=== PATIENT | female | born 1935 ===

== ENCOUNTER → 2020-04-14 13:54 | Outpatient (BNVA) | payer MEDICARE, SELFPAY | PROVIDERS: PCP Internal Medicine; Visit Provider Internal Medicine | DX: J68.3 Other acute and subacute respiratory conditions due to chemicals, gases, fumes and vapors (principal); R05 Cough | CPT/HCPCS: 99202 ==

== ENCOUNTER 2020-05-05 | Outpatient (REF) | payer MEDICARE, SELFPAY | END 2020-05-05 00:01 | disposition home or self-care (01) | LOC: HO.VC | PROVIDERS: Visit Provider Internal Medicine | DX: Z23 Encounter for immunization (principal) | CPT/HCPCS: 0011A ==

== ENCOUNTER 2020-05-10 08:20 | Emergency (ER) | payer MEDICARE, SELFPAY ==
--- NOTE | ~2020-05-10 | CT_ITS ---
EXAMINATION: CT ABDOMEN AND PELVIS WITHOUT CONTRAST CLINICAL INFORMATION: Back pain. COMPARISON: None. TECHNIQUE: Multidetector volumetric imaging was performed from the superior aspect of the liver through the pubic symphysis. Sagittal and coronal reformatted images were obtained on the technologist's workstation. This CT examination was performed using dose optimization techniques as appropriate, variously including the following: *Automated exposure control *Adjustment of mA and/or kV according to patient size (this includes techniques or standardized protocols for targeted exams where dose is matched to indication/reason for exam; i.e. extremities or head) *Use of iterative reconstruction technique DLP: 555 mGy-cm. FINDINGS: LUNG BASES: Minimal bibasilar scarring or atelectasis. There is a 6 mm nodule right lower lobe, axial image 6/7 and a 5 mm right lower lobe nodule, axial image 3/7. The heart size is normal. LIVER, GALLBLADDER, AND BILIARY TREE: The liver is normal in size, shape, and attenuation. No focal hepatic lesion or biliary ductal dilatation is present. There are multiple radiopaque dependent gallstones. No wall thickening seen. PANCREAS: Unremarkable. SPLEEN: Unremarkable. ADRENAL GLANDS: Unremarkable. KIDNEYS AND URETERS: The kidneys are normal in size, shape, and attenuation. No hydronephrosis, hydroureter, or calculi seen. No perinephric stranding. BLADDER: The bladder is distended and appears unremarkable.. GASTROINTESTINAL TRACT: There is scattered diverticulosis and stool throughout the colon without distention or diverticulitis. The small bowel loops are normal caliber. Appendix is normal caliber. The stomach is nondistended. ABDOMINAL WALL: No significant hernia is appreciated. LYMPH NODES: Normal. VASCULAR: Unremarkable. PELVIC VISCERA: The uterus is anteverted and appears unremarkable. There is no free fluid or free air. No abnormal pelvic lymph nodes seen. OSSEOUS STRUCTURES: No lytic or sclerotic process seen. Mild degenerative disc changes, spondylosis with vacuum disc phenomena throughout the lumbar spine. There is mild compression deformity L1 vertebra of indeterminate age. There is moderate bilateral L5-S1, L4-L5, L3-L4 facet joint arthropathy. CT/CT abdomen pelvis wo con IMPRESSION: No acute intra-abdominal process seen. Moderate constipation and scattered colonic diverticulosis but no diverticulitis or obstruction seen. Cholelithiasis without wall thickening. No radiopaque urolith or hydroureteronephrosis. Two small lung nodules in right lower lobe. Correlate with CT chest exam.
--- NOTE | ~2020-05-10 | XR_ITS ---
EXAMINATION: XR LUMBOSACRAL SPINE CLINICAL INFORMATION: Pain COMPARISON: None TECHNIQUE: Three views of the lumbosacral spine. FINDINGS: There is a severe thoracolumbar scoliosis. There is a severe old-appearing T12 vertebral body fracture. There is evidence of multilevel degenerative disc disease. There is lower lumbar spine facet arthritis. There is a 4 x 7 mm calcification that projects over the left kidney questionable for a stone. XR/XR lumbar spine 2-3V IMPRESSION: Old T12 vertebral body compression fracture. Scoliosis, multilevel degenerative disc disease and facet arthritis. Question left renal stone.
--- NOTE | ~2020-05-10 | XR_ITS ---
EXAMINATION: LEFT HIP AND FEMUR X-RAY CLINICAL INFORMATION: Pain COMPARISON: None TECHNIQUE: 2 views of the left hip, one view of the pelvis and 2 views of the left femur FINDINGS: Left hip and pelvis: There is moderate bilateral hip arthritis with joint space narrowing and osteophyte formation. No fracture or dislocation is seen. Bones of the pelvis are unremarkable. There is atherosclerotic disease. Left femur: There is a left 3 component knee replacement. There is no knee joint effusion. No fracture or dislocation is seen. There is evidence of atherosclerotic disease. XR/XR hip LT w PEL1V IMPRESSION: Moderate bilateral hip arthritis. Left knee replacement. Atherosclerotic disease.
--- NOTE | ~2020-05-10 | XR_ITS ---
EXAMINATION: LEFT HIP AND FEMUR X-RAY CLINICAL INFORMATION: Pain COMPARISON: None TECHNIQUE: 2 views of the left hip, one view of the pelvis and 2 views of the left femur FINDINGS: Left hip and pelvis: There is moderate bilateral hip arthritis with joint space narrowing and osteophyte formation. No fracture or dislocation is seen. Bones of the pelvis are unremarkable. There is atherosclerotic disease. Left femur: There is a left 3 component knee replacement. There is no knee joint effusion. No fracture or dislocation is seen. There is evidence of atherosclerotic disease. XR/XR femur LT 2V IMPRESSION: Moderate bilateral hip arthritis. Left knee replacement. Atherosclerotic disease.
[2020-05-10 08:36] VITALS: BP 144/70; PULSE 71; RESP 18; TEMP 36.5; O2SAT 97; BMI 27.8
--- NOTE | 2020-05-10 08:48 | ED.BACK ---
HPI - Back Pain/Injury General Chief Complaint: Back Pain/Injury Stated Complaint: LOW BACK PAIN,NO INJURY PER EMS Time Seen by Provider: 05/10/20 08:28 Source: patient Mode of arrival: ambulatory Limitations: no limitations History of Present Illness HPI Narrative: 84 yo past medical history of high cholesterol, hypothyroidism, hypertension, seizure disorder, anxiety, gout, GERD, reactive airway disease here with complaints of left hip/lower back pain with radiation down left posterior thigh. NO numbness/tingling. Pain began yesterday, Denies fall or injury. Patient has bladder incontinence which is chronic and unchanged. She denies any bowel incontinence. No saddle anesthesia. No fevers or chills or abdominal pain or nausea or vomiting. Taking naproxen with continued symptoms. MD elicited complaint: back pain Onset (ago): day(s) Related Data Home Medications Medication Instructions Recorded Confirmed aspirin 81 mg tablet,delayed 81 mg PO DAILY 02/16/20 02/16/20 release levothyroxine 88 mcg tablet 88 mcg PO DAILY 02/16/20 02/16/20 terazosin 2 mg capsule 2 mg PO DAILY 02/16/20 02/16/20 mirabegron 25 mg tablet,extended 25 mg PO DAILY 02/24/20 release 24 hr Previous Rx's Medication Instructions Recorded triamcinolone acetonide 0.5 % 1 applic TOPICAL BID #15 g 02/16/20 topical cream divalproex 125 mg tablet,delayed 125 mg PO BID #360 tab 02/24/20 release meloxicam 15 mg tablet 15 mg PO DAILY #30 tab 03/21/20 fluticasone 250 mcg-salmeterol 50 1 inh INHALATION BID 30 Days #60 ea 04/14/20 mcg/dose blistr powdr for inhalation lorazepam 1 mg tablet 0.5 mg PO DAILY PRN 90 Days #45 tab 04/14/20 amlodipine 5 mg tablet 5 mg PO DAILY #90 tab 04/21/20 omeprazole 20 mg capsule,delayed 20 mg PO BID #180 cap 05/04/20 release cyclobenzaprine 10 mg PO TID PRN #10 tab 05/10/20 lidocaine [Lidoderm] 1 patch TOPICAL DAILY #15 ea 05/10/20 Allergies Allergy/AdvReac Type Severity Reaction Status Date / Time hydrochlorothiazide Allergy Unknown Electrolyte Verified 05/10/20 08:47 abnormality oxycodone [OXYCODONE] Allergy Unknown VOMITTING,C Verified 05/10/20 08:47 ONFUSION Review of Systems Review of Systems: Yes all other systems are reviewed and are negative Constitutional: Constitutional: Reports no additional constitutional complaints, Denies body ache(s), Denies chills, Denies fever(s), Denies headache(s) and Denies weakness Eyes: Eyes: Reports no additional eye complaints and Denies change in vision ENT: Reports system reviewed and no additional complaints, except as documented, Denies dizziness, Denies headache(s), Denies nasal congestion, Denies nasal discharge and Denies neck pain Cardiovascular: Cardiovascular: Reports no additional cardiovascular complaints, Denies chest pain, Denies leg edema and Denies dyspnea Respiratory: Respiratory: Reports no additional respiratory complaints, Denies cough and Denies dyspnea Gastrointestinal: Gastrointestinal: Reports no additional gastrointestinal complaints, Denies abdominal pain, Denies diarrhea, Denies nausea and Denies vomiting Genitourinary: Genitourinary: Reports no additional female genitourinary complaints and Denies urinary incontinence Musculoskeletal: Musculoskeletal: Reports no additional musculoskeletal complaints, Reports back pain, Denies arthralgias, Denies joint swelling, Denies neck pain, Denies numbness and Denies tingling Integumentary/Breasts: Skin/Breast: Reports system reviewed and no additional complaints, except as docu and Denies rash Neurologic: Reports system reviewed and no additional complaints, except as documented, Denies Abnormal speech present, Denies dizziness, Denies headache(s), Denies numbness, Denies tingling and Denies weakness [facility] Past Medical History Attestation statement: The following information was validated with the patient. Source: old records reviewed and nursing notes reviewed Medical History Anxiety Cholelithiasis CVA (cerebral vascular accident) GERD (gastroesophageal reflux disease) Gout Hypercholesterolemia Hypertension Hypothyroid Obesity (BMI 30-39.9) Pneumonia Psoriatic arthritis Reactive airways dysfunction syndrome Seizure disorder Vitamin D deficiency Surgical History History of knee replacement procedure of right knee History of left knee replacement Family History Family History Father No problems noted. Mother Acute CVA (cerebrovascular accident) Diabetes Brother Cancer Daughter History of nephrectomy Son Heart disease Social History Social History Advance Directives: No Advance Directives Information Provided: Yes Physical Exam Vital Signs: Vital Signs: Last Vital Signs Temp 97.7 F 05/10/20 08:36 Pulse 68 05/10/20 12:47 Resp 16 05/10/20 12:47 BP 143/68 H 05/10/20 12:47 Pulse Ox 98 05/10/20 12:47 Body Mass Index 27.8 Const: General: cooperative, healthy appearing, comfortable and no acute distress Orientation/consciousness: patient oriented x3 Limitations: no limitations HENMT: Head: Yes normal to inspection Ears: hearing grossly normal bilaterally General nose exam: Normal external nose present Face and sinus: Yes normal facial exam Mouth: Normal oral and palatal mucosa present Throat: Yes posterior oropharynx normal Eyes: General: appearance normal, both eyes and all related structures Pupils: Equal, round and reactive pupils present Neck: Neck: Yes normal visual inspection Chest: Chest palpation & inspection: normal inspection of the chest Resp: Effort & Inspection: normal respiratory effort Auscultation: clear to auscultation bilaterally Cardio: Rate: regular rate Rhythm: regular rhythm Peripheral pulses: Peripheral pulses 2+ throughout GI: Inspection: Yes normal to inspection Palpation (GI): Soft to palpation and nontender Auscultation: normal bowel sounds Rectal Exam - Female: normal sphincter tone Back/Spine/Pelvis: Thoracic/Lumbar Spine: thoracic and lumbar spine normal to inspection Skin: General skin exam: no rashes or lesions noted Neuro: General: patient oriented x3, no focal motor deficits and normal sensation to monofilament Cranial nerves: Yes Equal, round and reactive pupils present Cognition (Neuro): normal cognition Speech: No Abnormal speech present Gait exam (Neuro): Normal gait present Motor exam (neuro): 5/5 motor strength present throughout Sensory Exam: Normal double simultaneous stimulation for sensation Deep tendon reflexes (DTR's): Right patellar reflex intensity grade: 2+, Left patellar reflex intensity grade: 2+, Right ankle reflex intensity grade: 2+ and Left ankle reflex intensity grade: 2+ Extrem: Other: Pain over lateral left hip. Able to abduct and adduct with no issues. No pain with internal or external rotation. Leg is not shortened or rotated. Pain over left buttocks. Pain is worsened with straight leg raise. Palpable pulses distally noted. Normal sensation. General: Yes normal to inspection Course Course Course Narrative: 84-year-old female here with atraumatic lower back/left buttocks and left hip pain times 1-2 days. Normal neurological exam. No obvious shortening or rotation of the extremity. Will check x-rays, UA. Provide analgesia and reassess. 0945-x-ray show old T12 compression fracture. Scoliosis with multilevel degenerative disc disease and arthritis. Bilateral hip arthritis. No acute fracture or dislocation. There is a questionable left renal stone. Less likely renal colic with no CVA tenderness however does have persistent left lower back pain so will check CT a/P to rule out renal colic. Add on labs. 1405-CT shows no signs of kidney stone. There are 2 lesions in the right lower lung as well as evidence of gallstones with no acute cholecystitis. The patient has no pain over the right upper quadrant or vomiting. She has no complaints of shortness of breath or chest pain. I did communicate these findings to the patient as well as her daughter Katie and recommended follow-up outpatient with primary care. Patient is feeling much improved and pain is resolved. She was able to ambulate in the emergency department with a steady gait. Plan to discharge home with outpatient follow-up. She does live with her daughter and feels safe going home. Reviewed worrisome signs and symptoms of when to return to the emergency department. Comfortable discharge home. MDM - Back Pain/Injury Medical Records Attestation: I reviewed the patient's medical records. Lab Data Attestation: I reviewed the patient's lab results. Result diagrams: 05/10/20 10:28 05/10/20 12:03 Labs: Lab Results 05/10/20 05/10/20 05/10/20 Range/Units 10:28 11:38 12:03 WBC 6.8 (4.8-10.8) X10*3/uL RBC 4.31 (4.20-5.50) X10*6/uL Hgb 12.8 (12.0-16.0) g/dl Hct 38.5 (37-47) % MCV 89.3 (80-98) fL MCH 29.7 (27.0-33.0) pg MCHC 33.2 (31.0-35.0) g/dl RDW 12.9 (11.0-16.0) % Plt Count 166 (160-400) X10*3/uL MPV 10.0 (9.4-12.3) fL Immature Gran % (Auto) 0.3 (0.0-0.4) % Neut % (Auto) 71.5 (45-73) % Lymph % (Auto) 13.0 L (20-40) % [place] % (Auto) 8.9 (2-11) % Eos % (Auto) 5.6 H (0-4) % Baso % (Auto) 0.7 (0-2) % Lymph # (Auto) 0.9 L (1.2-4.9) X10*3/uL [place] # (Auto) 0.6 (0.1-1.2) X10*3/uL Eos # (Auto) 0.4 (0.0-0.4) X10*3/uL Baso # (Auto) 0.1 (0.0-0.2) X10*3/uL Abs Immat Gran (auto) 0.02 (0.00-0.03) X10*3/uL Absolute Neuts (auto) 4.8 (2.0-8.3) X10*3/uL Absolute Nucleated RBC 0.000 (0.0-0.012) X10*3/uL Nucleated RBC % (auto) 0.0 (0.0-0.2) /100WBC Sodium 135 (135-145) mmol/L Potassium 4.4 (3.3-5.1) mmol/L Chloride 100 (96-108) mmol/L Carbon Dioxide 29 (22-29) mmol/L Anion Gap 10 L (12-20) BUN 9 (9-16) mg/dL Creatinine 0.69 (0.5-1.4) mg/dL Estim Creat Clear Calc 56.2 Estimated GFR > 60 Random Glucose 94 (60-115) mg/dL Calcium 8.9 (8.4-10.2) mg/dL Urine Color STRAW Urine Appearance CLEAR Urine pH 8.0 (5.0-8.0) Ur Specific [place] 1.010 (1.005-1.025) Urine Protein NEG (NEG-TRACE) MG/DL Urine Glucose (UA) NEG (NEG) MG/DL Urine Ketones NEG (NEG) MG/DL Urine Blood TRACE (NEG) Urine Nitrite NEG (NEG) Ur Leukocyte Esterase NEG (NEG) Urine RBC 10-14 H (0) /HPF Urine WBC 0 (0-4) /HPF Ur Squamous Epith Cells NONE /LPF Urine Bacteria NONE /LPF Imaging Data left femur, left hip, lumbar spine : Attestation: I personally reviewed and interpreted this imaging study as follows: Radiologist's impression: EXAMINATION: LEFT HIP AND FEMUR X-RAY CLINICAL INFORMATION: Pain COMPARISON: None TECHNIQUE: 2 views of the left hip, one view of the pelvis and 2 views of the left femur FINDINGS: Left hip and pelvis: There is moderate bilateral hip arthritis with joint space narrowing and osteophyte formation. No fracture or dislocation is seen. Bones of the pelvis are unremarkable. There is atherosclerotic disease. Left femur: There is a left 3 component knee replacement. There is no knee joint effusion. No fracture or dislocation is seen. There is evidence of atherosclerotic disease. XR/XR hip LT w PEL1V IMPRESSION: Moderate bilateral hip arthritis. Left knee replacement. Atherosclerotic disease. EXAMINATION: XR LUMBOSACRAL SPINE CLINICAL INFORMATION: Pain COMPARISON: None TECHNIQUE: Three views of the lumbosacral spine. FINDINGS: There is a severe thoracolumbar scoliosis. There is a severe old-appearing T12 vertebral body fracture. There is evidence of multilevel degenerative disc disease. There is lower lumbar spine facet arthritis. There is a 4 x 7 mm calcification that projects over the left kidney questionable for a stone. XR/XR lumbar spine 2-3V IMPRESSION: Old T12 vertebral body compression fracture. Scoliosis, multilevel degenerative disc disease and facet arthritis. Question left renal stone. CT scan - abdomen: Attestation: I personally reviewed and interpreted this imaging study as follows: Radiologist's impression: EXAMINATION: CT ABDOMEN AND PELVIS WITHOUT CONTRAST CLINICAL INFORMATION: Back pain. COMPARISON: None. TECHNIQUE: Multidetector volumetric imaging was performed from the superior aspect of the liver through the pubic symphysis. Sagittal and coronal reformatted images were obtained on the technologist's workstation. This CT examination was performed using dose optimization techniques as appropriate, variously including the following: *Automated exposure control *Adjustment of mA and/or kV according to patient size (this includes techniques or standardized protocols for targeted exams where dose is matched to indication/reason for exam; i.e. extremities or head) *Use of iterative reconstruction technique DLP: 555 mGy-cm. FINDINGS: LUNG BASES: Minimal bibasilar scarring or atelectasis. There is a 6 mm nodule right lower lobe, axial image 6/7 and a 5 mm right lower lobe nodule, axial image 3/7. The heart size is normal. LIVER, GALLBLADDER, AND BILIARY TREE: The liver is normal in size, shape, and attenuation. No focal hepatic lesion or biliary ductal dilatation is present. There are multiple radiopaque dependent gallstones. No wall thickening seen. PANCREAS: Unremarkable. SPLEEN: Unremarkable. ADRENAL GLANDS: Unremarkable. KIDNEYS AND URETERS: The kidneys are normal in size, shape, and attenuation. No hydronephrosis, hydroureter, or calculi seen. No perinephric stranding. BLADDER: The bladder is distended and appears unremarkable.. GASTROINTESTINAL TRACT: There is scattered diverticulosis and stool throughout the colon without distention or diverticulitis. The small bowel loops are normal caliber. Appendix is normal caliber. The stomach is nondistended. ABDOMINAL WALL: No significant hernia is appreciated. LYMPH NODES: Normal. VASCULAR: Unremarkable. PELVIC VISCERA: The uterus is anteverted and appears unremarkable. There is no free fluid or free air. No abnormal pelvic lymph nodes seen. OSSEOUS STRUCTURES: No lytic or sclerotic process seen. Mild degenerative disc changes, spondylosis with vacuum disc phenomena throughout the lumbar spine. There is mild compression deformity L1 vertebra of indeterminate age. There is moderate bilateral L5-S1, L4-L5, L3-L4 facet joint arthropathy. CT/CT abdomen pelvis wo con IMPRESSION: No acute intra-abdominal process seen. Moderate constipation and scattered colonic diverticulosis but no diverticulitis or obstruction seen. Cholelithiasis without wall thickening. No radiopaque urolith or hydroureteronephrosis. Two small lung nodules in right lower lobe. Correlate with CT chest exam. Discharge Plan Discharge Clinical Impression: Sciatica Qualifiers: Laterality: left Qualified Code(s): M54.32 - Sciatica, left side Patient Disposition: Home, Self-Care Instructions: Sciatica (ED) Additional Instructions: Heat to the area Gentle stretching Continue tylenol and aleve for pain as needed Your CT shows a lot of arthritis as well as an old compression fracture in the back. There are also several gall stones in the gallbladder and 2 lesions noted on the right lower lung. You can follow-up with your doctor in regards to this. Prescriptions: New cyclobenzaprine 10 mg tablet 10 mg PO TID PRN (Reason: muscle spasm) Qty: 10 RF: 0 lidocaine [Lidoderm] 5 % adhesive patch,medicated 1 patch topical DAILY Qty: 15 RF: 0 No Action Myrbetriq 25 mg tablet extended release 24 hr 25 mg PO DAILY RF: 0 divalproex 125 mg tablet,delayed release (DR/EC) 125 mg PO BID Qty: 360 RF: 0 meloxicam 15 mg tablet 15 mg PO DAILY Qty: 30 RF: 2 lorazepam 1 mg tablet 0.5 mg PO DAILY PRN (Reason: anxiety) 90 Days Qty: 45 RF: 0 amlodipine 5 mg tablet 5 mg PO DAILY Qty: 90 RF: 1 omeprazole 20 mg capsule,delayed release(DR/EC) 20 mg PO BID Qty: 180 RF: 2 levothyroxine 88 mcg tablet 88 mcg PO DAILY RF: 0 aspirin [Adult Aspirin Regimen] 81 mg tablet,delayed release (DR/EC) 81 mg PO DAILY RF: 0 terazosin 2 mg capsule 2 mg PO DAILY RF: 0 triamcinolone acetonide 0.5 % cream 1 applic topical BID Qty: 15 RF: 0 fluticasone propion-salmeterol [Advair Diskus] 250-50 mcg/dose blister with device 1 inh inhalation BID 30 Days Qty: 60 RF: 2 Referrals: Physician,Unknown [Primary Care Provider] - 2 days Interventions: ED Discharge Assessment Last Done: 05/10/20 15:05 Discharge Date/Time: 05/10/20 14:30
--- NOTE | 2020-05-10 09:11 | PC.NURSE ---
MONICA DAUGHTER [phone]
[2020-05-10] MEDS: Cyclobenzaprine HCl 10 MG TABLET PO (09:16)
[2020-05-10] MEDS: Acetaminophen 325 MG TABLET 975 MG PO (09:16)
[2020-05-10] MEDS: Lidocaine 4 % Patch ADH..PATCH 1 PATCH TRANSDERMA (09:17)
[2020-05-10 10:33] LABS: MANUAL DIFF FLAG NO
[2020-05-10 10:35] LABS: Basophils Absolute Auto 0.1 X10*3/uL (0.0-0.2); Basophils Percent Auto 0.7 % (0-2); Eosinophils Absolute Auto 0.4 X10*3/uL (0.0-0.4); Eosinophils Percent Auto 5.6 % (0-4); Hematocrit 38.5 % (37-47); Hemoglobin 12.8 g/dl (12.0-16.0); Imm Gran Abs Auto 0.02 X10*3/uL (0.00-0.03); Imm Gran Pct Auto 0.3 % (0.0-0.4); Lymphocytes Absolute Auto 0.9 X10*3/uL (1.2-4.9); Mean Corpuscular HGB Conc 33.2 g/dl (31.0-35.0); Mean Corpuscular Hemoglobin 29.7 pg (27.0-33.0); Mean Corpuscular Volume 89.3 fL (80-98); Monocytes Absolute Auto 0.6 X10*3/uL (0.1-1.2); Monocytes Percent Auto 8.9 % (2-11); Neutrophils Absolute Auto 4.8 X10*3/uL (2.0-8.3); Neutrophils Percent Auto 71.5 % (45-73); Platelet Count 166 X10*3/uL (160-400); Red Blood Count 4.31 X10*6/uL (4.20-5.50); Red Cell Distribution Width 12.9 % (11.0-16.0); White Blood Count 6.8 X10*3/uL (4.8-10.8)
[2020-05-10 12:08] LABS: Glucose Urine UA NEG (NEG); Leukocyte Esterase Urine NEG (NEG); Nitrite Urine NEG (NEG); Urine Blood TRACE (NEG); Urine Ketones NEG (NEG); Urine Protein NEG (NEG-TRACE)
[2020-05-10 12:16] LABS: Appearance Urine CLEAR; Color Urine STRAW
--- NOTE | 2020-05-10 12:30 | PC.NURSE ---
RADIOLOGY NOTIFIED OF TARDY CT SCAN REPORT, STILL AWAITING. PT REPORTS DECREASED PAIN IN L LOWER BACK.
[2020-05-10 12:44] LABS: Anion Gap 10 (12-20); Blood Urea Nitrogen 9 mg/dL (9-16); Calcium 8.9 mg/dL (8.4-10.2); Carbon Dioxide 29 mmol/L (22-29); Chloride 100 mmol/L (96-108); Creatinine Clr Calc Pharmacy 56.2; Estimated Glomerular Filt Rate > 60; Glucose Random 94 mg/dL (60-115); Potassium 4.4 mmol/L (3.3-5.1); Sodium 135 mmol/L (135-145)
[2020-05-10 12:44] LABS: WBC Urine 0 /HPF (0-4)
[2020-05-10 12:47] VITALS: BP 143/68; PULSE 68; RESP 16; O2SAT 98
--- NOTE | 2020-05-10 13:07 | PC.NURSE ---
RADIOLOGY NOTIFIED OF DELAYED CT SCAN REPORT. PT REPORTING DECREASED PAIN.
== END 2020-05-10 14:30 | disposition home or self-care (01) ==
PROVIDERS: Nurse Practitioner Family; Emergency Provider Emergency Medicine
DX: M54.42 Lumbago with sciatica, left side (principal); M51.36 Other intervertebral disc degeneration, lumbar region; K80.20 Calculus of gallbladder without cholecystitis without obstruction; R91.8 Other nonspecific abnormal finding of lung field; I10 Essential (primary) hypertension
CPT/HCPCS: 36415; 72100; 73502; 73552; 74176; 80048; 81001; 81003; 85025; 99284

== ENCOUNTER 2020-06-01 | Outpatient (REF) | payer MEDICARE, SELFPAY | END 2020-06-01 00:01 | disposition home or self-care (01) | LOC: HO.VC | PROVIDERS: Visit Provider Internal Medicine | DX: Z23 Encounter for immunization (principal) | CPT/HCPCS: 0012A ==

== ENCOUNTER 2020-06-24 15:00 | Outpatient (REF) | payer MEDICARE, SELFPAY ==
[2020-06-24 16:09] LABS: MANUAL DIFF FLAG NO
[2020-06-24 16:16] LABS: Basophils Percent Auto 0.6 % (0-2); Eosinophils Absolute Auto 0.3 X10*3/uL (0.0-0.4); Eosinophils Percent Auto 3.7 % (0-4); Hematocrit 37.2 % (37-47); Hemoglobin 12.4 g/dl (12.0-16.0); Imm Gran Abs Auto 0.01 X10*3/uL (0.00-0.03); Imm Gran Pct Auto 0.1 % (0.0-0.4); Lymphocytes Absolute Auto 0.8 X10*3/uL (1.2-4.9); Lymphocytes Percent Auto 12.1 % (20-40); Mean Corpuscular HGB Conc 33.3 g/dl (31.0-35.0); Mean Corpuscular Hemoglobin 29.4 pg (27.0-33.0); Mean Corpuscular Volume 88.2 fL (80-98); Mean Platelet Volume 10.6 fL (9.4-12.3); Monocytes Absolute Auto 0.6 X10*3/uL (0.1-1.2); Monocytes Percent Auto 8.5 % (2-11); Neutrophils Absolute Auto 5.2 X10*3/uL (2.0-8.3); Platelet Count 182 X10*3/uL (160-400); Red Blood Count 4.22 X10*6/uL (4.20-5.50); Red Cell Distribution Width 12.9 % (11.0-16.0); White Blood Count 6.9 X10*3/uL (4.8-10.8)
[2020-06-24 16:33] LABS: Alanine Aminotransferase 13 U/L (0-31); Albumin Level 3.9 g/dL (3.5-5.0); Alkaline Phosphatase 62 U/L (39-117); Anion Gap 15 (12-20); Aspartate Amino Transferase 12 U/L (5-31); Bilirubin Total 0.4 mg/dL (0.0-1.0); Blood Urea Nitrogen 9 mg/dL (9-16); Calcium 8.8 mg/dL (8.4-10.2); Carbon Dioxide 26 mmol/L (22-29); Chloride 99 mmol/L (96-108); Estimated Glomerular Filt Rate > 60; Glucose Random 99 mg/dL (60-115); Potassium 3.8 mmol/L (3.3-5.1); Sodium 136 mmol/L (135-145); Total Protein 6.4 g/dL (6.5-8.0)
[2020-06-24 16:54] LABS: Thyroid Stimulating Hormone 0.26 uIU/mL (0.32-4.0)
[2020-06-24 17:02] LABS: Erythrocyte Sedimentation Rate 4 MM/HR (0-20)
== END 2020-06-24 15:01 | disposition home or self-care (01) ==
LOC: HO.LAB 15:00
PROVIDERS: PCP Internal Medicine; Visit Provider Internal Medicine
DX: R51.9 Headache, unspecified (principal)
CPT/HCPCS: 36415; 80053; 84443; 85025; 85652

== ENCOUNTER 2020-06-28 12:51 | Outpatient (REF) | payer MEDICARE, SELFPAY ==
--- NOTE | ~2020-06-28 | CT_ITS ---
EXAMINATION: CT HEAD WITHOUT CONTRAST CLINICAL INFORMATION: Headache. COMPARISON: None TECHNIQUE: Contiguous axial imaging was performed from the skull base to vertex without intravenous administration of contrast. This CT examination was performed using dose optimization techniques as appropriate, variously including the following: *Automated exposure control *Adjustment of mA and/or kV according to patient size (this includes techniques or standardized protocols for targeted exams where dose is matched to indication/reason for exam; i.e. extremities or head) *Use of iterative reconstruction technique DLP: 720 mGy-cm FINDINGS: There is no evidence of acute intracranial hemorrhage or territorial infarction. There is scattered small lacunar infarcts in the left basal ganglia No abnormal mass effect or midline shift is seen. [place] to white matter differentiation is well preserved. No extra-axial fluid collections are identified. The ventricles are enlarged but symmetrical. There is extensive periventricular white matter changes suggesting chronic small vessel. Bone windows reveal no calvarial abnormality. There is no scalp soft tissue abnormality. Bilateral paranasal sinuses and mastoid air cells are well-aerated. CT/CT head/brain wo con IMPRESSION: No acute intracranial process seen Age-related mild cerebral atrophy with chronic small vessel ischemic changes Small lacunar infarcts in left basal ganglia.
== END 2020-06-28 12:52 | disposition home or self-care (01) ==
LOC: HO.CT 12:51
PROVIDERS: PCP Internal Medicine; Visit Provider Internal Medicine
DX: R51.9 Headache, unspecified (principal)
CPT/HCPCS: 70450

== ENCOUNTER 2020-08-16 19:13 | Emergency (ER) | payer MEDICARE, SELFPAY ==
[2020-08-16 20:55] VITALS: BP 148/83; PULSE 72; RESP 20; TEMP 36.7; O2SAT 98; BMI 30.2
--- NOTE | 2020-08-16 21:30 | ED.ANIMALBIT ---
HPI - Animal Bite General Chief Complaint: Animal Bite Stated Complaint: dog bite Time Seen by Provider: 08/16/20 21:33 Source: patient Mode of arrival: ambulatory Limitations: no limitations History of Present Illness MD complaint: animal bite Onset (ago): hour(s) Animal: dog Description of animal: household pet, immunizations UTD and appeared well Mechanism: bite Location - Extremities: right: forearm Pain description: dull Context: unprovoked Associated symptoms: none Treatments prior to arrival: wound dressing(s) Related Data Patient tetanus UTD: No Home Medications Medication Instructions Recorded Confirmed aspirin 81 mg tablet,delayed 81 mg PO DAILY 02/16/20 08/13/20 release terazosin 2 mg capsule 2 mg PO DAILY 02/16/20 08/13/20 Previous Rx's Medication Instructions Recorded triamcinolone acetonide 0.5 % 1 applic TOPICAL BID #15 g 02/16/20 topical cream fluticasone 250 mcg-salmeterol 50 1 inh INHALATION BID 30 Days #60 ea 04/14/20 mcg/dose blistr powdr for inhalation amlodipine 5 mg tablet 5 mg PO DAILY #90 tab 04/21/20 omeprazole 20 mg capsule,delayed 20 mg PO BID #180 cap 05/04/20 release lidocaine [Lidoderm] 1 patch TOPICAL DAILY #15 ea 05/10/20 mirabegron 25 mg tablet,extended 25 mg PO DAILY #90 tab 05/12/20 release 24 hr tramadol 50 mg tablet 50 mg PO BEDTIME #30 tab 05/12/20 divalproex 125 mg tablet,delayed 125 mg PO .COMPLEX #360 tab 05/31/20 release meloxicam 15 mg tablet 15 mg PO DAILY #30 tab 06/10/20 levothyroxine 88 mcg tablet 88 mcg PO .COMPLEX #90 tab 06/24/20 sumatriptan succinate 50 mg tablet 50 mg PO .COMPLEX PRN #10 tab 06/24/20 lorazepam 1 mg tablet 0.5 mg PO DAILY PRN 90 Days #45 tab 08/11/20 amoxicillin-pot clavulanate 1 tab PO BID #14 tab 08/16/20 [Augmentin] Allergies Allergy/AdvReac Type Severity Reaction Status Date / Time hydrochlorothiazide Allergy Unknown Electrolyte Verified 08/16/20 20:55 abnormality oxycodone [OXYCODONE] Allergy Unknown VOMITTING,C Verified 08/16/20 20:55 ONFUSION Review of Systems Review of Systems: Constitutional : No Fever, No Chills, Cardiovascular : No Chest Pain, No SOB Respiratory : No Dyspnea Gastrointestinal : No abdominal pain Musculoskeletal : No Joint Swelling Skin : No rash, positive animal bite Neuro : No Weakness, No Numbness Psych : No SI/HI PMFSH Past Medical History Attestation statement: The following information was validated with the patient. Medical History Anxiety Cholelithiasis CVA (cerebral vascular accident) GERD (gastroesophageal reflux disease) Gout Hip osteoarthritis Hypercholesterolemia Hypertension Hypothyroid Obesity (BMI 30-39.9) Overweight (BMI 25.0-29.9) Pneumonia Psoriatic arthritis Reactive airways dysfunction syndrome Seizure disorder Vitamin D deficiency Surgical History History of knee replacement procedure of right knee History of left knee replacement Family History Family History Father No problems noted. Mother Acute CVA (cerebrovascular accident) Diabetes Brother Cancer Daughter History of nephrectomy Son Heart disease Social History Social History Alcohol intake: never Smoking Status: Never smoker Advance Directives: No Advance Directives Information Provided: Yes Physical Exam Vital Signs: Vital Signs: Last Vital Signs Temp 98.1 F 08/16/20 20:55 Pulse 72 08/16/20 20:55 Resp 20 08/16/20 20:55 BP 148/83 H 08/16/20 20:55 Pulse Ox 98 08/16/20 20:55 Body Mass Index 30.2 Appearance: Alert. Oriented X3. No acute distress. Eyes: Pupils equal, round and reactive to light. ENT: Pharynx normal. Neck: Normal inspection. Neck supple. CVS: Pulses normal. Respiratory: No respiratory distress. Abdomen: Soft and nontender. Skin: Skin warm and dry. Normal skin color. Normal skin turgor. Extremities: R forearm one superficial abrasion posterior surface, lower posterior forearm small abrasion puncture wound 1cm no FB noted Neuro: Oriented X 3. No motor deficit. No sensory deficit. MDM - Animal Bite MDM Narrative Medical decision making narrative: 84 yo female s/p her own dog biting her tonight - utd on shots, dog is getting old no concerns for safety, small abrasions/puncture wound on R forearm - no indication for sutures, wound care and update Tdap give augmentin Discharge Plan Discharge Clinical Impression: Dog bite Qualifiers: Encounter type: initial encounter Qualified Code(s): W54.0XXA - Bitten by dog, initial encounter Patient Disposition: Home, Self-Care Instructions: Diphtheria/Acellular Pertussis/Tetanus Vaccine (DTaP) (By injection), Animal Bite (ED) Additional Instructions: return to ED for any worsening symptoms or concerns keep wound covered, monitor for redness, swelling, yellow drainage Prescriptions: New amoxicillin-pot clavulanate [Augmentin] 875-125 mg tablet 1 tab PO BID Qty: 14 RF: 0 No Action amlodipine 5 mg tablet 5 mg PO DAILY Qty: 90 RF: 1 omeprazole 20 mg capsule,delayed release(DR/EC) 20 mg PO BID Qty: 180 RF: 2 divalproex 125 mg tablet,delayed release (DR/EC) 125 mg PO .COMPLEX Qty: 360 RF: 11 meloxicam 15 mg tablet 15 mg PO DAILY Qty: 30 RF: 5 levothyroxine 88 mcg tablet 88 mcg PO .COMPLEX Qty: 90 RF: 2 lorazepam 1 mg tablet 0.5 mg PO DAILY PRN (Reason: anxiety) 90 Days Qty: 45 RF: 1 lidocaine [Lidoderm] 5 % adhesive patch,medicated 1 patch topical DAILY Qty: 15 RF: 0 tramadol 50 mg tablet 50 mg PO BEDTIME Qty: 30 RF: 1 Myrbetriq 25 mg tablet extended release 24 hr 25 mg PO DAILY Qty: 90 RF: 1 aspirin [Adult Aspirin Regimen] 81 mg tablet,delayed release (DR/EC) 81 mg PO DAILY RF: 0 terazosin 2 mg capsule 2 mg PO DAILY RF: 0 triamcinolone acetonide 0.5 % cream 1 applic topical BID Qty: 15 RF: 0 sumatriptan succinate [Imitrex] 50 mg tablet 50 mg PO .COMPLEX PRN (Reason: migraine headache) Qty: 10 RF: 1 fluticasone propion-salmeterol [Advair Diskus] 250-50 mcg/dose blister with device 1 inh inhalation BID 30 Days Qty: 60 RF: 2 Referrals: Po,Lorenver O, MD [Primary Care Provider] - 2 days (for wound check)
[2020-08-16] MEDS: Diphth,Pertus(ACell),Tet Adult 0.5 ML SYRINGE IM (21:54)
[2020-08-16] MEDS: Amoxicillin/Potassium Clav 875 MG TABLET PO (21:55)
== END 2020-08-16 22:03 | disposition home or self-care (01) ==
PROVIDERS: Emergency Provider Emergency Medicine; PCP Internal Medicine
DX: S50.871A Other superficial bite of right forearm, initial encounter (principal); M79.631 Pain in right forearm; W54.0XXA Bitten by dog, initial encounter; Y93.9 Activity, unspecified; Y92.9 Unspecified place or not applicable; Y99.9 Unspecified external cause status; Z79.899 Other long term (current) drug therapy; Z79.82 Long term (current) use of aspirin
CPT/HCPCS: 90471; 90715; 99284

== ENCOUNTER 2021-05-05 17:26 | Outpatient (REF) | payer MEDICARE, SELFPAY ==
--- NOTE | ~2021-05-05 | XR_ITS ---
EXAMINATION: XR PELVIS XR SACRUM AND COCCYX XR HIPS, BILATERAL. CLINICAL INFORMATION: Hip and pelvic pain. COMPARISON: 05/10/2020 TECHNIQUE: AP radiograph of the pelvis. 3 views of the sacrum and coccyx. AP and frog-lateral views of each hip. FINDINGS: Normal alignment of the sacrum and coccyx with no fracture. Vtzu-nn-gnkygiop bilateral hip osteoarthritis with superomedial joint space narrowing, not significantly changed. No acute osseous abnormality. Mild bilateral sacroiliac osteoarthritis appears similar. Diffuse vascular calcifications. Severe degenerative disc disease and scoliosis of the visualized lumbar spine. XR/XR pelvis 1-2V IMPRESSION: Moderate bilateral hip osteoarthritis. No acute abnormalities. No significant change.
--- NOTE | ~2021-05-05 | XR_ITS ---
EXAMINATION: XR PELVIS XR SACRUM AND COCCYX XR HIPS, BILATERAL. CLINICAL INFORMATION: Hip and pelvic pain. COMPARISON: 05/10/2020 TECHNIQUE: AP radiograph of the pelvis. 3 views of the sacrum and coccyx. AP and frog-lateral views of each hip. FINDINGS: Normal alignment of the sacrum and coccyx with no fracture. Zofk-ev-vfnsosog bilateral hip osteoarthritis with superomedial joint space narrowing, not significantly changed. No acute osseous abnormality. Mild bilateral sacroiliac osteoarthritis appears similar. Diffuse vascular calcifications. Severe degenerative disc disease and scoliosis of the visualized lumbar spine. XR/XR hips ATUL min 3V IMPRESSION: Moderate bilateral hip osteoarthritis. No acute abnormalities. No significant change.
--- NOTE | ~2021-05-05 | XR_ITS ---
EXAMINATION: XR PELVIS XR SACRUM AND COCCYX XR HIPS, BILATERAL. CLINICAL INFORMATION: Hip and pelvic pain. COMPARISON: 05/10/2020 TECHNIQUE: AP radiograph of the pelvis. 3 views of the sacrum and coccyx. AP and frog-lateral views of each hip. FINDINGS: Normal alignment of the sacrum and coccyx with no fracture. Srix-hm-tzjtufer bilateral hip osteoarthritis with superomedial joint space narrowing, not significantly changed. No acute osseous abnormality. Mild bilateral sacroiliac osteoarthritis appears similar. Diffuse vascular calcifications. Severe degenerative disc disease and scoliosis of the visualized lumbar spine. XR/XR sacrum coccyx min 2V IMPRESSION: Moderate bilateral hip osteoarthritis. No acute abnormalities. No significant change.
== END 2021-05-05 17:27 | disposition home or self-care (01) ==
LOC: HO.XRAY 17:26
PROVIDERS: PCP Internal Medicine; Visit Provider Nurse Practitioner Family
DX: M79.18 Myalgia, other site (principal); M25.551 Pain in right hip; M25.552 Pain in left hip; Z91.81 History of falling
CPT/HCPCS: 72170; 72220; 73522

== ENCOUNTER 2021-05-10 13:17 | Outpatient (REF) | payer MEDICARE, SELFPAY ==
--- NOTE | ~2021-05-10 | CT_ITS ---
EXAMINATION: CT HEAD WITHOUT CONTRAST CLINICAL INFORMATION: Headache. COMPARISON: CT head 06/28/2020 TECHNIQUE: Contiguous axial imaging was performed from the skull base to vertex without intravenous administration of contrast. Coronal and sagittal reformatted images are performed at the CT scanner. [This CT examination was performed using dose optimization techniques as appropriate, variously including the following: *Automated exposure control *Adjustment of mA and/or kV according to patient size (this includes techniques or standardized protocols for targeted exams where dose is matched to indication/reason for exam; i.e. extremities or head) *Use of iterative reconstruction technique] DLP: 670 mGy-cm. FINDINGS: There is no evidence of acute intracranial hemorrhage or territorial infarction. No abnormal mass-effect or midline shift is seen. Rutledge to white matter differentiation is well preserved. No extra-axial fluid collections are identified. There is generalized global volume loss. There is moderate prominence of the ventricles and the sulci . There is wokmurja-ts-dlukny hypodensity of the periventricular white matter due to chronic small vessel ischemic disease. There are vascular calcifications of the internal carotid arteries bilaterally. There is no osseous abnormality. The mastoid air cells and visualized portions of the paranasal sinuses are well-aerated. CT/CT head/brain wo con IMPRESSION: No acute intracranial pathology.
== END 2021-05-10 13:18 | disposition home or self-care (01) ==
LOC: HO.CT 13:17
PROVIDERS: Visit Provider Nurse Practitioner Family
DX: R51.9 Headache, unspecified (principal); Z91.81 History of falling
CPT/HCPCS: 70450

== ENCOUNTER 2021-05-11 13:21 | Outpatient (REF) | payer MEDICARE, SELFPAY ==
[2021-05-11 13:51] LABS: Appearance Urine CLEAR; Color Urine YELLOW; Glucose Urine UA NEG (NEG); Leukocyte Esterase Urine TRACE (NEG); Nitrite Urine NEG (NEG); UACC Culture Trigger YES; Urine Blood NEG (NEG); Urine Ketones NEG (NEG); Urine Protein NEG (NEG-TRACE)
[2021-05-11 14:15] LABS: Mucus Urine 1+ /LPF; Renal Epithelial Cells Urine 1+ /LPF; Squamous Epithelial Cell Urine 1+ /LPF
[2021-05-11 14:16] LABS: RBC Urine 0 /HPF (0)
== END 2021-05-11 13:22 | disposition home or self-care (01) ==
LOC: HO.LNP 13:21
PROVIDERS: Visit Provider Nurse Practitioner Family
DX: R30.9 Painful micturition, unspecified (principal)
CPT/HCPCS: 81001; 87086

== ENCOUNTER 2021-06-23 07:34 | Outpatient (REF) | payer MEDICARE, SELFPAY ==
[2021-06-23 08:06] LABS: MANUAL DIFF FLAG NO
[2021-06-23 08:39] LABS: Basophils Absolute Auto 0.1 X10*3/uL (0.0-0.2); Basophils Percent Auto 1.1 % (0-2); Eosinophils Absolute Auto 0.4 X10*3/uL (0.0-0.4); Eosinophils Percent Auto 7.5 % (0-4); Hematocrit 39.7 % (37.0-47.0); Hemoglobin 13.1 g/dl (12.0-16.0); Imm Gran Abs Auto 0.01 X10*3/uL (0.00-0.03); Imm Gran Pct Auto 0.2 % (0.0-0.4); Lymphocytes Absolute Auto 0.8 X10*3/uL (1.2-4.9); Lymphocytes Percent Auto 16.8 % (20-40); Mean Corpuscular Hemoglobin 30.2 pg (27.0-33.0); Mean Corpuscular Volume 91.5 fL (80.0-98.0); Mean Platelet Volume 10.3 fL (9.4-12.3); Monocytes Absolute Auto 0.4 X10*3/uL (0.1-1.2); Monocytes Percent Auto 7.7 % (2-11); Neutrophils Absolute Auto 3.1 x10*3/uL (2.0-8.3); Neutrophils Percent Auto 66.7 % (45-73); Platelet Count 197 X10*3/uL (160-400); Red Blood Count 4.34 X10*6/uL (4.20-5.50); Red Cell Distribution Width 12.5 % (11.0-16.0); White Blood Count 4.7 X10*3/uL (4.8-10.8)
[2021-06-23 09:08] LABS: Estimated Average Glucose 103 mg/dL; Hemoglobin A1c % 5.2 %
[2021-06-23 09:15] LABS: Alanine Aminotransferase 7 U/L (0-31); Albumin Level 3.9 g/dL (3.5-5.0); Alkaline Phosphatase 60 U/L (39-117); Anion Gap 12 (12-20); Aspartate Amino Transferase 11 U/L (5-31); Bilirubin Total 0.5 mg/dL (0.0-1.0); Blood Urea Nitrogen 5 mg/dL (9-16); Calcium 9.4 mg/dL (8.4-10.2); Carbon Dioxide 27 mmol/L (22-29); Chloride 102 mmol/L (96-108); Cholesterol 210 mg/dL; Estimated Glomerular Filt Rate > 60; Glucose Random 90 mg/dL (60-115); HDL Cholesterol 47 mg/dL; LDL Cholesterol Calculated 133 mg/dl; Potassium 3.9 mmol/L (3.3-5.1); Sodium 137 mmol/L (135-145); Total Protein 6.3 g/dL (6.5-8.0); Triglycerides 151 mg/dL
[2021-06-23 09:24] LABS: Free T4 (Free Thyroxine) 0.72 ng/dL (0.71-1.85); Thyroid Stimulating Hormone 6.62 uIU/mL (0.32-4.0)
[2021-06-23 09:42] LABS: Folate 8.5 ng/mL (> or = 4.0); Vitamin B12 367 pg/mL (200-900)
[2021-06-23 14:59] LABS: Vitamin D 25-OH Total 9.2 ng/mL (>30)
== END 2021-06-23 07:35 | disposition home or self-care (01) ==
LOC: HO.LAB 07:34
PROVIDERS: PCP Internal Medicine; Visit Provider Internal Medicine
DX: E78.00 Pure hypercholesterolemia, unspecified (principal); E03.9 Hypothyroidism, unspecified; K21.9 Gastro-esophageal reflux disease without esophagitis
CPT/HCPCS: 36415; 80053; 80061; 82306; 82607; 82746; 83036; 84439; 84443; 85025

== ENCOUNTER 2021-07-26 15:13 | Outpatient (REF) | payer MEDICARE, SELFPAY ==
--- NOTE | ~2021-07-26 | US_ITS ---
EXAMINATION: US EXTRACRANIAL CAROTID DUPLEX, BILATERAL CLINICAL INFORMATION: Stenosis identified on CT COMPARISON: 08/16/2012 TECHNIQUE: Real-time ultrasound and Doppler techniques (integrating B-mode 2-D vascular images, Doppler spectral analysis and color-flow Doppler imaging) were utilized to interrogate the extracranial carotid arteries, the vertebral arteries and proximal subclavian arteries bilaterally. The degree of stenosis is determined by criteria similar to NASCET. FINDINGS: Right Side: 1. There is dense calcified atherosclerotic plaque seen in the bifurcation/proximal ICA region. 2. The common carotid artery PSV proximally is 93.2 cm/s and distally 87.4 cm/s. 3. The proximal internal carotid artery velocities are 60.1 cm/s systolic and 14.1 cm/s diastolic. 4. The proximal external carotid artery PSV is 83.8 cm/s. 5. The vertebral artery shows antegrade flow. 6. The subclavian artery waveforms are normal. Left Side: 1. There is dense calcified atherosclerotic plaque seen in the bifurcation/proximal ICA region. 2. The common carotid artery PSV proximally is 87.4 cm/s and distally 82.1 cm/s. 3. The proximal internal carotid artery velocities are 73.9 cm/s systolic and 15.2 cm/s diastolic. 4. The proximal external carotid artery PSV is 139 cm/s. 5. The vertebral artery shows antegrade flow. 6. The subclavian artery waveforms are normal. US/US carotid duplex BI IMPRESSION: 1. RIGHT: Minimal, non-hemodynamically significant stenosis of the proximal right internal carotid artery corresponding to a 0-49% stenosis by velocity criteria. 2. LEFT: Minimal, non-hemodynamically significant stenosis of the proximal left internal carotid artery corresponding to a 0-49% stenosis by velocity criteria.
== END 2021-07-26 15:14 | disposition home or self-care (01) ==
LOC: HO.HMGCX 15:13
PROVIDERS: Visit Provider Nurse Practitioner Family
DX: I65.23 Occlusion and stenosis of bilateral carotid arteries (principal)
CPT/HCPCS: 93880

== ENCOUNTER 2022-01-04 16:59 | Outpatient (REF) | payer MEDICARE, SELFPAY ==
--- NOTE | ~2022-01-04 | XR_ITS ---
EXAMINATION: XR CERVICAL SPINE CLINICAL INFORMATION: Neck pain. COMPARISON: None TECHNIQUE: 3 views of the cervical spine were obtained. FINDINGS: There is mild straightening of cervical lordosis. There is grade 1 anterolisthesis C3 over C4. Rest the alignment is normal. The vertebral heights are normal.. There is loss of C3-C4 and C5-C6 disc heights. Rest of the disc heights are normal. The craniovertebral junction and the C1-C2 alignment is normal. No visible acute fracture, dislocation or subluxation seen. The prevertebral soft tissues are normal. XR/XR cervical spine 3V IMPRESSION: Degenerative disc changes. No visible acute fracture or dislocation seen. Grade I anterolisthesis C3 over C4.
== END 2022-01-04 17:00 | disposition home or self-care (01) ==
LOC: HO.XRAY 16:59
PROVIDERS: Absent Provider Internal Medicine; PCP Internal Medicine; Visit Provider Nurse Practitioner Family
DX: M54.2 Cervicalgia (principal)
CPT/HCPCS: 72040

== ENCOUNTER 2022-02-22 09:34 | Outpatient (REF) | payer MEDICARE, SELFPAY ==
[2022-02-22 09:46] LABS: MANUAL DIFF FLAG NO
[2022-02-22 10:23] LABS: Basophils Absolute Auto 0.1 X10*3/uL (0.0-0.2); Eosinophils Absolute Auto 0.2 X10*3/uL (0.0-0.4); Hemoglobin 13.8 g/dl (12.0-16.0); Imm Gran Abs Auto 0.02 X10*3/uL (0.00-0.03); Imm Gran Pct Auto 0.3 % (0.0-0.4); Lymphocytes Percent Auto 16.5 % (20-40); Mean Corpuscular HGB Conc 32.9 g/dl (31.0-35.0); Mean Corpuscular Hemoglobin 29.6 pg (27.0-33.0); Mean Corpuscular Volume 89.9 fL (80.0-98.0); Mean Platelet Volume 10.3 fL (9.4-12.3); Monocytes Absolute Auto 0.6 X10*3/uL (0.1-1.2); Monocytes Percent Auto 9.4 % (2-11); Neutrophils Absolute Auto 4.1 x10*3/uL (2.0-8.3); Neutrophils Percent Auto 68.8 % (45-73); Platelet Count 198 X10*3/uL (160-400); Red Blood Count 4.67 X10*6/uL (4.20-5.50); Red Cell Distribution Width 12.6 % (11.0-16.0); White Blood Count 5.9 X10*3/uL (4.8-10.8)
[2022-02-22 10:58] LABS: Valproate 48.7 mcg/mL (50.0-100.0)
[2022-02-22 11:19] LABS: Alanine Aminotransferase 9 U/L (0-31); Albumin Level 4.1 g/dL (3.5-5.0); Alkaline Phosphatase 71 U/L (39-117); Anion Gap 13 (12-20); Aspartate Amino Transferase 11 U/L (5-31); Bilirubin Total 0.5 mg/dL (0.0-1.0); Blood Urea Nitrogen 8 mg/dL (9-16); Calcium 9.6 mg/dL (8.4-10.2); Carbon Dioxide 29 mmol/L (22-29); Chloride 100 mmol/L (96-108); Estimated Glomerular Filt Rate > 60; Free T4 (Free Thyroxine) 1.77 ng/dL (0.71-1.85); Glucose Random 87 mg/dL (60-115); Potassium 4.4 mmol/L (3.3-5.1); Sodium 138 mmol/L (135-145); Thyroid Stimulating Hormone 0.28 uIU/mL (0.32-4.0); Total Protein 6.6 g/dL (6.5-8.0)
== END 2022-02-22 09:35 | disposition home or self-care (01) ==
LOC: HO.LAB 09:34
PROVIDERS: PCP Internal Medicine; Visit Provider Internal Medicine
DX: G40.909 Epilepsy, unspecified, not intractable, without status epilepticus (principal)
CPT/HCPCS: 36415; 80053; 80164; 84439; 84443; 85025

== ENCOUNTER 2022-03-01 09:47 | Outpatient (REF) | payer MEDICARE, SELFPAY ==
--- NOTE | ~2022-03-01 | XR_ITS ---
EXAMINATION: XR CHEST CLINICAL INFORMATION: R05 - Cough COMPARISON: Chest radiographs 09/20/2019, 08/14/2019. CT abdomen 05/10/2020. TECHNIQUE: 2 views of the chest were obtained. FINDINGS: There is mild coarsening bronchiolar markings infrahilar region similar to prior exam. No hyperinflation. No airspace consolidation or groundglass opacity or effusion. The costophrenic sulci are clear. The heart is normal in size. There is retrocardiac lucency consistent with a hiatal hernia similar to CT 05/10/2020. The hilar contours are unremarkable. There is no acute bony abnormality. XR/XR chest 2V IMPRESSION: -Mild coarsening bronchiolar markings similar to prior exam. -No vascular congestion, airspace consolidation, groundglass opacity.
== END 2022-03-01 09:48 | disposition home or self-care (01) ==
LOC: HO.XRAY 09:47
PROVIDERS: PCP Internal Medicine; Visit Provider Internal Medicine
DX: R05.9 Cough, unspecified (principal)
CPT/HCPCS: 71046

== ENCOUNTER 2022-03-01 10:00 | Outpatient (RCR) | payer MEDICARE, SELFPAY ==
--- NOTE | 2022-02-07 13:20 | MHC.PT.EP ---
[facility] [place] Office [place] Office [place] Office [address] [place] [phone] F: [phone] F: [phone] F: [phone] F: [phone] Physical Therapy Plan of Care Date of Evaluation: Date of Surgery: Diagnosis: cervicalagia Assessment: 86 y/o F RHD female referred to PT with cervicalgia. She has intermittent chronic neck pain for several years of insidious onset and recently worsened. She notes pain is worse with prolonged reading especially when she keeps the book on the couch to the L. Examination shows decreased cervical/shoulder AROM, decreased shoulder strength, impaired posture, and increased TTP L upper trapezius. Significant education re behavioral modifications such as using bookstand on a table to improve neutral cervical posture while reading as well as taking 'movement breaks' whlie reading. Recommend 2 more visits to distribute HEP, progress posture, and optmiize functional mobility. Frequency and Duration: The patient will be seen 1x/week every other week for 3 weeks Short Term Goals: 1 week I with HEP I with postural modification while reading Detention Goals: 3 weeks I with HEP and self management of sx Reports 50% decrease in pain (IR ranges 3-10) Improve NDI to 10/35 (IR 15/35) Treatment Plan: Modalities to reduce pain, spasms and effusion. Manual therapy to restore motion and function. Therapeutic exercise to improve strength and flexibility. Neuromuscular re-education for posture and balance. Therapeutic activities to return to functional activities of daily living. Electronically signed by: Regi Villarreal PT Please sign and return to therapist. Thank you for your referral.
--- NOTE | 2022-04-17 07:16 | MHC.PT.DC ---
[facility] [place] Office [place] Office [place] Office [address] [place] [address] [phone] F: [phone] F: [phone] F: [phone] F: [phone] Physical Therapy Discharge Report Diagnosis: cervicalagia Date of Surgery: Date of Evaluation: 02/07/22 Date of Discharge: 04/17/22 Treatments to Date: 2 Cancellations to Date: 1 No Shows to Date: 0 Discharge Status: Independent with HEP Patient Elected to Stop Discharge Summary: She cancelled last visit. At last attended visit, reviewed ergonomic adjustments and supported seated posture to decrease cervical strain while reading. She has made these changes and notes some improvement. Pt to continue with gentle HEP. Electronically signed by: Regi Villarreal PT, DPT Please sign and return to therapist. Thank you for your referral.
== END 2022-04-17 07:17 | disposition home or self-care (01) ==
LOC: HO.PT 10:00
PROVIDERS: PCP Internal Medicine; Visit Provider Nurse Practitioner Family
DX: M54.2 Cervicalgia (principal)
CPT/HCPCS: 97110; 97161

== ENCOUNTER 2022-06-05 11:08 | Outpatient (REF) | payer MEDICARE, SELFPAY ==
[2022-06-05 13:32] LABS: Valproate 63.4 mcg/mL (50.0-100.0)
[2022-06-05 13:46] LABS: Free T4 (Free Thyroxine) 1.49 ng/dL (0.71-1.85); Thyroid Stimulating Hormone 0.59 uIU/mL (0.32-4.0)
[2022-06-05 13:50] LABS: Magnesium 1.6 mg/dL (1.6-2.6)
== END 2022-06-05 11:09 | disposition home or self-care (01) ==
LOC: HO.LAB 11:08
PROVIDERS: PCP Internal Medicine; Visit Provider Internal Medicine
DX: E03.9 Hypothyroidism, unspecified (principal); G40.909 Epilepsy, unspecified, not intractable, without status epilepticus
CPT/HCPCS: 36415; 80164; 83735; 84439; 84443

== ENCOUNTER 2022-07-28 10:42 | Outpatient (REF) | payer MEDICARE, SELFPAY ==
[2022-07-28 11:00] LABS: Appearance Urine Clear; Color Urine Dark Yellow; Glucose Urine UA Negative (Negative); Leukocyte Esterase Urine Large (3+) (Negative); Nitrite Urine Positive (Negative); UMIC TRIGGER UACC YES; Urine Blood Negative (Negative); Urine Ketones Negative (Negative); Urine Protein Negative (Neg-Trace)
[2022-07-28 11:06] LABS: Bacteria Urine 3+ (None Seen); Hyaline Casts Urine 0-2 /LPF (0-2); RBC Urine 0-2 /HPF (0-2); UACC Culture Trigger YES; WBC Urine 21-50 /HPF (0-5)
== END 2022-07-28 10:43 | disposition home or self-care (01) ==
LOC: HO.LNP 10:42
PROVIDERS: Visit Provider Internal Medicine
DX: R39.9 Unspecified symptoms and signs involving the genitourinary system (principal)
CPT/HCPCS: 81001; 81003; 87086; 87088; 87186

== ENCOUNTER 2022-10-24 20:08 | Outpatient (REF) | payer MEDICARE, SELFPAY ==
[2022-10-24 20:18] LABS: Appearance Urine Clear; Color Urine Yellow; Glucose Urine UA Negative (Negative); Leukocyte Esterase Urine Trace (Negative); Nitrite Urine Negative (Negative); PH 6.5 (5.0-9.0); Specific Gravity - Urine 1.015 (1.005-1.025); UMIC TRIGGER UA YES; Urine Blood Negative (Negative); Urine Ketones Negative (Negative); Urine Protein Negative (Neg-Trace)
[2022-10-24 20:27] LABS: Bacteria Urine Trace (None Seen); Hyaline Casts Urine 0-2 /LPF (0-2); RBC Urine 0-2 /HPF (0-2)
== END 2022-10-24 20:09 | disposition home or self-care (01) ==
LOC: HO.LNP 20:08
PROVIDERS: Visit Provider Internal Medicine
DX: R32 Unspecified urinary incontinence (principal)
CPT/HCPCS: 81001

== ENCOUNTER 2022-11-30 09:39 | Outpatient (AMB) | payer MEDICARE, SELFPAY ==
[2022-11-30 09:57] VITALS: BP 132/68; PULSE 90; O2SAT 98; BMI 29.1
--- NOTE | 2022-11-30 09:57 | MHC.PC.OV ---
Vital Signs 11/30/22 09:57 Height 5 ft Weight 149 lb BMI 29.1 BP 132/68 Blood Pressure Location Lt brachial Position Sitting Pulse 90 Pulse Source Pulse Oximeter Pulse Oximetry (%) 98 Oxygen Delivery Method Room Air Intake Visit Reasons: Left foot Pain/ Ongoing swelling Intake Note: Pt is here for ongoing B/L swelling on legs with left foot pain over a week. It Application Administrator Required: No Accompanied by: Son-Holland Allergies hydrochlorothiazide Allergy (Unknown, Verified 11/30/22 10:01) Electrolyte abnormality oxycodone [OXYCODONE] Allergy (Unknown, Verified 11/30/22 10:01) VOMITTING,CONFUSION Tobacco use date assessed: 06/09/22 Fall risk assessment: No Falls in past year Last assessed Fall Risk: 11/30/22 Dental Screening Dental Screen Date: 11/30/22 Did you have a dental visit in the last 12 months?: No Did you have a dental problem in the last 6 months where you did not have access to dental care?: No Was dental information given to patient?: Patient has dentist HPI HPI Comments History of Present Illness Details 86-year-old overweight female with hypertension GERD gout seizure disorder hypothyroidism hypercholesterolemia lumbar degenerative disc disease and generalized anxiety disorder. Patient of last seen in August, patient presents today for left foot pain top left foot and ankle with leg swelling x1 week. Patient tried compression stocking but it caused pain. On examination revealed patient has left leg swelling from knee down, erythema, warmth and calf pain on palpation. Stat venous Doppler ordered to rule out DVT. Patient states they 1/2 her amlodipine tablet on 11/10/22 111/67, however he blood pressures became elevated and so she restarted back on her full tablet 5 mg daily. Patient reports dysuria, frequency. Denies fevers, chills, Denies flank pain. Patient reports unable to give urine sample at this time. Urinalysis with reflex culture ordered to evaluate for UTI. [facility] Medical History Adult general medical exam Anxiety Burning with urination Buttock pain Cholelithiasis COVID-19 virus infection CVA (cerebral vascular accident) Dog bite of right arm Facial lesion GERD (gastroesophageal reflux disease) Gout Hip osteoarthritis Hypercholesterolemia Hypertension Hypothyroid Impacted cerumen of both ears Obesity (BMI 30-39.9) Overweight (BMI 25.0-29.9) Pneumonia Psoriatic arthritis Reactive airways dysfunction syndrome Screening for diabetes mellitus Seizure disorder Status post fall T12 vertebral fracture Upper respiratory infection Vitamin D deficiency Surgical History History of cataract surgery History of colonoscopy History of knee replacement procedure of right knee History of left knee replacement History of Mohs surgery for squamous cell carcinoma of skin Family History Father No problems noted. Mother Acute CVA (cerebrovascular accident) Diabetes Brother Cancer Daughter History of nephrectomy Son Heart disease Social History Housing: House Alcohol intake: never Patient Tobacco Use Status: Never used Tobacco e-Cigarette/Vaping Use: Never Used Second Hand Smoke Exposure: No service: No Current occupational status: retired Cognitive needs: No Hearing needs: Yes (hearing aides) Vision needs: No Questionnaire Thrive Questionnaire Date Thrive assessed: 09/15/22 HAZEL-7 AMB Questionnaire HAZEL-7 Date HAZEL - 7 assessed: 09/15/22 Source: Developed by Drs. Satish Summers, Radha Honeycutt, Tani Gonzales and colleagues, with an educational milton from [employer]. Review of Systems Const Denies chills, Denies fatigue, Denies fever(s) and Denies poor appetite Eyes Denies no additional complaints ENT Reports Normal hearing present Card Denies chest pain, Denies syncope, Denies rapid heart rate and Denies dyspnea Resp Denies cough and Denies dyspnea GI Denies change in stool character, Denies constipation, Denies diarrhea, Denies nausea and Denies vomiting Denies urinary frequency, Denies dysuria and Denies urinary urgency Neuro Reports Normal hearing present, Denies confusion and Denies syncope Psych Denies confusion Endo Denies fatigue Physical exam (Primary Care) Vital Signs: Last Vital Signs Pulse 90 11/30/22 09:57 BP 132/68 11/30/22 09:57 Pulse Ox 98 11/30/22 09:57 Oxygen Delivery Method Room Air 11/30/22 09:57 BMI result Body Mass Index 29.1 Tobacco/Smoking Status: Tobacco use Status Tobacco use date assessed 06/09/22 11/30/22 10:03 Patient Tobacco Use Status Never used Tobacco 11/30/22 10:03 e-Cigarette/Vaping Use Never Used 11/30/22 10:03 Thrive Assessment: Date of Thrive Assessment Date Thrive assessed 09/15/22 11/30/22 10:03 Const General: No confusion Orientation/consciousness: No confusion HENMT Head: Yes normocephalic and Yes atraumatic Eyes Conjunctivae: conjunctivae normal Chest Chest palpation & inspection: normal inspection of the chest Resp Effort & Inspection: normal respiratory effort Auscultation: clear to auscultation bilaterally, no crackles, no rhonchi and no wheezes Cardio Rate: regular rate Rhythm: regular rhythm Heart sounds: S1 normal heart sound present and S2 normal heart sound present Peripheral pulses: dorsalis pedis present GI Inspection: Yes normal to inspection Neuro General: No confusion Cranial nerves: Yes Normal hearing present Extrem General: Yes edema (Left leg ) Right lower extremity: normal to inspection and full ROM Left lower extremity: normal capillary refill and lower leg Details: erythema, tenderness Location: of the posterior calf, non-pitting edema (Left calf down to foot) Details: 2+ and warmth Assessment and Plan Assessment & Plan (1) Dysuria: Code(s): R30.0 - Dysuria Plan: Urinalysis order with reflex culture as patient was unable to give sample at exam today. (2) Left leg DVT: Code(s): I82.402 - Acute embolism and thrombosis of unspecified deep veins of left lower extremity Plan: Given patient is experiencing unilateral leg swelling from knee down with, calf tenderness and pain, erythema and warmth stat leg venous Doppler ordered to evaluate for DVT. Plan Keep scheduled follow up in 1 month or follow up sooner if needed. Orders: Orders UA CC w/rflx Micro + Cult Today R30.0 - Dysuria US venous duplex LE LT Today I82.402 - Acute embolism and thrombosis of unspecified deep veins of left lower extremity Coding Level of Care Code Est Pt Level 3 (91921) Diagnoses Dysuria R30.0 Left leg DVT I82.402
== END 2022-11-30 10:19 | disposition home or self-care (01) ==
PROVIDERS: PCP Internal Medicine; Visit Provider Nurse Practitioner Family
DX: R30.0 Dysuria (principal); I82.402 Acute embolism and thrombosis of unspecified deep veins of left lower extremity
CPT/HCPCS: 99213

== ENCOUNTER 2022-11-30 10:31 | Outpatient (REF) | payer MEDICARE, SELFPAY ==
--- NOTE | ~2022-11-30 | US_ITS ---
EXAMINATION: US VENOUS ULTRASOUND WITH DOPPLER LOWER EXTREMITY, LEFT CLINICAL INFORMATION: Left leg swelling and skin changes. COMPARISON: None available. TECHNIQUE: Ultrasound of the deep veins is performed from the hip to the calf with compression sonography and color and pulse Doppler assessment. Spectral analysis with color-flow imaging is performed. FINDINGS: There is normal venous compression and respiratory variation and augmented flow. The visualized common femoral vein, superficial femoral vein, profunda femoral vein, popliteal vein, and the trifurcation region shows no evidence of deep venous thrombosis. A left popliteal cyst measures 1.6 x 1.0 x 1.5 cm. Color Doppler showed no abnormal vascular flow. Mild subcutaneous edema seen in the left calf. US/US venous duplex LE LT IMPRESSION: 1. No evidence for deep venous thrombosis in the visualized veins of the left lower extremity. 2. Small left popliteal cyst. 3. Mild subcutaneous edema in the left calf.
== END 2022-11-30 10:32 | disposition home or self-care (01) ==
LOC: HO.US 10:31
PROVIDERS: PCP Internal Medicine; Visit Provider Nurse Practitioner Family
DX: I82.402 Acute embolism and thrombosis of unspecified deep veins of left lower extremity (principal)
CPT/HCPCS: 93971

== ENCOUNTER 2022-12-05 14:14 | Outpatient (REF) | payer MEDICARE, SELFPAY ==
[2022-12-05 14:24] LABS: Appearance Urine Clear; Color Urine Yellow; Glucose Urine UA Negative (Negative); Leukocyte Esterase Urine Moderate (2+) (Negative); Nitrite Urine Negative (Negative); Specific Gravity - Urine 1.015 (1.005-1.025); UMIC TRIGGER UACC YES; Urine Blood Negative (Negative); Urine Ketones Negative (Negative); Urine Protein Negative (Neg-Trace)
[2022-12-05 14:26] LABS: Bacteria Urine None Seen (None Seen); Hyaline Casts Urine 0-2 /LPF (0-2); RBC Urine 0-2 /HPF (0-2); Squamous Epithelial Cell Urine 0-2 /HPF (0-2); UACC Culture Trigger YES; WBC Urine >50 /HPF (0-5)
== END 2022-12-05 14:15 | disposition home or self-care (01) ==
LOC: HO.LNP 14:14
PROVIDERS: Visit Provider Nurse Practitioner Family
DX: R30.0 Dysuria (principal)
CPT/HCPCS: 81001; 87086

== ENCOUNTER 2023-01-08 09:48 | Outpatient (AMB) | payer MEDICARE, SELFPAY ==
[2023-01-08 09:50] VITALS: BP 138/80; PULSE 70; O2SAT 98; BMI 28.7
--- NOTE | 2023-01-08 09:50 | MHC.PC.OV ---
Vital Signs 01/08/23 09:50 Height 5 ft Weight 147 lb BMI 28.7 BP 138/80 Blood Pressure Location Lt brachial Position Sitting Pulse 70 Pulse Source Pulse Oximeter Pulse Oximetry (%) 98 Oxygen Delivery Method Room Air Intake Visit Reasons: 3 months f/u Intake Note: Left leg swelling and pain, foot painful. Diarrhea. Allergies hydrochlorothiazide Allergy (Unknown, Verified 01/08/23 09:50) Electrolyte abnormality oxycodone [OXYCODONE] Allergy (Unknown, Verified 01/08/23 09:50) VOMITTING,CONFUSION amlodipine Adverse Reaction (Intermediate, Unverified 01/08/23 10:15) leg swelling Medication List - Last Reconciled 01/08/23 by Marie Villanueva MD aspirin (Adult Aspirin Regimen) 81 mg PO DAILY divalproex ; 1 Tab in the AM, 3 Tabs in the PM levothyroxine 88 mcg PO DAILY 90 days lidocaine 5% (Lidoderm) 1 patch topical DAILY lisinopril 5 mg PO DAILY loratadine 10 mg PO DAILY lorazepam 0.5 mg (1/2 x 1 mg) PO DAILY PRN 90 days magnesium oxide 400 mg PO DAILY meloxicam 15 mg PO DAILY mirabegron ER (Myrbetriq) 25 mg PO DAILY omeprazole 20 mg PO BID sennosides-docusate sodium 8.6-50 mg (Senna Plus) 2 tab-caps (2 x 8.6-50 mg) PO BEDTIME tizanidine 4 mg PO BEDTIME PRN 7 days tramadol 50 mg PO BID PRN Tobacco use date assessed: 06/09/22 Fall risk assessment: No Falls in past year Last assessed Fall Risk: 01/08/23 Dental Screening Dental Screen Date: 01/08/23 Did you have a dental visit in the last 12 months?: No Did you have a dental problem in the last 6 months where you did not have access to dental care?: No Was dental information given to patient?: No HPI 3 months f/u HPI Details 87-year-old overweight female with hypertension GERD generalized anxiety disorder hypothyroidism hypercholesterolemia lumbar degenerative disc disease coming in for follow-up. Patient was last seen in 11/30/2022 and concern about left leg DVT. Results showed negative DVT having small left foot little cyst was did mild edema of the left calf. Continues to have some pain on the left leg with some hardening of the skin. Patient is on amlodipine and believe that disc is the 1 causing some swelling of the leg. Will DC amlodipine and controlled blood pressure with different medication. Patient also complains of cough and was given some Advair which is not helping and looking at the throat looks like there are some postnasal drip and so patient is placed on allergy medication like Claritin. Patient also complains of intermittent diarrhea and discussed that this is more diet related. Family did mention patient eats too much honey buns. [facility] Medical History (Updated 01/08/23 @ 10:05 by Marie Villanueva MD) Left leg DVT Upper respiratory infection COVID-19 virus infection Burning with urination Buttock pain Status post fall Dog bite of right arm Adult general medical exam Screening for diabetes mellitus Impacted cerumen of both ears Facial lesion Overweight (BMI 25.0-29.9) Hip osteoarthritis T12 vertebral fracture Reactive airways dysfunction syndrome Pneumonia Cholelithiasis CVA (cerebral vascular accident) Obesity (BMI 30-39.9) Hypercholesterolemia Vitamin D deficiency Hypothyroid Seizure disorder Anxiety Gout GERD (gastroesophageal reflux disease) Psoriatic arthritis Hypertension Surgical History History of Mohs surgery for squamous cell carcinoma of skin History of cataract surgery History of colonoscopy History of knee replacement procedure of right knee History of left knee replacement Family History Father No problems noted. Mother Acute CVA (cerebrovascular accident) Diabetes Brother Cancer Daughter History of nephrectomy Son Heart disease Social History Housing: House Alcohol intake: never Patient Tobacco Use Status: Never used Tobacco e-Cigarette/Vaping Use: Never Used Second Hand Smoke Exposure: No service: No Current occupational status: retired Cognitive needs: No Hearing needs: Yes (hearing aides) Vision needs: No Questionnaire PHQ-9 Over the last 2 weeks, how often have you been bothered by any of the following problems? 1. Little interest or pleasure in doing things: more than half the days 2. Feeling down, depressed, or hopeless: more than half the days 3. Trouble falling or staying asleep, or sleeping too much: several days 4. Feeling tired or having little energy: several days 5. Poor appetite or overeating: not at all 6. Feeling bad about yourself - or that you are a failure or have let yourself or your family down: not at all 7. Trouble concentrating on things, such as reading the newspaper or watching television: not at all 8. Moving or speaking so slowly that other people could have noticed. Or the opposite - being so fidgety or restless that you have been moving around a lot more than usual: not at all 9. Thoughts that you would be better off or of hurting yourself in some way: not at all Total score: 6 Depression Screening Interpretation: Positive Depression Screening Done: Yes Source: Developed by Drs. Satish Summers, Radha Honeycutt, Tani Gonzales and colleagues, with an educational milton from [employer]. Thrive Questionnaire Date Thrive assessed: 09/15/22 AUDIT C Alcohol Use Questionnaire (AUDIT-C) 1. How often do you have a drink containing alcohol?: Never 3. How often do you have six or more drinks on one occasion?: Never Total Score: 0 Score Reviewed/Action Taken: No HAZEL-7 AMB Questionnaire HAZEL-7 Date HAZEL - 7 assessed: 09/15/22 Source: Developed by Drs. Satish Summers, Radha Honeycutt, Tani Gonzales and colleagues, with an educational milton from [employer]. Physical exam (Primary Care) Vital Signs: Last Vital Signs Pulse 70 01/08/23 09:50 BP 138/80 01/08/23 09:50 Pulse Ox 98 01/08/23 09:50 Oxygen Delivery Method Room Air 01/08/23 09:50 BMI result Body Mass Index 28.7 Tobacco/Smoking Status: Tobacco use Status Tobacco use date assessed 06/09/22 01/08/23 10:00 Patient Tobacco Use Status Never used Tobacco 01/08/23 10:00 e-Cigarette/Vaping Use Never Used 01/08/23 10:00 PHQ-9: PHQ-9 Score PHQ-9: Total score 6 01/08/23 10:00 Depression Screening Interpretation: Positive Thrive Assessment: Date of Thrive Assessment Date Thrive assessed 09/15/22 01/08/23 10:00 Const General: alert; No acute distress Eyes Conjunctivae: conjunctivae normal Resp Auscultation: clear to auscultation bilaterally Cardio Rate: regular rate Rhythm: regular rhythm GI Inspection: Yes normal to inspection Extrem Other: Right leg normal, left leg dry skin with hardening of the skin left calf with 2+ swelling General: Yes edema Office Procedures Flu Questionnaire Does the patient have a severe egg allergy?: No Does the patient have severe life threatening allergies?: No Does the patient have a fever or illness today?: No Has the patient ever had Guillain-[place] Syndrome?: No Has the patient ever had any past reaction to a flu shot?: No Immunizations flu vacc [id number] 6mos up(PF) 60 mcg(15 mcgx4)/0.5 mL IM syringe Performing Provider: Marie Villanueva MD [facility] Administered by: Roxann Zhong CMA on 01/08/23 10:01 Dose Route Admin Location Dispensed Lot Number Expiration Date 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 Decrease salt intake and exercise patient takes amlodipine 5 mg once a day but with the leg swelling will discontinue this and start on lisinopril (2) GERD (gastroesophageal reflux disease): Comment: EGD Dr. Mireles April 2018 erosive esophagitis Code(s): K21.9 - Gastro-esophageal reflux disease without esophagitis Qualifiers: Esophagitis presence: without esophagitis Qualified Code(s): K21.9 - Gastro-esophageal reflux disease without esophagitis Plan: Avoid the foods that causes that usually spicy foods, tomato products, juices, coffee, soda and foods that your sensitive to. After eating do not lie down, allow 3-4 hours before in lie down. And keep the head of bed above 30 degrees to avoid the acid from going up. (3) Hypothyroid: Code(s): E03.9 - Hypothyroidism, unspecified Qualifiers: Hypothyroidism type: acquired Qualified Code(s): E03.9 - Hypothyroidism, unspecified Plan: Continue with thyroid medication May 2022 last blood work (4) Hypercholesterolemia: Code(s): E78.00 - Pure hypercholesterolemia, unspecified Plan: Avoid fried foods, chicken skin, eggs, butter margarine, pastries and meat. Be it pork or beef they have a lot of cholesterol LDL goal of less than 130 and triglyceride of less than 150 (5) Overweight (BMI 25.0-29.9): Code(s): E66.3 - Overweight Plan: Diet and exercise (6) Synovial cyst of popliteal space [Wilburn], left knee: Code(s): M71.22 - Synovial cyst of popliteal space [Wilburn], left knee Plan: Reassurance (7) Chronic cough: Comment: Chronic cough most likely due to upper airway allergy, Presence of 2 dogs and 2 Guinea pigs in the house may be playing some role, which she is not going to get rid of. Cough may also be expression of asthma variant syndrome. Code(s): R05 - Cough Plan: Advised to start on Claritin 10 mg once a Orders: Orders Influenza [id number] Immunization Today Z23 - Encounter for immunization Medications: New loratadine 10 mg PO DAILY 30 tabs 5RF R05 - Cough lisinopril 5 mg PO DAILY 30 tabs 4RF I10 - Essential (primary) hypertension Discontinued amlodipine Discontinued Reason: Doctor's Order 5 mg PO DAILY 90 tabs 2RF I10 - Essential (primary) hypertension Coding Level of Care Code Est Pt Level 4 (58513) Diagnoses Essential hypertension I10 Hypertension type: essential hypertension Gastroesophageal reflux disease without esophagitis K21.9 Esophagitis presence: without esophagitis Acquired hypothyroidism E03.9 Hypothyroidism type: acquired Hypercholesterolemia E78.00 Overweight (BMI 25.0-29.9) E66.3 Synovial cyst of popliteal space [Wilburn], left knee M71.22 Chronic cough R05
== END 2023-01-08 10:25 | disposition home or self-care (01) ==
PROVIDERS: PCP Internal Medicine; Visit Provider Internal Medicine
DX: I10 Essential (primary) hypertension (principal); K21.9 Gastro-esophageal reflux disease without esophagitis; E03.9 Hypothyroidism, unspecified; E78.00 Pure hypercholesterolemia, unspecified; E66.3 Overweight; M71.22 Synovial cyst of popliteal space [Baker], left knee; R05.9 Cough, unspecified; Z23 Encounter for immunization
CPT/HCPCS: 90471; 90686; 99214

== ENCOUNTER 2023-01-19 14:26 | Outpatient (AMB) | payer MEDICARE, SELFPAY ==
[2023-01-19 14:28] VITALS: BP 122/72; PULSE 88; O2SAT 95; BMI 28.9
--- NOTE | 2023-01-19 14:28 | AM.OFFVISMDC ---
Intake Vital Signs 01/19/23 14:28 Height 5 ft Weight 148 lb 0.6 oz BMI 28.9 BP 122/72 Blood Pressure Location Lt brachial Position Sitting Pulse 88 Pulse Source Pulse Oximeter Pulse Oximetry (%) 95 Oxygen Delivery Method Room Air Intake Visit Reasons: BOB G0439 Intake Note: Patient is here for an Annual Wellness Visit. Allergies hydrochlorothiazide Allergy (Unknown, Verified 01/19/23 14:48) Electrolyte abnormality oxycodone [OXYCODONE] Allergy (Unknown, Verified 01/19/23 14:48) VOMITTING,CONFUSION amlodipine Adverse Reaction (Intermediate, Verified 01/19/23 14:48) leg swelling Medication List - Last Reconciled 01/19/23 by OREN Zazueta aspirin (Adult Aspirin Regimen) 81 mg PO DAILY divalproex ; 1 Tab in the AM, 3 Tabs in the PM levothyroxine 88 mcg PO DAILY 90 days lidocaine 5% (Lidoderm) 1 patch topical DAILY lisinopril 5 mg PO DAILY loratadine 10 mg PO DAILY lorazepam 0.5 mg (1/2 x 1 mg) PO DAILY PRN 90 days magnesium oxide 400 mg PO DAILY meloxicam 15 mg PO DAILY mirabegron ER (Myrbetriq) 25 mg PO DAILY omeprazole 20 mg PO BID sennosides-docusate sodium 8.6-50 mg (Senna Plus) 2 tab-caps (2 x 8.6-50 mg) PO BEDTIME tizanidine 4 mg PO BEDTIME PRN 7 days tramadol 50 mg PO BID PRN Fall Risk Assessment Fall risk assessment: No Falls in past year Date Fall Risk Assessed: 01/19/23 HPI [facility] G0439 HPI Details Patient is an 87-year-old female who presents today for subsequent wellness visit. Patient of Dr. Villanueva. Today we discussed patient's need for bone density screening, patient has declined. We also discussed patient's need for diabetes screening, patient has blood work orders and she was encouraged to complete her blood work. [place] of care was reviewed with the patient and she was provided with a screening schedule. End of life planning was discussed with the patient and she was provided with healthcare proxy and MOLST form. Patient is accompanied by her family. In addition, patient reports that couple weeks ago she was started on lisinopril for blood pressure and says she started with more dry cough. She also reports burning with urination for the past 1 week, unable to provide urine in the office, will order urinalysis. No blood in urine. No fever or chills. PFSH Medical History Left leg DVT Upper respiratory infection COVID-19 virus infection Burning with urination Buttock pain Status post fall Dog bite of right arm Adult general medical exam Screening for diabetes mellitus Impacted cerumen of both ears Facial lesion Overweight (BMI 25.0-29.9) Hip osteoarthritis T12 vertebral fracture Reactive airways dysfunction syndrome Pneumonia Cholelithiasis CVA (cerebral vascular accident) Obesity (BMI 30-39.9) Hypercholesterolemia Vitamin D deficiency Hypothyroid Seizure disorder Anxiety Gout GERD (gastroesophageal reflux disease) Psoriatic arthritis Hypertension Surgical History History of Mohs surgery for squamous cell carcinoma of skin History of cataract surgery History of colonoscopy History of knee replacement procedure of right knee History of left knee replacement Family History Father No problems noted. Mother Acute CVA (cerebrovascular accident) Diabetes Brother Cancer Daughter History of nephrectomy Son Heart disease Social History Household Members: Children Household Members Other:: Daughter (Katie) and son-in-law Housing: House Do you presently have visiting nurse or other home services: No Alcohol intake: never Patient Tobacco Use Status: Never used Tobacco Smoked in Last 30 Days: No e-Cigarette/Vaping Use: Never Used Second Hand Smoke Exposure: No Use of substances other than those prescribed or required for medical reasons: No Have you been hit, kicked, punched, or otherwise hurt by someone within the past year? If so, by whom?: No Do you feel safe in your current relationship?: Yes Is there a partner from a previous relationship who is making you feel unsafe now?: No Are you made to feel afraid or neglected: No Zoroastrianism Healthcare Practices: Jehovah'S Witness Advance Directives: No Advance Directives Information Provided: Yes Do you have thoughts of harming others: None Do you have a plan to hurt others: No Plan Recently lost weight without trying: No How much weight loss: Not applicable Eating poorly because of decreased appetite: No Nutrition screen score: 0 Nutrition Risks: No Nutritional Risk Patient : No : No Poor oral hygiene: No service: No Current occupational status: retired Cognitive needs: No Hearing needs: Yes (hearing aides) Vision needs: No Questionnaire Medicare Wellness Checkup What is your age?: 80 or older What gender do you identify with?: female During the past 4 weeks, how much have you been bothered by emotional problems such as feeling anxious, depressed, irritable, sad or downhearted, and blue?: slightly During the past 4 weeks, has your physical & emotional health limited your social activities with family, friends, neighbors, or groups?: slightly During the past 4 weeks, how much bodily pain have you generally had?: mild pain During the past 4 weeks, was someone available to help you if you needed & wanted help?: yes, as much as I wanted During the past 4 weeks, what was the hardest physical activity you could do for at least 2 minutes?: moderate Can you get to places out of walking distance without help? (For eg., can you travel alone on buses, taxis or drive your car?): No Can you go shopping for groceries or clothes without someone's help?: No Can you prepare your own meals?: Yes Can you do your housework without help?: No Because of any health problems, do you need the help of another person with your personal care needs such as eating, bathing, dressing or getting around the house?: No Can you handle your own money without help?: No During the past 4 weeks, how would you rate your health in general?: good During the past 4 weeks how have things been going for you?: pretty well Are you having difficulties driving your car?: not applicable, I don't use a car Do you always fasten your seat belt when you are in a car?: yes, usually During past 4 weeks, have you been bothered by the following: never: Falling or dizzy when standing up, Sexual problems? and Trouble eating well?, seldom: Problems using the telephone? and sometimes: Teeth or denture problems? and Tiredness or fatigue? Have you fallen 2 or more times in the past year?: No Are you afraid of falling?: Yes Are you a smoker?: no During the past 4 weeks, how many drinks of wine, beer, or other alcoholic beverages did you have?: no alcohol at all Do you exercise for about 20 minutes 3 or more times a week?: no, I usually do not exercise this much Have you been given information to help with the following?: no: Hazards in your house that might hurt you? and no: Keeping track of your medications? How often do you have trouble taking medicines the way you have been told to take them?: I always take medicine as prescribed How confident are you that you can control & manage most of your health problems?: somewhat confident What is your race?: White Mini Mental State Exam (MMSE) Orientation What is the (year) (season) (date) (day) (month)?: year, season, date, day and month Score Score: 5 Activity of Daily Living Bathing - sponge bath, tub bath or shower: receives no assistance (gets in/out by self, if usual bathing means Dressing - getting clothes from closets & drawers, including inner/outer garments & fasteners.: gets clothes & gets completely dressed without help Toileting - going to the 'toilet room' for urine/bowel elimination & cleaning self/arranging clothes: goes to toilet room, cleans self, arranges clothes without help Transfer: moves in & out of bed and chair without help (may use support object) Continence: controls urination/bowel movements completely by self Feeding: feeds self without help Total Score: 0 Information obtained from: patient Using telephone: independent Traveling: dependent Shopping: needs assistance Preparing meals: needs assistance Housework: needs assistance Taking medicine: needs assistance Managing money: needs assistance PHQ-9 Over the last 2 weeks, how often have you been bothered by any of the following problems? 1. Little interest or pleasure in doing things: not at all 2. Feeling down, depressed, or hopeless: not at all 3. Trouble falling or staying asleep, or sleeping too much: not at all 4. Feeling tired or having little energy: not at all 5. Poor appetite or overeating: not at all 6. Feeling bad about yourself - or that you are a failure or have let yourself or your family down: not at all 7. Trouble concentrating on things, such as reading the newspaper or watching television: not at all 8. Moving or speaking so slowly that other people could have noticed. Or the opposite - being so fidgety or restless that you have been moving around a lot more than usual: not at all 9. Thoughts that you would be better off or of hurting yourself in some way: not at all Total score: 0 Depression Screening Interpretation: Negative Depression Screening Done: Yes 68553 - PHQ-9 Billing: Yes Source: Developed by Drs. Satish Summers, Radha Honeycutt, Tani Gonzales and colleagues, with an educational milton from [employer]. HAZEL-7 AMB Questionnaire HAZEL-7 Date HAZEL - 7 assessed: 09/15/22 Source: Developed by Drs. Satish Summers, Radha Honeycutt, Tani Gonzales and colleagues, with an educational milton from [employer]. AUDIT C Alcohol Use Questionnaire (AUDIT-C) 1. How often do you have a drink containing alcohol?: Never 3. How often do you have six or more drinks on one occasion?: Never Total Score: 0 Score Reviewed/Action Taken: No Thrive Questionnaire Date Thrive assessed: 09/15/22 Review of Systems Const Reports no additional complaints Card Reports no additional complaints Resp Reports as per HPI and Reports cough GI Reports no additional complaints Reports as per HPI Physical Exam Vital Signs: Last Vital Signs Pulse 88 01/19/23 14:28 BP 122/72 01/19/23 14:28 Pulse Ox 95 01/19/23 14:28 Oxygen Delivery Method Room Air 01/19/23 14:28 BMI result Body Mass Index 28.9 Const General: cooperative and no acute distress Orientation/consciousness: patient oriented x3 HEENT Other: Whisper test: fail Head: Yes normocephalic and Yes atraumatic Eyes General: appearance normal, both eyes and all related structures Neck Neck: Yes normal visual inspection, Yes full ROM and Yes no lymphadenopathy Resp Effort & Inspection: normal respiratory effort Auscultation: clear to auscultation bilaterally Cardio Rate: regular rate Rhythm: regular rhythm Heart sounds: S1 normal heart sound present and S2 normal heart sound present GI Auscultation: normal bowel sounds Neuro Other: Balance: Normal - ambulates with rolling walker Get up and walk: unable to Romberg: negative Tandem gait: unable to General: patient oriented x3 Extrem General: Yes full ROM Assessment & Plan Assessment & Plan (1) Adult general medical exam: Code(s): Z00.00 - Encounter for general adult medical examination without abnormal findings (2) Overweight (BMI 25.0-29.9): Code(s): E66.3 - Overweight Plan: Healthy food choices and exercise as tolerated. (3) Reactive airways dysfunction syndrome: Comment: As noted above her cough may be due to asthma variant syndrome/reactive airways. Code(s): J68.3 - Other acute and subacute respiratory conditions due to chemicals, gases, fumes and vapors Plan: Stable Continue current treatment (4) Hypercholesterolemia: Code(s): E78.00 - Pure hypercholesterolemia, unspecified Plan: Low-cholesterol diet. (5) Hypothyroid: Code(s): E03.9 - Hypothyroidism, unspecified Qualifiers: Hypothyroidism type: acquired Qualified Code(s): E03.9 - Hypothyroidism, unspecified Plan: Levothyroxine 88 mcg daily (6) Seizure disorder: Comment: 2012 partial complex Code(s): G40.909 - Epilepsy, unspecified, not intractable, without status epilepticus Plan: Continue divalproex (7) Anxiety: Code(s): F41.9 - Anxiety disorder, unspecified Plan: Stable Continue current treatment (8) GERD (gastroesophageal reflux disease): Comment: EGD Dr. Mireles April 2018 erosive esophagitis Code(s): K21.9 - Gastro-esophageal reflux disease without esophagitis Qualifiers: Esophagitis presence: without esophagitis Qualified Code(s): K21.9 - Gastro-esophageal reflux disease without esophagitis Plan: Continue current treatment. Encouraged to avoid GERD trigger foods. (9) Hypertension: Code(s): I10 - Essential (primary) hypertension Qualifiers: Hypertension type: essential hypertension Qualified Code(s): I10 - Essential (primary) hypertension Plan: Stop lisinopril due to cough Start losartan 25 mg daily Continue amlodipine 5 mg daily Goal BP equal or less than 140/90 Low-sodium diet (10) Dysuria: Code(s): R30.0 - Dysuria Plan: Urinalysis ordered, patient unable to provide urine in the office Plan Keep appointment with PCP as scheduled or follow-up sooner as needed Orders: Orders UA CC w/rflx Micro + Cult 01/20/23 R30.0 - Dysuria Medications: New losartan 25 mg PO DAILY 30 tabs 3RF I10 - Essential (primary) hypertension Discontinued lisinopril Discontinued Reason: Doctor's Order 5 mg PO DAILY 30 tabs 4RF I10 - Essential (primary) hypertension Quality Reporting (2019) Fall Risk Screening ([facility] 139) Last assessed Fall Risk: 01/19/23 Fall risk assessment: No Falls in past year Depression/Bipolar (159/160/161/177) PHQ-9: Total score: 0 Coding Level of Care Code Medicare Subsequent (G0439) Est Pt Level 3 (90182) Diagnoses Adult general medical exam Z00.00 Overweight (BMI 25.0-29.9) E66.3 Reactive airways dysfunction syndrome J68.3 Hypercholesterolemia E78.00 Acquired hypothyroidism E03.9 Hypothyroidism type: acquired Seizure disorder G40.909 Anxiety F41.9 Gastroesophageal reflux disease without esophagitis K21.9 Esophagitis presence: without esophagitis Essential hypertension I10 Hypertension type: essential hypertension Dysuria R30.0 CPT Codes Advance Care Planning - Time spent: 1-15 minutes, not on file ([id number]) Advance Care Planning Date of discussion: 01/19/23 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
== END 2023-01-19 15:08 | disposition home or self-care (01) ==
PROVIDERS: PCP Internal Medicine; Visit Provider Nurse Practitioner Family
DX: Z00.00 Encounter for general adult medical examination without abnormal findings (principal); E66.3 Overweight; J68.3 Other acute and subacute respiratory conditions due to chemicals, gases, fumes and vapors; G40.909 Epilepsy, unspecified, not intractable, without status epilepticus; E78.00 Pure hypercholesterolemia, unspecified; E03.9 Hypothyroidism, unspecified; F41.9 Anxiety disorder, unspecified; K21.9 Gastro-esophageal reflux disease without esophagitis; I10 Essential (primary) hypertension; R30.0 Dysuria
CPT/HCPCS: 1124F; G0439

== ENCOUNTER 2023-01-20 07:35 | Outpatient (REF) | payer MEDICARE, SELFPAY ==
[2023-01-20 08:20] LABS: MANUAL DIFF FLAG NO
[2023-01-20 08:53] LABS: Basophils Absolute Auto 0.1 X10*3/uL (0.0-0.2); Basophils Percent Auto 1.3 % (0-2); Eosinophils Absolute Auto 0.3 X10*3/uL (0.0-0.4); Eosinophils Percent Auto 7.3 % (0-4); Hematocrit 36.3 % (37.0-47.0); Hemoglobin 12.5 g/dl (12.0-16.0); Imm Gran Abs Auto 0.01 X10*3/uL (0.00-0.03); Imm Gran Pct Auto 0.3 % (0.0-0.4); Lymphocytes Absolute Auto 0.8 X10*3/uL (1.2-4.9); Lymphocytes Percent Auto 20.6 % (20-40); Mean Corpuscular HGB Conc 34.4 g/dl (31.0-35.0); Mean Corpuscular Hemoglobin 30.9 pg (27.0-33.0); Mean Corpuscular Volume 89.6 fL (80.0-98.0); Mean Platelet Volume 10.6 fL (9.4-12.3); Monocytes Absolute Auto 0.4 X10*3/uL (0.1-1.2); Monocytes Percent Auto 10.3 % (2-11); Neutrophils Absolute Auto 2.4 x10*3/uL (2.0-8.3); Neutrophils Percent Auto 60.2 % (45-73); Platelet Count 160 X10*3/uL (160-400); Red Blood Count 4.05 X10*6/uL (4.20-5.50); Red Cell Distribution Width 13.1 % (11.0-16.0)
[2023-01-20 09:05] LABS: Appearance Urine Clear; Color Urine Yellow; Glucose Urine UA Negative (Negative); Leukocyte Esterase Urine Moderate (2+) (Negative); Nitrite Urine Negative (Negative); Specific Gravity - Urine <= 1.005 (1.005-1.025); UMIC TRIGGER UACC YES; Urine Blood Negative (Negative); Urine Ketones Negative (Negative); Urine Protein Negative (Neg-Trace)
[2023-01-20 09:10] LABS: Bacteria Urine 4+ (None Seen); Hyaline Casts Urine 0-2 /LPF (0-2); RBC Urine 0-2 /HPF (0-2); Squamous Epithelial Cell Urine 0-2 /HPF (0-2); UACC Culture Trigger YES
[2023-01-20 09:28] LABS: Alanine Aminotransferase 6 U/L (0-31); Albumin Level 3.9 g/dL (3.5-5.0); Alkaline Phosphatase 58 U/L (39-117); Anion Gap 14 (12-20); Aspartate Amino Transferase 11 U/L (5-31); Bilirubin Total 0.5 mg/dL (0.0-1.0); Blood Urea Nitrogen 6 mg/dL (9-16); Calcium 9.3 mg/dL (8.4-10.2); Carbon Dioxide 24 mmol/L (22-29); Chloride 99 mmol/L (96-108); Cholesterol 217 mg/dL (<200); Estimated Glomerular Filt Rate > 60; Glucose Random 87 mg/dL (60-115); HDL Cholesterol 52 mg/dL (>40); LDL Cholesterol Calculated 139 mg/dL (<100); Potassium 3.8 mmol/L (3.3-5.1); Sodium 133 mmol/L (135-145); Total Protein 6.6 g/dL (6.5-8.0); Triglycerides 134 mg/dL (<150)
[2023-01-20 09:49] LABS: Free T4 (Free Thyroxine) 1.17 ng/dL (0.71-1.85); Thyroid Stimulating Hormone 0.45 uIU/mL (0.32-4.0)
[2023-01-20 10:00] LABS: Folate 9.1 ng/mL (> or = 4.0); Vitamin B12 426 pg/mL (200-900)
== END 2023-01-20 07:36 | disposition home or self-care (01) ==
LOC: HO.LAB 07:35
PROVIDERS: Nurse Practitioner Family; PCP Internal Medicine; Visit Provider Internal Medicine
DX: E78.00 Pure hypercholesterolemia, unspecified (principal); R30.0 Dysuria
CPT/HCPCS: 36415; 80053; 80061; 81001; 81003; 82607; 82746; 84439; 84443; 85025; 87086; 87088; 87186

== ENCOUNTER 2023-01-28 22:11 | Inpatient (IN) | payer MEDICARE, SELFPAY ==
--- NOTE | ~2023-01-28 | XR_ITS ---
EXAMINATION: XR HIP, RIGHT CLINICAL INFORMATION: Fall, pain COMPARISON: 05/05/2021 TECHNIQUE: Two views of the right hip. AP pelvis. FINDINGS: Alignment across the hips is anatomic with mild to moderate joint space narrowing bilaterally. No acute fracture identified in the pelvis or right hip. Sacroiliac joints and pubic symphysis appear intact. Vascular calcifications are present. Degenerative changes in the visualized lower lumbar spine. XR/XR hip RT w PEL1V IMPRESSION: No acute findings identified.
--- NOTE | ~2023-01-28 | XR_ITS ---
EXAMINATION: XR BILATERAL HIPS WITH AP PELVIS CLINICAL INFORMATION: Lower back pain COMPARISON: None available. TECHNIQUE: AP view of the pelvis and single views of each hip were obtained. FINDINGS: Femoral heads both well-seated within the respected acetabula. No cortical disruption or trabecular irregularity to suggest acute fracture or dislocation. Degenerative changes in the visualized lower lumbar spine. Extensive vascular calcification. Unremarkable bowel gas pattern XR/XR hips ATUL min 3V IMPRESSION: Degenerative changes but no acute fracture or dislocation.
--- NOTE | ~2023-01-28 | XR_ITS ---
Examination: Lumbar spine and chest x-ray. Clinical indications: Back pain, status post fall. COMPARISON: Lumbar spine 05/10/2020. Chest 03/01/2022. TECHNIQUE: Chest 2 views. Lumbar spine 5 views. FINDINGS: CHEST: The lungs are well-expanded and clear. Heart size and pulmonary vascularity is normal. No gross bony abnormality seen. LUMBAR SPINE: There is normal lumbar lordosis. There is moderate levoscoliosis with loss of disc height virtually at every disc level and moderate spondylosis. The vertebral heights are normal. There is mild lateral subluxation at several disc levels in the mid lumbar spine. There is mild osteopenia. No acute fracture or lytic process seen. The neural foramina appear patent in the upper and mid lumbar levels. The paravertebral soft tissues are normal. XR/XR lumbar spine 2-3V IMPRESSION: 1. Unremarkable chest exam. 2. Moderate levoscoliosis with degenerative disc changes virtually at every disc level with moderate spondylosis. No acute fracture seen. There is mild lateral subluxation of several lumbar vertebrae in the mid lumbar spine.
--- NOTE | ~2023-01-28 | XR_ITS ---
EXAMINATION: XR KNEE, RIGHT CLINICAL INFORMATION: Fall, pain COMPARISON: 12/28/2013 TECHNIQUE: Four views of the right knee. FINDINGS: Total knee arthroplasty components appear well-seated and in anatomic alignment. No acute fracture is seen. Mild heterotopic ossification noted. No significant knee effusion. Extensive vascular calcifications are noted. XR/XR knee RT 4V IMPRESSION: No acute findings identified. Total knee arthroplasty components in anatomic alignment.
--- NOTE | ~2023-01-28 | XR_ITS ---
Examination: Lumbar spine and chest x-ray. Clinical indications: Back pain, status post fall. COMPARISON: Lumbar spine 05/10/2020. Chest 03/01/2022. TECHNIQUE: Chest 2 views. Lumbar spine 5 views. FINDINGS: CHEST: The lungs are well-expanded and clear. Heart size and pulmonary vascularity is normal. No gross bony abnormality seen. LUMBAR SPINE: There is normal lumbar lordosis. There is moderate levoscoliosis with loss of disc height virtually at every disc level and moderate spondylosis. The vertebral heights are normal. There is mild lateral subluxation at several disc levels in the mid lumbar spine. There is mild osteopenia. No acute fracture or lytic process seen. The neural foramina appear patent in the upper and mid lumbar levels. The paravertebral soft tissues are normal. XR/XR chest 2V IMPRESSION: 1. Unremarkable chest exam. 2. Moderate levoscoliosis with degenerative disc changes virtually at every disc level with moderate spondylosis. No acute fracture seen. There is mild lateral subluxation of several lumbar vertebrae in the mid lumbar spine.
--- NOTE | ~2023-01-28 | XR_ITS ---
EXAMINATION: XR HUMERUS, RIGHT CLINICAL INFORMATION: Pain COMPARISON: None available. TECHNIQUE: AP and lateral views of the right humerus. FINDINGS: Bone alignment is normal. No fracture or dislocation. There is arthritis at the right shoulder joint with joint space narrowing and osteophyte formation. There is soft tissue calcification adjacent to the lateral humeral head suggestive of calcific bursitis or tendinitis. The right elbow joint is unremarkable. XR/XR humerus RT IMPRESSION: Arthritis at the right shoulder joint.
--- NOTE | ~2023-01-28 | CT_ITS ---
EXAMINATION: NONCONTRAST HEAD CT NONCONTRAST CERVICAL SPINE CT INDICATION INFORMATION: Head strike COMPARISON: 05/10/2021, 11/19/2018 TECHNIQUE: Separate noncontrast CT examinations of the head and cervical spine were performed. Coronal head CT images and coronal and sagittal cervical spine images were created at the technologist workstation. DLP: 869 mGy-cm DOSE LOWERING TECHNIQUES: This CT examination was performed using dose optimization techniques as appropriate, variously including the following: - Automated exposure control - Adjustment of mA and/or kV according to patient size (this includes techniques or standardized protocols for targeted exams were dose is matched to indication/reason for exam; i.e. extremities or head) - Use of iterative reconstruction technique FINDINGS: Head: Limited evaluation in some regions due to motion artifact. No appreciable acute intracranial hemorrhage or territorial infarction. No abnormal mass-effect or midline shift is seen. [place] to white matter differentiation is well preserved. No extra-axial fluid collections are identified. The ventricles are normal in size. There is moderate periventricular white matter hypoattenuation consistent with chronic small vessel ischemic disease. Mild volume loss is noted. The osseous structures and soft tissues are normal. The mastoid air cells and visualized portions of the paranasal sinuses are well-aerated. Cervical spine: There is grade 1 anterolisthesis of C3 on C4 with severe loss of disc space and degenerative endplate changes, worsened from 11/19/2018. Reversal of the normal cervical lordosis is noted. Redemonstrated disc space narrowing of the lower cervical spine with endplate osteophytes. There is degenerative change at the atlantodens articulation. There is severe left-sided facet arthropathy throughout the cervical spine. No evidence of acute fracture. No prevertebral soft tissue swelling. Visualized portions of the lung apices are unremarkable. The thyroid gland appears diminutive. CT/CT cervical spine wo IV con IMPRESSION: HEAD: Limited evaluation due to motion artifact. No no appreciable acute intracranial findings. CERVICAL SPINE: No acute findings identified. Severe degenerative changes as noted above.
[2023-01-28 22:35] VITALS: BP 176/96; PULSE 78; O2SAT 96; BMI 28.2
[2023-01-28 22:35] LABS: MANUAL DIFF FLAG NO
[2023-01-28 22:38] VITALS: BP 176/74; PULSE 73; RESP 12; O2SAT 96
[2023-01-28 22:38] LABS: Basophils Percent Auto 0.5 % (0-2); Eosinophils Absolute Auto 0.2 X10*3/uL (0.0-0.4); Eosinophils Percent Auto 2.8 % (0-4); Hematocrit 34.6 % (37.0-47.0); Hemoglobin 12.2 g/dl (12.0-16.0); Imm Gran Abs Auto 0.03 X10*3/uL (0.00-0.03); Imm Gran Pct Auto 0.5 % (0.0-0.4); Lymphocytes Absolute Auto 1.2 X10*3/uL (1.2-4.9); Lymphocytes Percent Auto 19.6 % (20-40); Mean Corpuscular HGB Conc 35.3 g/dl (31.0-35.0); Mean Corpuscular Hemoglobin 30.5 pg (27.0-33.0); Mean Corpuscular Volume 86.5 fL (80.0-98.0); Mean Platelet Volume 10.2 fL (9.4-12.3); Monocytes Absolute Auto 0.6 X10*3/uL (0.1-1.2); Monocytes Percent Auto 9.5 % (2-11); Neutrophils Absolute Auto 4.1 x10*3/uL (2.0-8.3); Neutrophils Percent Auto 67.1 % (45-73); Platelet Count 153 X10*3/uL (160-400); Red Cell Distribution Width 12.8 % (11.0-16.0); White Blood Count 6.1 X10*3/uL (4.8-10.8)
--- NOTE | 2023-01-28 22:40 | PC.NURSE ---
Pt arrives from home via EMS post fall. Pt is alert and oriented to self and situation. Reports falling but unsure how she fell. EMS reports daughter at home reports pt recently had medication changes: Lorazapam 1mg, Loratadine 10mg and a sulfa ab for a uti. Ever since pt started these medications pt has been acting confused. 20G IV line place on the left ac. Labs drawn and sent. Pending physician evaluation.
--- NOTE | 2023-01-28 22:42 | ED_ITS ---
HPI - Fall General Chief Complaint: Fall Stated Complaint: FALL W/HEADSTRIKE,+THINNERS,UTI X1WK, CONFUSION Time Seen by Provider: 01/28/23 22:30 Source: patient, family and EMS Mode of arrival: EMS Limitations: no limitations History of Present Illness HPI Narrative: Patient is an 87-year-old female who presents emergency department via EMS for evaluation after a fall. Patient's daughter is at bedside at the time of my evaluation. Patient was attempting to go to bed, upon getting up with use of her walker, daughter states that she was removing her slipper when she subsequently fell backwards striking her head on to the ground without loss of consciousness. Daughter states that she has been confused for the past 2 days, 3 days ago she was started on Bactrim for urinary tract infection as she had been experiencing dysuria. Daughter reports she has had multiple urinary tract infections recently. Daughter states she also has been experiencing intermittent headache, generalized weakness, a few episodes of vomiting. She attributed the symptoms to her infection. Patient is alert and oriented to your report person and place, disoriented to time event. She is also fluids pressing pain to the right of hip and knee after the fall with decreased AROM. Related Data Home Medications Medication Instructions Recorded Confirmed aspirin 81 mg tablet,delayed 81 mg PO DAILY 02/16/20 01/19/23 release (Adult Aspirin Regimen) Previous Rx's Medication Instructions Recorded omeprazole 20 mg capsule,delayed 20 mg PO BID #180 caps 05/16/22 release levothyroxine 88 mcg tablet 88 mcg PO DAILY 90 days #90 tabs 06/09/22 lidocaine 5 % topical patch 1 patch topical DAILY #30 ea 06/09/22 (Lidoderm) magnesium oxide 400 mg PO DAILY #90 caps 09/15/22 mirabegron 25 mg tablet,extended 25 mg PO DAILY #90 tabs 09/15/22 release 24 hr (Myrbetriq) sennosides 8.6 mg-docusate sodium 2 tab-cap (2 x 8.6-50 mg) PO 09/15/22 50 mg capsule (Senna Plus) BEDTIME #60 caps divalproex 125 mg tablet,delayed 125 mg PO .COMPLEX #360 tabs 10/02/22 release lorazepam 1 mg tablet 0.5 mg (1/2 x 1 mg) PO DAILY PRN 10/24/22 anxiety 90 days #45 tabs tizanidine 4 mg tablet 4 mg PO BEDTIME PRN muscle 12/06/22 spasms/leg cramps 7 days #7 tabs tramadol 50 mg tablet 50 mg PO BID PRN pain #14 tabs 12/06/22 meloxicam 15 mg tablet 15 mg PO DAILY #30 tabs 01/02/23 loratadine 10 mg tablet 10 mg PO DAILY #30 tabs 01/08/23 losartan 25 mg tablet 25 mg PO DAILY #30 tabs 01/19/23 sulfamethoxazole 800 1 tab PO BID #14 tabs 01/23/23 mg-trimethoprim 160 mg tablet (Bactrim DS) Allergies Allergy/AdvReac Type Severity Reaction Status Date / Time hydrochlorothiazide Allergy Unknown Electrolyte Verified 01/19/23 14:48 abnormality oxycodone [OXYCODONE] Allergy Unknown VOMITTING,C Verified 01/19/23 14:48 ONFUSION amlodipine AdvReac Intermediate leg Verified 01/19/23 14:48 swelling Review of Systems 2 Review of Systems: Yes all other systems are reviewed and are negative [facility] Past Medical History Source: old records reviewed Medical History Left leg DVT Upper respiratory infection COVID-19 virus infection Burning with urination Buttock pain Status post fall Dog bite of right arm Adult general medical exam Screening for diabetes mellitus Impacted cerumen of both ears Facial lesion Overweight (BMI 25.0-29.9) Hip osteoarthritis T12 vertebral fracture Reactive airways dysfunction syndrome Pneumonia Cholelithiasis CVA (cerebral vascular accident) Obesity (BMI 30-39.9) Hypercholesterolemia Vitamin D deficiency Hypothyroid Seizure disorder Anxiety Gout GERD (gastroesophageal reflux disease) Psoriatic arthritis Hypertension Surgical History History of Mohs surgery for squamous cell carcinoma of skin History of cataract surgery History of colonoscopy History of knee replacement procedure of right knee History of left knee replacement Family History Family History Father No problems noted. Mother Acute CVA (cerebrovascular accident) Diabetes Brother Cancer Daughter History of nephrectomy Son Heart disease Social History Social History Housing: House Alcohol intake: never Patient Tobacco Use Status: Never used Tobacco Smoked in Last 30 Days: No e-Cigarette/Vaping Use: Never Used Second Hand Smoke Exposure: No Use of substances other than those prescribed or required for medical reasons: No Advance Directives: No Advance Directives Information Provided: Yes service: No Current occupational status: retired Cognitive needs: No Hearing needs: Yes (hearing aides) Vision needs: No Physical Exam 2 Vital Signs: Vital Signs: Last Vital Signs Temp 97.8 F 01/29/23 00:44 Pulse 73 01/28/23 22:38 Resp 12 01/28/23 22:38 BP 176/74 H 01/28/23 22:38 Pulse Ox 96 01/28/23 22:38 O2 Del Method Room Air 01/28/23 22:38 BMI result Body Mass Index 28.2 Appearance: Alert.?Oriented to person, place and time. No acute distress.?Normal affect. Head: Normocephalic, atraumatic Eyes: Pupils equal, round and reactive to light.? No SC. No nystagmus. ENT: Pharynx normal.?? Neck: Normal inspection.? Neck supple.??No midline cervical spine tenderness, step-offs, deformities. CVS: Heart sounds normal. Normal heart rate and rhythm.? Pulses normal.?? Respiratory: No respiratory distress.? Lung sounds clear to auscultation bilaterally?? Abdomen: Soft and non-tender. Normoactive bowel sounds. Skin: Skin warm and dry.? Normal skin color.? Extremities: No lower extremity edema.? No calf ttp?decreased AROM to right hip and right knee, tenderness upon palpation. No obvious deformity. 2+ DP/PT pulse bilaterally. Neuro: Moves all extremities spontaneously. Sensation intact bilaterally. No focal neuro deficits. Course Reevaluation(s) Reevaluation #1: CBC is without leukocytosis. Patient noted to have hyponatremia with sodium level of 120, this has been noted to have occurred in the past in 2019, etiology at that time is unclear and daughter is unable to provide history. She has no signs of hypervolemia, when asked she typically drinks about 24 oz of water daily, upon review of her medications she is also on Depakote, concern at this time for hypovolemic verses euvolemic with SIADH secondary to possible Depakote usage. Prior studies appear consistent with SIADH. Will obtain urine studies in addition to serum osmolality for further evaluation and treatment guidance; IV fluids versus fluid restriction. I discussed these findings with daughter. At this time she will has mild to moderate symptoms, no seizure, or obtunded state. COVID-19 and influenza testing are negative. CT of the head and cervical spine without acute intracranial pathology or fracture/subluxation. Time: 00:38 Reevaluation #2: Urine sodium is high; 48, urine osmolality is low 201, at this time not clear SIADH picture, discussed this case with hospitalist, Dr. Mckenzie, to degree of hyponatremia, advised to consult with tank assembler, I spoke with Dr. Reynolds, who accepts patient for admission. Hip and knee XR remain pending at this time. Time: 01:14 Medical Decision Making Medical Decision Making [facility] Narrative: Patient is an 87-year-old female who presents emergency department for evaluation after a fall with head strike. Exact etiology is unknown, whether this was mechanical in nature for whether she had any precipitating symptoms. She has been experiencing confusion secondary to urinary tract infection, she does not provide a clear history surrounding the events of the fall. Will obtain CBC to evaluate for leukocytosis/ anemia, CMP and lipase to evaluate for abnormal electrolytes /abnormal renal function/ abnormal hepatic/biliary function, CT of the head and cervical spine to exclude ICH, SDH, fracture, traumatic subluxation, and XR of the right hip/knee for evaluation of fracture and Urinalysis. Differential Diagnosis Differential Diagnoses: The differential diagnosis associated with the presentation includes (Presyncope, orthostatic hypotension, mechanical fall, 1 encephalopathy secondary to infection) Admission/Observation Consideration of admission/observation: Escalation of care including admission/observation considered (Admission for hyponatremia, see course narrative for further detail) Consult Healthcare Provider Management of the patient was discussed with: Hospitalist Lab Data [facility] Lab Attestation statement: I reviewed the patient's lab results. See course narrative for further detail 01/28/23 22:32 01/29/23 01:36 Labs: Lab Results 01/28/23 01/28/23 01/29/23 Range/Units 22:32 23:10 00:01 WBC 6.1 (4.8-10.8) X10*3/uL RBC 4.00 L (4.20-5.50) X10*6/uL Hgb 12.2 (12.0-16.0) g/dl Hct 34.6 L (37.0-47.0) % MCV 86.5 (80.0-98.0) fL MCH 30.5 (27.0-33.0) pg MCHC 35.3 H (31.0-35.0) g/dl RDW 12.8 (11.0-16.0) % Plt Count 153 L (160-400) X10*3/uL MPV 10.2 (9.4-12.3) fL Immature Gran % (Auto) 0.5 H (0.0-0.4) % Neut % (Auto) 67.1 (45-73) % Lymph % (Auto) 19.6 L (20-40) % [place] % (Auto) 9.5 (2-11) % Eos % (Auto) 2.8 (0-4) % Baso % (Auto) 0.5 (0-2) % Lymph # (Auto) 1.2 (1.2-4.9) X10*3/uL [place] # (Auto) 0.6 (0.1-1.2) X10*3/uL Eos # (Auto) 0.2 (0.0-0.4) X10*3/uL Baso # (Auto) 0.0 (0.0-0.2) X10*3/uL Abs Immat Gran (auto) 0.03 (0.00-0.03) X10*3/uL Absolute Neuts (auto) 4.1 (2.0-8.3) x10*3/uL Absolute Nucleated RBC 0.000 (0.0-0.012) X10*3/uL Nucleated RBC % (auto) 0.0 (0.0-0.2) /100WBC Sodium 120 L* (135-145) mmol/L Potassium 3.9 (3.3-5.1) mmol/L Chloride 90 L (96-108) mmol/L Carbon Dioxide 20 L (22-29) mmol/L Anion Gap 14 (12-20) BUN 11 (9-16) mg/dL Creatinine 0.85 (0.5-1.4) mg/dL Estim Creat Clear Calc 50.5 Estimated GFR > 60 Random Glucose 94 (60-115) mg/dL Osmolality 254 L (281-305) mosm/kg Calcium 9.0 (8.4-10.2) mg/dL Total Bilirubin 0.5 (0.0-1.0) mg/dL AST 13 (5-31) U/L ALT 6 (0-31) U/L Alkaline Phosphatase 58 (39-117) U/L Total Protein 6.7 (6.5-8.0) g/dL Albumin 4.0 (3.5-5.0) g/dL Urine Color Urine Appearance Urine pH (5.0-9.0) Ur Specific [place] (1.005-1.025) Urine Protein (Neg-Trace) mg/dL Urine Glucose (UA) (Negative) mg/dL Urine Ketones (Negative) mg/dL Urine Blood (Negative) Urine Nitrite (Negative) Ur Leukocyte Esterase (Negative) Urine Osmolality (373-1093) mosm/kg Ur Random Sodium mmol/L COVID-19 (CHRISTINE) Negative (Negative) COVID-19 Clin Com See Note Influenza Type A (BRAYAN) Negative (Negative) Influenza Type B (BRAYAN) Negative (Negative) Influenza A & B Note See Note 01/29/23 01/29/23 Range/Units 00:53 01:36 WBC (4.8-10.8) X10*3/uL RBC (4.20-5.50) X10*6/uL Hgb (12.0-16.0) g/dl Hct (37.0-47.0) % MCV (80.0-98.0) fL MCH (27.0-33.0) pg MCHC (31.0-35.0) g/dl RDW (11.0-16.0) % Plt Count (160-400) X10*3/uL MPV (9.4-12.3) fL Immature Gran % (Auto) (0.0-0.4) % Neut % (Auto) (45-73) % Lymph % (Auto) (20-40) % [place] % (Auto) (2-11) % Eos % (Auto) (0-4) % Baso % (Auto) (0-2) % Lymph # (Auto) (1.2-4.9) X10*3/uL [place] # (Auto) (0.1-1.2) X10*3/uL Eos # (Auto) (0.0-0.4) X10*3/uL Baso # (Auto) (0.0-0.2) X10*3/uL Abs Immat Gran (auto) (0.00-0.03) X10*3/uL Absolute Neuts (auto) (2.0-8.3) x10*3/uL Absolute Nucleated RBC (0.0-0.012) X10*3/uL Nucleated RBC % (auto) (0.0-0.2) /100WBC Sodium 121 L (135-145) mmol/L Potassium 3.8 (3.3-5.1) mmol/L Chloride 91 L (96-108) mmol/L Carbon Dioxide 21 L (22-29) mmol/L Anion Gap 13 (12-20) BUN 11 (9-16) mg/dL Creatinine 0.81 (0.5-1.4) mg/dL Estim Creat Clear Calc 53.0 Estimated GFR > 60 Random Glucose 97 (60-115) mg/dL Osmolality (281-305) mosm/kg Calcium 9.1 (8.4-10.2) mg/dL Total Bilirubin (0.0-1.0) mg/dL AST (5-31) U/L ALT (0-31) U/L Alkaline Phosphatase (39-117) U/L Total Protein (6.5-8.0) g/dL Albumin (3.5-5.0) g/dL Urine Color Yellow Urine Appearance Clear Urine pH 7.0 (5.0-9.0) Ur Specific [place] <= 1.005 (1.005-1.025) Urine Protein Negative (Neg-Trace) mg/dL Urine Glucose (UA) Negative (Negative) mg/dL Urine Ketones Negative (Negative) mg/dL Urine Blood Negative (Negative) Urine Nitrite Negative (Negative) Ur Leukocyte Esterase Negative (Negative) Urine Osmolality 201 L (373-1093) mosm/kg Ur Random Sodium 48.0 mmol/L COVID-19 (CHRISTINE) (Negative) COVID-19 Clin Com Influenza Type A (BRAYAN) (Negative) Influenza Type B (BRAYAN) (Negative) Influenza A & B Note Independent Interpretation I performed an independent interpretation of an: Plain X-Ray and CT Scan Radiology Impression Discussion of test interpretation with radiology: I have reviewed the radiologist's reading. Radiologist Impression: CT/CT cervical spine wo IV con IMPRESSION: HEAD: Limited evaluation due to motion artifact. No no appreciable acute intracranial findings. CERVICAL SPINE: No acute findings identified. Severe degenerative changes as noted above. XR/XR hip RT w PEL1V IMPRESSION: No acute findings identified. Independent Historian Clinical information obtained from an independent historian. History obtained from or confirmed by: EMS and Other (Daughter present at bedside who confirms history) External Record Review External record reviewed: Outpatient record and Prior outpatient labs Critical Care Time Critical Care Time Critical Care Time: Yes Total Critical Care Time: 42 Attestation: I personally attest to this critical care time spent taking care of the patient exclusive of all other billable procedures was approximately 42 minutes including initial evaluation of patient, ordering tests, x-ray interpretation, EKG interpretation, medical consultation, documentation, re-evaluation. Discharge Plan Discharge Clinical Impression: Acute hyponatremia, Fall Patient Disposition: Admitted As Inpatient
[2023-01-28 22:55] LABS: Alanine Aminotransferase 6 U/L (0-31); Alkaline Phosphatase 58 U/L (39-117); Anion Gap 14 (12-20); Aspartate Amino Transferase 13 U/L (5-31); Bilirubin Total 0.5 mg/dL (0.0-1.0); Blood Urea Nitrogen 11 mg/dL (9-16); Carbon Dioxide 20 mmol/L (22-29); Chloride 90 mmol/L (96-108); Creatinine Clr Calc Pharmacy 50.5; Estimated Glomerular Filt Rate > 60; Glucose Random 94 mg/dL (60-115); Potassium 3.9 mmol/L (3.3-5.1); Total Protein 6.7 g/dL (6.5-8.0)
[2023-01-28 22:57] LABS: Sodium 120 mmol/L (135-145)
[2023-01-28 23:37] LABS: Osmolality, Serum 254 mosm/kg (281-305)
[2023-01-29] VITALS (10 sets, daily range): BP systolic 139–183; BP diastolic 43–84; PULSE 68–84; RESP 14–20; TEMP 35.9–36.6; O2SAT 93–98; BMI 23.8
[2023-01-29 00:22] LABS: COVID-19 Test Negative (Negative); IDNOW Serial# BCCEAD1C
[2023-01-29 00:23] LABS: IDNOW Serial# 08D9AD1C; Influenza A Negative (Negative); Influenza B2 Negative (Negative)
[2023-01-29 01:01] LABS: Appearance Urine Clear; Color Urine Yellow; Glucose Urine UA Negative (Negative); Leukocyte Esterase Urine Negative (Negative); Nitrite Urine Negative (Negative); Specific Gravity - Urine <= 1.005 (1.005-1.025); Urine Blood Negative (Negative); Urine Ketones Negative (Negative); Urine Protein Negative (Neg-Trace)
[2023-01-29 01:13] LABS: Osmolality Urine 201 mosm/kg (373-1093)
[2023-01-29 01:56] LABS: Anion Gap 13 (12-20); Blood Urea Nitrogen 11 mg/dL (9-16); Calcium 9.1 mg/dL (8.4-10.2); Carbon Dioxide 21 mmol/L (22-29); Chloride 91 mmol/L (96-108); Estimated Glomerular Filt Rate > 60; Glucose Random 97 mg/dL (60-115); Potassium 3.8 mmol/L (3.3-5.1); Sodium 121 mmol/L (135-145)
--- NOTE | 2023-01-29 03:15 | PC.NURSE ---
Med req completed
[2023-01-29] MEDS: Heparin Sodium,Porcine 5,000 UNIT/ML VIAL 5000 UNIT SUBCUT ×2 (03:43→16:58)
--- NOTE | 2023-01-29 04:30 | P.HPCC_ITS ---
History of Present Illness Date of Service: 01/29/23 Attending physician on admission: Ady Reynolds Chief Complaint: Hyponatremia Ms. Dorado Is an 87-year-old female with past medical history of hypertension, hypercholesterolemia, GERD, CVA, hypothyroid, DVT of left leg, seizure disorder, cholelithiasis, obesity,? anxiety, gout? who was brought to the emergency department via EMS for evaluation after a fall without loss of consciousness. According to her daughter,? she has been confused for the past 2 or 3 days. She was started on Bactrim for urinary tract infection and her anti-hypertensive was changed from amlodipine to lisinopril about a week ago. Her daughter also states that she has been experiencing intermittent headaches, generalized weakness, and a few episodes of vomiting. On arrival to the emergency room, the patient?s blood pressure was 176/74, heart rate 73, temp 97.8, with O2 sat 96% on room air.? Laboratory data significant for ? Sodium 120, chloride 90, CO2 20,? BUN 11, creatinine 0.85, ? glucose 94, serum osmolality 254,? urine osmo 201, urine sodium 48,? urine specific gravity < 1.005.? Imaging:? CT/CT head/brain wo IV con: HEAD: Limited evaluation due to motion artifact. No? appreciable acute intracranial findings. CERVICAL SPINE: No acute findings identified. Severe degenerative changes as noted above. XR/XR hip RT w PEL1V: No acute findings identified. XR/XR knee RT 4V: No acute findings identified. Total knee arthroplasty components in anatomic alignment. The patient was not given any medications in the emergency room.? Review of Systems 2 Review of Systems: Yes all other systems are reviewed and are negative PMFSH Past Medical History Medical History Left leg DVT Upper respiratory infection COVID-19 virus infection Burning with urination Buttock pain Status post fall Dog bite of right arm Adult general medical exam Screening for diabetes mellitus Impacted cerumen of both ears Facial lesion Overweight (BMI 25.0-29.9) Hip osteoarthritis T12 vertebral fracture Reactive airways dysfunction syndrome Pneumonia Cholelithiasis CVA (cerebral vascular accident) Obesity (BMI 30-39.9) Hypercholesterolemia Vitamin D deficiency Hypothyroid Seizure disorder Anxiety Gout GERD (gastroesophageal reflux disease) Psoriatic arthritis Hypertension Functional capacity: uses cane/walker Family History Family History Father No problems noted. Mother Acute CVA (cerebrovascular accident) Diabetes Brother Cancer Daughter History of nephrectomy Son Heart disease Surgical History Surgical History History of Mohs surgery for squamous cell carcinoma of skin History of cataract surgery History of colonoscopy History of knee replacement procedure of right knee History of left knee replacement Social History Social History Household Members: Children Household Members Other:: Daughter (Katie) and son-in-law Housing: House Do you presently have visiting nurse or other home services: No Alcohol intake: never Patient Tobacco Use Status: Never used Tobacco Smoked in Last 30 Days: No e-Cigarette/Vaping Use: Never Used Second Hand Smoke Exposure: No Use of substances other than those prescribed or required for medical reasons: No Have you been hit, kicked, punched, or otherwise hurt by someone within the past year? If so, by whom?: No Do you feel safe in your current relationship?: Yes Is there a partner from a previous relationship who is making you feel unsafe now?: No Are you made to feel afraid or neglected: No Buddhism Healthcare Practices: Temple Advance Directives: No Advance Directives Information Provided: Yes Do you have thoughts of harming others: None Do you have a plan to hurt others: No Plan Recently lost weight without trying: No How much weight loss: Not applicable Eating poorly because of decreased appetite: No Nutrition screen score: 0 Nutrition Risks: No Nutritional Risk Patient : No : No Poor oral hygiene: No service: No Current occupational status: retired Cognitive needs: No Hearing needs: Yes (hearing aides) Vision needs: No Meds Allergies Allergy/AdvReac Type Severity Reaction Status Date / Time hydrochlorothiazide Allergy Unknown Electrolyte Verified 01/19/23 14:48 abnormality oxycodone [OXYCODONE] Allergy Unknown VOMITTING,C Verified 01/19/23 14:48 ONFUSION amlodipine AdvReac Intermediate leg Verified 01/19/23 14:48 swelling Active Medications: Current Medications Heparin Sodium (Porcine) (Heparin Sodium,Porcine 5,000 Unit/Ml Vial) 5,000 unit SUBCUT Q12H [facility] Last Admin: 01/29/23 03:43 Dose: 5,000 unit Sodium Chloride (Ns) 250 mls @ 999 mls/hr IV .Q16M [facility] Stop: 01/29/23 04:45 Levetiracetam (Keppra) 500 mg in 100 mls @ 400 mls/hr IV 0600,1800 [facility] Levothyroxine Sodium (Levothyroxine Sodium 88 Mcg Tablet) 88 mcg PO DAILY@0630 [facility] Magnesium Oxide (Magnesium Oxide 400 Mg Tablet) 400 mg PO DAILY [facility] Non-Formulary Medication (Fluticasone Propion-Salmeterol [Advair Diskus]) 1 each INHALE BID [facility] Non-Formulary Medication (Lidocaine [Lidoderm]) 1 patch TOPICAL DAILY [facility] Home Medications Medication Instructions Recorded Confirmed Last Taken Type amlodipine 5 mg tablet 5 mg PO DAILY 01/29/23 01/29/23 Unknown History fluticasone 100 mcg-salmeterol 50 1 ea inhalation BID 01/29/23 01/29/23 Unknown History mcg/dose blistr powdr for inhalation (Advair Diskus) lisinopril 5 mg tablet 5 mg PO DAILY 01/29/23 01/29/23 Unknown History mirabegron 25 mg tablet,extended 25 mg PO DAILY 01/29/23 01/29/23 Unknown History release 24 hr (Myrbetriq) Physical Exam 2 Vital Signs: Vital Signs: Last Vital Signs Temp 97.6 F 01/29/23 04:09 Pulse 76 01/29/23 04:09 Resp 18 01/29/23 04:09 BP 165/43 H 01/29/23 04:09 Pulse Ox 95 01/29/23 04:09 O2 Del Method Room Air 01/29/23 04:09 BMI result Body Mass Index 28.2 Const: General: cooperative, comfortable, no acute distress and alert O rientation/consciousness: patient oriented x3 (answering appropriately.) L imitations: ambulation with walker HEENT: Head: Yes normocephalic and Yes atraumatic General nose exam: Normal external nose present (Nares patent, septum midline, sinuses nontender bilaterally.) Mouth: Normal oral and palatal mucosa present ( Tongue in midline. Mucosa dry.) Teeth and gingiva: poor dentition Eyes: Pupils: Equal, round and reactive pupils present Neck: Neck: Yes supple (no thyromegaly, trachea midline.) Carotids: normal carotid upstroke Resp: Auscultation: clear to auscultation bilaterally (normal work of breathing, no accessory muscle use) Cardio: Jugular venous distension: no JVD Rate: regular rate Rhythm: r egular rhythm Heart sounds: no gallops, no murmurs and no rubs Peripheral pulses: Peripheral pulses 2+ throughout GI: Palpation (GI): Soft to palpation (nondistended.) and nontender A uscultation: normal bowel sounds Skin: General skin exam: dry skin and turgor decreased Neuro: General: patient oriented x3 (answering appropriately.) Cranial nerves: Yes Equal, round and reactive pupils present Extrem: General: Yes capillary refill normal and Yes no clubbing, cyanosis or edema Psych: Appearance: grossly normal Affect: normal affect Attitude: c ooperative Results Labs 01/28/23 22:32 01/29/23 01:36 Labs: Laboratory Results - last 24 hr 01/28/23 01/28/23 01/29/23 22:32 23:10 00:01 MCV 86.5 MCH 30.5 MCHC 35.3 H RDW 12.8 Plt Count 153 L MPV 10.2 Immature Gran % (Auto) 0.5 H Neut % (Auto) 67.1 Lymph % (Auto) 19.6 L Miner % (Auto) 9.5 Eos % (Auto) 2.8 Baso % (Auto) 0.5 Lymph # (Auto) 1.2 Miner # (Auto) 0.6 Eos # (Auto) 0.2 Baso # (Auto) 0.0 Abs Immat Gran (auto) 0.03 Absolute Neuts (auto) 4.1 Absolute Nucleated RBC 0.000 Nucleated RBC % (auto) 0.0 Anion Gap 14 Estim Creat Clear Calc 50.5 Estimated GFR > 60 Random Glucose 94 Osmolality 254 L Calcium 9.0 Total Bilirubin 0.5 AST 13 ALT 6 Alkaline Phosphatase 58 Total Protein 6.7 Albumin 4.0 Urine Color Urine Appearance Urine pH Ur Specific [place] Urine Protein Urine Glucose (UA) Urine Ketones Urine Blood Urine Nitrite Ur Leukocyte Esterase Urine Osmolality Ur Random Sodium COVID-19 (CHRISTINE) Negative COVID-19 Clin Com See Note Influenza Type A (BRAYAN) Negative Influenza Type B (BRAYAN) Negative Influenza A & B Note See Note 01/29/23 01/29/23 00:53 01:36 MCV MCH MCHC RDW Plt Count MPV Immature Gran % (Auto) Neut % (Auto) Lymph % (Auto) Miner % (Auto) Eos % (Auto) Baso % (Auto) Lymph # (Auto) Miner # (Auto) Eos # (Auto) Baso # (Auto) Abs Immat Gran (auto) Absolute Neuts (auto) Absolute Nucleated RBC Nucleated RBC % (auto) Anion Gap 13 Estim Creat Clear Calc 53.0 Estimated GFR > 60 Random Glucose 97 Osmolality Calcium 9.1 Total Bilirubin AST ALT Alkaline Phosphatase Total Protein Albumin Urine Color Yellow Urine Appearance Clear Urine pH 7.0 Ur Specific [place] <= 1.005 Urine Protein Negative Urine Glucose (UA) Negative Urine Ketones Negative Urine Blood Negative Urine Nitrite Negative Ur Leukocyte Esterase Negative Urine Osmolality 201 L Ur Random Sodium 48.0 COVID-19 (CHRISTINE) COVID-19 Clin Com Influenza Type A (BRAYAN) Influenza Type B (BRAYAN) Influenza A & B Note Imaging Radiologist's Impressions: Impressions Cervical Spine CT 01/28/23 23:48 IMPRESSION: HEAD: Limited evaluation due to motion artifact. No no appreciable acute intracranial findings. CERVICAL SPINE: No acute findings identified. Severe degenerative changes as noted above. Head CT 01/28/23 23:48 IMPRESSION: HEAD: Limited evaluation due to motion artifact. No no appreciable acute intracranial findings. CERVICAL SPINE: No acute findings identified. Severe degenerative changes as noted above. Hip/Pelvis X-Ray 01/29/23 01:26 IMPRESSION: No acute findings identified. Knee X-Ray 01/29/23 01:26 IMPRESSION: No acute findings identified. Total knee arthroplasty components in anatomic alignment. Assessment and Plan (1) Acute hyponatremia: Status: Acute (2) Fall: Status: Acute (3) Hypertension: Qualifiers: Hypertension type: essential hypertension Qualified Code(s): I10 - Essential (primary) hypertension Status: Acute (4) Hypothyroid: Qualifiers: Hypothyroidism type: acquired Qualified Code(s): E03.9 - Hypothyroidism, unspecified Status: Acute (5) Seizure disorder: Status: Acute Plan 87-year-old female with past medical history of hypertension, hypercholesterolemia, GERD, CVA, hypothyroid, DVT of left leg, seizure disorder admitted for management of hyponatremia. Plan: Neuro:? Hx of seizure disorder. Depakote held. Will replace with Keppra. No acute issues. Cardiac:? 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 Depakote, Bactrim, Lisinopril, ASA, PPI held. Will order TSH, cortisol, levels to r/o other causes.? GI:? no acute issues ID:? no acute issues. Heme/Onc:? No acute issues. Psych:? No acute issues. Miscellaneous: ? no acute issues Diet:? Regular diet with p.o. Water restriction 1000ml/day. Prophylaxis: Heparin Case discussed with Dr. Reynolds. Time Spent With Patient Time: Total time managing care of this patient today ____ minutes.
[2023-01-29] MEDS: 0.9 % Sodium Chloride 250 ML 999 ML IV (04:52)
[2023-01-29] MEDS: levETIRAcetam in NaCl (iso-os) 500 MG/100 ML PIGGYBACK 400 MG IV (04:57)
[2023-01-29] MEDS: Levothyroxine Sodium 88 MCG TABLET PO (06:12)
[2023-01-29 06:13] LABS: VBG Base Excess 0.9 mmol/L; VBG HCO3 24 mmol/L (22-26); VBG pCO2 35 mmHg; VBG pH 7.44 (7.32-7.43); VBG pO2 36 mmHg
[2023-01-29 06:35] LABS: Venous Blood Gas Refer to POC result
[2023-01-29 06:37] LABS: Anion Gap 13 (12-20); Blood Urea Nitrogen 10 mg/dL (9-16); Calcium 8.9 mg/dL (8.4-10.2); Carbon Dioxide 21 mmol/L (22-29); Chloride 93 mmol/L (96-108); Creatinine Clr Calc Pharmacy 47.8; Estimated Glomerular Filt Rate > 60; Glucose Random 93 mg/dL (60-115); Magnesium 1.8 mg/dL (1.6-2.6); Phosphorus 3.4 mg/dL (2.7-4.5); Sodium 123 mmol/L (135-145)
[2023-01-29 06:40] LABS: Osmolality Urine 132 mosm/kg (373-1093)
[2023-01-29 06:51] LABS: Cortisol Random 13.9 ug/dL
[2023-01-29 06:52] LABS: TSH reflex Free T4 0.45 uIU/mL (0.32-4.0)
[2023-01-29] MEDS: 0.9 % Sodium Chloride 1,000 ML 40 ML IVCONT (07:31)
[2023-01-29] MEDS: Lidocaine 4 % Patch ADH..PATCH 1 PATCH TRANSDERMA (08:30)
[2023-01-29] MEDS: Magnesium Oxide 400 MG TABLET PO (08:31)
--- NOTE | 2023-01-29 08:57 | MHC.CM.PN ---
Addendum entered by Rafaela Boyd RN 01/29/23 09:20: CM ATTEMPTED HOME PHONE HOWEVER D/T PHONE ISSUES CM UNABLE TO GET THROUGH Addendum entered by Rafaela Boyd RN 01/29/23 09:09: CM ATTMEPTED TO CONTACT PT'S DTR MONICA ON CELL ON FILE, DETAILED MESSAGE LEFT AND CM WILL REVISIT IF NO CALL BACK. Original Note: CM ATTEMPTED TO MEET W/PT HOWEVER PT UNABLE TO PARTICIPATE IN CM ASSESSMENT D/T MENTAL STATUS, CM TO CONTACT PT'S DTR MONICA.
--- NOTE | 2023-01-29 09:21 | PM.EVENT ---
Event Note Date of Service: 01/29/23 Event Note: pt seen and examined, labs meds reviewed. 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 Request Nephrology consult. O/w A/P per H and P from this morning, home meds reconciled Time Spent With Patient Time: Total time managing care of this patient today ____ minutes.
[2023-01-29 13:45] LABS: Anion Gap 16 (12-20); Carbon Dioxide 21 mmol/L (22-29); Chloride 94 mmol/L (96-108); Potassium 4.1 mmol/L (3.3-5.1); Sodium 127 mmol/L (135-145)
--- NOTE | 2023-01-29 13:50 | PHA.MEDREC ---
Pharmacy Consult ? Medication Reconciliation Pharmacy has reviewed the medication reconciliation. Spoke to daughter Katie and updated the home medication list.
--- NOTE | 2023-01-29 15:11 | MHC.CM.PN ---
IMM 01/29/23 DELIVERED TO SON/HCP IVANNA, PER CONVERSATION COPY LEFT AT BEDSIDE, IVANNA REPORTS PT'S DTR/ALT HCP MONICA LIVES W/PT AND ASSISTS W/NEEDS, PT USES A ROLLATER WHEN SHOPPING AND NR IS HANDICAPPED ACCESSIBLE D/T NEEDS OF PT'S WHO HAS SINCE . IVANNA REPORTS GOAL FOR DC IS HOME HOWEVER AGREEABLE TO [facility] SERVICES IF NEEDED. IVANNA REPORTS MONICA WORKS FROM HOME EXCEPT ONE DAY A WEEK. 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
--- NOTE | 2023-01-29 15:41 | P.CONNP_ITS ---
History of Present Illness Reason for Consult Consult date: 01/29/23 Chief Complaint Chief complaint: Hyponatremia History of Present Illness Narrative: RTANE CONSULTED RE hypona Adm with AMS and SNa 120 which has grad improved on PO fluid restriciotn and gentle IV NS. Not on HCTZ. Remote h/o low SNA ( 2019). Hypothyroid and adrenal insufff r/o. Urine studies c/w mixed picture of low solute intake and inapp ADH. Goal is to incr SNa no more than 6-8 meq/24 hrs if possible. Cont to track SNa and po fluid restriction and gentl IV NS Will follow with team Full dict consult to follow Review of Systems Review of Systems Yes all other systems are reviewed and are negative PMFSH Past Medical History Medical History Left leg DVT Upper respiratory infection COVID-19 virus infection Burning with urination Buttock pain Status post fall Dog bite of right arm Adult general medical exam Screening for diabetes mellitus Impacted cerumen of both ears Facial lesion Overweight (BMI 25.0-29.9) Hip osteoarthritis T12 vertebral fracture Reactive airways dysfunction syndrome Pneumonia Cholelithiasis CVA (cerebral vascular accident) Obesity (BMI 30-39.9) Hypercholesterolemia Vitamin D deficiency Hypothyroid Seizure disorder Anxiety Gout GERD (gastroesophageal reflux disease) Psoriatic arthritis Hypertension Functional capacity: uses cane/walker Family History Family History Father No problems noted. Mother Acute CVA (cerebrovascular accident) Diabetes Brother Cancer Daughter History of nephrectomy Son Heart disease Surgical History Surgical History History of Mohs surgery for squamous cell carcinoma of skin History of cataract surgery History of colonoscopy History of knee replacement procedure of right knee History of left knee replacement Social History Social History Household Members: Children Household Members Other:: Daughter (Katie) and son-in-law Housing: House Do you presently have visiting nurse or other home services: No Alcohol intake: never Patient Tobacco Use Status: Never used Tobacco Smoked in Last 30 Days: No e-Cigarette/Vaping Use: Never Used Second Hand Smoke Exposure: No Use of substances other than those prescribed or required for medical reasons: No Have you been hit, kicked, punched, or otherwise hurt by someone within the past year? If so, by whom?: No Do you feel safe in your current relationship?: Yes Is there a partner from a previous relationship who is making you feel unsafe now?: No Are you made to feel afraid or neglected: No [place] Healthcare Practices: [employer] Advance Directives: No Advance Directives Information Provided: Yes Do you have thoughts of harming others: None Do you have a plan to hurt others: No Plan Recently lost weight without trying: No How much weight loss: Not applicable Eating poorly because of decreased appetite: No Nutrition screen score: 0 Nutrition Risks: No Nutritional Risk Patient : No : No Poor oral hygiene: No service: No Current occupational status: retired Cognitive needs: No Hearing needs: Yes (hearing aides) Vision needs: No Meds Allergies Allergy/AdvReac Type Severity Reaction Status Date / Time hydrochlorothiazide Allergy Unknown Electrolyte Verified 01/19/23 14:48 abnormality oxycodone [OXYCODONE] Allergy Unknown VOMITTING,C Verified 01/19/23 14:48 ONFUSION amlodipine AdvReac Intermediate leg Verified 01/19/23 14:48 swelling Active Medications: Current Medications Fluticasone/Vilanterol (Fluticasone/Vilanterol 100/25 Blst.W.Dev) 1 puff INHALE RDAILY [facility] Last Admin: 01/29/23 07:53 Dose: Not Given Heparin Sodium (Porcine) (Heparin Sodium,Porcine 5,000 Unit/Ml Vial) 5,000 unit SUBCUT Q12H [facility] Last Admin: 01/29/23 03:43 Dose: 5,000 unit Levetiracetam (Keppra) 500 mg in 100 mls @ 400 mls/hr IV 0600,1800 [facility] Last Infusion: 01/29/23 06:01 Dose: Infused Sodium Chloride (Ns) 1,000 mls @ 40 mls/hr IVCONT .Q24H [facility] Last Admin: 01/29/23 07:31 Dose: 40 mls/hr Levothyroxine Sodium (Levothyroxine Sodium 88 Mcg Tablet) 88 mcg PO DAILY@0630 [facility] Last Admin: 01/29/23 06:12 Dose: 88 mcg Lidocaine (Lidocaine 4 % Patch Adh..Patch) 1 patch TRANSDERMA DAILY [facility] Last Admin: 01/29/23 08:30 Dose: 1 patch Lisinopril (Lisinopril 5 Mg Tablet) 5 mg PO DAILY [facility]; Protocol Loratadine (Loratadine 10 Mg Tablet) 10 mg PO DAILY [facility] Lorazepam (Lorazepam 0.5 Mg Tablet) 0.5 mg PO DAILY PRN PRN Reason: anxiety Magnesium Oxide (Magnesium Oxide 400 Mg Tablet) 400 mg PO DAILY [facility] Last Admin: 01/29/23 08:31 Dose: 400 mg Omeprazole (Omeprazole 20 Mg Capsule.Dr) 20 mg PO BID@0630,1630 [facility] Home Medications Medication Instructions Recorded Confirmed Last Taken Type aspirin 81 mg tablet,delayed 81 mg PO DAILY 01/29/23 01/29/23 Unknown History release lisinopril 5 mg tablet 5 mg PO DAILY 01/29/23 01/29/23 Unknown History mirabegron 25 mg tablet,extended 25 mg PO DAILY 01/29/23 01/29/23 Unknown History release 24 hr (Myrbetriq) Physical Exam Vital Signs: Last Vital Signs Temp 97.8 F 01/29/23 11:55 Pulse 72 01/29/23 11:55 Resp 14 01/29/23 11:55 BP 165/83 H 01/29/23 11:55 Pulse Ox 96 01/29/23 11:55 O2 Del Method Room Air 01/29/23 11:55 BMI result Body Mass Index 23.8 Const General: cooperative, comfortable, no acute distress and alert Orientation/consciousness: patient oriented x3 (answering appropriately.) Limitations: ambulation with walker HEENT Head: Yes normocephalic and Yes atraumatic General nose exam: Normal external nose present (Nares patent, septum midline, sinuses nontender bilaterally.) Mouth: Normal oral and palatal mucosa present ( Tongue in midline. Mucosa dry.) Teeth and gingiva: poor dentition Eyes Pupils: Equal, round and reactive pupils present Neck Neck: Yes supple (no thyromegaly, trachea midline.) Carotids: normal carotid upstroke Resp Auscultation: clear to auscultation bilaterally (normal work of breathing, no accessory muscle use) Cardio Jugular venous distension: no JVD Rate: regular rate Rhythm: regular rhythm Heart sounds: no gallops, no murmurs and no rubs Peripheral pulses: Peripheral pulses 2+ throughout GI Palpation (GI): Soft to palpation (nondistended.) and nontender Auscultation: normal bowel sounds Skin General skin exam: dry skin and turgor decreased Neuro General: patient oriented x3 (answering appropriately.) Cranial nerves: Yes Equal, round and reactive pupils present Extrem General: Yes capillary refill normal and Yes no clubbing, cyanosis or edema Psych Appearance: grossly normal Affect: normal affect Attitude: cooperative Results Lab Results 01/28/23 22:32 01/29/23 13:24 Lab results: Chemistry 01/28/23 01/29/23 01/29/23 22:32 01:36 06:08 Sodium 120 L* 121 L 123 L Potassium 3.9 3.8 4.0 Carbon Dioxide 20 L 21 L 21 L BUN 11 11 10 Creatinine 0.85 0.81 0.79 Calcium 9.0 9.1 8.9 Phosphorus 3.4 01/29/23 13:24 Sodium 127 L Potassium 4.1 Carbon Dioxide 21 L BUN Creatinine Calcium Phosphorus Hematology 01/28/23 22:32 WBC 6.1 Hgb 12.2 Plt Count 153 L Urinalysis 01/29/23 00:53 Urine Color Yellow Urine Appearance Clear Urine pH 7.0 Ur Specific [place] <= 1.005 Urine Protein Negative Urine Glucose (UA) Negative Urine Ketones Negative Urine Blood Negative Urine Nitrite Negative Ur Leukocyte Esterase Negative Urine Studies 01/29/23 01/29/23 00:53 06:19 Urine Osmolality 201 L 132 L Assessment and Plan (1) Acute hyponatremia: Status: Acute (2) Fall: Status: Acute (3) Hypertension: Qualifiers: Hypertension type: essential hypertension Qualified Code(s): I10 - Essential (primary) hypertension Status: Acute (4) Hypothyroid: Qualifiers: Hypothyroidism type: acquired Qualified Code(s): E03.9 - Hypothyroidism, unspecified Status: Acute (5) Seizure disorder: Status: Acute Plan 87-year-old female with past medical history of hypertension, hypercholesterolemia, GERD, CVA, hypothyroid, DVT of left leg, seizure disorder admitted for management of hyponatremia. Plan: Neuro:? Hx of seizure disorder. Depakote held. Will replace with Keppra. No acute issues. Cardiac:? 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 Depakote, Bactrim, Lisinopril, ASA, PPI held. Will order TSH, cortisol, levels to r/o other causes.? GI:? no acute issues ID:? no acute issues. Heme/Onc:? No acute issues. Psych:? No acute issues. Miscellaneous: ? no acute issues Diet:? Regular diet with p.o. Water restriction 1000ml/day. Prophylaxis: Heparin Case discussed with Dr. Reynolds. Time Spent With Patient Time: Total time managing care of this patient today ____ minutes. Procedures Date of Service Date of Service: 01/29/23
--- NOTE | 2023-01-29 18:58 | PM.CNNEP ---
History of Present Illness Reason for Consult Consult date: 01/31/23 Chief Complaint Chief complaint: Hyponatremia Review of Systems Review of Systems Yes all other systems are reviewed and are negative [facility] Past Medical History Medical History Left leg DVT Upper respiratory infection COVID-19 virus infection Burning with urination Buttock pain Status post fall Dog bite of right arm Adult general medical exam Screening for diabetes mellitus Impacted cerumen of both ears Facial lesion Overweight (BMI 25.0-29.9) Hip osteoarthritis T12 vertebral fracture Reactive airways dysfunction syndrome Pneumonia Cholelithiasis CVA (cerebral vascular accident) Obesity (BMI 30-39.9) Hypercholesterolemia Vitamin D deficiency Hypothyroid Seizure disorder Anxiety Gout GERD (gastroesophageal reflux disease) Psoriatic arthritis Hypertension Functional capacity: uses cane/walker Family History Family History Father No problems noted. Mother Acute CVA (cerebrovascular accident) Diabetes Brother Cancer Daughter History of nephrectomy Son Heart disease Surgical History Surgical History History of Mohs surgery for squamous cell carcinoma of skin History of cataract surgery History of colonoscopy History of knee replacement procedure of right knee History of left knee replacement Social History Social History Household Members: Children Household Members Other:: Daughter (Katie) and son-in-law Housing: House Do you presently have visiting nurse or other home services: No Alcohol intake: never Patient Tobacco Use Status: Never used Tobacco Smoked in Last 30 Days: No e-Cigarette/Vaping Use: Never Used Second Hand Smoke Exposure: No Use of substances other than those prescribed or required for medical reasons: No Currently Displaying Signs/Symptoms of Drug Intoxication Withdrawal: No Have you been hit, kicked, punched, or otherwise hurt by someone within the past year? If so, by whom?: No Do you feel safe in your current relationship?: Yes Is there a partner from a previous relationship who is making you feel unsafe now?: No Are you made to feel afraid or neglected: No Jehovah'S Witness Healthcare Practices: Sabianism Advance Directives: No Advance Directives Information Provided: Yes Do you have thoughts of harming others: None Do you have a plan to hurt others: No Plan Recently lost weight without trying: No How much weight loss: Not applicable Eating poorly because of decreased appetite: No Nutrition screen score: 0 Nutrition Risks: No Nutritional Risk Patient : No : No Poor oral hygiene: No service: No Current occupational status: retired Cognitive needs: No Hearing needs: Yes (hearing aides) Vision needs: No Meds Allergies Allergy/AdvReac Type Severity Reaction Status Date / Time hydrochlorothiazide Allergy Unknown Electrolyte Verified 01/19/23 14:48 abnormality oxycodone [OXYCODONE] Allergy Unknown VOMITTING,C Verified 01/19/23 14:48 ONFUSION amlodipine AdvReac Intermediate leg Verified 01/19/23 14:48 swelling Active Medications: Current Medications Fluticasone/Vilanterol (Fluticasone/Vilanterol 100/25 Blst.W.Dev) 1 puff INHALE RDAILY [facility] Last Admin: 01/29/23 07:53 Dose: Not Given Heparin Sodium (Porcine) (Heparin Sodium,Porcine 5,000 Unit/Ml Vial) 5,000 unit SUBCUT Q12H [facility] Last Admin: 01/29/23 16:58 Dose: 5,000 unit Levetiracetam (Keppra) 500 mg in 100 mls @ 400 mls/hr IV 0600,1800 [facility] Last Infusion: 01/29/23 06:01 Dose: Infused Sodium Chloride (Ns) 1,000 mls @ 40 mls/hr IVCONT .Q24H [facility] Last Admin: 01/29/23 07:31 Dose: 40 mls/hr Levothyroxine Sodium (Levothyroxine Sodium 88 Mcg Tablet) 88 mcg PO DAILY@0630 [facility] Last Admin: 01/29/23 06:12 Dose: 88 mcg Lidocaine (Lidocaine 4 % Patch Adh..Patch) 1 patch TRANSDERMA DAILY [facility] Last Admin: 01/29/23 08:30 Dose: 1 patch Lisinopril (Lisinopril 5 Mg Tablet) 5 mg PO DAILY [facility]; Protocol Loratadine (Loratadine 10 Mg Tablet) 10 mg PO DAILY [facility] Lorazepam (Lorazepam 0.5 Mg Tablet) 0.5 mg PO DAILY PRN PRN Reason: anxiety Magnesium Oxide (Magnesium Oxide 400 Mg Tablet) 400 mg PO DAILY [facility] Last Admin: 01/29/23 08:31 Dose: 400 mg Omeprazole (Omeprazole 20 Mg Capsule.) 20 mg PO BID@0630,1630 [facility] Home Medications Medication Instructions Recorded Confirmed Last Taken Type aspirin 81 mg tablet,delayed 81 mg PO DAILY 01/29/23 01/29/23 Unknown History release lisinopril 5 mg tablet 5 mg PO DAILY 01/29/23 01/29/23 Unknown History mirabegron 25 mg tablet,extended 25 mg PO DAILY 01/29/23 01/29/23 Unknown History release 24 hr (Myrbetriq) Physical Exam Vital Signs: Last Vital Signs Temp 97.8 F 01/29/23 11:55 Pulse 84 01/29/23 16:00 Resp 20 01/29/23 16:00 BP 140/76 H 01/29/23 16:00 Pulse Ox 97 01/29/23 16:00 O2 Del Method Room Air 01/29/23 16:00 BMI result Body Mass Index 23.8 Const General: cooperative, comfortable, no acute distress and alert Orientation/consciousness: patient oriented x3 (answering appropriately.) Limitations: ambulation with walker HEENT Head: Yes normocephalic and Yes atraumatic General nose exam: Normal external nose present (Nares patent, septum midline, sinuses nontender bilaterally.) Mouth: Normal oral and palatal mucosa present ( Tongue in midline. Mucosa dry.) Teeth and gingiva: poor dentition Eyes Pupils: Equal, round and reactive pupils present Neck Neck: Yes supple (no thyromegaly, trachea midline.) Carotids: normal carotid upstroke Resp Auscultation: clear to auscultation bilaterally (normal work of breathing, no accessory muscle use) Cardio Jugular venous distension: no JVD Rate: regular rate Rhythm: regular rhythm Heart sounds: no gallops, no murmurs and no rubs Peripheral pulses: Peripheral pulses 2+ throughout GI Palpation (GI): Soft to palpation (nondistended.) and nontender Auscultation: normal bowel sounds Skin General skin exam: dry skin and turgor decreased Neuro General: patient oriented x3 (answering appropriately.) Cranial nerves: Yes Equal, round and reactive pupils present Extrem General: Yes capillary refill normal and Yes no clubbing, cyanosis or edema Psych Appearance: grossly normal Affect: normal affect Attitude: cooperative Results Lab Results 01/28/23 22:32 01/31/23 06:29 Lab results: Chemistry 01/28/23 01/29/23 01/29/23 22:32 01:36 06:08 Sodium 120 L* 121 L 123 L Potassium 3.9 3.8 4.0 Carbon Dioxide 20 L 21 L 21 L BUN 11 11 10 Creatinine 0.85 0.81 0.79 Calcium 9.0 9.1 8.9 Phosphorus 3.4 01/29/23 13:24 Sodium 127 L Potassium 4.1 Carbon Dioxide 21 L BUN Creatinine Calcium Phosphorus Hematology 01/28/23 22:32 WBC 6.1 Hgb 12.2 Plt Count 153 L Urinalysis 01/29/23 00:53 Urine Color Yellow Urine Appearance Clear Urine pH 7.0 Ur Specific [place] <= 1.005 Urine Protein Negative Urine Glucose (UA) Negative Urine Ketones Negative Urine Blood Negative Urine Nitrite Negative Ur Leukocyte Esterase Negative Urine Studies 01/29/23 01/29/23 00:53 06:19 Urine Osmolality 201 L 132 L Assessment and Plan (1) Acute hyponatremia: Status: Acute (2) Fall: Status: Acute (3) Hypertension: Qualifiers: Hypertension type: essential hypertension Qualified Code(s): I10 - Essential (primary) hypertension Status: Acute (4) Hypothyroid: Qualifiers: Hypothyroidism type: acquired Qualified Code(s): E03.9 - Hypothyroidism, unspecified Status: Acute (5) Seizure disorder: Status: Acute Plan 87-year-old female with past medical history of hypertension, hypercholesterolemia, GERD, CVA, hypothyroid, DVT of left leg, seizure disorder admitted for management of hyponatremia. Plan: Neuro:? Hx of seizure disorder. Depakote held. Will replace with Keppra. No acute issues. Cardiac:? 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 Depakote, Bactrim, Lisinopril, ASA, PPI held. Will order TSH, cortisol, levels to r/o other causes.? GI:? no acute issues ID:? no acute issues. Heme/Onc:? No acute issues. Psych:? No acute issues. Miscellaneous: ? no acute issues Diet:? Regular diet with p.o. Water restriction 1000ml/day. Prophylaxis: Heparin Case discussed with Dr. Reynolds. Time Spent With Patient Time: Total time managing care of this patient today ____ minutes. Procedures Date of Service Date of Service: 01/31/23
[2023-01-29] MEDS: levETIRAcetam 1,000 MG TABLET 1000 MG PO (20:17)
[2023-01-29] MEDS: Omeprazole 20 MG CAPSULE.DR PO (20:17)
[2023-01-29] MEDS: Acetaminophen 325 MG TABLET 650 MG PO (20:17)
[2023-01-29] MEDS: guaiFENesin 200 MG/10 ML 10 ML LIQUID PO (20:21)
[2023-01-29] MEDS: Throat Lozenge, Medicated LOZENGE 1 LOZENGE MUCOUS MEM (20:21)
[2023-01-30] MEDS: Heparin Sodium,Porcine 5,000 UNIT/ML VIAL 5000 UNIT SUBCUT ×2 (02:46→14:21)
[2023-01-30 03:10] VITALS: BP 165/88; PULSE 75; RESP 20; TEMP 36.4; O2SAT 97
[2023-01-30] MEDS: Levothyroxine Sodium 88 MCG TABLET PO (05:42)
[2023-01-30] MEDS: guaiFENesin 200 MG/10 ML 10 ML LIQUID PO (05:42)
[2023-01-30] MEDS: Throat Lozenge, Medicated LOZENGE 1 LOZENGE MUCOUS MEM (05:42)
[2023-01-30] MEDS: Omeprazole 20 MG CAPSULE.DR PO ×2 (05:42→17:35)
[2023-01-30 07:39] LABS: Anion Gap 15 (12-20); Carbon Dioxide 21 mmol/L (22-29); Chloride 97 mmol/L (96-108); Potassium 4.5 mmol/L (3.3-5.1); Sodium 128 mmol/L (135-145)
[2023-01-30 07:52] VITALS: BP 142/78; PULSE 82; RESP 18; TEMP 36.4; O2SAT 96
[2023-01-30] MEDS: Magnesium Oxide 400 MG TABLET PO (08:54)
[2023-01-30] MEDS: lisinopriL 5 MG TABLET PO (08:54)
[2023-01-30] MEDS: Loratadine 10 MG TABLET PO (08:55)
[2023-01-30] MEDS: Acetaminophen 325 MG TABLET 650 MG PO (08:55)
[2023-01-30] MEDS: Lidocaine 4 % Patch ADH..PATCH 1 PATCH TRANSDERMA (08:56)
[2023-01-30] MEDS: levETIRAcetam 1,000 MG TABLET 1000 MG PO ×2 (08:56→21:57)
[2023-01-30 11:21] VITALS: BP 142/78; PULSE 82; O2SAT 96
[2023-01-30 12:00] VITALS: BP 129/65; PULSE 74; RESP 18; TEMP 36.1; O2SAT 98
--- NOTE | 2023-01-30 13:36 | MHC.CM.PN ---
P.T. RECOMMENDING HOME W/SERVICES, NO PREFERENCE AND [facility] REFERRAL PLACED, CM WILL CONT TO FOLLOW DC NEEDS.
[2023-01-30 14:31] LABS: Sodium 127 mmol/L (135-145)
[2023-01-30 15:18] VITALS: BP 142/76; PULSE 78; RESP 16; TEMP 36.5; O2SAT 95
--- NOTE | 2023-01-30 17:19 | HO.PM.IMPN ---
Subjective Subjective Date of Service: 01/31/23 Interval History: hyponatremia Review of Systems menatl status improving generalised weak follows simple commands Physical Exam Vital Signs: Vital Signs: Last Vital Signs Temp 97.7 F 01/30/23 15:18 Pulse 78 01/30/23 15:18 Resp 16 01/30/23 15:18 BP 142/76 H 01/30/23 15:18 Pulse Ox 95 01/30/23 15:18 O2 Del Method Room Air 01/30/23 15:18 BMI result Body Mass Index 23.8 Appearance: Alert.? Oriented X3.? cvs: rrr, q8q2pmepe . res: clear to auscultation ,no rhonchii or wheezing abd: no rebound or guarding ,nt, bs present. ext pulses present , no cyanosis. neuro: axo3 , nonfocal. Objective Data Active Medications Acetaminophen (Acetaminophen 325 Mg Tablet) 650 mg PO Q6H PRN PRN Reason: Pain, Mild (Pain Scale 1-3) Last Admin: 01/30/23 08:55 Dose: 650 mg Documented By: MICHAEL Benzocaine (Throat Lozenge, Medicated Lozenge) 1 lozenge MUCOUS MEM Q2H PRN PRN Reason: Sore Throat Last Admin: 01/30/23 05:42 Dose: 1 lozenge Documented By: GIOVANNI Fluticasone/Vilanterol (Fluticasone/Vilanterol 100/25 Blst.W.Dev) 1 puff INHALE RDAILY [facility] Last Admin: 01/30/23 11:24 Dose: Not Given Documented By: OLGA Non-Admin Reason: See Note Guaifenesin (Guaifenesin 200 Mg/10 Ml 10 Ml Liquid) 10 ml PO Q4H PRN PRN Reason: Cough Last Admin: 01/30/23 05:42 Dose: 10 ml Documented By: GIOVANNI Heparin Sodium (Porcine) (Heparin Sodium,Porcine 5,000 Unit/Ml Vial) 5,000 unit SUBCUT Q12H [facility] Last Admin: 01/30/23 14:21 Dose: 5,000 unit Documented By: MICHAEL Levetiracetam (Levetiracetam 1,000 Mg Tablet) 1,000 mg PO BID [facility] Last Admin: 01/30/23 08:56 Dose: 1,000 mg Documented By: MICHAEL Levothyroxine Sodium (Levothyroxine Sodium 88 Mcg Tablet) 88 mcg PO DAILY@0630 [facility] Last Admin: 01/30/23 05:42 Dose: 88 mcg Documented By: GIOVANNI Lidocaine (Lidocaine 4 % Patch Adh..Patch) 1 patch TRANSDERMA DAILY [facility] Last Admin: 01/30/23 08:56 Dose: 1 patch Documented By: MICHAEL Lisinopril (Lisinopril 5 Mg Tablet) 5 mg PO DAILY [facility]; Protocol Last Admin: 01/30/23 08:54 Dose: 5 mg Documented By: MICHAEL Loratadine (Loratadine 10 Mg Tablet) 10 mg PO DAILY [facility] Last Admin: 01/30/23 08:55 Dose: 10 mg Documented By: MICHAEL Lorazepam (Lorazepam 0.5 Mg Tablet) 0.5 mg PO DAILY PRN PRN Reason: anxiety Magnesium Oxide (Magnesium Oxide 400 Mg Tablet) 400 mg PO DAILY [facility] Last Admin: 01/30/23 08:54 Dose: 400 mg Documented By: MICHAEL Omeprazole (Omeprazole 20 Mg Capsule.Dr) 20 mg PO BID@0630,1630 [facility] Last Admin: 01/30/23 05:42 Dose: 20 mg Documented By: GIOVANNI Labs 01/28/23 22:32 01/31/23 06:29 Labs: Laboratory Results - last 24 hr 01/30/23 07:03 Hold Purple Top SEE NOTE Anion Gap 15 Assessment and Plan (1) Acute hyponatremia: Status: Acute Plan 87-year-old female with past medical history of hypertension, hypercholesterolemia, GERD, CVA, hypothyroid, DVT of left leg, seizure disorder admitted for management of hyponatremia. 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 Depakote, Bactrim, Lisinopril, ASA, PPI held. normal TSH, cortisol levels sodium levels in 127-128 range nephro eval noted-fluid restrictions,moniter bmp . HTN:continue lisinopril hypothyriodism: continue levothyroxine, fall: hip,knee xray,head ct -seems fine Pt eval. oob turn,incentive tushar,chest physio. seizure dis: continue ativan ,on keppra now neurochecks ,hold depakote dvt porphyalx: s/c heaprin ongoing hospitlisation need :hyponatremia- renal function and electrolytes monitering Time Spent With Patient Time: Total time managing care of this patient today ____ minutes. Quality Stroke Does the patient have a stroke diagnosis?: No VTE Prior VTE?: No VTE Risk Level:: Medical - moderate - high VTE Device Contraindication: N/A - Device Ordered VTE Drug Contraindication: N/A - Med Ordered
[2023-01-30] MEDS: traMADoL HCL 50 MG TABLET 25 MG PO (18:14)
[2023-01-30 18:58] VITALS: BP 161/71; PULSE 85; RESP 14; TEMP 36.1; O2SAT 96
--- NOTE | 2023-01-30 19:56 | P.PNNP_ITS ---
Subjective Subjective Date of Service: 01/30/23 Interval history: Seen and examined, evnts noted SNa 120---.--> 128 this am Physical Exam 2 Vital Signs: Vital Signs: Last Vital Signs Temp 96.9 F 01/30/23 18:58 Pulse 85 01/30/23 18:58 Resp 14 01/30/23 18:58 BP 161/71 H 01/30/23 18:58 Pulse Ox 96 01/30/23 18:58 O2 Del Method Room Air 01/30/23 18:58 BMI result Body Mass Index 23.8 Const: General: cooperative, comfortable, no acute distress and alert O rientation/consciousness: patient oriented x3 (answering appropriately.) L imitations: ambulation with walker HEENT: Head: Yes normocephalic and Yes atraumatic General nose exam: Normal external nose present (Nares patent, septum midline, sinuses nontender bilaterally.) Mouth: Normal oral and palatal mucosa present ( Tongue in midline. Mucosa dry.) Teeth and gingiva: poor dentition Eyes: Pupils: Equal, round and reactive pupils present Neck: Neck: Yes supple (no thyromegaly, trachea midline.) Carotids: normal carotid upstroke Resp: Auscultation: clear to auscultation bilaterally (normal work of breathing, no accessory muscle use) Cardio: Jugular venous distension: no JVD Rate: regular rate Rhythm: r egular rhythm Heart sounds: no gallops, no murmurs and no rubs Peripheral pulses: Peripheral pulses 2+ throughout GI: Palpation (GI): Soft to palpation (nondistended.) and nontender A uscultation: normal bowel sounds Skin: General skin exam: dry skin and turgor decreased Neuro: General: patient oriented x3 (answering appropriately.) Cranial nerves: Yes Equal, round and reactive pupils present Extrem: General: Yes capillary refill normal and Yes no clubbing, cyanosis or edema Psych: Appearance: grossly normal Affect: normal affect Attitude: c ooperative Objective Data Labs 01/28/23 22:32 01/30/23 14:02 Labs: Laboratory Results - last 24 hr 01/30/23 01/30/23 07:03 14:02 Hold Purple Top SEE NOTE Sodium 128 L 127 L Potassium 4.5 Chloride 97 Carbon Dioxide 21 L Anion Gap 15 Procedures Date of Service Date of Service: 01/30/23 Assessment & Plan Assessment and plan (1) Acute hyponatremia: Status: Acute (2) Fall: Status: Acute (3) Hypertension: Status: Acute (4) Hypothyroid: Status: Acute (5) Seizure disorder: Status: Acute Plan 87-year-old female with past medical history of hypertension, hypercholesterolemia, GERD, CVA, hypothyroid, DVT of left leg, seizure disorder admitted for management of hyponatremia. Euvolemic HypoNa: w/u reveals a mixed picture of LOW SOLUTE intake as reflected by lowish Uosm and inapp ADH; SNa has corrected gradually over past 36 hrs 120-->128 Hypothyroid and adrenal insuff r/o HTN: controlled REC: cont po fluid restrictionand may need added solute intake with UREA if SNA does not cont to improve; track SNa q 12 hr; goal is SNa > 130 Time Spent With Patient Time: Total time managing care of this patient today ____ minutes.
[2023-01-30] MEDS: Acetaminophen 325 MG TABLET 975 MG PO (21:57)
--- NOTE | 2023-01-30 22:18 | PC.NURSE ---
Right shoulder 2 cysts ,soft ,no redness , no pain to touch . RN spoke with pt's daughter Katie and she said that pt had one cyst for a while at home and was evaluated by her PCP . Pt has 2 cyst now and pt's daughter stated that the second one is new . THE night Hospitalist DR. Martinez was notified , will address the above matter with the day provider
[2023-01-31] VITALS (8 sets, daily range): BP systolic 113–175; BP diastolic 65–92; PULSE 69–88; RESP 18–95; TEMP 36.1–37.1; O2SAT 95–98
[2023-01-31] MEDS: Heparin Sodium,Porcine 5,000 UNIT/ML VIAL 5000 UNIT SUBCUT (02:28)
[2023-01-31] MEDS: Omeprazole 20 MG CAPSULE.DR PO ×2 (06:16→16:45)
[2023-01-31] MEDS: Levothyroxine Sodium 88 MCG TABLET PO (06:16)
[2023-01-31 07:18] LABS: Anion Gap 13 (12-20); Blood Urea Nitrogen 13 mg/dL (9-16); Calcium 9.7 mg/dL (8.4-10.2); Carbon Dioxide 22 mmol/L (22-29); Chloride 95 mmol/L (96-108); Estimated Glomerular Filt Rate > 60; Glucose Random 110 mg/dL (60-115); Potassium 4.2 mmol/L (3.3-5.1); Sodium 126 mmol/L (135-145)
[2023-01-31] MEDS: Magnesium Oxide 400 MG TABLET PO (08:12)
[2023-01-31] MEDS: Loratadine 10 MG TABLET PO (08:12)
[2023-01-31] MEDS: levETIRAcetam 1,000 MG TABLET 1000 MG PO ×2 (08:12→20:26)
[2023-01-31] MEDS: lisinopriL 5 MG TABLET PO (08:12)
[2023-01-31] MEDS: Acetaminophen 325 MG TABLET 975 MG PO ×3 (08:12→20:25)
[2023-01-31] MEDS: Lidocaine 4 % Patch ADH..PATCH 1 PATCH TRANSDERMA (08:13)
[2023-01-31] MEDS: traMADoL HCL 50 MG TABLET 25 MG PO ×2 (10:43→16:46)
[2023-01-31] MEDS: Urea 15 GM POWDER PO (11:50)
--- NOTE | 2023-01-31 13:05 | P.CDIM_ITS ---
PROVIDER RESPONSE TEXT: To clarify, the appropriate diagnosis supported by the clinical indicators: Other (explain): unclear etiology QUERY TEXT: PHYSICIAN'S DOCUMENTATION REQUEST Date of Query: 01/31/2023 07:39 AM EDT Patient Name: Ankita Dorado Admit Date: 01/29/2023 Dear Raleigh Shah, A review of the medical record indicates additional documentation may be needed. Please review below and update the documentation accordingly. Clinical Indicators: ED 01/29 - Seizure disorder, daughter states patient has been confused past two days. Disoriented to time event, being treated at home for UIT. Depakote held, will replace with Keppra. If possible, please further clarify the type/etiology of seizure(s): Idiopathic Febrile please further specify simple or complex Due to stroke Post-traumatic Due to external cause please further specify if drug, alcohol, stress, etc. 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 Please use your independent medical judgment in providing your response. THIS QUERY IS PART OF THE PERMANENT MEDICAL RECORD
--- NOTE | 2023-01-31 13:50 | MHC.CM.PN ---
EMR REVIEWED, PER MULTI DISCIPLINARY ROUNDS PT NOT MEDICALLY CLEARED D/T SODIUM LEVELS REMAINING LOW, [facility] FOLLOWING FOR HOME PT, CM WILL CONT TO FOLLOW DC NEEDS.
--- NOTE | 2023-01-31 18:27 | P.PNNP_ITS ---
Subjective Subjective Date of Service: 01/31/23 Interval history: Seen and examined, evnts noted SNa 126 this am Physical Exam 2 Vital Signs: Vital Signs: Last Vital Signs Temp 98.3 F 01/31/23 16:00 Pulse 84 01/31/23 16:00 Resp 20 01/31/23 16:00 BP 161/89 H 01/31/23 16:00 Pulse Ox 98 01/31/23 16:00 O2 Del Method Room Air 01/31/23 16:00 BMI result Body Mass Index 23.8 Const: General: cooperative, comfortable, no acute distress and alert O rientation/consciousness: patient oriented x3 (answering appropriately.) L imitations: ambulation with walker HEENT: Head: Yes normocephalic and Yes atraumatic General nose exam: Normal external nose present (Nares patent, septum midline, sinuses nontender bilaterally.) Mouth: Normal oral and palatal mucosa present ( Tongue in midline. Mucosa dry.) Teeth and gingiva: poor dentition Eyes: Pupils: Equal, round and reactive pupils present Neck: Neck: Yes supple (no thyromegaly, trachea midline.) Carotids: normal carotid upstroke Resp: Auscultation: clear to auscultation bilaterally (normal work of breathing, no accessory muscle use) Cardio: Jugular venous distension: no JVD Rate: regular rate Rhythm: r egular rhythm Heart sounds: no gallops, no murmurs and no rubs Peripheral pulses: Peripheral pulses 2+ throughout GI: Palpation (GI): Soft to palpation (nondistended.) and nontender A uscultation: normal bowel sounds Skin: General skin exam: dry skin and turgor decreased Neuro: General: patient oriented x3 (answering appropriately.) Cranial nerves: Yes Equal, round and reactive pupils present Extrem: General: Yes capillary refill normal and Yes no clubbing, cyanosis or edema Psych: Appearance: grossly normal Affect: normal affect Attitude: c ooperative Objective Data Labs 01/28/23 22:32 01/31/23 06:29 Labs: Laboratory Results - last 24 hr 01/31/23 06:29 Hold Purple Top SEE NOTE Sodium 126 L Potassium 4.2 Chloride 95 L Carbon Dioxide 22 Anion Gap 13 BUN 13 Creatinine 0.64 Estim Creat Clear Calc 59.0 Estimated GFR > 60 Random Glucose 110 Calcium 9.7 D Procedures Date of Service Date of Service: 01/31/23 Assessment & Plan Assessment and plan (1) Acute hyponatremia: Status: Acute (2) Fall: Status: Acute (3) Hypertension: Status: Acute (4) Hypothyroid: Status: Acute (5) Seizure disorder: Status: Acute Plan Euvolemic HypoNA: c/w combo of low solute intake and inapp ADH and SNa 126 this am REC: add UREA 15 gm bid and track SNa and cont Po fluid restriction Time Spent With Patient Time: Total time managing care of this patient today ____ minutes. Progress Note: Quality Stroke Does the patient have a stroke diagnosis?: No
[2023-01-31] MEDS: guaiFENesin 200 MG/10 ML 10 ML LIQUID PO (20:24)
[2023-02-01] VITALS (7 sets, daily range): BP systolic 128–161; BP diastolic 66–85; PULSE 76–84; RESP 18–20; TEMP 36.1–36.4; O2SAT 96–97
[2023-02-01] MEDS: traMADoL HCL 50 MG TABLET 25 MG PO (03:55)
[2023-02-01] MEDS: Levothyroxine Sodium 88 MCG TABLET PO (06:37)
[2023-02-01] MEDS: Omeprazole 20 MG CAPSULE.DR PO ×2 (06:37→15:30)
[2023-02-01] MEDS: Acetaminophen 325 MG TABLET 975 MG PO ×3 (08:47→21:16)
[2023-02-01] MEDS: Loratadine 10 MG TABLET PO (08:47)
[2023-02-01] MEDS: levETIRAcetam 1,000 MG TABLET 1000 MG PO ×2 (08:47→21:16)
[2023-02-01] MEDS: lisinopriL 5 MG TABLET PO (08:47)
[2023-02-01] MEDS: Magnesium Oxide 400 MG TABLET PO (08:47)
[2023-02-01] MEDS: Lidocaine 4 % Patch ADH..PATCH 1 PATCH TRANSDERMA ×2 (08:48→18:35)
[2023-02-01 09:23] LABS: Anion Gap 13 (12-20); Blood Urea Nitrogen 19 mg/dL (9-16); Calcium 9.4 mg/dL (8.4-10.2); Carbon Dioxide 25 mmol/L (22-29); Chloride 94 mmol/L (96-108); Creatinine Clr Calc Pharmacy 55.6; Estimated Glomerular Filt Rate > 60; Glucose Random 138 mg/dL (60-115); Potassium 4.3 mmol/L (3.3-5.1); Sodium 128 mmol/L (135-145)
--- NOTE | 2023-02-01 10:24 | MHC.CM.PN ---
EMR REVIEWED, NA 126 AND DECREASED FROM YESTERDAY 01/31, NO PLAN FOR D/C, [facility] FOLLOWING FOR HOME PT, CM WILL CONT TO FOLLOW DC NEEDS.
[2023-02-01] MEDS: Heparin Sodium,Porcine 5,000 UNIT/ML VIAL 5000 UNIT SUBCUT (15:29)
--- NOTE | 2023-02-01 15:57 | HO.PM.IMPN ---
Subjective Subjective Date of Service: 02/01/23 Interval History: hyponatremia Review of Systems mental status improving generalised weak follows simple commands Physical Exam Vital Signs: Vital Signs: Last Vital Signs Temp 97.0 F 02/01/23 15:19 Pulse 78 02/01/23 15:19 Resp 18 02/01/23 15:19 BP 149/66 H 02/01/23 15:19 Pulse Ox 97 02/01/23 15:19 O2 Del Method Room Air 02/01/23 11:28 BMI result Body Mass Index 23.8 Appearance: Alert.? Oriented X3.? cvs: rrr, [id number] . res: clear to auscultation ,no rhonchii or wheezing abd: no rebound or guarding ,nt, bs present. ext pulses present , no cyanosis. neuro: axo3 , nonfocal. Objective Data Active Medications Acetaminophen (Acetaminophen 325 Mg Tablet) 975 mg PO TID [facility] Last Admin: 02/01/23 15:30 Dose: 975 mg Documented By: KRISTINA Benzocaine (Throat Lozenge, Medicated Lozenge) 1 lozenge MUCOUS MEM Q2H PRN PRN Reason: Sore Throat Last Admin: 01/30/23 05:42 Dose: 1 lozenge Documented By: GIOVANNI Fluticasone/Vilanterol (Fluticasone/Vilanterol 100/25 Blst.W.Dev) 1 puff INHALE RDAILY [facility] Last Admin: 02/01/23 07:40 Dose: Not Given Documented By: OLGA Non-Admin Reason: Patient Refused Guaifenesin (Guaifenesin 200 Mg/10 Ml 10 Ml Liquid) 10 ml PO Q4H PRN PRN Reason: Cough Last Admin: 01/31/23 20:24 Dose: 10 ml Documented By: BRIEN Heparin Sodium (Porcine) (Heparin Sodium,Porcine 5,000 Unit/Ml Vial) 5,000 unit SUBCUT Q12H [facility] Last Admin: 02/01/23 15:29 Dose: 5,000 unit Documented By: KRISTINA Levetiracetam (Levetiracetam 1,000 Mg Tablet) 1,000 mg PO BID [facility] Last Admin: 02/01/23 08:47 Dose: 1,000 mg Documented By: KRISTINA Levothyroxine Sodium (Levothyroxine Sodium 88 Mcg Tablet) 88 mcg PO DAILY@0630 [facility] Last Admin: 02/01/23 06:37 Dose: 88 mcg Documented By: BRIEN Lidocaine (Lidocaine 4 % Patch Adh..Patch) 1 patch TRANSDERMA DAILY [facility] Last Admin: 02/01/23 08:48 Dose: 1 patch Documented By: KRISTINA Lisinopril (Lisinopril 5 Mg Tablet) 5 mg PO DAILY [facility]; Protocol Last Admin: 02/01/23 08:47 Dose: 5 mg Documented By: KRISTINA Loratadine (Loratadine 10 Mg Tablet) 10 mg PO DAILY [facility] Last Admin: 02/01/23 08:47 Dose: 10 mg Documented By: KRISTINA Lorazepam (Lorazepam 0.5 Mg Tablet) 0.5 mg PO DAILY PRN PRN Reason: anxiety Magnesium Oxide (Magnesium Oxide 400 Mg Tablet) 400 mg PO DAILY [facility] Last Admin: 02/01/23 08:47 Dose: 400 mg Documented By: KRISTINA Omeprazole (Omeprazole 20 Mg Capsule.Dr) 20 mg PO BID@0630,1630 [facility] Last Admin: 02/01/23 15:30 Dose: 20 mg Documented By: KRISTINA Tramadol HCl (Tramadol Hcl 50 Mg Tablet) 25 mg PO Q6H PRN PRN Reason: Pain, Mild (Pain Scale 1-3) Last Admin: 02/01/23 03:55 Dose: 25 mg Documented By: BRIEN Labs 01/28/23 22:32 02/01/23 08:52 Labs: Laboratory Results - last 24 hr 02/01/23 08:52 Anion Gap 13 Estim Creat Clear Calc 55.6 Estimated GFR > 60 Random Glucose 138 H Calcium 9.4 Assessment and Plan (1) Acute hyponatremia: Status: Acute Plan 87-year-old female with past medical history of hypertension, hypercholesterolemia, GERD, CVA, hypothyroid, DVT of left leg, seizure disorder admitted for management of hyponatremia. 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 Depakote, Bactrim, Lisinopril, ASA, PPI held. normal TSH, cortisol levels sodium levels in 127-128 range nephro eval noted-fluid restrictions,moniter bmp . HTN:continue lisinopril hypothyriodism: continue levothyroxine, fall: hip,knee xray,head ct -seems fine Pt eval. oob turn,incentive tushar,chest physio. seizure dis: continue ativan ,on keppra now neurochecks ,hold depakote shoulder pain -seems likely due to arthritis pain meds ,lidocaine patch dvt porphyalx: s/c heaprin ongoing hospitlisation need :hyponatremia- renal function and electrolytes monitering Quality Stroke Does the patient have a stroke diagnosis?: No VTE Prior VTE?: No VTE Risk Level:: Medical - moderate - high VTE Device Contraindication: N/A - Device Ordered VTE Drug Contraindication: N/A - Med Ordered
[2023-02-01] MEDS: guaiFENesin 200 MG/10 ML 10 ML LIQUID PO (21:16)
[2023-02-02] MEDS: Melatonin 3 MG TABLET 6 MG PO (01:03)
[2023-02-02] MEDS: guaiFENesin 200 MG/10 ML 10 ML LIQUID PO (01:03)
[2023-02-02 03:12] VITALS: BP 110/76; PULSE 74; RESP 20; TEMP 36.1; O2SAT 95
[2023-02-02] MEDS: Omeprazole 20 MG CAPSULE.DR PO ×2 (06:03→18:01)
[2023-02-02] MEDS: Levothyroxine Sodium 88 MCG TABLET PO (06:03)
[2023-02-02 08:00] VITALS: BP 143/68; PULSE 85; RESP 16; TEMP 36.5; O2SAT 99
[2023-02-02] MEDS: Magnesium Oxide 400 MG TABLET PO (09:29)
[2023-02-02] MEDS: levETIRAcetam 1,000 MG TABLET 1000 MG PO ×2 (09:29→21:09)
[2023-02-02] MEDS: lisinopriL 5 MG TABLET PO (09:29)
[2023-02-02] MEDS: Loratadine 10 MG TABLET PO (09:29)
[2023-02-02] MEDS: Lidocaine 4 % Patch ADH..PATCH 1 PATCH TRANSDERMA ×2 (09:29→09:36)
[2023-02-02] MEDS: Acetaminophen 325 MG TABLET 975 MG PO ×2 (09:29→21:09)
[2023-02-02 10:14] VITALS: BP 143/68; PULSE 85; O2SAT 99
[2023-02-02 11:40] LABS: Anion Gap 13 (12-20); Blood Urea Nitrogen 19 mg/dL (9-16); Calcium 9.3 mg/dL (8.4-10.2); Carbon Dioxide 26 mmol/L (22-29); Chloride 92 mmol/L (96-108); Creatinine Clr Calc Pharmacy 59.9; Estimated Glomerular Filt Rate > 60; Glucose Random 104 mg/dL (60-115); Potassium 4.5 mmol/L (3.3-5.1); Sodium 126 mmol/L (135-145)
[2023-02-02 12:00] VITALS: BP 140/63; PULSE 73; RESP 16; TEMP 36.3; O2SAT 98
[2023-02-02] MEDS: Acetaminophen 325 MG TABLET 650 MG PO (14:35)
[2023-02-02] MEDS: Heparin Sodium,Porcine 5,000 UNIT/ML VIAL 5000 UNIT SUBCUT (14:36)
[2023-02-02 15:29] VITALS: BP 151/96; PULSE 88; RESP 17; TEMP 36.3; O2SAT 98
--- NOTE | 2023-02-02 15:46 | P.PNNP_ITS ---
Subjective Subjective Date of Service: 02/02/23 Interval history: no complaints Na stagnant. Physical Exam 2 Vital Signs: Vital Signs: Last Vital Signs Temp 97.4 F 02/02/23 15:29 Pulse 88 02/02/23 15:29 Resp 17 02/02/23 15:29 BP 151/96 H 02/02/23 15:29 Pulse Ox 98 02/02/23 15:29 O2 Del Method Room Air 02/02/23 15:29 BMI result Body Mass Index 23.8 Const: Orientation/consciousness: patient oriented x3 (answering appropriately.) Resp: Auscultation: clear to auscultation bilaterally (normal work of breathing, no accessory muscle use) Cardio: Jugular venous distension: no JVD Rate: regular rate Rhythm: r egular rhythm GI: Palpation (GI): Soft to palpation (nondistended.) Neuro: General: patient oriented x3 (answering appropriately.) Objective Data Labs 01/28/23 22:32 02/02/23 11:19 Labs: Laboratory Results - last 24 hr 02/02/23 11:19 Sodium 126 L Potassium 4.5 Chloride 92 L Carbon Dioxide 26 Anion Gap 13 BUN 19 H Creatinine 0.63 Estim Creat Clear Calc 59.9 Estimated GFR > 60 Random Glucose 104 Calcium 9.3 Procedures Date of Service Date of Service: 02/02/23 Assessment & Plan Assessment and plan (1) Acute hyponatremia: Status: Acute (2) Fall: Status: Acute (3) Hypertension: Status: Acute (4) Hypothyroid: Status: Acute (5) Seizure disorder: Status: Acute Plan classic low solute intake hyponatremia 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 Progress Note: Quality Stroke Does the patient have a stroke diagnosis?: No
--- NOTE | 2023-02-02 16:35 | P.PNIM_ITS ---
Subjective Subjective Date of Service: 02/02/23 Interval History: hyponatremia Review of Systems mental status improving generalised weak follows simple commands Physical Exam 2 Vital Signs: Vital Signs: Last Vital Signs Temp 97.4 F 02/02/23 15:29 Pulse 88 02/02/23 15:29 Resp 17 02/02/23 15:29 BP 151/96 H 02/02/23 15:29 Pulse Ox 98 02/02/23 15:29 O2 Del Method Room Air 02/02/23 15:29 BMI result Body Mass Index 23.8 Appearance: Alert.? Oriented X3.? cvs: rrr, [id number] . res: clear to auscultation ,no rhonchii or wheezing abd: no rebound or guarding ,nt, bs present. ext pulses present , no cyanosis. neuro: axo3 , nonfocal. Objective Data Active Medications Acetaminophen (Acetaminophen 325 Mg Tablet) 975 mg PO TID [facility] Last Admin: 02/02/23 16:06 Dose: Not Given Documented By: MALIHA Non-Admin Reason: Patient Refused Benzocaine (Throat Lozenge, Medicated Lozenge) 1 lozenge MUCOUS MEM Q2H PRN PRN Reason: Sore Throat Last Admin: 01/30/23 05:42 Dose: 1 lozenge Documented By: GIOVANNI Fluticasone/Vilanterol (Fluticasone/Vilanterol 100/25 Blst.W.Dev) 1 puff INHALE RDAILY [facility] Last Admin: 02/02/23 08:12 Dose: Not Given Documented By: JESSICA Non-Admin Reason: Patient Refused Guaifenesin (Guaifenesin 200 Mg/10 Ml 10 Ml Liquid) 10 ml PO Q4H PRN PRN Reason: Cough Last Admin: 02/02/23 01:03 Dose: 10 ml Documented By: BRIEN Heparin Sodium (Porcine) (Heparin Sodium,Porcine 5,000 Unit/Ml Vial) 5,000 unit SUBCUT Q12H [facility] Last Admin: 02/02/23 14:36 Dose: 5,000 unit Documented By: MALIHA Levetiracetam (Levetiracetam 1,000 Mg Tablet) 1,000 mg PO BID [facility] Last Admin: 02/02/23 09:29 Dose: 1,000 mg Documented By: JOCELYN Levothyroxine Sodium (Levothyroxine Sodium 88 Mcg Tablet) 88 mcg PO DAILY@0630 [facility] Last Admin: 02/02/23 06:03 Dose: 88 mcg Documented By: BRIEN Lidocaine (Lidocaine 4 % Patch Adh..Patch) 1 patch TRANSDERMA DAILY [facility] Last Admin: 02/02/23 09:29 Dose: 1 patch Documented By: JOCELYN Lidocaine (Lidocaine 4 % Patch Adh..Patch) 1 patch TRANSDERMA DAILY [facility]; Protocol Last Admin: 02/02/23 09:36 Dose: 1 patch Documented By: JOCELYN Lisinopril (Lisinopril 5 Mg Tablet) 5 mg PO DAILY [facility]; Protocol Last Admin: 02/02/23 09:29 Dose: 5 mg Documented By: JOCELYN Loratadine (Loratadine 10 Mg Tablet) 10 mg PO DAILY [facility] Last Admin: 02/02/23 09:29 Dose: 10 mg Documented By: JOCELYN Lorazepam (Lorazepam 0.5 Mg Tablet) 0.5 mg PO DAILY PRN PRN Reason: anxiety Magnesium Oxide (Magnesium Oxide 400 Mg Tablet) 400 mg PO DAILY [facility] Last Admin: 02/02/23 09:29 Dose: 400 mg Documented By: JOCELYN Omeprazole (Omeprazole 20 Mg Capsule.Dr) 20 mg PO BID@0630,1630 [facility] Last Admin: 02/02/23 06:03 Dose: 20 mg Documented By: BRIEN Tramadol HCl (Tramadol Hcl 50 Mg Tablet) 25 mg PO Q6H PRN PRN Reason: Pain, Mild (Pain Scale 1-3) Last Admin: 02/01/23 03:55 Dose: 25 mg Documented By: BRIEN Urea (Urea 15 Gm Powder) 30 gm PO BID [facility] Labs 01/28/23 22:32 02/02/23 11:19 Labs: Laboratory Results - last 24 hr 02/02/23 11:19 Anion Gap 13 Estim Creat Clear Calc 59.9 Estimated GFR > 60 Random Glucose 104 Calcium 9.3 Assessment and Plan (1) Acute hyponatremia: Status: Acute Plan 87-year-old female with past medical history of hypertension, hypercholesterolemia, GERD, CVA, hypothyroid, DVT of left leg, seizure disorder admitted for management of hyponatremia. 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 Depakote, Bactrim, Lisinopril, ASA, PPI held. normal TSH, cortisol levels sodium levels in 126-128 range nephro eval noted-fluid restrictions,moniter bmp . HTN:continue lisinopril hypothyriodism: continue levothyroxine, fall: hip,knee xray,head ct -seems fine Pt eval. oob turn,incentive tushar,chest physio. seizure dis: continue ativan ,on keppra now neurochecks ,hold depakote shoulder pain -seems likely due to arthritis pain meds ,lidocaine patch dvt porphyalx: s/c heaprin ongoing hospitlisation need :hyponatremia- renal function and electrolytes monitering Quality Stroke Does the patient have a stroke diagnosis?: No VTE Prior VTE?: No VTE Risk Level:: Medical - moderate - high VTE Device Contraindication: N/A - Device Ordered VTE Drug Contraindication: N/A - Med Ordered
[2023-02-02 19:08] VITALS: BP 147/76; PULSE 82; RESP 20; TEMP 36.4; O2SAT 96
[2023-02-02] MEDS: Urea 15 GM POWDER 30 GM PO (21:10)
[2023-02-03] VITALS (7 sets, daily range): BP systolic 127–160; BP diastolic 61–86; PULSE 83–105; RESP 16–20; TEMP 35.9–36.5; O2SAT 95–97
[2023-02-03] MEDS: Omeprazole 20 MG CAPSULE.DR PO ×2 (05:08→16:47)
[2023-02-03] MEDS: Heparin Sodium,Porcine 5,000 UNIT/ML VIAL 5000 UNIT SUBCUT ×2 (05:08→15:12)
[2023-02-03] MEDS: Levothyroxine Sodium 88 MCG TABLET PO (05:08)
[2023-02-03 09:16] LABS: Anion Gap 12 (12-20); Blood Urea Nitrogen 32 mg/dL (9-16); Calcium 9.7 mg/dL (8.4-10.2); Carbon Dioxide 25 mmol/L (22-29); Chloride 96 mmol/L (96-108); Creatinine Clr Calc Pharmacy 55.6; Estimated Glomerular Filt Rate > 60; Glucose Random 110 mg/dL (60-115); Potassium 4.3 mmol/L (3.3-5.1); Sodium 129 mmol/L (135-145)
[2023-02-03] MEDS: Acetaminophen 325 MG TABLET 975 MG PO ×2 (09:18→15:11)
[2023-02-03] MEDS: Loratadine 10 MG TABLET PO (09:19)
[2023-02-03] MEDS: Magnesium Oxide 400 MG TABLET PO (09:19)
[2023-02-03] MEDS: levETIRAcetam 1,000 MG TABLET 1000 MG PO ×2 (09:19→20:06)
[2023-02-03] MEDS: lisinopriL 5 MG TABLET PO (09:19)
[2023-02-03] MEDS: Lidocaine 4 % Patch ADH..PATCH 1 PATCH TRANSDERMA (09:20)
[2023-02-03] MEDS: Urea 15 GM POWDER 30 GM PO ×2 (09:20→20:07)
--- NOTE | 2023-02-03 09:29 | P.PNNP_ITS ---
Subjective Subjective Date of Service: 02/03/23 Interval history: Na better BUN rising due to urea on good trajectory Physical Exam 2 Vital Signs: Vital Signs: Last Vital Signs Temp 97.6 F 02/03/23 07:55 Pulse 85 02/03/23 07:55 Resp 18 02/03/23 07:55 BP 147/61 H 02/03/23 07:55 Pulse Ox 97 02/03/23 07:55 O2 Del Method Room Air 02/03/23 07:55 BMI result Body Mass Index 23.8 Const: Orientation/consciousness: patient oriented x3 (answering appropriately.) Resp: Auscultation: clear to auscultation bilaterally (normal work of breathing, no accessory muscle use) Cardio: Jugular venous distension: no JVD Rate: regular rate Rhythm: r egular rhythm GI: Palpation (GI): Soft to palpation (nondistended.) Neuro: General: patient oriented x3 (answering appropriately.) Objective Data Labs 01/28/23 22:32 02/03/23 08:26 Labs: Laboratory Results - last 24 hr 02/02/23 02/03/23 11:19 08:26 Sodium 126 L 129 L Potassium 4.5 4.3 Chloride 92 L 96 Carbon Dioxide 26 25 Anion Gap 13 12 BUN 19 H 32 H Creatinine 0.63 0.68 Estim Creat Clear Calc 59.9 55.6 Estimated GFR > 60 > 60 Random Glucose 104 110 Calcium 9.3 9.7 Procedures Date of Service Date of Service: 02/03/23 Assessment & Plan Assessment and plan (1) Acute hyponatremia: Status: Acute (2) Fall: Status: Acute (3) Hypertension: Status: Acute (4) Hypothyroid: Status: Acute (5) Seizure disorder: Status: Acute Plan classic low solute intake hyponatremia 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 Progress Note: Quality Stroke Does the patient have a stroke diagnosis?: No
[2023-02-03] MEDS: HYDROmorphone HCl 2 MG TABLET 1 MG PO (12:06)
--- NOTE | 2023-02-03 13:30 | P.PNIM_ITS ---
Subjective Subjective Date of Service: 02/03/23 Interval History: hyponatremia Review of Systems still has some lower back pain denies any chest pain or sob or abd pain or fever or chills Physical Exam 2 Vital Signs: Vital Signs: Last Vital Signs Temp 96.7 F L 02/03/23 12:00 Pulse 88 02/03/23 12:00 Resp 16 02/03/23 12:00 BP 127/64 02/03/23 12:00 Pulse Ox 97 02/03/23 12:00 O2 Del Method Room Air 02/03/23 12:00 BMI result Body Mass Index 23.8 Appearance: Alert.? Oriented X3.? cvs: rrr, [id number] . res: clear to auscultation ,no rhonchii or wheezing abd: no rebound or guarding ,nt, bs present. ext pulses present , no cyanosis. MS -lower back pain somewhat improving neuro: axo3 , nonfocal. Objective Data Active Medications Acetaminophen (Acetaminophen 325 Mg Tablet) 975 mg PO TID [facility] Last Admin: 02/03/23 09:18 Dose: 975 mg Documented By: JOAQUIN Benzocaine (Throat Lozenge, Medicated Lozenge) 1 lozenge MUCOUS MEM Q2H PRN PRN Reason: Sore Throat Last Admin: 01/30/23 05:42 Dose: 1 lozenge Documented By: GIOVANNI Fluticasone/Vilanterol (Fluticasone/Vilanterol 100/25 Blst.W.Dev) 1 puff INHALE RDAILY [facility] Last Admin: 02/03/23 08:12 Dose: Not Given Documented By: YAZ Non-Admin Reason: Patient Refused Guaifenesin (Guaifenesin 200 Mg/10 Ml 10 Ml Liquid) 10 ml PO Q4H PRN PRN Reason: Cough Last Admin: 02/02/23 01:03 Dose: 10 ml Documented By: BRIEN Guaifenesin/Codeine Phosphate (Guaifen/Codeine Sf 200/20/10ml 10 Ml Liquid) 10 ml PO Q4H PRN PRN Reason: Cough Heparin Sodium (Porcine) (Heparin Sodium,Porcine 5,000 Unit/Ml Vial) 5,000 unit SUBCUT Q12H [facility] Last Admin: 02/03/23 05:08 Dose: 5,000 unit Documented By: KATHARINE Levetiracetam (Levetiracetam 1,000 Mg Tablet) 1,000 mg PO BID [facility] Last Admin: 02/03/23 09:19 Dose: 1,000 mg Documented By: JOAQUIN Levothyroxine Sodium (Levothyroxine Sodium 88 Mcg Tablet) 88 mcg PO DAILY@0630 [facility] Last Admin: 02/03/23 05:08 Dose: 88 mcg Documented By: KATHARINE Lidocaine (Lidocaine 4 % Patch Adh..Patch) 1 patch TRANSDERMA DAILY [facility] Last Admin: 02/03/23 09:20 Dose: 1 patch Documented By: JOAQUIN Lidocaine (Lidocaine 4 % Patch Adh..Patch) 1 patch TRANSDERMA DAILY [facility]; Protocol Last Admin: 02/03/23 09:30 Dose: Not Given Documented By: JOAQUIN Non-Admin Reason: Duplicate Order Lisinopril (Lisinopril 5 Mg Tablet) 5 mg PO DAILY [facility]; Protocol Last Admin: 02/03/23 09:19 Dose: 5 mg Documented By: JOAQUIN Loratadine (Loratadine 10 Mg Tablet) 10 mg PO DAILY [facility] Last Admin: 02/03/23 09:19 Dose: 10 mg Documented By: JOAQUIN Magnesium Oxide (Magnesium Oxide 400 Mg Tablet) 400 mg PO DAILY [facility] Last Admin: 02/03/23 09:19 Dose: 400 mg Documented By: JOAQUIN Omeprazole (Omeprazole 20 Mg Capsule.Dr) 20 mg PO BID@0630,1630 [facility] Last Admin: 02/03/23 05:08 Dose: 20 mg Documented By: KATHARINE Tramadol HCl (Tramadol Hcl 50 Mg Tablet) 25 mg PO Q6H PRN PRN Reason: Pain, Mild (Pain Scale 1-3) Last Admin: 02/01/23 03:55 Dose: 25 mg Documented By: BRIEN Urea (Urea 15 Gm Powder) 30 gm PO BID [facility] Last Admin: 02/03/23 09:20 Dose: 30 gm Documented By: JOAQUIN Labs 01/28/23 22:32 02/03/23 08:26 Labs: Laboratory Results - last 24 hr 02/03/23 08:26 Anion Gap 12 Estim Creat Clear Calc 55.6 Estimated GFR > 60 Random Glucose 110 Calcium 9.7 Assessment and Plan (1) Acute hyponatremia: Status: Acute Plan 87-year-old female with past medical history of hypertension, hypercholesterolemia, GERD, CVA, hypothyroid, DVT of left leg, seizure disorder admitted for management of hyponatremia. 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 Depakote, Bactrim, Lisinopril, ASA, PPI held. normal TSH, cortisol levels normal. sodium levels in 129 nephro eval noted-continue fluid restrictions,urea moniter bmp . HTN:continue lisinopril hypothyriodism: continue levothyroxine, fall: hip,knee xray,head ct -seems fine Pt eval. oob turn,incentive tushar,chest physio. seizure dis: continue ativan ,on keppra now neurochecks ,hold depakote shoulder pain -seems likely due to arthritis lower back pain-arthritis pain meds ,lidocaine patch dvt porphyalx: s/c heaprin ongoing hospitlisation need :hyponatremia- renal function and electrolytes monitering Quality Stroke Does the patient have a stroke diagnosis?: No VTE Prior VTE?: No VTE Risk Level:: Medical - moderate - high VTE Device Contraindication: N/A - Device Ordered VTE Drug Contraindication: N/A - Med Ordered
[2023-02-03] MEDS: traMADoL HCL 50 MG TABLET 25 MG PO (20:09)
[2023-02-04 03:49] VITALS: BP 117/64; PULSE 87; RESP 18; TEMP 36.1; O2SAT 95
[2023-02-04] MEDS: Levothyroxine Sodium 88 MCG TABLET PO (05:03)
[2023-02-04] MEDS: Omeprazole 20 MG CAPSULE.DR PO (05:03)
[2023-02-04] MEDS: Heparin Sodium,Porcine 5,000 UNIT/ML VIAL 5000 UNIT SUBCUT (05:04)
[2023-02-04 07:35] VITALS: BP 126/59; PULSE 84; RESP 20; TEMP 36.3; O2SAT 96
[2023-02-04] MEDS: Fluticasone/Vilanterol 100/25 BLST.W.DEV 1 PUFF INHALE (07:35)
[2023-02-04 07:38] VITALS: PULSE 84; RESP 16; O2SAT 96
--- NOTE | 2023-02-04 08:34 | P.PNNP_ITS ---
Subjective Subjective Date of Service: 02/04/23 Interval history: no labs drawn / resulted today Physical Exam 2 Vital Signs: Vital Signs: Last Vital Signs Temp 97.3 F 02/04/23 07:35 Pulse 84 02/04/23 07:38 Resp 16 02/04/23 07:38 BP 126/59 L 02/04/23 07:35 Pulse Ox 96 02/04/23 07:35 O2 Del Method Room Air 02/04/23 07:35 BMI result Body Mass Index 23.8 Const: Orientation/consciousness: patient oriented x3 (answering appropriately.) Resp: Auscultation: clear to auscultation bilaterally (normal work of breathing, no accessory muscle use) Cardio: Jugular venous distension: no JVD Rate: regular rate Rhythm: r egular rhythm GI: Palpation (GI): Soft to palpation (nondistended.) Neuro: General: patient oriented x3 (answering appropriately.) Objective Data Labs 01/28/23 22:32 02/03/23 08:26 Procedures Date of Service Date of Service: 02/04/23 Assessment & Plan Assessment and plan (1) Acute hyponatremia: Status: Acute (2) Fall: Status: Acute (3) Hypertension: Status: Acute (4) Hypothyroid: Status: Acute (5) Seizure disorder: Status: Acute Plan classic low solute intake hyponatremia 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 Progress Note: Quality Stroke Does the patient have a stroke diagnosis?: No
[2023-02-04 10:08] LABS: Anion Gap 16 (12-20); Blood Urea Nitrogen 62 mg/dL (9-16); Calcium 9.9 mg/dL (8.4-10.2); Carbon Dioxide 25 mmol/L (22-29); Chloride 97 mmol/L (96-108); Creatinine Clr Calc Pharmacy 44.5; Estimated Glomerular Filt Rate > 60; Glucose Random 148 mg/dL (60-115); Potassium 4.4 mmol/L (3.3-5.1); Sodium 134 mmol/L (135-145)
[2023-02-04] MEDS: Loratadine 10 MG TABLET PO (10:10)
[2023-02-04] MEDS: Lidocaine 4 % Patch ADH..PATCH 1 PATCH TRANSDERMA ×2 (10:10)
[2023-02-04] MEDS: Acetaminophen 325 MG TABLET 975 MG PO (10:11)
[2023-02-04] MEDS: Magnesium Oxide 400 MG TABLET PO (10:11)
[2023-02-04] MEDS: levETIRAcetam 1,000 MG TABLET 1000 MG PO (10:11)
[2023-02-04] MEDS: lisinopriL 5 MG TABLET PO (10:11)
[2023-02-04] MEDS: traMADoL HCL 50 MG TABLET 25 MG PO (11:09)
[2023-02-04] MEDS: guaiFEN/Codeine SF 200/20/10ML 10 ML LIQUID PO (11:12)
--- NOTE | 2023-02-04 11:53 | PM.DS ---
DS: Providers Provider Date of Service: 02/04/23 Date of admission: 01/29/23 02:01 Date of discharge: 02/04/23 Primary care physician: Marie Villanueva MD Consults: 01/29/23 07:32 Consult to Nephrology Routine Consulting Provider: Vernon Diaz Reason for consultation: Hyponatremia Has provider been notified: No Attending physician on discharge: Raleigh Shah Discharging clinician: Raleigh Shah DS: Diagnosis Discharge Diagnosis (1) Acute hyponatremia: Status: Acute (2) Fall: Status: Acute (3) Hypertension: Status: Acute (4) Hypothyroid: Status: Acute (5) Seizure disorder: Status: Acute DS: Summary Hospital Course Hospital Course: 87-year-old female with past medical history of hypertension, hypercholesterolemia, GERD, CVA, hypothyroid, DVT of left leg, seizure disorder, cholelithiasis, obesity,? anxiety, gout? who was brought to the emergency department via EMS for evaluation after a fall without loss of consciousness. According to her daughter,? she has been confused for the past 2 or 3 days. She was started on Bactrim for urinary tract infection and her anti-hypertensive was changed from amlodipine to lisinopril about a week ago. Her daughter also states that she has been experiencing intermittent headaches, generalized weakness, and a few episodes of vomiting. On arrival to the emergency room, the patient?s blood pressure was 176/74, heart rate 73, temp 97.8, with O2 sat 96% on room air.? Laboratory data significant for ? Sodium 120, chloride 90, CO2 20,? BUN 11, creatinine 0.85, ? glucose 94, serum osmolality 254,? urine osmo 201, urine sodium 48,? urine specific gravity < 1.005.? Imaging:? CT/CT head/brain wo IV con: HEAD: Limited evaluation due to motion artifact. No? appreciable acute intracranial findings. CERVICAL SPINE: No acute findings identified. Severe degenerative changes as noted above. XR/XR hip RT w PEL1V: No acute findings identified. XR/XR knee RT 4V: No acute findings identified. Total knee arthroplasty components in anatomic alignment. The patient was not given any medications in the emergency room.? Hospital course: Patient was admitted to the hospital because of falling down and hyponatremia: Hyponatremia workup done, medications including Depakote, Bactrim, losartan stopped, Hyponatremia possibly related to low solute SIADH. Patient hyponatremia seems to be improved with fluid restrictions as well as urea administration. Patient's sodium improved to 134. Patient was advised fluid restriction to 1.5 liter/day upon discharge. Her seizure medication change Depakote to Keppra. Blood pressure is stable without losartan, monitor BMP out patiently, further use of losartan outpatient as per PCP and please get Nephro evaluation before starting losartan. Follow-up BMP closely. plan: started on keppra 1000mg po bid Blood pressure is stable without losartan, monitor BMP out patiently, further use of losartan outpatient as per PCP and please get Nephro evaluation before starting losartan. avoid mediactions which can cause hyponatremia Follow-up BMP closely. follow with pcp and nephrology outpatient. Time Attestation Discharge coordination time: Greater than 30 minutes Quality: Safe Use of Opioids Does Pt have an Active Cancer Diagnosis on the Problem List?: No Quality: Stroke Does the patient have a stroke diagnosis?: No Physical Exam Vital Signs: Vital Signs: Last Vital Signs Temp 97.3 F 02/04/23 07:35 Pulse 84 02/04/23 07:38 Resp 16 02/04/23 07:38 BP 126/59 L 02/04/23 07:35 Pulse Ox 96 02/04/23 07:35 O2 Del Method Room Air 02/04/23 07:35 BMI result Body Mass Index 23.8 Appearance: Alert.? Oriented X3.? cvs: rrr, [id number] . res: clear to auscultation ,no rhonchii or wheezing abd: no rebound or guarding ,nt, bs present. ext pulses present , no cyanosis. MS -lower back pain somewhat improving neuro: axo3 , nonfocal. DS: Data Data Completed and Pending Labs on day of discharge: Laboratory Results - last 24 hr 02/04/23 09:30 Hold Purple Top SEE NOTE Sodium 134 L Potassium 4.4 Chloride 97 Carbon Dioxide 25 Anion Gap 16 BUN 62 H Creatinine 0.85 Estim Creat Clear Calc 44.5 Estimated GFR > 60 Random Glucose 148 H Calcium 9.9 Imaging Chest x-ray: Radiologist's impression: ITS Impressions Cervical Spine CT 01/28/23 23:48 IMPRESSION: HEAD: Limited evaluation due to motion artifact. No no appreciable acute intracranial findings. CERVICAL SPINE: No acute findings identified. Severe degenerative changes as noted above. Head CT 01/28/23 23:48 IMPRESSION: HEAD: Limited evaluation due to motion artifact. No no appreciable acute intracranial findings. CERVICAL SPINE: No acute findings identified. Severe degenerative changes as noted above. Hip/Pelvis X-Ray 01/29/23 01:26 IMPRESSION: No acute findings identified. Knee X-Ray 01/29/23 01:26 IMPRESSION: No acute findings identified. Total knee arthroplasty components in anatomic alignment. Humerus X-Ray 01/31/23 16:17 IMPRESSION: Arthritis at the right shoulder joint. Chest X-Ray 02/01/23 17:37 IMPRESSION: 1. Unremarkable chest exam. 2. Moderate levoscoliosis with degenerative disc changes virtually at every disc level with moderate spondylosis. No acute fracture seen. There is mild lateral subluxation of several lumbar vertebrae in the mid lumbar spine. Lumbar Spine X-Ray 02/01/23 17:37 IMPRESSION: 1. Unremarkable chest exam. 2. Moderate levoscoliosis with degenerative disc changes virtually at every disc level with moderate spondylosis. No acute fracture seen. There is mild lateral subluxation of several lumbar vertebrae in the mid lumbar spine. Hip X-Ray 02/03/23 14:43 IMPRESSION: Degenerative changes but no acute fracture or dislocation. Discharge Plan Discharge Anticipated Discharge Date/Time: 02/04/23 11:16 Patient Disposition: Home Health Service Discharge Diagnosis: hyponatremia Referrals: [facility] [Outside] - 1 Day (HOME PHYSICAL THERAPY) Po,Marie Renner MD [Primary Care Provider] - 1 Week Discharge Medications: New acetaminophen 325 mg Tablet 975 mg PO TID PRN (Reason: pain) Qty: 10 0RF tramadol 50 mg Tablet 25 mg PO Q6H PRN (Reason: Pain, Mild (Pain Scale 1-3)) Qty: 4 0RF guaifenesin 100 mg/5 mL Liquid 100 mg PO Q4H PRN (Reason: Cough) Qty: 100 0RF levetiracetam 1,000 mg Tablet 1,000 mg PO BID Qty: 60 0RF Continued omeprazole 20 mg capsule,delayed release(DR/EC) 20 mg PO BID Qty: 180 2RF lorazepam 1 mg tablet 0.5 mg PO DAILY PRN (Reason: anxiety) 90 Days Qty: 45 1RF meloxicam 15 mg tablet 15 mg PO DAILY Qty: 30 2RF lisinopril 5 mg tablet 5 mg PO DAILY Myrbetriq 25 mg tablet extended release 24 hr 25 mg PO DAILY aspirin 81 mg Tablet,Delayed Release (Dr/Ec) 81 mg PO DAILY levothyroxine 88 mcg tablet 88 mcg PO DAILY 90 Days Qty: 90 2RF lidocaine [Lidoderm] 5 % adhesive patch,medicated 1 patch topical DAILY Qty: 30 0RF Rx Instructions: leave on most painful area for up to 12 hrs loratadine 10 mg tablet 10 mg PO DAILY Qty: 30 5RF magnesium oxide 400 mg magnesium capsule 400 mg PO DAILY Qty: 90 1RF Discontinued losartan 25 mg tablet 25 mg PO DAILY Qty: 30 3RF Discharge Orders: Discharge Order (Routine); Ordered 02/04/23 Ordered By: Raleigh Shah Diet: Advance to usual diet Activity on Discharge: As tolerated Stand Alone Forms: Patient Portal Discharge page Other Ambulatory Orders: Basic Metabolic Panel (Routine) Timeframe: 1 Week Facility: [facility] - Location: Laboratory Ordered By: Raleigh Shah Care Plan Goals: Patient was admitted to the hospital because of falling down and hyponatremia: Hyponatremia workup done, medications including Depakote, Bactrim, losartan stopped, Hyponatremia possibly related to low solute SIADH. Patient hyponatremia seems to be improved with fluid restrictions as well as urea administration. Patient's sodium improved to 134. Patient was advised fluid restriction to 1.5 liter/day upon discharge. Her seizure medication change Depakote to Keppra. Blood pressure is stable without losartan, monitor BMP out patiently, further use of losartan outpatient as per PCP and please get Nephro evaluation before starting losartan. Follow-up BMP closely. Health Concerns: As above. Plan of Treatment: As above. Assessment: As above.
--- NOTE | 2023-02-04 11:59 | MHC.CM.PN ---
order for home with home-health service. [facility] already following; notified them that Pt. is D/C'ing home today. Requested they sign on to service jessica.
--- NOTE | 2023-02-04 12:01 | W.MHC.F2F ---
Service Date Service Date: 02/04/23 Encounter Date of encounter: 02/04/23 Encounter: Hyponatremia Reasons for Services Signs and symptoms assessed: if new symptoms generalised weakness Reason for physical therapy: home safety and mobility, therapeutic exercises, restore joint function, gait/transfer training, assess need for DME, ADL training, energy conservation and other MD Overseeing Care: Marie Villanueva Homebound: Leaving the home is medically contraindicated at this time without the asist of a device and/or another person due th the listed conditions above and below. Reason homebound: weakness related to hospital stay Homebound supporting statement: Patient is generalized weak -need help with generalized weakness possible addition stay with PT, labs ,appointment. Certification: Based on the above findings, I certify that this patient is confined to the home and needs intermittent care home care, physical therapy and/or speech therapy, or continues to need occupational therapy. The patient is under my care, and I have initiated the establishment of the plan of care. The patient will be followed by a physician who will periodically review the plan of care. Time Spent With Patient Time: Total time managing care of this patient today ____ minutes.
--- NOTE | 2023-02-04 12:38 | MHC.CM.PN ---
Reviewed D/C plan w/Pt.'s daughter who is in agreement with plan.
--- NOTE | 2023-02-04 12:49 | P.F2F_ITS ---
Service Date Service Date: 02/04/23 Encounter Date of encounter: 02/04/23 Encounter: Hyponatremia Reasons for Services Signs and symptoms assessed: Fall, hyponatremia Reason for half-way: medication management, medication treatment and teach disease management Reason for physical therapy: home safety and mobility, therapeutic exercises, restore joint function, gait/transfer training, assess need for DME, ADL training, energy conservation and other MD Overseeing Care: Marie Villanueva Homebound: Leaving the home is medically contraindicated at this time without the asist of a device and/or another person due th the listed conditions above and below. Reason homebound: weakness related to hospital stay Homebound supporting statement: Patient is generalized weak ,has multiple comorbidities-need help with generalized weakness possible addition stay with PT, labs ,appointment. Certification: Based on the above findings, I certify that this patient is confined to the home and needs intermittent half-way care, physical therapy and/or speech therapy, or continues to need occupational therapy. The patient is under my care, and I have initiated the establishment of the plan of care. The patient will be followed by a physician who will periodically review the plan of care. Time Spent With Patient Time: Total time managing care of this patient today ____ minutes.
== END 2023-02-04 13:50 | disposition home health service (06) | DRG 645 ==
LOC: HO.ED 01-29 01:42 → HO.EDOVER 01-29 02:14 → HO.ICU 01-29 02:25 → HO.IMC 01-29 07:15
PROVIDERS: Internal Medicine Cardiovascular Disease; Internal Medicine Nephrology; Nurse Practitioner Family; Admitting Provider Nurse Practitioner Family; Emergency Provider Internal Medicine; PCP Internal Medicine; Visit Provider Internal Medicine
DX: E22.2 Syndrome of inappropriate secretion of antidiuretic hormone (principal); G40.909 Epilepsy, unspecified, not intractable, without status epilepticus; E03.9 Hypothyroidism, unspecified; T42.6X5A Adverse effect of other antiepileptic and sedative-hypnotic drugs, initial encounter; E78.00 Pure hypercholesterolemia, unspecified; I10 Essential (primary) hypertension; W19.XXXA Unspecified fall, initial encounter; M19.011 Primary osteoarthritis, right shoulder; Z20.822 Contact with and (suspected) exposure to COVID-19; Z86.718 Personal history of other venous thrombosis and embolism; Z87.440 Personal history of urinary (tract) infections; Z79.01 Long term (current) use of anticoagulants; Z79.82 Long term (current) use of aspirin; Z79.890 Hormone replacement therapy; Z79.899 Other long term (current) drug therapy
CPT/HCPCS: 36415; 70450; 71046; 72100; 72125; 73060; 73502; 73522; 73564; 80048; 80051; 80053; 81003; 82533; 82803; 83735; 83930; 83935; 84100; 84295; 84300; 84443; 85025; 87502; 87635; 94640; 97110; 97116; 97162; 99285; C1758; J1643; J1953

== ENCOUNTER → 2023-01-29 02:01 | Outpatient (BNV) | payer MEDICARE, SELFPAY | PROVIDERS: Admitting Provider Nurse Practitioner Family; Emergency Provider Internal Medicine; PCP Internal Medicine; Visit Provider Internal Medicine | DX: E87.1 Hypo-osmolality and hyponatremia (principal); I10 Essential (primary) hypertension; E03.9 Hypothyroidism, unspecified; G40.909 Epilepsy, unspecified, not intractable, without status epilepticus; W19.XXXA Unspecified fall, initial encounter | CPT/HCPCS: 99231; 99232; 99239; 99499; G0180 ==

== ENCOUNTER 2023-02-09 10:09 | Outpatient (AMB) | payer MEDICARE, SELFPAY ==
[2023-02-09 10:27] VITALS: BP 124/64; PULSE 73; O2SAT 98; BMI 28.0
--- NOTE | 2023-02-09 10:27 | MHC.PC.OV ---
Vital Signs 02/09/23 10:27 Height 5 ft Weight 143 lb 4.807 oz BMI 28.0 BP 124/64 Blood Pressure Location Lt brachial Position Sitting Pulse 73 Pulse Source Pulse Oximeter Pulse Oximetry (%) 98 Oxygen Delivery Method Room Air [place] [facility] [place]: Director Of Knowledge Management: Present Allergies hydrochlorothiazide Allergy (Unknown, Verified 02/09/23 10:28) Electrolyte abnormality oxycodone [OXYCODONE] Allergy (Unknown, Verified 02/09/23 10:28) VOMITTING,CONFUSION amlodipine Adverse Reaction (Intermediate, Verified 02/09/23 10:28) leg swelling losartan Adverse Reaction (Intermediate, Verified 02/09/23 10:28) hyponatremia Tobacco use date assessed: 06/09/22 Fall risk assessment: 1 Fall in past year Last assessed Fall Risk: 02/09/23 Dental Screening Dental Screen Date: 02/09/23 Did you have a dental visit in the last 12 months?: No Did you have a dental problem in the last 6 months where you did not have access to dental care?: No Was dental information given to patient?: Patient has dentist HPI HPI Comments History of Present Illness Details 87-year-old female past medical history significant for hypertension, hypercholesteremia, GERD, CVA, hypothyroid, seizure disorder, anxiety. Patient presents today for hospital discharge follow-up for confusion times 2-3 days and fall with out loss of consciousness, generalized weakness, headaches and a few episodes of vomiting. In the emergency room patient was hypertensive 176/74, Laboratory data significant for ? Sodium 120, chloride 90, CO2 20,? BUN 11, creatinine 0.85, ? glucose 94, serum osmolality 254,? urine osmo 201, urine sodium 48,? urine specific gravity < 1.005. Patient had CT of the head, C-spine completed no acute findings just degenerative changes as well as x-rays of right hip and pelvis, right knee and lumbar back negative for acute findings. Hyponatremia workup done Depakote, Bactrim and losartan. Hyponatremia possibly related to low solute SIADH. Sodium improved on fluid restriction. Patient advised to continue 1.5 L fluid restriction on discharge. Her Depakote was changed to Keppra. Recommended she follow-up with Nephrology prior to reinitiating patient on losartan. Nephrology consult entered. Patient reminded to get previously ordered blood work obtained to follow-up on sodium level. Patient also reports cervical neck pain and lumbar back pain likely related to degenerative changes speech advise can continue to take Tylenol and use Lidoderm patches as needed for pain. Patient also reports dysuria. Denies urinary frequency, hesitancy and flank pain. Patient states unable to urinate in office today, urinalysis ordered with reflex culture to further evaluate. Denies seizure activity. [facility] Medical History Left leg DVT Upper respiratory infection COVID-19 virus infection Burning with urination Buttock pain Status post fall Dog bite of right arm Adult general medical exam Screening for diabetes mellitus Impacted cerumen of both ears Facial lesion Overweight (BMI 25.0-29.9) Hip osteoarthritis T12 vertebral fracture Reactive airways dysfunction syndrome Pneumonia Cholelithiasis CVA (cerebral vascular accident) Obesity (BMI 30-39.9) Hypercholesterolemia Vitamin D deficiency Hypothyroid Seizure disorder Anxiety Gout GERD (gastroesophageal reflux disease) Psoriatic arthritis Hypertension Surgical History History of Mohs surgery for squamous cell carcinoma of skin History of cataract surgery History of colonoscopy History of knee replacement procedure of right knee History of left knee replacement Family History Father No problems noted. Mother Acute CVA (cerebrovascular accident) Diabetes Brother Cancer Daughter History of nephrectomy Son Heart disease Social History Household Members: Children Household Members Other:: Daughter (Katie) and son-in-law Housing: House Do you presently have visiting nurse or other home services: No Alcohol intake: never Patient Tobacco Use Status: Never used Tobacco e-Cigarette/Vaping Use: Never Used Second Hand Smoke Exposure: No service: No Current occupational status: retired Cognitive needs: No Hearing needs: Yes (hearing aides) Vision needs: No Questionnaire PHQ-9 Over the last 2 weeks, how often have you been bothered by any of the following problems? 1. Little interest or pleasure in doing things: not at all 2. Feeling down, depressed, or hopeless: not at all 3. Trouble falling or staying asleep, or sleeping too much: not at all 4. Feeling tired or having little energy: not at all 5. Poor appetite or overeating: not at all 6. Feeling bad about yourself - or that you are a failure or have let yourself or your family down: not at all 7. Trouble concentrating on things, such as reading the newspaper or watching television: not at all 8. Moving or speaking so slowly that other people could have noticed. Or the opposite - being so fidgety or restless that you have been moving around a lot more than usual: not at all 9. Thoughts that you would be better off or of hurting yourself in some way: not at all Total score: 0 Depression Screening Interpretation: Negative Depression Screening Done: Yes 27036 - PHQ-9 Billing: Yes Source: Developed by Drs. Satish Summers, Radha Honeycutt, Tani Gonzales and colleagues, with an educational milton from [email or web address]. Thrive Questionnaire Date Thrive assessed: 01/29/23 AUDIT C Alcohol Use Questionnaire (AUDIT-C) 1. How often do you have a drink containing alcohol?: Never 3. How often do you have six or more drinks on one occasion?: Never Total Score: 0 Score Reviewed/Action Taken: No HAZEL-7 AMB Questionnaire HAZEL-7 Date HAZEL - 7 assessed: 09/15/22 Source: Developed by Drs. Satihs Summers, Radha Honeycutt, Tani Gonzales and colleagues, with an educational milton from [email or web address]. Review of Systems Const Denies chills, Denies fatigue, Denies fever(s) and Denies poor appetite Eyes Denies no additional complaints ENT Reports Normal hearing present Card Denies chest pain, Denies syncope, Denies rapid heart rate and Denies dyspnea Resp Denies cough and Denies dyspnea GI Denies change in stool character, Denies constipation, Denies diarrhea, Denies nausea and Denies vomiting Denies urinary frequency, Denies dysuria and Denies urinary urgency Neuro Reports Normal hearing present, Denies confusion and Denies syncope Psych Denies confusion Endo Denies fatigue Physical exam (Primary Care) Vital Signs: Last Vital Signs Pulse 73 02/09/23 10:27 BP 124/64 02/09/23 10:27 Pulse Ox 98 02/09/23 10:27 Oxygen Delivery Method Room Air 02/09/23 10:27 BMI result Body Mass Index 28.0 Tobacco/Smoking Status: Tobacco use Status Tobacco use date assessed 06/09/22 02/09/23 10:29 Patient Tobacco Use Status Never used Tobacco 02/09/23 10:29 e-Cigarette/Vaping Use Never Used 02/09/23 10:29 PHQ-9: PHQ-9 Score PHQ-9: Total score 0 02/09/23 11:05 Depression Screening Interpretation: Negative Thrive Assessment: Date of Thrive Assessment Date Thrive assessed 01/29/23 02/09/23 10:29 Const General: No confusion Orientation/consciousness: No confusion HENMT Head: Yes normocephalic and Yes atraumatic Eyes Conjunctivae: conjunctivae normal Chest Chest palpation & inspection: normal inspection of the chest Resp Effort & Inspection: normal respiratory effort Auscultation: clear to auscultation bilaterally, no crackles, no rhonchi and no wheezes Cardio Rate: regular rate Rhythm: regular rhythm Heart sounds: S1 normal heart sound present and S2 normal heart sound present GI Inspection: Yes normal to inspection Neuro General: No confusion Cranial nerves: Yes Normal hearing present Extrem General: No edema Assessment and Plan Assessment & Plan (1) Acute hyponatremia: Code(s): E87.1 - Hypo-osmolality and hyponatremia Plan: Referral entered to Nephrology. Repeat sodium level ordered. Continue to follow fluid restriction. (2) Dysuria: Code(s): R30.0 - Dysuria Plan: Urinalysis ordered to further evaluate. (3) Hypertension: Code(s): I10 - Essential (primary) hypertension Qualifiers: Hypertension type: essential hypertension Qualified Code(s): I10 - Essential (primary) hypertension Plan: Continue on lisinopril 5 mg daily. Losartan discontinued during admission. Blood pressure below goal today in office. (4) Hospital discharge follow-up: Code(s): Z09 - Encounter for follow-up examination after completed treatment for conditions other than malignant neoplasm Plan Keep scheduled follow-up with PCP or follow-up sooner if needed. Orders: Orders UA CC w/rflx Micro + Cult Today R30.0 - Dysuria Comprehensive Met. Panel Today E87.1 - Hypo-osmolality and hyponatremia Referrals Nephrology Referral E87.1 - Hypo-osmolality and hyponatremia Medications: Refilled acetaminophen 975 mg (3 x 325 mg) PO TID PRN 10 tabs 0RF pain lidocaine 4% 1 patch topical DAILY PRN 10 ea 0RF pain (scale score 1-3) levetiracetam 1,000 mg PO BID 60 tabs 0RF Coding Level of Care Code Est Pt Level 4 (14511) Diagnoses Acute hyponatremia E87.1 Dysuria R30.0 Essential hypertension I10 Hypertension type: essential hypertension Hospital discharge follow-up Z09
== END 2023-02-09 11:24 | disposition home or self-care (01) ==
PROVIDERS: PCP Internal Medicine; Visit Provider Nurse Practitioner Family
DX: E87.1 Hypo-osmolality and hyponatremia (principal); R30.0 Dysuria; I10 Essential (primary) hypertension; Z09 Encounter for follow-up examination after completed treatment for conditions other than malignant neoplasm
CPT/HCPCS: 99214

== ENCOUNTER 2023-02-12 09:32 | Outpatient (REF) | payer MEDICARE, SELFPAY ==
[2023-02-12 11:05] LABS: Alanine Aminotransferase 9 U/L (0-31); Albumin Level 3.8 g/dL (3.5-5.0); Alkaline Phosphatase 86 U/L (39-117); Anion Gap 11 (12-20); Aspartate Amino Transferase 11 U/L (5-31); Bilirubin Total 0.4 mg/dL (0.0-1.0); Blood Urea Nitrogen 10 mg/dL (9-16); Calcium 9.3 mg/dL (8.4-10.2); Carbon Dioxide 25 mmol/L (22-29); Chloride 101 mmol/L (96-108); Estimated Glomerular Filt Rate > 60; Glucose Random 86 mg/dL (60-115); Potassium 4.3 mmol/L (3.3-5.1); Sodium 133 mmol/L (135-145); Total Protein 6.5 g/dL (6.5-8.0)
== END 2023-02-12 09:33 | disposition home or self-care (01) ==
LOC: HO.LAB 09:32
PROVIDERS: Absent Provider Internal Medicine; PCP Internal Medicine; Visit Provider Nurse Practitioner Family
DX: E87.1 Hypo-osmolality and hyponatremia (principal)
CPT/HCPCS: 36415; 80053

== ENCOUNTER 2023-02-13 16:59 | Outpatient (REF) | payer MEDICARE, SELFPAY ==
[2023-02-13 17:08] LABS: Appearance Urine Clear; Color Urine Yellow; Glucose Urine UA Negative (Negative); Leukocyte Esterase Urine Moderate (2+) (Negative); Nitrite Urine Negative (Negative); PH 6.5 (5.0-9.0); Specific Gravity - Urine <= 1.005 (1.005-1.025); UMIC TRIGGER UACC YES; Urine Blood Negative (Negative); Urine Ketones Negative (Negative); Urine Protein Negative (Neg-Trace)
[2023-02-13 17:11] LABS: Bacteria Urine None Seen (None Seen); Hyaline Casts Urine 0-2 /LPF (0-2); RBC Urine 0-2 /HPF (0-2); Squamous Epithelial Cell Urine 0-2 /HPF (0-2); UACC Culture Trigger YES; WBC Urine >50 /HPF (0-5)
== END 2023-02-13 17:00 | disposition home or self-care (01) ==
LOC: HO.LNP 16:59
PROVIDERS: Visit Provider Nurse Practitioner Family
DX: R30.0 Dysuria (principal)
CPT/HCPCS: 81001; 87086

== ENCOUNTER 2023-02-14 14:48 | Outpatient (AMB) | payer MEDICARE, SELFPAY ==
--- NOTE | 2023-02-14 15:14 | HO.NEPHOV_ITS ---
HPI HPI Comments History of Present Illness Details Patient seen in office for transfer of care to [facility] (as requested by family) 87-year-old female with hypertension and recurrent urinary tract infection who was recently admitted in the hospital following a fall without loss of consciousness. Prior to her hospital presentation she had been confused for 3-4 days. She was started on Bactrim for UTI at that time and her antihypertensive medication was changed from amlodipine to lisinopril. She also had been experiencing intermittent headaches, generalized weakness and a few episodes of vomiting. In the emergency room her blood pressure was 136/74 mm of Hg with a heart rate of 73 and oxygen saturation of 96% on room air. Her serum sodium was 120 with a serum glucose of 94, serum osmolality of 254, urine osmolality of 201, urine sodium of 48 and urine specific gravity of less than 1.005. She underwent a CAT scan of the head which did not show any appreciable acute intra cranial findings. Medications including Depakote, Bactrim, losartan stopped. 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 Hyponatremia improved with fluid restrictions as well as urea administration. Patient was advised fluid restriction to 1.5 liter/day upon discharge. Her seizure medication change Depakote to Keppra. She does not have any nausea, vomiting, diarrhea, pedal edema, shortness of breath, paroxysmal nocturnal dyspnea, orthopnea, abdominal swelling. She had been on asked in the past by other people to increase her fluid intake as she was getting recurrent UTIs. She has no new complaints at the time of this office visit. She was concerned about her recent switch from Depakote to Keppra. She was accompanied by her son. She does not have any urinary symptoms now. She is not taking any oral ur ea or salt tablets. She has no recent confusion, weakness, edema. Her recent sodium had improved. REPLACED BY [facility] Medical History Left leg DVT Upper respiratory infection COVID-19 virus infection Burning with urination Buttock pain Status post fall Dog bite of right arm Adult general medical exam Screening for diabetes mellitus Impacted cerumen of both ears Facial lesion Overweight (BMI 25.0-29.9) Hip osteoarthritis T12 vertebral fracture Reactive airways dysfunction syndrome Pneumonia Cholelithiasis CVA (cerebral vascular accident) Obesity (BMI 30-39.9) Hypercholesterolemia Vitamin D deficiency Hypothyroid Seizure disorder Anxiety Gout GERD (gastroesophageal reflux disease) Psoriatic arthritis Hypertension Surgical History History of Mohs surgery for squamous cell carcinoma of skin History of cataract surgery History of colonoscopy History of knee replacement procedure of right knee History of left knee replacement Family History Father No problems noted. Mother Acute CVA (cerebrovascular accident) Diabetes Brother Cancer Daughter History of nephrectomy Son Heart disease Social History Household Members: Children Household Members Other:: Daughter (Katie) and son-in-law Housing: House Do you presently have visiting nurse or other home services: No Alcohol intake: never Patient Tobacco Use Status: Never used Tobacco e-Cigarette/Vaping Use: Never Used Second Hand Smoke Exposure: No service: No Current occupational status: retired Cognitive needs: No Hearing needs: Yes (hearing aides) Vision needs: No Vital Signs 02/14/23 15:15 Weight 145 lb 8 oz BP 112/70 Blood Pressure Location Lt brachial Position Sitting Pulse 68 Pulse Source Pulse Oximeter Physical Exam Vital Signs: Last Vital Signs Pulse 68 02/14/23 15:15 BP 112/70 02/14/23 15:15 Const General: comfortable and no acute distress Orientation/consciousness: patient oriented x3 HEENT Head: Yes normocephalic Mouth: Normal oral and palatal mucosa present Eyes EOM: EOMs intact bilaterally Neck Neck: Yes supple Resp Auscultation: clear to auscultation bilaterally Cardio Jugular venous distension: no JVD Rate: regular rate GI Palpation (GI): Soft to palpation Auscultation: normal bowel sounds General: Yes no CVA tenderness Back/Spine/Pelvis Back: no CVA tenderness Skin General skin exam: no rashes or lesions noted Neuro General: patient oriented x3 and moves all extremities Extrem General: Yes no pedal edema Assessment & Plan Assessment & Plan (1) Acute hyponatremia: Code(s): E87.1 - Hypo-osmolality and hyponatremia (2) Hypertension: Code(s): I10 - Essential (primary) hypertension Qualifiers: Hypertension type: essential hypertension Qualified Code(s): I10 - Essential (primary) hypertension Plan Dulce had a euvolemic hyponatremia. She had mental status changes. Her weakness and mentation is back to baseline. She does not taking excessive amount of free water. She had been having excess salt in the food. She was on Depakote which has been changed to Keppra recently. Her serum sodium is acceptable. She has no history of uncontrolled hypothyroidism or adrenal insufficiency. She had urinary issues and was started on Myrbetriq. She is tolerating CASPER inhibitor well. Her renal functions are at baseline. She needs to maintain fluid restriction. There is no indication for any oral urea, demeclocycline or sodium chloride tablets. I did not make any medication changes today. Follow-up blood work ordered. All her and her son's questions were answered. Follow up given. Time spent during the encounter, retrieval of data and documentation 29 minutes Orders: Orders Osmolality Urine 02/14/23 E87.1 - Hypo-osmolality and hyponatremia Thyroid Stimulating Hormone 02/14/23 E87.1 - Hypo-osmolality and hyponatremia Blood Urea Nitrogen 02/14/23 E87.1 - Hypo-osmolality and hyponatremia Electrolytes 02/14/23 E87.1 - Hypo-osmolality and hyponatremia Calcium 02/14/23 E87.1 - Hypo-osmolality and hyponatremia Immunofixation Pnl, Serum 02/14/23 E87.1 - Hypo-osmolality and hyponatremia Sodium Urine Random 02/14/23 E87.1 - Hypo-osmolality and hyponatremia Osmolality, Serum 02/14/23 E87.1 - Hypo-osmolality and hyponatremia Uric Acid 02/14/23 E87.1 - Hypo-osmolality and hyponatremia Cortisol Random 02/14/23 E87.1 - Hypo-osmolality and hyponatremia Creatinine 02/14/23 E87.1 - Hypo-osmolality and hyponatremia Coding Level of Care Code New Pt Level 4 (08187) Diagnoses Acute hyponatremia E87.1 Essential hypertension I10 Hypertension type: essential hypertension
[2023-02-14 15:15] VITALS: BP 112/70; PULSE 68
== END 2023-02-14 15:59 | disposition home or self-care (01) ==
PROVIDERS: PCP Internal Medicine; Visit Provider Internal Medicine Nephrology
DX: E87.1 Hypo-osmolality and hyponatremia (principal); I10 Essential (primary) hypertension
CPT/HCPCS: 99204

== ENCOUNTER → 2023-02-14 14:48 | Outpatient (BNVA) | payer MEDICARE, SELFPAY | PROVIDERS: PCP Internal Medicine; Visit Provider Internal Medicine Nephrology | DX: E87.1 Hypo-osmolality and hyponatremia (principal); I10 Essential (primary) hypertension | CPT/HCPCS: 99202 ==

== ENCOUNTER 2023-03-08 14:26 | Outpatient (REF) | payer MEDICARE, SELFPAY ==
[2023-03-08 15:33] LABS: Osmolality, Serum 283 mosm/kg (281-305)
[2023-03-08 15:42] LABS: Anion Gap 10 (12-20); Blood Urea Nitrogen 8 mg/dL (9-16); Calcium 9.1 mg/dL (8.4-10.2); Carbon Dioxide 29 mmol/L (22-29); Chloride 101 mmol/L (96-108); Estimated Glomerular Filt Rate > 60; Potassium 3.6 mmol/L (3.3-5.1); Sodium 136 mmol/L (135-145); Uric Acid 5.7 mg/dL (2.4-5.7)
[2023-03-08 15:53] LABS: Cortisol Random 5.8 ug/dL
[2023-03-08 15:57] LABS: Thyroid Stimulating Hormone 0.49 uIU/mL (0.32-4.0)
[2023-03-13 14:19] LABS: IgA 191 mg/dL (70-320); IgG 1076 mg/dL (600-1540); IgM 83 mg/dL (50-300)
== END 2023-03-08 14:27 | disposition home or self-care (01) ==
LOC: HO.LAB 14:26
PROVIDERS: Visit Provider Internal Medicine Nephrology
DX: E87.1 Hypo-osmolality and hyponatremia (principal)
CPT/HCPCS: 36415; 80051; 82310; 82533; 82565; 82784; 83930; 84443; 84520; 84550; 86334

== ENCOUNTER 2023-03-09 | Outpatient (REF) | payer MEDICARE, SELFPAY ==
[2023-03-10 11:18] LABS: Appearance Urine Clear; Color Urine Yellow; Glucose Urine UA Negative (Negative); Leukocyte Esterase Urine Negative (Negative); Nitrite Urine Negative (Negative); PH 6.5 (5.0-9.0); Urine Blood Negative (Negative); Urine Ketones Negative (Negative); Urine Protein Negative (Neg-Trace)
[2023-03-10 11:29] LABS: Osmolality Urine 266 mosm/kg (373-1093)
== END 2023-03-09 00:01 | disposition home or self-care (01) ==
LOC: HO.LNP
PROVIDERS: Nurse Practitioner Family; Visit Provider Internal Medicine Nephrology
DX: R30.0 Dysuria (principal); E87.1 Hypo-osmolality and hyponatremia
CPT/HCPCS: 81003; 83935; 84300

== ENCOUNTER 2023-03-14 14:29 | Outpatient (AMB) | payer MEDICARE, SELFPAY ==
--- NOTE | 2023-03-14 14:33 | HO.NEPHOV ---
HPI HPI Comments History of Present Illness Details 87-year-old femal e with hypertensio n and recurrent ur inary tract infect ion who was recent ly admitted in the hospital followin g a fall without l oss of consciousne ss. Prior to her hospital presentat ion she had been c onfused for 3-4 da ys. She was start ed on Bactrim for UTI at that time a nd her antihyperte nsive medication w as changed from am lodipine to lisino pril. She also valdes d been experiencin g intermittent hea daches, generalize d weakness and a f ew episodes of vom iting. [place] [facility] [place] [place] her bl ood pressure was 1 36/74 mm of Hg wit h a heart rate of 73 and oxygen satu ration of 96% on r oom air. Her seru m sodium was 120 w ith a serum glucos e of 94, serum osm olality of 254, ur ine osmolality of 201, urine sodium of 48 and urine sp ecific gravity of less than 1.005. She underwent a CA T scan of the head which did not gentry w any appreciable acute intra crania l findings. Medica tions including De pakote, Bactrim, l osartan stopped. H yponatremia was th ought to be possib ly related to low solute intake and SIADH. Hyponatrem ia improved with f luid restrictions as well as urea ad ministration. Lena ent was advised fl uid restriction to 1.5 liter/day upo n discharge. Her s eizure medication change Depakote to Keppra. She does not have any naus ea, vomiting, diar nicola, pedal edema, shortness of emely th, paroxysmal noc turnal dyspnea, or thopnea, abdominal swelling. She valdes d been on asked in the past by other people to increas e her fluid intake as she was gettin g recurrent UTIs. She has no new co mplaints at the ti me of this office visit. She was a ccompanied by her son. She does not have any urinary symptoms now. She is not taking any oral urea or salt tablets. She has no recent confusi on, weakness, faustino a. Her recent sod ium had improved. [facility] Medical History Left leg DVT Upper respiratory infection COVID-19 virus infection Burning with urination Buttock pain Status post fall Dog bite of right arm Adult general medical exam Screening for diabetes mellitus Impacted cerumen of both ears Facial lesion Overweight (BMI 25.0-29.9) Hip osteoarthritis T12 vertebral fracture Reactive airways dysfunction syndrome Pneumonia Cholelithiasis CVA (cerebral vascular accident) Obesity (BMI 30-39.9) Hypercholesterolemia Vitamin D deficiency Hypothyroid Seizure disorder Anxiety Gout GERD (gastroesophageal reflux disease) Psoriatic arthritis Hypertension Surgical History History of Mohs surgery for squamous cell carcinoma of skin History of cataract surgery History of colonoscopy History of knee replacement procedure of right knee History of left knee replacement Family History Father No problems noted. Mother Acute CVA (cerebrovascular accident) Diabetes Brother Cancer Daughter History of nephrectomy Son Heart disease Social History Household Members: Children Household Members Other:: Daughter (Katie) and son-in-law Housing: House Do you presently have visiting nurse or other home services: No Alcohol intake: never Patient Tobacco Use Status: Never used Tobacco e-Cigarette/Vaping Use: Never Used Second Hand Smoke Exposure: No service: No Current occupational status: retired Cognitive needs: No Hearing needs: Yes (hearing aides) Vision needs: No Vital Signs 03/14/23 14:35 Height 5 ft Weight 143 lb 2 oz BMI 27.9 BP 132/80 Blood Pressure Location Rt brachial Position Sitting Pulse 76 Pulse Source Pulse Oximeter Pulse Oximetry (%) 98 Oxygen Delivery Method Room Air Physical Exam Vital Signs: Last Vital Signs Pulse 76 03/14/23 14:35 BP 132/80 03/14/23 14:35 Pulse Ox 98 03/14/23 14:35 Oxygen Delivery Method Room Air 03/14/23 14:35 BMI result Body Mass Index 27.9 Const General: comfortable and no acute distress Orientation/consciousness: patient oriented x3 HEENT Head: Yes normocephalic Mouth: Normal oral and palatal mucosa present Eyes EOM: EOMs intact bilaterally Neck Neck: Yes supple Resp Auscultation: clear to auscultation bilaterally Cardio Jugular venous distension: no JVD Rate: regular rate GI Palpation (GI): Soft to palpation Auscultation: normal bowel sounds General: Yes no CVA tenderness Back/Spine/Pelvis Back: no CVA tenderness Skin General skin exam: no rashes or lesions noted Neuro General: patient oriented x3 and moves all extremities Extrem General: Yes no pedal edema Assessment & Plan Assessment & Plan (1) Acute hyponatremia: Code(s): E87.1 - Hypo-osmolality and hyponatremia (2) Hypertension: Code(s): I10 - Essential (primary) hypertension Qualifiers: Hypertension type: essential hypertension Qualified Code(s): I10 - Essential (primary) hypertension Plan Dulce had a euvolemic hyponatremia. She had mental status changes which is resolved. Her weakness and mentation is back to baseline. She does not taking excessive amount of free water. She was on Depakote which has been changed to Keppra recently. Her serum sodium is normal now. She has no history of uncontrolled hypothyroidism or adrenal insufficiency. She had urinary issues and was started on Myrbetriq. She is tolerating CASPER inhibitor well. Her renal functions are at baseline. She needs to maintain fluid restriction. There is no indication for any oral urea, demeclocycline or sodium chloride tablets. I did not make any medication changes today. Follow-up blood work ordered. All her and her son's questions were answered. Follow up given. Coding Level of Care Code Est Pt Level 3 (11748) Diagnoses Acute hyponatremia E87.1 Essential hypertension I10 Hypertension type: essential hypertension Results Reviewed Nephrology Results: Hgb 12.2 g/dl (12.0-16.0) 01/28/23 WBC 6.1 X10*3/uL (4.8-10.8) 01/28/23 Plt Count 153 X10*3/uL (160-400) L 01/28/23 Sodium 136 mmol/L (135-145) 03/08/23 Potassium 3.6 mmol/L (3.3-5.1) 03/08/23 Chloride 101 mmol/L (96-108) 03/08/23 Carbon Dioxide 29 mmol/L (22-29) 03/08/23 BUN 8 mg/dL (9-16) L 03/08/23 Creatinine 0.75 mg/dL (0.5-1.4) 03/08/23 Calcium 9.1 mg/dL (8.4-10.2) 03/08/23 Phosphorus 3.4 mg/dL (2.7-4.5) 01/29/23 Urine Protein Negative mg/dL (Neg-Trace) 03/09/23
[2023-03-14 14:35] VITALS: BP 132/80; PULSE 76; O2SAT 98; BMI 27.9
== END 2023-03-14 14:59 | disposition home or self-care (01) ==
PROVIDERS: PCP Internal Medicine; Visit Provider Internal Medicine Nephrology
DX: E87.1 Hypo-osmolality and hyponatremia (principal); I10 Essential (primary) hypertension
CPT/HCPCS: 99213

== ENCOUNTER → 2023-03-14 14:29 | Outpatient (BNVA) | payer MEDICARE, SELFPAY | PROVIDERS: PCP Internal Medicine; Visit Provider Internal Medicine Nephrology | DX: I10 Essential (primary) hypertension (principal); E87.1 Hypo-osmolality and hyponatremia | CPT/HCPCS: 99212 ==

== ENCOUNTER 2023-07-02 16:38 | Outpatient (AMB) | payer MEDICARE, SELFPAY ==
--- NOTE | 2023-07-02 16:46 | A.OFFPC_ITS ---
Vital Signs 07/02/23 16:47 Height 5 ft Weight 141 lb BMI 27.5 BP 142/90 H Blood Pressure Location Lt brachial Position Sitting Pulse 80 Pulse Source Pulse Oximeter Pulse Oximetry (%) 87 L Oxygen Delivery Method Room Air Intake Visit Reasons: Hypertension Segmental Paving Supervisor Required: No Allergies hydrochlorothiazide Allergy (Unknown, Verified 07/02/23 16:47) Electrolyte abnormality oxycodone [OXYCODONE] Allergy (Unknown, Verified 07/02/23 16:47) VOMITTING,CONFUSION amlodipine Adverse Reaction (Intermediate, Verified 07/02/23 16:47) leg swelling lisinopril Adverse Reaction (Intermediate, Unverified 07/02/23 17:34) cough losartan Adverse Reaction (Intermediate, Verified 07/02/23 16:47) hyponatremia Medication List - Last Reconciled 07/02/23 by Marie Villanueva MD acetaminophen 975 mg (3 x 325 mg) PO TID PRN aspirin 81 mg PO DAILY guaifenesin 100 mg (5 mL) PO Q4H PRN levetiracetam 1,000 mg PO BID levothyroxine 88 mcg PO DAILY 90 days lidocaine 5% (Lidoderm) 1 patch topical DAILY lidocaine 4% 1 patch topical DAILY PRN loratadine 10 mg PO DAILY lorazepam 0.5 mg (1/2 x 1 mg) PO DAILY PRN 90 days magnesium oxide 400 mg PO DAILY meloxicam 15 mg PO DAILY metoprolol succinate ER 25 mg PO DAILY mirabegron ER (Myrbetriq) 25 mg PO DAILY omeprazole 20 mg PO BID tramadol 25 mg (1/2 x 50 mg) PO Q6H PRN Tobacco use date assessed: 07/02/23 Fall risk assessment: No Falls in past year Last assessed Fall Risk: 07/02/23 Dental Screening Dental Screen Date: 02/09/23 HPI Hypertension HPI Details 87-year-old female with a history of hyp ertension hyponatremia coming in for follow-up. Last seen in January 2023. Patient was sent to Nephrology diagnosis of euvolemic hyponatremia was on Depakote which has been changed to Keppra advised to maintain fluid restriction. On an CASPER inhibitor on Myrbetriq. complains fo cough and was told ? lisinopril. will change [facility] Medical History Left leg DVT Upper respiratory infection COVID-19 virus infection Burning with urination Buttock pain Status post fall Dog bite of right arm Adult general medical exam Screening for diabetes mellitus Impacted cerumen of both ears Facial lesion Overweight (BMI 25.0-29.9) Hip osteoarthritis T12 vertebral fracture Reactive airways dysfunction syndrome Pneumonia Cholelithiasis CVA (cerebral vascular accident) Obesity (BMI 30-39.9) Hypercholesterolemia Vitamin D deficiency Hypothyroid Seizure disorder Anxiety Gout GERD (gastroesophageal reflux disease) Psoriatic arthritis Hypertension Surgical History History of Mohs surgery for squamous cell carcinoma of skin History of cataract surgery History of colonoscopy History of knee replacement procedure of right knee History of left knee replacement Family History Father No problems noted. Mother Acute CVA (cerebrovascular accident) Diabetes Brother Cancer Daughter History of nephrectomy Son Heart disease Social History (System 05/17/23 @ 15:17 by Kristen Rico) Household Members: Children Household Members Other:: Daughter (Katie) and son-in-law Housing: House Do you presently have visiting nurse or other home services: No Alcohol intake: never Patient Tobacco Use Status: Never used Tobacco e-Cigarette/Vaping Use: Never Used Second Hand Smoke Exposure: No service: No Current occupational status: retired Cognitive needs: No Hearing needs: Yes (hearing aides) Vision needs: No Questionnaire Thrive Questionnaire Date Thrive assessed: 07/02/23 I am a: Patient What is your living situation today?: I have a steady place to live Within the past 12 months, did the food you bought not last and you didn't have the money to get more?: Never true Within the past 12 months, did you worry whether your food would run out before you got money to buy more?: Never true Do you have trouble paying for medicines?: No Do you have trouble getting transportation to medical appointments?: No Do you have trouble paying your heating and electricity bill?: No Do you have trouble taking care of your child, family member or friend?: No Do you have trouble with day-to-day activities such as bathing, preparing meals, shopping, managing finances, etc.?: No Are you currently unemployed and looking for a job?: No Are you interested in more education?: No Please select the resources that you would like help with: None Currently or been in a relationship where the following occur: no concerns reported THRIVE Score: 0 AUDIT C Alcohol Use Questionnaire (AUDIT-C) 1. How often do you have a drink containing alcohol?: Never 3. How often do you have six or more drinks on one occasion?: Never Total Score: 0 Score Reviewed/Action Taken: No HAZEL-7 AMB Questionnaire HAZEL-7 Date HAZEL - 7 assessed: 09/15/22 Source: Developed by Drs. Satish Summers, Radha Honeycutt, Tani Gonzales and colleagues, with an educational milton from [employer]. Physical exam (Primary Care) Vital Signs: Last Vital Signs Pulse 80 07/02/23 16:47 BP 142/90 H 07/02/23 16:47 Pulse Ox 87 L 07/02/23 16:47 Oxygen Delivery Method Room Air 07/02/23 16:47 BMI result Body Mass Index 27.5 Tobacco/Smoking Status: Tobacco use Status Tobacco use date assessed 07/02/23 07/02/23 16:53 Patient Tobacco Use Status Never used Tobacco 07/02/23 16:47 e-Cigarette/Vaping Use Never Used 07/02/23 16:47 Thrive Assessment: Date of Thrive Assessment Date Thrive assessed 07/02/23 07/02/23 16:53 Currently or been in a relationship where the following occur: no concerns reported Const General: alert; No acute distress Eyes Conjunctivae: conjunctivae normal Resp Auscultation: clear to auscultation bilaterally Cardio Rate: regular rate Rhythm: regular rhythm GI Inspection: Yes normal to inspection Extrem General: Yes normal to inspection and No edema Assessment and Plan Assessment & Plan (1) Acute hyponatremia: Code(s): E87.1 - Hypo-osmolality and hyponatremia Plan: Patient has met with Nephrology and did water restriction as well as change in seizure medication (2) Hypertension: Code(s): I10 - Essential (primary) hypertension Qualifiers: Hypertension type: essential hypertension Qualified Code(s): I10 - Essential (primary) hypertension Plan: Continue with blood pressure medication. Decrease salt intake and exercise on lisinopril 5 mg once a day (3) GERD (gastroesophageal reflux disease): Comment: EGD Dr. Mireles April 2018 erosive esophagitis Code(s): K21.9 - Gastro-esophageal reflux disease without esophagitis Qualifiers: Esophagitis presence: without esophagitis Qualified Code(s): K21.9 - Gastro-esophageal reflux disease without esophagitis Plan: Avoid the foods that causes that usually spicy foods, tomato products, juices, coffee, soda and foods that your sensitive to. After eating do not lie down, allow 3-4 hours before in lie down. And keep the head of bed above 30 degrees to avoid the acid from going up. (4) Seizure disorder: Comment: 2012 partial complex Code(s): G40.909 - Epilepsy, unspecified, not intractable, without status epilepticus Plan: Changed seizure medication to Keppra (5) Hypothyroid: Code(s): E03.9 - Hypothyroidism, unspecified Qualifiers: Hypothyroidism type: acquired Qualified Code(s): E03.9 - H ypothyroidism, unspecified Plan: Continue with thyroid medication (6) Hypercholesterolemia: Code(s): E78.00 - Pure hypercholesterolemia, unspecified Plan: Avoid fried foods, chicken skin, eggs, butter margarine, pastries and meat. Be it pork or beef they have a lot of cholesterol LDL goal of less than 130 and triglyceride of less than 150 (7) Urinary incontinence: Code(s): R32 - Unspecified urinary incontinence Plan: Patient has been placed on Myrbetriq Medications: New metoprolol succinate ER 25 mg PO DAILY 30 tabs 3RF I10 - Essential (primary) hypertension Coding Level of Care Code Est Pt Level 4 (54810) Diagnoses Acute hyponatremia E87.1 Essential hypertension I10 Hypertension type: essential hypertension Gastroesophageal reflux disease without esophagitis K21.9 Esophagitis presence: without esophagitis Seizure disorder G40.909 Acquired hypothyroidism E03.9 Hypothyroidism type: acquired Hypercholesterolemia E78.00 Urinary incontinence R32
[2023-07-02 16:47] VITALS: BP 142/90; PULSE 80; O2SAT 87; BMI 27.5
== END 2023-07-02 17:44 | disposition home or self-care (01) ==
PROVIDERS: PCP Internal Medicine; Visit Provider Internal Medicine
DX: E87.1 Hypo-osmolality and hyponatremia (principal); G40.909 Epilepsy, unspecified, not intractable, without status epilepticus; I10 Essential (primary) hypertension; K21.9 Gastro-esophageal reflux disease without esophagitis; E03.9 Hypothyroidism, unspecified; E78.00 Pure hypercholesterolemia, unspecified; R32 Unspecified urinary incontinence
CPT/HCPCS: 99214

== ENCOUNTER 2023-07-19 09:59 | Outpatient (REF) | payer MEDICARE, SELFPAY ==
[2023-07-19 11:22] LABS: Anion Gap 10 (12-20); Blood Urea Nitrogen 8 mg/dL (9-16); Carbon Dioxide 31 mmol/L (22-29); Chloride 103 mmol/L (96-108); Estimated Glomerular Filt Rate > 60; Potassium 4.7 mmol/L (3.3-5.1); Sodium 139 mmol/L (135-145)
== END 2023-07-19 10:00 | disposition home or self-care (01) ==
LOC: HO.LAB 09:59
PROVIDERS: PCP Internal Medicine; Visit Provider Internal Medicine Nephrology
DX: E87.1 Hypo-osmolality and hyponatremia (principal); I10 Essential (primary) hypertension
CPT/HCPCS: 36415; 80051; 82565; 84520

== ENCOUNTER 2023-07-20 14:25 | Outpatient (AMB) | payer MEDICARE, SELFPAY ==
[2023-07-20 14:27] VITALS: BP 170/90; PULSE 82; O2SAT 97; BMI 27.2
--- NOTE | 2023-07-20 14:27 | HO.NEPHOV_ITS ---
Vital Signs 07/20/23 14:27 Height 5 ft Weight 139 lb 6 oz BMI 27.2 BP 170/90 H Blood Pressure Location Rt brachial Position Sitting Pulse 82 Pulse Source Pulse Oximeter Pulse Oximetry (%) 97 Oxygen Delivery Method Room Air Intake Visit Reasons: 4 Months/ Confirmed w/Son Seat Trimmer Required: No Accompanied by: Son Allergies hydrochlorothiazide Allergy (Unknown, Verified 07/20/23 14:31) Electrolyte abnormality oxycodone [OXYCODONE] Allergy (Unknown, Verified 07/20/23 14:31) VOMITTING,CONFUSION amlodipine Adverse Reaction (Intermediate, Verified 07/20/23 14:31) leg swelling lisinopril Adverse Reaction (Intermediate, Verified 07/20/23 14:31) cough losartan Adverse Reaction (Intermediate, Verified 07/20/23 14:31) hyponatremia HPI Comments Details: 87-year-old female with hypertension and H/O hyponatremia. She has been off ACEI but continues to have dry cough. Her BP has been high and has been started on metoprolol. She has no new complaints at the time of this office visit. She was accompanied by her son. She does not have any urinary symptoms now. She is not taking any oral urea or salt tablets. She has no recent confusion, weakness, edema. Her recent sodium had improved. [facility] Medical History Left leg DVT Upper respiratory infection COVID-19 virus infection Burning with urination Buttock pain Status post fall Dog bite of right arm Adult general medical exam Screening for diabetes mellitus Impacted cerumen of both ears Facial lesion Overweight (BMI 25.0-29.9) Hip osteoarthritis T12 vertebral fracture Reactive airways dysfunction syndrome Pneumonia Cholelithiasis CVA (cerebral vascular accident) Obesity (BMI 30-39.9) Hypercholesterolemia Vitamin D deficiency Hypothyroid Seizure disorder Anxiety Gout GERD (gastroesophageal reflux disease) Psoriatic arthritis Hypertension Surgical History History of Mohs surgery for squamous cell carcinoma of skin History of cataract surgery History of colonoscopy History of knee replacement procedure of right knee History of left knee replacement Family History Father No problems noted. Mother Acute CVA (cerebrovascular accident) Diabetes Brother Cancer Daughter History of nephrectomy Son Heart disease Social History Household Members: Children Household Members Other:: Daughter (Katie) and son-in-law Housing: House Do you presently have visiting nurse or other home services: No Alcohol intake: never Patient Tobacco Use Status: Never used Tobacco e-Cigarette/Vaping Use: Never Used Second Hand Smoke Exposure: No service: No Current occupational status: retired Cognitive needs: No Hearing needs: Yes (hearing aides) Vision needs: No Physical Exam Vital Signs: Last Vital Signs Pulse 82 07/20/23 14:27 BP 170/90 H 07/20/23 14:27 Pulse Ox 97 07/20/23 14:27 Oxygen Delivery Method Room Air 07/20/23 14:27 BMI result Body Mass Index 27.2 Const General: comfortable and no acute distress Orientation/consciousness: patient oriented x3 HEENT Head: Yes normocephalic Mouth: Normal oral and palatal mucosa present Eyes EOM: EOMs intact bilaterally Neck Neck: Yes supple Resp Auscultation: clear to auscultation bilaterally Cardio Jugular venous distension: no JVD Rate: regular rate GI Palpation (GI): Soft to palpation Auscultation: normal bowel sounds General: Yes no CVA tenderness Back/Spine/Pelvis Back: no CVA tenderness Skin General skin exam: no rashes or lesions noted Neuro General: patient oriented x3 and moves all extremities Extrem General: Yes no pedal edema Results Reviewed Nephrology Results: Sodium 139 mmol/L (135-145) 07/19/23 Potassium 4.7 mmol/L (3.3-5.1) 07/19/23 Chloride 103 mmol/L (96-108) 07/19/23 Carbon Dioxide 31 mmol/L (22-29) H 07/19/23 BUN 8 mg/dL (9-16) L 07/19/23 Creatinine 0.77 mg/dL (0.5-1.4) 07/19/23 Calcium 9.1 mg/dL (8.4-10.2) 03/08/23 Urine Protein Negative mg/dL (Neg-Trace) 03/09/23 Assessment & Plan Assessment & Plan (1) Hypertension: Code(s): I10 - Essential (primary) hypertension Category: Medical Qualifiers: Hypertension type: essential hypertension Qualified Code(s): I10 - Essential (primary) hypertension Plan Dulce had a euvolemic hyponatremia. She had mental status changes which is resolved. Her weakness and mentation is back to baseline. She does not taking excessive amount of free water. She was on Depakote which has been changed to Keppra recently. Her serum sodium is normal now. She had urinary issues and was started on Myrbetriq. She had been tolerating CASPER inhibitor well but was having cough and has been put on hold. She has been started on Metoprolol. Her renal functions are at baseline. She needs to maintain fluid restriction. I did not make any medication changes today. Follow-up blood work ordered. All her and her son's questions were answered. Follow up given Orders: Orders Creatinine Today I10 - Essential (primary) hypertension Blood Urea Nitrogen Today I10 - Essential (primary) hypertension Electrolytes Today I10 - Essential (primary) hypertension
== END 2023-07-20 14:54 | disposition home or self-care (01) ==
PROVIDERS: PCP Internal Medicine; Visit Provider Internal Medicine Nephrology
DX: I10 Essential (primary) hypertension (principal)
CPT/HCPCS: 99214

== ENCOUNTER → 2023-07-20 14:25 | Outpatient (BNVA) | payer MEDICARE, SELFPAY | PROVIDERS: PCP Internal Medicine; Visit Provider Internal Medicine Nephrology | DX: I10 Essential (primary) hypertension (principal) | CPT/HCPCS: 99212 ==

== ENCOUNTER 2023-09-22 10:00 | Outpatient (REF) | payer MEDICARE, SELFPAY ==
[2023-09-22 11:08] LABS: Hemoglobin 14.7 g/dl (12.0-16.0); Mean Corpuscular HGB Conc 35.9 g/dl (31.0-35.0); Mean Corpuscular Hemoglobin 30.6 pg (27.0-33.0); Mean Corpuscular Volume 85.4 fL (80.0-98.0); Mean Platelet Volume 9.8 fL (9.4-12.3); Platelet Count 173 X10*3/uL (160-400); Red Cell Distribution Width 11.9 % (11.0-16.0); White Blood Count 5.2 X10*3/uL (4.8-10.8)
[2023-09-22 11:33] LABS: Blood Urea Nitrogen 7 mg/dL (9-16)
[2023-09-22 11:34] LABS: Alanine Aminotransferase 11 U/L (0-31); Albumin Level 4.1 g/dL (3.5-5.0); Alkaline Phosphatase 82 U/L (39-117); Anion Gap 13 (12-20); Aspartate Amino Transferase 15 U/L (5-31); Bilirubin Total 0.5 mg/dL (0.0-1.0); Blood Urea Nitrogen 7 mg/dL (9-16); Calcium 9.5 mg/dL (8.4-10.2); Carbon Dioxide 27 mmol/L (22-29); Chloride 97 mmol/L (96-108); Estimated Glomerular Filt Rate > 60; Glucose Random 105 mg/dL (60-115); Potassium 3.7 mmol/L (3.3-5.1); Sodium 133 mmol/L (135-145); Total Protein 6.9 g/dL (6.5-8.0)
== END 2023-09-22 10:01 | disposition home or self-care (01) ==
LOC: HO.LAB 10:00
PROVIDERS: Internal Medicine Nephrology; PCP Internal Medicine; Visit Provider Internal Medicine Hypertension Specialist
DX: E87.1 Hypo-osmolality and hyponatremia (principal); I10 Essential (primary) hypertension
CPT/HCPCS: 36415; 80053; 84520; 85027

== ENCOUNTER 2023-09-24 11:45 | Outpatient (REF) | payer MEDICARE, SELFPAY ==
[2023-09-24 12:12] LABS: Appearance Urine Clear; Color Urine Yellow; Glucose Urine UA Negative (Negative); Leukocyte Esterase Urine Trace (Negative); Nitrite Urine Negative (Negative); UMIC TRIGGER UACC YES; Urine Blood Negative (Negative); Urine Ketones Negative (Negative); Urine Protein Negative (Neg-Trace)
[2023-09-24 12:21] LABS: Bacteria Urine None Seen (None Seen); Hyaline Casts Urine 0-2 /LPF (0-2); RBC Urine 0-2 /HPF (0-2); WBC Urine 0-5 /HPF (0-5)
== END 2023-09-24 11:46 | disposition home or self-care (01) ==
LOC: HO.LNP 11:45
PROVIDERS: Visit Provider Nurse Practitioner Family
DX: R30.0 Dysuria (principal)
CPT/HCPCS: 81001; 81003

== ENCOUNTER 2023-09-26 15:30 | Outpatient (AMB) | payer MEDICARE, SELFPAY ==
[2023-09-26 15:39] VITALS: BP 160/90; PULSE 76; O2SAT 99; BMI 27.2
--- NOTE | 2023-09-26 15:39 | A.OFFPC_ITS ---
Vital Signs 09/26/23 15:39 Height 5 ft Weight 139 lb 5.314 oz BMI 27.2 BP 160/90 H Blood Pressure Location Lt brachial Position Sitting Pulse 76 Pulse Source Pulse Oximeter Pulse Oximetry (%) 99 Oxygen Delivery Method Room Air Intake Visit Reasons: Cognitive Impairment Allergies hydrochlorothiazide Allergy (Unknown, Verified 09/26/23 15:45) Electrolyte abnormality oxycodone [OXYCODONE] Allergy (Unknown, Verified 09/26/23 15:45) VOMITTING,CONFUSION amlodipine Adverse Reaction (Intermediate, Verified 09/26/23 15:45) leg swelling lisinopril Adverse Reaction (Intermediate, Verified 09/26/23 15:45) cough losartan Adverse Reaction (Intermediate, Verified 09/26/23 15:45) hyponatremia Medication List - Last Reconciled 09/26/23 by Marie Villanueva, acetaminophen 975 mg (3 x 325 mg) PO TID PRN aspirin 81 mg PO DAILY guaifenesin 100 mg (5 mL) PO Q4H PRN levetiracetam 1,000 mg PO BID levothyroxine 88 mcg PO DAILY 90 days lidocaine 5% (Lidoderm) 1 patch topical DAILY lidocaine 4% 1 patch topical DAILY PRN loratadine 10 mg PO DAILY lorazepam 0.5 mg (1/2 x 1 mg) PO DAILY PRN 90 days magnesium oxide 400 mg PO DAILY meloxicam 15 mg PO DAILY mirabegron ER (Myrbetriq) 25 mg PO DAILY omeprazole 20 mg PO BID sumatriptan succinate (Imitrex) 50 mg PO .QD PRN tramadol 25 mg (1/2 x 50 mg) PO Q6H PRN Tobacco use date assessed: 07/02/23 Fall risk assessment: No Falls in past year Last assessed Fall Risk: 09/26/23 Dental Screening Dental Screen Date: 09/26/23 Did you have a dental visit in the last 12 months?: No Did you have a dental problem in the last 6 months where you did not have access to dental care?: No HPI Cognitive Impairment HPI Details 87-year-old overweight female with a his tory of hypertension GERD seizure disorder hypothyroid hypercholesterolemia coming in for follow-up. Last seen in 07/21/2023. Review of the notes has been following up with Nephrology for the hyponatremia patient has euvolemic hyponatremia changes in Keppra done placed on Myrbetriq. Concern on memory. as for the BP - not sure what she n is taking but states placed on previous BP med - metoprolol. Patient also has been found to have some confusion and mini-mental status done. [facility] Medical History Left leg DVT Upper respiratory infection COVID-19 virus infection Burning with urination Buttock pain Status post fall Dog bite of right arm Adult general medical exam Screening for diabetes mellitus Impacted cerumen of both ears Facial lesion Overweight (BMI 25.0-29.9) Hip osteoarthritis T12 vertebral fracture Reactive airways dysfunction syndrome Pneumonia Cholelithiasis CVA (cerebral vascular accident) Obesity (BMI 30-39.9) Hypercholesterolemia Vitamin D deficiency Hypothyroid Seizure disorder Anxiety Gout GERD (gastroesophageal reflux disease) Psoriatic arthritis Hypertension Surgical History History of Mohs surgery for squamous cell carcinoma of skin History of cataract surgery History of colonoscopy History of knee replacement procedure of right knee History of left knee replacement Family History Father No problems noted. Mother Acute CVA (cerebrovascular accident) Diabetes Brother Cancer Daughter History of nephrectomy Son Heart disease Social History Household Members: Children Household Members Other:: Daughter (Katie) and son-in-law Housing: House Do you presently have visiting nurse or other home services: No Alcohol intake: never Patient Tobacco Use Status: Never used Tobacco e-Cigarette/Vaping Use: Never Used Second Hand Smoke Exposure: No service: No Current occupational status: retired Cognitive needs: No Hearing needs: Yes (hearing aides) Vision needs: No Questionnaire Thrive Questionnaire Date Thrive assessed: 07/02/23 AUDIT C Alcohol Use Questionnaire (AUDIT-C) 1. How often do you have a drink containing alcohol?: Never 3. How often do you have six or more drinks on one occasion?: Never Total Score: 0 Score Reviewed/Action Taken: No HAZEL-7 AMB Questionnaire HAZEL-7 Date HAZEL - 7 assessed: 09/15/22 Source: Developed by Drs. Satish Summers, Radha Honeycutt, Tani Gonzales and colleagues, with an educational milton from [employer] Physical exam (Primary Care) Vital Signs: Last Vital Signs Pulse 76 09/26/23 15:39 BP 160/90 H 09/26/23 15:39 Pulse Ox 99 09/26/23 15:39 Oxygen Delivery Method Room Air 09/26/23 15:39 BMI result Body Mass Index 27.2 Tobacco/Smoking Status: Tobacco use Status Tobacco use date assessed 07/02/23 09/26/23 15:39 Patient Tobacco Use Status Never used Tobacco 09/26/23 15:39 e-Cigarette/Vaping Use Never Used 09/26/23 15:39 Thrive Assessment: Date of Thrive Assessment Date Thrive assessed 07/02/23 09/26/23 15:39 Const General: alert; No acute distress Eyes Conjunctivae: conjunctivae normal Resp Auscultation: clear to auscultation bilaterally Cardio Rate: regular rate Rhythm: regular rhythm GI Inspection: Yes normal to inspection Extrem General: Yes normal to inspection and No edema Assessment and Plan Assessment & Plan (1) Acute hyponatremia: Code(s): E87.1 - Hypo-osmolality and hyponatremia Plan: Patient has seen Nephrology has placed patient on fluid restriction (2) Overweight (BMI 25.0-29.9): Code(s): E66.3 - Overweight Plan: Diet and exercise (3) Hypertension: Code(s): I10 - Essential (primary) hypertension Qualifiers: Hypertension type: essential hypertension Qualified Code(s): I10 - Essential (primary) hypertension Plan: Continue with blood pressure medication. Decrease salt intake and exercise. . Patient has taken off blood pressure medication (4) GERD (gastroesophageal reflux disease): Comment: EGD Dr. Mireles April 2018 erosive esophagitis Code(s): K21.9 - Gastro-esophageal reflux disease without esophagitis Qualifiers: Esophagitis presence: without esophagitis Qualified Code(s): K21.9 - Gastro-esophageal reflux disease without esophagitis Plan: Avoid the foods that causes that usually spicy foods, tomato products, juices, coffee, soda and foods that your sensitive to. After eating do not lie down, allow 3-4 hours before in lie down. And keep the head of bed above 30 degrees to avoid the acid from going up. (5) Hypothyroid: Code(s): E03.9 - Hypothyroidism, unspecified Qualifiers: Hypothyroidism type: acquired Qualified Code(s): E03.9 - Hypothyroi dism, unspecified Plan: Continue with thyroid medication (6) Hypercholesterolemia: Code(s): E78.00 - Pure hypercholesterolemia, unspecified Plan: Avoid fried foods, chicken skin, eggs, butter margarine, pastries and meat. Be it pork or beef they have a lot of cholesterol (7) Generalized anxiety disorder: Code(s): F41.1 - Generalized anxiety disorder Plan: Continue with present medication (8) Cognitive impairment: Code(s): R41.89 - Other symptoms and signs involving cognitive functions and awareness Plan: will refer to neurology Orders: Referrals Neurology Referral R41.89 - Other symptoms and signs involving cognitive functions and awareness Medications: Refilled metoprolol succinate ER 25 mg PO DAILY 30 tabs 3RF I10 - Essential (primary) hypertension Coding Level of Care Code Est Pt Level 4 (40262) Diagnoses Acute hyponatremia E87.1 Overweight (BMI 25.0-29.9) E66.3 Essential hypertension I10 Hypertension type: essential hypertension Gastroesophageal reflux disease without esophagitis K21.9 Esophagitis presence: without esophagitis Acquired hypothyroidism E03.9 Hypothyroidism type: acquired Hypercholesterolemia E78.00 Generalized anxiety disorder F41.1 Cognitive impairment R41.89
== END 2023-09-26 16:29 | disposition home or self-care (01) ==
PROVIDERS: PCP Internal Medicine; Visit Provider Internal Medicine
DX: E87.1 Hypo-osmolality and hyponatremia (principal); E66.3 Overweight; I10 Essential (primary) hypertension; K21.9 Gastro-esophageal reflux disease without esophagitis; E03.9 Hypothyroidism, unspecified; E78.00 Pure hypercholesterolemia, unspecified; F41.1 Generalized anxiety disorder; R41.89 Other symptoms and signs involving cognitive functions and awareness
CPT/HCPCS: 99214

== ENCOUNTER 2023-09-28 17:16 | Observation (INO) | payer MEDICARE, SELFPAY ==
--- NOTE | ~2023-09-28 | CT_ITS ---
EXAMINATION: CT ANGIOGRAM HEAD CT ANGIOGRAM NECK CLINICAL INFORMATION: Reason for Exam intermittent aphasia and dysarthria COMPARISON: Same-day CT head, CT angiogram of the head and neck 11/08/2018 TECHNIQUE: Initial noncontrast chemical machine tender imaging of the head and neck was performed. Comparison is made with noncontrast head CT from earlier today. Test bolus sequences followed by intravenous administration 65 mL of Omnipaque 350. Helical imaging was performed in the axial plane from the aortic arch to the skull vertex. Delayed postcontrast imaging of the head was also performed. The data was processed at the principal technologist's workstation for generation of MIP sequences. Angled MIPs and volume rendered reformatted images were also generated at an offline 3D workstation. Stenoses are assessed in accordance with Yvonne et al. Quantification of Carotid Stenosis on CT Angiography. AJR 2006. 27(1):13-19. [address] CT examination was performed using dose optimization techniques as appropriate, variously including the following: *Automated exposure control *Adjustment of mA and/or kV according to patient size (this includes techniques or standardized protocols for targeted exams where dose is matched to indication/reason for exam; i.e. extremities or head) *Use of iterative reconstruction technique DLP: 1350 mGy-cm FINDINGS: CT HEAD: Suboptimal evaluation secondary to motion. Curvilinear sulcal hyperdensity in the right frontoparietal region. No acute, territorial loss of parks-white differentiation. No midline shift. The basal cisterns are preserved. Generalized cerebral volume loss with associated ventricular and sulcal prominence. Periventricular and subcortical white matter hypodensity is nonspecific but likely represents chronic microvascular ischemic change. No depressed calvarial fracture. The visualized paranasal sinuses and mastoid air cells are well-aerated. Bilateral intraocular lens replacements. Intracranial atherosclerotic calcification is noted. CTA HEAD: Anterior circulation: Right internal carotid artery: Extensive atherosclerosis with severe stenosis in the supraclinoid segment. Right middle cerebral artery: Severe stenosis in the M1 segment. Right anterior cerebral artery: Hypoplastic A1 segment, unchanged. Left internal carotid artery: Severe stenosis with short segment near complete occlusion in the supraclinoid segment. Left middle cerebral artery: No hemodynamically significant stenosis. Left anterior cerebral artery: Severe stenosis in the proximal A1 segment. Posterior circulation: Right vertebral artery: Dominant. Patent. Left vertebral artery: No hemodynamically significant stenosis. Basilar artery: No hemodynamically significant stenosis. Right posterior cerebral artery: Multifocal areas of severe stenosis throughout the P1/P2 segments. Left posterior cerebral artery: Severe stenosis throughout the left posterior cerebral artery proximal through mid P2 segment. Distal reconstitution. No high flow vascular malformation or significant aneurysmal dilatation is visualized. The major dural venous sinuses are grossly within normal limits given arterial technique. CTA NECK: Aortic arch: Normal anatomy. Atherosclerosis of the thoracic aorta and proximal great vessels. Right common carotid artery: No hemodynamically significant stenosis. Right proximal internal carotid artery: No hemodynamically significant stenosis. Right mid/distal internal carotid artery: No hemodynamically significant stenosis. Left common carotid artery: No hemodynamically significant stenosis. Left proximal internal carotid artery: Atherosclerosis without flow-limiting stenosis. Retropharyngeal course. Left mid/distal internal carotid artery: No hemodynamically significant stenosis. Right vertebral artery: Dominant. Patent. Left vertebral artery: Nondominant. Patent. CT NECK: Diffuse osteopenia. Reversal of the normal cervical lordosis with grade 1 anterolisthesis of C3-C4 and C4-C5. Advanced multilevel degenerative changes of the cervical spine with areas of moderate canal stenosis. CT/CT angio head neck IMPRESSION: CT HEAD: Suboptimal evaluation secondary to motion. Within this constraint, curvilinear sulcal hyperdensity in the right frontoparietal region is suspicious for trace subarachnoid hemorrhage. Attention on follow-up noncontrast CT is recommended to monitor for stability. CTA NECK: No hemodynamically significant stenosis. CTA HEAD: Severe multifocal stenoses throughout the anterior and posterior circulation including the left greater the right supraclinoid internal carotid arteries, right M1 segment, left A1 segment, and bilateral posterior cerebral artery P1/P2 segments. This critical result was discussed with Dr. Shoemaker at 23:58 on 09/29/2023 and it was ascertained that the content and urgency of the report was understood at the time of direct communication.
--- NOTE | ~2023-09-28 | CT_ITS ---
EXAMINATION: CT HEAD WITHOUT CONTRAST CLINICAL INFORMATION: random outburst of movement COMPARISON: CT head January 28, 2023 TECHNIQUE: Contiguous axial imaging was performed from the skull base to vertex without intravenous administration of contrast. Coronal and sagittal reformatted images are performed at the CT scanner. [This CT examination was performed using dose optimization techniques as appropriate, variously including the following: *Automated exposure control *Adjustment of mA and/or kV according to patient size (this includes techniques or standardized protocols for targeted exams where dose is matched to indication/reason for exam; i.e. extremities or head) *Use of iterative reconstruction technique] DLP: 591 mGy-cm. FINDINGS: There is no evidence of acute intracranial hemorrhage or territorial infarction. No abnormal mass-effect or midline shift is seen. [place] to white matter differentiation is well preserved. No extra-axial fluid collections are identified. There is generalized global volume loss. There is moderate prominence of the ventricles and the sulci . There is moderate hypodensity of the periventricular white matter due to chronic small vessel ischemic disease. There are vascular calcifications of the internal carotid arteries bilaterally. There is no osseous abnormality. The mastoid air cells and visualized portions of the paranasal sinuses are well-aerated. CT/CT head/brain wo IV con IMPRESSION: No acute intracranial pathology.
--- NOTE | ~2023-09-28 | MR_ITS ---
EXAMINATION: MR BRAIN WITHOUT CONTRAST CLINICAL INFORMATION: Involuntary body movements COMPARISON: CTA head and neck 09/28/2023 TECHNIQUE: Multiplanar multisequence MR imaging of the brain was obtained without intravenous contrast. FINDINGS: Motion degraded examination There is a punctate acute infarct in the deep right frontoparietal white matter (series 3 image 18). No other reduced diffusion. There is no intracranial hemorrhage on iron-sensitive imaging. No extra-axial collection or mass effect/herniation. Patchy periventricular and deep white matter T2 FLAIR hyperintensities consistent with moderate underlying microangiopathy. No hydrocephalus. Mild generalized cerebral volume loss with commensurate sulcal and ventricular prominence. The major flow voids at the skull base are preserved. The midline structures are normal. The cerebellar tonsils are normally positioned. The craniocervical junction is normal. Degenerative changes of the upper cervical spine including grade 1 anterolisthesis of C3 on C4 and left greater than right facet arthropathy. Marrow signal is within normal limits. The visualized soft tissues are without significant abnormality. No signal abnormality within the paranasal sinuses or within the mastoid air cells. MR/MR head/brain wo con IMPRESSION: Motion degraded examination 1. Punctate acute infarct in the deep right frontoparietal white matter. 2. Moderate chronic microangiopathy and mild generalized cerebral volume loss.
[2023-09-28 17:24] VITALS: BP 184/76; PULSE 73; RESP 17; TEMP 36.7; O2SAT 98; BMI 27.1
--- NOTE | 2023-09-28 17:30 | ED.GENADULT ---
HPI - General Adult General Chief complaint: General Medical Stated complaint: can't talk, involuntary muscle movement Time Seen by Provider: 09/28/23 22:10 Source: patient and family Mode of arrival: ambulatory Limitations: no limitations History of Present Illness ED Provider: Dr. Elenita Shoemaker HPI narrative: patient comes to the emergency room accompanied by her daughter. According to the patient's daughter, for about 3 weeks now, patient has been complaining of intermittent episodes of difficulty finding words and not being able to speak at all for several minutes and then self resolves. Multiple times throughout the day, but over last few weeks, seems to happen more often at night. Also, the daughter reports that seems that the patient has been having episodes when the patient rolls her eyes backwards or stares off into space less than for a few seconds. Similar times, patient seems to have uncontrolled movements of legs or arms at random times of day. Also, patient's seems to be having trouble remembering things. According to the patient's daughter, this changes are fairly acute, about 3 weeks. No falls have been reported Related Data Home Medications ?Medication ?Instructions ?Recorded ?Confirmed aspirin 81 mg tablet,delayed 81 mg PO DAILY 01/29/23 09/26/23 release Previous Rx's ?Medication ?Instructions ?Recorded lidocaine 5 % topical patch 1 patch topical DAILY #30 ea 06/09/22 (Lidoderm) guaifenesin 100 mg/5 mL oral liquid 100 mg (5 mL) PO Q4H PRN Cough 02/04/23 #100 mL tramadol 50 mg tablet 25 mg (1/2 x 50 mg) PO Q6H PRN 02/04/23 Pain, Mild (Pain Scale 1-3) #4 tabs acetaminophen 325 mg tablet 975 mg (3 x 325 mg) PO TID PRN 02/09/23 pain #10 tabs lidocaine 4 % topical patch 1 patch topical DAILY PRN pain 02/09/23 (scale score 1-3) #10 ea levothyroxine 88 mcg tablet 88 mcg PO DAILY 90 days #90 tabs 02/16/23 magnesium oxide 400 mg PO DAILY #90 caps 03/19/23 mirabegron 25 mg tablet,extended 25 mg PO DAILY #90 tabs 03/30/23 release 24 hr (Myrbetriq) lorazepam 1 mg tablet 0.5 mg (1/2 x 1 mg) PO DAILY PRN 01/15/24 anxiety 90 days #45 tabs loratadine 10 mg tablet 10 mg PO DAILY #30 tabs 05/29/23 meloxicam 15 mg tablet 15 mg PO DAILY #30 tabs 07/13/23 sumatriptan succinate 50 mg tablet 50 mg PO .QD PRN migraine headache 07/27/23 (Imitrex) #10 tabs levetiracetam 1,000 mg tablet 1,000 mg PO BID #180 tabs 07/29/23 omeprazole 20 mg capsule,delayed 20 mg PO BID #180 caps 08/29/23 release metoprolol succinate 25 mg 25 mg PO DAILY #30 tabs 09/26/23 tablet,extended release 24 hr Allergies Allergy/AdvReac Type Severity Reaction Status Date / Time hydrochlorothiazide Allergy Unknown Electrolyte Verified 09/28/23 17:29 abnormality oxycodone [OXYCODONE] Allergy Unknown VOMITTING,C Verified 09/28/23 17:29 ONFUSION amlodipine AdvReac Intermediate leg Verified 09/28/23 17:29 swelling lisinopril AdvReac Intermediate cough Verified 09/28/23 17:29 losartan AdvReac Intermediate hyponatremi Verified 09/28/23 17:29 a Review of Systems Review of Systems: Constitutional : No Weight loss, No Fever, No Chills, No Night Sweats, No Fatigue, No Malaise ENT/Mouth : No Hearing loss, No Ear Pain, No Nasal Congestion, No Sinus Pain, No Hoarseness, No sore throat, No Rhinorrhea, No Swallowing Difficulty Eyes: No Eye Pain, No Swelling, No Redness, No Foreign Body, No Discharge, No Vision Changes Cardiovascular : No Chest Pain, No SOB, No Dyspnea on Exertion, No Orthopnea, No Edema, No Palpitations Respiratory : No Cough, No Sputum, No Wheezing, No Smoke Exposure, No Dyspnea Gastrointestinal : No Nausea, No Vomiting, No Diarrhea, No Constipation, No abdominal Pain, No Hematochezia, No Melena Genitourinary : no irregular bleeding, No Dysuria, No Urinary Frequency, No Hematuria, No Urinary Incontinence, No Urgency, No Flank Pain, No Urinary Flow Changes, No Hesitancy Musculoskeletal : No joint pain, No Myalgias, No Joint Swelling Skin : No Skin Lesions, No rash Neuro : complaining of intermittent episodes of dysarthria, aphasia, possible absence seizures, choreiform like movements Psych : No Anxiety/Panic, No Depression, No SI/HI/AH/VH, No Social Issues, Heme/Lymph: No Bruising, No Bleeding,No Lymphadenopathy Endocrine : No Polyuria, No Polydipsia, No Temperature Intolerance [facility] Past Medical History Medical History Left leg DVT Upper respiratory infection COVID-19 virus infection Burning with urination Buttock pain Status post fall Dog bite of right arm Adult general medical exam Screening for diabetes mellitus Impacted cerumen of both ears Facial lesion Overweight (BMI 25.0-29.9) Hip osteoarthritis T12 vertebral fracture Reactive airways dysfunction syndrome Pneumonia Cholelithiasis CVA (cerebral vascular accident) Obesity (BMI 30-39.9) Hypercholesterolemia Vitamin D deficiency Hypothyroid Seizure disorder Anxiety Gout GERD (gastroesophageal reflux disease) Psoriatic arthritis Hypertension Surgical History History of Mohs surgery for squamous cell carcinoma of skin History of cataract surgery History of colonoscopy History of knee replacement procedure of right knee History of left knee replacement Family History Family History Father No problems noted. Mother Acute CVA (cerebrovascular accident) Diabetes Brother Cancer Daughter History of nephrectomy Son Heart disease Social History Social History Household Members: Children Household Members Other:: Daughter (Katie) and son-in-law Housing: House Do you presently have visiting nurse or other home services: No Alcohol intake: never Patient Tobacco Use Status: Never used Tobacco e-Cigarette/Vaping Use: Never Used Second Hand Smoke Exposure: No Advance Directives: No Advance Directives Information Provided: No Do you have a plan to hurt others: No Plan service: No Current occupational status: retired Cognitive needs: No Hearing needs: Yes (hearing aides) Vision needs: No Physical Exam ED Vital Signs: Vital Signs - 24 hr 09/28/23 17:24 09/28/23 23:30 Temperature 98.1 F 98.3 F Pulse Rate 73 72 Respiratory Rate 17 16 Blood Pressure 184/76 H 173/75 H Pulse Oximetry 98 98 Oxygen Delivery Method Room Air Room Air BMI result Body Mass Index 27.1 Const Other: Appearance: Alert. Oriented X3. No acute distress. Eyes: Pupils equal, round and reactive to light. ENT: Pharynx normal. Neck: Normal inspection. Neck supple. No lymph nodes noted. No crepitus CVS: Normal heart rate and rhythm. Pulses normal. Normal S1 and S2 Respiratory: No respiratory distress. Breath sounds normal. No Wheezing. No rales Abdomen: Soft and nontender. No rigidity. No distention. Skin: Skin warm and dry. Normal skin color. Normal skin turgor. Extremities: No lower extremity edema. No Lacerations. No Rash Neuro: Oriented X 3. No motor deficit. No sensory deficit. Moving all extremities. No slurred speech. CN 2 through 12 grossly intact, seems to have trouble remembering things, at this time, no dysarthria or aphasia, no difficulty moving upper lower extremities, no facial droop. NIH score is 0 at this time Psych: calm, cooperative, normal affect Course Course Course Narrative: RME performed by Christiana Ray PA-C. Patient is an 87 year old assigned female at presenting to the emergency department making random movements. Patient's daughter states that she has been making random, uncontrolled movements and losing her ability to talk over several weeks. Detailed physical exam and review of systems are deferred to the rn primary care. Labs ordered. Patient placed back in the waiting room pending room availability and results. Medications Administered Discontinued Medications Generic Name Dose Route Start Last Admin Trade Name Freq PRN Reason Stop Dose Admin Ceftriaxone Sodium 1 gm/ 50 mls @ 100 mls/hr 09/28/23 22:26 09/28/23 23:38 Sodium Chloride IV 09/28/23 22:55 Infused ONCE ONE Infusion Iohexol 100 ml 09/28/23 23:00 09/28/23 23:00 Iohexol 350 Mg/Ml 100 Ml Infus..Btl IV 09/28/23 23:01 70 ml ONCE ONE Administration Medical Decision Making Medical Decision Making [facility] Narrative: - my interpretation of labs: No significant abnormality in hematology and chemistry, normal LFTs. Patient's urinalysis has a large amount of bacteria in the urine, given the patient's new onset of symptoms, we will go ahead and treat as a UTI. Patient was given a dose of ceftriaxone IV. - I discussed the CT scan with our radiologist on-call, there is a slight suspicion that patient may have a trace subarachnoid hemorrhage but this was a suboptimal CT scan of the head due to motion. There are no obvious aneurysms visualized. Also, patient has severe multifocal stenosis throughout the anterior and posterior circulation. - I discussed the above-mentioned with Dr. Sawant from Neurology, this time, no need to transfer the patient and can not stay here in the hospital. Patient will need an MRI in the morning - I discussed the above-mentioned with the patient's family and also with our hospitalist Dr. Kessler, . Who agreed to admit the patient. Differential Diagnosis Differential Diagnoses: The differential diagnosis associated with the presentation includes ( CVA, TIA, dementia, intracranial mass, intracranial bleed) Admission/Observation Consideration of admission/observation: Escalation of care including admission/observation considered Consult Healthcare Provider Management of the patient was discussed with: Hospitalist and Composing Room Machinist Lab Data MDM Lab Attestation statement: I reviewed the patient's lab results. 09/28/23 18:13 09/28/23 18:13 Labs: Lab Results 09/28/23 09/28/23 Range/Units 18:13 18:26 WBC 5.2 (4.8-10.8) X10*3/uL RBC 4.29 (4.20-5.50) X10*6/uL Hgb 13.2 (12.0-16.0) g/dl Hct 37.4 (37.0-47.0) % MCV 87.2 (80.0-98.0) fL MCH 30.8 (27.0-33.0) pg MCHC 35.3 H (31.0-35.0) g/dl RDW 11.8 (11.0-16.0) % Plt Count 168 (160-400) X10*3/uL MPV 9.6 (9.4-12.3) fL Immature Gran % (Auto) 0.6 H (0.0-0.4) % Neut % (Auto) 70.4 (45-73) % Lymph % (Auto) 11.7 L (20-40) % [place] % (Auto) 10.9 (2-11) % Eos % (Auto) 5.2 H (0-4) % Baso % (Auto) 1.2 (0-2) % Lymph # (Auto) 0.6 L (1.2-4.9) X10*3/uL [place] # (Auto) 0.6 (0.1-1.2) X10*3/uL Eos # (Auto) 0.3 (0.0-0.4) X10*3/uL Baso # (Auto) 0.1 (0.0-0.2) X10*3/uL Abs Immat Gran (auto) 0.03 (0.00-0.03) X10*3/uL Absolute Neuts (auto) 3.6 (2.0-8.3) x10*3/uL Absolute Nucleated RBC 0.000 (0.0-0.012) X10*3/uL Nucleated RBC % (auto) 0.0 (0.0-0.2) /100WBC Sodium 132 L (135-145) mmol/L Potassium 4.1 (3.3-5.1) mmol/L Chloride 98 (96-108) mmol/L Carbon Dioxide 28 (22-29) mmol/L Anion Gap 10 L (12-20) BUN 11 (9-16) mg/dL Creatinine 0.79 (0.5-1.4) mg/dL Estim Creat Clear Calc 42.3 Estimated GFR > 60 Random Glucose 110 (60-115) mg/dL Calcium 9.3 (8.4-10.2) mg/dL Magnesium 1.8 (1.6-2.6) mg/dL Total Bilirubin 0.4 (0.0-1.0) mg/dL AST 25 (5-31) U/L ALT 14 (0-31) U/L Alkaline Phosphatase 79 (39-117) U/L Total Protein 6.5 (6.5-8.0) g/dL Albumin 4.0 (3.5-5.0) g/dL TSH 2.40 (0.32-4.0) uIU/mL Urine Color Dark Yellow Urine Appearance Cloudy Urine pH 5.5 (5.0-9.0) Ur Specific [place] >= 1.030 H (1.005-1.025) Urine Protein Trace (Neg-Trace) mg/dL Urine Glucose (UA) Negative (Negative) mg/dL Urine Ketones Negative (Negative) mg/dL Urine Blood Negative (Negative) Urine Nitrite Negative (Negative) Ur Leukocyte Esterase Moderate (2+) H (Negative) Urine RBC 3-5 H (0-2) /HPF Urine WBC 6-10 (0-5) /HPF Ur Squamous Epith Cells >20 (0-2) /HPF Urine Bacteria 4+ (None Seen) Hyaline Casts 0-2 (0-2) /LPF Influenza Type A (PCR) NEGATIVE (Negative) Influenza Type B (PCR) NEGATIVE (Negative) RSV RNA Qual (PCR) NEGATIVE (Negative) SARS-CoV-2 RNA (RT-PCR) NEGATIVE (Negative) Independent Interpretation I performed an independent interpretation of an: CT Scan Radiology Impression Discussion of test interpretation with radiology: I have reviewed the radiologist's reading. Radiologist Impression: CT HEAD: Suboptimal evaluation secondary to motion. Curvilinear sulcal hyperdensity in the right frontoparietal region. No acute, territorial loss of parks-white differentiation. No midline shift. The basal cisterns are preserved. Generalized cerebral volume loss with associated ventricular and sulcal prominence. Periventricular and subcortical white matter hypodensity is nonspecific but likely represents chronic microvascular ischemic change. No depressed calvarial fracture. The visualized paranasal sinuses and mastoid air cells are well-aerated. Bilateral intraocular lens replacements. Intracranial atherosclerotic calcification is noted. CTA HEAD: Anterior circulation: Right internal carotid artery: Extensive atherosclerosis with severe stenosis in the supraclinoid segment. Right middle cerebral artery: Severe stenosis in the M1 segment. Right anterior cerebral artery: Hypoplastic A1 segment, unchanged. Left internal carotid artery: Severe stenosis with short segment near complete occlusion in the supraclinoid segment. Left middle cerebral artery: No hemodynamically significant stenosis. Left anterior cerebral artery: Severe stenosis in the proximal A1 segment. Posterior circulation: Right vertebral artery: Dominant. Patent. Left vertebral artery: No hemodynamically significant stenosis. Basilar artery: No hemodynamically significant stenosis. Right posterior cerebral artery: Multifocal areas of severe stenosis throughout the P1/P2 segments. Left posterior cerebral artery: Severe stenosis throughout the left posterior cerebral artery proximal through mid P2 segment. Distal reconstitution. No high flow vascular malformation or significant aneurysmal dilatation is visualized. The major dural venous sinuses are grossly within normal limits given arterial technique. CTA NECK: Aortic arch: Normal anatomy. Atherosclerosis of the thoracic aorta and proximal great vessels. Right common carotid artery: No hemodynamically significant stenosis. Right proximal internal carotid artery: No hemodynamically significant stenosis. Right mid/distal internal carotid artery: No hemodynamically significant stenosis. Left common carotid artery: No hemodynamically significant stenosis. Left proximal internal carotid artery: Atherosclerosis without flow-limiting stenosis. Retropharyngeal course. Left mid/distal internal carotid artery: No hemodynamically significant stenosis. Right vertebral artery: Dominant. Patent. Left vertebral artery: Nondominant. Patent. CT NECK: Diffuse osteopenia. Reversal of the normal cervical lordosis with grade 1 anterolisthesis of C3-C4 and C4-C5. Advanced multilevel degenerative changes of the cervical spine with areas of moderate canal stenosis. CT/CT angio head neck IMPRESSION: CT HEAD: Suboptimal evaluation secondary to motion. Within this constraint, curvilinear sulcal hyperdensity in the right frontoparietal region is suspicious for trace subarachnoid hemorrhage. Attention on follow-up noncontrast CT is recommended to monitor for stability. CTA NECK: No hemodynamically significant stenosis. CTA HEAD: Severe multifocal stenoses throughout the anterior and posterior circulation including the left greater the right supraclinoid internal carotid arteries, right M1 segment, left A1 segment, and bilateral posterior cerebral artery P1/P2 segments. Independent Historian Clinical information obtained from an independent historian. History obtained from or confirmed by: Other ( patient's daughter) Critical Care Time Critical Care Time Critical Care Time: Yes Total Critical Care Time: 75 Attestation: I have personally provided critical care time. Time includes review of lab data, radiology results, discussion with consultants, and monitoring for potential decompensation. Intervention performed as documented. Discharge Plan Discharge Clinical Impression: Brain TIA, UTI (urinary tract infection) Patient Disposition: Admitted As Inpatient Prescriptions: No Action levothyroxine 88 mcg tablet 88 mcg PO DAILY 90 Days Qty: 90 2RF magnesium oxide 400 mg magnesium capsule 400 mg PO DAILY Qty: 90 1RF Myrbetriq 25 mg tablet extended release 24 hr 25 mg PO DAILY Qty: 90 2RF lorazepam 1 mg tablet 0.5 mg PO DAILY PRN (Reason: anxiety) 90 Days Qty: 45 1RF loratadine 10 mg tablet 10 mg PO DAILY Qty: 30 5RF meloxicam 15 mg tablet 15 mg PO DAILY Qty: 30 2RF sumatriptan succinate [Imitrex] 50 mg tablet 50 mg PO .QD PRN (Reason: migraine headache) Qty: 10 3RF levetiracetam 1,000 mg tablet 1,000 mg PO BID Qty: 180 0RF omeprazole 20 mg capsule,delayed release(DR/EC) 20 mg PO BID Qty: 180 2RF aspirin 81 mg Tablet,Delayed Release (Dr/Ec) 81 mg PO DAILY tramadol 50 mg Tablet 25 mg PO Q6H PRN (Reason: Pain, Mild (Pain Scale 1-3)) Qty: 4 0RF guaifenesin 100 mg/5 mL Liquid 100 mg PO Q4H PRN (Reason: Cough) Qty: 100 0RF lidocaine [Lidoderm] 5 % adhesive patch,medicated 1 patch topical DAILY Qty: 30 0RF Rx Instructions: leave on most painful area for up to 12 hrs acetaminophen 325 mg tablet 975 mg PO TID PRN (Reason: pain) Qty: 10 0RF lidocaine 4 % adhesive patch,medicated 1 patch topical DAILY PRN (Reason: pain (scale score 1-3)) Qty: 10 0RF metoprolol succinate 25 mg tablet extended release 24 hr 25 mg PO DAILY Qty: 30 3RF Print Language: Zambian
[2023-09-28 18:17] LABS: MANUAL DIFF FLAG NO
[2023-09-28 18:33] LABS: Appearance Urine Cloudy; Color Urine Dark Yellow; Glucose Urine UA Negative (Negative); Leukocyte Esterase Urine Moderate (2+) (Negative); Nitrite Urine Negative (Negative); PH 5.5 (5.0-9.0); Specific Gravity - Urine >= 1.030 (1.005-1.025); UMIC TRIGGER UACC YES; Urine Blood Negative (Negative); Urine Ketones Negative (Negative); Urine Protein Trace mg/dL (Neg-Trace)
[2023-09-28 18:33] LABS: Alanine Aminotransferase 14 U/L (0-31); Alkaline Phosphatase 79 U/L (39-117); Anion Gap 10 (12-20); Aspartate Amino Transferase 25 U/L (5-31); Bilirubin Total 0.4 mg/dL (0.0-1.0); Blood Urea Nitrogen 11 mg/dL (9-16); Calcium 9.3 mg/dL (8.4-10.2); Carbon Dioxide 28 mmol/L (22-29); Chloride 98 mmol/L (96-108); Creatinine Clr Calc Pharmacy 42.3; Estimated Glomerular Filt Rate > 60; Glucose Random 110 mg/dL (60-115); Magnesium 1.8 mg/dL (1.6-2.6); Potassium 4.1 mmol/L (3.3-5.1); Sodium 132 mmol/L (135-145); Total Protein 6.5 g/dL (6.5-8.0)
[2023-09-28 18:43] LABS: Bacteria Urine 4+ (None Seen); Hyaline Casts Urine 0-2 /LPF (0-2); Squamous Epithelial Cell Urine >20 /HPF (0-2); UACC Culture Trigger YES
[2023-09-28 18:43] LABS: Basophils Absolute Auto 0.1 X10*3/uL (0.0-0.2); Basophils Percent Auto 1.2 % (0-2); Eosinophils Absolute Auto 0.3 X10*3/uL (0.0-0.4); Eosinophils Percent Auto 5.2 % (0-4); Hematocrit 37.4 % (37.0-47.0); Hemoglobin 13.2 g/dl (12.0-16.0); Imm Gran Abs Auto 0.03 X10*3/uL (0.00-0.03); Imm Gran Pct Auto 0.6 % (0.0-0.4); Lymphocytes Absolute Auto 0.6 X10*3/uL (1.2-4.9); Lymphocytes Percent Auto 11.7 % (20-40); Mean Corpuscular HGB Conc 35.3 g/dl (31.0-35.0); Mean Corpuscular Hemoglobin 30.8 pg (27.0-33.0); Mean Corpuscular Volume 87.2 fL (80.0-98.0); Mean Platelet Volume 9.6 fL (9.4-12.3); Monocytes Absolute Auto 0.6 X10*3/uL (0.1-1.2); Monocytes Percent Auto 10.9 % (2-11); Neutrophils Absolute Auto 3.6 x10*3/uL (2.0-8.3); Neutrophils Percent Auto 70.4 % (45-73); Platelet Count 168 X10*3/uL (160-400); Red Blood Count 4.29 X10*6/uL (4.20-5.50); Red Cell Distribution Width 11.8 % (11.0-16.0); White Blood Count 5.2 X10*3/uL (4.8-10.8)
[2023-09-28 18:58] LABS: Influenza A PCR NEGATIVE (Negative); Influenza B PCR NEGATIVE (Negative); Resp Syncy Virus RNA Qual PCR NEGATIVE (Negative); SARS COV2 PCR INHOUSE NEGATIVE (Negative)
[2023-09-28] MEDS: iohexoL 350 MG/ML 100 ML INFUS..BTL IV (23:00)
[2023-09-28] MEDS: cefTRIAXone sodium 1 GM in 0.9 % Sodium Chloride 50 ML IV (23:08)
[2023-09-28 23:30] VITALS: BP 173/75; PULSE 72; RESP 16; TEMP 36.8; O2SAT 98
--- NOTE | 2023-09-29 02:14 | PM.IMHP ---
History of Present Illness Date of Service: 09/29/23 Attending physician on admission: Mack Zavala Chief Complaint: Involuntary movements Ankita Dorado is a very pleasant 87 years old woman with past medical history significant for TIA in 2019, hypothyroidism, migraine headaches, vitamin-D deficiency, seizure disorder on Keppra, GERD and essential hypertension presents to the emergency department accompanied by her daughter due to 3 weeks history of events of involuntary movement of the hands and legs. The patient also has been experiencing events of speech difficulty and headaches (for which she takes Imitrex). The patient denied any focal weakness or gait difficulty. Daughter who was at bedside contributed with HPI and said that the patient sometimes forgets simple activities such as preparing coffee. Patient had a recent hospitalization due to hyponatremia that was attributed to Depakote. Patient has been eating well and has a good appetite. No significant cardiopulmonary, gastrointestinal or genitourinary symptoms were reported. Daughter showed me a video of Ankita sitting in a chair having involuntary movement to the right leg. In the ED, she was found to have stable vital signs. Blood workup was remarkable for sodium 132 (it was 133 six days ago). There are no other significant electrolyte imbalances. Renal function, LFTs and TSH are normal. Urinalysis showed 3-5 WBC, moderate leukocytes and elevated specific gravity. Head CT scan without contrast showed no acute intracranial pathology. Head and neck CTA showed severe multifocal stenosis and suspicious trace subarachnoid hemorrhage in the right frontoparietal region. ED tx: None. ED physician contacted neurologist on-call recommended admission to hospitalist service. FORMERLY [facility] Medical History Left leg DVT Upper respiratory infection COVID-19 virus infection Burning with urination Buttock pain Status post fall Dog bite of right arm Adult general medical exam Screening for diabetes mellitus Impacted cerumen of both ears Facial lesion Overweight (BMI 25.0-29.9) Hip osteoarthritis T12 vertebral fracture Reactive airways dysfunction syndrome Pneumonia Cholelithiasis CVA (cerebral vascular accident) Obesity (BMI 30-39.9) Hypercholesterolemia Vitamin D deficiency Hypothyroid Seizure disorder Anxiety Gout GERD (gastroesophageal reflux disease) Psoriatic arthritis Hypertension Family History Father No problems noted. Mother Acute CVA (cerebrovascular accident) Diabetes Brother Cancer Daughter History of nephrectomy Son Heart disease Surgical History History of Mohs surgery for squamous cell carcinoma of skin History of cataract surgery History of colonoscopy History of knee replacement procedure of right knee History of left knee replacement Social History Household Members: Children Household Members Other:: Daughter (Katie) and son-in-law Housing: House Do you presently have visiting nurse or other home services: No Alcohol intake: never Patient Tobacco Use Status: Never used Tobacco Smoked in Last 30 Days: No e-Cigarette/Vaping Use: Never Used Second Hand Smoke Exposure: No Use of substances other than those prescribed or required for medical reasons: No Advance Directives: No Advance Directives Information Provided: No Do you have a plan to hurt others: No Plan Nutrition Risks: No Nutritional Risk service: No Current occupational status: retired Cognitive needs: No Hearing needs: Yes (hearing aides) Vision needs: No Meds Allergies Allergy/AdvReac Type Severity Reaction Status Date / Time hydrochlorothiazide Allergy Unknown Electrolyte Verified 09/28/23 17:29 abnormality oxycodone [OXYCODONE] Allergy Unknown VOMITTING,C Verified 09/28/23 17:29 ONFUSION amlodipine AdvReac Intermediate leg Verified 09/28/23 17:29 swelling lisinopril AdvReac Intermediate cough Verified 09/28/23 17:29 losartan AdvReac Intermediate hyponatremi Verified 09/28/23 17:29 a Active Medications: Current Medications Acetaminophen (Acetaminophen 325 Mg Tablet) 650 mg PO Q6H PRN PRN Reason: Pain, Mild (Pain Scale 1-3), fever or headache Calcium Carbonate (Calcium Carbonate 750 Mg Tab.Chew) 750 mg PO Q4H PRN PRN Reason: Heartburn Magnesium Hydroxide (Milk Of Magnesia 30 Ml Oral.Susp) 30 ml PO DAILY PRN PRN Reason: Constipation Melatonin (Melatonin 3 Mg Tablet) 6 mg PO BEDTIME PRN PRN Reason: Insomnia Sodium Chloride (0.9 % Sodium Chloride Flush 3 Ml Syringe) 3 ml IVFLUSH QSHIFT [facility] Home Medications ?Medication ?Instructions ?Recorded ?Confirmed ?Last Taken ?Type aspirin 81 mg tablet,delayed 81 mg PO DAILY 01/29/23 09/26/23 Unknown History release Physical Exam Vital Signs and Narrative: Vital Signs: Last Vital Signs Temp 98.3 F 09/28/23 23:30 Pulse 72 09/28/23 23:30 Resp 16 09/28/23 23:30 BP 173/75 H 09/28/23 23:30 Pulse Ox 98 09/28/23 23:30 O2 Del Method Room Air 09/28/23 23:30 BMI result Body Mass Index 27.1 Constitutional - Awake and Alert, No apparent distress Eyes - PERRLA, EOMI Cardiovascular - S1S2, RRR, No edema Respiratory - Normal lung expansion, Normal respiratory effort, No respiratory distress, CTA bilaterally Gastrointestinal - NT / ND; +BS; No rebound or guarding. Lower abdomen irregular surgical scar. Extremities - no calf tenderness bilaterally, no swelling Skin - Warm/Dry Neurological - Alert & oriented x3, CN III-XII in tact, 5/5 strength BUE and BLE Psychological - Appropriate affect Results Labs 09/28/23 18:13 09/28/23 18:13 Labs: Laboratory Results - last 24 hr 09/28/23 09/28/23 18:13 18:26 MCV 87.2 MCH 30.8 MCHC 35.3 H RDW 11.8 Plt Count 168 MPV 9.6 Immature Gran % (Auto) 0.6 H Neut % (Auto) 70.4 Lymph % (Auto) 11.7 L [place] % (Auto) 10.9 Eos % (Auto) 5.2 H Baso % (Auto) 1.2 Lymph # (Auto) 0.6 L [place] # (Auto) 0.6 Eos # (Auto) 0.3 Baso # (Auto) 0.1 Abs Immat Gran (auto) 0.03 Absolute Neuts (auto) 3.6 Absolute Nucleated RBC 0.000 Nucleated RBC % (auto) 0.0 Anion Gap 10 L Estim Creat Clear Calc 42.3 Estimated GFR > 60 Random Glucose 110 Calcium 9.3 Magnesium 1.8 Total Bilirubin 0.4 AST 25 ALT 14 Alkaline Phosphatase 79 Total Protein 6.5 Albumin 4.0 TSH 2.40 Urine Color Dark Yellow Urine Appearance Cloudy Urine pH 5.5 Ur Specific [place] >= 1.030 H Urine Protein Trace Urine Glucose (UA) Negative Urine Ketones Negative Urine Blood Negative Urine Nitrite Negative Ur Leukocyte Esterase Moderate (2+) H Urine RBC 3-5 H Urine WBC 6-10 Ur Squamous Epith Cells >20 Urine Bacteria 4+ Hyaline Casts 0-2 Influenza Type A (PCR) NEGATIVE Influenza Type B (PCR) NEGATIVE RSV RNA Qual (PCR) NEGATIVE SARS-CoV-2 RNA (RT-PCR) NEGATIVE Imaging Radiologist's Impressions: Impressions Head CT 09/28/23 17:53 IMPRESSION: No acute intracranial pathology. Head/Neck CTA 09/28/23 23:04 IMPRESSION: CT HEAD: Suboptimal evaluation secondary to motion. Within this constraint, curvilinear sulcal hyperdensity in the right frontoparietal region is suspicious for trace subarachnoid hemorrhage. Attention on follow-up noncontrast CT is recommended to monitor for stability. CTA NECK: No hemodynamically significant stenosis. CTA HEAD: Severe multifocal stenoses throughout the anterior and posterior circulation including the left greater the right supraclinoid internal carotid arteries, right M1 segment, left A1 segment, and bilateral posterior cerebral artery P1/P2 segments. This critical result was discussed with Dr. Shoemaker at 23:58 on 09/29/2023 and it was ascertained that the content and urgency of the report was understood at the time of direct communication. Assessment and Plan (1) Involuntary movements: Status: Acute (2) Stenosis of cerebral artery: Status: Acute Plan Ankita Dorado is 87 y/o woman with PMHx significant for TIA in 2019 presents with: Severe multifocal stenosis (posterior and anterior circulation) and suspicious trace subarachnoid hemorrhage in the right frontoparietal region. Observation. Check MRI. Aspirin on hold. Continue statin. Neurology consult. 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 Neurology consult. Hyponatremia, chronic. Continue to monitor. Hypothyroidism. TSH is normal. Continue levothyroxine. History of seizures. Continue Keppra. Essential hypertension. Continue home medications, losartan and metoprolol. GERD. Continue PPI. Code Status: Full Quality Stroke Does the patient have a stroke diagnosis?: No VTE Prior VTE?: No VTE Risk Level:: Medical - moderate - high VTE Device Contraindication: N/A - Device Ordered VTE Drug Contraindication: Treatment Not Indicated
[2023-09-29 05:46] VITALS: BMI 26.6
[2023-09-29 06:00] VITALS: BP 126/82; PULSE 73; RESP 18; TEMP 36.3; O2SAT 98
[2023-09-29 06:11] LABS: MANUAL DIFF FLAG NO
[2023-09-29 06:28] LABS: Basophils Absolute Auto 0.1 X10*3/uL (0.0-0.2); Basophils Percent Auto 1.2 % (0-2); Eosinophils Absolute Auto 0.3 X10*3/uL (0.0-0.4); Eosinophils Percent Auto 5.1 % (0-4); Hematocrit 39.8 % (37.0-47.0); Hemoglobin 14.1 g/dl (12.0-16.0); Imm Gran Abs Auto 0.03 X10*3/uL (0.00-0.03); Imm Gran Pct Auto 0.6 % (0.0-0.4); Lymphocytes Absolute Auto 0.6 X10*3/uL (1.2-4.9); Lymphocytes Percent Auto 11.9 % (20-40); Mean Corpuscular HGB Conc 35.4 g/dl (31.0-35.0); Mean Corpuscular Hemoglobin 30.7 pg (27.0-33.0); Mean Corpuscular Volume 86.7 fL (80.0-98.0); Mean Platelet Volume 9.4 fL (9.4-12.3); Monocytes Absolute Auto 0.5 X10*3/uL (0.1-1.2); Monocytes Percent Auto 9.5 % (2-11); Neutrophils Absolute Auto 3.6 x10*3/uL (2.0-8.3); Neutrophils Percent Auto 71.7 % (45-73); Platelet Count 170 X10*3/uL (160-400); Red Blood Count 4.59 X10*6/uL (4.20-5.50); Red Cell Distribution Width 11.9 % (11.0-16.0); White Blood Count 5.1 X10*3/uL (4.8-10.8)
[2023-09-29 06:42] LABS: Anion Gap 12 (12-20); Blood Urea Nitrogen 8 mg/dL (9-16); Calcium 9.8 mg/dL (8.4-10.2); Carbon Dioxide 27 mmol/L (22-29); Chloride 100 mmol/L (96-108); Creatinine Clr Calc Pharmacy 47.3; Estimated Glomerular Filt Rate > 60; Glucose Random 94 mg/dL (60-115); Potassium 3.7 mmol/L (3.3-5.1); Sodium 135 mmol/L (135-145)
[2023-09-29 07:54] VITALS: BP 180/80; PULSE 74; RESP 18; TEMP 36.1; O2SAT 95
--- NOTE | 2023-09-29 08:50 | PHA.MEDREC ---
Pharmacy Consult ? Medication Reconciliation Pharmacy has completed the medication reconciliation. Called daughter Katie ([phone]) and confirmed meds.
[2023-09-29] MEDS: 0.9 % Sodium Chloride Flush 3 ML SYRINGE IVFLUSH ×3 (09:00→20:12)
[2023-09-29 09:47] VITALS: BP 184/82; PULSE 76
[2023-09-29] MEDS: levETIRAcetam 1,000 MG TABLET 1000 MG PO ×2 (09:47→20:09)
[2023-09-29] MEDS: Metoprolol Succinate ER 25 MG TAB.ER.24H PO (09:47)
[2023-09-29] MEDS: Lidocaine 4 % Patch ADH..PATCH 1 PATCH TRANSDERMA (09:47)
--- NOTE | 2023-09-29 09:54 | P.EN_ITS ---
Event Note Date of Service: 09/29/23 Event Note: seen and examined this morning, admitted for involuntary movements ongoing for several weeks, she is unable to provide any other significant detail Patient is observed sitting up in bed, awake, alert, no acute distress. No involuntary movements are noted at this time.No focal neurologial deficits are noted. Plan for brain MRI as well as neurology evaluation Further management as per admission H&P * Severe multifocal stenosis (posterior and anterior circulation) and suspicious trace subarachnoid hemorrhage in the right frontoparietal region. Check MRI. Aspirin on hold. Continue statin. 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 Neurology consult. * Hyponatremia, chronic. resolved * Hypothyroidism. TSH is normal. Continue levothyroxine. * History of seizures. Continue Keppra - keppra does have side effect of choreoathetosis, but this not seems to be what was originally described - will discuss with neurology * Essential hypertension. Continue home medications, metoprolol. * GERD. Continue PPI. Time Spent With Patient Time: Total time managing care of this patient today ____ minutes.
[2023-09-29] MEDS: LORazepam 0.5 MG TABLET PO (10:54)
[2023-09-29] MEDS: Acetaminophen 325 MG TABLET 650 MG PO (12:41)
[2023-09-29] MEDS: Omeprazole 20 MG CAPSULE.DR PO (15:13)
[2023-09-29] MEDS: Aspirin Enteric Coated 81 MG TABLET.DR PO (15:13)
[2023-09-29 15:50] VITALS: BP 177/87; PULSE 74; RESP 16; TEMP 36.2; O2SAT 96
--- NOTE | 2023-09-29 15:53 | P.CNNE_ITS ---
History of Present Illness Data of Consult Service Date: 09/29/23 Primary Care Provider: Marie Villanueva MD [facility] Reason for consult: Cerebral infarct 87 years old woman who came to hospital with many days history of change in mental status and abnormal movements. She was unable to provide any meaningful history as she did not know where she was and did not volunteer any symptoms. Review of Systems 2 Review of Systems: No recent cold or flu-like illness PMFSH Past Medical History Medical History Left leg DVT Upper respiratory infection COVID-19 virus infection Burning with urination Buttock pain Status post fall Dog bite of right arm Adult general medical exam Screening for diabetes mellitus Impacted cerumen of both ears Facial lesion Overweight (BMI 25.0-29.9) Hip osteoarthritis T12 vertebral fracture Reactive airways dysfunction syndrome Pneumonia Cholelithiasis CVA (cerebral vascular accident) Obesity (BMI 30-39.9) Hypercholesterolemia Vitamin D deficiency Hypothyroid Seizure disorder Anxiety Gout GERD (gastroesophageal reflux disease) Psoriatic arthritis Hypertension Family History Family History Father No problems noted. Mother Acute CVA (cerebrovascular accident) Diabetes Brother Cancer Daughter History of nephrectomy Son Heart disease Surgical History Surgical History History of Mohs surgery for squamous cell carcinoma of skin History of cataract surgery History of colonoscopy History of knee replacement procedure of right knee History of left knee replacement Social History Social History Household Members: Children Household Members Other:: Daughter (Katie) and son-in-law Housing: House Do you presently have visiting nurse or other home services: No Alcohol intake: never Patient Tobacco Use Status: Never used Tobacco e-Cigarette/Vaping Use: Never Used Second Hand Smoke Exposure: No service: No Current occupational status: retired Cognitive needs: No Hearing needs: Yes (hearing aides) Vision needs: No Meds Allergies Allergy/AdvReac Type Severity Reaction Status Date / Time hydrochlorothiazide Allergy Unknown Electrolyte Verified 09/28/23 17:29 abnormality oxycodone [OXYCODONE] Allergy Unknown VOMITTING,C Verified 09/28/23 17:29 ONFUSION amlodipine AdvReac Intermediate leg Verified 09/28/23 17:29 swelling lisinopril AdvReac Intermediate cough Verified 09/28/23 17:29 losartan AdvReac Intermediate hyponatremi Verified 09/28/23 17:29 a Active Medications: Current Medications Acetaminophen (Acetaminophen 325 Mg Tablet) 650 mg PO Q6H PRN PRN Reason: Pain, Mild (Pain Scale 1-3), fever or headache Last Admin: 09/29/23 12:41 Dose: 650 mg Aspirin (Aspirin Enteric Coated 81 Mg Tablet.) 81 mg PO DAILY [facility] Last Admin: 09/29/23 15:13 Dose: 81 mg Atorvastatin Calcium (Atorvastatin Calcium 40 Mg Tablet) 40 mg PO BEDTIME [facility] Calcium Carbonate (Calcium Carbonate 750 Mg Tab.Chew) 750 mg PO Q4H PRN PRN Reason: Heartburn Levetiracetam (Levetiracetam 1,000 Mg Tablet) 1,000 mg PO BID [facility] Last Admin: 09/29/23 09:47 Dose: 1,000 mg Levothyroxine Sodium (Levothyroxine Sodium 88 Mcg Tablet) 88 mcg PO DAILY@0600 [facility] Lidocaine (Lidocaine 4 % Patch Adh..Patch) 1 patch TRANSDERMA DAILY [facility]; Protocol Last Admin: 09/29/23 09:47 Dose: 1 patch Loratadine (Loratadine 10 Mg Tablet) 10 mg PO DAILY [facility] Lorazepam (Lorazepam 0.5 Mg Tablet) 0.5 mg PO DAILY PRN PRN Reason: anxiety Last Admin: 09/29/23 10:54 Dose: 0.5 mg Magnesium Hydroxide (Milk Of Magnesia 30 Ml Oral.Susp) 30 ml PO DAILY PRN PRN Reason: Constipation Magnesium Oxide (Magnesium Oxide 400 Mg Tablet) 400 mg PO DAILY [facility] Melatonin (Melatonin 3 Mg Tablet) 6 mg PO BEDTIME PRN PRN Reason: Insomnia Metoprolol Succinate (Metoprolol Succinate Er 25 Mg Tab.Er.24h) 25 mg PO DAILY [facility]; Protocol Last Admin: 09/29/23 09:47 Dose: 25 mg Mirabegron (Mirabegron 25 Mg Tab.Er.24h) 25 mg PO DAILY [facility] Omeprazole (Omeprazole 20 Mg Capsule.) 20 mg PO BID@0630,1630 [facility] Last Admin: 09/29/23 15:13 Dose: 20 mg Saliva Substitute (Dry Mouth [place] 60 Ml [place]) 1 spray MUCOUS MEM Q2H PRN PRN Reason: Dry Mouth Sodium Chloride (0.9 % Sodium Chloride Flush 3 Ml Syringe) 3 ml IVFLUSH QSHIFT [facility] Last Admin: 09/29/23 15:13 Dose: 3 ml Home Medications ?Medication ?Instructions ?Recorded ?Confirmed ?Last Taken ?Type aspirin 81 mg tablet,delayed 81 mg PO DAILY 01/29/23 09/29/23 09/28/23 History release lactoperoxidase-glucose 1 piece of gum mucous membrane 09/29/23 09/29/23 09/28/23 History oxidase-potass thiocyan gum DAILY levothyroxine 88 mcg tablet 88 mcg PO DAILY@0600 09/29/23 09/29/23 09/28/23 History lidocaine 4 % topical patch 1 patch topical DAILY 09/29/23 09/29/23 09/28/23 History loperamide 2 mg capsule 2 mg PO Q6H PRN Diarrhea 09/29/23 09/29/23 Unknown History meloxicam 15 mg tablet 15 mg PO BEDTIME 09/29/23 09/29/23 Unknown History sumatriptan succinate 50 mg tablet 50 mg PO DAILY PRN migraine 09/29/23 09/29/23 Unknown History (Imitrex) headache Physical Exam 2 Vital Signs: Vital Signs: Last Vital Signs Temp 96.9 F 09/29/23 07:54 Pulse 76 09/29/23 09:47 Resp 18 09/29/23 07:54 BP 184/82 H 09/29/23 09:47 Pulse Ox 95 09/29/23 07:54 O2 Del Method Room Air 09/29/23 07:54 BMI result Body Mass Index 26.6 Neuro: Other: She is alert and awake looking around made eye contact answered simple questions. She did not know that she was in hospital. She did not know that there was anything wrong with the legs or any abnormal movements. She did not complain of any pain. Face was symmetrical. Visual espinoza were intact. Spontaneity and fluency of speech was normal. Comprehension was intact. Deep tendon reflexes were trace to absent with flexor plantars. Intermittently she was moving her left leg and occasionally right leg. Results Labs 09/29/23 05:58 09/29/23 05:58 Labs: Short CBC 09/28/23 09/29/23 Range/Units 18:13 05:58 WBC 5.2 5.1 (4.8-10.8) X10*3/uL Hgb 13.2 14.1 (12.0-16.0) g/dl Hct 37.4 39.8 (37.0-47.0) % Plt Count 168 170 (160-400) X10*3/uL BMP 09/28/23 09/29/23 18:13 05:58 Sodium 132 L 135 Potassium 4.1 3.7 Chloride 98 100 Carbon Dioxide 28 27 BUN 11 8 L Creatinine 0.79 0.70 Calcium 9.3 9.8 Liver Function 09/28/23 Range/Units 18:13 Total Bilirubin 0.4 (0.0-1.0) mg/dL AST 25 (5-31) U/L ALT 14 (0-31) U/L Alkaline Phosphatase 79 (39-117) U/L Albumin 4.0 (3.5-5.0) g/dL Urine 09/28/23 Range/Units 18:26 Urine Color Dark Yellow Urine Appearance Cloudy Urine pH 5.5 (5.0-9.0) Ur Specific [place] >= 1.030 H (1.005-1.025) Urine Protein Trace (Neg-Trace) mg/dL Urine Glucose (UA) Negative (Negative) mg/dL MRI of brain revealed a small right frontoparietal area acute ischemic infarction and extensive chronic ischemic disease of brain and moderate to severe cerebral atrophy. CTA revealed widespread intracranial stenosis. Microbiology Microbiology Results: Microbiology 09/28/23 Unknown Urine clean catch - Urine parks top Urine Culture - Preliminary Culture too young to evaluate. Assessment and Plan (1) Cerebral infarction: Qualifiers: Cerebral infarction mechanism: thrombosis Precerebral and cerebral artery: middle cerebral artery Laterality of affected vessel: right Qualified Code(s): I63.311 - Cerebral infarction due to thrombosis of right middle cerebral artery Status: Acute 87 years old woman with extensive intracranial atherosclerotic disease and associated significant ischemic disease with in his small acute lesion on the right side and significant atrophy using sumatriptan for headache control came to hospital change in mental status and abnormal movements. My 1st recommendation for her is to not use sumatriptan or Triptan type of medicines. This can result in ischemic strokes. She is at risk for seizure disorder in an EEG is recommended. Otherwise mainstay of management is blood pressure control anti-platelet agents and statin. Procedures Date of Service Date of Service: 09/29/23
[2023-09-29] MEDS: Dry Mouth Spray 60 ML SPRAY 1 SPRAY MUCOUS MEM (18:36)
[2023-09-29 19:18] VITALS: BP 168/80; PULSE 84; RESP 18; TEMP 36.6; O2SAT 97
[2023-09-29] MEDS: Melatonin 3 MG TABLET 6 MG PO (20:09)
[2023-09-29] MEDS: Atorvastatin Calcium 40 MG TABLET PO (20:09)
[2023-09-30] VITALS: BP 162/76; PULSE 79; RESP 18; TEMP 36.4; O2SAT 97
[2023-09-30] MEDS: LORazepam 0.5 MG TABLET PO (00:29)
[2023-09-30 04:00] VITALS: BP 160/92; PULSE 83; RESP 18; TEMP 35.9; O2SAT 98
[2023-09-30] MEDS: Omeprazole 20 MG CAPSULE.DR PO ×2 (05:59→16:10)
[2023-09-30] MEDS: Levothyroxine Sodium 88 MCG TABLET PO (05:59)
[2023-09-30 06:32] LABS: Cholesterol 177 mg/dL (<200); HDL Cholesterol 49 mg/dL (>40); LDL Cholesterol Calculated 108 mg/dL (<100); Triglycerides 102 mg/dL (<150)
[2023-09-30 07:44] VITALS: BP 146/81; PULSE 68; RESP 16; TEMP 36.1; O2SAT 98
[2023-09-30] MEDS: Lidocaine 4 % Patch ADH..PATCH 1 PATCH TRANSDERMA (08:06)
[2023-09-30] MEDS: Metoprolol Succinate ER 25 MG TAB.ER.24H PO (08:07)
[2023-09-30] MEDS: 0.9 % Sodium Chloride Flush 3 ML SYRINGE IVFLUSH ×3 (08:07→21:22)
[2023-09-30] MEDS: Aspirin Enteric Coated 81 MG TABLET.DR PO (08:07)
[2023-09-30] MEDS: Loratadine 10 MG TABLET PO (08:07)
[2023-09-30] MEDS: levETIRAcetam 1,000 MG TABLET 1000 MG PO ×2 (08:07→19:37)
[2023-09-30] MEDS: Mirabegron 25 MG TAB.ER.24H PO (08:07)
[2023-09-30] MEDS: Magnesium Oxide 400 MG TABLET PO (08:07)
--- NOTE | 2023-09-30 09:09 | P.PNIM_ITS ---
Subjective Subjective Date of Service: 09/30/23 Interval History: f/u on acute stroke no new neurological changes doing well Physical Exam 2 Vital Signs: Vital Signs: Last Vital Signs Temp 96.9 F 09/30/23 07:44 Pulse 68 09/30/23 07:44 Resp 16 09/30/23 07:44 BP 146/81 H 09/30/23 07:44 Pulse Ox 98 09/30/23 07:44 O2 Del Method Room Air 09/30/23 07:44 BMI result Body Mass Index 26.6 Const: Other: General: AO X 3, no acute distress Resp: CTA bilateral CVS: S1,S2,RRR GI: +BS, NT, no distention Skin: No rash Neuro: motor grossly intact Psych: appropriate affect Objective Data Active Medications Acetaminophen (Acetaminophen 325 Mg Tablet) 650 mg PO Q6H PRN PRN Reason: Pain, Mild (Pain Scale 1-3), fever or headache Last Admin: 09/29/23 12:41 Dose: 650 mg Documented By: BRYANT Aspirin (Aspirin Enteric Coated 81 Mg Tablet.Dr) 81 mg PO DAILY [facility] Last Admin: 09/30/23 08:07 Dose: 81 mg Documented By: BRYANT Atorvastatin Calcium (Atorvastatin Calcium 40 Mg Tablet) 40 mg PO BEDTIME [facility] Last Admin: 09/29/23 20:09 Dose: 40 mg Documented By: DIETER Calcium Carbonate (Calcium Carbonate 750 Mg Tab.Chew) 750 mg PO Q4H PRN PRN Reason: Heartburn Levetiracetam (Levetiracetam 1,000 Mg Tablet) 1,000 mg PO BID [facility] Last Admin: 09/30/23 08:07 Dose: 1,000 mg Documented By: BRYANT Levothyroxine Sodium (Levothyroxine Sodium 88 Mcg Tablet) 88 mcg PO DAILY@0600 [facility] Last Admin: 09/30/23 05:59 Dose: 88 mcg Documented By: DIETER Lidocaine (Lidocaine 4 % Patch Adh..Patch) 1 patch TRANSDERMA DAILY [facility]; Protocol Last Admin: 09/30/23 08:06 Dose: 1 patch Documented By: BRYANT Loratadine (Loratadine 10 Mg Tablet) 10 mg PO DAILY [facility] Last Admin: 09/30/23 08:07 Dose: 10 mg Documented By: BRYANT Lorazepam (Lorazepam 0.5 Mg Tablet) 0.5 mg PO DAILY PRN PRN Reason: anxiety Last Admin: 09/30/23 00:29 Dose: 0.5 mg Documented By: DIETER Magnesium Hydroxide (Milk Of Magnesia 30 Ml Oral.Susp) 30 ml PO DAILY PRN PRN Reason: Constipation Magnesium Oxide (Magnesium Oxide 400 Mg Tablet) 400 mg PO DAILY [facility] Last Admin: 09/30/23 08:07 Dose: 400 mg Documented By: BRYANT Melatonin (Melatonin 3 Mg Tablet) 6 mg PO BEDTIME PRN PRN Reason: Insomnia Last Admin: 09/29/23 20:09 Dose: 6 mg Documented By: DIETER Metoprolol Succinate (Metoprolol Succinate Er 25 Mg Tab.Er.24h) 25 mg PO DAILY [facility]; Protocol Last Admin: 09/30/23 08:07 Dose: 25 mg Documented By: BRYANT Mirabegron (Mirabegron 25 Mg Tab.Er.24h) 25 mg PO DAILY [facility] Last Admin: 09/30/23 08:07 Dose: 25 mg Documented By: BRYANT Omeprazole (Omeprazole 20 Mg Capsule.Dr) 20 mg PO BID@0630,1630 [facility] Last Admin: 09/30/23 05:59 Dose: 20 mg Documented By: DIETER Saliva Substitute (Dry Mouth [place] 60 Ml [place]) 1 spray MUCOUS MEM Q2H PRN PRN Reason: Dry Mouth Last Admin: 09/29/23 18:36 Dose: 1 spray Documented By: BRYANT Sodium Chloride (0.9 % Sodium Chloride Flush 3 Ml Syringe) 3 ml IVFLUSH QSHIFT [facility] Last Admin: 09/30/23 08:07 Dose: 3 ml Documented By: BRYANT Labs 09/29/23 05:58 09/29/23 05:58 Labs: Laboratory Results - last 24 hr 09/30/23 06:02 Triglycerides 102 Cholesterol 177 LDL Cholesterol, Calc 108 H HDL Cholesterol 49 Microbiology Microbiology Results: Microbiology 09/28/23 Unknown Urine Culture - Preliminary Urine clean catch - Urine parks top Culture too young to evaluate. Assessment and Plan (1) Cerebral infarction: Status: Acute Plan 87-year-old female with past medical history of hypertension, hypercholesterolemia, GERD, CVA, hypothyroid, DVT of left leg, seizure disorder here with acute stroke Acue stroke as evident on MRI (Punctate acute infarct in the deep right frontoparietal white matter.) -presently no localized symptoms, Neuro recommend BP control, statin, ASA.. No triptands. PT eval Memory problems (forgetting how to make coffee) and involuntary movements likely secondary to above: nature unclear, nishant has unspecified dementia, EEG tomorrow Hyponatremia, chronic. Continue to monitor. Hypothyroidism. TSH is normal. Continue levothyroxine. HTN--continue metoprolol History of seizures. Continue Keppra. Essential hypertension. Continue home medications, losartan and metoprolol. GERD. Continue PPI. Code Status: Full Quality Stroke Does the patient have a stroke diagnosis?: No VTE Prior VTE?: No VTE Risk Level:: Medical - moderate - high VTE Device Contraindication: N/A - Device Ordered VTE Drug Contraindication: Treatment Not Indicated
--- NOTE | 2023-09-30 13:48 | PC.NURSE ---
family at bedside requesting to speak with MD about test results and Pt condition, MD Dr Martinez notified.
[2023-09-30 16:00] VITALS: BP 162/80; PULSE 79; RESP 18; TEMP 36.2; O2SAT 99
[2023-09-30] MEDS: Melatonin 3 MG TABLET 6 MG PO (19:37)
[2023-09-30] MEDS: Atorvastatin Calcium 40 MG TABLET PO (19:37)
[2023-09-30 19:58] VITALS: BP 150/65; PULSE 79; RESP 16; TEMP 36.1; O2SAT 94
[2023-09-30] MEDS: Calcium Carbonate 750 MG TAB.CHEW PO (21:10)
[2023-09-30] MEDS: Acetaminophen 325 MG TABLET 650 MG PO (21:19)
--- NOTE | 2023-10-01 | EEG_ITS ---
This is a 16-channel EEG with an EKG lead. The patient is reported awake and confused during the tracing. Background EEG rhythm is medium amplitude mixed theta beta with intermittent left hemispheric sharply controlled theta range discharges. No definite spike was noted. Cardiac lead did not reveal any significant abnormality. Photic stimulation and hyperventilation were not performed. IMPRESSION: Mildly abnormal EEG suggestive of left hemispheric irritability. MD DEYANIRA Payne/TONY / [id number]
[2023-10-01 03:22] VITALS: BP 150/60; PULSE 76; RESP 16; TEMP 36; O2SAT 96
[2023-10-01] MEDS: Levothyroxine Sodium 88 MCG TABLET PO (05:28)
[2023-10-01] MEDS: Omeprazole 20 MG CAPSULE.DR PO (05:30)
[2023-10-01 08:00] VITALS: BP 154/74; PULSE 76; RESP 16; TEMP 36.1; O2SAT 96
[2023-10-01] MEDS: Loratadine 10 MG TABLET PO (08:27)
[2023-10-01] MEDS: levETIRAcetam 1,000 MG TABLET 1000 MG PO (08:27)
[2023-10-01] MEDS: Mirabegron 25 MG TAB.ER.24H PO (08:28)
[2023-10-01] MEDS: Aspirin Enteric Coated 81 MG TABLET.DR PO (08:28)
[2023-10-01] MEDS: Magnesium Oxide 400 MG TABLET PO (08:29)
[2023-10-01] MEDS: Metoprolol Succinate ER 25 MG TAB.ER.24H PO (08:29)
[2023-10-01] MEDS: Lidocaine 4 % Patch ADH..PATCH 1 PATCH TRANSDERMA (08:29)
[2023-10-01] MEDS: 0.9 % Sodium Chloride Flush 3 ML SYRINGE IVFLUSH (08:32)
[2023-10-01] MEDS: Dry Mouth Spray 60 ML SPRAY 1 SPRAY MUCOUS MEM (08:36)
--- NOTE | 2023-10-01 08:38 | MHC.CM.PN ---
CM MET WITH PT AND DAUGHTER, MONICA, AT BEDSIDE MONICA LIVES WITH THE PT AND PROVIDES ANY ASSISTANCE SHE NEEDS, HOWEVER REPORTS THE PT IS TYPICALLY INDEPENDENT PT HAS BEEN USING A WALKER RECENTLY, BUT DOES NOT USE ON AT BASELINE SHE HAS A HCP ON FILE WHICH IS HER SON, IVANNA ANDERSON ASKS THAT IVANNA BE UPDATED PRIOR TO PT BEING DISCHARGED PCP; [facility] NOTICE DELIVERED DCP: HOME, RESUME FAMILY SUPPORT FAMILY TO TRANSPORT
--- NOTE | 2023-10-01 11:47 | MHC.CM.PN ---
Addendum entered by Akanksha Cabrera RN 10/01/23 13:36: Patient medically cleared for dc home w/ services. Daughter will provide transport home at 2pm. RN aware. Original Note: PT rec home w/ services. Patient is agreeable and prefers [facility], who has accepted. Potential dc later today. CM will continue to follow.
[2023-10-01 12:00] VITALS: BP 159/88; PULSE 77; RESP 18; TEMP 37.6; O2SAT 99
--- NOTE | 2023-10-01 12:26 | P.DS_ITS ---
DS: Providers Provider Date of Service: 10/01/23 Date of admission: 09/29/23 01:55 Primary care physician: Marie Villanueva MD Consults: 09/29/23 07:23 Consult to Neurology Routine Consulting Provider: [facility] Reason for consultation: involuntary movements, multifocal stenosis Has provider been notified: No DS: Diagnosis Discharge Diagnosis (1) Cerebral infarction: Status: Acute DS: Summary Hospital Course Hospital Course: admission hpi Chief Complaint: Involuntary movements Ankita Dorado is a very pleasant 87 years old woman with past medical history significant for TIA in 2019, hypothyroidism, migraine headaches, vitamin-D deficiency, seizure disorder on Keppra, GERD and essential hypertension presents to the emergency department accompanied by her daughter due to 3 weeks history of events of involuntary movement of the hands and legs. The patient also has been experiencing events of speech difficulty and headaches (for which she takes Imitrex). The patient denied any focal weakness or gait difficulty. Daughter who was at bedside contributed with HPI and said that the patient sometimes forgets simple activities such as preparing coffee. Patient had a recent hospitalization due to hyponatremia that was attributed to Depakote. Patient has been eating well and has a good appetite. No significant cardiopulmonary, gastrointestinal or genitourinary symptoms were reported. Daughter showed me a video of Ankita sitting in a chair having involuntary movement to the right leg. In the ED, she was found to have stable vital signs. Blood workup was remarkable for sodium 132 (it was 133 six days ago). There are no other significant electrolyte imbalances. Renal function, LFTs and TSH are normal. Urinalysis showed 3-5 WBC, moderate leukocytes and elevated specific gravity. Head CT scan without contrast showed no acute intracranial pathology. Head and neck CTA showed severe multifocal stenosis and suspicious trace subarachnoid hem orrhage in the right frontoparietal region. Hospital course: Acue stroke as evident on MRI (Punctate acute infarct in the deep right frontoparietal white matter.) likely cause of left sided involuntary movment Neuro recommend BP control, statin, ASA.. No triptands. PT recommends home with VNS, Memory problems (forgetting how to make coffee) and involuntary movements likely secondary to above: nature unclear, nishant has unspecified dementia, EEG tomorrow Hyponatremia, chronic. Continue to monitor. Hypothyroidism. TSH is normal. Continue levothyroxine. HTN--continue metoprolol History of seizures. Continue Keppra. Essential hypertension. Continue home medications, losartan and metoprolol. GERD. Continue PPI. 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 Discharge Coordination Time (in mins): 35 Quality: Safe Use of Opioids Does Pt have an Active Cancer Diagnosis on the Problem List?: No Quality: Stroke Does the patient have a stroke diagnosis?: Yes Reason for No Anti-thrombotic at DC: N/A - Med Ordered Reason for No Anticoagulant at DC: Contraindicated Reason Not Initiating IV-Tpa: Contraindicated Reason for No Anti-thrombotic by Day Two: N/A - Med Ordered Reason for No Statin at DC: N/A - Med Ordered Physical Exam Vital Signs: Vital Signs: Last Vital Signs Temp 96.9 F 10/01/23 08:00 Pulse 76 10/01/23 08:00 Resp 16 10/01/23 08:00 BP 154/74 H 10/01/23 08:00 Pulse Ox 96 10/01/23 08:00 O2 Del Method Room Air 10/01/23 08:00 BMI result Body Mass Index 26.6 Discharge Plan Discharge Anticipated Discharge Date/Time: 10/01/23 12:20 Patient Disposition: Home Health Service Discharge Diagnosis: Acute Stroke with left sided involuntary movement Referrals: [facility] [Outside] - 3-5 Days ([facility] will call you to schedule your home physical therapy appointments) Marie Villanuvea MD [Primary Care Provider] - 1 Week Discharge Medications: New atorvastatin 40 mg Tablet 40 mg PO BEDTIME Qty: 90 0RF aspirin 81 mg Tablet,Delayed Release (Dr/Ec) 81 mg PO DAILY Qty: 30 0RF Continued magnesium oxide 400 mg magnesium capsule 400 mg PO DAILY Qty: 90 1RF Myrbetriq 25 mg tablet extended release 24 hr 25 mg PO DAILY Qty: 90 2RF lorazepam 1 mg tablet 0.5 mg PO DAILY PRN (Reason: anxiety) 90 Days Qty: 45 1RF loratadine 10 mg tablet 10 mg PO DAILY Qty: 30 5RF levetiracetam 1,000 mg tablet 1,000 mg PO BID Qty: 180 0RF omeprazole 20 mg capsule,delayed release(DR/EC) 20 mg PO BID Qty: 180 2RF aspirin 81 mg Tablet,Delayed Release (Dr/Ec) 81 mg PO DAILY sumatriptan succinate [Imitrex] 50 mg tablet 50 mg PO DAILY PRN (Reason: migraine headache) levothyroxine 88 mcg tablet 88 mcg PO DAILY@0600 lidocaine 4 % Adhesive Patch,Medicated 1 patch TOPICAL DAILY loperamide 2 mg Capsule 2 mg PO Q6H PRN (Reason: Diarrhea) lactoperoxi-gluc oxid-pot thio Gum 1 piece of gum MUCOUS MEMBRANE DAILY meloxicam 15 mg tablet 15 mg PO BEDTIME acetaminophen 325 mg tablet 975 mg PO TID PRN (Reason: pain) Qty: 10 0RF metoprolol succinate 25 mg tablet extended release 24 hr 25 mg PO DAILY Qty: 30 3RF Discharge Orders: Discharge Order (Routine); Ordered 10/01/23 Ordered By: Jed Martinez Diet: Advance to usual diet Activity on Discharge: As tolerated Stand Alone Forms: Patient Portal Discharge page Print Language: Italian Care Plan Goals: recovery from stroke and involuntary movment Health Concerns: stroke, invountary movement Plan of Treatment: take Aspirin and Lipitor to reduce risk of future stroke You will have physical therapy at home Follow up with the neurologist in the office Assessment: see above Discharge Date/Time: 10/01/23 14:17
--- NOTE | 2023-10-01 12:37 | W.MHC.F2F ---
Service Date Service Date: 10/01/23 Encounter Date of encounter: 10/01/23 Reasons for Services Signs and symptoms assessed: Stroke with left sided involuntary movment Reason for retirement: medication management and teach disease management Reason for physical therapy: home safety and mobility, therapeutic exercises and gait/transfer training Homebound: Leaving the home is medically contraindicated at this time without the asist of a device and/or another person due th the listed conditions above and below. Reason homebound: unsteady gait / fall risk and unable to drive Homebound supporting statement: homebound due to stroke causing unsteady and therefore needs the assistance of another person Certification: Based on the above findings, I certify that this patient is confined to the home and needs intermittent retirement care, physical therapy and/or speech therapy, or continues to need occupational therapy. The patient is under my care, and I have initiated the establishment of the plan of care. The patient will be followed by a physician who will periodically review the plan of care. Time Spent With Patient Time: Total time managing care of this patient today ____ minutes.
[2023-10-02 19:14] LABS: Levetiracetam Keppra 42.3 mcg/mL (6.0-46.0)
== END 2023-10-01 14:17 | disposition home health service (06) ==
LOC: HO.ED 09-29 00:59 → HO.EDOVER 09-29 02:03 → HO.S3 09-29 05:02
PROVIDERS: Physician Assistant Medical; Admitting Provider Internal Medicine; Emergency Provider Emergency Medicine; PCP Internal Medicine; Visit Provider Internal Medicine
DX: I63.311 Cerebral infarction due to thrombosis of right middle cerebral artery (principal); R25.9 Unspecified abnormal involuntary movements; R40.4 Transient alteration of awareness; R41.3 Other amnesia; R47.89 Other speech disturbances; I10 Essential (primary) hypertension; N39.0 Urinary tract infection, site not specified; M10.9 Gout, unspecified; E03.9 Hypothyroidism, unspecified; K21.9 Gastro-esophageal reflux disease without esophagitis; G40.909 Epilepsy, unspecified, not intractable, without status epilepticus; E87.1 Hypo-osmolality and hyponatremia; Z03.818 Encounter for observation for suspected exposure to other biological agents ruled out; Z79.899 Other long term (current) drug therapy
CPT/HCPCS: 0241U; 36415; 70450; 70496; 70498; 70551; 80048; 80053; 80061; 80177; 81001; 83735; 84443; 85025; 87086; 95816; 96365; 97162; 99221; 99285; J0696; Q9967

== ENCOUNTER → 2023-09-29 01:55 | Outpatient (BNV) | payer MEDICARE, SELFPAY | PROVIDERS: Admitting Provider Internal Medicine; Emergency Provider Emergency Medicine; PCP Internal Medicine; Visit Provider Psychiatry & Neurology Neurology | DX: I63.311 Cerebral infarction due to thrombosis of right middle cerebral artery (principal) | CPT/HCPCS: 99222 ==

== ENCOUNTER → 2023-09-29 01:55 | Outpatient (BNV) | payer MEDICARE, SELFPAY | PROVIDERS: Admitting Provider Internal Medicine; Emergency Provider Emergency Medicine; PCP Internal Medicine; Visit Provider Internal Medicine | DX: R25.9 Unspecified abnormal involuntary movements (principal); I66.9 Occlusion and stenosis of unspecified cerebral artery | CPT/HCPCS: 99222; 99232; 99239; 99499; G0180 ==

== ENCOUNTER → 2023-10-26 23:59 | Outpatient (BNV) | payer MEDICARE, SELFPAY | PROVIDERS: PCP Internal Medicine; Visit Provider Internal Medicine | DX: R25.9 Unspecified abnormal involuntary movements (principal); I10 Essential (primary) hypertension; E87.1 Hypo-osmolality and hyponatremia | CPT/HCPCS: G0180 ==

== ENCOUNTER 2023-11-15 15:18 | Outpatient (AMB) | payer MEDICARE, SELFPAY ==
[2023-11-15 15:27] VITALS: BP 156/80; PULSE 67; O2SAT 98; BMI 26.2
--- NOTE | 2023-11-15 15:28 | A.OFFPC_ITS ---
Vital Signs 11/15/23 15:27 11/15/23 16:17 Height 5 ft Weight 134 lb BMI 26.2 BP 156/80 H 128/80 Blood Pressure Location Lt brachial Lt brachial Position Sitting Sitting Pulse 67 Pulse Source Pulse Oximeter Pulse Oximetry (%) 98 Oxygen Delivery Method Room Air Intake Visit Reasons: Hypertension Allergies hydrochlorothiazide Allergy (Unknown, Verified 11/15/23 15:27) Electrolyte abnormality oxycodone [OXYCODONE] Allergy (Unknown, Verified 11/15/23 15:27) VOMITTING,CONFUSION amlodipine Adverse Reaction (Intermediate, Verified 11/15/23 15:27) leg swelling lisinopril Adverse Reaction (Intermediate, Verified 11/15/23 15:) cough losartan Adverse Reaction (Intermediate, Verified 11/15/23 15:) hyponatremia Medication List - Last Reconciled 11/15/23 by Marie Villanueva MD [low height rollator As directed] acetaminophen 975 mg (3 x 325 mg) PO TID PRN aspirin 81 mg PO DAILY atorvastatin 80 mg PO .QD levetiracetam 1,000 mg PO BID levothyroxine 88 mcg PO DAILY@0600 90 days lidocaine 4% 1 patch topical DAILY loratadine 10 mg PO DAILY lorazepam 0.5 mg (1/2 x 1 mg) PO DAILY PRN 90 days magnesium oxide 400 mg PO DAILY metoprolol succinate ER 25 mg PO DAILY mirabegron ER (Myrbetriq) 25 mg PO DAILY omeprazole 20 mg PO BID sumatriptan succinate (Imitrex) 50 mg PO DAILY PRN Tobacco use date assessed: 07/02/23 Fall risk assessment: No Falls in past year Last assessed Fall Risk: 11/15/23 Dental Screening Dental Screen Date: 09/26/23 Did you have a dental visit in the last 12 months?: Yes Did you have a dental problem in the last 6 months where you did not have access to dental care?: No Was dental information given to patient?: Patient has dentist HPI Hypertension HPI Details 87-year-old overweight female with histo ry of hypertension GERD hypothyroidism hypercholesterolemia generalized anxiety disorder and cognitive impairment last seen in September 2023. Review of the notes in October 2023 was in the ER admitted 3 weeks history of involuntary movement of the hands and legs . Patient has been experiencing difficulty with speech. CT scan was negative she does have severe multifocal stenosis and suspicious subarachnoid hemorrhage in the right frontoparietal region diagnosis CVA with an MRI showing punctate acute infarct in the deep right frontoparietal white matter. Neurology has seen BP control statin discontinued Triptan continue with aspirin and physical therapy. Kashif is seen here talks in a melodic response- which is odd for her. [facility] Medical History (Updated 11/15/23 @ 16:10 by Marie Villanueva MD) Cerebral infarction Left leg DVT Upper respiratory infection COVID-19 virus infection Burning with urination Buttock pain Status post fall Dog bite of right arm Adult general medical exam Screening for diabetes mellitus Impacted cerumen of both ears Facial lesion Overweight (BMI 25.0-29.9) Hip osteoarthritis T12 vertebral fracture Reactive airways dysfunction syndrome Pneumonia Cholelithiasis CVA (cerebral vascular accident) Obesity (BMI 30-39.9) Hypercholesterolemia Vitamin D deficiency Hypothyroid Seizure disorder Anxiety Gout GERD (gastroesophageal reflux disease) Psoriatic arthritis Hypertension Surgical History History of Mohs surgery for squamous cell carcinoma of skin History of cataract surgery History of colonoscopy History of knee replacement procedure of right knee History of left knee replacement Family History Father No problems noted. Mother Acute CVA (cerebrovascular accident) Diabetes Brother Cancer Daughter History of nephrectomy Son Heart disease Social History Household Members: Children Household Members Other:: Daughter (Katie) and son-in-law Housing: House Do you presently have visiting nurse or other home services: No Alcohol intake: never Patient Tobacco Use Status: Never used Tobacco e-Cigarette/Vaping Use: Never Used Second Hand Smoke Exposure: No service: No Current occupational status: retired Cognitive needs: No Hearing needs: Yes (hearing aides) Vision needs: No Questionnaire PHQ-9 Over the last 2 weeks, how often have you been bothered by any of the following problems? 1. Little interest or pleasure in doing things: not at all 2. Feeling down, depressed, or hopeless: not at all 3. Trouble falling or staying asleep, or sleeping too much: not at all 4. Feeling tired or having little energy: not at all 5. Poor appetite or overeating: not at all 6. Feeling bad about yourself - or that you are a failure or have let yourself or your family down: not at all 7. Trouble concentrating on things, such as reading the newspaper or watching television: not at all 8. Moving or speaking so slowly that other people could have noticed. Or the opposite - being so fidgety or restless that you have been moving around a lot more than usual: not at all 9. Thoughts that you would be better off or of hurting yourself in some way: not at all Total score: 0 Depression Screening Interpretation: Negative Depression Screening Done: Yes 93233 - PHQ-9 Billing: Yes Source: Developed by Drs. Satish Summers, Radha Honeycutt, Tani Gonzales and colleagues, with an educational milton from [email or web address]. Thrive Questionnaire Date Thrive assessed: 09/30/23 AUDIT C Alcohol Use Questionnaire (AUDIT-C) 1. How often do you have a drink containing alcohol?: Never 3. How often do you have six or more drinks on one occasion?: Never Total Score: 0 Score Reviewed/Action Taken: No HAZEL-7 AMB Questionnaire HAZEL-7 Date HAZEL - 7 assessed: 09/15/22 Source: Developed by Drs. Satish Summers, Radha Honeycutt, Tani Gonzales and colleagues, with an educational milton from [email or web address]. Physical exam (Primary Care) Vital Signs: Last Vital Signs Pulse 67 11/15/23 15:27 BP 156/80 H 11/15/23 15:27 Pulse Ox 98 11/15/23 15:27 Oxygen Delivery Method Room Air 11/15/23 15:27 BMI result Body Mass Index 26.2 Tobacco/Smoking Status: Tobacco use Status Tobacco use date assessed 07/02/23 11/15/23 15:29 Patient Tobacco Use Status Never used Tobacco 11/15/23 15:29 e-Cigarette/Vaping Use Never Used 11/15/23 15:29 PHQ-9: PHQ-9 Score PHQ-9: Total score 0 11/15/23 15:43 Depression Screening Interpretation: Negative Thrive Assessment: Date of Thrive Assessment Date Thrive assessed 09/30/23 11/15/23 15:29 Const General: alert; No acute distress Eyes Conjunctivae: conjunctivae normal Resp Auscultation: clear to auscultation bilaterally Cardio Rate: regular rate Rhythm: regular rhythm GI Inspection: Yes normal to inspection Extrem General: Yes normal to inspection and No edema Assessment and Plan Assessment & Plan (1) Hypertension: Code(s): I10 - Essential (primary) hypertension Qualifiers: Hypertension type: essential hypertension Qualified Code(s): I10 - Essential (primary) hypertension Plan: Continue with blood pressure medication. Decrease salt intake and exercise patient is taking metoprolol 25 mg once a day only (2) Hypercholesterolemia: Code(s): E78.00 - Pure hypercholesterolemia, unspecified Plan: Avoid fried foods, chicken skin, eggs, butter margarine, pastries and meat. Be it pork or beef they have a lot of cholesterol LDL goal of less than 70 and triglyceride of less than 150 on atorvastatin 40 mg once a day (3) Hypothyroid: Code(s): E03.9 - Hypothyroidism, unspecified Qualifiers: Hypothyroidism type: acquired Qualified Code(s): E03.9 - Hypothyroidism, unspecified Plan: Continue with thyroid medication (4) Generalized anxiety disorder: Code(s): F41.1 - Generalized anxiety disorder Plan: Continue with present medication (5) CVA (cerebral vascular accident): Comment: TIA October 2018, echo October 2018 normal LV systolic function impaired relaxation EEG normal October 2018, 10/2023 Code(s): I63.9 - Cerebral infarction, unspecified Plan: Continue with aspirin, Control the cholesterol, weight, blood pressure Orders: Orders Lipid Panel 3 Months E78.00 - Pure hypercholesterolemia, unspecified Comprehensive Met. Panel 3 Months E78.00 - Pure hypercholesterolemia, unspecified Referrals Speech and Hearing Referral I63.9 - Cerebral infarction, unspecified Medications: Changed From atorvastatin 40 mg PO BEDTIME 90 tabs 0RF E78.00 - Pure hypercholesterolemia, unspecified To atorvastatin 80 mg PO .QD 90 tabs 2RF E78.00 - Pure hypercholesterolemia, unspecified Discontinued meloxicam Discontinued Reason: Doctor's Order 15 mg PO BEDTIME 90 tabs 0RF Coding Level of Care Code Est Pt Level 4 (22352) Diagnoses Essential hypertension I10 Hypertension type: essential hypertension Hypercholesterolemia E78.00 Acquired hypothyroidism E03.9 Hypothyroidism type: acquired Generalized anxiety disorder F41.1 CVA (cerebral vascular accident) I63.9
[2023-11-15 16:17] VITALS: BP 128/80
== END 2023-11-15 16:35 | disposition home or self-care (01) ==
PROVIDERS: PCP Internal Medicine; Visit Provider Internal Medicine
DX: I10 Essential (primary) hypertension (principal); Z86.73 Personal history of transient ischemic attack (TIA), and cerebral infarction without residual deficits; E78.00 Pure hypercholesterolemia, unspecified; E03.9 Hypothyroidism, unspecified; F41.1 Generalized anxiety disorder
CPT/HCPCS: 99214

== ENCOUNTER 2023-12-02 17:00 | Inpatient (IN) | payer MEDICARE, SELFPAY ==
--- NOTE | ~2023-12-02 | CT_ITS ---
EXAMINATION: CT HEAD WITHOUT CONTRAST CLINICAL INFORMATION: Left-sided facial droop. Left arm weakness. Expressive aphasia. COMPARISON: Brain MRI from 09/29/2023. CTA Head and Neck from 09/27/2033. TECHNIQUE: Contiguous axial imaging was performed from the skull base to vertex without intravenous administration of contrast. This CT examination was performed using dose optimization techniques as appropriate, variously including the following: *Automated exposure control. *Adjustment of mA and/or kV according to patient size (this includes techniques or standardized protocols for targeted exams where dose is matched to indication/reason for exam; i.e. extremities or head). *Use of iterative reconstruction technique. DLP: 628 mGy-cm FINDINGS: There is no evidence of acute intracranial hemorrhage or edematous territorial infarction. Rutledge-white matter differentiation is preserved. Scattered and partially confluent hypoattenuation in the periventricular and deep white matter are consistent with moderate microangiopathy. Proportional prominence of the ventricles and sulcal spaces without evidence of obstructive hydrocephalus. No abnormal mass effect or midline shift. No extra-axial fluid collections. Calcific atherosclerotic disease of the intracranial internal carotid and vertebral arteries. No hyperdense vessel sign. No acute soft tissue or osseous abnormalities. Mild mucosal thickening of the paranasal sinuses. The mastoid air cells and middle ear cavities are clear. Moderate rightward nasal septal deviation. Bilateral lens extractions. CT/CT head for stroke IMPRESSION: 1. No evidence of acute intracranial hemorrhage or edematous territorial infarction. 2. Moderate underlying microangiopathy and generalized cerebral volume loss. This critical result was discussed with Dr. Rosas at 17:31 on 12/02/2023 and it was ascertained that the content and urgency of the report was understood at the time of direct communication. Electronically signed by: Ralph Zamorano DO 12/02/2023 05:41 PM EDT
--- NOTE | ~2023-12-02 | MR_ITS ---
EXAMINATION: MR BRAIN WITHOUT CONTRAST CLINICAL INFORMATION: CVA COMPARISON: CTA Head and Neck 12/02/2023, MRI of the brain without contrast 09/29/2023 TECHNIQUE: Multiplanar multisequence MR imaging of the brain was obtained without intravenous contrast. FINDINGS: Motion degraded examination. There is no acute infarct on diffusion-weighted imaging. There is no intracranial hemorrhage on iron-sensitive imaging. No extra-axial collection or mass effect/herniation. Patchy periventricular and deep white matter T2 FLAIR hyperintensities consistent with moderate underlying microangiopathy. No hydrocephalus. Mild generalized cerebral volume loss with commensurate sulcal and ventricular prominence. The major flow voids at the skull base are preserved. The midline structures are normal. The cerebellar tonsils are normally positioned. The craniocervical junction is normal. Marrow signal is within normal limits. The visualized soft tissues are without significant abnormality. No signal abnormality within the paranasal sinuses or within the mastoid air cells. MR/MR head/brain wo con IMPRESSION: No acute infarct or other acute intracranial abnormality. Electronically signed by: Kwesi Moise MD 12/03/2023 11:58 AM EDT
--- NOTE | ~2023-12-02 | CT_ITS ---
EXAMINATION: CT ANGIOGRAM HEAD CT ANGIOGRAM NECK CLINICAL INFORMATION: Left facial droop, left arm weakness, expressive a COMPARISON: CTA Head and Neck 09/28/2023, same day noncontrast head CT TECHNIQUE: Initial noncontrast beef cattle farm manager imaging of the head and neck was performed. Comparison is made with noncontrast head CT from earlier today. Test bolus sequences followed by intravenous administration 70 mL of Omnipaque 350. Helical imaging was performed in the axial plane from the aortic arch to the skull vertex. Delayed postcontrast imaging of the head was also performed. The data was processed at the ultrasound technologist sonographer workstation for generation of MIP sequences. Angled MIPs and volume rendered reformatted images were also generated at an offline 3D workstation. Stenoses are assessed in accordance with NASCET criteria unless otherwise indicated. DLP: 1522 mGy-cm This CT examination was performed using dose optimization techniques as appropriate, variously including the following: *Automated exposure control. *Adjustment of mA and/or kV according to patient size (this includes techniques or standardized protocols for targeted exams where dose is matched to indication/reason for exam; i.e. extremities or head). *Use of iterative reconstruction technique. FINDINGS: CT head: Please refer to report from immediately preceding noncontrast head CT for full details. No evidence of acute territorial edematous infarction. No abnormal intracranial enhancement. CT Neck: The thyroid gland and remaining cervical soft tissues are within normal limits. Multilevel cervical spondylosis. CT Upper Chest: The visualized lung apices and upper mediastinum are within normal limits. Neck CTA: Aortic Arch: Normal contour and caliber. Classic 3 vessel branching pattern of the aortic arch. Great Vessel Origins: No significant stenosis of the branch origins. Right Common Carotid Artery: No focal stenosis or occlusion. Cervical Right Internal Carotid Artery: Normal opacification without focal stenosis or occlusion. Left Common Carotid Artery: No focal stenosis or occlusion. Cervical Left Internal Carotid Artery: Mild calcific atherosclerotic disease of the carotid bulb and proximal internal carotid artery without flow-limiting stenosis. Cervical Right Vertebral Artery: No focal stenosis or occlusion. Cervical Left Vertebral Artery: Dominant. No focal stenosis or occlusion. Brain CTA: No significant narrowing of the intradural vertebral arteries or basilar artery with mild office chronic disease involving the proximal intradural left vertebral artery. Stable appearance of multifocal moderate to high-grade stenosis of the P1 and P2 segments of the right BIOLOGICAL INSPECTOR complex and near occlusive short segment stenosis of the P2 segment of the left BIOLOGICAL INSPECTOR measuring approximate 5 mm in length with distal reconstitution. No new arterial stenosis or large vessel occlusion in the posterior circulation. Calcific atherosclerotic disease involving the intracranial internal carotid arteries is again noted with stable moderate to high-grade stenoses of the supraclinoid ICAs. Unchanged irregularity and moderate to high-grade stenosis of the M1 segment of the right MCA complex and proximal M2 branches. The distal DREW and MCA complex appear patent and symmetric. No other high-grade arterial narrowing in the anterior circulation with multifocal luminal irregularity and mild to moderate stenosis. Normal opacification of the superior sagittal, straight, transverse, and sigmoid sinuses. CT/CT angio head neck stroke IMPRESSION: 1. No significant arterial stenosis or occlusion in the neck. 2. Extensive moderate to severe multifocal stenoses throughout the anterior and posterior intracranial circulations as detailed most notably involving the supraclinoid ICAs, M1 segment of the right MCA complex, and proximal bilateral BIOLOGICAL INSPECTOR complexes. Findings appear stable compared to CTA from 09/28/2023. No new arterial high-grade stenosis or discrete large vessel occlusion is identified. Above impression was communicated to Dr. Rosas on 12/02/2023 6:05 PM Electronically signed by: Kwesi Moise MD 12/02/2023 06:10 PM EDT
--- NOTE | 2023-12-02 17:05 | ECG_ITS ---
Test Reason : RODRISA Blood Pressure : / mmHG Vent. Rate : 074 BPM Atrial Rate : 074 BPM P-R Int : 204 ms QRS Dur : 090 ms QT Int : 416 ms P-R-T Axes : -01 -27 026 degrees QTc Int : 461 ms Normal sinus rhythm Moderate voltage criteria for LVH, may be normal variant ( R in aVL , Luis Carlos product ) Cannot rule out Anterior infarct (cited on or before 14-AUG-2019) Abnormal ECG When compared with ECG of 14-AUG-2019 08:56, Non-specific change in ST segment in Anterior leads Nonspecific T wave abnormality no longer evident in Lateral leads Referred By: Keven Rosas Electronically Signed By:TOLU CUNNINGHAM
--- NOTE | 2023-12-02 17:07 | ED.NEUROSD ---
HPI - Neuro Symptoms/Deficit General Chief Complaint: Neuro Symptoms/Deficit Stated Complaint: stroke alert, l side facial droop Time Seen by Provider: 12/02/23 17:05 Source: EMS Mode of arrival: EMS Limitations: altered mental status (Aggressive) History of Present Illness ED Provider: Dr. 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 Patient presented with new onset aphasia, left facial droop and left upper extremity weakness with last well-known time at 16:15 hours. According to the family, 1 month prior the patient had a stroke which did affect her speech. Patient's speech was comprehensible but she had a sing-song quality to her voice. The and family states that over the past 2 days this sing-song resolved and they thought that she was getting better. Today was not feeling well and this was a vague complaint. At 16:15 hours the patient then had difficulty with word finding and was having difficulty talking. The daughter did note a facial droop and an ambulance was called and the patient was brought to the emergency department. On presentation I did evaluate the patient on the french binding folder stretcher, she had a left facial droop with left arm weakness, she had an expressive aphasia. She was able to answer some questions appropriately but often her answers were incomprehensible. She was able to tell me the month was December. She did not them with a year. She was not able to tell me her birthday. She was not able to identify objects. Patient was directly to the CT scan for CT scan of the brain without contrast and CT angiogram of the head and neck. Related Data Home Medications ?Medication ?Instructions ?Recorded ?Confirmed lidocaine 4 % topical patch 1 patch topical DAILY 09/29/23 11/15/23 Previous Rx's ?Medication ?Instructions ?Recorded acetaminophen 325 mg tablet 975 mg (3 x 325 mg) PO TID PRN 02/09/23 pain #10 tabs mirabegron 25 mg tablet,extended 25 mg PO DAILY #90 tabs 03/30/23 release 24 hr (Myrbetriq) omeprazole 20 mg capsule,delayed 20 mg PO BID #180 caps 08/29/23 release metoprolol succinate 25 mg 25 mg PO DAILY #30 tabs 09/26/23 tablet,extended release 24 hr aspirin 81 mg tablet,delayed 81 mg PO DAILY #30 tabs 10/01/23 release magnesium oxide 400 mg PO DAILY #90 caps 10/21/23 low height rollator #1 ea 10/26/23 lorazepam 1 mg tablet 0.5 mg (1/2 x 1 mg) PO DAILY PRN 10/26/23 anxiety 90 days #45 tabs levetiracetam 1,000 mg tablet 1,000 mg PO BID #180 tabs 10/28/23 levothyroxine 88 mcg tablet 88 mcg PO DAILY@0600 90 days #90 10/28/23 tabs atorvastatin 80 mg tablet 80 mg PO .QD #90 tabs 11/15/23 loratadine 10 mg tablet 10 mg PO DAILY #30 tabs 11/26/23 Allergies Allergy/AdvReac Type Severity Reaction Status Date / Time hydrochlorothiazide Allergy Unknown Electrolyte Verified 12/02/23 18:09 abnormality oxycodone [OXYCODONE] Allergy Unknown VOMITTING,C Verified 12/02/23 18:09 ONFUSION amlodipine AdvReac Intermediate leg Verified 12/02/23 18:09 swelling lisinopril AdvReac Intermediate cough Verified 12/02/23 18:09 losartan AdvReac Intermediate hyponatremi Verified 12/02/23 18:09 a [facility] Past Medical History Medical History (Updated 12/02/23 @ 19:59 by Keven Rosas MD) Cerebral infarction Left leg DVT Upper respiratory infection COVID-19 virus infection Burning with urination Buttock pain Status post fall Dog bite of right arm Adult general medical exam Screening for diabetes mellitus Impacted cerumen of both ears Facial lesion Overweight (BMI 25.0-29.9) Hip osteoarthritis T12 vertebral fracture Reactive airways dysfunction syndrome Pneumonia Cholelithiasis CVA (cerebral vascular accident) Obesity (BMI 30-39.9) Hypercholesterolemia Vitamin D deficiency Hypothyroid Seizure disorder Anxiety Gout GERD (gastroesophageal reflux disease) Psoriatic arthritis Hypertension Surgical History History of Mohs surgery for squamous cell carcinoma of skin History of cataract surgery History of colonoscopy History of knee replacement procedure of right knee History of left knee replacement Family History Family History Father No problems noted. Mother Acute CVA (cerebrovascular accident) Diabetes Brother Cancer Daughter History of nephrectomy Son Heart disease Social History Social History Household Members: Children Household Members Other:: Daughter (Katie) and son-in-law Housing: House Do you presently have visiting nurse or other home services: No Alcohol intake: never Patient Tobacco Use Status: Never used Tobacco e-Cigarette/Vaping Use: Never Used Second Hand Smoke Exposure: No Advance Directives: No Advance Directives Information Provided: No Do you have a plan to hurt others: No Plan service: No Current occupational status: retired Cognitive needs: No Hearing needs: Yes (hearing aides) Vision needs: No Physical Exam Vital Signs: Vital Signs: Last Vital Signs Temp 97.7 F 12/02/23 18:34 Pulse 74 12/02/23 18:34 Resp 23 H 12/02/23 18:34 BP 177/81 H 12/02/23 18:34 Pulse Ox 99 12/02/23 18:34 O2 Del Method Room Air 12/02/23 18:34 BMI result Body Mass Index 27.9 Vital signs revealed an elevated blood pressure of 177/81 Exam: General: Awake, alert in no distress, expressive aphasia Head: Normocephalic, atraumatic EENT: PERRL, Lids normal, sclera normal, conjunctiva normal, nose normal , ears normal, throat without erythema or exudates Neck: Supple, no adenopathy Lung: breath sounds symmetric, no wheezing, rales or rhonchi Chest: symmetric movement, nontender Heart: regular rate and rhythm, normal S1, S2 no murmurs or rubs Abdomen: soft, non-tender, nondistended, normal bowel sounds Back: no vertebral tenderness, no CVAT Extremities: no deformities, moves all extremities symmetrically Neuro: General: Awake, alert, oriented to person and month, not able to state her age, date of and often, verbal responses were not comprehensible Cranial nerves: Mild left facial droop Strength: Patient was able to hold both arms up against gravity but had left-sided weakness compared to the right, patient is able to lift both legs off the stretcher but has symmetric weakness Medications Administered Discontinued Medications Generic Name Dose Route Start Last Admin Trade Name Savage PRN Reason Stop Dose Admin Iohexol 100 ml 12/02/23 17:31 12/02/23 17:32 Iohexol 350 Mg/Ml 100 Ml Infus..Btl IV 12/02/23 17:32 70 ml ONCE ONE Administration Medical Decision Making Medical Decision Making [facility] Narrative: 87-year-old female past medical history significant for TIA in 2019, hypothyroidism, migraine headaches, vitamin-D deficiency, seizure disorder on Keppra, GERD and essential hypertension, 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 The patient has expressive aphasia on presentation in the information was obtained from the patient's family. Paramedics initially reported that the patient was last well-known time was at 09:15 hours and family noted change in her symptoms at 16:15 hours. Paramedics also reported the patient is on blood thinners. Family stated that over the past 2 days her speech is improved significantly from her previous stroke and that there was an acute change at 16:15 hours which was different from the paramedics last well-known time. Also, the only blood thinner that the patient was taking his aspirin. Patient's physical examination did reveal a expressive aphasia with a left facial droop and left upper extremity weakness. The patient's NIH stroke scale was 4. Given the discrepancy in the last well-known time the patient was not a TNK candidate Differential diagnosis: ?Includes but is not limited to TIA, stroke, cerebral bleed, retrievable clot, electrolyte abnormalities, anemia Following evaluation was ordered: Stroke protocol Course: 19:46 CT of the head did not reveal acute bleed or large stroke. CT angiogram head and neck did not reveal any retrievable clots however the patient does have significant atherosclerotic disease which is unchanged from her previous study. The patient will need to be admitted for further evaluation stroke. I did discuss patient's presentation with the covering hospitalist, Dr. Mckenzie. Admission/Observation Consideration of admission/observation: Escalation of care including admission/observation considered (Yes) Lab Data [facility] Lab Attestation statement: I reviewed the patient's lab results. My interpretation patient's laboratory evaluation is as follows: Low platelet count 219493. Low sodium 132, low CO2 21. Elevated AST and ALT 47 and 184. Urinalysis was positive for leukocyte esterase. Microscopic was negative for infection. 12/02/23 17:18 12/02/23 18:06 Labs: Lab Results 12/02/23 12/02/23 12/02/23 Range/Units 08:06 17:18 18:06 WBC 5.1 (4.8-10.8) X10*3/uL RBC 4.21 (4.20-5.50) X10*6/uL Hgb 13.4 (12.0-16.0) g/dl Hct 37.6 (37.0-47.0) % MCV 89.3 (80.0-98.0) fL MCH 31.8 (27.0-33.0) pg MCHC 35.6 H (31.0-35.0) g/dl RDW 12.6 (11.0-16.0) % Plt Count 124 L D (160-400) X10*3/uL MPV 10.6 (9.4-12.3) fL Immature Gran % (Auto) 0.4 (0.0-0.4) % Neut % (Auto) 71.8 (45-73) % Lymph % (Auto) 15.6 L (20-40) % [place] % (Auto) 9.3 (2-11) % Eos % (Auto) 2.1 (0-4) % Baso % (Auto) 0.8 (0-2) % Lymph # (Auto) 0.8 L (1.2-4.9) X10*3/uL [place] # (Auto) 0.5 (0.1-1.2) X10*3/uL Eos # (Auto) 0.1 (0.0-0.4) X10*3/uL Baso # (Auto) 0.0 (0.0-0.2) X10*3/uL Abs Immat Gran (auto) 0.02 (0.00-0.03) X10*3/uL Absolute Neuts (auto) 3.7 (2.0-8.3) x10*3/uL Absolute Nucleated RBC 0.000 (0.0-0.012) X10*3/uL Nucleated RBC % (auto) 0.0 (0.0-0.2) /100WBC Smear Tech's Comments VERIFIED Hold Purple Top SEE NOTE SEE NOTE SEE NOTE PT 11.2 (11.1-13.3) SEC INR 0.9 (0.9-1.1) APTT 30.3 (26.0-36.8) SEC Sodium 132 L (135-145) mmol/L Potassium 3.4 (3.3-5.1) mmol/L Chloride 99 (96-108) mmol/L Carbon Dioxide 21 L (22-29) mmol/L Anion Gap 15 (12-20) BUN 11 (9-16) mg/dL Creatinine 0.74 (0.5-1.4) mg/dL Estim Creat Clear Calc 45.8 Estimated GFR > 60 POC Glucose (60-115) mg/dL Random Glucose 109 (60-115) mg/dL Calcium 9.4 (8.4-10.2) mg/dL Total Bilirubin 0.6 (0.0-1.0) mg/dL Direct Bilirubin 0.3 (0.0-0.5) mg/dL AST 19 (5-31) U/L ALT 47 H (0-31) U/L Alkaline Phosphatase 184 H (39-117) U/L Troponin I High Sens 12.2 (<3.5-17.0) ng/L Total Protein 7.2 (6.5-8.0) g/dL Albumin 4.3 (3.5-5.0) g/dL Triglycerides 186 H (<150) mg/dL Cholesterol 122 (<200) mg/dL LDL Cholesterol, Calc 38 (<100) mg/dL HDL Cholesterol 47 (>40) mg/dL Urine Color Urine Appearance Urine pH (5.0-9.0) Ur Specific [place] (1.005-1.025) Urine Protein (Neg-Trace) mg/dL Urine Glucose (UA) (Negative) mg/dL Urine Ketones (Negative) mg/dL Urine Blood (Negative) Urine Nitrite (Negative) Ur Leukocyte Esterase (Negative) Urine RBC (0-2) /HPF Urine WBC (0-5) /HPF Ur Squamous Epith Cells (0-2) /HPF Urine Bacteria (None Seen) Hyaline Casts (0-2) /LPF 12/02/23 12/02/23 Range/Units 18:08 18:41 WBC (4.8-10.8) X10*3/uL RBC (4.20-5.50) X10*6/uL Hgb (12.0-16.0) g/dl Hct (37.0-47.0) % MCV (80.0-98.0) fL MCH (27.0-33.0) pg MCHC (31.0-35.0) g/dl RDW (11.0-16.0) % Plt Count (160-400) X10*3/uL MPV (9.4-12.3) fL Immature Gran % (Auto) (0.0-0.4) % Neut % (Auto) (45-73) % Lymph % (Auto) (20-40) % [place] % (Auto) (2-11) % Eos % (Auto) (0-4) % Baso % (Auto) (0-2) % Lymph # (Auto) (1.2-4.9) X10*3/uL [place] # (Auto) (0.1-1.2) X10*3/uL Eos # (Auto) (0.0-0.4) X10*3/uL Baso # (Auto) (0.0-0.2) X10*3/uL Abs Immat Gran (auto) (0.00-0.03) X10*3/uL Absolute Neuts (auto) (2.0-8.3) x10*3/uL Absolute Nucleated RBC (0.0-0.012) X10*3/uL Nucleated RBC % (auto) (0.0-0.2) /100WBC Smear Tech's Comments Hold Purple Top PT (11.1-13.3) SEC INR (0.9-1.1) APTT (26.0-36.8) SEC Sodium (135-145) mmol/L Potassium (3.3-5.1) mmol/L Chloride (96-108) mmol/L Carbon Dioxide (22-29) mmol/L Anion Gap (12-20) BUN (9-16) mg/dL Creatinine (0.5-1.4) mg/dL Estim Creat Clear Calc Estimated GFR POC Glucose 111 (60-115) mg/dL Random Glucose (60-115) mg/dL Calcium (8.4-10.2) mg/dL Total Bilirubin (0.0-1.0) mg/dL Direct Bilirubin (0.0-0.5) mg/dL AST (5-31) U/L ALT (0-31) U/L Alkaline Phosphatase (39-117) U/L Troponin I High Sens (<3.5-17.0) ng/L Total Protein (6.5-8.0) g/dL Albumin (3.5-5.0) g/dL Triglycerides (<150) mg/dL Cholesterol (<200) mg/dL LDL Cholesterol, Calc (<100) mg/dL HDL Cholesterol (>40) mg/dL Urine Color Dark Yellow Urine Appearance Clear Urine pH 7.5 (5.0-9.0) Ur Specific [place] 1.025 (1.005-1.025) Urine Protein Negative (Neg-Trace) mg/dL Urine Glucose (UA) Negative (Negative) mg/dL Urine Ketones Negative (Negative) mg/dL Urine Blood Negative (Negative) Urine Nitrite Positive H (Negative) Ur Leukocyte Esterase Moderate (2+) H (Negative) Urine RBC 0-2 (0-2) /HPF Urine WBC 0-5 (0-5) /HPF Ur Squamous Epith Cells 0-2 (0-2) /HPF Urine Bacteria None Seen (None Seen) Hyaline Casts 0-2 (0-2) /LPF Radiology Impression Discussion of test interpretation with radiology: I discussed test interpretation with the radiologist and I have reviewed the radiologist's reading. Radiologist Impression: CT head/brain wo IV conYou to IMPRESSION: 1. No significant arterial stenosis or occlusion in the neck. 2. Extensive moderate to severe multifocal stenoses throughout the anterior and posterior intracranial circulations as detailed most notably involving the supraclinoid ICAs, M1 segment of the right MCA complex, and proximal bilateral BASEBALL WINDER complexes. Findings appear stable compared to CTA from 09/28/2023. No new arterial high-grade stenosis or discrete large vessel occlusion is identified. Above impression was communicated to Dr. Rosas on 12/02/2023 6:05 PM Dictated By: Kwesi Moise CT head for stroke IMPRESSION: 1. No evidence of acute intracranial hemorrhage or edematous territorial infarction. 2. Moderate underlying microangiopathy and generalized cerebral volume loss. This critical result was discussed with Dr. Rosas at 17:31 on 12/02/2023 and it was ascertained that the content and urgency of the report was understood at the time of direct communication. Dictated By: Isaias Zamorano DO NIH Stroke Scale Internal: Initial- Upon Arrival Level of Consciousness: Alert Level of Consciousness Questions: Answers one question correctly Level of Consciousness Commands: Performs both tasks correctly Best Gaze: Normal Visual: No visual loss Facial Palsy: Minor paralyis Motor Arm (Right): No drift Motor Arm (Left): Drift Motor Leg (Right): No drift Motor Leg (Left): No drift Limb Ataxia: Absent Sensory: Normal Best Language: Mild to moderate aphasia Dysarthia: Normal Extinction and Inattention: No abnormality Score: 4 Critical Care Time Critical Care Time Critical Care Time: Yes Total Critical Care Time: 45 Attestation: Critical Care: The patient was critically ill with a high probability of imminent or life threatening deterioration. I spent greater than 30 minutes of discontinuous time evaluating the patient,delivering critical care at the bedside, discussing and evaluating pertinent data with consultants. Critical care time does not include time spent performing separately billable procedures or teaching. Total time spent performing critical care was 45 minutes. Discharge Plan Discharge Prescriptions: No Action Myrbetriq 25 mg tablet extended release 24 hr 25 mg PO DAILY Qty: 90 2RF omeprazole 20 mg capsule,delayed release(DR/EC) 20 mg PO BID Qty: 180 2RF magnesium oxide 400 mg magnesium capsule 400 mg PO DAILY Qty: 90 1RF lorazepam 1 mg tablet 0.5 mg PO DAILY PRN (Reason: anxiety) 90 Days Qty: 45 1RF (DME) low height rollator See Rx Instructions .Route .MEDSUPPLY Qty: 1 0RF Rx Instructions: As directed levothyroxine 88 mcg tablet 88 mcg PO DAILY@0600 90 Days Qty: 90 1RF levetiracetam 1,000 mg tablet 1,000 mg PO BID Qty: 180 0RF loratadine 10 mg tablet 10 mg PO DAILY Qty: 30 5RF lidocaine 4 % Adhesive Patch,Medicated 1 patch TOPICAL DAILY aspirin 81 mg Tablet,Delayed Release (Dr/Ec) 81 mg PO DAILY Qty: 30 0RF atorvastatin 80 mg tablet 80 mg PO .QD Qty: 90 2RF acetaminophen 325 mg tablet 975 mg PO TID PRN (Reason: pain) Qty: 10 0RF metoprolol succinate 25 mg tablet extended release 24 hr 25 mg PO DAILY Qty: 30 3RF Print Language: Maldivian
[2023-12-02] MEDS: iohexoL 350 MG/ML 100 ML INFUS..BTL IV (17:32)
[2023-12-02 17:38] VITALS: BP 151/82; PULSE 92
[2023-12-02 17:53] LABS: Basophils Percent Auto 0.8 % (0-2); Eosinophils Absolute Auto 0.1 X10*3/uL (0.0-0.4); Eosinophils Percent Auto 2.1 % (0-4); Hematocrit 37.6 % (37.0-47.0); Hemoglobin 13.4 g/dl (12.0-16.0); Imm Gran Abs Auto 0.02 X10*3/uL (0.00-0.03); Imm Gran Pct Auto 0.4 % (0.0-0.4); Lymphocytes Absolute Auto 0.8 X10*3/uL (1.2-4.9); Lymphocytes Percent Auto 15.6 % (20-40); Mean Corpuscular HGB Conc 35.6 g/dl (31.0-35.0); Mean Corpuscular Hemoglobin 31.8 pg (27.0-33.0); Mean Corpuscular Volume 89.3 fL (80.0-98.0); Mean Platelet Volume 10.6 fL (9.4-12.3); Monocytes Absolute Auto 0.5 X10*3/uL (0.1-1.2); Monocytes Percent Auto 9.3 % (2-11); Neutrophils Absolute Auto 3.7 x10*3/uL (2.0-8.3); Neutrophils Percent Auto 71.8 % (45-73); PLT CLUMP 1; Red Blood Count 4.21 X10*6/uL (4.20-5.50); Red Cell Distribution Width 12.6 % (11.0-16.0); SCAN SMEAR FLAG 1
[2023-12-02 18:09] VITALS: BP 174/71; PULSE 76; RESP 14; TEMP 36.4; O2SAT 98; BMI 27.9
[2023-12-02 18:15] LABS: Platelet Count 124 X10*3/uL (160-400); White Blood Count 5.1 X10*3/uL (4.8-10.8)
[2023-12-02 18:16] LABS: MANUAL DIFF FLAG SCAN; SLIDE REVIEW VERIFIED
[2023-12-02 18:21] LABS: INTERNATIONAL NORM RATIO 0.9 (0.9-1.1); Prothrombin Time 11.2 SEC (11.1-13.3)
[2023-12-02 18:24] LABS: Partial Thromboplastin Time 30.3 SEC (26.0-36.8)
[2023-12-02 18:25] LABS: Stroke Lab Use COMPLETE
[2023-12-02 18:29] LABS: Alanine Aminotransferase 47 U/L (0-31); Albumin Level 4.3 g/dL (3.5-5.0); Alkaline Phosphatase 184 U/L (39-117); Anion Gap 15 (12-20); Aspartate Amino Transferase 19 U/L (5-31); Bilirubin Direct 0.3 mg/dL (0.0-0.5); Bilirubin Total 0.6 mg/dL (0.0-1.0); Blood Urea Nitrogen 11 mg/dL (9-16); Calcium 9.4 mg/dL (8.4-10.2); Carbon Dioxide 21 mmol/L (22-29); Chloride 99 mmol/L (96-108); Cholesterol 122 mg/dL (<200); Creatinine Clr Calc Pharmacy 45.8; Estimated Glomerular Filt Rate > 60; Glucose Random 109 mg/dL (60-115); HDL Cholesterol 47 mg/dL (>40); LDL Cholesterol Calculated 38 mg/dL (<100); Potassium 3.4 mmol/L (3.3-5.1); Sodium 132 mmol/L (135-145); Total Protein 7.2 g/dL (6.5-8.0); Triglycerides 186 mg/dL (<150)
--- NOTE | 2023-12-02 18:29 | PC.NURSE ---
brought in by ambulance for stroke alert, recent admission for cva. patient moving all extremities in tremulous movements. IV established during ct scan. upon arrival, patient was answering questions slowly in a sing song way, continues to sing song answers however is at this time answering questions appropriately. family at bedside stating that she has had these episodes of sing song responses as of late. patient is in room able to move all extremities and answering questions appropriately but slowly. assisted to the bedpan to urinate, linens changed and repositioned in bed.
[2023-12-02 18:34] VITALS: BP 177/81; PULSE 74; RESP 23; TEMP 36.5; O2SAT 99
[2023-12-02 18:34] LABS: Glucose, Whole Blood 111 mg/dL (60-115)
[2023-12-02 18:36] LABS: Troponin-I High Sensitivity 12.2 ng/L (<3.5-17.0)
--- NOTE | 2023-12-02 18:47 | MHC.EDTECH ---
Proper equipment was not available in stroke box. Not able to do the PT INR Nurse Aware
[2023-12-02 18:53] LABS: Appearance Urine Clear; Color Urine Dark Yellow; Glucose Urine UA Negative (Negative); Leukocyte Esterase Urine Moderate (2+) (Negative); Nitrite Urine Positive (Negative); PH 7.5 (5.0-9.0); Specific Gravity - Urine 1.025 (1.005-1.025); UMIC TRIGGER UACC YES; Urine Blood Negative (Negative); Urine Ketones Negative (Negative); Urine Protein Negative (Neg-Trace)
[2023-12-02 19:04] LABS: Bacteria Urine None Seen (None Seen); Hyaline Casts Urine 0-2 /LPF (0-2); RBC Urine 0-2 /HPF (0-2); Squamous Epithelial Cell Urine 0-2 /HPF (0-2); UACC Culture Trigger YES; WBC Urine 0-5 /HPF (0-5)
--- NOTE | 2023-12-02 20:18 | PM.IMHP ---
History of Present Illness Date of Service: 12/02/23 Chief Complaint: Facial droop and aphasia This is a 87-year-old female with pertinent history of CVA, hypothyroidism, seizure disorder, gastroesophageal reflux disease, hypertension who was brought to the emergency department for concerns of aphasia and facial droop. History was obtained with the help of family at bedside. Of note, patient was recently admitted with acute CVA and discharged on 09/30. Last known normal was on the morning of day of presentation. Patient in the evening was found to be word-finding difficulty and inability to have a conversation. Also the daughter noted facial droop. EMS was called who did notice expressive aphasia and facial droop. Unable to obtain review of systems. In the emergency department, CT head and CTA head and neck obtained. Review of Systems Review of Systems: Yes Unobtainable due to mental condition [facility] Medical History (Updated 12/02/23 @ 20:23 by Palak Mckenzie MD) Cerebral infarction Left leg DVT Upper respiratory infection COVID-19 virus infection Burning with urination Buttock pain Status post fall Dog bite of right arm Adult general medical exam Screening for diabetes mellitus Impacted cerumen of both ears Facial lesion Overweight (BMI 25.0-29.9) Hip osteoarthritis T12 vertebral fracture Reactive airways dysfunction syndrome Pneumonia Cholelithiasis CVA (cerebral vascular accident) Obesity (BMI 30-39.9) Hypercholesterolemia Vitamin D deficiency Hypothyroid Seizure disorder Anxiety Gout GERD (gastroesophageal reflux disease) Psoriatic arthritis Hypertension Family History Father No problems noted. Mother Acute CVA (cerebrovascular accident) Diabetes Brother Cancer Daughter History of nephrectomy Son Heart disease Surgical History History of Mohs surgery for squamous cell carcinoma of skin History of cataract surgery History of colonoscopy History of knee replacement procedure of right knee History of left knee replacement Social History Household Members: Children Household Members Other:: Daughter (Katie) and son-in-law Housing: House Do you presently have visiting nurse or other home services: No Alcohol intake: never Patient Tobacco Use Status: Never used Tobacco e-Cigarette/Vaping Use: Never Used Second Hand Smoke Exposure: No Advance Directives: No Advance Directives Information Provided: No Do you have a plan to hurt others: No Plan service: No Current occupational status: retired Cognitive needs: No Hearing needs: Yes (hearing aides) Vision needs: No Meds Allergies Allergy/AdvReac Type Severity Reaction Status Date / Time hydrochlorothiazide Allergy Unknown Electrolyte Verified 12/02/23 18:09 abnormality oxycodone [OXYCODONE] Allergy Unknown VOMITTING,C Verified 12/02/23 18:09 ONFUSION amlodipine AdvReac Intermediate leg Verified 12/02/23 18:09 swelling lisinopril AdvReac Intermediate cough Verified 12/02/23 18:09 losartan AdvReac Intermediate hyponatremi Verified 12/02/23 18:09 a Home Medications ?Medication ?Instructions ?Recorded ?Confirmed ?Last Taken ?Type lidocaine 4 % topical patch 1 patch topical DAILY 09/29/23 11/15/23 09/28/23 History Physical Exam Vital Signs and Narrative: Vital Signs: Last Vital Signs Temp 97.7 F 12/02/23 18:34 Pulse 74 12/02/23 18:34 Resp 23 H 12/02/23 18:34 BP 177/81 H 12/02/23 18:34 Pulse Ox 99 12/02/23 18:34 O2 Del Method Room Air 12/02/23 18:34 BMI result Body Mass Index 27.9 Elderly female lying in bed in no distress Neck supple, no JVD Regular rate and rhythm, S1-S2 heard Regular breath sounds bilaterally, no wheezing or crackles appreciated Abdomen soft nontender, no guarding, no rigidity Patient is awake, alert and unable to assess orientation ; expressive aphasia and left-sided facial droop present, following commands, strength equal in bilateral upper and lower extremity, no pronator drift Psych: Normal mood No pedal edema Results Labs 12/02/23 17:18 12/02/23 18:06 Labs: Laboratory Results - last 24 hr 12/02/23 12/02/23 12/02/23 08:06 17:18 18:06 MCV 89.3 MCH 31.8 MCHC 35.6 H RDW 12.6 Plt Count 124 L D MPV 10.6 Immature Gran % (Auto) 0.4 Neut % (Auto) 71.8 Lymph % (Auto) 15.6 L [place] % (Auto) 9.3 Eos % (Auto) 2.1 Baso % (Auto) 0.8 Lymph # (Auto) 0.8 L [place] # (Auto) 0.5 Eos # (Auto) 0.1 Baso # (Auto) 0.0 Abs Immat Gran (auto) 0.02 Absolute Neuts (auto) 3.7 Absolute Nucleated RBC 0.000 Nucleated RBC % (auto) 0.0 Smear Tech's Comments VERIFIED Hold Purple Top SEE NOTE SEE NOTE SEE NOTE PT 11.2 INR 0.9 APTT 30.3 Anion Gap 15 Estim Creat Clear Calc 45.8 Estimated GFR > 60 POC Glucose Random Glucose 109 Calcium 9.4 Total Bilirubin 0.6 Direct Bilirubin 0.3 AST 19 ALT 47 H Alkaline Phosphatase 184 H Troponin I High Sens 12.2 Total Protein 7.2 Albumin 4.3 Triglycerides 186 H Cholesterol 122 LDL Cholesterol, Calc 38 HDL Cholesterol 47 Urine Color Urine Appearance Urine pH Ur Specific [place] Urine Protein Urine Glucose (UA) Urine Ketones Urine Blood Urine Nitrite Ur Leukocyte Esterase Urine RBC Urine WBC Ur Squamous Epith Cells Urine Bacteria Hyaline Casts 12/02/23 12/02/23 18:08 18:41 MCV MCH MCHC RDW Plt Count MPV Immature Gran % (Auto) Neut % (Auto) Lymph % (Auto) [place] % (Auto) Eos % (Auto) Baso % (Auto) Lymph # (Auto) [place] # (Auto) Eos # (Auto) Baso # (Auto) Abs Immat Gran (auto) Absolute Neuts (auto) Absolute Nucleated RBC Nucleated RBC % (auto) Smear Tech's Comments Hold Purple Top PT INR APTT Anion Gap Estim Creat Clear Calc Estimated GFR POC Glucose 111 Random Glucose Calcium Total Bilirubin Direct Bilirubin AST ALT Alkaline Phosphatase Troponin I High Sens Total Protein Albumin Triglycerides Cholesterol LDL Cholesterol, Calc HDL Cholesterol Urine Color Dark Yellow Urine Appearance Clear Urine pH 7.5 Ur Specific [place] 1.025 Urine Protein Negative Urine Glucose (UA) Negative Urine Ketones Negative Urine Blood Negative Urine Nitrite Positive H Ur Leukocyte Esterase Moderate (2+) H Urine RBC 0-2 Urine WBC 0-5 Ur Squamous Epith Cells 0-2 Urine Bacteria None Seen Hyaline Casts 0-2 Imaging Radiologist's Impressions: Impressions Head CT 12/02/23 17:05 IMPRESSION: 1. No evidence of acute intracranial hemorrhage or edematous territorial infarction. 2. Moderate underlying microangiopathy and generalized cerebral volume loss. This critical result was discussed with Dr. Rosas at 17:31 on 12/02/2023 and it was ascertained that the content and urgency of the report was understood at the time of direct communication. Electronically signed by: Ralph Zamorano DO 12/02/2023 05:41 PM EDT RP Head/Neck CTA 12/02/23 17:11 IMPRESSION: 1. No significant arterial stenosis or occlusion in the neck. 2. Extensive moderate to severe multifocal stenoses throughout the anterior and posterior intracranial circulations as detailed most notably involving the supraclinoid ICAs, M1 segment of the right MCA complex, and proximal bilateral JEEP MECHANIC complexes. Findings appear stable compared to CTA from 09/28/2023. No new arterial high-grade stenosis or discrete large vessel occlusion is identified. Above impression was communicated to Dr. Rosas on 12/02/2023 6:05 PM Electronically signed by: Kwesi Moise MD 12/02/2023 06:10 PM EDT RP Assessment and Plan (1) Facial droop: Status: Acute (2) Expressive aphasia: Status: Acute Plan This is a 87-year-old female with pertinent history of CVA, hypothyroidism, seizure disorder, gastroesophageal reflux disease, hypertension who was brought to the emergency department for concerns of aphasia and facial droop. #. Expressive aphasia and facial droop, concerning for acute CVA: Will admit patient with cardiac monitoring. Obtaining MRI to and consulting Neurology. Also obtaining lipid panel, A1c and echocardiogram to complete workup. Given aspirin in the ER. Patient is on high-intensity statin. Consulted PT/OT to evaluate and treat. NPO until patient passes swallow screen #. Hypothyroidism: Continue Synthroid once able to take p.o. #. Seizure disorder: Change Keppra to IV #. Hypertension: Hold home p.o. antihypertensives to allow for permissive hypertension #. Gastroesophageal reflux disease: On PPI Med rec pending DVT prophylaxis: Lovenox Full code Admit as inpatient and will require two night minimum hospital stay for evaluation and management of acute CVA (as above), which is not possible in a lesser acute setting. Specialist consult pending Quality Stroke Does the patient have a stroke diagnosis?: Yes Reason for No Anti-thrombotic by Day Two: N/A - Med Ordered VTE Prior VTE?: No VTE Risk Level:: Medical - moderate - high VTE Device Contraindication: Treatment Not Indicated VTE Drug Contraindication: N/A - Med Ordered
[2023-12-02] MEDS: Aspirin 300 MG SUPP.RECT PR (20:44)
[2023-12-02] MEDS: levETIRAcetam in NaCl (iso-os) 1,000 MG/100 ML PIGGYBACK 400 MG IV (20:45)
[2023-12-02] MEDS: Enoxaparin Sodium 40 MG/0.4 ML SYRINGE SUBCUT (20:45)
--- NOTE | 2023-12-02 21:48 | PC.NURSE ---
assumed care of pt at 1900 - pt pass swallow eval done by MERARI Santos - pt incontinent of urine and stool cleaned up and linens changed. purewick in place. on shelter monitor resting comfortably. pt is alert, pleasantly confused, inappropriate words/speech, pt singing in song. denies acute pain but answers yes or no questions to staff .
[2023-12-02] MEDS: methocarbamoL 750 MG TABLET PO (22:10)
[2023-12-02 22:49] VITALS: BP 151/75
[2023-12-03 01:11] VITALS: BP 164/82; PULSE 74; RESP 20; TEMP 36.9; O2SAT 92
[2023-12-03 03:20] VITALS: BP 156/78; PULSE 95; RESP 20; TEMP 37.4; O2SAT 99
--- NOTE | 2023-12-03 07:00 | CA_ITS ---
Transthoracic Echocardiogram Patient (Last, First, Middle): Ankita Dorado M Gender: Female Date of : 1935 Age: 87 Procedure Date: 12/03/2023 Procedure Type: Transthoracic Echocardiogram Location: [facility] [place] Height: 152.4 cm Weight: 64.41 kg BSA: 1.61 m2 Heart Rate: bpm BP: 156 / 78 mmHg Terrazzo Helper: CARTER Referring MD: Palak Mckenzie MD Notary Public: Angel Day MD Symptoms: CVA Study Quality: Technically Difficult ECG Rhythm: Sinus Conclusions: - 1. Technically limited study due to patient related issues 2. Normal LV ejection fraction of 60 65% with impaired relaxation filling pattern 3. Moderate mitral annular calcification, cardiac valvular Dopplers within normal limits 4. Normal RV systolic pressure 5. No gross pericardial effusion Findings Procedure Information The study quality is limited by the patients inability to tolerate the test and an uncooperative patient. The patient declines contrast. Left Ventricle The left ventricle was not well visualized. Normal left ventricular cavity size. There is normal left ventricular wall thickness. The left ventricular systolic function is normal. The visually estimated ejection fraction is between 60-65%. Regional wall motion abnormalities can not be excluded due to suboptimal endocardial definition. Spectral Doppler is indicative of an impaired relaxation filling pattern. Right Ventricle The right ventricle was not well visualized. Atria The left atrium is normal in size. There is lipomatous hypertrophy of the interatrial septum. Interatrial shunt cannot be excluded. The right atrium was not well visualized. Aortic Valve The aortic valve was not well visualized. There is mild calcification of the aortic valve. There is no aortic valve regurgitation. Mitral Valve There is mild anterior and moderate posterior mitral leaflet thickening. There is moderate mitral annular calcification. There is trace mitral valve regurgitation. There is no mitral valve stenosis. Pulmonic Valve The pulmonic valve was not well visualized. Tricuspid Valve Likely normal tricuspid valve structure and function. There is mild tricuspid valve regurgitation. The right ventricular systolic pressure is normal. The right ventricular systolic pressure is 32 mmHg. Normal right atrial pressure. There is no evidence of pulmonary hypertension. Great Vessels The aorta was not well visualized. The pulmonary artery was not well visualized. Small plaque is seen in the sino tubular ridge. Venous The inferior vena cava is normal in size and collapses greater than 50% with inspiration. Pericardium/Pleural There is no evidence of pericardial effusion. Prior Study Comparison No significant change compared to prior study dated: 11/09/2018. Measurements 2D Linear Measurements IVSd: 1.08 0.6-0.9/0.6-1.0 cm LVIDd: 3.26 3.9-5.3/4.2-5.9 cm LVIDd Index: 2.02 2.4-3.2/2.2-3.1 cm/m2 LVIDs: 1.89 2.0-3.6 cm LVPWd: 0.95 0.7-1.1 cm LA Diam: 2.90 2.7-3.8/3.0-4.0 cm LAIDs Index: 1.80 1.5-2.3 cm/m2 LV Mass: 118.10 67-162/88-224 g LV Mass Index: 73.35 43-95/49-115 g/m2 LVOT Diam: 1.90 3.0+(-)1.3 cm Mitral Valve MV Pk E: 0.64 MV PK A: 0.93 MV Decel Time: 284.00 E/A: 0.70 E'Lateral: 6.42 E'Medial: 4.35 E/E' Med: 14.80 E/E' Lat: 10.00 PHT: 83.00 MVA PHT: 2.65 Decel [place]: 2.27 Aortic Valve AoV Pk Gary: 1.24 AoV Mn Gary: 0.94 AoV VTI: 0.26 AoV Pk Grad: 6.00 Aov Mn Grad: 4.00 TREVER Cont.VTI: 1.99 LVOT LVOT Pk Gary: 0.96 LVOT Mn Gary: 0.73 LVOT VTI: 0.18 LVOT Pk Grad: 4.00 LVOT Mn Grad: 2.00 LVOT Diam: 1.90 LVOT Area: 2.84 Diastolic Function MV Pk E: 0.64 MV Pk A: 0.93 E/A: 0.70 E'Medial: 4.35 E/E' Med: 14.80 E' Laterial: 6.42 E/E' Lat: 10.00 Right Ventricle TAPSE (mm): 15.90 TVS' Gary: 11.30 Tricuspid Valve TR Pk Gary: 2.47 TR Pk Grad: 24.00 RA Press: 8.00 RVSP: 32.00 Great Vessels Aorta Sinus of Valsalva: 3.10 2.0-3.[address] [place]: 2.20 1.7-3.4 cm Updated in Other Vendor System with Status of Final Angel Day MD electronically signed on 12/03/2023 12:50:16 PM with status of Final
[2023-12-03 08:00] VITALS: BP 143/83; PULSE 71; RESP 18; TEMP 36.6; O2SAT 99
[2023-12-03 08:01] LABS: Basophils Absolute Auto 0.1 X10*3/uL (0.0-0.2); Basophils Percent Auto 0.6 % (0-2); Eosinophils Absolute Auto 0.1 X10*3/uL (0.0-0.4); Eosinophils Percent Auto 0.9 % (0-4); Hematocrit 41.7 % (37.0-47.0); Hemoglobin 14.3 g/dl (12.0-16.0); Imm Gran Abs Auto 0.03 X10*3/uL (0.00-0.03); Imm Gran Pct Auto 0.4 % (0.0-0.4); Lymphocytes Absolute Auto 0.6 X10*3/uL (1.2-4.9); Lymphocytes Percent Auto 7.8 % (20-40); MANUAL DIFF FLAG NO; Mean Corpuscular HGB Conc 34.3 g/dl (31.0-35.0); Mean Corpuscular Hemoglobin 30.8 pg (27.0-33.0); Mean Corpuscular Volume 89.9 fL (80.0-98.0); Mean Platelet Volume 10.8 fL (9.4-12.3); Monocytes Absolute Auto 0.7 X10*3/uL (0.1-1.2); Monocytes Percent Auto 8.6 % (2-11); Neutrophils Absolute Auto 6.6 x10*3/uL (2.0-8.3); Neutrophils Percent Auto 81.7 % (45-73); Platelet Count 180 X10*3/uL (160-400); Red Blood Count 4.64 X10*6/uL (4.20-5.50); Red Cell Distribution Width 12.7 % (11.0-16.0)
[2023-12-03 08:19] LABS: Estimated Average Glucose 100 mg/dL; Hemoglobin A1c % 5.1 % (<6.0)
[2023-12-03 08:22] LABS: Anion Gap 13 (12-20); Blood Urea Nitrogen 8 mg/dL (9-16); Calcium 9.5 mg/dL (8.4-10.2); Carbon Dioxide 23 mmol/L (22-29); Chloride 101 mmol/L (96-108); Creatinine Clr Calc Pharmacy 44.6; Estimated Glomerular Filt Rate > 60; Glucose Random 88 mg/dL (60-115); Potassium 3.1 mmol/L (3.3-5.1); Sodium 134 mmol/L (135-145)
--- NOTE | 2023-12-03 10:20 | P.PNIM_ITS ---
Subjective Subjective Date of Service: 12/03/23 Review of Systems Follow up stroke symptoms expressive aphagia no pain Physical Exam 2 Vital Signs: Vital Signs: Last Vital Signs Temp 97.9 F 12/03/23 08:00 Pulse 71 12/03/23 08:00 Resp 18 12/03/23 08:00 BP 143/83 H 12/03/23 08:00 Pulse Ox 99 12/03/23 08:00 O2 Del Method Room Air 12/03/23 08:00 BMI result Body Mass Index 27.9 Appearing in no acute distress lung sounds are clear to auscultation heart regular rate rhythm, clear S1, S2 positive bowel sounds, abdomen is soft, nontender neuro patient is alert, expressive aphagia Objective Data Active Medications Acetaminophen (Acetaminophen 325 Mg Tablet) 650 mg PO Q6H PRN PRN Reason: Pain, Mild (Pain Scale 1-3), fever or headache Calcium Carbonate (Calcium Carbonate 750 Mg Tab.Chew) 750 mg PO Q4H PRN PRN Reason: Heartburn Enoxaparin Sodium (Enoxaparin Sodium 40 Mg/0.4 Ml Syringe) 40 mg SUBCUT Q24H [facility] Last Admin: 12/02/23 20:45 Dose: 40 mg Documented By: MOISÉS Levetiracetam (Levetiracetam 1,000 Mg Tablet) 1,000 mg PO BID [facility] Magnesium Hydroxide (Milk Of Magnesia 30 Ml Oral.Susp) 30 ml PO DAILY PRN PRN Reason: Constipation Melatonin (Melatonin 3 Mg Tablet) 6 mg PO BEDTIME PRN PRN Reason: Insomnia Ondansetron HCl (Ondansetron Hcl 4 Mg/2 Ml Vial) 4 mg IVPUSH Q8H PRN PRN Reason: Nausea and Vomiting Labs 12/03/23 05:33 12/03/23 05:33 Labs: Laboratory Results - last 24 hr 12/02/23 12/02/23 12/02/23 08:06 17:18 18:06 MCV 89.3 MCH 31.8 MCHC 35.6 H RDW 12.6 Plt Count 124 L D MPV 10.6 Immature Gran % (Auto) 0.4 Neut % (Auto) 71.8 Lymph % (Auto) 15.6 L [place] % (Auto) 9.3 Eos % (Auto) 2.1 Baso % (Auto) 0.8 Lymph # (Auto) 0.8 L [place] # (Auto) 0.5 Eos # (Auto) 0.1 Baso # (Auto) 0.0 Abs Immat Gran (auto) 0.02 Absolute Neuts (auto) 3.7 Absolute Nucleated RBC 0.000 Nucleated RBC % (auto) 0.0 Smear Tech's Comments VERIFIED Hold Purple Top SEE NOTE SEE NOTE SEE NOTE PT 11.2 INR 0.9 APTT 30.3 Anion Gap 15 Estim Creat Clear Calc 45.8 Estimated GFR > 60 POC Glucose Random Glucose 109 Estimat Average Glucose Hemoglobin A1c % Calcium 9.4 Total Bilirubin 0.6 Direct Bilirubin 0.3 AST 19 ALT 47 H Alkaline Phosphatase 184 H Troponin I High Sens 12.2 Total Protein 7.2 Albumin 4.3 Triglycerides 186 H Cholesterol 122 LDL Cholesterol, Calc 38 HDL Cholesterol 47 Urine Color Urine Appearance Urine pH Ur Specific [place] Urine Protein Urine Glucose (UA) Urine Ketones Urine Blood Urine Nitrite Ur Leukocyte Esterase Urine RBC Urine WBC Ur Squamous Epith Cells Urine Bacteria Hyaline Casts 12/02/23 12/02/23 12/03/23 18:08 18:41 05:33 MCV 89.9 MCH 30.8 MCHC 34.3 RDW 12.7 Plt Count 180 D MPV 10.8 Immature Gran % (Auto) 0.4 Neut % (Auto) 81.7 H Lymph % (Auto) 7.8 L [place] % (Auto) 8.6 Eos % (Auto) 0.9 Baso % (Auto) 0.6 Lymph # (Auto) 0.6 L [place] # (Auto) 0.7 Eos # (Auto) 0.1 Baso # (Auto) 0.1 Abs Immat Gran (auto) 0.03 Absolute Neuts (auto) 6.6 Absolute Nucleated RBC 0.000 Nucleated RBC % (auto) 0.0 Smear Tech's Comments Hold Purple Top PT INR APTT Anion Gap 13 Estim Creat Clear Calc 44.6 Estimated GFR > 60 POC Glucose 111 Random Glucose 88 Estimat Average Glucose 100 Hemoglobin A1c % 5.1 Calcium 9.5 Total Bilirubin Direct Bilirubin AST ALT Alkaline Phosphatase Troponin I High Sens Total Protein Albumin Triglycerides Cholesterol LDL Cholesterol, Calc HDL Cholesterol Urine Color Dark Yellow Urine Appearance Clear Urine pH 7.5 Ur Specific [place] 1.025 Urine Protein Negative Urine Glucose (UA) Negative Urine Ketones Negative Urine Blood Negative Urine Nitrite Positive H Ur Leukocyte Esterase Moderate (2+) H Urine RBC 0-2 Urine WBC 0-5 Ur Squamous Epith Cells 0-2 Urine Bacteria None Seen Hyaline Casts 0-2 Assessment and Plan (1) Expressive aphasia: Status: Acute Plan This is a 87-year-old female with pertinent history of CVA, hypothyroidism, seizure disorder, gastroesophageal reflux disease, hypertension who was brought to the emergency department for concerns of aphasia and facial droop. Expressive aphasia and facial droop, concerning for acute CVA MRI consulting Neurology Given aspirin in the ER. Patient is on high-intensity statin. Consulted PT/OT to evaluate and treat. Hypokalemia Repleted with oral potassium Hypothyroidism Continue Synthroid Seizure disorder Keppra 1000mg BID Hypertension Hold home p.o. antihypertensives to allow for permissive hypertension Gastroesophageal reflux disease On PPI DVT prophylaxis: Evelyn Attending Dr. Martinez Full code Quality Stroke Does the patient have a stroke diagnosis?: Yes Reason for No Anti-thrombotic by Day Two: N/A - Med Ordered VTE Prior VTE?: No VTE Risk Level:: Medical - moderate - high VTE Device Contraindication: Treatment Not Indicated VTE Drug Contraindication: N/A - Med Ordered
[2023-12-03] MEDS: levETIRAcetam 1,000 MG TABLET 1000 MG PO (10:31)
--- NOTE | 2023-12-03 11:15 | PM.NEUROCN ---
History of Present Illness Data of Consult Service Date: 12/03/23 Primary Care Provider: Marie Villanueva MD [facility] Reason for consult: Difficulty speaking 87 years old woman with extensive moderately severe intracranial vascular atherosclerotic disease causing stenosis and moderate to severe microvascular type ischemic disease of brain, in addition also has moderately severe diffuse cerebral atrophy, has developed difficulty speaking during last few months. She was in hospital with same complaint. There was no associated arm or leg weakness or headache. No overt seizure was noted. Her daughter stated that yesterday she was continuously talking for many hours and then could not speak. I saw her today after she had the MRI of brain. Review of Systems Review of Systems: No recent cold or flu-like illness or headache. She was living with a daughter not under significant stress except that a dog she used to care for has recently. Family has obtained new puppy, which she has not seen yet PMFSH Past Medical History Medical History (Updated 12/03/23 @ 11:26 by Dimitri Sawant MD) Cerebral infarction Left leg DVT Upper respiratory infection COVID-19 virus infection Burning with urination Buttock pain Status post fall Dog bite of right arm Adult general medical exam Screening for diabetes mellitus Impacted cerumen of both ears Facial lesion Overweight (BMI 25.0-29.9) Hip osteoarthritis T12 vertebral fracture Reactive airways dysfunction syndrome Pneumonia Cholelithiasis CVA (cerebral vascular accident) Obesity (BMI 30-39.9) Hypercholesterolemia Vitamin D deficiency Hypothyroid Seizure disorder Anxiety Gout GERD (gastroesophageal reflux disease) Psoriatic arthritis Hypertension Family History Family History Father No problems noted. Mother Acute CVA (cerebrovascular accident) Diabetes Brother Cancer Daughter History of nephrectomy Son Heart disease Surgical History Surgical History History of Mohs surgery for squamous cell carcinoma of skin History of cataract surgery History of colonoscopy History of knee replacement procedure of right knee History of left knee replacement Social History Social History Household Members: Family Household Members Other:: Daughter (Katie) and son-in-law Housing: House Alcohol intake: never Patient Tobacco Use Status: Never used Tobacco Smoked in Last 30 Days: No e-Cigarette/Vaping Use: Never Used Second Hand Smoke Exposure: No Use of substances other than those prescribed or required for medical reasons: No Currently Displaying Signs/Symptoms of Drug Intoxication Withdrawal: No Have you been hit, kicked, punched, or otherwise hurt by someone within the past year? If so, by whom?: No Do you feel safe in your current relationship?: Yes Is there a partner from a previous relationship who is making you feel unsafe now?: No Are you made to feel afraid or neglected: No Advance Directives: No Advance Directives Information Provided: No Do you have a plan to hurt others: No Plan Recently lost weight without trying: No Eating poorly because of decreased appetite: No Nutrition Risks: On aspiration precautions Patient : No : No Poor oral hygiene: No service: No Current occupational status: retired Cognitive needs: No Hearing needs: Yes (hearing aides) Vision needs: No Meds Allergies Allergy/AdvReac Type Severity Reaction Status Date / Time hydrochlorothiazide Allergy Unknown Electrolyte Verified 12/02/23 18:09 abnormality oxycodone [OXYCODONE] Allergy Unknown VOMITTING,C Verified 12/02/23 18:09 ONFUSION amlodipine AdvReac Intermediate leg Verified 12/02/23 18:09 swelling lisinopril AdvReac Intermediate cough Verified 12/02/23 18:09 losartan AdvReac Intermediate hyponatremi Verified 12/02/23 18:09 a Active Medications: Current Medications Acetaminophen (Acetaminophen 325 Mg Tablet) 650 mg PO Q6H PRN PRN Reason: Pain, Mild (Pain Scale 1-3), fever or headache Calcium Carbonate (Calcium Carbonate 750 Mg Tab.Chew) 750 mg PO Q4H PRN PRN Reason: Heartburn Enoxaparin Sodium (Enoxaparin Sodium 40 Mg/0.4 Ml Syringe) 40 mg SUBCUT Q24H [facility] Last Admin: 12/02/23 20:45 Dose: 40 mg Levetiracetam (Levetiracetam 1,000 Mg Tablet) 1,000 mg PO BID [facility] Last Admin: 12/03/23 10:31 Dose: 1,000 mg Magnesium Hydroxide (Milk Of Magnesia 30 Ml Oral.Susp) 30 ml PO DAILY PRN PRN Reason: Constipation Melatonin (Melatonin 3 Mg Tablet) 6 mg PO BEDTIME PRN PRN Reason: Insomnia Ondansetron HCl (Ondansetron Hcl 4 Mg/2 Ml Vial) 4 mg IVPUSH Q8H PRN PRN Reason: Nausea and Vomiting Home Medications ?Medication ?Instructions ?Recorded ?Confirmed ?Last Taken ?Type lidocaine 4 % topical patch 1 patch topical DAILY 09/29/23 11/15/23 09/28/23 History Physical Exam Vital Signs: Vital Signs: Last Vital Signs Temp 97.9 F 12/03/23 08:00 Pulse 71 12/03/23 08:00 Resp 18 12/03/23 08:00 BP 143/83 H 12/03/23 08:00 Pulse Ox 99 12/03/23 08:00 O2 Del Method Room Air 12/03/23 08:00 BMI result Body Mass Index 27.9 Neuro: Other: She is alert and awake with slightly decreased spontaneity and fluency of speech. Speech is pressured and with varying tones. Comprehension is intact. She is able to repeat. She is able to name. Face Results Labs 12/03/23 05:33 12/03/23 05:33 Labs: Short CBC 12/02/23 12/03/23 Range/Units 17:18 05:33 WBC 5.1 8.0 (4.8-10.8) X10*3/uL Hgb 13.4 14.3 (12.0-16.0) g/dl Hct 37.6 41.7 (37.0-47.0) % Plt Count 124 L D 180 D (160-400) X10*3/uL BMP 12/02/23 12/03/23 18:06 05:33 Sodium 132 L 134 L Potassium 3.4 3.1 L Chloride 99 101 Carbon Dioxide 21 L 23 BUN 11 8 L Creatinine 0.74 0.76 Calcium 9.4 9.5 Liver Function 12/02/23 Range/Units 18:06 Total Bilirubin 0.6 (0.0-1.0) mg/dL Direct Bilirubin 0.3 (0.0-0.5) mg/dL AST 19 (5-31) U/L ALT 47 H (0-31) U/L Alkaline Phosphatase 184 H (39-117) U/L Albumin 4.3 (3.5-5.0) g/dL Urine 12/02/23 Range/Units 18:41 Urine Color Dark Yellow Urine Appearance Clear Urine pH 7.5 (5.0-9.0) Ur Specific [place] 1.025 (1.005-1.025) Urine Protein Negative (Neg-Trace) mg/dL Urine Glucose (UA) Negative (Negative) mg/dL MRI of brain did not reveal any acute abnormality. 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 I recommend an ENT evaluation and speech therapy. 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 The treatment for that is anti-platelet agent such as aspirin 81 mg daily, statin, which she is already taking, and blood pressure control but at the same time avoiding hypotension. 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
--- NOTE | 2023-12-03 11:53 | PHA.MEDREC ---
Addendum entered by Radha Arevalo cathryn 12/03/23 11:55: Last dose of medications was yesterday morning. Original Note: Pharmacy Consult ? Medication Reconciliation Pharmacy has completed the medication reconciliation. Spoke to patient's daughter Katie at bedside to confirm medication list. Daughter said patient takes lorazepam 0.5 mg daily @1700 on schedule. Her dose of atorvastatin was recently increased to 80 mg and she no longer take meloxicam nor losartan.
[2023-12-03 12:00] VITALS: BP 140/80; PULSE 73; RESP 18; TEMP 36.7; O2SAT 100
--- NOTE | 2023-12-03 12:37 | P.DS_ITS ---
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 This is a 87-year-old female with pertinent history of CVA, hypothyroidism, seizure disorder, gastroesophageal reflux disease, hypertension who was brought to the emergency department for concerns of aphasia and facial droop. History was obtained with the help of family at bedside. Of note, patient was recently admitted with acute CVA and discharged on 09/30. Last known normal was on the morning of day of presentation. Patient in the evening was found to be word-finding difficulty and inability to have a conversation. Also the daughter noted facial droop. EMS was called who did notice expressive aphasia and facial droop. Unable to obtain review of systems. In the emergency department, CT head and CTA head and neck obtained. Patient presented with expressive aphasia and facial droop concerning for acute CVA. Patient however has had these symptoms ongoing. She did have CT scan and MRI which were both negative for any acute infarction patient has been on aspirin and high-dose statin. She was seen evaluated by Neurology who believes her symptoms are secondary to spasmodic dysphonia and she should follow-up with an jewel bearing turner for treatment of this. Her history of dementia may also be contributing to this as well. At this time patient is hemodynamically stable with stable vital signs and plan will be for patient to be discharged home. Hypokalemia Repleted with oral potassium Hypothyroidism. Continues levothyroxine Seizure disorder. No seizures during hospitalization. Continue Keppra 1000 mg b.i.d. Hypertension. Continue home medications GERD. Continue PPI Time Attestation Discharge Coordination Time (in mins): 35 Quality: Safe Use of Opioids Does Pt have an Active Cancer Diagnosis on the Problem List?: No Quality: Stroke Does the patient have a stroke diagnosis?: No Physical Exam Vital Signs: Vital Signs: Last Vital Signs Temp 98.0 F 12/03/23 12:00 Pulse 73 12/03/23 12:00 Resp 18 12/03/23 12:00 BP 140/80 H 12/03/23 12:00 Pulse Ox 100 12/03/23 12:00 O2 Del Method Room Air 12/03/23 12:00 BMI result Body Mass Index 27.9 Appearing in no acute distress head is normocephalic atraumatic eyes pupils are PERRLA sclera is anicteric mouth throat mucous membranes are intact and moist neck is supple no lymphadenopathy, no JVD noted lung sounds are clear to auscultation heart regular rate rhythm, clear S1, S2 positive bowel sounds, abdomen is soft, nontender neuro patient is alert, hx of dementia DS: Data Data Completed and Pending Labs on day of discharge: Laboratory Results - last 24 hr 12/02/23 12/02/23 12/02/23 08:06 17:18 18:06 WBC 5.1 RBC 4.21 Hgb 13.4 Hct 37.6 MCV 89.3 MCH 31.8 MCHC 35.6 H RDW 12.6 Plt Count 124 L D MPV 10.6 Immature Gran % (Auto) 0.4 Neut % (Auto) 71.8 Lymph % (Auto) 15.6 L [place] % (Auto) 9.3 Eos % (Auto) 2.1 Baso % (Auto) 0.8 Lymph # (Auto) 0.8 L [place] # (Auto) 0.5 Eos # (Auto) 0.1 Baso # (Auto) 0.0 Abs Immat Gran (auto) 0.02 Absolute Neuts (auto) 3.7 Absolute Nucleated RBC 0.000 Nucleated RBC % (auto) 0.0 Smear Tech's Comments VERIFIED Hold Purple Top SEE NOTE SEE NOTE SEE NOTE PT 11.2 INR 0.9 APTT 30.3 Sodium 132 L Potassium 3.4 Chloride 99 Carbon Dioxide 21 L Anion Gap 15 BUN 11 Creatinine 0.74 Estim Creat Clear Calc 45.8 Estimated GFR > 60 POC Glucose Random Glucose 109 Estimat Average Glucose Hemoglobin A1c % Calcium 9.4 Total Bilirubin 0.6 Direct Bilirubin 0.3 AST 19 ALT 47 H Alkaline Phosphatase 184 H Troponin I High Sens 12.2 Total Protein 7.2 Albumin 4.3 Triglycerides 186 H Cholesterol 122 LDL Cholesterol, Calc 38 HDL Cholesterol 47 Urine Color Urine Appearance Urine pH Ur Specific [place] Urine Protein Urine Glucose (UA) Urine Ketones Urine Blood Urine Nitrite Ur Leukocyte Esterase Urine RBC Urine WBC Ur Squamous Epith Cells Urine Bacteria Hyaline Casts 12/02/23 12/02/23 12/03/23 18:08 18:41 05:33 WBC 8.0 RBC 4.64 Hgb 14.3 Hct 41.7 MCV 89.9 MCH 30.8 MCHC 34.3 RDW 12.7 Plt Count 180 D MPV 10.8 Immature Gran % (Auto) 0.4 Neut % (Auto) 81.7 H Lymph % (Auto) 7.8 L [place] % (Auto) 8.6 Eos % (Auto) 0.9 Baso % (Auto) 0.6 Lymph # (Auto) 0.6 L [place] # (Auto) 0.7 Eos # (Auto) 0.1 Baso # (Auto) 0.1 Abs Immat Gran (auto) 0.03 Absolute Neuts (auto) 6.6 Absolute Nucleated RBC 0.000 Nucleated RBC % (auto) 0.0 Smear Tech's Comments Hold Purple Top PT INR APTT Sodium 134 L Potassium 3.1 L Chloride 101 Carbon Dioxide 23 Anion Gap 13 BUN 8 L Creatinine 0.76 Estim Creat Clear Calc 44.6 Estimated GFR > 60 POC Glucose 111 Random Glucose 88 Estimat Average Glucose 100 Hemoglobin A1c % 5.1 Calcium 9.5 Total Bilirubin Direct Bilirubin AST ALT Alkaline Phosphatase Troponin I High Sens Total Protein Albumin Triglycerides Cholesterol LDL Cholesterol, Calc HDL Cholesterol Urine Color Dark Yellow Urine Appearance Clear Urine pH 7.5 Ur Specific [place] 1.025 Urine Protein Negative Urine Glucose (UA) Negative Urine Ketones Negative Urine Blood Negative Urine Nitrite Positive H Ur Leukocyte Esterase Moderate (2+) H Urine RBC 0-2 Urine WBC 0-5 Ur Squamous Epith Cells 0-2 Urine Bacteria None Seen Hyaline Casts 0-2 Preliminary micro results at discharge 12/02/23 18:41 Urine Culture - Preliminary Urine clean catch - Clean Catch Midstream Culture too young to evaluate. Discharge Plan Discharge Anticipated Discharge Date/Time: 12/03/23 12:34 Patient Disposition: Home, Self-Care Discharge Diagnosis: Spasmodic dysphonia Referrals: Po,Marie Renner MD [Primary Care Provider] - 1 Week Discharge Medications: Continued Myrbetriq 25 mg tablet extended release 24 hr 25 mg PO DAILY Qty: 90 2RF omeprazole 20 mg capsule,delayed release(DR/EC) 20 mg PO BID Qty: 180 2RF magnesium oxide 400 mg magnesium capsule 400 mg PO DAILY Qty: 90 1RF (DME) low height rollator See Rx Instructions .Route .MEDSUPPLY Qty: 1 0RF Rx Instructions: As directed levothyroxine 88 mcg tablet 88 mcg PO DAILY@0600 90 Days Qty: 90 1RF levetiracetam 1,000 mg tablet 1,000 mg PO BID Qty: 180 0RF loratadine 10 mg tablet 10 mg PO DAILY Qty: 30 5RF aspirin 81 mg Tablet,Delayed Release (Dr/Ec) 81 mg PO DAILY Qty: 30 0RF acetaminophen 500 mg Tablet 1,000 mg PO DAILY PRN (Reason: Pain) atorvastatin 80 mg tablet 80 mg PO DAILY lorazepam 1 mg tablet 0.5 mg PO DAILY@1700 metoprolol succinate 25 mg tablet extended release 24 hr 25 mg PO DAILY Qty: 30 3RF Discharge Orders: Discharge Order (Routine); Ordered 12/03/23 Ordered By: Brianna Wheatley Diet: Advance to usual diet Activity on Discharge: As tolerated Stand Alone Forms: Patient Portal Discharge page Print Language: Hebrew Care Plan Goals: Follow-up with ear nose and throat provider for further treatment of spasmodic dysphonia Health Concerns: Spasmodic dysphonia Plan of Treatment: Follow-up with primary care provider as needed Take all medications as prescribed Assessment: See discharge summary
[2023-12-03] MEDS: Potassium Chloride ER 20 MEQ TAB.ER.PRT 40 MEQ PO (13:35)
--- NOTE | 2023-12-03 13:37 | MHC.CM.PN ---
IMM 12/02. Pt lives at home with her daughter. Pt was recently discharged form [facility] services this past Sunday. Pt uses a walker and a cane. Pts son to transport her home. HCP on file and verified. PCP: Dr. Salazar Po
--- NOTE | 2023-12-03 13:38 | MHC.SL.SWA ---
Speech Pathologist Impression: Risk of Aspiration Due to: Dysphasia Diet Status: Liquid Consistency and Strategies for Safe Swallow: Liquid Intake Recommendation: Thin Liquid Intake Strategies: Small Sips Solid Food Consistency: Dietary Recommendations: Chopped/Advanced (NDD3) Additional Modifications to Solid Foods: Patient will need supervision initially at meals to assure that she is oriented to meal, all items are open and readily available, and that she is able to progress with meal without spilling or dropping items. Oral Medication Intake: Whole with Liquid Please contact the pharmacy regarding appropriate crushable or liquid drug formulations that are available whenever modified delivery is recommended. Compensatory Strategies and Precautions to be Taken for Safe Swallow: Sitting Upright (90 deg) Liquids from Cup Small Bites and Sips Alternate Liquids/Solids Rate of Ingestion Change Supervision While Eating and Drinking for Safe Swallow: Total Supervision (1:1) Foods to Avoid: Difficult to chew solids. Swallowing Recommended Treatments: Compens. Strategy Educat. Recommendation for Speech: Inpatient Speech Therapy Comment: Patient presents with swallow mostly wfl, however is quite confused and has scattered dentition. Patient not presenting with facial droop this a.m., however is struggling to communicate (word finding) and needs context and repetition to understand direction and the communication of others. Recommend START diet of Chopped Advanced (NDD3) with THIN liquids, pills whole with liquid. Recommend assessment of Speech/Language/Cognitive skills. Patient will need full supervision at meals to start to assure she is accessing and progressing with meal without difficulty/confusion. [facility] notified of recommendation by secure text, RN in person. [employer] [employer] to follow. Frequency/Duration: Date Range for Service Req: Timeline to reassess: Snow Shoveler Clinican/Clinical Fellow: No Supervisory Statement: I have reviewed and agree with the student/clinical fellow's documentation: N/A Speech Language Pathologist: Rafaela Todd M.A., [facility] [employer]
--- NOTE | 2023-12-03 13:40 | MHC.CM.PN ---
Pt is medically cleared for discharge home self-care with family support, pts son to transport her home.
== END 2023-12-03 14:41 | disposition home or self-care (01) | DRG 156 ==
LOC: HO.ED 19:59 → HO.EDOVER 20:37 → HO.IMC 12-03 00:06
PROVIDERS: Admitting Provider Student in an Organized Health Care Education/Training Program; Emergency Provider Emergency Medicine Emergency Medical Services; PCP Internal Medicine; Visit Provider Nurse Practitioner Acute Care
DX: R49.0 Dysphonia (principal); I67.2 Cerebral atherosclerosis; I10 Essential (primary) hypertension; K21.9 Gastro-esophageal reflux disease without esophagitis; E87.6 Hypokalemia; F03.90 Unspecified dementia, unspecified severity, without behavioral disturbance, psychotic disturbance, mood disturbance, and anxiety; E03.9 Hypothyroidism, unspecified; G40.909 Epilepsy, unspecified, not intractable, without status epilepticus; Z86.73 Personal history of transient ischemic attack (TIA), and cerebral infarction without residual deficits; Z79.82 Long term (current) use of aspirin; Z79.890 Hormone replacement therapy; Z79.899 Other long term (current) drug therapy
CPT/HCPCS: 36415; 70450; 70496; 70498; 70551; 80048; 80061; 80076; 81001; 82947; 83036; 84484; 85025; 85610; 85730; 87086; 92610; 93005; 93306; 97162; 97166; 99285; J1650; J1953; Q9967

== ENCOUNTER → 2023-12-02 18:32 | Outpatient (BNV) | payer MEDICARE, SELFPAY | PROVIDERS: Emergency Provider Emergency Medicine Emergency Medical Services; PCP Internal Medicine; Visit Provider Student in an Organized Health Care Education/Training Program | DX: J38.3 Other diseases of vocal cords (principal); F03.90 Unspecified dementia, unspecified severity, without behavioral disturbance, psychotic disturbance, mood disturbance, and anxiety; I67.89 Other cerebrovascular disease; G31.9 Degenerative disease of nervous system, unspecified | CPT/HCPCS: 99223; 99239 ==

== ENCOUNTER 2023-12-02 20:16 | Outpatient (BNV) | payer MEDICARE, SELFPAY | END 2023-12-03 07:00 | PROVIDERS: Admitting Provider Student in an Organized Health Care Education/Training Program; Emergency Provider Emergency Medicine Emergency Medical Services; PCP Internal Medicine; Visit Provider Internal Medicine Cardiovascular Disease | DX: I36.1 Nonrheumatic tricuspid (valve) insufficiency (principal); I34.81 Nonrheumatic mitral (valve) annulus calcification | CPT/HCPCS: 93306 ==

== ENCOUNTER → 2023-12-02 20:16 | Outpatient (BNV) | payer MEDICARE, SELFPAY | PROVIDERS: Admitting Provider Student in an Organized Health Care Education/Training Program; Emergency Provider Emergency Medicine Emergency Medical Services; PCP Internal Medicine; Visit Provider Psychiatry & Neurology Neurology | DX: F03.90 Unspecified dementia, unspecified severity, without behavioral disturbance, psychotic disturbance, mood disturbance, and anxiety (principal); G31.9 Degenerative disease of nervous system, unspecified; I66.9 Occlusion and stenosis of unspecified cerebral artery; J38.3 Other diseases of vocal cords | CPT/HCPCS: 99222 ==

== ENCOUNTER 2023-12-05 15:55 | Outpatient (AMB) | payer MEDICARE, SELFPAY ==
--- NOTE | 2023-12-05 15:56 | MHC.PC.OV ---
Vital Signs 12/05/23 15:58 Height 5 ft Weight 134 lb 7.712 oz BMI 26.3 BP 138/82 Blood Pressure Location Lt brachial Position Sitting Pulse 70 Pulse Source Pulse Oximeter Oxygen Delivery Method Room Air Intake Visit Reasons: TCM APHASIA Information Security Analyst Required: No Allergies hydrochlorothiazide Allergy (Unknown, Verified 12/05/23 15:57) Electrolyte abnormality oxycodone [OXYCODONE] Allergy (Unknown, Verified 12/05/23 15:57) VOMITTING,CONFUSION amlodipine Adverse Reaction (Intermediate, Verified 12/05/23 15:57) leg swelling lisinopril Adverse Reaction (Intermediate, Verified 12/05/23 15:57) cough losartan Adverse Reaction (Intermediate, Verified 12/05/23 15:57) hyponatremia Tobacco use date assessed: 07/02/23 Fall risk assessment: No Falls in past year Last assessed Fall Risk: 12/05/23 Dental Screening Dental Screen Date: 09/26/23 HPI TCM APHASIA HPI Details 87-year-old overweight female with history of hypertension GERD hypothyroidism hypercholesterolemia generalized anxiety disorder and cognitive impairment last seen in November 2023 coming in for hospital follow up. In review of the notes, patient was seen in [facility] 12/02/2023 [address] aphasia [address] facial droop. [address] of the head and CTA of head and neck were obtained in the ER which were both negative and MRI was also negative for acute infarction. 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 Patient was discharged home 12/03/2023. Patient was seen yesterday by ear nose and throat who did a complete exam and did not find any evidence of spasmodic dysphonia. Deferred back to Neurology. Her son also mentioned she has an abrasion on her right hand and she is unsure how she got this but has been using Band-Aids and bleeding is well controlled. [facility] TCM Information Date of Discharge 12/02/23 Discharged From [facility] Medical History (Updated 12/05/23 @ 16:49 by Archana Corado PA-C) Cerebral infarction Left leg DVT Upper respiratory infection COVID-19 virus infection Burning with urination Buttock pain Status post fall Dog bite of right arm Adult general medical exam Screening for diabetes mellitus Impacted cerumen of both ears Facial lesion Overweight (BMI 25.0-29.9) Hip osteoarthritis T12 vertebral fracture Reactive airways dysfunction syndrome Pneumonia Cholelithiasis CVA (cerebral vascular accident) Obesity (BMI 30-39.9) Hypercholesterolemia Vitamin D deficiency Hypothyroid Seizure disorder Anxiety Gout GERD (gastroesophageal reflux disease) Psoriatic arthritis Hypertension Surgical History History of Mohs surgery for squamous cell carcinoma of skin History of cataract surgery History of colonoscopy History of knee replacement procedure of right knee History of left knee replacement Family History Father No problems noted. Mother Acute CVA (cerebrovascular accident) Diabetes Brother Cancer Daughter History of nephrectomy Son Heart disease Social History Household Members: Family Household Members Other:: Daughter (Katie) and son-in-law Housing: House Alcohol intake: never Patient Tobacco Use Status: Never used Tobacco e-Cigarette/Vaping Use: Never Used Second Hand Smoke Exposure: No service: No Current occupational status: retired Cognitive needs: No Hearing needs: Yes (hearing aides) Vision needs: No Questionnaire Thrive Questionnaire Date Thrive assessed: 12/03/23 AUDIT C Alcohol Use Questionnaire (AUDIT-C) 1. How often do you have a drink containing alcohol?: Never 3. How often do you have six or more drinks on one occasion?: Never Total Score: 0 Score Reviewed/Action Taken: No HAZEL-7 AMB Questionnaire HAZEL-7 Date HAZEL - 7 assessed: 12/05/23 Source: Developed by Drs. Satish Summers, Radha Honeycutt, Tani Gonzales and colleagues, with an educational milton from [employer]. Review of Systems Const Denies body aches, Denies chills, Denies fever(s) and Denies poor appetite Eyes Reports no additional complaints ENT Reports Normal hearing present Card Denies chest pain, Denies syncope and Denies dyspnea Resp Denies cough and Denies dyspnea GI Reports no additional complaints Reports no additional complaints Musc Reports no additional complaints Skin/Breast Details: Small abrasion on right hand Neuro Reports Normal hearing present, Denies Abnormal speech present, Denies confusion, Denies syncope and Denies tremor(s) Psych Reports no additional complaints and Denies confusion Physical exam (Primary Care) Vital Signs: Last Vital Signs Pulse 70 12/05/23 15:58 BP 138/82 12/05/23 15:58 Oxygen Delivery Method Room Air 12/05/23 15:58 BMI result Body Mass Index 26.3 Tobacco/Smoking Status: Tobacco use Status Tobacco use date assessed 07/02/23 12/05/23 15:57 Patient Tobacco Use Status Never used Tobacco 12/05/23 15:57 e-Cigarette/Vaping Use Never Used 12/05/23 15:57 Thrive Assessment: Date of Thrive Assessment Date Thrive assessed 12/03/23 12/05/23 15:57 Const General: No confusion Orientation/consciousness: No confusion HENMT Head: Yes normocephalic Ears: hearing grossly normal bilaterally General nose exam: Normal external nose present Eyes General: appearance normal, both eyes and all related structures Conjunctivae: conjunctivae normal Neck Neck: Yes full ROM and Yes no lymphadenopathy Resp Effort & Inspection: normal respiratory effort Auscultation: clear to auscultation bilaterally, no crackles, no rales, no rhonchi and no wheezes Cardio Rate: regular rate Rhythm: regular rhythm Skin Other: 2 cm abrasion on the right hand that is not actively bleeding without overlying erythema or warmth Neuro General: No confusion Cranial nerves: Yes Normal hearing present Speech: No Abnormal speech present Gait exam (Neuro): Normal gait present Extrem General: Yes normal to inspection, Yes full ROM and No edema Psych Affect: normal affect Attitude: cooperative Insight: Good insight present (Psych) Judgement: Good judgement present (Psych) Assessment and Plan Assessment & Plan (1) Expressive aphasia: Code(s): R47.01 - Aphasia Plan: Spasmodic dysphonia ruled out with ENT and deferred back to Neurology. We will continue to monitor for symptoms and presented to the ER if symptoms do arise. (2) CVA (cerebral vascular accident): Comment: TIA October 2018, echo October 2018 normal LV systolic function impaired relaxation EEG normal October 2018, 10/2023 Code(s): I63.9 - Cerebral infarction, unspecified Plan: Continue with blood pressure, cholesterol, and blood sugar management. Continue to follow with Neurology. (3) Abrasion: Code(s): T14.8XXA - Other injury of unspecified body region, initial encounter Plan: Patient had a 2 cm abrasion on right hand which was cleaned with iodine in the office and dressed with 2 Steri-Strips. Wound is likely to heal on its own however being on blood thinner may have better healing time with Steri-Strips. Advised patient and patient's son to watch for signs of infection. Plan This note was constructed using voice recognition software. While every effort has been made to ensure accuracy and fruit trimmer, still areas may have been included sometimes these areas may affect the content or meeting of the given symptoms. Total time spent caring for the patient today was 25 minutes. This includes time spent before the visit reviewing the chart, time spent during the visit, and time spent after the visit and documentation. Coding Level of Care Code TCM Mod MDM <= 7 Days Diagnoses Expressive aphasia R47.01 CVA (cerebral vascular accident) I63.9 Abrasion T14.8XXA
[2023-12-05 15:58] VITALS: BP 138/82; PULSE 70; BMI 26.3
== END 2023-12-05 16:48 | disposition home or self-care (01) ==
PROVIDERS: PCP Internal Medicine
DX: R47.01 Aphasia (principal); T14.8XXA Other injury of unspecified body region, initial encounter; Z86.73 Personal history of transient ischemic attack (TIA), and cerebral infarction without residual deficits
CPT/HCPCS: 99495

== ENCOUNTER 2023-12-08 18:36 | Observation (INO) | payer MEDICARE, SELFPAY ==
--- NOTE | ~2023-12-08 | CT_ITS ---
EXAMINATION: CT HEAD WITHOUT CONTRAST CLINICAL INFORMATION: Garbled speech. COMPARISON: Brain MRI from 12/03/2023. CTA Head and Neck from 12/02/2023. TECHNIQUE: Contiguous axial imaging was performed from the skull base to vertex without intravenous administration of contrast. This CT examination was performed using dose optimization techniques as appropriate, variously including the following: *Automated exposure control. *Adjustment of mA and/or kV according to patient size (this includes techniques or standardized protocols for targeted exams where dose is matched to indication/reason for exam; i.e. extremities or head). *Use of iterative reconstruction technique. DLP: 1232 mGy-cm FINDINGS: Moderately motion degraded exam. There is no evidence of acute intracranial hemorrhage or edematous territorial infarction. Small lacunar infarcts of the bilateral caudate nuclei and left lentiform nucleus. No additional loss of parks-white matter differentiation. Scattered and partially confluent hypoattenuation in the periventricular and deep white matter are consistent with moderate to extensive microangiopathy. Proportional prominence of the ventricles and sulcal spaces without evidence of obstructive hydrocephalus. No abnormal mass effect or midline shift. No extra-axial fluid collections. Calcific atherosclerotic disease of the intracranial internal carotid and vertebral arteries. No hyperdense vessel sign. No acute soft tissue or osseous abnormalities. Mild mucosal thickening of the paranasal sinuses. The mastoid air cells and middle ear cavities are clear. Bilateral lens extractions. CT/CT head for stroke IMPRESSION: 1. No evidence of acute intracranial hemorrhage or edematous territorial infarction. 2. Moderate to extensive underlying microangiopathy and generalized cerebral volume loss. Small lacunar infarcts of the deep nuclei. Electronically signed by: Ralph Zamorano DO 12/08/2023 07:03 PM EDT
--- NOTE | ~2023-12-08 | CT_ITS ---
EXAMINATION: CT ANGIOGRAM HEAD CT ANGIOGRAM NECK CLINICAL INFORMATION: garbled speech COMPARISON: Same day head CT, MRI brain December 03, 2023, and CTA December 02, 2023 TECHNIQUE: Test bolus sequences followed by intravenous administration 70 mL of Omnipaque 350. Helical imaging was performed in the axial plane from the aortic arch to the skull vertex. Delayed postcontrast imaging of the head was also performed. The data was processed at the certified ophthalmic technologist's workstation for generation of MIP sequences. Angled MIPs and volume rendered reformatted images were also generated at an offline 3D workstation. Stenoses are assessed in accordance with Yvonne et al. Quantification of Carotid Stenosis on CT Angiography. AJR 2006. 27(1):13-19. [address] CT examination was performed using dose optimization techniques as appropriate, variously including the following: *Automated exposure control *Adjustment of mA and/or kV according to patient size (this includes techniques or standardized protocols for targeted exams where dose is matched to indication/reason for exam; i.e. extremities or head) *Use of iterative reconstruction technique DLP: 1360 mGy-cm FINDINGS: CT HEAD: Noncontrast head CT findings are discussed on a separate same-day head CT with similar appearance of extensive chronic microangiopathy and mild global cerebral volume loss. No territorial loss of parks-white differentiation. No pathologic intra-axial enhancement or regional oligemia. Lens extractions. Paranasal sinuses and mastoid air cells are well aerated. Osseous structures are intact. CTA HEAD: No evidence of progressive steno-occlusive disease of the intracranial vasculature. Redemonstrated atherosclerotic plaque moderately narrowing the intradural left vertebral artery. Stable segmental severe stenoses along the bilateral RACK LOADER complexes, including near occlusive stenosis of the proximal left P2 segment. Patchy calcific plaque of the intracranial internal carotid arteries contributes to stable moderate supraclinoid ICA stenosis. Stable severe stenosis of the more distal left paraclinoid ICA. 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 Stable moderate to high grade stenoses of the right M1 MCA and left MCA bifurcation and moderate stenoses of the proximal M2 MCA branches. No aneurysms and no high flow vascular malformations. Timing of the contrast bolus allows assessment of the major dural venous sinuses, which all opacify normally CTA NECK: Classic 3 vessel branching pattern of the aortic arch. Mild calcific atherosclerosis of the aortic arch and left proximal subclavian artery. Origins of the great vessels are widely patent. The common carotid arteries are widely patent. Calcific atherosclerosis of the left greater than right carotid bifurcations without stenosis. Widely patent internal carotid arteries within limitations of motion artifact particularly compromising diagnostic assessment of the right ICA. Retropharyngeal course of the left greater than right common carotid and proximal left internal carotid arteries. The right vertebral artery is dominant. The vertebral artery ostia are widely patent. Both vertebral arteries are grossly patent throughout their extracranial cervical course, noting motion artifact limits assessment of the distal V2 and V3 segments. CT NECK: Dimintive thyroid gland. Partially imaged patulous partially fluid-filled esophagus with air-fluid level. The visualized lung apices and upper mediastinum are within normal limits. Reversal of the normal cervical lordosis and advanced spondylitic changes. CT/CT angio head neck stroke IMPRESSION: 1. No evidence of progressive steno-occlusive disease of the intracranial vasculature. Stable moderate to severe atherosclerotic disease throughout the anterior and posterior circulation as above. 2. No significant steno-occlusive disease in the neck. 3. Partially imaged patulous partially fluid-filled esophagus with air-fluid level. No proximal large vessel occlusion and extensive atherosclerotic disease communicated to at 7:03pm on 12/08/[address] Zamorano and it was ascertained that the content and urgency of the report was understood at the time of direct communication. Electronically signed by: Kayla Charles MD 12/08/2023 07:36 PM EDT
--- NOTE | 2023-12-08 18:49 | ECG_ITS ---
Test Reason : WEAKNESS Blood Pressure : / mmHG Vent. Rate : 080 BPM Atrial Rate : 080 BPM P-R Int : 202 ms QRS Dur : 082 ms QT Int : 388 ms P-R-T Axes : -27 -29 038 degrees QTc Int : 447 ms Normal sinus rhythm Minimal voltage criteria for LVH, may be normal variant ( R in aVL ) Borderline ECG When compared with ECG of 02-DEC-2023 18:15, Nonspecific T wave abnormality no longer evident in Anterior leads Referred By: Kwesi Cordero Electronically Signed By:TOLU CUNNINGHAM
[2023-12-08] MEDS: iohexoL 350 MG/ML 100 ML INFUS..BTL IV (18:56)
[2023-12-08 18:59] VITALS: BMI 26.9
[2023-12-08 19:24] VITALS: BP 175/84; PULSE 78; RESP 18; TEMP 36.4; O2SAT 100
--- NOTE | 2023-12-08 19:29 | ED_ITS ---
HPI - Neuro Symptoms/Deficit General Chief Complaint: Stroke Stated Complaint: ? stroke symptoms Time Seen by Provider: 12/08/23 18:46 Source: patient, family, RN notes reviewed and old records reviewed Mode of arrival: ambulatory Limitations: no limitations History of Present Illness ED Provider: Consuelo HPI Narrative: 87-year-old female with past medical history significant for dementia, spasmodic dysphonia, expressive aphasia, previous CVA, hyperlipidemia, hypertension, GERD, anxiety, seizure disorder presents for evaluation of altered mental status. Per the patient's daughter, the patient seemed to be at her usual baseline at 3:30 p.m. today. The patient's son got to her house at 4:30 a.m. and found the patient to be ?speaking incoherently and garbled. ? They report that this is the same presentation the patient had on December 01 when she was admitted. She had imaging that included a CT brain, CT angiography of the head and brain, an MRI of the brain which all showed extensive white matter changes but no obvious CVA or large vessel occlusion. She was seen by Neurology, Dr. Sawant Currently, the patient is able to follow commands. She answers some questions appropriately and other answers are incoherent She has no obvious facial droop or focal weakness noted Related Data Home Medications ?Medication ?Instructions ?Recorded ?Confirmed acetaminophen 500 mg tablet 1,000 mg PO DAILY PRN Pain 12/03/23 12/04/23 atorvastatin 80 mg tablet 80 mg PO DAILY 12/03/23 12/04/23 lorazepam 1 mg tablet 0.5 mg PO DAILY@1700 anxiety 12/03/23 12/04/23 Previous Rx's ?Medication ?Instructions ?Recorded mirabegron 25 mg tablet,extended 25 mg PO DAILY #90 tabs 03/30/23 release 24 hr (Myrbetriq) omeprazole 20 mg capsule,delayed 20 mg PO BID #180 caps 08/29/23 release metoprolol succinate 25 mg 25 mg PO DAILY #30 tabs 09/26/23 tablet,extended release 24 hr aspirin 81 mg tablet,delayed 81 mg PO DAILY #30 tabs 10/01/23 release magnesium oxide 400 mg PO DAILY #90 caps 10/21/23 low height rollator #1 ea 10/26/23 levetiracetam 1,000 mg tablet 1,000 mg PO BID #180 tabs 10/28/23 levothyroxine 88 mcg tablet 88 mcg PO DAILY@0600 90 days #90 10/28/23 tabs loratadine 10 mg tablet 10 mg PO DAILY #30 tabs 11/26/23 Allergies Allergy/AdvReac Type Severity Reaction Status Date / Time hydrochlorothiazide Allergy Unknown Electrolyte Verified 12/08/23 19:01 abnormality oxycodone [OXYCODONE] Allergy Unknown VOMITTING,C Verified 12/08/23 19:01 ONFUSION amlodipine AdvReac Intermediate leg Verified 12/08/23 19:01 swelling lisinopril AdvReac Intermediate cough Verified 12/08/23 19:01 losartan AdvReac Intermediate hyponatremi Verified 12/08/23 19:01 a Review of Systems 2 Constitutional: Constitutional: Denies body ache(s), Denies chills, Denies headache(s) and Denies weakness Eyes: Eyes: Denies blurry vision ENT: Denies headache(s) Cardiovascular: Cardiovascular: Denies chest pain and Denies dyspnea Respiratory: Respiratory: Denies cough and Denies dyspnea Gastrointestinal: Gastrointestinal: Denies abdominal pain Integumentary/Breasts: Skin/Breast: Denies rash Neurologic: Reports Abnormal speech present, Denies headache(s) and Denies weakness PMFSH Past Medical History Medical History (Updated 12/08/23 @ 19:44 by Kwesi Cordero) Cerebral infarction Left leg DVT Upper respiratory infection COVID-19 virus infection Burning with urination Buttock pain Status post fall Dog bite of right arm Adult general medical exam Screening for diabetes mellitus Impacted cerumen of both ears Facial lesion Overweight (BMI 25.0-29.9) Hip osteoarthritis T12 vertebral fracture Reactive airways dysfunction syndrome Pneumonia Cholelithiasis CVA (cerebral vascular accident) Obesity (BMI 30-39.9) Hypercholesterolemia Vitamin D deficiency Hypothyroid Seizure disorder Anxiety Gout GERD (gastroesophageal reflux disease) Psoriatic arthritis Hypertension Surgical History History of Mohs surgery for squamous cell carcinoma of skin History of cataract surgery History of colonoscopy History of knee replacement procedure of right knee History of left knee replacement Family History Family History Father No problems noted. Mother Acute CVA (cerebrovascular accident) Diabetes Brother Cancer Daughter History of nephrectomy Son Heart disease Social History Social History Household Members: Family Household Members Other:: Daughter (Katie) and son-in-law Housing: House Alcohol intake: never Patient Tobacco Use Status: Never used Tobacco Smoked in Last 30 Days: No e-Cigarette/Vaping Use: Never Used Second Hand Smoke Exposure: No Use of substances other than those prescribed or required for medical reasons: No Advance Directives: Yes Advance Directives on File: Yes Advance Directives Date on File: 12/04/23 Do you have a plan to hurt others: No Plan service: No Current occupational status: retired Cognitive needs: No Hearing needs: Yes (hearing aides) Vision needs: No Physical Exam 2 Vital Signs: Vital Signs: Last Vital Signs Temp 97.5 F 12/08/23 19:24 Pulse 74 12/08/23 20:00 Resp 18 12/08/23 20:00 BP 168/88 H 12/08/23 20:00 Pulse Ox 99 12/08/23 20:00 O2 Del Method Room Air 12/08/23 20:00 BMI result Body Mass Index 26.9 Const: General: healthy appearing, comfortable, no acute distress, alert and awake Nutritional Appearance: well nourished HEENT: Head: Yes normocephalic and Yes atraumatic Eyes: Eyelids: Yes eyelids normal Conjunctivae: conjunctivae normal S clerae: sclerae normal Corneas: corneas normal Pupils: Equal, round and reactive pupils present EOM: EOMs intact bilaterally Neck: Neck: Yes full ROM Resp: Effort & Inspection: normal respiratory effort, able to speak in complete sentences and not labored Skin: General skin exam: elasticity normal Neuro: Other: Patient appears to be experiencing expressive aphasia. She does follow my commands during neuro exam. It does appear that time she is attempting to speak and either words do not come out, or the speech is incoherent Cranial nerves: Yes CN's II-XII intact bilaterally, Yes Equal, round and reactive pupils present and Yes Bilaterally intact EOM present Speech: A bnormal speech present Course Reevaluation(s) Reevaluation #1: Discussed with Neurology, Dr. Sawant. No TNK is recommended, the patient is already on a statin and antiplatelet. He would like the patient admitted to be seen by him tomorrow Time: 19:43 Medications Administered Discontinued Medications Generic Name Dose Route Start Last Admin Trade Name Savage PRN Reason Stop Dose Admin Iohexol 100 ml 12/08/23 18:56 12/08/23 18:56 Iohexol 350 Mg/Ml 100 Ml Infus..Btl IV 12/08/23 18:57 70 ml ONCE ONE Administration Medical Decision Making Medical Decision Making [facility] Narrative: I reviewed the patient's recent workup. Given that her last known well time was about 3-1/2 hours prior to presentation, a stroke order was obtained including CT angiography of the head, neck. I discussed with Neurology, Dr Sawant. He recommends admission so he may evaluate the patient tomorrow,. The patient's labs are significant for a hyponatremia of 129, this will be treated with IV fluids. Differential Diagnosis Differential Diagnoses: The differential diagnosis associated with the presentation includes TIA CVA Expressive aphasia Spasmodic dysphonia Admission/Observation Consideration of admission/observation: Escalation of care including admission/observation considered Consult Healthcare Provider Management of the patient was discussed with: Exterior Designer Neurology Lab Data [facility] Lab Attestation statement: I reviewed the patient's lab results. Hyponatremia of 129. 12/08/23 19:43 12/08/23 19:43 Labs: Lab Results 12/08/23 Range/Units 19:43 WBC 8.0 (4.8-10.8) X10*3/uL RBC 4.35 (4.20-5.50) X10*6/uL Hgb 13.6 (12.0-16.0) g/dl Hct 39.1 (37.0-47.0) % MCV 89.9 (80.0-98.0) fL MCH 31.3 (27.0-33.0) pg MCHC 34.8 (31.0-35.0) g/dl RDW 12.4 (11.0-16.0) % Plt Count 161 (160-400) X10*3/uL MPV 9.9 (9.4-12.3) fL Immature Gran % (Auto) 0.1 (0.0-0.4) % Neut % (Auto) 81.4 H (45-73) % Lymph % (Auto) 9.7 L (20-40) % [place] % (Auto) 7.0 (2-11) % Eos % (Auto) 1.2 (0-4) % Baso % (Auto) 0.6 (0-2) % Lymph # (Auto) 0.8 L (1.2-4.9) X10*3/uL [place] # (Auto) 0.6 (0.1-1.2) X10*3/uL Eos # (Auto) 0.1 (0.0-0.4) X10*3/uL Baso # (Auto) 0.1 (0.0-0.2) X10*3/uL Abs Immat Gran (auto) 0.01 (0.00-0.03) X10*3/uL Absolute Neuts (auto) 6.5 (2.0-8.3) x10*3/uL Absolute Nucleated RBC 0.000 (0.0-0.012) X10*3/uL Nucleated RBC % (auto) 0.0 (0.0-0.2) /100WBC PT 12.0 (11.1-13.3) SEC INR 1.0 (0.9-1.1) Sodium 129 L (135-145) mmol/L Potassium 3.8 D (3.3-5.1) mmol/L Chloride 99 (96-108) mmol/L Carbon Dioxide 19 L (22-29) mmol/L Anion Gap 15 (12-20) BUN 9 (9-16) mg/dL Creatinine 0.70 (0.5-1.4) mg/dL Estim Creat Clear Calc 47.5 Estimated GFR > 60 Random Glucose 99 (60-115) mg/dL Calcium 9.3 (8.4-10.2) mg/dL AST 17 (5-31) U/L ALT 20 (0-31) U/L Alkaline Phosphatase 110 (39-117) U/L Troponin I High Sens 4.7 D (<3.5-17.0) ng/L Total Protein 6.3 L (6.5-8.0) g/dL Albumin 3.7 (3.5-5.0) g/dL Lipase 37 (8-78) U/L Radiology Impression Discussion of test interpretation with radiology: I have reviewed the radiologist's reading. Radiologist Impression: CT/CT angio head neck stroke IMPRESSION: 1. No evidence of progressive steno-occlusive disease of the intracranial vasculature. Stable moderate to severe atherosclerotic disease throughout the anterior and posterior circulation as above. 2. No significant steno-occlusive disease in the neck. 3. Partially imaged patulous partially fluid-filled esophagus with air-fluid level. No proximal large vessel occlusion and extensive atherosclerotic disease communicated to at 7:03pm on 12/08/[address] Zamorano and it was ascertained that the content and urgency of the report was understood at the time of direct communication. NIH Stroke Scale Internal: Initial- Upon Arrival Level of Consciousness: Alert Level of Consciousness Questions: Answers both questions correctly Level of Consciousness Commands: Performs both tasks correctly Best Gaze: Normal Visual: No visual loss Facial Palsy: Normal Motor Arm (Right): No drift Motor Arm (Left): No drift Motor Leg (Right): No drift Motor Leg (Left): No drift Limb Ataxia: Absent Sensory: Normal Best Language: Severe aphasia Dysarthia: Mild to moderate dysarthria Extinction and Inattention: No abnormality Score: 3 Discharge Plan Discharge Clinical Impression: Combined receptive and expressive aphasia Patient Disposition: Admitted As Inpatient Print Language: Mongolian
[2023-12-08 19:47] LABS: MANUAL DIFF FLAG NO
[2023-12-08 19:52] LABS: Basophils Absolute Auto 0.1 X10*3/uL (0.0-0.2); Basophils Percent Auto 0.6 % (0-2); Eosinophils Absolute Auto 0.1 X10*3/uL (0.0-0.4); Eosinophils Percent Auto 1.2 % (0-4); Hematocrit 39.1 % (37.0-47.0); Hemoglobin 13.6 g/dl (12.0-16.0); Imm Gran Abs Auto 0.01 X10*3/uL (0.00-0.03); Imm Gran Pct Auto 0.1 % (0.0-0.4); Lymphocytes Absolute Auto 0.8 X10*3/uL (1.2-4.9); Lymphocytes Percent Auto 9.7 % (20-40); Mean Corpuscular HGB Conc 34.8 g/dl (31.0-35.0); Mean Corpuscular Hemoglobin 31.3 pg (27.0-33.0); Mean Corpuscular Volume 89.9 fL (80.0-98.0); Mean Platelet Volume 9.9 fL (9.4-12.3); Monocytes Absolute Auto 0.6 X10*3/uL (0.1-1.2); Neutrophils Absolute Auto 6.5 x10*3/uL (2.0-8.3); Neutrophils Percent Auto 81.4 % (45-73); Platelet Count 161 X10*3/uL (160-400); Red Blood Count 4.35 X10*6/uL (4.20-5.50); Red Cell Distribution Width 12.4 % (11.0-16.0)
[2023-12-08 20:00] VITALS: BP 168/88; PULSE 74; RESP 18; O2SAT 99
[2023-12-08 20:12] LABS: Alanine Aminotransferase 20 U/L (0-31); Albumin Level 3.7 g/dL (3.5-5.0); Alkaline Phosphatase 110 U/L (39-117); Aspartate Amino Transferase 17 U/L (5-31); Lipase 37 U/L (8-78); Total Protein 6.3 g/dL (6.5-8.0)
[2023-12-08 20:13] LABS: Anion Gap 15 (12-20); Blood Urea Nitrogen 9 mg/dL (9-16); Calcium 9.3 mg/dL (8.4-10.2); Carbon Dioxide 19 mmol/L (22-29); Chloride 99 mmol/L (96-108); Creatinine Clr Calc Pharmacy 47.5; Estimated Glomerular Filt Rate > 60; Glucose Random 99 mg/dL (60-115); Potassium 3.8 mmol/L (3.3-5.1); Sodium 129 mmol/L (135-145)
[2023-12-08 20:15] LABS: Troponin-I High Sensitivity 4.7 ng/L (<3.5-17.0)
[2023-12-08 20:28] LABS: Bilirubin Total 0.5 mg/dL (0.0-1.0)
[2023-12-08] MEDS: 0.9 % Sodium Chloride 1,000 ML 999 ML IV (20:47)
[2023-12-08] MEDS: Aspirin 81 MG TAB.CHEW 324 MG PO (20:48)
--- NOTE | 2023-12-08 21:29 | P.HPHOSP_ITS ---
History of Present Illness Date of Service: 12/08/23 Chief Complaint: expresive aphasia An 87-year-old woman with a past medical history significant for a TIA in 2018, hypothyroidism, migraine headaches, vitamin D deficiency, seizure disorder on Keppra, GERD, and essential hypertension was admitted in September for a CVA. She was readmitted on December 01 and discharged the next day due to transient expressive aphasia. 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 Dr. Hawthorne examined her with a scope and found no vocal cord abnormalities. She had been doing well until today when her symptoms returned, including an inability to talk, incoherent, and garbled speech, similar to the last episode according to her son and daughter. A CT of the head and CTA of the head and neck show no acute findings. Of note, an MRI on 12/02 also showed no acute abnormalities. According to the family, her symptoms are less prominent compared to the initial presentation. Review of Systems 2 Review of Systems: Gen: no fever Resp: no sob, no cough CV: no chest, no DRISCOLL, no leg edema GI: No n/v, no abd pain Neuro: No confusion, word finding difficulty, no weakness Yes all other systems are reviewed and are negative FORMERLY [facility] Medical History Cerebral infarction Left leg DVT Upper respiratory infection COVID-19 virus infection Burning with urination Buttock pain Status post fall Dog bite of right arm Adult general medical exam Screening for diabetes mellitus Impacted cerumen of both ears Facial lesion Overweight (BMI 25.0-29.9) Hip osteoarthritis T12 vertebral fracture Reactive airways dysfunction syndrome Pneumonia Cholelithiasis CVA (cerebral vascular accident) Obesity (BMI 30-39.9) Hypercholesterolemia Vitamin D deficiency Hypothyroid Seizure disorder Anxiety Gout GERD (gastroesophageal reflux disease) Psoriatic arthritis Hypertension Family History Father No problems noted. Mother Acute CVA (cerebrovascular accident) Diabetes Brother Cancer Daughter History of nephrectomy Son Heart disease Surgical History History of Mohs surgery for squamous cell carcinoma of skin History of cataract surgery History of colonoscopy History of knee replacement procedure of right knee History of left knee replacement Social History Household Members: Family Household Members Other:: Daughter (Katie) and son-in-law Housing: House Alcohol intake: never Patient Tobacco Use Status: Never used Tobacco Smoked in Last 30 Days: No e-Cigarette/Vaping Use: Never Used Second Hand Smoke Exposure: No Use of substances other than those prescribed or required for medical reasons: No Advance Directives: Yes Advance Directives on File: Yes Advance Directives Date on File: 12/04/23 Do you have a plan to hurt others: No Plan service: No Current occupational status: retired Cognitive needs: No Hearing needs: Yes (hearing aides) Vision needs: No Meds Allergies Allergy/AdvReac Type Severity Reaction Status Date / Time hydrochlorothiazide Allergy Unknown Electrolyte Verified 12/08/23 19:01 abnormality oxycodone [OXYCODONE] Allergy Unknown VOMITTING,C Verified 12/08/23 19:01 ONFUSION amlodipine AdvReac Intermediate leg Verified 12/08/23 19:01 swelling lisinopril AdvReac Intermediate cough Verified 12/08/23 19:01 losartan AdvReac Intermediate hyponatremi Verified 12/08/23 19:01 a Active Medications: Current Medications Sodium Chloride (Ns) 1,000 mls @ 999 mls/hr IV .Q1H1M MORENO Stop: 12/08/23 21:30 Last Admin: 12/08/23 20:47 Dose: 999 mls/hr Home Medications ?Medication ?Instructions ?Recorded ?Confirmed ?Last Taken ?Type acetaminophen 500 mg tablet 1,000 mg PO DAILY PRN Pain 12/03/23 12/04/23 Unknown History atorvastatin 80 mg tablet 80 mg PO DAILY 12/03/23 12/04/23 12/02/23 History lorazepam 1 mg tablet 0.5 mg PO DAILY@1700 anxiety 12/03/23 12/04/23 12/01/23 History Physical Exam 2 Vital Signs and Narrative: Vital Signs: Last Vital Signs Temp 97.5 F 12/08/23 19:24 Pulse 74 12/08/23 20:00 Resp 18 12/08/23 20:00 BP 168/88 H 12/08/23 20:00 Pulse Ox 99 12/08/23 20:00 O2 Del Method Room Air 12/08/23 20:00 BMI result Body Mass Index 26.9 Constitutional: Alert, in no distress, Mental Status: Oriented to person, place and time. Eyes: Pupils are equal, round and reactive to light. Ear, Nose and Throat: Oropharynx clear, mucous membranes moist. Ears and nose without deformities. Trachea midline. Respiratory: Clear to auscultation. No wheezing, rales or rhonchi. Cardiovascular: S1 S2 regular. No murmurs, rubs or gallops. Gastrointestinal: Abdomen soft, non-tender, non-distended. Normal bowel sounds.? Neurologic: Cranial nerves II-XII grossly intact. No focal neurological deficits. Moves all extremities spontaneously.? Strengt 5/5 in both legs and arms Skin: No rashes or lesions.? Musculoskeletal: No cyanosis or clubbing. Psychiatric: Normal mood and affect? Results Labs 12/08/23 19:43 12/08/23 19:43 Labs: Laboratory Results - last 24 hr 12/08/23 19:43 MCV 89.9 MCH 31.3 MCHC 34.8 RDW 12.4 Plt Count 161 MPV 9.9 Immature Gran % (Auto) 0.1 Neut % (Auto) 81.4 H Lymph % (Auto) 9.7 L Amelia % (Auto) 7.0 Eos % (Auto) 1.2 Baso % (Auto) 0.6 Lymph # (Auto) 0.8 L Amelia # (Auto) 0.6 Eos # (Auto) 0.1 Baso # (Auto) 0.1 Abs Immat Gran (auto) 0.01 Absolute Neuts (auto) 6.5 Absolute Nucleated RBC 0.000 Nucleated RBC % (auto) 0.0 PT 12.0 INR 1.0 Anion Gap 15 Estim Creat Clear Calc 47.5 Estimated GFR > 60 Random Glucose 99 Calcium 9.3 Total Bilirubin 0.5 AST 17 ALT 20 Alkaline Phosphatase 110 Troponin I High Sens 4.7 D Total Protein 6.3 L Albumin 3.7 Lipase 37 Imaging Radiologist's Impressions: Impressions Head CT 12/08/23 18:42 IMPRESSION: 1. No evidence of acute intracranial hemorrhage or edematous territorial infarction. 2. Moderate to extensive underlying microangiopathy and generalized cerebral volume loss. Small lacunar infarcts of the deep nuclei. Electronically signed by: Ralph Zamorano DO 12/08/2023 07:03 PM EDT RP Head/Neck CTA 12/08/23 18:47 IMPRESSION: 1. No evidence of progressive steno-occlusive disease of the intracranial vasculature. Stable moderate to severe atherosclerotic disease throughout the anterior and posterior circulation as above. 2. No significant steno-occlusive disease in the neck. 3. Partially imaged patulous partially fluid-filled esophagus with air-fluid level. No proximal large vessel occlusion and extensive atherosclerotic disease communicated to at 7:03pm on 12/08/[address] Zamorano and it was ascertained that the content and urgency of the report was understood at the time of direct communication. Electronically signed by: Kayla Charles MD 12/08/2023 07:36 PM EDT RP Assessment and Plan (1) Expressive aphasia: Status: Acute (2) TIA (transient ischemic attack): Status: Acute Plan 87/F with h/o TIA, CVA, GERD, siezure d/o, hypoT, GERD here with recurrent, and transientexpressive apahoasia of unclear etiology Expressive aphasia ? TIA, negative work up including MRI recently, no acute finding on CT head and CTA of H/N today -reconsult Neuro -Speech therapy consult HypoT -Synthroid Seizure disorder -continue Keppra HTN -resume meds after med rec HLD -Lipitor Anxiety d/o - ativan 0.5 mg daily GERD -PPI DVT prophylaxis--Lovenox Obs Quality Stroke Does the patient have a stroke diagnosis?: No VTE Prior VTE?: No VTE Risk Level:: Medical - moderate - high VTE Device Contraindication: Treatment Not Indicated VTE Drug Contraindication: N/A - Med Ordered
[2023-12-08 22:03] VITALS: BP 157/84; PULSE 77; RESP 17; TEMP 37; O2SAT 98
[2023-12-08] MEDS: Enoxaparin Sodium 40 MG/0.4 ML SYRINGE SUBCUT (23:41)
[2023-12-08] MEDS: 0.9 % Sodium Chloride Flush 3 ML SYRINGE IVFLUSH (23:42)
[2023-12-09 00:07] VITALS: BP 167/80; PULSE 79; RESP 17; TEMP 36.7; O2SAT 98
--- NOTE | 2023-12-09 03:23 | PC.NURSE ---
Pt woke. Assisted with change of bedding and purewik placed for comfort.
[2023-12-09 05:17] VITALS: BP 165/75; PULSE 74; RESP 22; TEMP 36.9; O2SAT 94
--- NOTE | 2023-12-09 07:22 | PC.NURSE ---
Patient without diet order , message sent to provider regarding diet order ? of speech eval
--- NOTE | 2023-12-09 07:26 | PC.NURSE ---
Called separating machine operator to place patient on list for speech eval to come in and see this morning
--- NOTE | 2023-12-09 07:29 | PC.NURSE ---
Message left for Savannah from speech to see patient today
[2023-12-09 07:53] LABS: Anion Gap 12 (12-20); Blood Urea Nitrogen 6 mg/dL (9-16); Calcium 8.9 mg/dL (8.4-10.2); Carbon Dioxide 23 mmol/L (22-29); Chloride 102 mmol/L (96-108); Estimated Glomerular Filt Rate > 60; Glucose Random 99 mg/dL (60-115); Potassium 3.5 mmol/L (3.3-5.1); Sodium 133 mmol/L (135-145)
--- NOTE | 2023-12-09 08:19 | PHA.MEDREC ---
Pharmacy Consult ? Medication Reconciliation Pharmacy has completed the medication reconciliation. Recently discharged 12/03/23. Utilized discharge packet.
[2023-12-09] MEDS: levETIRAcetam in NaCl (iso-os) 1,000 MG/100 ML PIGGYBACK 400 MG IV (08:20)
[2023-12-09 09:11] VITALS: BP 147/70; PULSE 73; RESP 18; TEMP 36.8; O2SAT 97
--- NOTE | 2023-12-09 09:50 | PM.NEUROCN ---
History of Present Illness Data of Consult Service Date: 12/09/23 Primary Care Provider: Marie Villanueva MD [facility] Reason for consult: Difficulty speaking 87 years old woman who I recently sign hospital with difficulty speaking. My impression was that she primarily suffered from speech disorder, which might have been triggered by spasmodic dysphonia. She was back in hospital last night and was worked up for stroke again with no acute lesion noted. Review of Systems Review of Systems: No recent seizure-like episode PMFSH Past Medical History Medical History Cerebral infarction Left leg DVT Upper respiratory infection COVID-19 virus infection Burning with urination Buttock pain Status post fall Dog bite of right arm Adult general medical exam Screening for diabetes mellitus Impacted cerumen of both ears Facial lesion Overweight (BMI 25.0-29.9) Hip osteoarthritis T12 vertebral fracture Reactive airways dysfunction syndrome Pneumonia Cholelithiasis CVA (cerebral vascular accident) Obesity (BMI 30-39.9) Hypercholesterolemia Vitamin D deficiency Hypothyroid Seizure disorder Anxiety Gout GERD (gastroesophageal reflux disease) Psoriatic arthritis Hypertension Family History Family History Father No problems noted. Mother Acute CVA (cerebrovascular accident) Diabetes Brother Cancer Daughter History of nephrectomy Son Heart disease Surgical History Surgical History History of Mohs surgery for squamous cell carcinoma of skin History of cataract surgery History of colonoscopy History of knee replacement procedure of right knee History of left knee replacement Social History Social History Household Members: Family Household Members Other:: Daughter (Katie) and son-in-law Housing: House Alcohol intake: never Patient Tobacco Use Status: Never used Tobacco Smoked in Last 30 Days: No e-Cigarette/Vaping Use: Never Used Second Hand Smoke Exposure: No Use of substances other than those prescribed or required for medical reasons: No Advance Directives: Yes Advance Directives on File: Yes Advance Directives Date on File: 12/04/23 Do you have a plan to hurt others: No Plan service: No Current occupational status: retired Cognitive needs: No Hearing needs: Yes (hearing aides) Vision needs: No Meds Allergies Allergy/AdvReac Type Severity Reaction Status Date / Time hydrochlorothiazide Allergy Unknown Electrolyte Verified 12/08/23 19:01 abnormality oxycodone [OXYCODONE] Allergy Unknown VOMITTING,C Verified 12/08/23 19:01 ONFUSION amlodipine AdvReac Intermediate leg Verified 12/08/23 19:01 swelling lisinopril AdvReac Intermediate cough Verified 12/08/23 19:01 losartan AdvReac Intermediate hyponatremi Verified 12/08/23 19:01 a Active Medications: Current Medications Acetaminophen (Acetaminophen 325 Mg Tablet) 650 mg PO Q6H PRN PRN Reason: Pain, Mild (Pain Scale 1-3), fever or headache Aspirin (Aspirin Enteric Coated 81 Mg Tablet.) 81 mg PO DAILY [facility] Atorvastatin Calcium (Atorvastatin Calcium 80 Mg Tablet) 80 mg PO DAILY [facility] Calcium Carbonate (Calcium Carbonate 750 Mg Tab.Chew) 750 mg PO Q4H PRN PRN Reason: Heartburn Enoxaparin Sodium (Enoxaparin Sodium 40 Mg/0.4 Ml Syringe) 40 mg SUBCUT Q24H MORENO Last Admin: 12/08/23 23:41 Dose: 40 mg Levetiracetam (Levetiracetam 1,000 Mg Tablet) 1,000 mg PO BID [facility] Levothyroxine Sodium (Levothyroxine Sodium 88 Mcg Tablet) 88 mcg PO DAILY@0600 [facility] Loratadine (Loratadine 10 Mg Tablet) 10 mg PO DAILY [facility] Lorazepam (Lorazepam 0.5 Mg Tablet) 0.5 mg PO DAILY@1700 [facility] Magnesium Hydroxide (Milk Of Magnesia 30 Ml Oral.Susp) 30 ml PO DAILY PRN PRN Reason: Constipation Magnesium Oxide (Magnesium Oxide 400 Mg Tablet) 400 mg PO DAILY [facility] Melatonin (Melatonin 3 Mg Tablet) 6 mg PO BEDTIME PRN PRN Reason: Insomnia Metoprolol Succinate (Metoprolol Succinate Er 25 Mg Tab.Er.24h) 25 mg PO DAILY [facility]; Protocol Mirabegron (Mirabegron 25 Mg Tab.Er.24h) 25 mg PO DAILY [facility] Omeprazole (Omeprazole 20 Mg Capsule.) 20 mg PO BID@0630,1630 [facility] Ondansetron HCl (Ondansetron Hcl 4 Mg/2 Ml Vial) 4 mg IVPUSH Q8H PRN PRN Reason: Nausea and Vomiting Sodium Chloride (0.9 % Sodium Chloride Flush 3 Ml Syringe) 3 ml IVFLUSH QSHIFT MORENO Last Admin: 12/09/23 08:23 Dose: Not Given Home Medications ?Medication ?Instructions ?Recorded ?Confirmed ?Last Taken ?Type acetaminophen 500 mg tablet 1,000 mg PO DAILY PRN Pain 12/03/23 12/09/23 Unknown History atorvastatin 80 mg tablet 80 mg PO DAILY 12/03/23 12/09/23 12/02/23 History lorazepam 1 mg tablet 0.5 mg PO DAILY@1700 anxiety 12/03/23 12/09/23 12/01/23 History Physical Exam Vital Signs: Vital Signs: Last Vital Signs Temp 98.2 F 12/09/23 09:11 Pulse 73 12/09/23 09:11 Resp 18 12/09/23 09:11 BP 147/70 H 12/09/23 09:11 Pulse Ox 97 12/09/23 09:11 O2 Del Method Room Air 12/09/23 09:11 BMI result Body Mass Index 26.9 Neuro: Other: She is alert and awake with decreased spontaneity and fluency of speech with changing rhythm of speech. She is able to name, repeat, read and comprehend. Otherwise no new focal finding is noted. Results Labs 12/08/23 19:43 12/09/23 07:32 Labs: Short CBC 12/08/23 Range/Units 19:43 WBC 8.0 (4.8-10.8) X10*3/uL Hgb 13.6 (12.0-16.0) g/dl Hct 39.1 (37.0-47.0) % Plt Count 161 (160-400) X10*3/uL BMP 12/08/23 12/09/23 19:43 07:32 Sodium 129 L 133 L Potassium 3.8 D 3.5 Chloride 99 102 Carbon Dioxide 19 L 23 BUN 9 6 L Creatinine 0.70 0.68 Calcium 9.3 8.9 Liver Function 12/08/23 Range/Units 19:43 Total Bilirubin 0.5 (0.0-1.0) mg/dL AST 17 (5-31) U/L ALT 20 (0-31) U/L Alkaline Phosphatase 110 (39-117) U/L Albumin 3.7 (3.5-5.0) g/dL Assessment and Plan (1) Speech disorder: Status: Acute 87 years old woman with a speech disorder that probably is 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 My recommendation is to continue her previous medicines and obtain an outpatient ENT evaluation for form or ENT exam, which could help to make diagnosis of spasmodic dysphonia. Procedures Date of Service Date of Service: 12/09/23
--- NOTE | 2023-12-09 09:53 | MHC.SL.SWA ---
Speech Pathologist Impression: Risk of Aspiration Risk of Aspiration Due to: Confusion Dysphasia Diet Status: Start on NDD3/Thin Liquid Consistency and Strategies for Safe Swallow: Liquid Intake Recommendation: Thin Liquid Intake Strategies: Small Sips Solid Food Consistency: Dietary Recommendations: Chopped/Advanced (NDD3) Additional Modifications to Solid Foods: Mildly slowed and prolonged mastication, otherwise swallow deemed mostly WFL. Note good oral control, timely swallow, good oral clearance, and no overt s/s of aspiration. Patient presents with some confusion and scattered dentition is noted. Recommend START on Chopped/Advanced (NDD3) diet and Thin liquids, pills to be administered Whole in Puree or Liquid. Patient will need assistance with set up of tray, supervise and re-orient to feeding as needed. Oral Medication Intake: Whole with Liquid Please contact the pharmacy regarding appropriate crushable or liquid drug formulations that are available whenever modified delivery is recommended. Compensatory Strategies and Precautions to be Taken for Safe Swallow: Sitting Upright (90 deg) Small Bites and Sips Alternate Liquids/Solids Rate of Ingestion Change Supervision While Eating and Drinking for Safe Swallow: Total Supervision (1:1) Foods to Avoid: Difficult to chew solids. Swallowing Recommended Treatments: Compens. Strategy Educat. Recommendation for Speech: Inpatient Speech Therapy Comment: 1 f/u while inpatient Neck Skewer Clinican/Clinical Fellow: No Supervisory Statement: I have reviewed and agree with the student/clinical fellow's documentation: N/A Speech Language Pathologist: Savannah Louis M.A., CCC-INFORMATION SYSTEMS PROFESSOR
[2023-12-09] MEDS: Atorvastatin Calcium 80 MG TABLET PO (10:05)
[2023-12-09] MEDS: Aspirin Enteric Coated 81 MG TABLET.DR PO (10:05)
[2023-12-09 14:11] VITALS: BP 157/80; PULSE 94; RESP 14; O2SAT 96
--- NOTE | 2023-12-09 14:26 | P.DS_ITS ---
DS: Providers Provider Date of Service: 12/09/23 Date of admission: 12/08/23 22:12 Date of discharge: 12/09/23 Primary care physician: Marie Villanueva MD Consults: 12/09/23 02:00 Consult to Neurology Routine Consulting Provider: [facility] Reason for consultation: expressive aphasia 12/09/23 07:42 Consult to Gastroenterology Routine Consulting Provider: Lenny Fletcher Reason for consultation: ?esophageal motility disorder Has provider been notified: No Attending physician on discharge: David Vera Discharging clinician: Roxann Saini DS: Diagnosis Discharge Diagnosis (1) Speech disorder: Status: Acute DS: Summary Hospital Course Hospital Course: From H&p on the day of admission An 87-year-old woman with a past medical history significant for a TIA in 2018, hypothyroidism, migraine headaches, vitamin D deficiency, seizure disorder on Keppra, GERD, and essential hypertension was admitted in September for a CVA. She was readmitted on December 01 and discharged the next day due to transient expressive aphasia. 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 Dr. Hawthorne examined her with a scope and found no vocal cord abnormalities. She had been doing well until today when her symptoms returned, including an inability to talk, incoherent, and garbled speech, similar to the last episode according to her son and daughter. A CT of the head and CTA of the head and neck show no acute findings. Of note, an MRI on 12/02 also showed no acute abnormalities. According to the family, her symptoms are less prominent compared to the initial presentation. Expressive aphasia h/o stroke, h/o TIA; imaging with Extensive moderate to severe multifocal stenoses throughout the anterior and posterior intracranial circulations but no No arterial high-grade stenosis or discrete large vessel occlusion is identified. Moderate to extensive underlying microangiopathy and generalized cerebral volume loss She was seen by speech who recommended NDD3 diet and supervision while eating. O n last admission neurology recommended ruling out spasmodic dysphonia. She did see ENT as an outpatient and there was no evidence of this found on exam. 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 No further workup recommended. Symptoms have started to improve and are similar to previous admissions. Continue baseline aspirin, statin, and seizure medications. No seizure activity was noted. Recommend outpatient follow up with speech therapy and PCP. She was able to ambulate in the ED and daughter felt she was steady and at her baseline from that perspective and felt comfortable taking her home. Can continue prn ativan for episodes of anxiety/panic. No adjustments were made indications. Time Attestation Discharge Coordination Time (in mins): 36 Quality: Safe Use of Opioids Does Pt have an Active Cancer Diagnosis on the Problem List?: No Quality: Stroke Does the patient have a stroke diagnosis?: No Physical Exam Vital Signs: Vital Signs: Last Vital Signs Temp 98.2 F 12/09/23 09:11 Pulse 94 12/09/23 14:11 Resp 14 12/09/23 14:11 BP 157/80 H 12/09/23 14:11 Pulse Ox 96 12/09/23 14:11 O2 Del Method Room Air 12/09/23 14:11 BMI result Body Mass Index 26.9 Const: General: cooperative, comfortable, no acute distress, alert and awake Nutritional Appearance: average body habitus Resp: Effort & Inspection: normal respiratory effort, able to speak in complete sentences, no respiratory distress and no use of accessory muscles Cardio: Rate: regular rate GI: Inspection: No distended Palpation (GI): Soft to palpation and nontender Neuro: Other: able to follow commands and move all extremities; no facial droop. able to answer yes and no questions, able say simple words Extrem: General: Yes no pedal edema DS: Data Data Completed and Pending Labs on day of discharge: Laboratory Results - last 24 hr 12/08/23 12/09/23 19:43 07:32 WBC 8.0 RBC 4.35 Hgb 13.6 Hct 39.1 MCV 89.9 MCH 31.3 MCHC 34.8 RDW 12.4 Plt Count 161 MPV 9.9 Immature Gran % (Auto) 0.1 Neut % (Auto) 81.4 H Lymph % (Auto) 9.7 L [place] % (Auto) 7.0 Eos % (Auto) 1.2 Baso % (Auto) 0.6 Lymph # (Auto) 0.8 L [place] # (Auto) 0.6 Eos # (Auto) 0.1 Baso # (Auto) 0.1 Abs Immat Gran (auto) 0.01 Absolute Neuts (auto) 6.5 Absolute Nucleated RBC 0.000 Nucleated RBC % (auto) 0.0 PT 12.0 INR 1.0 Sodium 129 L 133 L Potassium 3.8 D 3.5 Chloride 99 102 Carbon Dioxide 19 L 23 Anion Gap 15 12 BUN 9 6 L Creatinine 0.70 0.68 Estim Creat Clear Calc 47.5 49.0 Estimated GFR > 60 > 60 Random Glucose 99 99 Calcium 9.3 8.9 Total Bilirubin 0.5 AST 17 ALT 20 Alkaline Phosphatase 110 Troponin I High Sens 4.7 D Total Protein 6.3 L Albumin 3.7 Lipase 37 Discharge Plan Discharge Patient Disposition: Home Health Service Referrals: Po,Marie Renner MD [Primary Care Provider] - 1 Week Discharge Medications: Continued Myrbetriq 25 mg tablet extended release 24 hr 25 mg PO DAILY Qty: 90 2RF omeprazole 20 mg capsule,delayed release(DR/EC) 20 mg PO BID Qty: 180 2RF magnesium oxide 400 mg magnesium capsule 400 mg PO DAILY Qty: 90 1RF levothyroxine 88 mcg tablet 88 mcg PO DAILY@0600 90 Days Qty: 90 1RF levetiracetam 1,000 mg tablet 1,000 mg PO BID Qty: 180 0RF loratadine 10 mg tablet 10 mg PO DAILY Qty: 30 5RF aspirin 81 mg Tablet,Delayed Release (Dr/Ec) 81 mg PO DAILY Qty: 30 0RF acetaminophen 500 mg Tablet 1,000 mg PO DAILY PRN (Reason: Pain) atorvastatin 80 mg tablet 80 mg PO DAILY lorazepam 1 mg tablet 0.5 mg PO DAILY@1700 metoprolol succinate 25 mg tablet extended release 24 hr 25 mg PO DAILY Qty: 30 3RF No Action (DME) low height rollator See Rx Instructions .Route .MEDSUPPLY Qty: 1 0RF Rx Instructions: As directed Discharge Orders: Discharge Order (Routine); Ordered 12/09/23 Ordered By: Roxann Saini Activity on Discharge: As tolerated Stand Alone Forms: Patient Portal Discharge page Print Language: Bulgarian Care Plan Goals: see below Health Concerns: aphasia multifactorial dementia Plan of Treatment: outpatient speech therapy continue aspirin and statin Assessment: see discharge summary
--- NOTE | 2023-12-09 15:04 | W.MHC.F2F ---
Service Date Service Date: 12/09/23 Encounter Date of encounter: 12/09/23 Reasons for Services Signs and symptoms assessed: needs senior living for neurological monitoring, assistance with medication administration and speech therapy for aphagia Reason for senior living: medication management MD Overseeing Care: Marie Villanueva Homebound: Leaving the home is medically contraindicated at this time without the asist of a device and/or another person due th the listed conditions above and below. Reason homebound: cognitively impaired / unsafe Certification: Based on the above findings, I certify that this patient is confined to the home and needs intermittent senior living care, physical therapy and/or speech therapy, or continues to need occupational therapy. The patient is under my care, and I have initiated the establishment of the plan of care. The patient will be followed by a physician who will periodically review the plan of care. Time Spent With Patient Time: Total time managing care of this patient today ____ minutes.
[2023-12-09 15:39] VITALS: BP 157/81; PULSE 102; RESP 18; TEMP 36.4; O2SAT 100
--- NOTE | 2023-12-09 15:47 | MHC.CM.PN ---
PT BEING DISCHARGED, [facility] ORDERED FOR SN AND SPEECH REFERRAL SENT TO [facility] AWAITING RESPONSE
--- NOTE | 2023-12-09 22:16 | CONS_ITS ---
DATE OF SERVICE: 12/09/2023 REFERRING PHYSICIAN: Dr. Martinez REASON FOR CONSULTATION: Question of esophageal dysmotility. HISTORY OF PRESENT ILLNESS: The patient is a pleasant 87-year-old woman admitted to the hospital after presenting to the emergency room with a change in mental status. Consultation is requested regarding the patient's possible diagnosis of esophageal dysmotility. The patient is seen in the emergency department with her daughter at her bedside. She describes difficulty swallowing large pills, but no problems with liquids, solids, or other foods. She has no aspiration symptoms. PAST MEDICAL HISTORY: 1. TIA. 2. Hypertension. 3. Hypothyroidism. 4. Migraine headaches. 5. DVT. 6. Cerebral infarction. 7. Elevated BMI. 8. Gallstones. 9. Hyperlipidemia. CURRENT MEDICATIONS: Her current medication list is reviewed in the chart. ALLERGIES: MULTIPLE MEDICATION ALLERGIES ARE REVIEWED. FAMILY HISTORY: This is reviewed with the patient and is noncontributory. SOCIAL HISTORY: There is no current tobacco, alcohol, or substance abuse. REVIEW OF SYSTEMS: This is difficult as the patient has aphasia. PHYSICAL EXAMINATION: GENERAL: Shows a pleasant female, in no acute distress. SKIN: Anicteric. LUNGS: Clear. HEART: Shows a regular rate and rhythm. S1, S2. No murmur. ABDOMEN: Soft without focal masses or tenderness. Bowel sounds are present. No organomegaly is noted. EXTREMITIES: Without edema. RADIOLOGY AND DIAGNOSTIC DATA: Laboratory studies and CT imaging are reviewed. IMPRESSION: Question of esophageal dysmotility. At this point, the patient appears to have no difficulty with swallowing items except large pills. I discussed with the patient's daughter about possibly changing formulation of her medications to those which can be chewed or placed in applesauce for easy swallowing. At this time, she does not need any further evaluation with endoscopy. Based on her age, I would say the likelihood of esophageal dysmotility is very high or this is not affecting her swallowing ability. We discussed this in detail today. Thank you for asking me to see her. I will follow her in the hospital with you. MD EMANUEL Edmond/TONY / [phone]
== END 2023-12-09 15:37 | disposition home health service (06) ==
LOC: HO.ED 20:32 → HO.EDOVER 22:27
PROVIDERS: Physician Assistant; Admitting Provider Internal Medicine; Emergency Provider Emergency Medicine; PCP Internal Medicine; Visit Provider Physician Assistant Medical
DX: R47.01 Aphasia (principal); G40.909 Epilepsy, unspecified, not intractable, without status epilepticus; F03.90 Unspecified dementia, unspecified severity, without behavioral disturbance, psychotic disturbance, mood disturbance, and anxiety; K21.9 Gastro-esophageal reflux disease without esophagitis; R47.9 Unspecified speech disturbances; R53.1 Weakness; I10 Essential (primary) hypertension; E78.5 Hyperlipidemia, unspecified; M10.9 Gout, unspecified; L40.50 Arthropathic psoriasis, unspecified; E03.9 Hypothyroidism, unspecified; Z86.73 Personal history of transient ischemic attack (TIA), and cerebral infarction without residual deficits; Z79.899 Other long term (current) drug therapy
CPT/HCPCS: 36415; 70450; 70496; 70498; 80048; 80053; 83690; 84484; 85025; 85610; 92610; 93005; 96361; 96365; 96372; 99222; 99285; J1650; J1953; Q9967

== ENCOUNTER → 2023-12-08 22:12 | Outpatient (BNV) | payer MEDICARE, SELFPAY | PROVIDERS: Admitting Provider Internal Medicine; Emergency Provider Emergency Medicine; PCP Internal Medicine; Visit Provider Psychiatry & Neurology Neurology | DX: R47.9 Unspecified speech disturbances (principal) | CPT/HCPCS: 99221 ==

== ENCOUNTER → 2023-12-08 22:12 | Outpatient (BNV) | payer MEDICARE, SELFPAY | PROVIDERS: Admitting Provider Internal Medicine; Emergency Provider Emergency Medicine; PCP Internal Medicine; Visit Provider Physician Assistant Medical | DX: R47.01 Aphasia (principal); G45.9 Transient cerebral ischemic attack, unspecified | CPT/HCPCS: 99222; 99239; G0180 ==

== ENCOUNTER 2023-12-17 10:49 | Outpatient (AMB) | payer MEDICARE, SELFPAY ==
--- NOTE | 2023-12-17 10:51 | MHC.PC.OV ---
Vital Signs 12/17/23 10:52 Height 5 ft Weight 132 lb 15.02 oz BMI 26.0 BP 140/74 H Blood Pressure Location Lt brachial Position Sitting Pulse 67 Pulse Source Pulse Oximeter Pulse Oximetry (%) 98 Oxygen Delivery Method Room Air Intake Visit Reasons: [facility] 12/07 expressive aphasia Supervisor In Charge Required: No Accompanied by: Self / Same As Patient Allergies hydrochlorothiazide Allergy (Unknown, Verified 12/17/23 10:56) Electrolyte abnormality oxycodone [OXYCODONE] Allergy (Unknown, Verified 12/17/23 10:56) VOMITTING,CONFUSION amlodipine Adverse Reaction (Intermediate, Verified 12/17/23 10:56) leg swelling lisinopril Adverse Reaction (Intermediate, Verified 12/17/23 10:56) cough losartan Adverse Reaction (Intermediate, Verified 12/17/23 10:56) hyponatremia Medication List - Last Reconciled 12/17/23 by Archana Corado PA-C [low height rollator As directed] acetaminophen 1,000 mg PO DAILY PRN aspirin 81 mg PO DAILY atorvastatin 80 mg PO DAILY levetiracetam 1,000 mg PO BID levothyroxine 88 mcg PO DAILY@0600 90 days loratadine 10 mg PO DAILY lorazepam 0.5 mg PO DAILY@1700 magnesium oxide 400 mg PO DAILY metoprolol succinate ER 25 mg PO DAILY mirabegron ER (Myrbetriq) 25 mg PO DAILY omeprazole 20 mg PO BID Tobacco use date assessed: 07/02/23 Fall risk assessment: No Falls in past year Last assessed Fall Risk: 12/17/23 Dental Screening Dental Screen Date: 09/26/23 HPI [facility] 12/07 expressive aphasia HPI Details 87-year-old overweight female with history of hypertension GERD hypothyroidism hypercholesterolemia generalized anxiety disorder and cognitive impairment last seen December 2023 coming in for hospital follow up. In review of the notes, patient was seen in [facility] ED 12/08/2023 for expressive aphasia. Of note she was recently seen for similar concern and was consulted by Neurology who advised spasmodic dysphonia however was seen by ear nose and throat sono vocal cord abnormalities. She was admitted for observation. She was consulted by GI who determined no further evaluation was needed. She is also consulted by Neurology who recommended outpatient ENT follow up. Patient was discharged home to continue on aspirin and statin and continue with outpatient speech therapy. Patient presents today with her son who states that she has been having fluctuating mental capacity. She will have moments of clarity and be able to answer prompts appropriately and on the other hand will have difficulty with writing her name on a piece of paper. They did see ENT prior to her last appointment with us and spasmodic dysphonia was ruled out at that time. They do have an additional follow up with Neurology this for further investigation into the aphasia and cognitive deficits. He does also mentioned she has had symptoms like this in the past that were related to a urinary tract infection as well. [facility] Medical History Cerebral infarction Left leg DVT Upper respiratory infection COVID-19 virus infection Burning with urination Buttock pain Status post fall Dog bite of right arm Adult general medical exam Screening for diabetes mellitus Impacted cerumen of both ears Facial lesion Overweight (BMI 25.0-29.9) Hip osteoarthritis T12 vertebral fracture Reactive airways dysfunction syndrome Pneumonia Cholelithiasis CVA (cerebral vascular accident) Obesity (BMI 30-39.9) Hypercholesterolemia Vitamin D deficiency Hypothyroid Seizure disorder Anxiety Gout GERD (gastroesophageal reflux disease) Psoriatic arthritis Hypertension Surgical History History of Mohs surgery for squamous cell carcinoma of skin History of cataract surgery History of colonoscopy History of knee replacement procedure of right knee History of left knee replacement Family History Father No problems noted. Mother Acute CVA (cerebrovascular accident) Diabetes Brother Cancer Daughter History of nephrectomy Son Heart disease Social History Household Members: Family Household Members Other:: Daughter (Katie) and son-in-law Housing: House Alcohol intake: never Patient Tobacco Use Status: Never used Tobacco Tobacco use type: Cigarette e-Cigarette/Vaping Use: Never Used Second Hand Smoke Exposure: No Advance Directives Date on File: 12/04/23 service: No Current occupational status: retired Cognitive needs: No Hearing needs: Yes (hearing aides) Vision needs: No Questionnaire PHQ-9 Over the last 2 weeks, how often have you been bothered by any of the following problems? 1. Little interest or pleasure in doing things: not at all 2. Feeling down, depressed, or hopeless: not at all 3. Trouble falling or staying asleep, or sleeping too much: not at all 4. Feeling tired or having little energy: not at all 5. Poor appetite or overeating: not at all 6. Feeling bad about yourself - or that you are a failure or have let yourself or your family down: not at all 7. Trouble concentrating on things, such as reading the newspaper or watching television: not at all 8. Moving or speaking so slowly that other people could have noticed. Or the opposite - being so fidgety or restless that you have been moving around a lot more than usual: not at all 9. Thoughts that you would be better off or of hurting yourself in some way: not at all Total score: 0 Depression Screening Interpretation: Negative Depression Screening Done: Yes 33896 - PHQ-9 Billing: Yes Source: Developed by Drs. Satish Summers, Radha Honeycutt, Tani Gonzales and colleagues, with an educational milton from [employer]. Thrive Questionnaire Date Thrive assessed: 12/03/23 AUDIT C Alcohol Use Questionnaire (AUDIT-C) 1. How often do you have a drink containing alcohol?: Never 3. How often do you have six or more drinks on one occasion?: Never Total Score: 0 Score Reviewed/Action Taken: No HAZEL-7 AMB Questionnaire HAZEL-7 Date HAZEL - 7 assessed: 12/05/23 Source: Developed by Drs. Satish Summers, Tani Morgan and colleagues, with an educational milton from [employer]. Review of Systems Const Denies fever(s) Eyes Reports no additional complaints ENT Reports no additional complaints Card Denies chest pain, Denies lightheadedness and Denies dyspnea Resp Denies cough and Denies dyspnea GI Reports no additional complaints Reports no additional complaints Musc Reports no additional complaints Neuro Reports as per HPI Physical exam (Primary Care) Vital Signs: Last Vital Signs Pulse 67 12/17/23 10:52 BP 140/74 H 12/17/23 10:52 Pulse Ox 98 12/17/23 10:52 Oxygen Delivery Method Room Air 12/17/23 10:52 BMI result Body Mass Index 26.0 Tobacco/Smoking Status: Tobacco use Status Tobacco use date assessed 07/02/23 12/17/23 10:55 Patient Tobacco Use Status Never used Tobacco 12/17/23 10:55 Tobacco use type Cigarette 12/17/23 11:00 e-Cigarette/Vaping Use Never Used 12/17/23 10:55 PHQ-9: PHQ-9 Score PHQ-9: Total score 0 12/17/23 11:57 Depression Screening Interpretation: Negative Thrive Assessment: Date of Thrive Assessment Date Thrive assessed 12/03/23 12/17/23 10:55 Const General: cooperative, healthy appearing, comfortable and no acute distress Orientation/consciousness: oriented to person HENOH Head: Yes normocephalic Ears: hearing grossly normal bilaterally General nose exam: Normal external nose present Eyes General: appearance normal, both eyes and all related structures Conjunctivae: conjunctivae normal Neck Neck: Yes full ROM and Yes no lymphadenopathy Resp Effort & Inspection: normal respiratory effort Auscultation: clear to auscultation bilaterally, no crackles, no rales, no rhonchi and no wheezes Cardio Rate: regular rate Rhythm: regular rhythm Skin General skin exam: no rashes or lesions noted Neuro General: oriented to person Gait exam (Neuro): Normal gait present Extrem General: Yes normal to inspection, Yes full ROM and No edema Psych Other: Patient has difficulty communicating and answering properly appropriately. Looks to son for answers to prompts. Affect: normal affect Attitude: cooperative Assessment and Plan Assessment & Plan (1) Altered mental status: Code(s): R41.82 - Altered mental status, unspecified Plan: Patient to follow up with Neurology this week for cognitive deficits. We will also order for urinalysis with culture to be completed at home and brought back the lab to evaluate for urinary tract infection. (2) Speech disorder: Code(s): R47.9 - Unspecified speech disturbances Plan: Follow up with Neurology this week. Continue to follow with speech therapy. Ear nose and throat ruled out spasmodic dysmotility and Gastroenterology did not feel endoscopy was appropriate at this time. Plan This note was constructed using voice recognition software. While every effort has been made to ensure accuracy and contact clerk, still areas may have been included sometimes these areas may affect the content or meeting of the given symptoms. Total time spent caring for the patient today was 30 minutes. This includes time spent before the visit reviewing the chart, time spent during the visit, and time spent after the visit and documentation. Orders: Orders UA and rflx microscopic Today R41.82 - Altered mental status, unspecified Coding Level of Care Code Est Pt Level 3 (12511) Diagnoses Altered mental status R41.82 Speech disorder R47.9
[2023-12-17 10:52] VITALS: BP 140/74; PULSE 67; O2SAT 98; BMI 26.0
== END 2023-12-17 12:01 | disposition home or self-care (01) ==
PROVIDERS: PCP Internal Medicine
DX: R41.82 Altered mental status, unspecified (principal); R47.9 Unspecified speech disturbances

== ENCOUNTER → 2023-12-17 10:49 | Outpatient (BNVA) | payer MEDICARE, SELFPAY | PROVIDERS: PCP Internal Medicine | DX: R47.9 Unspecified speech disturbances (principal); R41.82 Altered mental status, unspecified | CPT/HCPCS: 99212 ==

== ENCOUNTER 2023-12-18 15:24 | Outpatient (REF) | payer MEDICARE, SELFPAY ==
[2023-12-18 15:36] LABS: Appearance Urine Clear; Color Urine Yellow; Glucose Urine UA Negative (Negative); Leukocyte Esterase Urine Small (1+) (Negative); Nitrite Urine Negative (Negative); UMIC TRIGGER UA YES; Urine Blood Negative (Negative); Urine Ketones Negative (Negative); Urine Protein Negative (Neg-Trace)
[2023-12-18 15:56] LABS: Bacteria Urine None Seen (None Seen); Hyaline Casts Urine 0-2 /LPF (0-2); RBC Urine 0-2 /HPF (0-2); Squamous Epithelial Cell Urine 0-2 /HPF (0-2)
== END 2023-12-18 15:25 | disposition home or self-care (01) ==
LOC: HO.LNP 15:24
DX: R41.82 Altered mental status, unspecified (principal)
CPT/HCPCS: 81001

== ENCOUNTER 2024-01-02 12:52 | Outpatient (REF) | payer MEDICARE, SELFPAY ==
[2024-01-02 13:07] LABS: Appearance Urine Clear; Color Urine Yellow; Glucose Urine UA Negative (Negative); Leukocyte Esterase Urine Small (1+) (Negative); Nitrite Urine Negative (Negative); Specific Gravity - Urine <= 1.005 (1.005-1.025); UMIC TRIGGER UACC YES; Urine Blood Negative (Negative); Urine Ketones Negative (Negative); Urine Protein Negative (Neg-Trace)
[2024-01-02 13:18] LABS: Bacteria Urine None Seen (None Seen); Hyaline Casts Urine 0-2 /LPF (0-2); RBC Urine 0-2 /HPF (0-2); Squamous Epithelial Cell Urine 0-2 /HPF (0-2); UACC Culture Trigger YES; WBC Urine 0-5 /HPF (0-5)
== END 2024-01-02 12:53 | disposition home or self-care (01) ==
LOC: HO.LNP 12:52
PROVIDERS: Visit Provider Internal Medicine
DX: R30.0 Dysuria (principal); R41.82 Altered mental status, unspecified
CPT/HCPCS: 81001; 81003; 87086; 87147

== ENCOUNTER 2024-01-18 09:54 | Outpatient (AMB) | payer MEDICARE, SELFPAY ==
[2024-01-18 09:55] VITALS: BP 120/74; PULSE 82; O2SAT 97; BMI 26.4
--- NOTE | 2024-01-18 09:55 | HO.NEPHOV_ITS ---
Vital Signs 01/18/24 09:55 Height 5 ft Weight 135 lb BMI 26.4 BP 120/74 Blood Pressure Location Rt brachial Position Sitting Pulse 82 Pulse Source Pulse Oximeter Pulse Oximetry (%) 97 Oxygen Delivery Method Room Air Intake Visit Reasons: Hypertension/ 6 MO FU- Conf w/son [employer] Line Required: No Accompanied by: Daughter Allergies hydrochlorothiazide Allergy (Unknown, Verified 01/18/24 09:58) Electrolyte abnormality oxycodone [OXYCODONE] Allergy (Unknown, Verified 01/18/24 09:58) VOMITTING,CONFUSION amlodipine Adverse Reaction (Intermediate, Verified 01/18/24 09:58) leg swelling lisinopril Adverse Reaction (Intermediate, Verified 01/18/24 09:58) cough losartan Adverse Reaction (Intermediate, Verified 01/18/24 09:58) hyponatremia HPI Comments Details: 88-year-old female with hypertension and H/O hyponatremia. Her BP has been high and has been started on metoprolol. She recently had CVA and later AMS, from which she has improved. She was accompanied by her daughter. She does not have any urinary symptoms now. Her Na has been stable. She is not taking any oral urea or salt tablets. She has no SOB, weakness, edema. Her recent sodium has been stable [facility] Medical History Cerebral infarction Left leg DVT Upper respiratory infection COVID-19 virus infection Burning with urination Buttock pain Status post fall Dog bite of right arm Adult general medical exam Screening for diabetes mellitus Impacted cerumen of both ears Facial lesion Overweight (BMI 25.0-29.9) Hip osteoarthritis T12 vertebral fracture Reactive airways dysfunction syndrome Pneumonia Cholelithiasis CVA (cerebral vascular accident) Obesity (BMI 30-39.9) Hypercholesterolemia Vitamin D deficiency Hypothyroid Seizure disorder Anxiety Gout GERD (gastroesophageal reflux disease) Psoriatic arthritis Hypertension Surgical History History of Mohs surgery for squamous cell carcinoma of skin History of cataract surgery History of colonoscopy History of knee replacement procedure of right knee History of left knee replacement Family History Father No problems noted. Mother Acute CVA (cerebrovascular accident) Diabetes Brother Cancer Daughter History of nephrectomy Son Heart disease Social History Household Members: Family Household Members Other:: Daughter (Katie) and son-in-law Housing: House Alcohol intake: never Patient Tobacco Use Status: Never used Tobacco Tobacco use type: Cigarette e-Cigarette/Vaping Use: Never Used Second Hand Smoke Exposure: No Advance Directives Date on File: 12/04/23 service: No Current occupational status: retired Cognitive needs: No Hearing needs: Yes (hearing aides) Vision needs: No Review of Systems Const All systems reviewed & are unremarkable except as noted in HPI and below Physical Exam Vital Signs: Last Vital Signs Pulse 82 01/18/24 09:55 BP 156/74 H 01/18/24 09:55 Pulse Ox 97 01/18/24 09:55 Oxygen Delivery Method Room Air 01/18/24 09:55 BMI result Body Mass Index 26.4 Const General: comfortable and no acute distress Orientation/consciousness: patient oriented x3 HEENT Head: Yes normocephalic Mouth: Normal oral and palatal mucosa present Eyes EOM: EOMs intact bilaterally Neck Neck: Yes supple Resp Auscultation: clear to auscultation bilaterally Cardio Jugular venous distension: no JVD Rate: regular rate GI Palpation (GI): Soft to palpation Auscultation: normal bowel sounds General: Yes no CVA tenderness Back/Spine/Pelvis Back: no CVA tenderness Skin General skin exam: no rashes or lesions noted Neuro General: patient oriented x3 and moves all extremities Extrem General: Yes no pedal edema Results Reviewed Nephrology Results: Hgb 13.6 g/dl (12.0-16.0) 12/08/23 WBC 8.0 X10*3/uL (4.8-10.8) 12/08/23 Plt Count 161 X10*3/uL (160-400) 12/08/23 Sodium 133 mmol/L (135-145) L 12/09/23 Potassium 3.5 mmol/L (3.3-5.1) 12/09/23 Chloride 102 mmol/L (96-108) 12/09/23 Carbon Dioxide 23 mmol/L (22-29) 12/09/23 BUN 6 mg/dL (9-16) L 12/09/23 Creatinine 0.68 mg/dL (0.5-1.4) 12/09/23 Calcium 8.9 mg/dL (8.4-10.2) 12/09/23 Urine Protein Negative mg/dL (Neg-Trace) 01/02/24 Assessment & Plan Assessment & Plan (1) Acute hyponatremia: Code(s): E87.1 - Hypo-osmolality and hyponatremia Category: Medical (2) Hypertension: Code(s): I10 - Essential (primary) hypertension Category: Medical Qualifiers: Hypertension type: primary hypertension Qualified Code(s): I10 - Essential (primary) hypertension Plan Dulce had a euvolemic hyponatremia. She had mental status changes which is resolved. Her weakness and mentation is back to baseline. She does not taking excessive amount of free water. Her serum sodium is normal now. She has been started on Metoprolol. Her renal functions are at baseline. She needs to ma intain fluid restriction. I did not make any medication changes today. Follow-up blood work ordered. Follow up given Orders: Orders Blood Urea Nitrogen 6 Months I10 - Essential (primary) hypertension Creatinine 6 Months I10 - Essential (primary) hypertension Electrolytes 6 Months I10 - Essential (primary) hypertension Coding Level of Care Code Est Pt Level 4 (42145) Diagnoses Acute hyponatremia E87.1 Primary hypertension I10 Hypertension type: primary hypertension
== END 2024-01-18 10:27 | disposition home or self-care (01) ==
PROVIDERS: PCP Internal Medicine; Visit Provider Internal Medicine Nephrology
DX: E87.1 Hypo-osmolality and hyponatremia (principal); I10 Essential (primary) hypertension
CPT/HCPCS: 99214

== ENCOUNTER → 2024-01-18 09:54 | Outpatient (BNVA) | payer MEDICARE, SELFPAY | PROVIDERS: PCP Internal Medicine; Visit Provider Internal Medicine Nephrology | DX: E87.1 Hypo-osmolality and hyponatremia (principal); I10 Essential (primary) hypertension | CPT/HCPCS: 99212 ==

== ENCOUNTER 2024-01-23 10:26 | Outpatient (AMB) | payer MEDICARE, SELFPAY ==
[2024-01-23 10:40] VITALS: BP 122/78; PULSE 84; O2SAT 97; BMI 26.1
--- NOTE | 2024-01-23 10:40 | AM.OFFVISMDC ---
Intake Vital Signs 01/23/24 10:40 Height 5 ft Weight 133 lb 9.602 oz BMI 26.1 BP 122/78 Blood Pressure Location Lt brachial Position Sitting Pulse 84 Pulse Source Pulse Oximeter Pulse Oximetry (%) 97 Oxygen Delivery Method Room Air Intake Visit Reasons: SWV G0439 Allergies hydrochlorothiazide Allergy (Unknown, Verified 01/23/24 10:41) Electrolyte abnormality oxycodone [OXYCODONE] Allergy (Unknown, Verified 01/23/24 10:41) VOMITTING,CONFUSION amlodipine Adverse Reaction (Intermediate, Verified 01/23/24 10:41) leg swelling lisinopril Adverse Reaction (Intermediate, Verified 01/23/24 10:41) cough losartan Adverse Reaction (Intermediate, Verified 01/23/24 10:41) hyponatremia Medication List - Last Reconciled 01/23/24 by Marie Villanueva MD [low height rollator As directed] acetaminophen 1,000 mg PO DAILY PRN aspirin 81 mg PO DAILY levetiracetam 1,000 mg PO BID levothyroxine 88 mcg PO DAILY@0600 90 days loratadine 10 mg PO DAILY lorazepam 0.5 mg PO DAILY@1700 magnesium oxide 400 mg PO DAILY metoprolol succinate ER 25 mg PO DAILY mirabegron ER (Myrbetriq) 25 mg PO DAILY omeprazole 20 mg PO BID HPI SWV G0439 HPI Details 88-year-old overweight female with a history of cognitive impairment patient has hypertension GERD gout seizure disorder hypothyroidism hypercholesterolemia lumbar degenerative disc disease generalized anxiety disorder TIA hypertension coming in for an annual well visit last seen in December 2023. 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 No further workup advised advised speech therapy. Nephrology Dr. Orosco, gastroenterology Dr. Fletcher Neurology Dr. Stewart. [facility] Medical History Cerebral infarction Left leg DVT Upper respiratory infection COVID-19 virus infection Burning with urination Buttock pain Status post fall Dog bite of right arm Adult general medical exam Screening for diabetes mellitus Impacted cerumen of both ears Facial lesion Overweight (BMI 25.0-29.9) Hip osteoarthritis T12 vertebral fracture Reactive airways dysfunction syndrome Pneumonia Cholelithiasis CVA (cerebral vascular accident) Obesity (BMI 30-39.9) Hypercholesterolemia Vitamin D deficiency Hypothyroid Seizure disorder Anxiety Gout GERD (gastroesophageal reflux disease) Psoriatic arthritis Hypertension Surgical History History of Mohs surgery for squamous cell carcinoma of skin History of cataract surgery History of colonoscopy History of knee replacement procedure of right knee History of left knee replacement Family History Father No problems noted. Mother Acute CVA (cerebrovascular accident) Diabetes Brother Cancer Daughter History of nephrectomy Son Heart disease Social History Household Members: Family Household Members Other:: Daughter (Katie) and son-in-law Housing: House Alcohol intake: never Patient Tobacco Use Status: Never used Tobacco Tobacco use type: Cigarette e-Cigarette/Vaping Use: Never Used Second Hand Smoke Exposure: No Advance Directives Date on File: 12/04/23 service: No Current occupational status: retired Cognitive needs: No Hearing needs: Yes (hearing aides) Vision needs: No Questionnaire Medicare Wellness Checkup What is your age?: 80 or older What gender do you identify with?: female During the past 4 weeks, how much have you been bothered by emotional problems such as feeling anxious, depressed, irritable, sad or downhearted, and blue?: slightly During the past 4 weeks, has your physical & emotional health limited your social activities with family, friends, neighbors, or groups?: moderately During the past 4 weeks, how much bodily pain have you generally had?: moderate pain During the past 4 weeks, was someone available to help you if you needed & wanted help?: yes, a little During the past 4 weeks, what was the hardest physical activity you could do for at least 2 minutes?: very light Can you get to places out of walking distance without help? (For eg., can you travel alone on buses, taxis or drive your car?): No Can you go shopping for groceries or clothes without someone's help?: No Can you prepare your own meals?: Yes Can you do your housework without help?: No Because of any health problems, do you need the help of another person with your personal care needs such as eating, bathing, dressing or getting around the house?: Yes Can you handle your own money without help?: Yes During the past 4 weeks, how would you rate your health in general?: fair During the past 4 weeks how have things been going for you?: pretty bad Are you having difficulties driving your car?: not applicable, I don't use a car Do you always fasten your seat belt when you are in a car?: yes, usually During past 4 weeks, have you been bothered by the following: never: Falling or dizzy when standing up, Sexual problems?, Trouble eating well? and Teeth or denture problems?, seldom: Problems using the telephone? and sometimes: Tiredness or fatigue? Have you fallen 2 or more times in the past year?: No Are you afraid of falling?: Yes Are you a smoker?: no During the past 4 weeks, how many drinks of wine, beer, or other alcoholic beverages did you have?: no alcohol at all Do you exercise for about 20 minutes 3 or more times a week?: no, I usually do not exercise this much How often do you have trouble taking medicines the way you have been told to take them?: I always take medicine as prescribed PHQ-9 Over the last 2 weeks, how often have you been bothered by any of the following problems? 1. Little interest or pleasure in doing things: more than half the days 2. Feeling down, depressed, or hopeless: more than half the days 3. Trouble falling or staying asleep, or sleeping too much: not at all 4. Feeling tired or having little energy: several days 5. Poor appetite or overeating: not at all 6. Feeling bad about yourself - or that you are a failure or have let yourself or your family down: not at all 7. Trouble concentrating on things, such as reading the newspaper or watching television: several days 8. Moving or speaking so slowly that other people could have noticed. Or the opposite - being so fidgety or restless that you have been moving around a lot more than usual: several days 9. Thoughts that you would be better off or of hurting yourself in some way: not at all Total score: 7 Depression Screening Interpretation: Positive Depression Screening Done: Yes 60765 - PHQ-9 Billing: Yes Source: Developed by Drs. Satish Summers, Radha Honeycutt, Tani Gonzales and colleagues, with an educational milton from [email or web address]. Review of Systems Const Denies poor appetite and Denies weakness Eyes Denies no additional complaints ENT Reports Normal hearing present, Denies dizziness, Denies nasal congestion, Denies tinnitus and Denies sore throat Card Denies chest pain, Denies syncope, Denies rapid heart rate and Denies dyspnea Resp Denies cough and Denies dyspnea GI Denies change in stool character, Reports constipation, Denies diarrhea, Denies nausea and Denies vomiting Denies urinary frequency, Denies difficulty voiding and Denies dysuria Neuro Reports Normal hearing present, Denies confusion, Denies dizziness, Denies syncope and Denies weakness Psych Denies confusion Physical Exam Vital Signs: Last Vital Signs Pulse 84 01/23/24 10:40 BP 122/78 01/23/24 10:40 Pulse Ox 97 01/23/24 10:40 Oxygen Delivery Method Room Air 01/23/24 10:40 BMI result Body Mass Index 26.1 Const General: No confusion Orientation/consciousness: No confusion HEENT Head: Yes normocephalic Ears: external ears normal and TM's normal bilaterally Face and sinus: Yes normal facial exam Mouth: moist mucous membranes Throat: Yes tonsils normal Eyes Conjunctivae: conjunctivae normal Pupils: Equal, round and reactive pupils present and Pupil accommodation reflex normal Direct Ophthalmoscopy: normal light reflex Neck Neck: No lymphadenopathy Thyroid: Thyroid normal Chest Chest palpation & inspection: normal inspection of the chest Resp Effort & Inspection: normal respiratory effort and no audible wheezes Auscultation: clear to auscultation bilaterally, no crackles, no wheezes and lung sounds not diminished Cardio Rate: regular rate Rhythm: regular rhythm Peripheral pulses: radial pulses present and dorsalis pedis present GI Other: decline rectal exam Palpation (GI): no masses Auscultation: normal bowel sounds and normoactive bowel sounds Rectal Exam - Female: deferred Skin General skin exam: no rashes or lesions noted Rashes: no rashes Neuro General: No confusion Cranial nerves: Yes Equal, round and reactive pupils present and Yes Normal hearing present Cognition (Neuro): normal cognition Gait exam (Neuro): Normal gait present Motor exam (neuro): 5/5 motor strength present throughout Deep tendon reflexes (DTR's): Right brachioradialis reflex intensity grade: 2+, Left brachioradialis reflex intensity grade: 2+, Right patellar reflex intensity grade: 2+ and Left patellar reflex intensity grade: 2+ Extrem General: No edema Office Procedures Flu Questionnaire Does the patient have a severe egg allergy?: No Does the patient have severe life threatening allergies?: No Does the patient have a fever or illness today?: No Has the patient ever had Guillain-[place] Syndrome?: No Has the patient ever had any past reaction to a flu shot?: No Immunizations Fluarix Triv [id number] (PF) 45 mcg (15 mcg x 3)/0.5 mL IM syringe Performing Provider: Marie Villanueva MD [facility] [place] [facility] Administered by: Roxann Zhong CMA on 01/23/24 10:58 Dose Route Admin Location Dispensed Lot Number Expiration Date NDC Insurance Writer 0.5 mL IM Left Deltoid 0.5 mL [id number] 09/29/24 [id number] [employer] VIS Given Date VIS Provided VIS Publication Date 01/23/24 Single Vaccine 20 Eligibility Eligibility Date Funding Source [place] [facility] [place] 01/23/24 Private Assessment & Plan Assessment & Plan (1) Medicare annual wellness visit, subsequent: Code(s): Z00.00 - Encounter for general adult medical examination without abnormal findings Plan: Patient is advised to eat healthy, keep well hydrated, keep active and have adequate sleep. (2) Hypertension: Code(s): I10 - Essential (primary) hypertension Qualifiers: Hypertension type: primary hypertension Qualified Code(s): I10 - Essential (primary) hypertension Plan: Continue with blood pressure medication. Decrease salt intake and exercise on metoprolol 25 mg once a day (3) GERD (gastroesophageal reflux disease): Comment: EGD Dr. Mireles April 2018 erosive esophagitis Code(s): K21.9 - Gastro-esophageal reflux disease without esophagitis Qualifiers: Esophagitis presence: without esophagitis Qualified Code(s): K21.9 - Gastro-esophageal reflux disease without esophagitis Plan: Avoid the foods that causes that usually spicy foods, tomato products, juices, coffee, soda and foods that your sensitive to. After eating do not lie down, allow 3-4 hours before in lie down. And keep the head of bed above 30 degrees to avoid the acid from going up. (4) Seizure disorder: Comment: 2012 partial complex Code(s): G40.909 - Epilepsy, unspecified, not intractable, without status epilepticus Plan: Continue with Keppra (5) Hypothyroid: Code(s): E03.9 - Hypothyroidism, unspecified Qualifiers: Hypothyroidism type: acquired Qualified Code(s): E03.9 - Hypothyroidism, unspecified Plan: Continue with thyroid medication (6) Hypercholesterolemia: Code(s): E78.00 - Pure hypercholesterolemia, unspecified Plan: Avoid fried foods, chicken skin, eggs, butter margarine, pastries and meat. Be it pork or beef they have a lot of cholesterol LDL goal of less than 70 and triglyceride of less than 150. December 24 and last tested on atorvastatin 80 mg once a (7) Generalized anxiety disorder: Code(s): F41.1 - Generalized anxiety disorder Plan: Continue with present medication (8) Hyponatremia: Code(s): E87.1 - Hypo-osmolality and hyponatremia Plan: Patient has met with Nephrology and continuing to monitor sodium, fluid restrict (9) Dementia: Code(s): F03.90 - Unspecified dementia, unspecified severity, without behavioral disturbance, psychotic disturbance, mood disturbance, and anxiety Qualifiers: Dementia type: vascular dementia Dementia severity: moderate Dementia behavioral or psychological symptom: without behavioral, psychotic, or mood disturbance or anxiety Qualified Code(s): F01.B0 - Vascular dementia, moderate, without behavioral disturbance, psychotic disturbance, mood disturbance, and anxiety Plan: Supportive treatment Orders: Orders Influenza [id number] Immunization Today Z23 - Encounter for immunization Quality Reporting (2019) Depression/Bipolar (159/160/161/177) PHQ-9: Total score: 7 Coding Level of Care Code Medicare Subsequent (G0439) Diagnoses Medicare annual wellness visit, subsequent Z00.00 Primary hypertension I10 Hypertension type: primary hypertension Gastroesophageal reflux disease without esophagitis K21.9 Esophagitis presence: without esophagitis Seizure disorder G40.909 Acquired hypothyroidism E03.9 Hypothyroidism type: acquired Hypercholesterolemia E78.00 Generalized anxiety disorder F41.1 Hyponatremia E87.1 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
== END 2024-01-23 11:39 | disposition home or self-care (01) ==
PROVIDERS: PCP Internal Medicine; Visit Provider Internal Medicine
DX: Z00.00 Encounter for general adult medical examination without abnormal findings (principal); F01.B0 Vascular dementia, moderate, without behavioral disturbance, psychotic disturbance, mood disturbance, and anxiety; G40.909 Epilepsy, unspecified, not intractable, without status epilepticus; I10 Essential (primary) hypertension; K21.9 Gastro-esophageal reflux disease without esophagitis; E03.9 Hypothyroidism, unspecified; E78.00 Pure hypercholesterolemia, unspecified; F41.1 Generalized anxiety disorder; E87.1 Hypo-osmolality and hyponatremia

== ENCOUNTER → 2024-01-23 10:26 | Outpatient (BNVA) | payer MEDICARE, SELFPAY | PROVIDERS: PCP Internal Medicine; Visit Provider Internal Medicine | DX: Z00.00 Encounter for general adult medical examination without abnormal findings (principal); I10 Essential (primary) hypertension; K21.9 Gastro-esophageal reflux disease without esophagitis; G40.909 Epilepsy, unspecified, not intractable, without status epilepticus; E03.9 Hypothyroidism, unspecified; E78.00 Pure hypercholesterolemia, unspecified; F41.1 Generalized anxiety disorder; E87.1 Hypo-osmolality and hyponatremia; F01.B0 Vascular dementia, moderate, without behavioral disturbance, psychotic disturbance, mood disturbance, and anxiety; Z79.899 Other long term (current) drug therapy; Z23 Encounter for immunization | CPT/HCPCS: 90471; 90656 ==

== ENCOUNTER 2024-03-12 12:48 | Outpatient (RCR) | payer MEDICARE, SELFPAY ==
--- NOTE | 2024-03-24 12:31 | MHC.SP.ADU ---
Referring provider: Dr. Villanueva Reason for Referral: Assess Language and Cognition Type of Treatment: 30627 Standardized Cognitive Performance Testing, per hour Date of Plan of Treatment: 03/12/24 Onset of Symptoms/Illness: 12/03/23 Date Treatment Started: 03/12/24 Medical Diagnosis: Encephalopathy, Dementia Primary Speech Language Diagnosis: I69.911 Memory deficit Secondary Speech Language Diagnosis: R41.841 Cognitive communication disorder History Ankita Dorado is an 88 year old woman who was referred for a language and cognitive evaluation by her primary care provider, Dr. Villanueva. She was accompanied to the evaluation by her son, Paul. In the past six months, Ankita has had multiple admissions to [facility], in most instances due to a suspected CVA. During admission in August of this year, diagnostic imaging did identify a punctate acute infarct in the deep right frontoparietal white matter; moderate chronic microangiopathy and mild generalized cerebral volume loss and severe multifocal arterial stenosis. Ankita again was admitted in December of this year with a question of a CVA, but during that admission, there was no evidence of a stroke on imaging, and son reported that a UTI was identified and likely the source of her change of mental status (encephalopathy). Ankita's medical record also indicates that she had a TIA in 2019, and that she has a history of seizure disorder. Paul reported that Ankita lives with his sister and brother in law in a private home in [place]. Family have noted her cognitive decline over the past six months, as well as episodes of marked decline in her ability to communicate, which was at its worse during her admission in December of this year. At that time, Ankita started to hum and use a sing-song vocalization, which was then followed by her being able to express her self more consistently with words. Her singing behavior has continued, though, and she does it almost constantly at home, particularly when not engaged in communication with others and doing daily tasks around the house. Paul reported she was seen by Dr. Sawant in December, who found this behavior puzzling, but did not think it diagnostically significant, and reported to the family that her issues were related to cognitive decline/aging. Ankita newly began attending an elder care day program in [place] twice weekly, which she reported that she was enjoying so far. She reported that her , who has since passed, also attended this program after he was disabled from a stroke, and also found it enjoyable and helpful. Ankita noted that when at the program, she has been able to suppress her singing behavior in social contexts, something that she has not been able to do at home. She also reported meeting and interacting with new people and winning at [employer] have been the highlights for her so far. 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 Facial droop Cerebral infarction Left leg DVT Upper respiratory infection COVID-19 virus infection Dog bite of right arm Hip osteoarthritis T12 vertebral fracture Reactive airways dysfunction syndrome Pneumonia Cholelithiasis CVA (cerebral vascular accident) Obesity (BMI 30-39.9) Hypercholesterolemia Vitamin D deficiency Hypothyroid Seizure disorder Anxiety Gout GERD (gastroesophageal reflux disease) Psoriatic arthritis Hypertension Medication List: Please see chart Recent Hospitalizations: Yes Respiratory Needs: Room Air Patient Orientation: Alert & Oriented x 4 Social History: Employment Status: Retired Highest level of education obtained: Completed Bachelor's Current Living Situation: Lives with daughter and son in law in a private residence. Assistive Devices in use: Walker Past Speech Language Therapy: Ankita has been seen to assess her swallow while she was admitted this summer and past fall to [facility], secondary to ?CVA. On both occasions, her swallow function was WFL. Reported Speech, Language, Cognition difficulties: Memory Speaking Comments: Shayy presents today with mild issues related to word finding and recall of verbal/language information. Quality of Life: Good Patient Stated Goal of Speech-Language Therapy: Assess and determine goals for intervention. Assessment Speech Production: Aphasic: Nonfluent Clinical Impression: Impaired Observations: On confrontation tasks, Ankita demonstrates difficulty with word retrieval of specific labels. This is sometimes evident in her conversational speech which can lead to some confusion in her verbal communication. She otherwise produces clear and articulate speech. Informal Voice Assessment: Voice Loudness: Normal Voice Nasal Resonance: Normal Voice Oral Resonance: Normal Voice Phonatory-based Quality: Normal Voice Pitch: Normal Voice Other Observations: Clinical Impression: Intact Clinicial Observations: Tests of Speech & Lang Adults: BDAE Clinical Impression: Impaired Observations: Subtests of the [place] Diagnostic Aphasia Evaluation, Short Form, and the [place] Naming Test (Short Form) were given as a part of this assessment. On the short version of the BNT, Ankita was able to accurately label 6 out of the fifteen items. On nine items, she struggled to come up with the word, even when given contextual, initial sound and initial letter cues, ultimately requiring direct cuing for the word. On these items she demonstrated recognition but difficulty retrieving the word (they were not unknown vocabulary words for her). On the narrative subtest ( [employer] picture), Ankita produced clear, cohesive, well constructed descriptive sentences for this task, that were fluently produced with no hesitancies or evidence of word finding difficulty. On receptive language subtests, Ankita demonstrated good abilities with responsive naming to general information questions, following up to three step directions, and comprehension of complex ideational materal Tests of Cognition: RBANS Clinical Impression: Impaired Observations: The Repeatable Battery for the Assessment of Neuropsychological Status (RBANS) was used as a screening instrument to briefly assess Ankita?s cognitive skills. The RBANS-(Updated Form B) briefly assesses aspects of cognitive memory, language, and attention skills. The RBANS is considered a screening battery for cognitive function and is repeatable for the purpose of evaluating any changes in function. It is intended for use with adolescents and adults, ages 12 to 89 years. Composite domains assessed in this test are: Immediate Memory, Visuospatial/Constructional, Language, Attention, and Delayed Memory. Interpretation of test performance is based on normative data on individuals between ages 60-60. Ankita?s performance is summarized below: IMMEDIATE MEMORY: This domain assesses the individual's ability to remember information immediately after it is presented. For the ?List Learning? task, Ankita was read a list of 10 words and asked to repeat back as many words as she could. She was then read the same list four times. Initially, Ankita recalled only three of the words from the list. On subsequent trials, she consistently recalled more items from the list, demonstrating learning, and ultimately demonstrating a high average score on this subtest. On the ?Story Memory? task, a brief story is read by the examiner two times, with the subject required to repeat back as much as they remember each time.. Ankita recalled a good amount of detail from the story on both trials with some improvement on the second trial. The score on this subtest also fell in the high average range. Both scores, cumulatively, were high average, indicating good skills in short term memory for auditory information. List Learning Total Score: 20 Scaled Score: 12 Interpretation: High Average Story Memory Total Score: 10 Scaled Score: 12 Interpretation: High Average Immediate Memory Index Score: 100 Percentile: .50 Interpretation: Average VISUOSPATIAL/CONSTRUCTIONAL: This domain assesses the individual's ability to perceive spatial relations and to construct a spatially accurate copy of a drawing. During the Figure Copy task, Iza was given an example of a specific figure to copy onto a piece of paper. Individuals are scored on both the drawing accuracy and placement of 10 different target items. Ankita?s drawing was close to the example drawing, though she omitted two elements entirely and had one error of placemnt, demonstrating a low average score. Ankita on the other hand demonstrated quick learn and very strong skills overall on the Line Orientation task, in which an individual is asked to transpose two line segments of an angle to a compass diagram above it, to label each segment.. Her score on this test fell in the above average range. The scores combined for this domain resulted in an average score overall. Figure Copy Total Score: 14 Scaled Score: 8 Interpretation: Low Average Line Orientation Total Score: 17 Percentile Group: 51-75 Interpretation: High Average Visuospatial/Constructional Index Score: 89 Percentile: 23 Interpretation: Average LANGUAGE: This domain assesses the individual's ability to respond verbally to either naming or retrieving learned material. Ankita was asked to label various line drawings in a responsive naming task and then asked to name as many fruits and vegetables as he could in one minute in a Semantic Fluency task. Ankita accurately named 8 of 10 drawings, She then labeled only 7 fruits and vegetables in one minute, evidencing significant struggle on this task, demonstrating a below average score on this subtest, and a below average score for this domain overall.. Picture Naming Total Score: 8 Percentile Group: 3-9 Interpretation: Below average Semantic Fluency Total Score: 7 Scaled Score: > ,2 Interpretation: Below Average Language Index Score: 60 Percentile: .4 Interpretation: Below Average ATTENTION: This domain assesses the individual's capacity to remember and manipulate both visually and orally presented information in short-term memory storage Iza was read aloud strings of numbers of varying lengths then asked to recall the numbers. Ankita accurately recalled strings of numbers up to 6 digits with no difficulty, but then had difficulty with 7-8 digits, overall demonstrating an high average score. In the coding subtest, Ankita was asked to write numbers to their matching symbols as quickly and efficiently as possible within 90 seconds. Iza worked carefully and accurately through this task, marking 30 symbols in allotted time, demonstrating an average score. For the overall ?Attention? domain score, Iza fell in the high average range for her age group. Digit Span Total Score: 13 Scaled Score: 12 Interpretation: High Average Coding Total Score: 30 Scaled Score: 10 Interpretation: Average Attention Index Score: 109 Percentile: 73 Interpretation: High Average DELAYED MEMORY: This domain assesses the individual's anterograde memory capacity. Low scores indicate difficulties with recognition and retrieval of information from long-term memory stores. Ankita recalled none of the ten words on the wordlist that was presented to her earlier in the testing, demonstrating a below average score on this task. However, when given a recognition task regarding words on the list (i.e. ?Was apple on the list??), Ankita answered these yes/no questions with very good accuracy demonstrating an average score on this subtest. On recalling the story that was read to her at the beginning of the assessment, Ankita recalled only 4 out of 12 root details of the story read to her earlier, demonstrating an low average score on this subtest. Finally, when asked to recall the figure she elle with relatively good accuracy at the beginning of the test, Ankita was able to recall with accuracy the elements of her drawing of the picture, adding one element she had missed earlier, yielding a high average score. In this domain overall, Ankita demonstrated average ability for her age group. List Recall Total Score: 0 Percentile Group: >.2 Interpretation: Below Average List Recognition Total Score: 19 Percentile Group: 25-50 Interpretation: Average Story Recall Total Score: 4 Scaled Score: 8 Interpretation: Low Average Figure Recall Total Score: 15 Scaled Score: 12 Interpretation: High Average Delayed Memory Index Score: 98 Percentile: 45 Interpretation: Average The Total Test Score on the RBANS represents a summation of the individual index scores across five cognitive domains, providing an overall measure of a person's cognitive functioning, with a higher score indicating better cognitive performance; a mean score of 100 is considered average, and a standard deviation of 15 is used to interpret the severity of any cognitive impairment based on the individual's score relative to the norm. On the total test, Ankita demonstrated a low average score overall. TOTAL TEST: Sum of Index Scores: 459 Total Scale Score: 88 Percentile: 21 Interpretation: Low Average Impressions and Recommendations Summary: Ankita Dorado, who this past year has had a series of hospitalizations that had a general impact on her language and cognitive function, presents today with a mild expressive aphasia (word finding/anomia), and mild general impairment of her memory for language. She demonstrates good general skills with her receptive understanding of language, her short term memory, visual memory and processing and and remote recall of information, and is generally doing well with her overall cognitive abilities. Her difficulties with language, however, may lead to frustration in her ability to communicate clearly with others, and some generalized confusion during day to day communicative interactions. Ankita did evidence during this assessment her spontaneous sing song behavior, which she reportedly engages with often during independent activities and down time at home, and sometimes has difficulty suppressing. It is posited that this sing song or prosody behavior may have aided her in recovering her language after her last hospital stay in December, where family reported she had a total loss of language. It is unclear, however, the impulse for this lingering, somewhat perseverative behavior. Given observations from her son, who was at times surprised at how well she performed on some items, she may have also risen to the occasion for this testing, and her general cognitive function should continue to be monitored. However, overall today, Ankita demonstrated many strength, which is remarkable given her advanced age and neurological status. It is recommended that Ankita electively return for a period of Language and Cognitive therapy, to improve her word finding and general communication skills. Further testing/monitoring of cognitive abilities is also recommended and may yield some additional goals for therapy. Therapy is recommended for a period of 6-8 weeks, once weekly for forty five minutes. Impact on Daily Function/Activity Limitations: Daily Activities: Mild Interpersonal Interactions: Mild Education: n/a Employment: n/a Community: Mild Prognosis for Improvement: Good Recommendation for Speech Therapy: Outpatient Speech Therapy Frequency/Duration: 1 X weekly for 45 minutes Date Range for Service Requested: 6-8 Weeks Time to Reassess: PRN Senior Living Goals: Ankita will communicate fluently and cohesively in conversational communication in four out of five contexts. Short Term Goals: Goal # : 1.1 1.1: When given a closed set category (list of items, similar terms, similar functions), Ankita will retrieve the category word with 80% accuracy 1.2 When given an open set category (category name), Ankita will used strategies to name at least 6 items w/in the category w/ 80% accuracy. Goal Status: Goal# : 2.1 When given a list of features or qualities, Ankita will identify the target word or term with 80% accuracy 2.2 When given a target term, Ankita will describe or identify function/use with 80% accuracy 2.3: When struggling to retrieve a specific word, Ankita will describe or generally define the word using circumlocution strategy wit 80% accuracy. Goal Status: Goal # : 3.1 Ankita will fluently and coherently engage in four to five turns on a conversational topic, as demonstrated in four out of five contexts 3.2 Ankita will self monitor for extraneous noises (sing/song) when engaged in social communication in four out of five contexts Recommended Referrals to be Discussed with Primary Care Provider: Patient Education: Completed: Yes Patient/Caregiver Education: Described Results of Evaluation Patient expressed understanding of evaluation Patient agrees with goals and treatment plan Comments/Barriers to Learning: Scooping Machine Tender Clinican/Clinical Fellow: No Supervisory Statement: N/A Speech Language Pathologist: Rafaela Todd M.A., CCC-INDIRECT FIRE INFANTRYMAN
== END 2024-06-23 13:46 | disposition home or self-care (01) ==
LOC: HO.SH 12:48
PROVIDERS: Visit Provider Internal Medicine
DX: I63.9 Cerebral infarction, unspecified (principal)
CPT/HCPCS: 96125

== ENCOUNTER 2024-03-15 10:03 | Emergency (ER) | payer MEDICARE, SELFPAY ==
--- NOTE | ~2024-03-15 | CT_ITS ---
EXAMINATION: CT HEAD WITHOUT CONTRAST CLINICAL INFORMATION: Change in mental status COMPARISON: None available. TECHNIQUE: Contiguous axial imaging was performed from the skull base to vertex without intravenous administration of contrast. This CT examination was performed using dose optimization techniques as appropriate, variously including the following: *Automated exposure control *Adjustment of mA and/or kV according to patient size (this includes techniques or standardized protocols for targeted exams where dose is matched to indication/reason for exam; i.e. extremities or head) *Use of iterative reconstruction technique DLP: 581 mGy-cm RESULTS: There is no evidence of acute intracranial hemorrhage, acute large vessel infarct, midline shift or mass effect. The parks-white differentiation is preserved. There are patchy periventricular and subcortical white matter changes, which are nonspecific, but likely represent chronic microangiopathic change in a patient of this age. The ventricles and sulci are within normal limits in size and configuration. There is no evidence of hydrocephalus. There are no extraaxial collections. Osseous structures are intact. Paranasal sinuses and mastoid air cells are well aerated. CT/CT head/brain wo IV con IMPRESSION: No acute intracranial abnormality. Electronically signed by: Irene Saldaña MD 03/15/2024 01:02 PM [facility]
--- NOTE | ~2024-03-15 | XR_ITS ---
EXAMINATION: XR CHEST CLINICAL INFORMATION: weakness COMPARISON: Chest x-ray on 02/01/2023 TECHNIQUE: Frontal view of the chest was obtained. FINDINGS: The cardiac silhouette is normal. There is mild diffuse bronchial wall thickening. There are no areas of consolidation. There are no pleural effusions or pneumothoraces. The bones and soft tissues are unremarkable for the patient's age. XR/XR chest 1V IMPRESSION: Bronchial wall thickening may be infectious and/or inflammatory in etiology. Electronically signed by: Irene Saldaña MD 03/15/2024 01:01 PM [facility]
[2024-03-15 10:09] VITALS: BP 122/65; PULSE 72; O2SAT 98
[2024-03-15 10:21] VITALS: BP 164/80; PULSE 68; RESP 16; TEMP 36.4; O2SAT 100; BMI 26.5
[2024-03-15 10:25] VITALS: RESP 16
--- NOTE | 2024-03-15 10:31 | ECG_ITS ---
Test Reason : WEAKNESS Blood Pressure : / mmHG Vent. Rate : 068 BPM Atrial Rate : 068 BPM P-R Int : 212 ms QRS Dur : 096 ms QT Int : 400 ms P-R-T Axes : 006 -27 009 degrees QTc Int : 425 ms Sinus rhythm with 1st degree A-V block Incomplete right bundle branch block Minimal voltage criteria for LVH, may be normal variant ( R in aVL ) Borderline ECG When compared with ECG of 08-DEC-2023 19:24, T wave amplitude has decreased in Anterior leads Referred By: Leyla Peguero Electronically Signed By:HOOD ZHAO MD
--- NOTE | 2024-03-15 10:32 | ED_ITS ---
HPI - General Adult General Chief complaint: General Medical Stated complaint: ?stroke Time Seen by Provider: 03/15/24 10:08 Source: patient and old records reviewed Mode of arrival: ambulatory Limitations: no limitations History of Present Illness ED Provider: ROSANA THOMAS narrative: 88 yo female from home with dementia, hyponatremia, TIA, receptive and expressive aphasia, HTN, CVA, HLD, seizure, anxiety, GERD, hypothyroidism here with reported increase in AMS and ?L sided weakness. Last known well at 9pm. No deficits on arrival other than her baseline confusion/speech pathology. The patient is smiling and laughing. MD complaint: weakness Onset (ago): day(s) (yesterday last known well) Radiation: non-radiation Severity: moderate Relieving factors: none Exacerbating factors: none Associated symptoms: denies other symptoms Treatments prior to arrival: none Related Data Home Medications ?Medication ?Instructions ?Recorded ?Confirmed acetaminophen 500 mg tablet 1,000 mg PO DAILY PRN Pain 12/03/23 01/23/24 lorazepam 1 mg tablet 0.5 mg PO DAILY@1700 anxiety 12/03/23 01/23/24 Previous Rx's ?Medication ?Instructions ?Recorded omeprazole 20 mg capsule,delayed 20 mg PO BID #180 caps 08/29/23 release aspirin 81 mg tablet,delayed 81 mg PO DAILY #30 tabs 10/01/23 release magnesium oxide 400 mg PO DAILY #90 caps 10/21/23 low height rollator #1 ea 10/26/23 levothyroxine 88 mcg tablet 88 mcg PO DAILY@0600 90 days #90 10/28/23 tabs loratadine 10 mg tablet 10 mg PO DAILY #30 tabs 11/26/23 mirabegron 25 mg tablet,extended 25 mg PO DAILY #90 tabs 02/04/24 release 24 hr (Myrbetriq) levetiracetam 1,000 mg tablet 1,000 mg PO BID #180 tabs 02/09/24 metoprolol succinate 25 mg 25 mg PO DAILY #30 tabs 02/27/24 tablet,extended release 24 hr cefuroxime axetil 250 mg tablet 250 mg PO BID 7 days #14 tabs 03/15/24 Allergies Allergy/AdvReac Type Severity Reaction Status Date / Time hydrochlorothiazide Allergy Unknown Electrolyte Verified 03/15/24 10:24 abnormality oxycodone [OXYCODONE] Allergy Unknown VOMITTING,C Verified 03/15/24 10:24 ONFUSION amlodipine AdvReac Intermediate leg Verified 03/15/24 10:24 swelling lisinopril AdvReac Intermediate cough Verified 03/15/24 10:24 losartan AdvReac Intermediate hyponatremi Verified 03/15/24 10:24 a Review of Systems 2 Review of Systems: ROS unable to be obtained due to altered mental status PMFSH Past Medical History Attestation statement: The following information was validated with the patient. Source: old records reviewed Medical History 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 Facial droop Cerebral infarction Left leg DVT Upper respiratory infection COVID-19 virus infection Burning with urination Buttock pain Status post fall Dog bite of right arm Adult general medical exam Screening for diabetes mellitus Impacted cerumen of both ears Facial lesion Overweight (BMI 25.0-29.9) Hip osteoarthritis T12 vertebral fracture Reactive airways dysfunction syndrome Pneumonia Cholelithiasis CVA (cerebral vascular accident) Obesity (BMI 30-39.9) Hypercholesterolemia Vitamin D deficiency Hypothyroid Seizure disorder Anxiety Gout GERD (gastroesophageal reflux disease) Psoriatic arthritis Hypertension Surgical History History of Mohs surgery for squamous cell carcinoma of skin History of cataract surgery History of colonoscopy History of knee replacement procedure of right knee History of left knee replacement Family History Family History Father No problems noted. Mother Acute CVA (cerebrovascular accident) Diabetes Brother Cancer Daughter History of nephrectomy Son Heart disease Social History Social History Household Members: Family Household Members Other:: Daughter (Katie) and son-in-law Housing: House Alcohol intake: never Patient Tobacco Use Status: Never used Tobacco Tobacco use type: Cigarette Smoked in Last 30 Days: No e-Cigarette/Vaping Use: Never Used Second Hand Smoke Exposure: No Use of substances other than those prescribed or required for medical reasons: No Advance Directives: Yes Advance Directives on File: Yes Advance Directives Date on File: 12/04/23 service: No Current occupational status: retired Cognitive needs: No Hearing needs: Yes (hearing aides) Vision needs: No Physical Exam ED Vital Signs: Vital Signs - 24 hr 03/15/24 10:21 03/15/24 10:25 03/15/24 12:14 Temperature 97.6 F 97.5 F Pulse Rate 68 67 Respiratory Rate 16 16 11 L Blood Pressure 164/80 H 189/79 H Pulse Oximetry 100 99 Oxygen Delivery Method Room Air Room Air BMI result Body Mass Index 26.5 Appearance: Alert. Oriented to self. No acute distress. Eyes: Pupils equal, round and reactive to light. ENT: Pharynx normal. Neck: Normal inspection. Neck supple. CVS: Normal heart rate and rhythm. Pulses normal. Respiratory: No respiratory distress. Breath sounds normal. Abdomen: Soft and nontender. Skin: Skin warm and dry. Normal skin color. Normal skin turgor. Extremities: No lower extremity edema. No calf ttp Neuro: Oriented X 1 No motor deficit. No sensory deficit. very hard to time with speech smiling and laughing, no dysarthria Course Course Course Narrative: + UA at this time infection suspected will start on IV ceftriaxone 116pm Medical Decision Making Medical Decision Making [facility] Narrative: 88 yo female from home with dementia, hyponatremia, TIA, receptive and expressive aphasia, HTN, CVA, HLD, seizure, anxiety, GERD, hypothyroidism here with c/o weakness and change in mentation since last night at this time broad differential she has no signs of deficit that appear new on exam - will order labs, UA, CXR, CT head for ICH. Possible encephalopathy, weakness, anemia, dehydration Differential Diagnosis Differential Diagnoses: The differential diagnosis associated with the presentation includes encephalopathy, weakness, dehydration, anemia Admission/Observation Consideration of admission/observation: Escalation of care including admission/observation considered she is at her baseline patient and daughter want to go home suspect UTI daughter is aware and feels comfortable with her going home given precautions to return she has no neuro deficits Lab Data [facility] Lab Attestation statement: I reviewed the patient's lab results. 03/15/24 11:06 03/15/24 11:06 Labs: Lab Results 03/15/24 03/15/24 03/15/24 Range/Units 11:06 11:17 12:49 WBC 4.3 L (4.8-10.8) X10*3/uL RBC 3.89 L (4.20-5.50) X10*6/uL Hgb 12.1 (12.0-16.0) g/dl Hct 34.6 L (37.0-47.0) % MCV 88.9 (80.0-98.0) fL MCH 31.1 (27.0-33.0) pg MCHC 35.0 (31.0-35.0) g/dl RDW 12.1 (11.0-16.0) % Plt Count 142 L (160-400) X10*3/uL MPV 10.2 (9.4-12.3) fL Immature Gran % (Auto) 0.2 (0.0-0.4) % Neut % (Auto) 76.0 H (45-73) % Lymph % (Auto) 11.2 L (20-40) % Braxton % (Auto) 8.6 (2-11) % Eos % (Auto) 2.8 (0-4) % Baso % (Auto) 1.2 (0-2) % Lymph # (Auto) 0.5 L (1.2-4.9) X10*3/uL Braxton # (Auto) 0.4 (0.1-1.2) X10*3/uL Eos # (Auto) 0.1 (0.0-0.4) X10*3/uL Baso # (Auto) 0.1 (0.0-0.2) X10*3/uL Abs Immat Gran (auto) 0.01 (0.00-0.03) X10*3/uL Absolute Neuts (auto) 3.3 (2.0-8.3) x10*3/uL Absolute Nucleated RBC 0.000 (0.0-0.012) X10*3/uL Nucleated RBC % (auto) 0.0 (0.0-0.2) /100WBC VBG pH 7.44 H (7.32-7.43) VBG pCO2 39 mmHg VBG pO2 121 mmHg VBG HCO3 26 (22-26) mmol/L VBG O2 Saturation 100.0 % VBG Base Excess 2.5 mmol/L Sodium 138 (135-145) mmol/L Potassium 3.8 (3.3-5.1) mmol/L Chloride 100 (96-108) mmol/L Carbon Dioxide 29 (22-29) mmol/L Anion Gap 13 (12-20) BUN 25 H (9-16) mg/dL Creatinine 1.33 (0.5-1.4) mg/dL Estim Creat Clear Calc 24.4 Estimated GFR 38 Random Glucose 116 H (60-115) mg/dL Lactic Acid 1.6 (0.5-2.0) mmol/L Calcium 9.1 (8.4-10.2) mg/dL Magnesium 2.3 (1.6-2.6) mg/dL Total Bilirubin 0.4 (0.0-1.0) mg/dL Direct Bilirubin 0.1 (0.0-0.5) mg/dL AST 33 H (5-31) U/L ALT 39 H (0-31) U/L Alkaline Phosphatase 76 (39-117) U/L Total Creatine Kinase 241 H (26-140) U/L Troponin I High Sens 2.9 (<3.5-17.0) ng/L B-Natriuretic Peptide 39 (<100) pg/mL Total Protein 7.8 (6.5-8.0) g/dL Albumin 4.3 (3.5-5.0) g/dL Lipase 39 (8-78) U/L Urine Color Yellow Urine Appearance Turbid Urine pH 7.5 (5.0-9.0) Ur Specific Zahl 1.010 (1.005-1.025) Urine Protein Trace (Neg-Trace) mg/dL Urine Glucose (UA) Negative (Negative) mg/dL Urine Ketones Negative (Negative) mg/dL Urine Blood Trace H (Negative) Urine Nitrite Negative (Negative) Ur Leukocyte Esterase Large (3+) H (Negative) Urine RBC 0-2 (0-2) /HPF Urine WBC >50 H (0-5) /HPF Ur Squamous Epith Cells >20 (0-2) /HPF Urine Bacteria 4+ (None Seen) Hyaline Casts 0-2 (0-2) /LPF Influenza Type A (PCR) NEGATIVE (Negative) Influenza Type B (PCR) NEGATIVE (Negative) RSV RNA Qual (PCR) NEGATIVE (Negative) SARS-CoV-2 RNA (RT-PCR) NEGATIVE (Negative) Independent Interpretation I performed an independent interpretation of an: EKG, Plain X-Ray and CT Scan Interpretation: Rate: 68 Rhythm: NSR [place]: left Normal P waves. 1st degree AVB Normal QRS complex. ST T wave : t ave inversion III, no KOMAL qTC: 425 prior studies: no acute ischemia The study has been interpreted contemporaneously by me. . Radiology Impression Discussion of test interpretation with radiology: I have reviewed the radiologist's reading. Independent Historian Clinical information obtained from an independent historian. History obtained from or confirmed by: EMS External Record Review External record reviewed: Outpatient record Prescription Management I considered prescription management with: Antibiotic Discharge Plan Discharge Clinical Impression: Acute UTI Patient Disposition: Home, Self-Care Instructions: Urinary Tract Infection in Women (ED) Additional Instructions: CT scan and chest xray reassuring labs near her baseline stay hydrated monitor for any worsening symptoms or confusion please bring her back to the ED with any concerns next dose of antibiotic is tomorrow morning On a cephalosporin?antibiotic, softer bowel movements are to be expected. Call your provider if you move your bowels more than 4 times a day, your bowel movements are almost all liquid, or you get a rash.?? Prescriptions: New cefuroxime axetil 250 mg tablet 250 mg PO BID 7 Days Qty: 14 0RF No Action omeprazole 20 mg capsule,delayed release(DR/EC) 20 mg PO BID Qty: 180 2RF magnesium oxide 400 mg magnesium capsule 400 mg PO DAILY Qty: 90 1RF (DME) low height rollator See Rx Instructions .Route .MEDSUPPLY Qty: 1 0RF Rx Instructions: As directed levothyroxine 88 mcg tablet 88 mcg PO DAILY@0600 90 Days Qty: 90 1RF loratadine 10 mg tablet 10 mg PO DAILY Qty: 30 5RF Myrbetriq 25 mg tablet extended release 24 hr 25 mg PO DAILY Qty: 90 2RF levetiracetam 1,000 mg tablet 1,000 mg PO BID Qty: 180 0RF metoprolol succinate 25 mg tablet extended release 24 hr 25 mg PO DAILY Qty: 30 3RF aspirin 81 mg Tablet,Delayed Release (Dr/Ec) 81 mg PO DAILY Qty: 30 0RF acetaminophen 500 mg Tablet 1,000 mg PO DAILY PRN (Reason: Pain) lorazepam 1 mg tablet 0.5 mg PO DAILY@1700 Print Language: Chinese
--- OUTSIDE RECORDS SUMMARY | 2024-03-15 10:54 | XMS_ITS | Patient Health Record ---
Author Organization [facility] Address [address] [place] [address] Care Team Providers Care Wound/Ostomy Clinical Nurse Specialist Name Role Phone Marie Villanueva MD Primary Care Provider Satish Villagran [phone] REASON FOR REFERRAL No Information SOCIAL HISTORY Sex Assigned At : Social History Observation Description Sex Assigned At Unknown PROBLEMS Problem Type ICD Code Onset Dates Problem Status W/U Status Risk SNOMED Code Notes Problem Dysphagia (R13.10) Active confirmed Dysphagia (76402239) PLAN OF TREATMENT No Information Insurance Providers Payer Name Payer Address Payer Phone Subscriber Number Group Number Insured Name Patient Relationship to Insured Coverage Start Date Coverage End Date MEDICARE OF [place] [address] [place] [address] [phone] [id number] JANETH WELDON Self - patient is the insured [employer] ATT[employer] CLAIMS [address] [place] [address] [id number] JANETH WELDON Self - patient is the insured
--- OUTSIDE RECORDS SUMMARY | 2024-03-15 10:54 | XMS_ITS | Clinical Summary ---
Author Organization Unknown Care Team Providers Care Product Specialist Name Role Phone DANNA STACK, FORREST Unavailable Unavailable FARIDA PT, ARSENIO Unavailable Unavailable KOTA RN, ADIEL Unavailable Unavailable NANCY RN, VITO Unavailable Unavailable Payers Payer Name Policy Type Policy Number Effective Date Expira tion Date MEDICARE - [place] - [place] [id number] Problems Condition Name Condition Details Condition Category Status Onset Date Resolution Date Last Treatment Date Treating Clinician Comments FACIAL WEAKNESS FOLLOWING CEREBRAL INFARCTION Active 12-05 00:00: 00 HEMIPLGA FOLLOWING CEREBRAL INFRC AFFECTING LEFT NONDOM SIDE Active 12-05 00:00: 00 EPILEPSY, UNSP, NOT INTRACTABLE, WITHOUT STATUS EPILEPTICUS Active 12-05 00:00: 00 ESSENTIAL (PRIMARY) HYPERTENSION Active 12-05 00:00: 00 HYPOTHYROIDI SM, UNSPECIFIED Active 12-05 00:00: 00 MIGRAINE, UNSP, NOT INTRACTABLE, WITHOUT STATUS MIGRAINOSUS Active 12-05 00:00: 00 HYPO-OSMOLAL ITY AND HYPONATREMIA Active 12-05 00:00: 00 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 Active 12-05 00:00: 00 ANXIETY DISORDER, UNSPECIFIED Active 12-05 00:00: 00 GOUT, UNSPECIFIED Active 12-05 00:00: 00 PURE HYPERCHOLEST EROLEMIA, UNSPECIFIED Active 12-05 00:00: 00 OBESITY, UNSPECIFIED Active 12-05 00:00: 00 BODY MASS INDEX [BMI] 27.0-27.9, ADULT Active 12-05 00:00: 00 PERSONAL HISTORY OF OTHER VENOUS THROMBOSIS AND EMBOLISM Active 12-05 00:00: 00 PERSONAL HISTORY OF COVID-19 Active 12-05 00:00: 00 PERSONAL HISTORY OF PNEUMONIA (RECURRENT) Active 12-05 00:00: 00 PRESENCE OF LEFT ARTIFICIAL KNEE JOINT Active 12-05 00:00: 00 Problems related to health literacy Active 12-05 00:00: 00 LONGTERM (CURRENT) USE OF ASPIRIN Active 12-05 00:00: 00 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 Ordering Clinician Indication Dosage Frequency Signature (SIG) Comments Components metoprolol succinate ER 25 mg tablet,exte nded release 24 hr 09-27 00:00: 00 Yes [id number] 1 tablet DAILY 1 tablet DAILY (route: oral) Med Classific ation: Cardiovas cular Therapy Agents omeprazole 20 mg capsule,del ayed release 09-21 00:00: 00 Yes [id number] Per instruc tions TWICE DAILY Per instructio ns TWICE DAILY (route: oral) Med Classific ation: Gastroint estinal Therapy Agents meloxicam 15 mg tablet 09-01 00:00: 00 11-15 23:59 :00 No [id number] Per instruc tions BEDTIME Per instructio ns BEDTIME (route: oral) Med Classific ation: Analgesic , Anti-infl ammatory or Antipyret ic aspirin 81 mg tablet,nakia yed release 10-03 00:00: 00 Yes [id number] 1 tablet DAILY 1 tablet DAILY (route: oral) Med Classific ation: Hematolog ical Agents atorvastati n 40 mg tablet 10-03 00:00: 00 11-15 23:59 :00 No [id number] 1 tablet BEDTIME 1 tablet BEDTIME (route: oral) Med Classific ation: Cardiovas cular Therapy Agents levetiracet am 1,000 mg tablet 10-03 00:00: 00 Yes [id number] 1 tablet 2 TIMES DAILY 1 tablet 2 TIMES DAILY (route: oral) Med Classific ation: Central Nervous System Agents levothyroxi ne 88 mcg tablet 10-03 00:00: 00 Yes [id number] 1 tablet DAILY 1 tablet DAILY (route: oral) Med Classific ation: Endocrine Lidocare 4 % topical patch 10-03 00:00: 00 Yes [id number] 1 adhesiv e patch, medicat ed DAILY 1 adhesive patch, medicated DAILY (route: topical) Med Classific ation: Dermatolo gical loperamide 2 mg tablet 10-03 00:00: 00 Yes [id number] 1 tablet EVERY 6 HOURS 1 tablet EVERY 6 HOURS (route: oral) Med Classific ation: Gastroint estinal Therapy Agents loratadine 10 mg tablet 10-03 00:00: 00 Yes [id number] 1 tablet DAILY 1 tablet DAILY (route: oral) Med Classific ation: Respirato ry Therapy Agents lorazepam 0.5 mg tablet 10-03 00:00: 00 Yes [id number] 1 tablet BEDTIME 1 tablet BEDTIME (route: oral) Med Classific ation: Central Nervous System Agents magnesium 400 mg (as magnesium oxide) capsule 10-03 00:00: 00 Yes [id number] 1 capsule DAILY 1 capsule DAILY (route: oral) Med Classific ation: Electroly te Balance-N utritiona l Products Myrbetriq 25 mg tablet,exte nded release 10-03 00:00: 00 Yes [id number] 1 tablet DAILY 1 tablet DAILY (route: oral) Med Classific ation: Genitouri nary Therapy sumatriptan 50 mg tablet 10-03 00:00: 00 Yes [id number] 1 tablet DAILY 1 tablet DAILY (route: oral) Med Classific ation: Central Nervous System Agents Tylenol 325 mg capsule 10-03 00:00: 00 Yes [id number] 975 mg 3 TIMES DAILY 975 mg 3 TIMES DAILY (route: oral) Med Classific ation: Analgesic , Anti-infl ammatory or Antipyret ic atorvastati n 80 mg tablet 11-15 00:00: 00 Yes [id number] 1 tablet BEDTIME 1 tablet BEDTIME (route: oral) Med Classific ation: Cardiovas cular Therapy Agents Immunizations Ordered Immunization Name Filled Immunization Name Date Status Comments Refusal Reason INFLUENZA, TIV (INACTIVATED) 2024-01-25 00:00:00 INFLUENZA, TIV (INACTIVATED) 2023-04-05 00:00:00 Vital Signs Vital Name Observation Time Observation Value Commen ts Temperature 2024-01-30 11:30:00.000 97.3 [degF] Temperature 2024-01-25 12:38:00.000 98.1 [degF] Temperature 2024-01-16 11:36:00.000 97.3 [degF] Temperature 2024-01-10 14:14:00.000 97.1 [degF] Temperature 2024-01-10 13:18:00.000 96.6 [degF] Temperature 2024-01-03 12:51:00.000 97.9 [degF] Temperature 2024-01-02 10:40:00.000 96.6 [degF] Temperature 2023-12-27 14:35:00.000 96.6 [degF] Temperature 2023-12-27 10:41:00.000 96.6 [degF] Temperature 2023-12-20 12:53:00.000 98.7 [degF] Temperature 2023-12-19 10:45:00.000 96.6 [degF] Temperature 2023-12-13 09:49:00.000 97.5 [degF] Temperature 2023-12-06 13:42:00.000 96.7 [degF] BMI (%) 2023-12-06 13:42:00.000 27 kg/m2 Height 2023-12-06 13:42:00.000 60 [in_us] Pulse 2024-01-30 11:30:00.000 74 /min Pulse 2024-01-25 12:38:00.000 94 /min Pulse 2024-01-16 11:36:00.000 82 /min Pulse 2024-01-10 14:14:00.000 72 /min Pulse 2024-01-10 13:18:00.000 60 /min Pulse 2024-01-03 12:51:00.000 70 /min Pulse 2024-01-02 10:40:00.000 64 /min Pulse 2023-12-27 14:35:00.000 78 /min Pulse 2023-12-27 10:40:00.000 78 /min Pulse 2023-12-26 18:38:00.000 72 /min Pulse 2023-12-20 12:53:00.000 78 /min Pulse 2023-12-19 10:45:00.000 68 /min Pulse 2023-12-13 09:49:00.000 84 /min Pulse 2023-12-06 13:42:00.000 77 /min O2 Saturation (%) 2024-01-30 11:30:00.000 95 % O2 Saturation (%) 2024-01-25 12:38:00.000 98 % O2 Saturation (%) 2024-01-16 11:36:00.000 99 % O2 Saturation (%) 2024-01-10 14:14:00.000 98 % O2 Saturation (%) 2024-01-10 13:18:00.000 98 % O2 Saturation (%) 2024-01-03 12:51:00.000 98 % O2 Saturation (%) 2024-01-02 10:40:00.000 99 % O2 Saturation (%) 2023-12-27 14:35:00.000 98 % O2 Saturation (%) 2023-12-27 10:40:00.000 98 % O2 Saturation (%) 2023-12-26 18:38:00.000 99 % O2 Saturation (%) 2023-12-20 12:53:00.000 98 % O2 Saturation (%) 2023-12-19 10:45:00.000 95 % O2 Saturation (%) 2023-12-13 09:49:00.000 100 % O2 Saturation (%) 2023-12-06 13:47:00.000 97 % Respirations 2024-01-30 11:30:00.000 16 /min Respirations 2024-01-25 12:38:00.000 18 /min Respirations 2024-01-10 14:14:00.000 16 /min Respirations 2024-01-10 13:18:00.000 16 /min Respirations 2024-01-03 12:51:00.000 16 /min Respirations 2024-01-02 10:40:00.000 18 /min Respirations 2023-12-27 14:35:00.000 18 /min Respirations 2023-12-27 10:40:00.000 18 /min Respirations 2023-12-20 12:53:00.000 18 /min Respirations 2023-12-19 10:45:00.000 18 /min Respirations 2023-12-13 09:49:00.000 16 /min Respirations 2023-12-06 13:42:00.000 18 /min Weight (lbs) 2023-12-06 13:42:00.000 141 [lb_av] Systolic Blood Pressure 2024-01-30 11:30:00.000 124 mm [Hg] Systolic Blood Pressure 2024-01-25 12:38:00.000 144 mm [Hg] Systolic Blood Pressure 2024-01-16 11:36:00.000 124 mm [Hg] Systolic Blood Pressure 2024-01-10 14:14:00.000 132 mm [Hg] Systolic Blood Pressure 2024-01-10 13:18:00.000 116 mm [Hg] Systolic Blood Pressure 2024-01-03 12:51:00.000 122 mm [Hg] Systolic Blood Pressure 2024-01-02 10:40:00.000 118 mm [Hg] Systolic Blood Pressure 2023-12-27 14:35:00.000 122 mm [Hg] Systolic Blood Pressure 2023-12-27 10:40:00.000 122 mm [Hg] Systolic Blood Pressure 2023-12-26 18:38:00.000 128 mm [Hg] Systolic Blood Pressure 2023-12-20 12:53:00.000 148 mm [Hg] Systolic Blood Pressure 2023-12-19 10:45:00.000 110 mm [Hg] Systolic Blood Pressure 2023-12-13 09:49:00.000 138 mm [Hg] Systolic Blood Pressure 2023-12-06 13:42:00.000 120 mm [Hg] Diastolic Blood Pressure 2024-01-30 11:30:00.000 76 mm [Hg] Diastolic Blood Pressure 2024-01-25 12:38:00.000 80 mm [Hg] Diastolic Blood Pressure 2024-01-16 11:36:00.000 70 mm [Hg] Diastolic Blood Pressure 2024-01-10 14:14:00.000 76 mm [Hg] Diastolic Blood Pressure 2024-01-10 13:18:00.000 70 mm [Hg] Diastolic Blood Pressure 2024-01-03 12:51:00.000 62 mm [Hg] Diastolic Blood Pressure 2024-01-02 10:40:00.000 70 mm [Hg] Diastolic Blood Pressure 2023-12-27 14:35:00.000 82 mm [Hg] Diastolic Blood Pressure 2023-12-27 10:40:00.000 82 mm [Hg] Diastolic Blood Pressure 2023-12-26 18:38:00.000 62 mm [Hg] Diastolic Blood Pressure 2023-12-20 12:53:00.000 80 mm [Hg] Diastolic Blood Pressure 2023-12-19 10:45:00.000 66 mm [Hg] Diastolic Blood Pressure 2023-12-13 09:49:00.000 82 mm [Hg] Diastolic Blood Pressure 2023-12-06 13:42:00.000 60 mm [Hg] Plan of Treatment Planned Activity Planned Date Details Comments Future Scheduled Test SKILLED NU RSE TO EVALUATE PATIENT, IDENTIFY PRIMARY AND CO-MORBID CONDITIONS CODED PER CODING GUIDELINES, AND DEVELOP PATIENT SPECIFIC PLAN OF CARE THAT INCLUDES PATIENT GOAL FOR HOME HEALTH. [code = SKILLED NURSE TO EVALUATE PATIENT, IDENTIFY PRIMARY AND CO-MORBID CONDITIONS CODED PER CODING GUIDELINES, AND DEVELOP PATIENT SPECIFIC PLAN OF CARE THAT INCLUDES PATIENT GOAL FOR HOME HEALTH.] Future Scheduled Test SKILLED NU RSE TO REVIEW PATIENT MEDICATIONS. INSTRUCT PATIENT/CAREGIVER ON MONITORING OF EFFECTIVENESS, ADVERSE DRUG REACTIONS, SIDE EFFECTS OF ALL MEDICATIONS (PRESCRIPTION/-OTC), AND HOW AND WHEN TO REPORT PROBLEMS. [code = SKILLED NURSE TO REVIEW PATIENT MEDICATIONS. INSTRUCT PATIENT/CAREGIVER ON MONITORING OF EFFECTIVENESS, ADVERSE DRUG REACTIONS, SIDE EFFECTS OF ALL MEDICATIONS (PRESCRIPTION/-OTC), AND HOW AND WHEN TO REPORT PROBLEMS.] Future Scheduled Test SKILLED NU RSE TO ASSESS ANXIETY AND PROVIDE ASSISTANCE TO PATIENT FOR UNDERSTANDING AND MANAGEMENT OF FEELINGS. [code = SKILLED NURSE TO ASSESS ANXIETY AND PROVIDE ASSISTANCE TO PATIENT FOR UNDERSTANDING AND MANAGEMENT OF FEELINGS.] Future Scheduled Test SKILLED NU RSE FOR O/A, TEACHING, AND MANAGEMENT OF HTN, HLD. [code = SKILLED NURSE FOR O/A, TEACHING, AND MANAGEMENT OF HTN, HLD.] Future Scheduled Test SKILLED NU RSE FOR O/A, TEACHING RELATED TO GERD FOR EARLY IDENTIFICATION OF EXACERBATION OF DISEASE PROCESS. [code = SKILLED NURSE FOR O/A, TEACHING RELATED TO GERD FOR EARLY IDENTIFICATION OF EXACERBATION OF DISEASE PROCESS.] Future Scheduled Test SKILLED NU RSE FOR O/A OF RESPIRATORY SYSTEM TO IDENTIFY CHANGES ASSOCIATED WITH EXACERBATION AND TO PROVIDE SKILLED TEACHING ON MANAGEMENT OF COVID PROCESS. [code = SKILLED NURSE FOR O/A OF RESPIRATORY SYSTEM TO IDENTIFY CHANGES ASSOCIATED WITH EXACERBATION AND TO PROVIDE SKILLED TEACHING ON MANAGEMENT OF COVID PROCESS.] Future Scheduled Test SKILLED NU RSE FOR O/A AND TEACHING OF ENDOCRINE SYSTEM TO IDENTIFY CHANGES ASSOCIATED WITH EXACERBATION OF HYPOTHYROIDISM FOR EARLY INTERVENTION OF COMPLICATIONS. [code = SKILLED NURSE FOR O/A AND TEACHING OF ENDOCRINE SYSTEM TO IDENTIFY CHANGES ASSOCIATED WITH EXACERBATION OF HYPOTHYROIDISM FOR EARLY INTERVENTION OF COMPLICATIONS.] Future Scheduled Test SKILLED NU RSE FOR O/A TO IDENTIFY CHANGES ASSOCIATED WITH FACIAL DROOP, APHASIA AND PROVIDE INSTRUCTION RELATED TO SAFETY MEASURES TO PREVENT INJURY SECONDARY TO IMPAIRED NEUROLOGICAL STATUS. SKILLED NURSE TO REPORT SIGNIFICANT CHANGES OF NEUROLOGIC STATUS TO PHYSICIAN FOR EARLY INTERVENTION. [code = SKILLED NURSE FOR O/A TO IDENTIFY CHANGES ASSOCIATED WITH FACIAL DROOP, APHASIA AND PROVIDE INSTRUCTION RELATED TO SAFETY MEASURES TO PREVENT INJURY SECONDARY TO IMPAIRED NEUROLOGICAL STATUS. SKILLED NURSE TO REPORT SIGNIFICANT CHANGES OF NEUROLOGIC STATUS TO PHYSICIAN FOR EARLY INTERVENTION.] Future Scheduled Test SKILLED NU RSE FOR O/A AND SKILLED TEACHING IN MANAGEMENT OF DVT CIRCULATORY/VASCULAR DISEASE. [code = SKILLED NURSE FOR O/A AND SKILLED TEACHING IN MANAGEMENT OF DVT CIRCULATORY/VASCULAR DISEASE.] Future Scheduled Test PHYSICAL T HERAPIST TO EVALUATE PATIENT FOR PT [code = PHYSICAL THERAPIST TO EVALUATE PATIENT FOR PT] Future Scheduled Test SKILLED NU RSE TO INSTRUCT ON SAFETY MEASURES TO PREVENT INJURY SECONDARY TO SEIZURE DISORDER/IMPAIRED NEUROLOGICAL STATUS. [code = SKILLED NURSE TO INSTRUCT ON SAFETY MEASURES TO PREVENT INJURY SECONDARY TO SEIZURE DISORDER/IMPAIRED NEUROLOGICAL STATUS.] Future Scheduled Test SKILLED NU RSE TO INSTRUCT PATIENT/CAREGIVER ON WARNING SIGNS OF CVA, RISK FACTORS, AND METHODS TO MANAGE LONGTERM EFFECTS OF CVA. 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 [code = SKILLED NURSE FOR O/A AND SKILLED TEACHING RELATED TO SIGNS AND SYMPTOMS AND MANAGEMENT OF OA, GOUT.] Future Scheduled Test VIRTUAL SIT FREQUENCY: 1-6 PER WEEK X 3 WEEKS AND 6 PRN VIRTUAL VISITS MAY BE PERFORMED UTILIZING TELECOMMUNICATIONS SYSTEM TO OPTIMIZE SKILLED SERVICES FURNISHED ON THE PLAN OF CARE. SKILLED NURSE TO ESTABLISH SUPPORT MEASURES TO MINIMIZE RISK OF REHOSPITALIZATION, AND INSTRUCT PATIENT/CAREGIVER ON METHODS TO REDUCE AVOIDABLE HOSPITALIZATION. [code = VIRTUAL VISIT FREQUENCY: 1-6 PER WEEK X 3 WEEKS AND 6 PRN VIRTUAL VISITS MAY BE PERFORMED UTILIZING TELECOMMUNICATIONS SYSTEM TO OPTIMIZE SKILLED SERVICES FURNISHED ON THE PLAN OF CARE. SKILLED NURSE TO ESTABLISH SUPPORT MEASURES TO MINIMIZE RISK OF REHOSPITALIZATION, AND INSTRUCT PATIENT/CAREGIVER ON METHODS TO REDUCE AVOIDABLE HOSPITALIZATION.] Future Scheduled Test PATIENT LANG S A RISK OF HOSPITALIZATION AND ED USE. SKILLED NURSE TO ESTABLISH SUPPORT MEASURES TO MINIMIZE RISK OF HOSPITALIZATION AND ED USE, AND INSTRUCT PATIENT/CAREGIVER ON METHODS TO REDUCE AVOIDABLE HOSPITALIZATION AND ED USE. [code = PATIENT HAS A RISK OF HOSPITALIZATION AND ED USE. SKILLED NURSE TO ESTABLISH SUPPORT MEASURES TO MINIMIZE RISK OF HOSPITALIZATION AND ED USE, AND INSTRUCT PATIENT/CAREGIVER ON METHODS TO REDUCE AVOIDABLE HOSPITALIZATION AND ED USE.] Future Scheduled Test SKILLED NU RSE TO PROVIDE INSTRUCTION TO PATIENT/CAREGIVER RELATED TO DISCHARGE PLANNING. [code = SKILLED NURSE TO PROVIDE INSTRUCTION TO PATIENT/CAREGIVER RELATED TO DISCHARGE PLANNING.] Future Scheduled Test SKILLED NU RSE TO PERFORM HOME SAFETY AND FALL ASSESSMENT AND PROVIDE INSTRUCTION TO IMPLEMENT HOME SAFETY AND FALL PREVENTION STRATEGIES. [code = SKILLED NURSE TO PERFORM HOME SAFETY AND FALL ASSESSMENT AND PROVIDE INSTRUCTION TO IMPLEMENT HOME SAFETY AND FALL PREVENTION STRATEGIES.] Future Scheduled Test SKILLED NU RSE FOR OBSERVATION AND ASSESSMENT OF PATIENTS PAIN LEVEL AND EFFECTIVENESS OF PAIN MANAGEMENT REGIMEN. SKILLED NURSE TO INSTRUCT PATIENT/CAREGIVER REGARDING PHARMACOLOGIC AND NON-PHARMACOLOGIC PAIN CONTROL MEASURES. SKILLED NURSE TO REPORT TO PHYSICIAN IF PAIN IS UNCONTROLLED WITH CURRENT PAIN MANAGEMENT REGIMEN. [code = SKILLED NURSE FOR OBSERVATION AND ASSESSMENT OF PATIENTS PAIN LEVEL AND EFFECTIVENESS OF PAIN MANAGEMENT REGIMEN. SKILLED NURSE TO INSTRUCT PATIENT/CAREGIVER REGARDING PHARMACOLOGIC AND NON-PHARMACOLOGIC PAIN CONTROL MEASURES. SKILLED NURSE TO REPORT TO PHYSICIAN IF PAIN IS UNCONTROLLED WITH CURRENT PAIN MANAGEMENT REGIMEN.] Future Scheduled Test SKILLED NU RSE TO ASSESS PATIENT'S SKIN INTEGRITY AND INSTRUCT PATIENT/CAREGIVER ON MEASURES TO PREVENT PRESSURE ULCERS. [code = SKILLED NURSE TO ASSESS PATIENT'S SKIN INTEGRITY AND INSTRUCT PATIENT/CAREGIVER ON MEASURES TO PREVENT PRESSURE ULCERS.] Future Scheduled Test PHYSICAL T HERAPIST TO EVALUATE PATIENT SECONDARY TO FUNCTIONAL DEFICITS/SAFETY CONCERNS. PHYSICAL THERAPIST TO ASSESS BEST PRACTICE INTERVENTIONS TO ASSIST PATIENTS TO IMPROVE OR STABILIZE MEDICAL STATUS AND PREVENT RE-HOSPITALIZATION. MEASURES INCLUDING REVIEW AND IDENTIFICATION OF CONCERNS FOR THE FOLLOWING AREAS: ENVIRONMENTAL SAFETY ISSUES AND FALLS, PRESSURE ULCERS, PAIN, AND DISEASE MANAGEMENT. OCCUPATIONAL THERAPIST TO EVALUATE PATIENT SECONDARY TO DEFICITS/CONCERNS FOUND DURING EVALUATION INCLUDING COGNITIVE AND ADL COMPLETION DEFICITS. PHYSICAL THERAPY TO ESTABLISH /UPGRADE/DOWNGRADE THERAPEUTIC EXERCISE PROGRAM AND INSTRUCT PATIENT/CAREGIVER ON EXERCISE PRECAUTIONS WITH WRITTEN HOME PROGRAM. MAY INCLUDE PROM, AAROM, AROM, RROM APPROPRIATE TO IMPROVE FUNCTIONAL STRENGTH AND RANGE OF MOTION. PHYSICAL THERAPY TO INSTRUCT PATIENT/CAREGIVER ON SAFE TRANSFER TECHNIQUES USING PROPER BODY MECHANICS AND EQUIPMENT. PHYSICAL THERAPY TO INSTRUCT PATIENT/CAREGIVER ON GAIT TRAINING TECHNIQUES USING APPROPRIATE ASSISTIVE DEVICE, PROPER BODY MECHANICS TO IMPROVE MOBILITY, AND PREVENT INJURY OF PATIENT AND/OR CAREGIVER. PHYSICAL THERAPY TO ASSESS AND RECOMMEND HOME SAFETY ADAPTATIONS AND EDUCATE PATIENT /CAREGIVER ON FALL PREVENTION STRATEGIES. PATIENT TO PARTICIPATE IN [facility] STROKE SPECIALTY PROGRAM PHYSICAL THERAPY TO INSTRUCT PATIENT/CAREGIVER ON BALANCE AND BALANCE STRATEGIES TO IMPROVE SAFE MOBILITY AND REDUCE RISK FOR FALL AND INJURY INCLUDING PARTICIPATION IN [facility] BALANCE SPECIALTY PROGRAM PHYSICAL THERAPY TO INSTRUCT PATIENT/CAREGIVER ON VESTIBULAR TECHNIQUES TO REDUCE DIZZINESS AND IMPROVE BALANCE TO INCREASE SAFE MOBILITY AND REDUCE RISK FOR FALL AND/OR INJURY INCLUDING PARTICIPATION IN [facility] BALANCE SPECIALTY PROGRAM. SUMMARY OF THERAPY EVAL/ASSESSMENT FINDINGS AND REASON(S) SKILLS OF A THERAPIST ARE INDICATED: PHYSICAL THERAPY EVALUATION (12/19/23) PATIENT IS A FORGETFUL [employer]PHOTIC 88 YEAR OLD FEMALE WITH PHYSICAL THERAPY REFERRAL DUE TO HOSPITALIZATION DUE TO S/S APHASIA, LEFT FACIAL DROOP, LEFT UE WEAKNESS. 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 PAST MD HX: TIA 2019, HYPOTHYROIDISM, GERD, MIGRAINE HEADACHES, VITAMIN DEFICIENCY, SEIZURE DISORDER, HYPERTENSION, BILAT TKR, UTI, T12 VERTEBRAL FX, ANXIETY, LE DVT. PATIENT LIVES IN 2 STORY HOME WITH DTR MONICA (WORKS FROM HOME MOST DAYS) AND A PUPPY, RAMP TO EXIT HOME, PATIENT'S BEDROOM AND SHOWER ON 2ND FLOOR WITH 14 SPIRAL STAIRS WITH RAIL TO NEGOTIATE (10 STEPS WITH BILAT RAIL). PATIENT'S SON IVANNA AND DTR LEXIS ALSO ASSIST WITH MANAGING PATIENT'S CARE. PLOF: AMB WITH ROLLATOR IN HOME MOD I, SUPERVISION WITH OUTDOOR AMB, ABLE TO NEGOTIATE STAIRS INDEP CLOF: AT START OF VISIT, PATIENT SLUMPED ON SOFA TO R SIDE. PATIENT DEMO SIGNIFICANT COGNITIVE DECLINE SINCE PHYSICAL THERAPY DISCHARGE 11/16/23. PATIENT REQUIRED INCREASED TIME TO RESPOND AND AT TIMES DID NOT ANSWER QUESTIONS. PATIENT DID NOT INITIATE CONVERSATION. AT TIME OF LAST AGENCY DISCHARGE, PATIENT HAD DIFFICULTY WITH SPEECH AND WAS TO PURSUE OUTPATIENT SPEECH THERAPY, HOWEVER CG MALDONADO ANDERSON REPORTS THAT PATIENT NEVER WENT HER SPEECH RETURNED TO NORMAL 4-5 DAYS UNTIL ONSET OF NEW NEUROLOGICAL SYMPTOMS. MALDONADO ANDERSON REPORTS DAILY AT 3:30 PM PATIENT'S WHOLE DEMEANOR CHANGES, EYES ROLL BACK AND FORTH, SHE BECOMES WEAK, DOES THINGS SHE NORMALLY DOESN'T DO (IE GO OUTSIDE ON THE PORCH BY HERSELF), PATIENT MUMBLES. MONICA REPORTS THAT AFTER SUPPER PATIENT DEMO IMPROVEMENT. PATIENT HAS MD NEUROLOGIST QUETA APPT 12/19. MALDONADO ANDERSON STATES PATIENT IS HAVING DIFFICULTY COMPLETING ADLS (TOILETING, EATING AND BRUSHING TEETH). EDUC ON POSSIBLE BENEFIT OF OT EVAL WITH PATIENT AND MONICA RECEPTIVE. BILAT LE ROM WFL, BILAT LE STRENGTH R: 4/5 L: 4-/5. TO INCREASE BILAT LE STRENGTH, PATIENT COMPLETED BILAT LE SEATED THER EXER WITH VERBAL CUES FOR FORM. DISPENSED HEP SHEET. PATIENT ABLE TO TRANSFER SIT-->STAND WITH ROLLATOR AND SUPERVISION, VERBAL CUES FOR AD PLACEMENT AND TO LOCK BRAKES. STATIC STAND = FAIR. PATIENT ABLE TO AMB 60' WITH ROLLATOR AND SUPERVISION, VERBAL CUES TO KEEP AD CLOSE TO BODY. THIS THERAPIST HAD ORDERED LOW HEIGHT ROLLATOR DURING PREVIOUS EPISODE OF CARE BUT NOT IN HOME, CALLED AND SPOKE WITH ELBA OF [employer]. ELBA INFORMED MD SCRIPT RECEIVED, LOW HEIGHT ROLLATOR READY FOR PICKUP, WITH MALDONADO ANDERSON STATING WILL PICKUP. PATIENT DID NOT FEEL UP TO NEGOTIATING STAIRS TO 2ND FLOOR. MALDONADO ANDERSON REPORTS PATIENT ASCENDS/DESCENDS STAIRS 1X DAY WITH SUPERVISION. PATIENT PRESENTS WITH THE FOLLOWING DEFICTS: DECREASED COGNITION, DIMINISHED BILAT LE STRENGTH, RESULTING IN DIFFICULTY WITH TRANSFERS, AMB AND STAIR NEGOTIATION. [facility]ILLED [facility] FREQ 1X4WKS TO ADDRESS DEFICITS, MAX SAFETY AND FUNCTIONAL LEVEL IN HOME ENVIRONMENT WITH PATIENT AND CG EDUC, TRANSFER AND GAIT TRAINING, THER EXER/HEP, BALANCE ACTIVITY. PATIENT AND CG INFORMED ABOUT PHYSICAL THERAPY POC, VERBALIZED ACCEPTANCE. NOTIFIED (SPOKE WITH DANIKA) ABOUT PATIENT STATUS AND POC, REQUEST VERBAL ORDERS RECEIVED FOR OT TO EVAL AND TREAT DUE TO COGNITIVE AND ADL DEFICITS. [code = PHYSICAL THERAPIST TO EVALUATE PATIENT SECONDARY TO FUNCTIONAL DEFICITS/SAFETY CONCERNS. PHYSICAL THERAPIST TO ASSESS BEST PRACTICE INTERVENTIONS TO ASSIST PATIENTS TO IMPROVE OR STABILIZE MEDICAL STATUS AND PREVENT RE-HOSPITALIZATION. MEASURES INCLUDING REVIEW AND IDENTIFICATION OF CONCERNS FOR THE FOLLOWING AREAS: ENVIRONMENTAL SAFETY ISSUES AND FALLS, PRESSURE ULCERS, PAIN, AND DISEASE MANAGEMENT. OCCUPATIONAL THERAPIST TO EVALUATE PATIENT SECONDARY TO DEFICITS/CONCERNS FOUND DURING EVALUATION INCLUDING COGNITIVE AND ADL COMPLETION DEFICITS. PHYSICAL THERAPY TO ESTABLISH /UPGRADE/DOWNGRADE THERAPEUTIC EXERCISE PROGRAM AND INSTRUCT PATIENT/CAREGIVER ON EXERCISE PRECAUTIONS WITH WRITTEN HOME PROGRAM. MAY INCLUDE PROM, AAROM, AROM, RROM APPROPRIATE TO IMPROVE FUNCTIONAL STRENGTH AND RANGE OF MOTION. PHYSICAL THERAPY TO INSTRUCT PATIENT/CAREGIVER ON SAFE TRANSFER TECHNIQUES USING PROPER BODY MECHANICS AND EQUIPMENT. PHYSICAL THERAPY TO INSTRUCT PATIENT/CAREGIVER ON GAIT TRAINING TECHNIQUES USING APPROPRIATE ASSISTIVE DEVICE, PROPER BODY MECHANICS TO IMPROVE MOBILITY, AND PREVENT INJURY OF PATIENT AND/OR CAREGIVER. PHYSICAL THERAPY TO ASSESS AND RECOMMEND HOME SAFETY ADAPTATIONS AND EDUCATE PATIENT /CAREGIVER ON FALL PREVENTION STRATEGIES. PATIENT TO PARTICIPATE IN [facility] STROKE SPECIALTY PROGRAM PHYSICAL THERAPY TO INSTRUCT PATIENT/CAREGIVER ON BALANCE AND BALANCE STRATEGIES TO IMPROVE SAFE MOBILITY AND REDUCE RISK FOR FALL AND INJURY INCLUDING PARTICIPATION IN [facility] BALANCE SPECIALTY PROGRAM PHYSICAL THERAPY TO INSTRUCT PATIENT/CAREGIVER ON VESTIBULAR TECHNIQUES TO REDUCE DIZZINESS AND IMPROVE BALANCE TO INCREASE SAFE MOBILITY AND REDUCE RISK FOR FALL AND/OR INJURY INCLUDING PARTICIPATION IN [facility] BALANCE SPECIALTY PROGRAM. SUMMARY OF THERAPY EVAL/ASSESSMENT FINDINGS AND REASON(S) SKILLS OF A THERAPIST ARE INDICATED: PHYSICAL THERAPY EVALUATION (12/19/23) PATIENT IS A FORGETFUL [employer] 88 YEAR OLD FEMALE WITH PHYSICAL THERAPY REFERRAL DUE TO HOSPITALIZATION DUE TO S/S APHASIA, LEFT FACIAL DROOP, LEFT UE WEAKNESS. 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 PAST MD HX: TIA 2019, HYPOTHYROIDISM, GERD, MIGRAINE HEADACHES, VITAMIN DEFICIENCY, SEIZURE DISORDER, HYPERTENSION, BILAT TKR, UTI, T12 VERTEBRAL FX, ANXIETY, LE DVT. PATIENT LIVES IN 2 STORY HOME WITH MALDONADO ANDERSON (WORKS FROM HOME MOST DAYS) AND A PUPPY, RAMP TO EXIT HOME, PATIENT'S BEDROOM AND SHOWER ON 2ND FLOOR WITH 14 SPIRAL STAIRS WITH RAIL TO NEGOTIATE (10 STEPS WITH BILAT RAIL). PATIENT'S SON IVANNA AND DTR LEXIS ALSO ASSIST WITH MANAGING PATIENT'S CARE. PLOF: AMB WITH ROLLATOR IN HOME MOD I, SUPERVISION WITH OUTDOOR AMB, ABLE TO NEGOTIATE STAIRS INDEP CLOF: AT START OF VISIT, PATIENT SLUMPED ON SOFA TO R SIDE. PATIENT DEMO SIGNIFICANT COGNITIVE DECLINE SINCE PHYSICAL THERAPY DISCHARGE 11/16/23. PATIENT REQUIRED INCREASED TIME TO RESPOND AND AT TIMES DID NOT ANSWER QUESTIONS. PATIENT DID NOT INITIATE CONVERSATION. AT TIME OF LAST AGENCY DISCHARGE, PATIENT HAD DIFFICULTY WITH SPEECH AND WAS TO PURSUE OUTPATIENT SPEECH THERAPY, HOWEVER CG MALDONADO ANDERSON REPORTS THAT PATIENT NEVER WENT HER SPEECH RETURNED TO NORMAL 4-5 DAYS UNTIL ONSET OF NEW NEUROLOGICAL SYMPTOMS. MALDONADO ANDERSON REPORTS DAILY AT 3:30 PM PATIENT'S WHOLE DEMEANOR CHANGES, EYES ROLL BACK AND FORTH, SHE BECOMES WEAK, DOES THINGS SHE NORMALLY DOESN'T DO (IE GO OUTSIDE ON THE PORCH BY HERSELF), PATIENT MUMBLES. MONICA REPORTS THAT AFTER SUPPER PATIENT DEMO IMPROVEMENT. PATIENT HAS MD NEUROLOGIST QUETA APPT 12/19. MALDONADO ANDERSON STATES PATIENT IS HAVING DIFFICULTY COMPLETING ADLS (TOILETING, EATING AND BRUSHING TEETH). EDUC ON POSSIBLE BENEFIT OF OT EVAL WITH PATIENT AND MONICA RECEPTIVE. BILAT LE ROM WFL, BILAT LE STRENGTH R: 4/5 L: 4-/5. TO INCREASE BILAT LE STRENGTH, PATIENT COMPLETED BILAT LE SEATED THER EXER WITH VERBAL CUES FOR FORM. DISPENSED HEP SHEET. PATIENT ABLE TO TRANSFER SIT-->STAND WITH ROLLATOR AND SUPERVISION, VERBAL CUES FOR AD PLACEMENT AND TO LOCK BRAKES. STATIC STAND = FAIR. PATIENT ABLE TO AMB 60' WITH ROLLATOR AND SUPERVISION, VERBAL CUES TO KEEP AD CLOSE TO BODY. THIS THERAPIST HAD ORDERED LOW HEIGHT ROLLATOR DURING PREVIOUS EPISODE OF CARE BUT NOT IN HOME, CALLED AND SPOKE WITH ELBA OF [facility]. ELBA INFORMED MD SCRIPT RECEIVED, LOW HEIGHT ROLLATOR READY FOR PICKUP, WITH MALDONADO ANDERSON STATING WILL PICKUP. PATIENT DID NOT FEEL UP TO NEGOTIATING STAIRS TO 2ND FLOOR. DTR MONICA REPORTS PATIENT ASCENDS/DESCENDS STAIRS 1X DAY WITH SUPERVISION. PATIENT PRESENTS WITH THE FOLLOWING DEFICTS: DECREASED COGNITION, DIMINISHED BILAT LE STRENGTH, RESULTING IN DIFFICULTY WITH TRANSFERS, AMB AND STAIR NEGOTIATION. SKILLED [facility] FREQ 1X4WKS TO ADDRESS DEFICITS, MAX SAFETY AND FUNCTIONAL LEVEL IN HOME ENVIRONMENT WITH PATIENT AND CG EDUC, TRANSFER AND GAIT TRAINING, THER EXER/HEP, BALANCE ACTIVITY. PATIENT AND CG INFORMED ABOUT PHYSICAL THERAPY POC, VERBALIZED ACCEPTANCE. NOTIFIED (SPOKE WITH DANIKA) ABOUT PATIENT STATUS AND POC, REQUEST VERBAL ORDERS RECEIVED FOR OT TO EVAL AND TREAT DUE TO COGNITIVE AND ADL DEFICITS.] Future Scheduled Test OCCUPATION AL THERAPY TO EVALUATE AND TREAT. OCCUPATIONAL THERAPY EVALUATION COMPLETED. NO ADDITIONAL VISITS RECOMMENDED AT THIS TIME. [code = OCCUPATIONAL THERAPY TO EVALUATE AND TREAT. OCCUPATIONAL THERAPY EVALUATION COMPLETED. NO ADDITIONAL VISITS RECOMMENDED AT THIS TIME.] Goal 2024-01-30 Patient Goal - F EEL BETTER AND STAY HEALTHY Goal Provider Goal - A PLAN OF CARE WILL BE ESTABLISHED THAT MEETS PATIENT'S CARE HOME NEEDS AND INCLUDES PATIENT GOAL FOR HOME HEALTH. Goal Provider Goal - PATIENT/CAREGIVER WILL VERBALIZE UNDERSTANDING OF EDUCATION PROVIDED ON MEDICATIONS BY THE END OF THE CERTIFICATION PERIOD. Goal Provider Goal - SYMPTOMS OF ANXIETY ARE IDENTIFIED AND INTERVENTIONS INITIATED TO ENABLE PATIENT TO UNDERSTAND AND MANAGE FEELINGS THROUGHOUT EPISODE. Goal Provider Goal - PATIENT/CAREGIVER WILL VERBALIZE/DEMONSTRATE MANAGEMENT OF CARDIAC DISEASE PROCESS AND EXACERBATIONS WILL BE IDENTIFIED AND PROMPTLY REPORTED THROUGHOUT THE CERTIFICATION PERIOD. Goal Provider Goal - EXACERBATIONS OF GASTROINTESTINAL DISEASE WILL BE PROMPTLY IDENTIFIED AND INTERVENTIONS IMPLEMENTED TO MINIMIZE RISKS TO PATIENT BY END OF EPISODE. Goal Provider Goal - PATIENT/CAREGIVER WILL VERBALIZE/DEMONSTRATE MANAGEMENT OF RESPIRATORY DISEASE PROCESS. CHANGES IN RESPIRATORY STATUS WILL BE IDENTIFIED AND REPORTED TO PHYSICIAN FOR PROMPT INTERVENTION THROUGHOUT THE CERTIFICATION PERIOD. Goal Provider Goal - PATIENT/CAREGIVER WILL VERBALIZE SIGNS AND SYMPTOMS OF EXACERBATION OF HYPOTHYROIDISM TO REPORT TO NURSE/PHYSICIAN THROUGHOUT THE CERTIFICATION PERIOD. Goal Provider Goal - CHANGES IN NEUROLOGIC STATUS WILL BE IDENTIFIED AND REPORTED TO THE PHYSICIAN FOR PROMPT INTERVENTION OF ASSOCIATED RISK. PATIENT/CAREGIVER WILL VERBALIZE/DEMONSTRATE APPROPRIATE SAFETY MEASURES TO PREVENT INJURY BY THE END OF THE CERTIFICATION PERIOD. Goal Provider Goal - PATIENT/CAREGIVER WILL VERBALIZE/DEMONSTRATE THE ABILITY TO MANAGE CIRCULATORY DISEASE PROCESS AND EXACERBATIONS WILL BE IDENTIFIED FOR EARLY INTERVENTION THROUGHOUT THE CERTIFICATION PERIOD. Goal Provider Goal - A PHYSICAL THERAPY EVALUATION TO BE COMPLETED WITH RECOMMENDATIONS AND/OR WRITTEN PLAN OF TREATMENT ESTABLISHED FOR PHYSICIANS SIGNATURE. Goal Provider Goal - PATIENT/CAREGIVER WILL VERBALIZE/DEMONSTRATE SEIZURE PRECAUTIONS AND CARE OF PATIENT TO PROMOTE SAFETY AND PREVENT INJURY BY THE END OF THE CERTIFICATION PERIOD. Goal Provider Goal - PATIENT/CAREGIVER WILL DEMONSTRATE COMPLIANCE WITH TREATMENT REGIME AND VERBALIZE SIGNS AND SYMPTOMS TO REPORT WELL POSSIBLE COMPLICATIONS OF CVA BY END OF EPISODE. Goal Provider Goal - PATIENT/CAREGIVER WILL VERBALIZE UNDERSTANDING OF MUSCULOSKELETAL DISEASE INCLUDING SIGNS AND SYMPTOMS, MANAGEMENT, AND PRESCRIBED TREATMENT REGIMEN BY END OF EPISODE. Goal Provider Goal - PATIENT/CAREGIVER WILL UTILIZE VIRTUAL VISITS TO ACHIEVE GOALS OUTLINED ON THE PLAN OF CARE. PATIENT WILL HAVE SUPPORT MEASURES ESTABLISHED TO PREVENT HOSPITALIZATION AND PATIENT/CAREGIVER WILL VERBALIZE/DEMONSTRATE METHODS TO REDUCE AVOIDABLE HOSPITALIZATION THROUGHOUT THE CERTIFICATION PERIOD. Goal Provider Goal - PATIENT WILL HAVE SUPPORT MEASURES ESTABLISHED TO PREVENT HOSPITALIZATION AND ED USE AND PATIENT/CAREGIVER WILL VERBALIZE/DEMONSTRATE METHODS TO REDUCE AVOIDABLE HOSPITALIZATION AND ED USE BY END OF EPISODE. Goal Provider Goal - PATIENT/CAREGIVER WILL VERBALIZE UNDERSTANDING OF DISCHARGE PLANNING INSTRUCTIONS BY DATE OF DISCHARGE. Goal Provider Goal - PATIENT/CAREGIVER WILL VERBALIZE/DEMONSTRATE EFFECTIVE HOME SAFETY AND FALL PREVENTION STRATEGIES THROUGHOUT CERTIFICATION PERIOD. Goal Provider Goal - PATIENT/CAREGIVER WILL DEMONSTRATE UNDERSTANDING OF PHARMACOLOGIC AND NONPHARMACOLOGIC PAIN CONTROL MEASURES AND PATIENT WILL HAVE IMPROVEMENT IN PAIN INTERFERING WITH ACTIVITY EVIDENCED BY PAIN CONTROLLED AT LEVEL OF 7 OR LESS BY END OF CERTIFICATION PERIOD. Goal Provider Goal - PATIENT/CAREGIVER WILL VERBALIZE UNDERSTANDING OF PRESSURE ULCER PREVENTION BY END OF THE EPISODE. Goal Provider Goal - PHYSICAL THERAPY EVALUATION TO BE COMPLETED WITH RECOMMENDATIONS AND/OR WRITTEN TREATMENT PLAN OF CARE ESTABLISHED FOR THE PHYSICIANS SIGNATURE PATIENT/CAREGIVER VERBALIZES UNDERSTANDING OF THE INITIAL BEST PRACTICE RECOMMENDATIONS. PHYSICIAN TO BE NOTIFIED APPROPRIATE FOR ANY CHANGES OR COMPLICATIONS THROUGHOUT THE CERTIFICATION PERIOD. OCCUPATIONAL THERAPY EVALUATION TO BE COMPLETED WITH RECOMMENDATIONS AND/OR WRITTEN TREATMENT PLAN OF CARE ESTABLISHED FOR THE PHYSICIANS SIGNATURE. PATIENT/CAREGIVER WILL PERFORM THERAPEUTIC EXERCISE/S AND DEMONSTRATE PARTICIPATION IN A HOME PROGRAM. PATIENT/CAREGIVER WILL DEMONSTRATE SAFE TRANSFERS USING APPROPRIATE ASSISTIVE DEVICE, BODY MECHANICS AND EQUIPMENT. PATIENT/CAREGIVER WILL DEMONSTRATE IMPROVED GAIT TECHNIQUES TO MINIMIZE RISK OF INJURY. PATIENT/CAREGIVER WILL DEMONSTRATE/VERBALIZE UNDERSTANDING OF RECOMMENDATIONS TO INCREASE SAFETY IN THE HOME AND FALL PREVENTION. PATIENT/CAREGIVER WILL VERBALIZE/DEMONSTRATE UTILIZATION OF TOOLS ASSOCIATED WITH THE [facility] [employer] SPECIAL[employer] PROGRAM PATIENT/CAREGIVER WILL DEMONSTRATE IMPROVED BALANCE AND REDUCE THE RISK OF FALLS AND INJURY. PATIENT WILL DEMONSTRATE DECREASED DIZZINESS WITH IMPROVED BALANCE TO REDUCE THE RISK OF FALLS AND INJURY. Goal Provider Goal - OT EVALUATION ONLY (12/26/23) PATIENT IS AN 88 YEAR OLD FEMALE REFERRED TO OCCUPATIONAL THERAPY SERVICES AFTER RECENT HOSPITALIZATION DUE TO LEFT FACIAL DROOP, LEFT UPPER EXTREMITY WEAKNESS AND SIGNS OF APHASIA. 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 PATIENT WAS STABILIZED AND DISCHARGED HOME UNDER THE CARE FAMILY. PAST MEDICAL HISTORY SIGNIFICANT FOR : H/O TIA, HYPOTHYROIDISM, GERD, MIGRAINE HEADACHES, VITAMIN DEFICIENCY, SEIZURE DISORDER, HYPERTENSION, H/O BILATERAL TOTAL KNEE REPLACEMENTS, UTI, T12 VERTEBRAL FRACTURE, ANXIETY, H/O LE DVT. PRIOR LEVEL OF FUNCTION: PATIENT LIVES IN 2 STORY HOME WITH DAUGHTER MONICA (WORKS FROM HOME) PATIENT'S BEDROOM AND SHOWER ON 2ND FLOOR WITH 14 STEPS. PATIENT ABLE TO PERFORM SPONGE BATHING AND DRESSING INDEPENDENTLY AFTER CLOTHING LAID OUT. DAUGHTER AND HER PERFORM IADLS. PATIENT'S SON AND [id number] HELP IN CARE. CURRENT LEVEL OF FUNCTION: PATIENT SEEN IN PRESENCE OF DAUGHTER FOR OT EVALUATION. SITTING COMFORTABLY ON THE COUCH UPON THERAPISTS ARRIVAL. PATIENT WAS ABLE TO DEMONSTRATE [id number] TRANSFER INDEPENDENCE, TOILET TRANSFER INDEPENDENTLY. SHE AMBULATED WITH THE USE OF HER ROLLATOR THROUGHOUT THE HOME WITHOUT DIFFICULTY. SHE WAS ABLE TO DON AND DOFF HER SHOES INDEPENDENTLY. ABLE TO FOLLOW SIMPLE VERBAL INSTRUCTION, HOWEVER DIFFICULTY EXPRESSING RESPONSES OR NEEDS SHE PRESENTS WITH SYMPTOMS OF EXPRESSIVE APHASIA. PATIENT OFFERS NO COMPLAINTS OF PAIN. DAUGHTER REPORTS SHE IS ABLE TO DRESS HERSELF PART OF HER NORMAL MORNING ROUTINE IF CLOTHING HAS LAID OUT FOR HER. SHE IS SPONGE BATHING AT THIS TIME. DAUGHTER IS ASSISTING WITH SHOWERS UNTIL PATIENT'S SON'S PUT IN A SHOWER STALL ON THE FIRST FLOOR FOR HER TO USE. THIS IS IN THE WORKS. IADLS DEPENDENT ON DAUGHTER AND SON-IN-LAW TO BE COMPLETED WELL PET CARE. SHE DEMONSTRATES WITHIN FUNCTIONAL LIMITS RANGE OF MOTION WITH GOOD STRENGTH THROUGHOUT BILATERALLY OF HER UPPER EXTREMITIES TO MEET BASIC NEEDS. AT THIS TIME RECOMMENDATION THAT PATIENT FOLLOW UP WITH SPEECH THERAPY OUTPATIENT FOR THE ASSESSMENT THAT THEY CANCELED DUE TO HER REBOUNDING AFTER LAST EPISODE, BUT PATIENT HAS HAD ANOTHER EPISODE, AND DIFFICULTY WITH SPEECH AGAIN. DAUGHTER WILL FOLLOW UP ON THIS, NEUROLOGIST WAS NOT ABLE TO OFFER ANY ADDITIONAL DIAGNOSIS OR RECOMMENDATIONS AFTER VISIT ON 12/19. ASSESSMENT/POC: OCCUPATIONAL THERAPY EVALUATION COMPLETED TODAY WITH NO FURTHER SKILLED OT INDICATED. PATIENT IS ABLE TO PERFORM BASIC FUNCTIONAL TASKS INCLUDING TRANSFERS ON AND OFF SEATED SURFACES ON AND OFF THE TOILET WITHOUT DIFFICULTY. SHE ABLE TO COMPLETE BASIC ADLS OF DRESSING HERSELF AND TOILETING HERSELF. AT THIS TIME THE MOST PRESSING ISSUE IS HER ABILITY TO COMMUNICATE. STRONGLY RECOMMEND PATIENT SEEK SPEECH THERAPY OUTPATIENT EVALUATION FOR ASSISTANCE. DAUGHTER VERBALIZED UNDERSTANDING AND WILL FOLLOW UP THEY HAD AN APPOINTMENT PREVIOUSLY SCHEDULED HOWEVER DUE TO HER REBOUNDING THEY CANCEL THAT. MD NOTIFIED OF OT EVALUATION ONLY THIS DATE. PATIENT AND DAUGHTER IN AGREEMENT WITH OT EVAL ONLY THIS DATE. Reason for Visit INDEPENDENT WITH USE OF ASSISTIVE DEVICE Encounters Start Date/Time End Date/Time Encounter Type Admission Type Attending [facility] Care Department Encounter ID Discharge Date Discharge Status Discharge Condition Discharge Reason Percent Goals Met 2023-12-06 00:00:00 2024-01-30 00:00:00 Outpatient [facility]ITO [facility] [id number] 2024-01-30 00:00:00 DISCHARGE TO HOME OR SELF CARE INDEPENDEN T WITH USE OF ASSISTIVE DEVICE GOALS MET ( ONLY) 97.83
[2024-03-15 11:17] LABS: Venous Blood Gas Refer to POC result
[2024-03-15 11:20] LABS: MANUAL DIFF FLAG NO
[2024-03-15 11:22] LABS: Basophils Absolute Auto 0.1 X10*3/uL (0.0-0.2); Basophils Percent Auto 1.2 % (0-2); Eosinophils Absolute Auto 0.1 X10*3/uL (0.0-0.4); Eosinophils Percent Auto 2.8 % (0-4); Hematocrit 34.6 % (37.0-47.0); Hemoglobin 12.1 g/dl (12.0-16.0); Imm Gran Abs Auto 0.01 X10*3/uL (0.00-0.03); Imm Gran Pct Auto 0.2 % (0.0-0.4); Lymphocytes Absolute Auto 0.5 X10*3/uL (1.2-4.9); Lymphocytes Percent Auto 11.2 % (20-40); Mean Corpuscular Hemoglobin 31.1 pg (27.0-33.0); Mean Corpuscular Volume 88.9 fL (80.0-98.0); Mean Platelet Volume 10.2 fL (9.4-12.3); Monocytes Absolute Auto 0.4 X10*3/uL (0.1-1.2); Monocytes Percent Auto 8.6 % (2-11); Neutrophils Absolute Auto 3.3 x10*3/uL (2.0-8.3); Platelet Count 142 X10*3/uL (160-400); Red Blood Count 3.89 X10*6/uL (4.20-5.50); Red Cell Distribution Width 12.1 % (11.0-16.0); White Blood Count 4.3 X10*3/uL (4.8-10.8)
[2024-03-15 11:23] LABS: VBG Base Excess 2.5 mmol/L; VBG HCO3 26 mmol/L (22-26); VBG pCO2 39 mmHg; VBG pH 7.44 (7.32-7.43); VBG pO2 121 mmHg
[2024-03-15 11:50] LABS: B Type Natriuretic Peptide 39 pg/mL (<100)
[2024-03-15 12:01] LABS: Influenza A PCR NEGATIVE (Negative); Influenza B PCR NEGATIVE (Negative); Resp Syncy Virus RNA Qual PCR NEGATIVE (Negative); SARS COV2 PCR INHOUSE NEGATIVE (Negative)
[2024-03-15 12:13] LABS: Alanine Aminotransferase 39 U/L (0-31); Albumin Level 4.3 g/dL (3.5-5.0); Alkaline Phosphatase 76 U/L (39-117); Anion Gap 13 (12-20); Aspartate Amino Transferase 33 U/L (5-31); Bilirubin Direct 0.1 mg/dL (0.0-0.5); Bilirubin Total 0.4 mg/dL (0.0-1.0); Blood Urea Nitrogen 25 mg/dL (9-16); Calcium 9.1 mg/dL (8.4-10.2); Carbon Dioxide 29 mmol/L (22-29); Chloride 100 mmol/L (96-108); Creatinine Clr Calc Pharmacy 24.4; Estimated Glomerular Filt Rate 38; Glucose Random 116 mg/dL (60-115); Lipase 39 U/L (8-78); Magnesium 2.3 mg/dL (1.6-2.6); Potassium 3.8 mmol/L (3.3-5.1); Sodium 138 mmol/L (135-145); Total Protein 7.8 g/dL (6.5-8.0)
[2024-03-15 12:14] VITALS: BP 189/79; PULSE 67; RESP 11; TEMP 36.4; O2SAT 99
[2024-03-15 12:51] LABS: Lactic Acid 1.6 mmol/L (0.5-2.0)
[2024-03-15 12:58] LABS: Appearance Urine Turbid; Color Urine Yellow; Glucose Urine UA Negative (Negative); Leukocyte Esterase Urine Large (3+) (Negative); Nitrite Urine Negative (Negative); PH 7.5 (5.0-9.0); UMIC TRIGGER UACC YES; Urine Blood Trace (Negative); Urine Ketones Negative (Negative); Urine Protein Trace mg/dL (Neg-Trace)
[2024-03-15 13:10] LABS: Bacteria Urine 4+ (None Seen); Hyaline Casts Urine 0-2 /LPF (0-2); RBC Urine 0-2 /HPF (0-2); Squamous Epithelial Cell Urine >20 /HPF (0-2); UACC Culture Trigger YES; WBC Urine >50 /HPF (0-5)
[2024-03-15 13:13] LABS: Troponin-I High Sensitivity 2.9 ng/L (<3.5-17.0)
[2024-03-15] MEDS: 0.9 % Sodium Chloride 500 ML IV (13:52)
[2024-03-15] MEDS: cefTRIAXone sodium 1 GM VIAL IVPUSH (13:53)
[2024-03-15 15:16] VITALS: BP 180/72; PULSE 65; RESP 14; TEMP 36.4; O2SAT 100
== END 2024-03-15 15:17 | disposition home or self-care (01) ==
PROVIDERS: Emergency Provider Emergency Medicine; PCP Internal Medicine
DX: N39.0 Urinary tract infection, site not specified (principal); R53.1 Weakness; I10 Essential (primary) hypertension; E78.00 Pure hypercholesterolemia, unspecified; K21.9 Gastro-esophageal reflux disease without esophagitis; E03.9 Hypothyroidism, unspecified; J45.909 Unspecified asthma, uncomplicated; Z86.718 Personal history of other venous thrombosis and embolism; Z86.73 Personal history of transient ischemic attack (TIA), and cerebral infarction without residual deficits; Z79.82 Long term (current) use of aspirin; Z79.899 Other long term (current) drug therapy; Z03.818 Encounter for observation for suspected exposure to other biological agents ruled out
CPT/HCPCS: 0241U; 36415; 51701; 70450; 71045; 80048; 80076; 81001; 82550; 82803; 83605; 83690; 83735; 83880; 84484; 85025; 87040; 87086; 87147; 93005; 96361; 96374; 99284; 99285; J0696

== ENCOUNTER → 2024-03-15 10:31 | Outpatient (BNV) | payer MEDICARE, SELFPAY | PROVIDERS: Emergency Provider Emergency Medicine; PCP Internal Medicine; Visit Provider Internal Medicine Cardiovascular Disease | DX: I44.0 Atrioventricular block, first degree (principal); I45.10 Unspecified right bundle-branch block | CPT/HCPCS: 93010 ==

== ENCOUNTER 2024-04-21 08:52 | Outpatient (REF) | payer MEDICARE, SELFPAY ==
[2024-04-21 11:37] LABS: Appearance Urine Cloudy; Color Urine Yellow; Glucose Urine UA Negative (Negative); Leukocyte Esterase Urine Large (3+) (Negative); Nitrite Urine Negative (Negative); PH 7.5 (5.0-9.0); UMIC TRIGGER UACC YES; Urine Blood Negative (Negative); Urine Ketones Negative (Negative); Urine Protein Negative (Neg-Trace)
[2024-04-21 11:44] LABS: Bacteria Urine 1+ (None Seen); RBC Urine 0-2 /HPF (0-2); UACC Culture Trigger YES; WBC Urine 21-50 /HPF (0-5)
== END 2024-04-21 08:53 | disposition home or self-care (01) ==
LOC: HO.LNP 08:52
PROVIDERS: Visit Provider Internal Medicine
DX: R30.0 Dysuria (principal)
CPT/HCPCS: 81001; 87086

== ENCOUNTER 2024-05-05 10:53 | Outpatient (AMB) | payer MEDICARE, SELFPAY ==
[2024-05-05 11:08] VITALS: BP 144/78; PULSE 74; O2SAT 94; BMI 25.0
--- NOTE | 2024-05-05 11:08 | A.OFFPC_ITS ---
Vital Signs 3 05/05/24 11:08 Height 5 ft Weight 128 lb BMI 25.0 BP 144/78 H Blood Pressure Location Lt brachial Position Sitting Pulse 74 Pulse Source Pulse Oximeter Pulse Oximetry (%) 94 Oxygen Delivery Method Room Air Intake Visit Reasons: expressive aphasia Allergies hydrochlorothiazide Allergy (Unknown, Verified 05/05/24 11:09) Electrolyte abnormality oxycodone [OXYCODONE] Allergy (Unknown, Verified 05/05/24 11:09) VOMITTING,CONFUSION amlodipine Adverse Reaction (Intermediate, Verified 05/05/24 11:09) leg swelling lisinopril Adverse Reaction (Intermediate, Verified 05/05/24 11:09) cough losartan Adverse Reaction (Intermediate, Verified 05/05/24 11:09) hyponatremia Tobacco use date assessed: 05/05/24 Fall risk assessment: No Falls in past year Last assessed Fall Risk: 05/05/24 Dental Screening Dental Screen Date: 05/05/24 Did you have a dental visit in the last 12 months?: Yes Did you have a dental problem in the last 6 months where you did not have access to dental care?: No Was dental information given to patient?: Patient has dentist HPI expressive aphasia 2 HPI0 Details The patient is an 88-year-old female presenting with complaints of shoulder lumps and hypertension management. The shoulder lumps, described as soft tissue masses, have been present for years; however, new growth was noticed approximately one month ago. The masses are painful upon palpation, and the patient reports a history of similar lesions that were non-painful and could be lipomas. The patient also discusses her condition of hypertension, previously managed on a low dose of metoprolol. Recent measurements have documented elevated blood pressure readings, prompting a consideration to increase the dosage. Additionally, the patient reports nasal congestion, sneezing, and runny nose symptoms, for which she has been self-managing with diphenhydramine, though it causes somnolence. She has a history of stroke with white matter changes that resulted in various cognitive impairments, including a loss of reading ability post-event. The patient is observed to be compliant with vaccination schedules, including recent flu and pneumonia vaccines, and she is considering RSV vaccination. 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 Facial droop Cerebral infarction Left leg DVT Upper respiratory infection COVID-19 virus infection Burning with urination Buttock pain Status post fall Dog bite of right arm Adult general medical exam Screening for diabetes mellitus Impacted cerumen of both ears Facial lesion Overweight (BMI 25.0-29.9) Hip osteoarthritis T12 vertebral fracture Reactive airways dysfunction syndrome Pneumonia Cholelithiasis CVA (cerebral vascular accident) Obesity (BMI 30-39.9) Hypercholesterolemia Vitamin D deficiency Hypothyroid Seizure disorder Anxiety Gout GERD (gastroesophageal reflux disease) Psoriatic arthritis Hypertension Surgical History History of Mohs surgery for squamous cell carcinoma of skin History of cataract surgery History of colonoscopy History of knee replacement procedure of right knee History of left knee replacement Family History Father No problems noted. Mother Acute CVA (cerebrovascular accident) Diabetes Brother Cancer Daughter History of nephrectomy Son Heart disease Social History Household Members: Family Household Members Other:: Daughter (Katie) and son-in-law Housing: House Alcohol intake: never Patient Tobacco Use Status: Never used Tobacco Tobacco use type: Cigarette e-Cigarette/Vaping Use: Never Used Second Hand Smoke Exposure: No Advance Directives Date on File: 12/04/23 service: No Current occupational status: retired Cognitive needs: No Hearing needs: Yes (hearing aides) Vision needs: No Questionnaire PHQ-9 Over the last 2 weeks, how often have you been bothered by any of the following problems? 1. Little interest or pleasure in doing things: more than half the days 2. Feeling down, depressed, or hopeless: more than half the days 3. Trouble falling or staying asleep, or sleeping too much: not at all 4. Feeling tired or having little energy: several days 5. Poor appetite or overeating: not at all 6. Feeling bad about yourself - or that you are a failure or have let yourself or your family down: not at all 7. Trouble concentrating on things, such as reading the newspaper or watching television: several days 8. Moving or speaking so slowly that other people could have noticed. Or the opposite - being so fidgety or restless that you have been moving around a lot more than usual: several days 9. Thoughts that you would be better off or of hurting yourself in some way: not at all Total score: 7 Depression Screening Interpretation: Positive Depression Screening Done: Yes 33793 - PHQ-9 Billing: Yes Source: Developed by Drs. Satish Summers, Radha Honeycutt, Tani Gonzales and colleagues, with an educational milton from [employer]. Thrive Questionnaire Date Thrive assessed: 05/05/24 I am a: Parent/Caregiver What is your living situation today?: I have a steady place to live Within the past 12 months, did the food you bought not last and you didn't have the money to get more?: Never true Within the past 12 months, did you worry whether your food would run out before you got money to buy more?: Never true Do you have trouble paying for medicines?: No Do you have trouble getting transportation to medical appointments?: No Do you have trouble paying your heating and electricity bill?: No Do you have trouble taking care of your child, family member or friend?: No Do you have trouble with day-to-day activities such as bathing, preparing meals, shopping, managing finances, etc.?: No Are you currently unemployed and looking for a job?: No Are you interested in more education?: No Currently or been in a relationship where the following occur: No concerns reported THRIVE Score: 0 AUDIT C Alcohol Use Questionnaire (AUDIT-C) 1. How often do you have a drink containing alcohol?: Never 3. How often do you have six or more drinks on one occasion?: Never Total Score: 0 Score Reviewed/Action Taken: No HAZEL-7 AMB Questionnaire HAZEL-7 Date HAZEL - 7 assessed: 05/05/24 Feeling nervous, anxious, or on edge: 1 = Several days Not being able to stop or control worryin = Several days Worrying too much about different things: 1 = Several days Trouble relaxin = Several days Being so restless that it is hard to sit still: 0 = Not at all Becoming easily annoyed or irritable: 0 = Not at all Feeling afraid as if something awful might happen: 0 = Not at all Total HAZEL-7 score (0-4 normal; 5-9 mild; 10-14 moderate; 15-21 severe): 4 Source: Developed by Drs. Satish Summers, Radha Honeycutt, Tani Gonzales and colleagues, with an educational milton from [employer]. Physical exam (Primary Care) Vital Signs: Last Vital Signs Pulse 74 05/05/24 11:08 BP 144/78 H 05/05/24 11:08 Pulse Ox 94 05/05/24 11:08 Oxygen Delivery Method Room Air 05/05/24 11:08 BMI result Body Mass Index 25.0 Tobacco/Smoking Status: Tobacco use Status Tobacco use date assessed 05/05/24 05/05/24 11:15 Patient Tobacco Use Status Never used Tobacco 05/05/24 11:15 Tobacco use type Cigarette 05/05/24 11:15 e-Cigarette/Vaping Use Never Used 05/05/24 11:15 PHQ-9: PHQ-9 Score PHQ-9: Total score 7 05/05/24 11:27 Depression Screening Interpretation: Positive Thrive Assessment: Date of Thrive Assessment Date Thrive assessed 05/05/24 05/05/24 11:15 Currently or been in a relationship where the following occur: No concerns reported Const General: alert; No acute distress Eyes Conjunctivae: conjunctivae normal Neck Neck images: 2 1. 3 cm rounded mass x 2 R shoulder , no redness, mild tenderness 2. Resp Auscultation: clear to auscultation bilaterally Cardio Rate: regular rate Rhythm: regular rhythm GI Inspection: Yes normal to inspection Extrem General: Yes normal to inspection and No edema Coding Level of Care Code Est Pt Level 4 (75198) Diagnoses Primary hypertension I10 Hypertension type: primary hypertension Acquired hypothyroidism E03.9 Hypothyroidism type: acquired Hypercholesterolemia E78.00 Gastroesophageal reflux disease without esophagitis K21.9 Esophagitis presence: without esophagitis Shoulder mass R22.30 Additional Codes PHQ-9 - 52716 - PHQ-9 Billing: Yes ([id number]) Assessment & Plan Assessment & Plan (1) Hypertension: Code(s): I10 - Essential (primary) hypertension Category: Medical Qualifiers: Hypertension type: primary hypertension Qualified Code(s): I10 - Essential (primary) hypertension (2) Hypothyroid: Code(s): E03.9 - Hypothyroidism, unspecified Category: Medical Qualifiers: Hypothyroidism type: acquired Qualified Code(s): E03.9 - Hypothyroidism, unspecified (3) Hypercholesterolemia: Code(s): E78.00 - Pure hypercholesterolemia, unspecified Category: Medical (4) GERD (gastroesophageal reflux disease): Comment: EGD Dr. Mireles April 2018 erosive esophagitis Code(s): K21.9 - Gastro-esophageal reflux disease without esophagitis Category: Medical Qualifiers: Esophagitis presence: without esophagitis Qualified Code(s): K21.9 - Gastro-esophageal reflux disease without esophagitis (5) Hypertension: Code(s): I10 - Essential (primary) hypertension Category: Medical Qualifiers: Hypertension type: essential hypertension Qualified Code(s): I10 - Essential (primary) hypertension Plan: continue to monitor (6) Shoulder mass: Comment: x 2 Right Code(s): R22.30 - Localized swelling, mass and lump, unspecified upper limb Category: Medical Plan - Adjust hypertension management. Increase metoprolol dosage to 50 mg once daily to better control elevated blood pressure based on recent readings. - Recommend surgical evaluation for possible excision of painful shoulder lumps, as they may be symptomatic lipomas. - For nasal congestion and rhinorrhea, recommend switching to non-sedating antihistamines such as Claritin Loratadine) to alleviate symptoms without sedation. - Continue monitoring and maintaining current vaccination schedule and discuss RSV vaccine availability. - Encourage regular hydration and mobility to prevent additional cardiovascular concerns and manage ongoing symptoms. Orders: Referrals 2 General Surgery Referral R22.30 - Localized swelling, mass and lump, unspecified upper limb Medications: Changed 2 From metoprolol succinate ER 25 mg PO DAILY 30 tabs 3RF I10 - Essential (primary) hypertension To metoprolol succinate ER 50 mg PO DAILY 90 tabs 3RF I10 - Essential (primary) hypertension Refilled 2 loratadine 10 mg PO DAILY 30 tabs 5RF R05 - Cough
--- OUTSIDE RECORDS SUMMARY | 2024-05-05 11:58 | XMS_ITS | Clinical Summary ---
Author Organization [facility] Facility Address [address] [address] Care Team Providers Care Elevator Service Technician Name Role Phone Marie Villanueva MD Primary Care Provider [phone] Social History Tobacco Use Types Packs/Day Years Used Date Smoking Tobacco: Never Assessed Comments Unknown Sex and Gender Information Value Date Recorded Sex Assigned at Not on file Legal Sex Female 4:55 PM EST Gender Identity Not on file Sexual Orientation Not on file Plan of Treatment Health Maintenance Due Date Last Done Comments Pneumococcal Vaccine: 65+ Ye ars (1 of 1 - PCV) 2001 Influenza Vaccine (#1) 2023 Hepatitis B Vaccine Aged Out No longe r eligible based on patient's age to complete this topic Insurance MEDICARE [facility] MEDICARE [facility] Care Teams Elevator Service Technician Relationship Specialty Start Date End Date Marie Villanueva MD [facility] [address] [place], [place] PCP - General 04/12/20
== END 2024-05-05 11:44 | disposition home or self-care (01) ==
PROVIDERS: PCP Internal Medicine; Visit Provider Internal Medicine
DX: I10 Essential (primary) hypertension (principal); E03.9 Hypothyroidism, unspecified; E78.00 Pure hypercholesterolemia, unspecified; K21.9 Gastro-esophageal reflux disease without esophagitis; R22.30 Localized swelling, mass and lump, unspecified upper limb

== ENCOUNTER → 2024-05-05 10:53 | Outpatient (BNVA) | payer MEDICARE, SELFPAY | PROVIDERS: PCP Internal Medicine; Visit Provider Internal Medicine | DX: I10 Essential (primary) hypertension (principal); E03.9 Hypothyroidism, unspecified; E78.00 Pure hypercholesterolemia, unspecified; K21.9 Gastro-esophageal reflux disease without esophagitis; R22.30 Localized swelling, mass and lump, unspecified upper limb | CPT/HCPCS: 96127; 99212 ==

== ENCOUNTER 2024-05-13 09:35 | Outpatient (AMB) | payer MEDICARE, SELFPAY ==
--- NOTE | 2024-05-13 09:35 | MHC.OFFVIS ---
Vital Signs 05/13/24 09:43 Height 5 ft Weight 125 lb BMI 24.4 BP 188/95 H Blood Pressure Location Lt brachial Position Sitting Pulse 74 Intake Visit Reasons: Shoulder mass x2 Intake Note: Patient referred by pcp Dr. Villanueva for shoulder mass X2 on Rt superior shoulder. Present yrs. 2nd concern: lipoma on lt shoulder. Patient c/o: painful when pressed on. Facility Engineer Required: No Accompanied by: son Paul Allergies hydrochlorothiazide Allergy (Unknown, Verified 05/13/24 09:42) Electrolyte abnormality oxycodone [OXYCODONE] Allergy (Unknown, Verified 05/13/24 09:42) VOMITTING,CONFUSION amlodipine Adverse Reaction (Intermediate, Verified 05/13/24 09:42) leg swelling lisinopril Adverse Reaction (Intermediate, Verified 05/13/24 09:42) cough losartan Adverse Reaction (Intermediate, Verified 05/13/24 09:42) hyponatremia HPI Comments Details: Patient was an elderly female presents here with her son. She has soft tissue cyst/mass involving right shoulder x2 and left shoulder x1. She has no such lesions elsewhere. 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 Facial droop Cerebral infarction Left leg DVT Upper respiratory infection COVID-19 virus infection Burning with urination Buttock pain Status post fall Dog bite of right arm Adult general medical exam Screening for diabetes mellitus Impacted cerumen of both ears Facial lesion Overweight (BMI 25.0-29.9) Hip osteoarthritis T12 vertebral fracture Reactive airways dysfunction syndrome Pneumonia Cholelithiasis CVA (cerebral vascular accident) Obesity (BMI 30-39.9) Hypercholesterolemia Vitamin D deficiency Hypothyroid Seizure disorder Anxiety Gout GERD (gastroesophageal reflux disease) Psoriatic arthritis Hypertension Surgical History History of Mohs surgery for squamous cell carcinoma of skin History of cataract surgery History of colonoscopy History of knee replacement procedure of right knee History of left knee replacement Family History Father No problems noted. Mother Acute CVA (cerebrovascular accident) Diabetes Brother Cancer Daughter History of nephrectomy Son Heart disease Social History Household Members: Family Household Members Other:: Daughter (Katie) and son-in-law Housing: House Alcohol intake: never Patient Tobacco Use Status: Never used Tobacco Tobacco use type: Cigarette e-Cigarette/Vaping Use: Never Used Second Hand Smoke Exposure: No Advance Directives Date on File: 12/04/23 service: No Current occupational status: retired Cognitive needs: No Hearing needs: Yes (hearing aides) Vision needs: No Physical Exam Vital Signs: Last Vital Signs Pulse 74 05/13/24 09:43 BP 188/95 H 05/13/24 09:43 BMI result Body Mass Index 24.4 Const Other: Very pleasant elderly frail appearing female. Very conversant. Occasionally confused Skin Other: Patient has 2 sebaceous cyst/lipoma type masses involving her right shoulder each measuring roughly 3 x 2 cm and a single 1 on the left measuring 3 x 2 cm. No cervical periclavicular or axillary adenopathy bilaterally. Assessment & Plan Assessment & Plan (1) Shoulder mass: Comment: x 2 Right Code(s): R22.30 - Localized swelling, mass and lump, unspecified upper limb Category: Medical (2) Mass of skin of left shoulder: Code(s): R22.32 - Localized swelling, mass and lump, left upper limb Category: Surgical Plan I discussed therapeutic options with the patient and her son which include observation or excision of these cysts/masses. At present, patient wishes to be treated conservatively. Should they become more symptomatic or enlarge, she will contact us. Otherwise she will follow up p.r.n.. All questions answered. Coding Level of Care Code New Pt Level 4 (07341) Diagnoses Shoulder mass R22.30 Mass of skin of left shoulder R22.32
[2024-05-13 09:43] VITALS: BP 188/95; PULSE 74; BMI 24.4
== END 2024-05-13 09:48 | disposition home or self-care (01) ==
PROVIDERS: PCP Internal Medicine; Visit Provider Surgery
DX: R22.30 Localized swelling, mass and lump, unspecified upper limb (principal); R22.32 Localized swelling, mass and lump, left upper limb
CPT/HCPCS: 99204

== ENCOUNTER → 2024-05-13 09:35 | Outpatient (BNVA) | payer MEDICARE, SELFPAY | PROVIDERS: PCP Internal Medicine; Visit Provider Surgery | DX: R22.30 Localized swelling, mass and lump, unspecified upper limb (principal); R22.32 Localized swelling, mass and lump, left upper limb | CPT/HCPCS: 99202 ==

== ENCOUNTER 2024-05-17 13:43 | Emergency (ER) | payer MEDICARE, SELFPAY ==
--- NOTE | ~2024-05-17 | XR_ITS ---
CLINICAL HISTORY: pain 3 views cervical spine Comparison: CT/SR - CT CERVICAL SPINE WO IV CON - 01/28/23 23:20 EDT Findings: Stable grade 1 spondylolisthesis C3-4. Advanced degenerative changes and diffuse bony demineralization. No acute fracture or dislocation. Prevertebral soft tissues are grossly intact. IMPRESSION: No definite acute fracture in the cervical spine. This document has been electronically signed by: Xena Barahona DO on 05/17/2024 15:03:34
[2024-05-17 14:28] VITALS: BP 188/80; PULSE 73; RESP 16; TEMP 36.1; O2SAT 98; BMI 24.4
--- NOTE | 2024-05-17 14:28 | ED.GENADULT ---
HPI - General Adult General Chief complaint: Neck Pain/Injury Stated complaint: sharp neck pain Time Seen by Provider: 05/17/24 19:22 Source: patient Mode of arrival: ambulatory Limitations: no limitations History of Present Illness ED Provider: Dr. Keven Rosas HPI narrative: 88-year-old female with a history of dementia, hypertension, TIA, sciatica, high cholesterol, hypothyroidism, seizure, anxiety, GERD who presents emergency department for evaluation of left sided neck pain. Proximally 1-1/2 weeks ago the patient cleared out her closet and while she was moving stuff she injured her neck. She had neck stiffness and pain and then followed up with her PCP on 05/13/2023 (4 days prior) and at that time was having no pain. However the last 2 days the pain is come back. The patient points to her left trapezius muscle when asked to localize the pain. The pain is a sharp, twisting pain which can be severe at times, worse with movement of the head. She denied any numbness or weakness in her extremities. She denied fever, chills, nausea, vomiting. She denied loss of bowel or bladder control. Related Data Home Medications ?Medication ?Instructions ?Recorded ?Confirmed acetaminophen 500 mg tablet 1,000 mg PO DAILY PRN Pain 12/03/23 05/13/24 Previous Rx's ?Medication ?Instructions ?Recorded aspirin 81 mg tablet,delayed 81 mg PO DAILY #30 tabs 10/01/23 release low height rollator #1 ea 10/26/23 mirabegron 25 mg tablet,extended 25 mg PO DAILY #90 tabs 02/04/24 release 24 hr (Myrbetriq) omeprazole 20 mg capsule,delayed 20 mg PO BID #180 caps 04/09/24 release lorazepam 1 mg tablet 0.5 mg (1/2 x 1 mg) PO DAILY@1700 04/24/24 anxiety #45 tabs magnesium oxide 400 mg PO DAILY #90 caps 04/25/24 levetiracetam 1,000 mg tablet 1,000 mg PO BID #180 tabs 05/04/24 levothyroxine 88 mcg tablet 88 mcg PO DAILY@0600 90 days #90 05/04/24 tabs loratadine 10 mg tablet 10 mg PO DAILY #30 tabs 05/05/24 metoprolol succinate 50 mg 50 mg PO DAILY #90 tabs 05/05/24 tablet,extended release 24 hr Allergies Allergy/AdvReac Type Severity Reaction Status Date / Time hydrochlorothiazide Allergy Unknown Electrolyte Verified 05/17/24 14:30 abnormality oxycodone [OXYCODONE] Allergy Unknown VOMITTING,C Verified 05/17/24 14:30 ONFUSION amlodipine AdvReac Intermediate leg Verified 05/17/24 14:30 swelling lisinopril AdvReac Intermediate cough Verified 05/17/24 14:30 losartan AdvReac Intermediate hyponatremi Verified 05/17/24 14:30 a Review of Systems Review of Systems: Yes all other systems are reviewed and are negative PMFSH Past Medical History Medical History 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 Facial droop Cerebral infarction Left leg DVT Upper respiratory infection COVID-19 virus infection Burning with urination Buttock pain Status post fall Dog bite of right arm Adult general medical exam Screening for diabetes mellitus Impacted cerumen of both ears Facial lesion Overweight (BMI 25.0-29.9) Hip osteoarthritis T12 vertebral fracture Reactive airways dysfunction syndrome Pneumonia Cholelithiasis CVA (cerebral vascular accident) Obesity (BMI 30-39.9) Hypercholesterolemia Vitamin D deficiency Hypothyroid Seizure disorder Anxiety Gout GERD (gastroesophageal reflux disease) Psoriatic arthritis Hypertension Surgical History History of Mohs surgery for squamous cell carcinoma of skin History of cataract surgery History of colonoscopy History of knee replacement procedure of right knee History of left knee replacement Family History Family History Father No problems noted. Mother Acute CVA (cerebrovascular accident) Diabetes Brother Cancer Daughter History of nephrectomy Son Heart disease Social History Social History Household Members: Family Household Members Other:: Daughter (Katie) and son-in-law Housing: House Alcohol intake: never Patient Tobacco Use Status: Never used Tobacco Tobacco use type: Cigarette Smoked in Last 30 Days: No e-Cigarette/Vaping Use: Never Used Second Hand Smoke Exposure: No Use of substances other than those prescribed or required for medical reasons: No Advance Directives: Yes Advance Directives on File: Yes Advance Directives Date on File: 12/04/23 Do you have a plan to hurt others: No Plan service: No Current occupational status: retired Cognitive needs: No Hearing needs: Yes (hearing aides) Vision needs: No Physical Exam ED Vital Signs: Vital Signs - 24 hr 05/17/24 14:28 05/17/24 18:25 Temperature 97 F Pulse Rate 73 71 Respiratory Rate 16 16 Blood Pressure 188/80 H 197/74 H Pulse Oximetry 98 100 Oxygen Delivery Method Room Air Room Air BMI result Body Mass Index 24.4 Vital signs revealed elevated systolic blood pressures otherwise unremarkable. Exam: Head: Normocephalic and atraumatic Neck: Tenderness and spasm with palpation of the left trapezius muscle, the patient does have increased pain with touching her chin to her left shoulder. Neuro: Cranial nerves intact, strength is 5/5 and symmetric Course Course Course Narrative: RME performed by Christiana Ray PA-C. Patient is an 88 year old assigned female at presenting to the emergency department with left neck pain. Patient states when she moves her neck she gets a sharp left sided pain. Patient states that she has been dealing with this for 1.5 weeks. Detailed physical exam and review of systems are deferred to the biomedical technician. EKG and XR ordered. Patient placed back in the waiting room pending room availability and results. Medical Decision Making Medical Decision Making MDM Narrative: 88-year-old female with a history of dementia, hypertension, TIA, sciatica, high cholesterol, hypothyroidism, seizure, anxiety, GERD who presents emergency department for evaluation of left sided neck pain x1 0.5 weeks, starting after she lifted heavy objects in her closet. Pain resolved but then came back 2 days prior. Vital signs revealed an elevated systolic blood pressure otherwise unremarkable. Physical examination did reveal tenderness and spasm for left trapezius muscle with a negative neurologic exam. Differential diagnosis: ?Includes but is not limited to trapezius muscle sprain, spasm, cervical spine injury, myocardial infarction, myocardial ischemia Course: 20:24 Patient's x-rays of her cervical spine is consistent with degenerative changes appropriate for age with no acute findings. EKG was unremarkable. At this time I suspect the patient's pain is secondary to trapezius muscle sprain and I did discuss this with the patient. Patient was advised to take ibuprofen 200 mg q.6 hours as needed for pain, Tylenol 500 mg pills, 1 pill q.6 hours as needed for pain. She was advised to apply a lidocaine patch over the trapezius muscle for 12 hours and remove it overnight. She was also advised to apply ice for 15 minutes and then 1-2 hours later apply heating pad on low I had to repeat this process 3 to 4 times a day. She was given printed and verbal instructions and discharged home. Admission/Observation Consideration of admission/observation: Escalation of care including admission/observation considered (Yes) Independent Interpretation I performed an independent interpretation of an: EKG and Plain X-Ray Interpretation: My independent interpretation patient's 12 EKG done on 05/17/2024 at 14:49 hours is as follows: Sinus rhythm with a rate of 61, prolonged MT interval of 214 milliseconds consistent with a first-degree AV block, normal QRS duration QTC interval, no ST segment elevation, no ST segment depression, inverted T-wave in units 3 and V1, no PVCs, no PACs. Compared to EKG dated 03/15/2024 T-wave inversions are old, no acute changes, first-degree AV block was old. My interpretation patient's three-view cervical spine x-ray is as follows: Degenerative joint changes but no acute fracture noted by me. Radiology Impression Discussion of test interpretation with radiology: I have reviewed the radiologist's reading. Radiologist Impression: 3 views cervical spine Comparison: CT/SR - CT CERVICAL SPINE WO IV CON - 01/28/23 23:20 EDT Findings: Stable grade 1 spondylolisthesis C3-4. Advanced degenerative changes and diffuse bony demineralization. No acute fracture or dislocation. Prevertebral soft tissues are grossly intact. IMPRESSION: No definite acute fracture in the cervical spine. This document has been electronically signed by: Xena Barahona DO on 05/17/2024 15:03:34 Dictated By: Xena Barahona MD Independent Historian Clinical information obtained from an independent historian. History obtained from or confirmed by: Other (Son, Paul) Chronic Conditions Patient?s care impacted by: Hypertension Discharge Plan Discharge Clinical Impression: Strain of left trapezius muscle Qualifiers: Encounter type: initial encounter Qualified Code(s): S46.812A - Strain of other muscles, fascia and tendons at shoulder and upper arm level, left arm, initial encounter Patient Disposition: Home, Self-Care Instructions: Muscle Strain (ED) Additional Instructions: You strained the left trapezius muscle of your neck. Take ibuprofen 200 mg pills, 1 pill every 6 hours as needed for pain. Take extra-strength Tylenol 500 mg pills, 1 pill every 6 hours as needed for pain. Apply ice 15 minutes to the left side of your neck. 1-2 hours later if your still having pain apply heating pad on low for 15 minutes. You can repeat this process 3 to 4 times a day and this should help reduce the pain and spasm of your neck muscle. Place the lidocaine patch over your left trapezius muscle as demonstrated. Leave this on for 12 hours and then remove it overnight. Follow-up with your doctor in 2 days. Please return to the emergency department if your symptoms get worse or if you develop any symptoms that are concerning to you. Prescriptions: No Action (DME) low height rollator See Rx Instructions .Route .MEDSUPPLY Qty: 1 0RF Rx Instructions: As directed Myrbetriq 25 mg tablet extended release 24 hr 25 mg PO DAILY Qty: 90 2RF omeprazole 20 mg capsule,delayed release(DR/EC) 20 mg PO BID Qty: 180 2RF lorazepam 1 mg tablet 0.5 mg PO DAILY@1700 Qty: 45 0RF magnesium oxide 400 mg magnesium capsule 400 mg PO DAILY Qty: 90 1RF levetiracetam 1,000 mg tablet 1,000 mg PO BID Qty: 180 0RF levothyroxine 88 mcg tablet 88 mcg PO DAILY@0600 90 Days Qty: 90 1RF aspirin 81 mg Tablet,Delayed Release (Dr/Ec) 81 mg PO DAILY Qty: 30 0RF acetaminophen 500 mg Tablet 1,000 mg PO DAILY PRN (Reason: Pain) metoprolol succinate 50 mg tablet extended release 24 hr 50 mg PO DAILY Qty: 90 3RF loratadine 10 mg tablet 10 mg PO DAILY Qty: 30 5RF Print Language: Wolof
--- NOTE | 2024-05-17 14:29 | ECG_ITS ---
Test Reason : left sided neck pain Blood Pressure : */* mmHG Vent. Rate : 61 BPM Atrial Rate : 61 BPM P-R Int : 214 ms QRS Dur : 88 ms QT Int : 420 ms P-R-T Axes : 9 -25 10 degrees QTcB Int : 422 ms Sinus rhythm with 1st degree A-V block Minimal voltage criteria for LVH, may be normal variant ( R in aVL ) Borderline ECG When compared with ECG of 15-Mar-2024 10:38, No significant change was found Referred By: Christiana Ray Electronically Signed By: HOOD ZHAO MD
--- OUTSIDE RECORDS SUMMARY | 2024-05-17 18:14 | XMS_ITS | Clinical Summary ---
Author Organization [facility] Facility Address [address] [address] Care Team Providers Care Plaster Caster Name Role Phone Marie Villanueva MD Primary Care Provider [phone] Social History Tobacco Use Types Packs/Day Years [...] age to complete this topic Insurance MEDICARE [facility] Care Teams Plaster Caster Relationship Specialty Start Date End Date Marie Villanueva MD [facility] [address] [place], [place] PCP - General 04/12/20
--- OUTSIDE RECORDS SUMMARY | 2024-05-17 18:14 | XMS_ITS | Patient Health Record ---
Author Organization [facility] Address [address] [place] [address] Care Team Providers Care Easement Man Name Role Phone Marie Villanueva MD Primary Care Provider Satish Villagran [phone] REASON FOR REFERRAL No Information SOCIAL HISTORY Sex Assigned At : Social History Observation Description Sex Assigned At Unknown PROBLEMS Problem Type ICD Code Onset Dates Problem Status W/U Status Risk SNOMED Code Notes Problem Dysphagia (R13.10) Active confirmed Dysphagia ([id number]) PLAN OF TREATMENT No Information Insurance Providers Payer Name Payer Address Payer Phone Subscriber Number Group Number Insured Name Patient Relationship to Insured Coverage Start Date Coverage End Date MEDICARE OF [place] [address] [place] [address] [id number] JANETH WELDON Self - patient is the insured MEDEX ATTN CLAIMS [address] [place] [address] [phone] [id number] JANETH WELDON Self - patient is the insured
[2024-05-17 18:25] VITALS: BP 197/74; PULSE 71; RESP 16; O2SAT 100
[2024-05-17] MEDS: Ibuprofen 200 MG TABLET PO (20:32)
[2024-05-17] MEDS: Acetaminophen 325 MG TABLET PO (20:32)
[2024-05-17 20:33] VITALS: BP 191/110; PULSE 62; RESP 18; TEMP 36.7; O2SAT 98
[2024-05-17 20:47] VITALS: BP 191/110; PULSE 62; RESP 18; TEMP 36.7; O2SAT 98
== END 2024-05-17 20:48 | disposition home or self-care (01) ==
PROVIDERS: Emergency Provider Emergency Medicine Emergency Medical Services; PCP Internal Medicine
DX: S16.1XXA Strain of muscle, fascia and tendon at neck level, initial encounter (principal); S46.812A Strain of other muscles, fascia and tendons at shoulder and upper arm level, left arm, initial encounter; M54.2 Cervicalgia; I44.30 Unspecified atrioventricular block; R94.31 Abnormal electrocardiogram [ECG] [EKG]; Z86.73 Personal history of transient ischemic attack (TIA), and cerebral infarction without residual deficits; X50.0XXA Overexertion from strenuous movement or load, initial encounter; Y93.9 Activity, unspecified; Y92.9 Unspecified place or not applicable; Y99.8 Other external cause status
CPT/HCPCS: 72040; 93005; 99283; 99285

== ENCOUNTER → 2024-05-17 14:29 | Outpatient (BNV) | payer MEDICARE, SELFPAY | PROVIDERS: Emergency Provider Emergency Medicine Emergency Medical Services; PCP Internal Medicine; Visit Provider Internal Medicine Cardiovascular Disease | DX: I44.0 Atrioventricular block, first degree (principal) | CPT/HCPCS: 93010 ==

== ENCOUNTER → 2024-05-17 14:29 | Outpatient (BNV) | payer MEDICARE, SELFPAY | PROVIDERS: PCP Internal Medicine; Visit Provider Radiology Diagnostic Radiology | DX: M43.12 Spondylolisthesis, cervical region (principal) | CPT/HCPCS: 72040 ==

== ENCOUNTER 2024-05-28 12:15 | Outpatient (REF) | payer MEDICARE, SELFPAY ==
[2024-05-28 12:36] LABS: Appearance Urine Clear; Color Urine Yellow; Glucose Urine UA Negative (Negative); Leukocyte Esterase Urine Small (1+) (Negative); Nitrite Urine Negative (Negative); UMIC TRIGGER UACC YES; Urine Blood Negative (Negative); Urine Ketones Negative (Negative); Urine Protein Negative (Neg-Trace)
[2024-05-28 12:55] LABS: Bacteria Urine Trace (None Seen); Hyaline Casts Urine 0-2 /LPF (0-2); RBC Urine 0-2 /HPF (0-2); Squamous Epithelial Cell Urine 0-2 /HPF (0-2); UACC Culture Trigger YES; WBC Urine 0-5 /HPF (0-5)
--- OUTSIDE RECORDS SUMMARY | 2024-05-28 15:10 | XMS_ITS | Patient Health Record ---
Author Organization [facility] Address [address] [place] [address] Care Team Providers Care Investigation Division Captain Name Role Phone Marie Villanueva MD Primary Care Provider Satish Villagran [phone] REASON FOR REFERRAL No Information SOCIAL HISTORY Sex Assigned At : Social History Observation Description Sex Assigned At Unknown PROBLEMS Problem Type ICD Code Onset Dates Problem Status W/U Status Risk SNOMED Code Notes Problem Dysphagia (R13.10) Active confirmed Dysphagia ([id number]) PLAN OF TREATMENT No Information Insurance Providers Payer Name Payer Address Payer Phone Subscriber Number Group Number Insured Name Patient Relationship to Insured Coverage Start Date Coverage End Date MEDICARE OF [place] [address] [place] [address] [id number] JANETH WELDON Self - patient is the insured MEDEX ATTN CLAIMS [address] [place] [address] [id number] JANETH WELDON Self - patient is the insured
--- OUTSIDE RECORDS SUMMARY | 2024-05-28 15:10 | XMS_ITS | Clinical Summary ---
Author Organization [facility] Facility Address [address] [address] Care Team Providers Care Manager Community Name Role Phone Marie Villanueva MD Primary Care Provider [phone] Social History Tobacco Use Types Packs/Day Years [...] age to complete this topic Insurance MEDICARE [facility] MEDICARE [facility] Care Teams Manager Community Relationship Specialty Start Date End Date Marie Villanueva MD [facility] [address] [place], [place] PCP - General 04/12/20
== END 2024-05-28 12:16 | disposition home or self-care (01) ==
LOC: HO.LNP 12:15
PROVIDERS: Visit Provider Internal Medicine
DX: R41.89 Other symptoms and signs involving cognitive functions and awareness (principal); R82.90 Unspecified abnormal findings in urine
CPT/HCPCS: 81001; 87086

== ENCOUNTER 2024-07-18 09:54 | Outpatient (AMB) | payer MEDICARE, SELFPAY ==
--- NOTE | 2024-07-18 10:18 | HO.NEPHOV ---
Vital Signs 07/18/24 10:20 Height 5 ft Weight 127 lb 6 oz BMI 24.9 BP 144/80 H Blood Pressure Location Rt brachial Position Sitting Pulse 66 Pulse Source Pulse Oximeter Pulse Oximetry (%) 99 Oxygen Delivery Method Room Air Intake Visit Reasons: 6mon follow up-No Voicemail Probate Paralegal Required: No Accompanied by: Son Allergies hydrochlorothiazide Allergy (Unknown, Verified 07/18/24 10:19) Electrolyte abnormality oxycodone [OXYCODONE] Allergy (Unknown, Verified 07/18/24 10:19) VOMITTING,CONFUSION amlodipine Adverse Reaction (Intermediate, Verified 07/18/24 10:19) leg swelling lisinopril Adverse Reaction (Intermediate, Verified 07/18/24 10:19) cough losartan Adverse Reaction (Intermediate, Verified 07/18/24 10:19) hyponatremia HPI Comments Details: 88-year-old female with hypertension and H/O hyponatremia. Her BP is at goal on metoprolol. She recently had CVA and later AMS, from which she has improved. She was accompanied by her daughter. She does not have any urinary symptoms now. Her Na has been stable. She is not taking any oral urea or salt tablets. She has no SOB, weakness, edema. Her recent sodium has been stable. 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 Facial droop Cerebral infarction Left leg DVT Upper respiratory infection COVID-19 virus infection Burning with urination Buttock pain Status post fall Dog bite of right arm Adult general medical exam Screening for diabetes mellitus Impacted cerumen of both ears Facial lesion Overweight (BMI 25.0-29.9) Hip osteoarthritis T12 vertebral fracture Reactive airways dysfunction syndrome Pneumonia Cholelithiasis CVA (cerebral vascular accident) Obesity (BMI 30-39.9) Hypercholesterolemia Vitamin D deficiency Hypothyroid Seizure disorder Anxiety Gout GERD (gastroesophageal reflux disease) Psoriatic arthritis Hypertension Surgical History History of Mohs surgery for squamous cell carcinoma of skin History of cataract surgery History of colonoscopy History of knee replacement procedure of right knee History of left knee replacement Family History Father No problems noted. Mother Acute CVA (cerebrovascular accident) Diabetes Brother Cancer Daughter History of nephrectomy Son Heart disease Social History Household Members: Family Household Members Other:: Daughter (Katie) and son-in-law Housing: House Alcohol intake: never Patient Tobacco Use Status: Never used Tobacco Tobacco use type: Cigarette e-Cigarette/Vaping Use: Never Used Second Hand Smoke Exposure: No Advance Directives Date on File: 12/04/23 service: No Current occupational status: retired Cognitive needs: No Hearing needs: Yes (hearing aides) Vision needs: No Review of Systems Const All systems reviewed & are unremarkable except as noted in HPI and below Physical Exam Vital Signs: Last Vital Signs Pulse 66 07/18/24 10:20 BP 144/80 H 07/18/24 10:20 Pulse Ox 99 07/18/24 10:20 Oxygen Delivery Method Room Air 07/18/24 10:20 BMI result Body Mass Index 24.9 Const General: comfortable and no acute distress Orientation/consciousness: patient oriented x3 HEENT Head: Yes normocephalic Mouth: Normal oral and palatal mucosa present Eyes EOM: EOMs intact bilaterally Neck Neck: Yes supple Resp Auscultation: clear to auscultation bilaterally Cardio Jugular venous distension: no JVD Rate: regular rate GI Palpation (GI): Soft to palpation Auscultation: normal bowel sounds General: Yes no CVA tenderness Back/Spine/Pelvis Back: no CVA tenderness Skin General skin exam: no rashes or lesions noted Neuro General: patient oriented x3 and moves all extremities Extrem General: Yes no pedal edema Results Reviewed Nephrology Results: Hgb 12.1 g/dl (12.0-16.0) 03/15/24 WBC 4.3 X10*3/uL (4.8-10.8) L 03/15/24 Plt Count 142 X10*3/uL (160-400) L 03/15/24 Sodium 138 mmol/L (135-145) 03/15/24 Potassium 3.8 mmol/L (3.3-5.1) 03/15/24 Chloride 100 mmol/L (96-108) 03/15/24 Carbon Dioxide 29 mmol/L (22-29) 12/14/24 BUN 25 mg/dL (9-16) H 03/15/24 Creatinine 1.33 mg/dL (0.5-1.4) 03/15/24 Calcium 9.1 mg/dL (8.4-10.2) 03/15/24 Urine Protein Negative mg/dL (Neg-Trace) 05/28/24 Assessment & Plan Assessment & Plan (1) Hypertension: Code(s): I10 - Essential (primary) hypertension Category: Medical Qualifiers: Hypertension type: essential hypertension Qualified Code(s): I10 - Essential (primary) hypertension (2) Hyponatremia: Code(s): E87.1 - Hypo-osmolality and hyponatremia Category: Medical (3) GEGE (acute kidney injury): Code(s): N17.9 - Acute kidney failure, unspecified Category: Medical Plan Dulce had a euvolemic hyponatremia. She had mental status changes which is resolved. Her weakness and mentation is back to baseline. She does not taking excessive amount of free water. Her serum sodium is normal now. She is tolerating Metoprolol which is keeping her BP at goal. Given rise in serum creatinine , I ordered renal functions today. She needs to maintain fluid restriction. I did not make any medication changes today. Follow up given Orders: Orders Calcium Today E87.1 - Hypo-osmolality and hyponatremia, N17.9 - Acute kidney failure, unspecified Coding Level of Care Code Est Pt Level 4 (93699) Diagnoses Essential hypertension I10 Hypertension type: essential hypertension Hyponatremia E87.1 GEGE (acute kidney injury) N17.9
[2024-07-18 10:20] VITALS: BP 144/80; PULSE 66; O2SAT 99; BMI 24.9
--- OUTSIDE RECORDS SUMMARY | 2024-07-18 10:36 | XMS_ITS | Patient Health Record ---
Author Organization [facility] Address [address] [place] [address] Care Team Providers Care Candy Spreader Name Role Phone Po Marie STACK Primary Care Provider Satish Villagran [phone] Reason For Referral No Information Problems Problem Type SNOMED Code ICD Code Onset Dates Problem Status W/U Status Risk Notes Problem Dysphagia (86892152) Dysphagia (R13.10) Active confirmed Plan Of Treatment No Information Insurance Providers Payer Name Payer Address Payer Phone Subscriber Number Group Number Insured Name Patient Relationship to Insured Coverage Start Date Coverage End Date MEDICARE OF [place] [address] [place] [address] [phone] [id number] JANETH WELDON Self - patient is the insured MED[employer] ATTN CLAIMS [address] [place] [address] [phone] [id number] JANETH WELDON Self - patient is the insured
--- OUTSIDE RECORDS SUMMARY | 2024-07-18 10:36 | XMS_ITS | Clinical Summary ---
Author Organization [facility] Facility Address [address] [address] Care Team Providers Care Court Recording Monitor Name Role Phone Marie Villanueva MD Primary Care Provider [phone] Social History Tobacco Use Types Packs/Day Years Used Date Smoking Tobacco: Never Assessed Comments Unknown Sex and Gender Information Value Date Recorded Sex Assigned at Not on file Legal Sex Female 4:55 PM EST Gender Identity Not on file Sexual Orientation Not on file Plan of Treatment Health Maintenance Due Date Last Done Comments Pneumococcal Vaccine: 50+ Ye ars (1 of - PCV) 1986 Influenza Vaccine (Season Ended) 2024 Hepatitis B Vaccine Aged Out No longe r eligible based on patient's age to complete this topic Insurance Medicare [facility] Medicare [facility] Care Teams Court Recording Monitor Relationship Specialty Start Date End Date Marie Villanueva MD [facility] [address] [place], [place] PCP - General 04/12/20
== END 2024-07-18 10:45 | disposition home or self-care (01) ==
LOC: HO.HKA 09:55
PROVIDERS: PCP Internal Medicine; Visit Provider Internal Medicine Nephrology
DX: I10 Essential (primary) hypertension (principal); E87.1 Hypo-osmolality and hyponatremia; N17.9 Acute kidney failure, unspecified
CPT/HCPCS: 99214

== ENCOUNTER → 2024-07-18 09:54 | Outpatient (BNVA) | payer MEDICARE, SELFPAY | PROVIDERS: PCP Internal Medicine; Visit Provider Internal Medicine Nephrology | DX: Z13.89 Encounter for screening for other disorder (principal) | CPT/HCPCS: 99212 ==

== ENCOUNTER 2024-07-18 10:56 | Outpatient (REF) | payer MEDICARE, SELFPAY ==
--- OUTSIDE RECORDS SUMMARY | 2024-07-18 12:02 | XMS_ITS | Clinical Summary ---
Author Organization [facility] Facility Address [address] [address] Care Team Providers Care Icu Rn Name Role Phone Marie Villanueva MD Primary Care Provider [phone] Social History Tobacco Use Types Packs/Day Years [...] age to complete this topic Insurance Medicare [facility] Medicare [facility] Care Teams Icu Rn Relationship Specialty Start Date End Date Marie Villanueva MD [facility] [address] [place], [place] PCP - General 04/12/20
[2024-07-18 13:59] LABS: Anion Gap 12 (12-20); Blood Urea Nitrogen 12 mg/dL (9-16); Calcium 9.6 mg/dL (8.4-10.2); Carbon Dioxide 28 mmol/L (22-29); Chloride 101 mmol/L (96-108); Estimated Glomerular Filt Rate > 60; Potassium 4.4 mmol/L (3.3-5.1); Sodium 137 mmol/L (135-145)
== END 2024-07-18 10:57 | disposition home or self-care (01) ==
LOC: HO.10HDL 10:56
PROVIDERS: Visit Provider Internal Medicine Nephrology
DX: I10 Essential (primary) hypertension (principal); E87.1 Hypo-osmolality and hyponatremia; N17.9 Acute kidney failure, unspecified
CPT/HCPCS: 36415; 80051; 82310; 82565; 84520; 99212

== ENCOUNTER 2024-08-06 11:09 | Outpatient (AMB) | payer MEDICARE, SELFPAY ==
[2024-08-06 11:27] VITALS: BP 144/76; PULSE 68; O2SAT 96; BMI 24.6
--- NOTE | 2024-08-06 11:27 | A.OFFPC_ITS ---
Vital Signs 08/06/24 11:27 Height 5 ft Weight 126 lb BMI 24.6 BP 144/76 H Blood Pressure Location Lt brachial Position Sitting Pulse 68 Pulse Source Pulse Oximeter Pulse Oximetry (%) 96 Oxygen Delivery Method Room Air Intake Visit Reasons: Hypertension Allergies hydrochlorothiazide Allergy (Unknown, Verified 08/06/24 11:27) Electrolyte abnormality oxycodone [OXYCODONE] Allergy (Unknown, Verified 08/06/24 11:27) VOMITTING,CONFUSION amlodipine Adverse Reaction (Intermediate, Verified 08/06/24 11:27) leg swelling lisinopril Adverse Reaction (Intermediate, Verified 08/06/24 11:27) cough losartan Adverse Reaction (Intermediate, Verified 08/06/24 11:27) hyponatremia Tobacco use date assessed: 05/05/24 Fall risk assessment: No Falls in past year Last assessed Fall Risk: 08/06/24 Dental Screening Dental Screen Date: 05/05/24 HPI Hypertension HPI Details gas, drinks soda 2 , mayonaise, milkice cream PFSH Medical History 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 Facial droop Cerebral infarction Left leg DVT Upper respiratory infection COVID-19 virus infection Burning with urination Buttock pain Status post fall Dog bite of right arm Adult general medical exam Screening for diabetes mellitus Impacted cerumen of both ears Facial lesion Overweight (BMI 25.0-29.9) Hip osteoarthritis T12 vertebral fracture Reactive airways dysfunction syndrome Pneumonia Cholelithiasis CVA (cerebral vascular accident) Obesity (BMI 30-39.9) Hypercholesterolemia Vitamin D deficiency Hypothyroid Seizure disorder Anxiety Gout GERD (gastroesophageal reflux disease) Psoriatic arthritis Hypertension Surgical History History of Mohs surgery for squamous cell carcinoma of skin History of cataract surgery History of colonoscopy History of knee replacement procedure of right knee History of left knee replacement Family History Father No problems noted. Mother Acute CVA (cerebrovascular accident) Diabetes Brother Cancer Daughter History of nephrectomy Son Heart disease Social History Household Members: Family Household Members Other:: Daughter (Katie) and son-in-law Housing: House Alcohol intake: never Patient Tobacco Use Status: Never used Tobacco Tobacco use type: Cigarette e-Cigarette/Vaping Use: Never Used Second Hand Smoke Exposure: No Advance Directives Date on File: 12/04/23 service: No Current occupational status: retired Cognitive needs: No Hearing needs: Yes (hearing aides) Vision needs: No Questionnaire PHQ-9 Over the last 2 weeks, how often have you been bothered by any of the following problems? 1. Little interest or pleasure in doing things: not at all 2. Feeling down, depressed, or hopeless: not at all 3. Trouble falling or staying asleep, or sleeping too much: not at all 4. Feeling tired or having little energy: not at all 5. Poor appetite or overeating: not at all 6. Feeling bad about yourself - or that you are a failure or have let yourself or your family down: not at all 7. Trouble concentrating on things, such as reading the newspaper or watching television: not at all 8. Moving or speaking so slowly that other people could have noticed. Or the opposite - being so fidgety or restless that you have been moving around a lot more than usual: not at all 9. Thoughts that you would be better off or of hurting yourself in some way: not at all Total score: 0 Depression Screening Interpretation: Negative Depression Screening Done: Yes Source: Developed by Drs. Satish Summers, Radha Honeycutt, Tani Gonzales and colleagues, with an educational milton from [employer]. Thrive Questionnaire Date Thrive assessed: 05/05/24 I am a: Parent/Caregiver What is your living situation today?: I have a steady place to live Within the past 12 months, did the food you bought not last and you didn't have the money to get more?: I choose not to answer this question Within the past 12 months, did you worry whether your food would run out before you got money to buy more?: I choose not to answer this question Do you have trouble paying for medicines?: I choose not to answer this question Do you have trouble getting transportation to medical appointments?: I choose not to answer this question Do you have trouble paying your heating and electricity bill?: I choose not to answer this question Do you have trouble taking care of your child, family member or friend?: I choose not to answer this question Do you have trouble with day-to-day activities such as bathing, preparing meals, shopping, managing finances, etc.?: I choose not to answer this question Are you currently unemployed and looking for a job?: I choose not to answer this question Are you interested in more education?: I choose not to answer this question Please select the resources that you would like help with: None Currently or been in a relationship where the following occur: No concerns reported THRIVE Score: 0 AUDIT C Alcohol Use Questionnaire (AUDIT-C) 1. How often do you have a drink containing alcohol?: Never Total Score: 0 HAZEL-7 AMB Questionnaire HAZEL-7 Date HAZEL - 7 assessed: 05/05/24 Feeling nervous, anxious, or on edge: 0 = Not at all Not being able to stop or control worryin = Not at all Worrying too much about different things: 0 = Not at all Trouble relaxin = Not at all Being so restless that it is hard to sit still: 0 = Not at all Becoming easily annoyed or irritable: 0 = Not at all Feeling afraid as if something awful might happen: 0 = Not at all Total HAZEL-7 score (0-4 normal; 5-9 mild; 10-14 moderate; 15-21 severe): 0 Source: Developed by Drs. Satish Summers, Radha Honeycutt, Tani Gonzales and colleagues, with an educational milton from [employer]. Physical exam (Primary Care) Vital Signs: Last Vital Signs Pulse 68 08/06/24 11:27 BP 144/76 H 08/06/24 11:27 Pulse Ox 96 08/06/24 11:27 Oxygen Delivery Method Room Air 08/06/24 11:27 BMI result Body Mass Index 24.6 Tobacco/Smoking Status: Tobacco use Status Tobacco use date assessed 05/05/24 08/06/24 11:28 Patient Tobacco Use Status Never used Tobacco 08/06/24 11:28 Tobacco use type Cigarette 08/06/24 11:28 e-Cigarette/Vaping Use Never Used 08/06/24 11:28 PHQ-9: PHQ-9 Score PHQ-9: Total score 0 08/06/24 11:56 Depression Screening Interpretation: Negative Thrive Assessment: Date of Thrive Assessment Date Thrive assessed 05/05/24 08/06/24 11:28 Currently or been in a relationship where the following occur: No concerns reported Const General: alert; No acute distress Eyes Conjunctivae: conjunctivae normal Resp Auscultation: clear to auscultation bilaterally Cardio Rate: regular rate Rhythm: regular rhythm GI Inspection: Yes normal to inspection Extrem General: Yes normal to inspection and No edema Coding Level of Care Code Est Pt Level 4 (10574) Diagnoses Hyponatremia E87.1 Primary hypertension I10 Hypertension type: primary hypertension Acquired hypothyroidism E03.9 Hypothyroidism type: acquired Hypercholesterolemia E78.00 Gastroesophageal reflux disease without esophagitis K21.9 Esophagitis presence: without esophagitis Bloating R14.0 Assessment & Plan Assessment & Plan (1) Hyponatremia: Code(s): E87.1 - Hypo-osmolality and hyponatremia Category: Medical Plan: Resolved has been placed on fluid restriction still (2) Hypertension: Code(s): I10 - Essential (primary) hypertension Category: Medical Qualifiers: Hypertension type: primary hypertension Qualified Code(s): I10 - Essential (primary) hypertension Plan: Continue with blood pressure medication. Decrease salt intake and exercise on metoprolol 50 mg once a day (3) Hypothyroid: Code(s): E03.9 - Hypothyroidism, unspecified Category: Medical Qualifiers: Hypothyroidism type: acquired Qualified Code(s): E03.9 - Hypothyroidism, unspecified Plan: Continue with thyroid medication (4) Hypercholesterolemia: Code(s): E78.00 - Pure hypercholesterolemia, unspecified Category: Medical Plan: Avoid fried foods, chicken skin, eggs, butter margarine, pastries and meat. Be it pork or beef they have a lot of cholesterol diet controlled (5) GERD (gastroesophageal reflux disease): Comment: EGD Dr. Mireles April 2018 erosive esophagitis Code(s): K21.9 - Gastro-esophageal reflux disease without esophagitis Category: Medical Qualifiers: Esophagitis presence: without esophagitis Qualified Code(s): K21.9 - Gastro-esophageal reflux disease without esophagitis Plan: Avoid the foods that causes that usually spicy foods, tomato products, juices, coffee, soda and foods that your sensitive to. After eating do not lie down, allow 3-4 hours before in lie down. And keep the head of bed above 30 degrees to avoid the acid from going up. (6) Bloating: Code(s): R14.0 - Abdominal distension (gaseous) Category: Medical Plan: long discussion regarding diet causing gas * Beans and lentils * Vegetables such as cabbage, broccoli, cauliflower, bok elise and [place] sprouts * Bran * Dairy products containing lactose * Fructose, which is found in some fruits and used as a sweetener in soft drinks and other products * Sorbitol, a sugar substitute found in some sugar-free candies, gums and artificial sweeteners * Carbonated beverages, such as soda or beer
--- OUTSIDE RECORDS SUMMARY | 2024-08-06 12:36 | XMS_ITS | Clinical Summary ---
Author Organization [facility] Facility Address [address] [address] Care Team Providers Care Trimmer Climber Name Role Phone Marie Villanueva MD Primary Care Provider [phone] Social History Tobacco Use Types Packs/Day Years [...] age to complete this topic Insurance Medicare [facility] Medicare [facility] Care Teams Trimmer Climber Relationship Specialty Start Date End Date Marie Villanueva MD [facility] [address] [place], [place] PCP - General 04/12/20
--- OUTSIDE RECORDS SUMMARY | 2024-08-06 12:36 | XMS_ITS | Patient Health Record ---
Author Organization [facility] Address [address] [place] [address] Care Team Providers Care Director Life Name Role Phone Po Marie STACK Primary Care Provider Satish Villagran [phone] Reason For Referral No Information Problems Problem Type SNOMED Code ICD Code Onset Dates Problem Status W/U Status Risk Notes Problem Dysphagia ([id number]) Dysphagia (R13.10) Active confirmed Plan Of Treatment No Information Insurance Providers Payer Name Payer Address Payer Phone Subscriber Number Group Number Insured Name Patient Relationship to Insured Coverage Start Date Coverage End Date MEDICARE OF [place] [address] [place] [address] [id number] JANETH WELDON Self - patient is the insured MED[employer] ATTN CLAIMS [address] [place] [phone] [id number] JANETH WELDON Self - patient is the insured
== END 2024-08-06 13:00 | disposition home or self-care (01) ==
LOC: HO.HMCH 11:10
PROVIDERS: PCP Internal Medicine; Visit Provider Internal Medicine
DX: E87.1 Hypo-osmolality and hyponatremia (principal); I10 Essential (primary) hypertension; E03.9 Hypothyroidism, unspecified; E78.00 Pure hypercholesterolemia, unspecified; K21.9 Gastro-esophageal reflux disease without esophagitis; R14.0 Abdominal distension (gaseous)

== ENCOUNTER → 2024-08-06 11:09 | Outpatient (BNVA) | payer MEDICARE, SELFPAY | PROVIDERS: PCP Internal Medicine; Visit Provider Internal Medicine | DX: E87.1 Hypo-osmolality and hyponatremia (principal); I10 Essential (primary) hypertension; E03.9 Hypothyroidism, unspecified; E78.00 Pure hypercholesterolemia, unspecified; K21.9 Gastro-esophageal reflux disease without esophagitis; R14.0 Abdominal distension (gaseous) | CPT/HCPCS: 99212 ==

== ENCOUNTER 2024-08-23 13:09 | Emergency (ER) | payer MEDICARE, SELFPAY ==
--- NOTE | ~2024-08-23 | CT_ITS ---
CLINICAL HISTORY: headache and confusion CT head without contrast. COMPARISON: CT head dated 03/15/24 at 11:36 EST FINDINGS: The visualized paranasal sinuses are clear. The mastoid air cells are clear. No calvarial fracture. Atherosclerotic intracranial vasculature. No evidence for mass or mass effect. No intracranial hemorrhage or abnormal extra-axial fluid collection. No CT evidence of acute infarct. The ventricles are proportional with the degree of mild global cerebral volume loss without evidence of hydrocephalus. Basilar cisterns are patent. There are periventricular areas of low attenuation compatible with [id number] white matter small vessel disease. Posterior fossa appears unremarkable. IMPRESSION: 1. No acute intracranial findings. This document has been electronically signed by: Raman Barboza MD on 08/23/2024 14:54:28
[2024-08-23 13:26] VITALS: BP 136/111; PULSE 80; RESP 18; TEMP 36.8; O2SAT 99; BMI 25.4
--- NOTE | 2024-08-23 13:26 | ED_ITS ---
HPI - General Adult General Chief complaint: Urogenital-Female Stated complaint: quest UTI other issues Time Seen by Provider: 08/23/24 14:07 Source: patient Mode of arrival: ambulatory Limitations: no limitations History of Present Illness ED Provider: Lamberto Dela Cruz DO HPI narrative: 88-year-old female with past medical history of dementia, hypertension, arthritis, CVA, hyperlipidemia, seizure, sciatica and GERD presents to the ED with confusion, and a frontal headache without trauma. Per family, the patient has had similar episodes in the past with acute cystitis. Patient states over the past week she has had fullness in her lower abdomen and intermittent dysuria without urgency or frequency. She reports feeling ?off?, somewhat weak and confused at times. She lives with her daughter. She has not been participating in her outpatient program due to her symptoms. She denies abdominal pain otherwise, nausea, vomiting, diarrhea, chest pain or dyspnea. She does report a headache today which responded incompletely resolved after 2 tablets of acetaminophen this morning. She has had no numbness or weakness of her arms or legs. Son at bedside attest that the patient has had similar symptoms with cystitis in the past. Related Data Home Medications ?Medication ?Instructions ?Recorded ?Confirmed acetaminophen 500 mg tablet 1,000 mg PO DAILY PRN Pain 12/03/23 05/13/24 Previous Rx's ?Medication ?Instructions ?Recorded aspirin 81 mg tablet,delayed 81 mg PO DAILY #30 tabs 10/01/23 release low height rollator #1 ea 10/26/23 mirabegron 25 mg tablet,extended 25 mg PO DAILY #90 tabs 02/04/24 release 24 hr (Myrbetriq) omeprazole 20 mg capsule,delayed 20 mg PO BID #180 caps 04/09/24 release magnesium oxide 400 mg PO DAILY #90 caps 04/25/24 levothyroxine 88 mcg tablet 88 mcg PO DAILY@0600 90 days #90 05/04/24 tabs loratadine 10 mg tablet 10 mg PO DAILY #30 tabs 05/05/24 metoprolol succinate 50 mg 50 mg PO DAILY #90 tabs 05/05/24 tablet,extended release 24 hr lorazepam 1 mg tablet 0.5 mg (1/2 x 1 mg) PO DAILY@1700 07/28/24 anxiety #45 tabs levetiracetam 1,000 mg tablet 1,000 mg PO BID #180 tabs 08/09/24 cefdinir 300 mg capsule 300 mg PO BID 7 days #14 caps 08/23/24 Allergies Allergy/AdvReac Type Severity Reaction Status Date / Time hydrochlorothiazide Allergy Unknown Electrolyte Verified 08/23/24 13:28 abnormality oxycodone [OXYCODONE] Allergy Unknown VOMITTING,C Verified 08/23/24 13:28 ONFUSION amlodipine AdvReac Intermediate leg Verified 08/23/24 13:28 swelling lisinopril AdvReac Intermediate cough Verified 08/23/24 13:28 losartan AdvReac Intermediate hyponatremi Verified 08/23/24 13:28 a Review of Systems 2 Review of Systems: Yes all other systems are reviewed and are negative [facility] Past Medical History Medical History 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 Facial droop Cerebral infarction Left leg DVT Upper respiratory infection COVID-19 virus infection Burning with urination Buttock pain Status post fall Dog bite of right arm Adult general medical exam Screening for diabetes mellitus Impacted cerumen of both ears Facial lesion Overweight (BMI 25.0-29.9) Hip osteoarthritis T12 vertebral fracture Reactive airways dysfunction syndrome Pneumonia Cholelithiasis CVA (cerebral vascular accident) Obesity (BMI 30-39.9) Hypercholesterolemia Vitamin D deficiency Hypothyroid Seizure disorder Anxiety Gout GERD (gastroesophageal reflux disease) Psoriatic arthritis Hypertension Surgical History History of Mohs surgery for squamous cell carcinoma of skin History of cataract surgery History of colonoscopy History of knee replacement procedure of right knee History of left knee replacement Family History Family History Father No problems noted. Mother Acute CVA (cerebrovascular accident) Diabetes Brother Cancer Daughter History of nephrectomy Son Heart disease Social History Social History Household Members: Family Household Members Other:: Daughter (Katie) and son-in-law Housing: House Alcohol intake: never Patient Tobacco Use Status: Never used Tobacco Tobacco use type: Cigarette Smoked in Last 30 Days: No e-Cigarette/Vaping Use: Never Used Second Hand Smoke Exposure: No Use of substances other than those prescribed or required for medical reasons: No Advance Directives: Yes Advance Directives on File: Yes Advance Directives Date on File: 12/04/23 Do you have a plan to hurt others: No Plan service: No Current occupational status: retired Cognitive needs: No Hearing needs: Yes (hearing aides) Vision needs: No Physical Exam ED Vital Signs: Vital Signs - 24 hr 08/23/24 13:26 08/23/24 14:08 Temperature 98.3 F Pulse Rate 80 83 Respiratory Rate 18 18 Blood Pressure 136/111 H 172/59 H Pulse Oximetry 99 99 Oxygen Delivery Method Room Air Room Air BMI result Body Mass Index 25.4 Constitutional: ?Alert, oriented, speaking in full sentences HEENT: ?Normocephalic, atraumatic. ?Moist mucous membranes Eyes: ?PERRL, EOMI Neck: ?Supple, nontender Chest: ?No chest wall tenderness Respiratory: ?Lungs clear to auscultation, no increased work of breathing Cardio: ?Regular rate and rhythm, no murmur, 2+ radial and DP pulses symmetrically GI: ?Soft, nondistended, tenderness localized to the suprapubic region, mild Back: ?Normal range of motion, nontender Skin: ?No rash, no lesions Neuro: ?Alert and oriented to person, place and time, moves all 4 extremities, no focal deficits, full strength and sensation intact of the bilateral upper and lower extremities, cranial nerves 2-12 fully intact, vision unchanged. Extremities: ?No swelling or tenderness, full range of motion Psych: ?Calm, alert and cooperative, appropriate behavior Course Course Course Narrative: RME, this is a rapid medical exam performed by Toni Cordero please refer to primary provider for complete H&P- 88 year old female with history of dementia, hypertension, arthritis, GERD presenting for evaluation of confusion. She also complains of a frontal headache, there has not been any reported falls. She has not had any weakness, dysarthria or facial droop per her son. The patient has similar episodes with previous UTIs. Plan for labs, urinalysis and a head CT given the headache with confusion. Medical Decision Making Medical Decision Making [facility] Narrative: This is a very pleasant patient presenting with signs and symptoms concerning for acute cystitis. Patient has no flank pain or tenderness and I do not suspect ureteral stone. Her headache has resolved and CT imaging of the brain is unremarkable. She has an unremarkable neurologic exam and I do not suspect recurrent stroke. She has some hypertension today consistent with history and likely elevated in the setting of discomfort. We will obtain straight catheterization to evaluate urine. Labs are unremarkable with the exception of urinalysis positive for acute cystitis. There is a hemorrhagic component but the patient is not passing blood clots nor is she having urinary retention. The patient is on omeprazole but given lack of PO 3rd generation cephalosporins, she is given cefuroxime here and will be prescribed a 7 day course of cefdinir. She is stable for discharge to home and would prefer to return home. She is not encephalopathic and is alert and oriented x4 throughout her stay in the ED. she also lives with her daughter and patient as well as 2 of her children at the bedside agree with plan to return if she does not improve or worsens despite antibiotic therapy. Admission/Observation Consideration of admission/observation: Escalation of care including admission/observation considered Lab Data MDM Lab Attestation statement: I reviewed the patient's lab results. Mild elevation of leukocytes which is neutrophilic predominant. 08/23/24 14:41 08/23/24 14:41 Labs: Lab Results 08/23/24 08/23/24 Range/Units 14:41 16:45 WBC 9.2 (4.8-10.8) X10*3/uL RBC 4.16 L (4.20-5.50) X10*6/uL Hgb 13.2 (12.0-16.0) g/dl Hct 37.1 (37.0-47.0) % MCV 89.2 (80.0-98.0) fL MCH 31.7 (27.0-33.0) pg MCHC 35.6 H (31.0-35.0) g/dl RDW 12.3 (11.0-16.0) % Plt Count 141 L (160-400) X10*3/uL MPV 9.7 (9.4-12.3) fL Immature Gran % (Auto) 0.2 (0.0-0.4) % Neut % (Auto) 87.4 H (45-73) % Lymph % (Auto) 3.5 L (20-40) % [place] % (Auto) 8.3 (2-11) % Eos % (Auto) 0.4 (0-4) % Baso % (Auto) 0.2 (0-2) % Lymph # (Auto) 0.3 L (1.2-4.9) X10*3/uL [place] # (Auto) 0.8 (0.1-1.2) X10*3/uL Eos # (Auto) 0.0 (0.0-0.4) X10*3/uL Baso # (Auto) 0.0 (0.0-0.2) X10*3/uL Abs Immat Gran (auto) 0.02 (0.00-0.03) X10*3/uL Absolute Neuts (auto) 8.0 (2.0-8.3) x10*3/uL Absolute Nucleated RBC 0.000 (0.0-0.012) X10*3/uL Nucleated RBC % (auto) 0.0 (0.0-0.2) /100WBC Sodium 134 L (135-145) mmol/L Potassium 3.7 (3.3-5.1) mmol/L Chloride 98 (96-108) mmol/L Carbon Dioxide 26 (22-29) mmol/L Anion Gap 14 (12-20) BUN 12 (9-16) mg/dL Creatinine 0.76 (0.5-1.4) mg/dL Estim Creat Clear Calc 41.8 Estimated GFR > 60 Random Glucose 122 H (60-115) mg/dL Calcium 9.1 (8.4-10.2) mg/dL Total Bilirubin 0.9 (0.0-1.0) mg/dL AST 22 (5-31) U/L ALT 13 (0-31) U/L Alkaline Phosphatase 78 (39-117) U/L Total Protein 6.9 (6.5-8.0) g/dL Albumin 4.0 (3.5-5.0) g/dL Lipase 9 (8-78) U/L Urine Color Dark Yellow Urine Appearance Turbid Urine pH 6.0 (5.0-9.0) Ur Specific [place] 1.020 (1.005-1.025) Urine Protein 100 (2+) H (Neg-Trace) mg/dL Urine Glucose (UA) Negative (Negative) mg/dL Urine Ketones Negative (Negative) mg/dL Urine Blood Moderate (2+) H (Negative) Urine Nitrite Negative (Negative) Ur Leukocyte Esterase Large (3+) H (Negative) Urine RBC 11-20 H (0-2) /HPF Urine WBC >50 H (0-5) /HPF Ur Squamous Epith Cells 11-20 (0-2) /HPF Urine Bacteria 1+ (None Seen) Hyaline Casts 6-10 (0-2) /LPF Radiology Impression Discussion of test interpretation with radiology: I have reviewed the radiologist's reading. Radiologist Impression: Unremarkable CT imaging of the brain Discharge Plan Discharge Clinical Impression: Acute cystitis with hematuria Patient Disposition: Home, Self-Care Instructions: Acute Urinary Retention in Women (ED) Additional Instructions: Please take the full course of cefdinir for 7 days. Return if you have any worsening symptoms such as pain, fevers over 100 degrees F, confusion, worsening weakness or any other new concerns despite taking antibiotics for at least 2 days. Prescriptions: New cefdinir 300 mg capsule 300 mg PO BID 7 Days Qty: 14 0RF No Action (DME) low height rollator See Rx Instructions .Route .MEDSUPPLY Qty: 1 0RF Rx Instructions: As directed Myrbetriq 25 mg tablet extended release 24 hr 25 mg PO DAILY Qty: 90 2RF omeprazole 20 mg capsule,delayed release(DR/EC) 20 mg PO BID Qty: 180 2RF magnesium oxide 400 mg magnesium capsule 400 mg PO DAILY Qty: 90 1RF levothyroxine 88 mcg tablet 88 mcg PO DAILY@0600 90 Days Qty: 90 1RF lorazepam 1 mg tablet 0.5 mg PO DAILY@1700 Qty: 45 0RF levetiracetam 1,000 mg tablet 1,000 mg PO BID Qty: 180 0RF aspirin 81 mg Tablet,Delayed Release (Dr/Ec) 81 mg PO DAILY Qty: 30 0RF acetaminophen 500 mg Tablet 1,000 mg PO DAILY PRN (Reason: Pain) metoprolol succinate 50 mg tablet extended release 24 hr 50 mg PO DAILY Qty: 90 3RF loratadine 10 mg tablet 10 mg PO DAILY Qty: 30 5RF Print Language: Com[place]an
[2024-08-23 14:08] VITALS: BP 172/59; PULSE 83; RESP 18; O2SAT 99
[2024-08-23 14:44] LABS: MANUAL DIFF FLAG NO
[2024-08-23 14:48] LABS: Basophils Percent Auto 0.2 % (0-2); Eosinophils Percent Auto 0.4 % (0-4); Hematocrit 37.1 % (37.0-47.0); Hemoglobin 13.2 g/dl (12.0-16.0); Imm Gran Abs Auto 0.02 X10*3/uL (0.00-0.03); Imm Gran Pct Auto 0.2 % (0.0-0.4); Lymphocytes Absolute Auto 0.3 X10*3/uL (1.2-4.9); Lymphocytes Percent Auto 3.5 % (20-40); Mean Corpuscular HGB Conc 35.6 g/dl (31.0-35.0); Mean Corpuscular Hemoglobin 31.7 pg (27.0-33.0); Mean Corpuscular Volume 89.2 fL (80.0-98.0); Mean Platelet Volume 9.7 fL (9.4-12.3); Monocytes Absolute Auto 0.8 X10*3/uL (0.1-1.2); Monocytes Percent Auto 8.3 % (2-11); Neutrophils Percent Auto 87.4 % (45-73); Platelet Count 141 X10*3/uL (160-400); Red Blood Count 4.16 X10*6/uL (4.20-5.50); Red Cell Distribution Width 12.3 % (11.0-16.0); White Blood Count 9.2 X10*3/uL (4.8-10.8)
[2024-08-23 15:04] LABS: Alanine Aminotransferase 13 U/L (0-31); Alkaline Phosphatase 78 U/L (39-117); Anion Gap 14 (12-20); Aspartate Amino Transferase 22 U/L (5-31); Bilirubin Total 0.9 mg/dL (0.0-1.0); Blood Urea Nitrogen 12 mg/dL (9-16); Calcium 9.1 mg/dL (8.4-10.2); Carbon Dioxide 26 mmol/L (22-29); Chloride 98 mmol/L (96-108); Creatinine Clr Calc Pharmacy 41.8; Estimated Glomerular Filt Rate > 60; Glucose Random 122 mg/dL (60-115); Lipase 9 U/L (8-78); Potassium 3.7 mmol/L (3.3-5.1); Sodium 134 mmol/L (135-145); Total Protein 6.9 g/dL (6.5-8.0)
[2024-08-23 16:52] LABS: Appearance Urine Turbid; Color Urine Dark Yellow; Glucose Urine UA Negative (Negative); Leukocyte Esterase Urine Large (3+) (Negative); Nitrite Urine Negative (Negative); UMIC TRIGGER UACC YES; Urine Blood Moderate (2+) (Negative); Urine Ketones Negative (Negative); Urine Protein 100 (2+) mg/dL (Neg-Trace)
[2024-08-23 17:42] LABS: Bacteria Urine 1+ (None Seen); UACC Culture Trigger YES; WBC Urine >50 /HPF (0-5)
[2024-08-23] MEDS: cefuroxime axetiL 500 MG TABLET PO (18:14)
[2024-08-23 18:22] VITALS: BP 160/82; PULSE 88; RESP 18; TEMP 36.9; O2SAT 99
[2024-08-23 18:37] VITALS: BP 160/82; PULSE 88; RESP 18; TEMP 36.9; O2SAT 99
== END 2024-08-23 18:38 | disposition home or self-care (01) ==
PROVIDERS: Physician Assistant; Emergency Provider Emergency Medicine; PCP Internal Medicine
DX: N30.01 Acute cystitis with hematuria (principal); R51.9 Headache, unspecified; R41.0 Disorientation, unspecified; Z79.899 Other long term (current) drug therapy
CPT/HCPCS: 36415; 70450; 80053; 81001; 83690; 85025; 87086; 87088; 87186; 99284

== ENCOUNTER → 2024-08-23 13:28 | Outpatient (BNV) | payer MEDICARE, SELFPAY | PROVIDERS: Emergency Provider Emergency Medicine; PCP Internal Medicine; Visit Provider Radiology Diagnostic Radiology | DX: R51.9 Headache, unspecified (principal); R41.0 Disorientation, unspecified | CPT/HCPCS: 70450 ==

== ENCOUNTER 2024-11-13 07:21 | Outpatient (REF) | payer MEDICARE, SELFPAY ==
--- OUTSIDE RECORDS SUMMARY | 2024-11-13 07:24 | XMS_ITS | Patient Health Record ---
Author Organization [facility] Address [address] [place] [address] Care Team Providers Care Collection Correspondent Name Role Phone Po Marie STACK Primary Care Provider Satish Villagran [phone] Reason For Referral No Information Problems Problem Type SNOMED Code ICD Code Onset Dates Problem Status W/U Status Risk Notes Problem Dysphagia (R13.10) Active confirmed Plan Of Treatment No Information Insurance Providers Payer Name Payer Address Payer Phone Subscriber Number Group Number Insured Name Patient Relationship to Insured Coverage Start Date Coverage End Date MEDICARE OF [place] [address] [place] [address] [id number] JANETH WELDON Self - patient is the insured MEDEX ATTN CLAIMS [address] [place] [address] [id number] JANETH WELDON Self - patient is the insured
--- OUTSIDE RECORDS SUMMARY | 2024-11-13 07:24 | XMS_ITS | Clinical Summary ---
Author Organization [facility] Facility Address [address] [address] Care Team Providers Care Bank Note Designer Name Role Phone Marie Villanueva MD Primary Care Provider [phone] Social History Tobacco Use Types Packs/Day Years Used Date Smoking Tobacco: Never Assessed Comments Unknown Sex and Gender Information Value Date Recorded Sex Assigned at Not on file Legal Sex Female 4:55 PM EST Gender Identity Not on file Sexual Orientation Not on file Plan of Treatment Health Maintenance Due Date Last Done Comments Pneumococcal Vaccine: 50+ Ye ars (1 of 1 - PCV) 1986 Influenza Vaccine (#1) 2024 Hepatitis B Vaccine Aged Out No longe r eligible based on patient's age to complete this topic Insurance Medicare [facility] Medicare [facility] Care Teams Bank Note Designer Relationship Specialty Start Date End Date Marie Villanueva MD [facility] [address] [place], [place] PCP - General 04/12/20
[2024-11-13 10:51] LABS: Appearance Urine Clear; Glucose Urine UA Negative (Negative); PH 7.0 (5.0-9.0); Specific Gravity - Urine 1.010 (1.005-1.025); UMIC TRIGGER UACC YES
== END 2024-11-13 07:22 | disposition home or self-care (01) ==
LOC: HO.10HDLR 07:21
PROVIDERS: Visit Provider Internal Medicine
DX: R30.0 Dysuria (principal); I10 Essential (primary) hypertension
CPT/HCPCS: 81001

== ENCOUNTER 2024-11-17 07:42 | Outpatient (REF) | payer MEDICARE, SELFPAY ==
--- OUTSIDE RECORDS SUMMARY | 2024-11-17 07:44 | XMS_ITS | Patient Health Record ---
Author Organization [facility] Address [address] [place] [address] Care Team Providers Care Computer Graphics Illustrator Name Role Phone Po Marie STACK Primary Care Provider Satish Villagran [phone] Reason For Referral No Information Problems Problem Type SNOMED Code ICD Code Onset Dates Problem Status W/U Status Risk Notes Problem Dysphagia (82513639) Dysphagia (R13.10) Active confirmed Plan Of Treatment No Information Insurance Providers Payer Name Payer Address Payer Phone Subscriber Number Group Number Insured Name Patient Relationship to Insured Coverage Start Date Coverage End Date MEDICARE OF [place] [address] [place] [address] [id number] JANETH WELDON Self - patient is the insured MEDEX ATTN CLAIMS [address] [place] [address] [phone] [id number] JANETH WELDON Self - patient is the insured
--- OUTSIDE RECORDS SUMMARY | 2024-11-17 07:44 | XMS_ITS | Clinical Summary ---
Author Organization [facility] Facility Address [address] [address] Care Team Providers Care Keno Attendant Name Role Phone Marie Villanueva MD Primary Care Provider [phone] Social History Tobacco Use Types Packs/Day Years [...] age to complete this topic Insurance Medicare [facility] Medicare [facility] Care Teams Keno Attendant Relationship Specialty Start Date End Date Marie Villanueva MD [facility] [address] [place], [place] PCP - General 04/12/20
--- OUTSIDE RECORDS SUMMARY | 2024-11-17 07:44 | XMS_ITS | Clinical Summary ---
Author Organization [facility] Address [address] [place] [address] Phone Care Team Providers Care Groundhand Name Role Phone Tod Goncalves MD Primary Care Provider Social History Tobacco Use Types Packs/Day Years Used Date Smoking Tobacco: Never Assessed Education Answer Date Recorded Are you interested in more education? Not on steve e 07/28/2022 Are you concerned about learning? Not on file 07/28/2022 No 07/28/2022 No 07/28/2022 Digital Access Answer Date Recorded No 08/26/2022 No 08/26/2022 No 08/26/2022 Reliable internet access at home? Not on file 08/26/2022 Device with a working camera? Not on file Comments Unknown Sex and Gender Information Value Date Recorded Sex Assigned at Not on file Legal Sex Female 10:14 PM EDT Gender Identity Not on file Sexual Orientation Not on file Plan of Treatment Health Maintenance Due Date Last Done Comments DEPRESSION SCREENING 1947 ZOSTER VACCINES (1 of 2) 1986 OSTEOPOROSIS SCREENING INITI AL (ONE-TIME) 2001 RSV VACCINE (1 - 1-dose 75+ series) 12/19/2011 PNEUMOCOCCAL VACCINES (50+ years) (2 of 2 - PCV) 05/05/2016 05/05/2015, 07/19/2012 COVID-19 VACCINE ( - 2023-2 5 season) 2023 05/05/2020 Adult Td,Tdap Booster 12/06/2028 12/06/2018 HEPATITIS A VACCINES Aged Out No long er eligible based on patient's age to complete this topic HIB VACCINES Aged Out No longer eligi ble based on patient's age to complete this topic MENINGOCOCCAL VACCINES (ACWY) Aged Out No longer eligible based on patient's age to complete this topic MENINGOCOCCAL VACCINES (B) Aged Out N o longer eligible based on patient's age to complete this topic Medical Devices Not on file Insurance MEDICARE PART A & B [employer] MEDEX SUPPLEMENT MEDICARE PART A & B [employer] MEDEX SUPPLEMENT MEDICARE PART A & B [employer] MEDEX SUPPLEMENT MEDICARE PART A & B [email or web address] CROSS MEDEX SUPPLEMENT MEDICARE PART A & B [employer] MEDEX SUPPLEMENT MEDICARE PART A & B [email or web address] CROSS MEDEX SUPPLEMENT MEDICARE PART A & B [employer] MEDEX SUPPLEMENT MEDICARE PART A & B [employer] MEDEX SUPPLEMENT MEDICARE PART A & B [employer] MEDEX SUPPLEMENT Care Teams Groundhand Relationship Specialty Start Date End Date Tod Goncalves MD [address] [place] [address] PCP - General 04/05/17 Additional Source Comments The information contained in this document represents components of the legal health record. It is not the complete legal health record.[facility]
[2024-11-17 09:53] LABS: MANUAL DIFF FLAG NO
[2024-11-17 10:06] LABS: Hematocrit 38.5 % (37.0-47.0); Hemoglobin 13.2 g/dl (12.0-16.0); Imm Gran Abs Auto 0.01 X10*3/uL (0.00-0.03); Imm Gran Pct Auto 0.2 % (0.0-0.4); Lymphocytes Absolute Auto 0.4 X10*3/uL (1.2-4.9); Mean Corpuscular HGB Conc 34.3 g/dl (31.0-35.0); Mean Corpuscular Hemoglobin 30.8 pg (27.0-33.0); Mean Corpuscular Volume 89.7 fL (80.0-98.0); NRBC Abs Auto 0.000 X10*3/uL (0.0-0.012); NRBC Pct Auto 0.0 /100WBC (0.0-0.2); Platelet Count 158 X10*3/uL (160-400); Red Blood Count 4.29 X10*6/uL (4.20-5.50); White Blood Count 4.5 X10*3/uL (4.8-10.8)
[2024-11-17 11:03] LABS: Alanine Aminotransferase 10 U/L (0-31); Albumin Level 4.3 g/dL (3.5-5.0); Alkaline Phosphatase 78 U/L (39-117); Anion Gap 13 (12-20); Aspartate Amino Transferase 21 U/L (5-31); Blood Urea Nitrogen 10 mg/dL (9-16); Calcium 9.5 mg/dL (8.4-10.2); Carbon Dioxide 28 mmol/L (22-29); Chloride 102 mmol/L (96-108); Cholesterol 211 mg/dL (<200); Estimated Glomerular Filt Rate > 60; HDL Cholesterol 46 mg/dL (>40); Magnesium 1.8 mg/dL (1.6-2.6); Potassium 5.6 mmol/L (3.3-5.1); Sodium 137 mmol/L (135-145); Total Protein 7.0 g/dL (6.5-8.0); Triglycerides 117 mg/dL (<150)
[2024-11-17 11:17] LABS: Folate 7.2 ng/mL (> or = 4.0); Vitamin B12 227 pg/mL (200-900)
[2024-11-17 12:04] LABS: Free T4 (Free Thyroxine) 1.34 ng/dL (0.71-1.85); Thyroid Stimulating Hormone 0.77 uIU/mL (0.32-4.0)
== END 2024-11-17 07:43 | disposition home or self-care (01) ==
LOC: HO.10HDL 07:42
PROVIDERS: Visit Provider Internal Medicine
DX: I10 Essential (primary) hypertension (principal); E78.00 Pure hypercholesterolemia, unspecified
CPT/HCPCS: 36415; 80053; 80061; 82306; 82607; 82746; 83735; 84439; 84443; 85025

== ENCOUNTER 2024-12-08 11:13 | Outpatient (AMB) | payer MEDICARE, SELFPAY ==
[2024-12-08 11:22] VITALS: BP 152/80; PULSE 79; O2SAT 97; BMI 24.2
--- NOTE | 2024-12-08 11:22 | MHC.PC.OV ---
Vital Signs 12/08/24 11:22 Height 5 ft Weight 124 lb BMI 24.2 BP 152/80 H Blood Pressure Location Lt brachial Position Sitting Pulse 79 Pulse Source Pulse Oximeter Pulse Oximetry (%) 97 Oxygen Delivery Method Room Air Intake Visit Reasons: HTN,. hypothyroid Allergies hydrochlorothiazide Allergy (Unknown, Verified 12/08/24 11:22) Electrolyte abnormality oxycodone (OXYCODONE) Allergy (Unknown, Verified 12/08/24 11:22) VOMITTING,CONFUSION amlodipine Adverse Reaction (Intermediate, Verified 12/08/24 11:22) leg swelling lisinopril Adverse Reaction (Intermediate, Verified 12/08/24 11:22) cough losartan Adverse Reaction (Intermediate, Verified 12/08/24 11:22) hyponatremia Tobacco use date assessed: 05/05/24 Fall risk assessment: No Falls in past year Last assessed Fall Risk: 12/08/24 Dental Screening Dental Screen Date: 05/05/24 [facility] Medical History 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 Facial droop Cerebral infarction Left leg DVT Upper respiratory infection COVID-19 virus infection Burning with urination Buttock pain Status post fall Dog bite of right arm Adult general medical exam Screening for diabetes mellitus Impacted cerumen of both ears Facial lesion Overweight (BMI 25.0-29.9) Hip osteoarthritis T12 vertebral fracture Reactive airways dysfunction syndrome Pneumonia Cholelithiasis CVA (cerebral vascular accident) Obesity (BMI 30-39.9) Hypercholesterolemia Vitamin D deficiency Hypothyroid Seizure disorder Anxiety Gout GERD (gastroesophageal reflux disease) Psoriatic arthritis Hypertension Surgical History History of Mohs surgery for squamous cell carcinoma of skin History of cataract surgery History of colonoscopy History of knee replacement procedure of right knee History of left knee replacement Family History Father No problems noted. Mother Acute CVA (cerebrovascular accident) Diabetes Brother Cancer Daughter History of nephrectomy Son Heart disease Social History Household Members: Family Household Members Other:: Daughter (Katie) and son-in-law Housing: House Alcohol intake: never Patient Tobacco Use Status: Never used Tobacco Tobacco use type: Cigarette e-Cigarette/Vaping Use: Never Used Second Hand Smoke Exposure: No Advance Directives Date on File: 12/04/23 service: No Current occupational status: retired Cognitive needs: No Hearing needs: Yes (hearing aides) Vision needs: No Questionnaire PHQ-9 Over the last 2 weeks, how often have you been bothered by any of the following problems? 1. Little interest or pleasure in doing things: not at all 2. Feeling down, depressed, or hopeless: not at all 3. Trouble falling or staying asleep, or sleeping too much: not at all 4. Feeling tired or having little energy: not at all 5. Poor appetite or overeating: not at all 6. Feeling bad about yourself - or that you are a failure or have let yourself or your family down: not at all 7. Trouble concentrating on things, such as reading the newspaper or watching television: not at all 8. Moving or speaking so slowly that other people could have noticed. Or the opposite - being so fidgety or restless that you have been moving around a lot more than usual: not at all 9. Thoughts that you would be better off or of hurting yourself in some way: not at all Total score: 0 Depression Screening Interpretation: Negative Depression Screening Done: Yes Source: Developed by Drs. Satish Summers, Radha Honeycutt, Tani Gonzaels and colleagues, with an educational milton from [employer]. Thrive Questionnaire Date Thrive assessed: 08/06/24 I am a: Parent/Caregiver What is your living situation today?: I have a steady place to live Within the past 12 months, did the food you bought not last and you didn't have the money to get more?: I choose not to answer this question Within the past 12 months, did you worry whether your food would run out before you got money to buy more?: I choose not to answer this question Do you have trouble paying for medicines?: I choose not to answer this question Do you have trouble getting transportation to medical appointments?: I choose not to answer this question Do you have trouble paying your heating and electricity bill?: I choose not to answer this question Do you have trouble taking care of your child, family member or friend?: I choose not to answer this question Do you have trouble with day-to-day activities such as bathing, preparing meals, shopping, managing finances, etc.?: I choose not to answer this question Are you currently unemployed and looking for a job?: I choose not to answer this question Are you interested in more education?: I choose not to answer this question Please select the resources that you would like help with: None Currently or been in a relationship where the following occur: No concerns reported THRIVE Score: 0 AUDIT C Alcohol Use Questionnaire (AUDIT-C) 1. How often do you have a drink containing alcohol?: Never 3. How often do you have six or more drinks on one occasion?: Never Total Score: 0 HAZEL-7 AMB Questionnaire HAZEL-7 Date HAZEL - 7 assessed: 05/05/24 Source: Developed by Drs. Satish Summers, Radha Honeycutt, Tani Gonzales and colleagues, with an educational milton from [employer]. Physical exam (Primary Care) Vital Signs: Last Vital Signs Pulse 79 12/08/24 11:22 BP 152/80 H 12/08/24 11:22 Pulse Ox 97 12/08/24 11:22 Oxygen Delivery Method Room Air 12/08/24 11:22 BMI result Body Mass Index 24.2 Tobacco/Smoking Status: Tobacco use Status Tobacco use date assessed 05/05/24 12/08/24 11:29 Patient Tobacco Use Status Never used Tobacco 12/08/24 11:29 Tobacco use type Cigarette 12/08/24 11:29 e-Cigarette/Vaping Use Never Used 12/08/24 11:29 PHQ-9: PHQ-9 Score PHQ-9: Total score 0 12/08/24 12:04 Depression Screening Interpretation: Negative Thrive Assessment: Date of Thrive Assessment Date Thrive assessed 08/06/24 12/08/24 11:29 Currently or been in a relationship where the following occur: No concerns reported Const General: alert; No acute distress Eyes Conjunctivae: conjunctivae normal Resp Auscultation: clear to auscultation bilaterally Cardio Rate: regular rate Rhythm: regular rhythm GI Inspection: Yes normal to inspection Extrem General: Yes normal to inspection and No edema Coding Level of Care Code Est Pt Level 4 (02982) Complex EM visit Add On G2211 Diagnoses Essential hypertension I10 Hypertension type: essential hypertension Hypercholesterolemia E78.00 Acquired hypothyroidism E03.9 Hypothyroidism type: acquired Gastroesophageal reflux disease without esophagitis K21.9 Esophagitis presence: without esophagitis TIA (transient ischemic attack) G45.9 Generalized anxiety disorder F41.1 Assessment & Plan Assessment & Plan (1) Hypertension: Code(s): I10 - Essential (primary) hypertension Category: Medical Qualifiers: Hypertension type: essential hypertension Qualified Code(s): I10 - Essential (primary) hypertension Plan: Continue with blood pressure medication. Decrease salt intake and exercise patient on metoprolol 50 mg once a day (2) Hypercholesterolemia: Code(s): E78.00 - Pure hypercholesterolemia, unspecified Category: Medical Plan: Avoid fried foods, chicken skin, eggs, butter margarine, pastries and meat. Be it pork or beef they have a lot of cholesterol LDL goal of less than 130 and triglyceride of less than 150 (3) Hypothyroid: Code(s): E03.9 - Hypothyroidism, unspecified Category: Medical Qualifiers: Hypothyroidism type: acquired Qualified Code(s): E03.9 - Hypothyroidism, unspecified Plan: Continue with thyroid medication (4) GERD (gastroesophageal reflux disease): Comment: EGD Dr. Mireles April 2018 erosive esophagitis Code(s): K21.9 - Gastro-esophageal reflux disease without esophagitis Category: Medical Qualifiers: Esophagitis presence: without esophagitis Qualified Code(s): K21.9 - Gastro-esophageal reflux disease without esophagitis Plan: Avoid the foods that causes that usually spicy foods, tomato products, juices, coffee, soda and foods that your sensitive to. After eating do not lie down, allow 3-4 hours before in lie down. And keep the head of bed above 30 degrees to avoid the acid from going up. (5) TIA (transient ischemic attack): Code(s): G45.9 - Transient cerebral ischemic attack, unspecified Category: Medical Plan: Patient on aspirin (6) Generalized anxiety disorder: Code(s): F41.1 - Generalized anxiety disorder Category: Medical Plan: Continue with present medication Plan History of Present Illness The patient is an 88-year-old female presenting for a follow-up visit. She has a history of hypertension, managed with metoprolol 50 mg once daily. Her blood pressure was recorded at 150/40 mmHg during this visit. The patient has been diagnosed with gastroesophageal reflux disease (GERD) and continues with her current medication regimen. She has a seizure disorder, specifically partial complex seizures diagnosed in 2012. The patient has hypothyroidism and is advised to continue with her thyroid medication. Hypercholesterolemia is noted, with a previous LDL cholesterol level of 142 mg/dL, which is higher than her previous readings. The goal is to maintain LDL cholesterol below 130 mg/dL and triglycerides below 150 mg/dL. The patient has generalized anxiety disorder with cognitive impairment and a history of transient ischemic attack (TIA) with combined receptive and expressive aphasia. She was diagnosed with dementia and last seen in July 2024 for a follow-up. The patient was in the emergency room in July for a urinary tract infection (UTI). Her last blood work on November 17 showed normal blood count, but potassium was slightly elevated. Renal and liver functions were good, although cholesterol was mildly elevated and vitamin D was low. Health Maintenance - Blood pressure management with metoprolol 50 mg daily - Cholesterol management with dietary modifications - Vitamin D supplementation recommended due to low levels - Regular follow-up for dementia and cognitive impairment - Urinary health monitoring due to previous UTI Social History - Diet: High intake of processed foods, including honey buns, which may contribute to elevated cholesterol levels Review of Systems - Cardiovascular: Reports high blood pressure, denies chest pain - Neurological: Reports cognitive impairment, denies headaches - Genitourinary: Reports frequent urination every two hours, denies pain during urination Physical Exam - Cardiovascular: Blood pressure recorded at 150/40 mmHg - Neurological: Pulses in the hands are good, indicating good blood flow Results - Labs: Normal blood count, elevated potassium, mildly elevated cholesterol, low vitamin D Plan Patient was informed and verbally consented to the use of an ambient scribe for clinic note documentation during this visit. 1. Hypertension The patient is currently on metoprolol 50 mg once daily for hypertension management. Blood pressure was recorded at 150/40 mmHg, indicating the need for continued monitoring and potential adjustment of therapy. 2. Hypercholesterolemia The patient's LDL cholesterol level was noted to be 142 mg/dL, which is above the target of less than 130 mg/dL. Dietary modifications were discussed to help manage cholesterol levels. 3. Vitamin D Deficiency Vitamin D levels were found to be low, and supplementation was recommended. 4. Urinary Tract Infection (Uti) The patient had a previous UTI in July, and urinary health monitoring is advised. Discussion Notes During the visit, we discussed the management of hypertension with metoprolol and the importance of monitoring blood pressure regularly. We also reviewed the patient's cholesterol levels and emphasized dietary changes to manage hypercholesterolemia. Vitamin D supplementation was recommended due to low levels, and we discussed the need for regular follow-up for dementia and cognitive impairment. Urinary health was addressed, with plans for monitoring due to a previous UTI. Patient Instructions - Continue taking metoprolol 50 mg daily for blood pressure management. - Follow a heart-healthy diet to manage cholesterol levels. - Take vitamin D supplements as recommended. - Monitor urinary symptoms and report any changes. - Schedule regular follow-ups for dementia and cognitive health. Orders: Orders UA CC w/rflx Micro + Cult Today R30.0 - Dysuria
--- OUTSIDE RECORDS SUMMARY | 2024-12-08 13:56 | XMS_ITS | Patient Health Record ---
Author Organization [facility] Address [address] [place] [address] Care Team Providers Care Management Professor Name Role Phone Po Marie STACK Primary Care Provider Satish Villagran [phone] Reason For Referral No Information Problems Problem Type SNOMED Code ICD Code Onset Dates Problem Status W/U Status Risk Notes Problem Dysphagia ([id number]) Dysphagia (R13.10) Active confirmed Plan Of Treatment No Information Insurance Providers Payer Name Payer Address Payer Phone Subscriber Number Group Number Insured Name Patient Relationship to Insured Coverage Start Date Coverage End Date MEDICARE OF [place] [address] [place] [address] [id number] JANETH WELDON Self - patient is the insured MEDEX ATTN CLAIMS [address] [place] [address] [id number] JANETH WELDON Self - patient is the insured
--- OUTSIDE RECORDS SUMMARY | 2024-12-08 13:56 | XMS_ITS | Clinical Summary ---
Author Organization [facility] Address [address] [place] [address] Phone Care Team Providers Care Mineral Surveying Technician Name Role Phone Tod Goncalves MD Primary [...] VACCINES (1 of 2) 1986 OSTEOPOROSIS SCREENING INITIAL (ONE-TIME) 2001 RSV VACCINE (1 - 1-dose 75+ series) 12/19/2011 PNEUMOCOCCAL VACCINES (50+ years) (2 of 2 - PCV) 05/05/2016 05/05/2015, 07/19/2012 INFLUENZA VACCINE (#1) 2024 , 01/10/2019, 02/20/2018, Additional history exists COVID-19 VACCINE (2 - 2024- season) 2024 05/05/2020 Adult Td,Tdap Booster 12/06/2028 12/06/2018 HEPATITIS [...] file Insurance MEDICARE PART A & B MEDEX SUPPLEMENT MEDICARE PART A & B Member Subscriber Plan / Payer (Ef fective 2001-Present) Name:Janeth Dorado Member ID:[id number] Relation to Subscriber:Self Name:Janeth Dorado Subscriber ID:[id number] Payer ID:[id number] Group ID:Not on file Type:Medicare Address: [employer] [address] [employer] CROSS MEDEX SUPPLEMENT MEDICARE PART A & B [email or web address] MEDEX SUPPLEMENT MEDICARE PART A & B [email or web address] MEDEX SUPPLEMENT MEDICARE PART A & B [email or web address] MEDEX SUPPLEMENT MEDICARE PART A & B [email or web address] MEDEX SUPPLEMENT MEDICARE PART A & B [email or web address] MEDEX SUPPLEMENT MEDICARE PART A & B [email or web address] MEDEX SUPPLEMENT MEDICARE PART A & B [email or web address] MEDEX SUPPLEMENT Care Teams Mineral Surveying Technician Relationship Specialty Start Date End Date Tod Goncalves MD [address] [place] [address] PCP - General 04/05/17 Additional Source Comments The information contained in this document represents components of the legal health record. It is not the complete legal health record.[facility]
--- OUTSIDE RECORDS SUMMARY | 2024-12-08 13:56 | XMS_ITS | Clinical Summary ---
Author Organization [facility] Facility Address [address] [address] Care Team Providers Care Remote Encoding Operations Supervisor Name Role Phone Marie Villanueva MD Primary Care Provider [phone] Social History Tobacco Use Types Packs/Day Years [...] HOSPITAL Medicare [facility] Care Teams Remote Encoding Operations Supervisor Relationship Specialty Start Date End Date Marie Villanueva MD [facility] [address] [place], [place] PCP - General 04/12/20
== END 2024-12-08 12:20 | disposition home or self-care (01) ==
LOC: HO.HMCH 11:14
PROVIDERS: PCP Internal Medicine; Visit Provider Internal Medicine
DX: I10 Essential (primary) hypertension (principal); E78.00 Pure hypercholesterolemia, unspecified; E03.9 Hypothyroidism, unspecified; K21.9 Gastro-esophageal reflux disease without esophagitis; G45.9 Transient cerebral ischemic attack, unspecified; F41.1 Generalized anxiety disorder

== ENCOUNTER → 2024-12-08 11:13 | Outpatient (BNVA) | payer MEDICARE, SELFPAY | PROVIDERS: PCP Internal Medicine; Visit Provider Internal Medicine | DX: I10 Essential (primary) hypertension (principal); E78.00 Pure hypercholesterolemia, unspecified; E03.9 Hypothyroidism, unspecified; K21.9 Gastro-esophageal reflux disease without esophagitis; F41.1 Generalized anxiety disorder; G45.9 Transient cerebral ischemic attack, unspecified | CPT/HCPCS: 99212 ==

== ENCOUNTER 2024-12-08 12:36 | Outpatient (REF) | payer MEDICARE, SELFPAY ==
[2024-12-08 13:31] LABS: Anion Gap 14 (12-20); Blood Urea Nitrogen 10 mg/dL (9-16); Calcium 9.3 mg/dL (8.4-10.2); Carbon Dioxide 27 mmol/L (22-29); Chloride 100 mmol/L (96-108); Estimated Glomerular Filt Rate > 60; Potassium 4.2 mmol/L (3.3-5.1); Sodium 137 mmol/L (135-145)
== END 2024-12-08 12:37 | disposition home or self-care (01) ==
LOC: HO.10HDL 12:36
PROVIDERS: Visit Provider Internal Medicine
DX: E87.5 Hyperkalemia (principal)
CPT/HCPCS: 36415; 80048

== ENCOUNTER 2024-12-11 07:32 | Outpatient (REF) | payer MEDICARE, SELFPAY ==
--- OUTSIDE RECORDS SUMMARY | 2024-12-11 07:36 | XMS_ITS | Patient Health Record ---
Author Organization [facility] Address [address] [place] [address] Care Team Providers Care Solder Deposit Operator Name Role Phone Po Marie STACK Primary Care Provider Satish Villagran [phone] Reason For Referral No Information Problems Problem Type SNOMED Code ICD Code Onset Dates Problem Status W/U Status Risk Notes Problem Dysphagia ([id number]) Dysphagia (R13.10) Active confirmed Plan Of Treatment No Information Insurance Providers Payer Name Payer Address Payer Phone Subscriber Number Group Number Insured Name Patient Relationship to Insured Coverage Start Date Coverage End Date MEDICARE OF [place] [address] [place] [address] [id number] JANETH WELDON Self - patient is the insured MEDEX ATTN CLAIMS [address] [place] [address] [id number] JANETH WELDON Self - patient is the insured
--- OUTSIDE RECORDS SUMMARY | 2024-12-11 07:36 | XMS_ITS | Clinical Summary ---
Author Organization [facility] Facility Address [address] [address] Care Team Providers Care Plastics Fabrication Supervisor Name Role Phone Marie Villanueva MD Primary Care Provider Social History Tobacco [...] age to complete this topic Insurance Medicare [facility] Medicare [facility] Care Teams Plastics Fabrication Supervisor Relationship Specialty Start Date End Date Marie Villanueva MD [facility] [address] [place], [place] PCP - General 04/12/20
--- OUTSIDE RECORDS SUMMARY | 2024-12-11 07:36 | XMS_ITS | Clinical Summary ---
Author Organization [facility] Address [address] [place] [address] Phone Care Team Providers Care Accessibility Lift Technician Name Role Phone Tod Goncalves MD [...] Payer (Ef fective 2001-Present) Name:Janeth Dorado Member ID:[id number] Relation to Subscriber:Self Name:Janeth Dorado Subscriber ID:[id number] Payer ID:[id number] Group ID:Not on file Type:Medicare Address: [employer] [address] [employer]OSS MEDEX SUPPLEMENT MEDICARE PART A & B [employer] MEDEX SUPPLEMENT MEDICARE PART A & B [employer] MEDEX SUPPLEMENT MEDICARE PART A & B [employer] MEDEX SUPPLEMENT MEDICARE PART A & B [employer] MEDEX SUPPLEMENT MEDICARE PART A & B [employer] MEDEX SUPPLEMENT MEDICARE PART A & B [employer] MEDEX SUPPLEMENT MEDICARE PART A & B [employer] MEDEX SUPPLEMENT Care Teams Accessibility Lift Technician Relationship Specialty Start Date End Date Tod Goncalves MD [address] [place] [address] PCP - General 04/05/17 Additional Source Comments The information contained in this document represents components of the legal health record. It is not the complete legal health record.[facility]
[2024-12-11 11:46] LABS: Appearance Urine Clear; Glucose Urine UA Negative (Negative); PH 6.5 (5.0-9.0); Specific Gravity - Urine <= 1.005 (1.005-1.025); UMIC TRIGGER UACC YES
== END 2024-12-11 07:33 | disposition home or self-care (01) ==
LOC: HO.10HDLNP 07:32
PROVIDERS: Visit Provider Internal Medicine
DX: R30.0 Dysuria (principal)
CPT/HCPCS: 81001

== ENCOUNTER 2025-01-29 17:07 | Inpatient (IN) | payer MEDICARE, SELFPAY ==
--- NOTE | ~2025-01-29 | MR_ITS ---
EXAMINATION: MRCP HISTORY: resolution of obs hepatopathy COMPARISON: Previous CT of the abdomen and pelvis and MRCP January 30, 2025 TECHNIQUE: Axial gradient echo in and out of phase T1, axial T2 and fat suppressed T2, and coronal haste T2 with fat saturation images were obtained through the abdomen. 3D MRCP Reconstructed images and thick slab imaging of the biliary tree were obtained. FINDINGS: The lung bases are clear. Liver normal in size, signal and contour. No focal liver lesion. Upper normal size gallbladder measuring 9.2 x 5.2 x 4.4 cm. Multiple small gallstones. Small amount of pericholecystic fluid versus gallbladder wall edema similar to previous exam. There is intra and extrahepatic biliary duct dilatation. Common bile duct measures up to 15 mm. This is similar to previous exam. There is still a distal common bile duct measuring 7 x 10 mm. This has moved into the most distal common bile duct just proximal to the ampulla. There is a cyst in the tail the pancreas measuring 4.5 mm axial image 16 series 5. Pancreas otherwise normal. Normal spleen. Normal adrenal glands. Small bright T2 renal left lesions incompletely characterized measuring up to 9 mm. These may represent cysts. Kidneys otherwise unremarkable. Mild diverticulosis of the colon. Small esophageal hernia. No aneurysm. No ascites. No enlarged lymph nodes. Degenerative changes of the spine and scoliosis. Old appearing T12 vertebral body compression fracture. MR/MR MRCP IMPRESSION: Intra and extrahepatic biliary duct dilatation from a 7 x 10 mm distal common bile duct stone. Stone has moved distally in the common bile duct. Biliary duct dilatation appears unchanged. Upper normal size gallbladder with multiple gallstones and question of trace pericholecystic fluid versus gallbladder wall edema. This is similar to previous exam. Clinically correlate for cholecystitis. Cyst in the tail of the pancreas measuring 5 mm. 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 Several small bright T2 lesions in the left kidney. These are incompletely characterized but may represent small cysts. Electronically signed by: Desirae Munoz MD 02/03/2025 04:18 [facility]
--- NOTE | ~2025-01-29 | MR_ITS ---
EXAMINATION: MRCP HISTORY: choledocholithiasis COMPARISON: Relation is made with a CT of the abdomen without contrast dated 01/30/2025. TECHNIQUE: Axial gradient echo in and out of phase T1, axial T2 and fat suppressed T2, and coronal haste T2 with fat saturation images were obtained through the abdomen. 3D MRCP Reconstructed images and thick slab imaging of the biliary tree were obtained. FINDINGS: There is no significant loss of signal intensity within the liver on opposed phase imaging to suggest steatosis. The gallbladder is distended and demonstrates intraluminal calculi. There is a small amount of pericholecystic fluid. There is mild dilatation of central intrahepatic biliary radicles. The common bile duct is moderately dilated measuring up to 13 mm in diameter. There is a 10 mm calculus in the mid to distal common bile duct. The spleen, pancreas, and adrenals are unremarkable. The pancreatic duct is normal in caliber. There are subcentimeter probable cysts in both kidneys. No retroperitoneal lymphadenopathy is identified. There is moderate levoscoliosis and degenerative disc disease of the spine. MR/MR MRCP IMPRESSION: 1. Distended gallbladder with cholelithiasis and a small amount of pericholecystic fluid. Findings may represent acute cholecystitis. 2. Choledocholithiasis. Electronically signed by: Satish Macias MD 01/30/2025 01:23 PM EDT
--- NOTE | ~2025-01-29 | CT_ITS ---
CLINICAL HISTORY: high fever --- Additional Notes or Special Instructions: pt had earlier CT HEAD AND NECK CT chest without contrast Comparison: None provided Findings: Limited evaluation without intravenous contrast. Images degraded by patient motion artifact. The heart size is within normal limits. No pericardial effusion. Atherosclerotic vascular disease with no aneurysm of thoracic aorta. Mild bilateral basilar opacities likely atelectasis. No pleural effusion or pneumothorax. Thyroid is very small. Thoracic esophagus within normal limits. Hiatal hernia. The visualized thyroid and mediastinum are unremarkable. Diffuse demineralization. Moderate compression fracture of T12 vertebral body which could be nonacute. IMPRESSION: 1. No acute findings in the chest on noncontrast study. 2. Moderate compression fracture of T12 vertebral body and diffuse demineralization. This could be nonacute but clinical correlation is recommended. This document has been electronically signed by: Colleen Rizzo MD on 01/30/2025 00:46:51
--- NOTE | ~2025-01-29 | CT_ITS ---
CLINICAL HISTORY: Stroke Protocol CT angiography head and neck with contrast. 3D Postprocessing. Comparison: CT/SR - CT ANGIO HEAD NECK STROKE - 12/08/23 18:45 EDT Findings: Atherosclerotic vascular disease. The arch vessels are patent. Left common carotid artery slightly larger than the right. No hemodynamically significant stenosis. Atherosclerotic vascular disease at left carotid bifurcation and origin of left internal carotid artery with no hemodynamically significant stenosis. No hemodynamically significant stenosis on the right. Bilateral internal carotid arteries are patent in the right appears somewhat larger than the left. Bilateral external carotid arteries are patent. Bilateral vertebral arteries are patent. There is focal stable stenosis of left vertebral artery proximal to vertebral basilar junction. Bilateral intracranial internal carotid arteries are patent. Atherosclerotic vascular disease of bilateral cavernous segments Vertebral basilar junction is unremarkable and basilar artery appears unremarkable. Bilateral anterior cerebral arteries are patent. Bilateral middle cerebral arteries are patent with interval worsening of stenosis involving the right M1 segment. Significant focal stenosis/occlusion short segments of posterior cerebral arteries bilaterally similar to previous examination with reconstitution no aneurysm. Thyroid is small. Prevertebral soft tissues within normal limits. No fluid collection in the neck. Lung apices are grossly clear. No acute fracture. Degenerative changes cervical spine. IMPRESSION: 1. Atherosclerotic vascular disease in the neck appears stable with no hemodynamically significant stenosis. 2. CT angiography head demonstrates focal hemodynamically significant stenosis/occlusion of posterior cerebral arteries bilaterally with reconstitution similar to previous examination. 3. Interval worsening of stenosis involving right M1 segment middle cerebral artery. Otherwise stable findings. This document has been electronically signed by: Colleen Rizzo MD on 01/29/2025 19:03:40
--- NOTE | ~2025-01-29 | CT_ITS ---
CLINICAL HISTORY: Stroke ProtocolL deficits CT head without contrast Comparison: CT/SR - CT HEAD/BRAIN WO IV CON - 08/23/24 13:45 EDT Findings: No intra-axial mass, midline shift, hydrocephalus, or acute hemorrhage. There is atrophy. There are nonspecific bilateral supratentorial white matter hypodensities most suggestive of chronic small-vessel ischemic changes. Minimal bilateral nonacute basal ganglia lacunar infarcts. Small focal encephalomalacia in left occipital lobe consistent with nonacute infarct. Atherosclerotic vascular disease. There is no sinus or mastoid fluid. Right nasal septum deviation. The orbits are within normal limits. There is no acute skull fracture. IMPRESSION: 1. No acute intracranial findings. 2. Nonacute findings as described. This document has been electronically signed by: Colleen Rizzo MD on 01/29/2025 17:47:37
--- NOTE | ~2025-01-29 | CT_ITS ---
CLINICAL HISTORY: high fever --- Additional Notes or Special Instructions: had contrast earlier with HEAD AND NECK CT abdomen and pelvis without contrast Comparison: None provided Findings: Limited evaluation without intravenous contrast. No consolidation or effusion. Fcwok-et-pajurhrk hiatal hernia. Gallbladder is distended consistent with hydrops with small stones in the dependent part. Possible intrahepatic biliary ductal dilatation. Common bile duct appears prominent measuring up to 1 cm. There is a 9 mm round density likely in distal aspect common bile duct suspicious for choledocholithiasis. Unenhanced spleen within normal limits. Pancreas somewhat atrophic. No peripancreatic inflammatory changes. Adrenal glands are normal. Excreted contrast in bilateral renal collecting systems and bilateral ureters with no hydronephrosis or hydroureter. No bowel obstruction, pneumoperitoneum, or pneumatosis. Colonic diverticulosis with no definite acute diverticulitis. No significant free fluid. Uterus is present. Excreted contrast in the urinary bladder which is only slightly filled. Atherosclerotic vascular disease with no aneurysm of the abdominal aorta. Levocurvature of the lumbar spine consistent with scoliosis. Diffuse demineralization. Moderate compression fracture of T12 vertebral body of indeterminate age. Degenerative changes bilateral hips. IMPRESSION: 1. Distended gallbladder with multiple small stones in the gallbladder with no definite CT findings to suggest acute cholecystitis. If indicated follow-up ultrasound should be obtained. 2. Common bile duct is dilated with a 9 mm suspected stone in the common bile duct. Correlate with LFTs. If clinically indicated follow-up MRCP or ERCP could be obtained. 3. Diverticulosis, hiatal hernia and additional nonacute findings in the abdomen pelvis. 4. Diffuse demineralization with moderate compression fracture of T12 vertebral body could be nonacute. Correlate clinically. 5. Additional nonacute findings as described. This document has been electronically signed by: Colleen Rizzo MD on 01/30/2025 00:55:38
--- NOTE | ~2025-01-29 | MR_ITS ---
EXAMINATION: MR BRAIN WITHOUT CONTRAST CLINICAL INFORMATION: Concerning stroke. COMPARISON: December 03, 2023. Correlated to recent CT dated January 29, 2025. TECHNIQUE: MRI of the brain was obtained using routine sequences without contrast. FINDINGS: There are punctate hyperintense T2 FLAIR restricted diffusion signal abnormality in the left frontoparietal huang radiata white matter/centrum semiovale involving the medial aspect of the left postcentral gyrus. There is a subtle restricted diffusion signal in the right frontal centrum semiovale. No acute intracranial hemorrhage, mass effect, midline shift, hydrocephalus or herniation. Bilateral multifocal patchy and punctate deep periventricular white matter subcortical and deep white matter hyperintense T2 FLAIR signal involving centrum semiovale and huang radiata. Old lacunar infarcts with the cribriform pattern in the basal ganglia. Old lacunar infarct in the left thalamus. Macrocystic encephalomalacia, left: Views/calcarine fissure. Old lacunar infarcts in the cerebellar hemispheres. Flow-void signal within the main cerebral vessels is normal. Prominence of the extra-axial CSF spaces cerebral sulci and ventricles involving mostly frontotemporal lobes. Sellar/suprasellar region demonstrated no signal abnormality or masses. Normal position of the cerebellar tonsils. MR/MR head/brain wo con IMPRESSION: Acute nonhemorrhagic likely embolic watershed distribution ischemia involving mostly the left centrum semiovale and huang radiata and to a lesser extent on the right, the most conspicuous in the medial left postcentral gyrus. Prior vascular insult left CYCLE CONSULTANT territory. Small vessel occlusive disease. Bifrontal lobe and temporal lobe atrophy. Electronically signed by: Marcio Mercado MD 01/30/2025 08:37 AM EDT
--- NOTE | ~2025-01-29 | XR_ITS ---
CLINICAL HISTORY: suspect PNA, COVID 2 view chest x-ray Comparison: CR/SR - XR CHEST 1 VIEW - 03/15/24 11:06 EST Findings: Heart size is somewhat enlarged and stable. Atherosclerotic vascular disease of the aortic arch. Low lung volumes. No consolidation, significant pleural effusion or pneumothorax. Mild interstitial changes similar to previous examination which could be chronic. No acute fracture. Diffuse demineralization. Degenerative changes bilateral shoulders. IMPRESSION: 1. No acute findings. This document has been electronically signed by: Colleen Rizzo MD on 01/29/2025 21:07:25
--- NOTE | 2025-01-29 17:13 | ECG_ITS ---
Test Reason : STROKE Blood Pressure : */* mmHG Vent. Rate : 81 BPM Atrial Rate : * BPM P-R Int : * ms QRS Dur : 90 ms QT Int : 390 ms P-R-T Axes : * -28 4 degrees QTcB Int : 453 ms Normal sinus rhythm Minimal voltage criteria for LVH, may be normal variant ( R in aVL ) Nonspecific ST abnormality Abnormal ECG When compared with ECG of 17-May-2024 14:49, No significant changes seen Referred By: Alexander Go Electronically Signed By: BABAK GEORGE
[2025-01-29 17:17] LABS: Prothrombin Time Whole Bld POC 13.5 sec (11.1-13.5); ~PT, ~INR - Anti Coag Clinic 1.1 (0.9-1.1)
[2025-01-29 17:18] LABS: Glucose, Whole Blood 110 mg/dL (60-115)
--- NOTE | 2025-01-29 17:18 | ED_ITS ---
HPI - Neuro Symptoms/Deficit General Chief Complaint: Stroke Stated Complaint: UNKN TIME, SLURRED SPEECH, LT FACIAL DROOP, WEAK Time Seen by Provider: 01/29/25 17:12 History of Present Illness ED Provider: Alexander Go MD HPI Narrative: [age] female brought in for slurred speech generalized weakness possible left-sided deficits. Family says he has a fluctuating last well may have transiently been last night before she went to bed but she awoke with the symptoms. Related Data Home Medications ?Medication ?Instructions ?Recorded ?Confirmed acetaminophen 500 mg tablet 1,000 mg PO DAILY PRN Pain 12/03/23 01/29/25 loratadine 10 mg tablet 10 mg PO DAILY PRN Allergy S ymptoms 01/29/25 01/29/25 omeprazole 20 mg capsule,delayed 20 mg PO BID@0630,163 0 01/29/25 01/29/25 release Previous Rx's ?Medication ?Instructions ?Recorded aspirin 81 mg tablet,delayed 81 mg PO DAILY #30 tabs 0 10/01/23 release low height rollator #1 ea 10/26/23 magnesium oxide 400 mg PO DAILY #90 caps metoprolol succinate 50 mg 50 mg PO DAILY #90 tabs 06/24 tablet,extended release 24 hr levothyroxine 88 mcg tablet 88 mcg PO DAILY@0600 90 da ys #90 10/28/24 tabs levetiracetam 1,000 mg tablet 1,000 mg PO BID #180 tab s 10/31/24 lorazepam 1 mg tablet 0.5 mg (1/2 x 1 mg) PO DAILY @1700 01/24/25 anxiety #45 tabs Allergies Allergy/AdvReac Type Severity Reaction Status Date / Time hydrochlorothiazide Allergy Unknown Electrolyte Verified 01/29/25 17:50 abnormality oxycodone (OXYCODONE) Allergy Unknown VOMITTING,C Verified 01/29/25 17:50 ONFUSION amlodipine AdvReac Intermediate leg Verified 01/29/25 17:50 swelling lisinopril AdvReac Intermediate cough Verified 01/29/25 17:50 losartan AdvReac Intermediate hyponatremi Verified 01/29/25 17:50 a [facility] Past Medical History Medical History 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 Facial droop Cerebral infarction Left leg DVT Upper respiratory infection COVID-19 virus infection Burning with urination Buttock pain Status post fall Dog bite of right arm Adult general medical exam Screening for diabetes mellitus Impacted cerumen of both ears Facial lesion Overweight (BMI 25.0-29.9) Hip osteoarthritis T12 vertebral fracture Reactive airways dysfunction syndrome Pneumonia Cholelithiasis CVA (cerebral vascular accident) Obesity (BMI 30-39.9) Hypercholesterolemia Vitamin D deficiency Hypothyroid Seizure disorder Anxiety Gout GERD (gastroesophageal reflux disease) Psoriatic arthritis Hypertension Surgical History History of Mohs surgery for squamous cell carcinoma of skin History of cataract surgery History of colonoscopy History of knee replacement procedure of right knee History of left knee replacement Family History Family History Father No problems noted. Mother Acute CVA (cerebrovascular accident) Diabetes Brother Cancer Daughter History of nephrectomy Son Heart disease Social History Social History Household Members: Family Household Members Other:: Daughter (Katie) and son-in-law Housing: House Alcohol intake: never Patient Tobacco Use Status: Never used Tobacco Tobacco use type: Cigarette Smoked in Last 30 Days: No e-Cigarette/Vaping Use: Never Used Second Hand Smoke Exposure: No Use of substances other than those prescribed or required for medical reasons: No Advance Directives: Yes Advance Directives on File: Yes Advance Directives Date on File: 12/04/23 Do you have a plan to hurt others: No Plan Patient : No service: No Current occupational status: retired Cognitive needs: No Hearing needs: Yes (hearing aides) Vision needs: No Physical Exam 2 Exam: Exam: GENERAL: Well appearing. Awake. Making eye contact following most commands. Subtle perhaps left nasolabial fold flattening. HEAD/NECK: No visual trauma. EYES: Normal to inspection. No conjunctival erythema. No discharge. Symmetric eye closure pupils 2-3 mm symmetric reactive. ENMT: Hearing grossly normal. External nose normal. RESPIRATORY: Respiratory effort normal. CARDIOVASCULAR: Additional details (Grossly well perfused). Heart regular no murmurs SKIN: No jaundice. NEUROLOGICAL: Alert. , left nasolabial fold flattening, slight slurring and/or aphasic speech. 3/5 left upper extremity strength proximally. Weak lead technical architect strength left upper extremity. Remainder of extremities 5/5. No gross ataxia visual field deficits PSYCHIATRIC: Alert. Appearance appropriate for situation. Vital Signs: Vital Signs: Last Vital Signs Temp 98.0 F 01/30/25 08:42 Pulse 82 01/30/25 10:21 Resp 17 01/30/25 08:42 BP 150/64 H 01/30/25 10:21 Pulse Ox 95 01/30/25 10:21 O2 Del Method Room Air 01/30/25 08:42 BMI result Body Mass Index 23.0 Course Reevaluation(s) Reevaluation #1: 7:49 PM 01/29/2025 (Dr. Alexander Go): Nurse notified me she felt the patient felt a little bit warm at this time and got a rectal temp it was 100.5. I will add blood cultures on ceftriaxone try to get a urinalysis. No other clear identifiable clinical source of infection Medications Administered Generic Name Dose Route Start Last Admin Trade Name Freq PRN Reason Stop Dose Admin Enoxaparin Sodium 40 mg 01/29/25 20:15 01/29/25 20:38 Enoxaparin Sodium 40 Mg/0.4 Ml Syringe SUBCUT 40 mg Q24H MORENO Administration Piperacillin Sod/Tazobactam 50 mls @ 100 mls/hr 01/29/25 23:00 01/30/25 06:27 Sod 3.375 gm/ Sodium Chloride IV Infused Q6H OMRENO Infusion Levetiracetam 1,000 mg 01/30/25 09:00 01/30/25 09:13 Levetiracetam 1,000 Mg Tablet PO 1,000 mg BID MORENO Administration Levothyroxine Sodium 88 mcg 01/30/25 08:30 01/30/25 09:14 Levothyroxine Sodium 88 Mcg Tablet PO 88 mcg DAILY@0600 MORENO Administration Magnesium Oxide 400 mg 01/30/25 09:00 01/30/25 09:14 Magnesium Oxide 400 Mg Tablet PO 400 mg DAILY MORENO Administration Metoprolol Succinate 50 mg 01/30/25 09:00 01/30/25 09:14 Metoprolol Succinate Er 50 Mg Tab.Er.24h PO 50 mg DAILY MORENO Administration Protocol Pantoprazole Sodium 40 mg 01/30/25 06:30 01/30/25 06:27 Pantoprazole Sodium 40 Mg/10 Ml Vial IVPUSH 40 mg DAILY@0630 MORENO Administration Senna 17.2 mg 01/29/25 21:00 01/29/25 20:38 Sennosides 8.6 Mg Tablet PO 17.2 mg BEDTIME MORENO Administration Sodium Chloride 3 ml 01/30/25 00:00 01/30/25 07:12 0.9 % Sodium Chloride Flush 3 Ml Syringe IVFLUSH Not Given QSHIFT MORENO Discontinued Medications Generic Name Dose Route Start Last Admin Trade Name Kenanq PRN Reason Stop Dose Admin Acetaminophen 975 mg 01/29/25 19:47 01/29/25 19:53 Acetaminophen 325 Mg Tablet PO 01/29/25 19:48 975 mg ONCE ONE Administration Aspirin 325 mg 01/29/25 19:20 01/29/25 19:48 Aspirin 325 Mg Tablet PO 01/29/25 19:21 325 mg ONCE ONE Administration Sodium Chloride 1,000 mls @ 999 mls/hr 01/29/25 20:00 01/29/25 21:08 Ns IV 01/29/25 21:00 Infused .Q1H1M MORENO Infusion Ceftriaxone Sodium 1 gm/ 50 mls @ 100 mls/hr 01/29/25 19:47 01/29/25 20:35 Sodium Chloride IV 01/29/25 20:16 Infused ONCE ONE Infusion Iohexol 100 ml 01/29/25 17:54 01/29/25 17:54 Iohexol 350 Mg/Ml 100 Ml Infus..Btl IV 01/29/25 17:55 70 ml ONCE ONE Administration Ketorolac Tromethamine 15 mg 01/29/25 20:40 01/29/25 21:10 Ketorolac Tromethamine 15 Mg/Ml Vial IVPUSH 01/29/25 20:41 15 mg ONCE ONE Administration Potassium Chloride 20 meq 01/30/25 06:16 01/30/25 06:40 Potassium Chloride Packet 20 Meq Packet PO 01/30/25 06:17 20 meq ONCE ONE Administration Medical Decision Making Medical Decision Making MDM Narrative: Medical Decision Makin-year-old female sounds like she has had stuttering stroke symptoms over the past few days. On arrival EMS thought last known well was 2 days prior but it sounds like the symptoms has been fluctuating family saw her last night. But patient awoke today again with slurred speech and they felt she was weak. Unclear what delayed family calling 911 for evaluation this evening but she is out of tPA window she is however within 24 hour stroke window so stroke alert was activated. See NIH stroke scale on arrival documented incomplete below which was 6. I was contacted about 18:20 by Radiology with negative acute stroke imaging. The patient herself is a very poor historian family has not yet arrived by 18:40. Presumed subacute CVA or fluctuating symptoms/TIA. There was no LVO no tPA indications MAT. Looks like an old ischemic area on my wet reading of the CT. Preliminary Favored Differential Diagnosis: CVA, TIA, metabolic or infectious encephalopathy, brain mass, brain hemorrhage among additional considered etiologies Testing Interpreted Independently: ?EKG: Sinus rhythm rate 83 QTC 453 Radiology or Lab testing Results Reviewed: ?CT/CTA no acute pathology I did not note worsening stenosis right M1 could be leading to the patient's symptoms if there is perhaps spasm Lactate 2.4 no lactate greater than 4 or hypotension to indicate aggressive 30 cc/kg bolus patient did get antibiotics and IV fluid Consults: Discussed with real Radiology, radiology service with no acute pathology on the stroke imaging Independent Historians/External Chart Reviews: ?Daughter later arrived providing some additional history sounds like the patient's symptoms has been fluctuating for days she did not notice any focality felt like the speech was off over the past 2 days has been fluctuating though Social Determinants of Health Impacting MDM/Planning: ?See below for details Lab Data MDM Lab Attestation statement: I reviewed the patient's lab results. 01/30/25 02:37 01/30/25 02:37 Labs: Lab Results 01/29/25 01/29/25 01/29/25 Range/Units 17:12 17:13 17:39 WBC 5.9 (4.8-10.8) X10*3/uL RBC 3.58 L (4.20-5.50) X10*6/uL Hgb 10.7 L (12.0-16.0) g/dl Hct 32.8 L (37.0-47.0) % MCV 91.6 (80.0-98.0) fL MCH 29.9 (27.0-33.0) pg MCHC 32.6 (31.0-35.0) g/dl RDW 12.0 (11.0-16.0) % Plt Count 99 L D (160-400) X10*3/uL MPV Not Reportable Immature Gran % (Auto) 0.3 (0.0-0.4) % Neut % (Auto) 85.9 H (45-73) % Lymph % (Auto) 4.2 L (20-40) % [place]yenne % (Auto) 9.1 (2-11) % Eos % (Auto) 0.3 (0-4) % Baso % (Auto) 0.2 (0-2) % Lymph # (Auto) 0.3 L (1.2-4.9) X10*3/uL [place] # (Auto) 0.5 (0.1-1.2) X10*3/uL Eos # (Auto) 0.0 (0.0-0.4) X10*3/uL Baso # (Auto) 0.0 (0.0-0.2) X10*3/uL Abs Immat Gran (auto) 0.02 (0.00-0.03) X10*3/uL Absolute Neuts (auto) 5.1 (2.0-8.3) x10*3/uL Absolute Nucleated RBC 0.000 (0.0-0.012) X10*3/uL Nucleated RBC % (auto) 0.0 (0.0-0.2) /100WBC PT 13.3 H (10.9-12.4) SEC Whole Blood PT 13.5 (11.1-13.5) sec INR 1.2 H (0.9-1.1) Whole Blood INR 1.1 (0.9-1.1) APTT 28.3 (26.7-34.1) SEC Sodium 132 L (135-145) mmol/L Potassium 3.5 (3.3-5.1) mmol/L Chloride 100 (96-108) mmol/L Carbon Dioxide 24 (22-29) mmol/L Anion Gap 12 (12-20) BUN 19 H (9-16) mg/dL Creatinine 0.81 (0.5-1.4) mg/dL Estim Creat Clear Calc 37.9 Estimated GFR > 60 POC Glucose 110 (60-115) mg/dL Random Glucose 100 (60-115) mg/dL Calcium 8.1 L D (8.4-10.2) mg/dL Phosphorus 2.6 L (2.7-4.5) mg/dL Magnesium 2.0 (1.6-2.6) mg/dL Total Bilirubin 0.6 (0.0-1.0) mg/dL Direct Bilirubin 0.2 (0.0-0.5) mg/dL AST 23 (5-31) U/L ALT 8 (0-31) U/L Alkaline Phosphatase 55 (39-117) U/L Troponin I High Sens 12.9 D (<3.5-17.0) ng/L NT-Pro-B Natriuret Pep 892.1 H (<300) pg/mL Total Protein 5.4 L (6.5-8.0) g/dL Albumin 3.0 L (3.5-5.0) g/dL Triglycerides 92 (<150) mg/dL Cholesterol 113 (<200) mg/dL LDL Cholesterol, Calc 69 (<100) mg/dL HDL Cholesterol 26 L (>40) mg/dL Lipase 11 (8-78) U/L TSH 0.30 L (0.32-4.0) uIU/mL Free T4 1.31 (0.71-1.85) ng/dL 10/30/25 Range/Units 18:01 WBC (4.8-10.8) X10*3/uL RBC (4.20-5.50) X10*6/uL Hgb (12.0-16.0) g/dl Hct (37.0-47.0) % MCV (80.0-98.0) fL MCH (27.0-33.0) pg MCHC (31.0-35.0) g/dl RDW (11.0-16.0) % Plt Count (160-400) X10*3/uL MPV Immature Gran % (Auto) (0.0-0.4) % Neut % (Auto) (45-73) % Lymph % (Auto) (20-40) % [place] % (Auto) (2-11) % Eos % (Auto) (0-4) % Baso % (Auto) (0-2) % Lymph # (Auto) (1.2-4.9) X10*3/uL [place] # (Auto) (0.1-1.2) X10*3/uL Eos # (Auto) (0.0-0.4) X10*3/uL Baso # (Auto) (0.0-0.2) X10*3/uL Abs Immat Gran (auto) (0.00-0.03) X10*3/uL Absolute Neuts (auto) (2.0-8.3) x10*3/uL Absolute Nucleated RBC (0.0-0.012) X10*3/uL Nucleated RBC % (auto) (0.0-0.2) /100WBC PT (10.9-12.4) SEC Whole Blood PT (11.1-13.5) sec INR (0.9-1.1) Whole Blood INR (0.9-1.1) APTT (26.7-34.1) SEC Sodium (135-145) mmol/L Potassium (3.3-5.1) mmol/L Chloride (96-108) mmol/L Carbon Dioxide (22-29) mmol/L Anion Gap (12-20) BUN (9-16) mg/dL Creatinine (0.5-1.4) mg/dL Estim Creat Clear Calc Estimated GFR POC Glucose 92 (60-115) mg/dL Random Glucose (60-115) mg/dL Calcium (8.4-10.2) mg/dL Phosphorus (2.7-4.5) mg/dL Magnesium (1.6-2.6) mg/dL Total Bilirubin (0.0-1.0) mg/dL Direct Bilirubin (0.0-0.5) mg/dL AST (5-31) U/L ALT (0-31) U/L Alkaline Phosphatase (39-117) U/L Troponin I High Sens (<3.5-17.0) ng/L NT-Pro-B Natriuret Pep (<300) pg/mL Total Protein (6.5-8.0) g/dL Albumin (3.5-5.0) g/dL Triglycerides (<150) mg/dL Cholesterol (<200) mg/dL LDL Cholesterol, Calc (<100) mg/dL HDL Cholesterol (>40) mg/dL Lipase (8-78) U/L TSH (0.32-4.0) uIU/mL Free T4 (0.71-1.85) ng/dL Independent Interpretation Interpretation: NIH Stroke Scale/Score (NIHSS) from [employer] on 01/29/2025 All calculations should be rechecked by clinician prior to use RESULT SUMMARY: 6 points NIH Stroke Scale INPUTS: 1A: Level of consciousness ?> 0 = Alert; keenly responsive 1B: Ask month and age ?> 1 = 1 question right 1C: 'Blink eyes' & 'squeeze hands' ?> 0 = Performs both tasks 2: Horizontal extraocular movements ?> 0 = Normal 3: Visual espinoza ?> 0 = No visual loss 4: Facial palsy ?> 1 = Minor paralysis (flat nasolabial fold, smile asymmetry) 5A: Left arm motor drift ?> 2 = Some effort against gravity 5B: Right arm motor drift ?> 0 = No drift for 10 seconds 6A: Left leg motor drift ?> 0 = No drift for 5 seconds 6B: Right leg motor drift ?> 0 = No drift for 5 seconds 7: Limb Ataxia ?> 0 = No ataxia 8: Sensation ?> 0 = Normal; no sensory loss 9: Language/aphasia ?> 1 = Mild-moderate aphasia: some obvious changes, without significant limitation 10: Dysarthria ?> 1 = Mild-moderate dysarthria: slurring but can be understood 11: Extinction/inattention ?> 0 = No abnormality Independent Historian Clinical information obtained from an independent historian. History obtained from or confirmed by: EMS Critical Care Time Critical Care Time Critical Care Time: Yes Total Critical Care Time: 30 Attestation: ED Critical Care: Stroke alert activation acute neurologic symptoms Authorized and Performed by: Alexander Go MD Total critical care time: Approximately 30 min Due to a high probability of clinically significant, life threatening deterioration, the patient required my highest level of preparedness to intervene emergently and I personally spent this critical care time directly and personally managing the patient. This critical care time included obtaining a history; examining the patient; pulse oximetry; ordering and review of studies; arranging urgent treatment with development of a management plan; evaluation of patient's response to treatment; frequent reassessment; and, discussions with other providers. This critical care time was performed to assess and manage the high probability of imminent, life-threatening deterioration that could result in multi-organ failure. It was exclusive of separately billable procedures and treating other patients and teaching time. Discharge Plan Discharge Clinical Impression: Dysarthria, Fever Patient Disposition: Admitted As Inpatient
[2025-01-29 17:32] VITALS: BP 122/58; BP 137/56; PULSE 78; PULSE 80; RESP 16; TEMP 36.6; O2SAT 95; O2SAT 98; BMI 23.0
--- NOTE | 2025-01-29 17:37 | ECG_ITS ---
Test Reason : STROKE Blood Pressure : */* mmHG Vent. Rate : 83 BPM Atrial Rate : 83 BPM P-R Int : 210 ms QRS Dur : 96 ms QT Int : 386 ms P-R-T Axes : 5 -28 2 degrees QTcB Int : 453 ms Sinus rhythm with 1st degree A-V block Moderate voltage criteria for LVH, may be normal variant ( R in aVL , Luis Carlos product ) Nonspecific ST abnormality Abnormal ECG When compared with ECG of 29-Jan-2025 17:36, No significant changes seen Referred By: Mack Zavala Electronically Signed By: BABAK GEORGE
[2025-01-29 17:48] LABS: Imm Gran Abs Auto 0.02 X10*3/uL (0.00-0.03); Imm Gran Pct Auto 0.3 % (0.0-0.4); NRBC Abs Auto 0.000 X10*3/uL (0.0-0.012); NRBC Pct Auto 0.0 /100WBC (0.0-0.2); PLT CLUMP 1; SCAN SMEAR FLAG 1
[2025-01-29 17:50] LABS: Hematocrit 32.8 % (37.0-47.0); Hemoglobin 10.7 g/dl (12.0-16.0); Lymphocytes Absolute Auto 0.3 X10*3/uL (1.2-4.9); Mean Corpuscular HGB Conc 32.6 g/dl (31.0-35.0); Mean Corpuscular Hemoglobin 29.9 pg (27.0-33.0); Mean Corpuscular Volume 91.6 fL (80.0-98.0); Red Blood Count 3.58 X10*6/uL (4.20-5.50)
[2025-01-29] MEDS: iohexoL 350 MG/ML 100 ML INFUS..BTL IV (17:54)
[2025-01-29 17:59] LABS: INTERNATIONAL NORM RATIO 1.2 (0.9-1.1); Prothrombin Time 13.3 SEC (10.9-12.4)
[2025-01-29 18:00] LABS: White Blood Count 5.9 X10*3/uL (4.8-10.8)
[2025-01-29 18:01] LABS: Partial Thromboplastin Time 28.3 SEC (26.7-34.1)
[2025-01-29 18:04] LABS: Stroke Lab Use COMPLETE
[2025-01-29 18:05] LABS: Glucose, Whole Blood 92 mg/dL (60-115)
[2025-01-29 18:06] LABS: Anion Gap 12 (12-20); Blood Urea Nitrogen 19 mg/dL (9-16); Calcium 8.1 mg/dL (8.4-10.2); Carbon Dioxide 24 mmol/L (22-29); Chloride 100 mmol/L (96-108); Cholesterol 113 mg/dL (<200); Creatinine Clr Calc Pharmacy 37.9; Estimated Glomerular Filt Rate > 60; HDL Cholesterol 26 mg/dL (>40); Potassium 3.5 mmol/L (3.3-5.1); Sodium 132 mmol/L (135-145); Triglycerides 92 mg/dL (<150)
[2025-01-29 18:09] LABS: Troponin-I High Sensitivity 12.9 ng/L (<3.5-17.0)
[2025-01-29 18:17] VITALS: BP 132/58; PULSE 78; RESP 14; TEMP 36.9; O2SAT 96
[2025-01-29 18:35] LABS: MANUAL DIFF FLAG NO; Platelet Count 99 X10*3/uL (160-400)
--- OUTSIDE RECORDS SUMMARY | 2025-01-29 18:39 | XMS_ITS | Clinical Summary ---
Author Organization [facility] Address [address] [place] [address] Phone Care Team Providers Care Fiber Technologist Name Role Phone Tod Goncalves MD Primary [...] Payer (Ef fective 2001-Present) Name:Janeth Dorado Member ID:[id number] Relation to Subscriber:Self Name:Janeht Dorado Subscriber ID:[id number] Payer ID:[id number] Group ID:Not on file Type:Medicare Address: [employer] [address] [employer] MEDEX SUPPLEMENT MEDICARE PART A & B [employer] MED[employer] SUPPLEMENT MEDICARE PART A & B [employer] SUPPLEMENT MEDICARE PART A & B [employer] SUPPLEMENT MEDICARE PART A & B [employer] SUPPLEMENT MEDICARE PART A & B [employer] SUPPLEMENT MEDICARE PART A & B [employer] SUPPLEMENT MEDICARE PART A & B [employer] MED[employer] SUPPLEMENT Care Teams Fiber Technologist Relationship Specialty Start Date End Date Tod Goncalves MD [address] [place] [address] PCP - General 04/05/17 Additional Source Comments The information contained in this document represents components of the legal health record. It is not the complete legal health record.[facility]
--- OUTSIDE RECORDS SUMMARY | 2025-01-29 18:39 | XMS_ITS | Clinical Summary ---
Author Organization [facility] Address [address] [address] Care Team Providers Care Truck Body Builder Name Role Phone Marie Villanueva MD Primary Care Provider [phone] Social History Tobacco Use Types Packs/Day Years [...] age to complete this topic Insurance Medicare [facility] Medicare [facility] Care Teams Truck Body Builder Relationship Specialty Start Date End Date Marie Villanueva MD [facility] [address] [place], [place] PCP - General 04/12/20
--- OUTSIDE RECORDS SUMMARY | 2025-01-29 18:39 | XMS_ITS | Patient Health Record ---
Author Organization [facility] Address [address] [place] [address] Care Team Providers Care Technical Publications Manager Name Role Phone Po Marie STACK Primary Care Provider Satish Villagran [phone] Reason For Referral No Information Problems Problem Type SNOMED Code ICD Code Onset Dates Problem Status W/U Status Risk Notes Problem Dysphagia (35778423) Dysphagia (R13.10) Active confirmed Plan Of Treatment No Information Insurance Providers Payer Name Payer Address Payer Phone Subscriber Number Group Number Insured Name Patient Relationship to Insured Coverage Start Date Coverage End Date MEDICARE OF [place] [address] [place] [address] [phone] [id number] JANETH WELDON Self - patient is the insured [employer] ATTN CLAIMS [address] [place] [address] [id number] JANETH WELDON Self - patient is the insured
--- NOTE | 2025-01-29 20:18 | PM.IMHP ---
History of Present Illness Date of Service: 01/29/25 Attending physician on admission: Mack Zavala Chief Complaint: dry persistent cough, chills, vomiting Patient is an 89 Old female with past medical history GERD, psoriatic arthritis, osteoarthritis, bilateral knee replacements, first degree AVB. CVA, LLE DVT, UTI, Seizure Disorder, basal cell skin cancer on the forehead, hypothyroidism, allergic rhinitis, anxiety, hypertension, urinary incontinence was brought in by ambulance for complaints of weakness to the point that patient can no longer walk with her walker, with 2 episodes of vomiting 1 on Sunday and then last evening. Patient did attend a wedding of 250 people this past Sunday and then by Sunday was only able to attend a half day of her senior [employer] day program. Patient's daughter present and reports that patient has started experiencing chills, possible rigors with noted confusion. When patient arrived to the ED there was consideration that patient was experiencing a stroke and had an NIHSS score of 6. Head CT and CTA of the neck were completed and found no hemodynamically significant stenosis with baseline stenosis/occlusion of posterior cerebral arteries bilaterally with reconstitution similar to a previous exam. The scans also noted interval worsening of stenosis involving the right M1 segment middle cerebral artery. Patient's stroke-like symptoms that were seen earlier have resolved. Patient then developed a temp of 100.5 degrees along with continued chills and a dry persistent cough. Currently there is high suspicion that patient has an infectious process, bacterial versus viral. Pt denies any recent seizure activity. Currently blood cultures have been collected and lactic acid is pending. Patient was started on ceftriaxone in the ED. We will add doxycycline if chest x-ray positive. UA also pending. Two-view chest x-ray has been requested. Patient was exposed to contrast for CTs of the head and neck so currently unable to perform CT of the abdomen and pelvis, chest. Renal function currently stable. Patient is on lactated Ringer's at 125 mls per hour and will receive 1 L bolus. Patient also receiving Tylenol. BNP is elevated. Last echo 2023 notes moderate mitral annular calcification. Pt presents euvolemic. Patient denies any nausea, vomiting, chest pain, lower leg pain, headache and verbally states that her previous symptoms related to stroke presentation are resolved. This movie writer is unable to assess patient's gait as she is currently too weak to stand but otherwise neuro exam is within normal limits at this time. 2214 after admitted while in the ED, rectal temp 103, cooling blanket started. CT CHest, ABD and Pelvis ordered. Pt now on Zosyn. IVF continue. LA 2.4. With treatment temp down to 99.[address] abd notes CBD dilated 1 mm with 9 mm round density, evidence of choledolithiasis without choleycystitis, Radiologist rec LFTs and possible MRCP - diverticulosis without diverticulitis, small to moderate hiatal hernia, moderate compression fracture T12 indeterminate age CT chest: no acute findings to include PNA, pulmonary edema Review of Systems Review of Systems: Patient denies any chest pain, shortness of breath at rest but is having a persistent dry cough. Patient and daughter state that patient was at a wedding this past Sunday with 250 people and was feeling well on that day. By Sunday patient was vomiting. Patient has had 2 episodes of vomiting since Sunday with no evidence of aspiration. Appetite has been poor. Today patient is so weak that she was not able to walk with her walker. Patient denies any falls. 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 Facial droop Cerebral infarction Left leg DVT Upper respiratory infection COVID-19 virus infection Burning with urination Buttock pain Status post fall Dog bite of right arm Adult general medical exam Screening for diabetes mellitus Impacted cerumen of both ears Facial lesion Overweight (BMI 25.0-29.9) Hip osteoarthritis T12 vertebral fracture Reactive airways dysfunction syndrome Pneumonia Cholelithiasis CVA (cerebral vascular accident) Obesity (BMI 30-39.9) Hypercholesterolemia Vitamin D deficiency Hypothyroid Seizure disorder Anxiety Gout GERD (gastroesophageal reflux disease) Psoriatic arthritis Hypertension Cognitive capacity: Alert and orientated x3 Functional capacity: uses cane/walker Patient : No Family History Father No problems noted. Mother Acute CVA (cerebrovascular accident) Diabetes Brother Cancer Daughter History of nephrectomy Son Heart disease Surgical History History of Mohs surgery for squamous cell carcinoma of skin History of cataract surgery History of colonoscopy History of knee replacement procedure of right knee History of left knee replacement Social History Household Members: Family Household Members Other:: Daughter (Katie) and son-in-law Housing: House Alcohol intake: never Patient Tobacco Use Status: Never used Tobacco Tobacco use type: Cigarette Smoked in Last 30 Days: No e-Cigarette/Vaping Use: Never Used Second Hand Smoke Exposure: No Use of substances other than those prescribed or required for medical reasons: No Advance Directives: Yes Advance Directives on File: Yes Advance Directives Date on File: 12/04/23 Do you have a plan to hurt others: No Plan Patient : No service: No Current occupational status: retired Cognitive needs: No Hearing needs: Yes (hearing aides) Vision needs: No Ebola Risk: Travel/Contact With Anyone From Affected Area/s: No Has Patient Experienced Ebola Symptoms: No Meds Allergies Allergy/AdvReac Type Severity Reaction Status Date / Time hydrochlorothiazide Allergy Unknown Electrolyte Verified 01/29/25 17:50 abnormality oxycodone (OXYCODONE) Allergy Unknown VOMITTING,C Verified 01/29/25 17:50 ONFUSION amlodipine AdvReac Intermediate leg Verified 01/29/25 17:50 swelling lisinopril AdvReac Intermediate cough Verified 01/29/25 17:50 losartan AdvReac Intermediate hyponatremi Verified 01/29/25 17:50 a Active Medications: Current Medications Acetaminophen (Acetaminophen 325 Mg Tablet) 650 mg PO Q6H PRN PRN Reason: Pain, Mild 1-3,fever,headache Acetaminophen (Acetaminophen Supp 650 Mg Supp.Rect) 650 mg WI Q6H PRN PRN Reason: Pain, Mild 1-3,fever,headache Albuterol/Ipratropium (Albuterol/Iprat 2.5/0.5mg 3 Ml Ampul.Neb) 3 ml INHALE Q4H PRN PRN Reason: Shortness of Breath/Wheezing Calcium Carbonate (Calcium Carbonate 750 Mg Tab.Chew) 750 mg PO Q4H PRN PRN Reason: Heartburn Enoxaparin Sodium (Enoxaparin Sodium 40 Mg/0.4 Ml Syringe) 40 mg SUBCUT Q24H MORENO Guaifenesin (Guaifenesin 200 Mg/10 Ml 10 Ml Liquid) 10 ml PO Q4H PRN PRN Reason: Cough Sodium Chloride (Ns) 1,000 mls @ 999 mls/hr IV .Q1H1M MORENO Stop: 01/29/25 21:00 Last Admin: 01/29/25 19:55 Dose: 999 mls/hr Magnesium Hydroxide (Milk Of Magnesia 30 Ml Oral.Susp) 30 ml PO DAILY PRN PRN Reason: Constipation Melatonin (Melatonin 3 Mg Tablet) 6 mg PO BEDTIME PRN PRN Reason: Insomnia Ondansetron HCl (Ondansetron Hcl 4 Mg/2 Ml Vial) 4 mg IVPUSH Q8H PRN PRN Reason: Nausea and Vomiting Polyethylene Glycol (Polyethylene Glycol 3350 17 Gm Powd.Pack) 17 gm PO DAILY PRN PRN Reason: Constipation Senna (Sennosides 8.6 Mg Tablet) 17.2 mg PO BEDTIME [facility] Sodium Chloride (0.9 % Sodium Chloride Flush 3 Ml Syringe) 3 ml IVFLUSH QSHIFT [facility] Home Medications ?Medication ?Instructions ?Recorded ?Confirmed ?Last Taken ?Type acetaminophen 500 mg tablet 1,000 mg PO DAILY PRN Pain 12/03/23 01/29/25 Unknown History loratadine 10 mg tablet 10 mg PO DAILY PRN Allergy Symptoms 01/29/25 01/29/25 Unknown History omeprazole 20 mg capsule,delayed 20 mg PO BID@0630,1630 01/29/25 01/29/25 01/29/25 History release Physical Exam Vital Signs and Narrative: Vital Signs: Last Vital Signs Temp 98.4 F 01/29/25 18:17 Pulse 78 01/29/25 18:17 Resp 14 01/29/25 18:17 BP 132/58 L 01/29/25 18:17 Pulse Ox 96 01/29/25 18:17 O2 Del Method Room Air 01/29/25 18:17 BMI result Body Mass Index 23.0 Alert and orientated X3, able to provide some history. Daughter at bedside able to fill the gaps. Neuro: CN II-X11 intact, no deficits, visual acuity intact, unable to view patient's gait currently patient is too weak to walk EYES: PERRLA, EOM intact, sclerae nonicteric, conjunctiva pink ENT: Hard of hearing, no issues with swallowing, uvula midline, lips moist, nares patent no epistaxis, some dentition missing Cardiac: S1 S2 RRR, no murmur, no JVD, no edema in Lower ext Pulmonary: lungs diminished bilateral, upper expiratory wheeze Abdominal: BS active in all 4 quadrants, no guarding, tenderness, rebounding MSK: strength 2/5 upper and lower extremities : no CVA tenderness no bladder distension Extremities: no edema in lower extremities, PT and DP pulses palpable +2 Psych: mood stable, judgement and insight good Patient exhibits intermittent chills, it is not diaphoretic. Skin: Scarring noted on forehead, no new rashes or lesion Results Labs 01/30/25 02:37 01/30/25 02:37 Labs: Laboratory Results - last 24 hr 01/29/25 01/29/25 01/29/25 17:12 17:13 17:39 MCV 91.6 MCH 29.9 MCHC 32.6 RDW 12.0 Plt Count 99 L D MPV Not Reportable Immature Gran % (Auto) 0.3 Neut % (Auto) 85.9 H Lymph % (Auto) 4.2 L [place] % (Auto) 9.1 Eos % (Auto) 0.3 Baso % (Auto) 0.2 Lymph # (Auto) 0.3 L [place] # (Auto) 0.5 Eos # (Auto) 0.0 Baso # (Auto) 0.0 Abs Immat Gran (auto) 0.02 Absolute Neuts (auto) 5.1 Absolute Nucleated RBC 0.000 Nucleated RBC % (auto) 0.0 PT 13.3 H Whole Blood PT 13.5 INR 1.2 H Whole Blood INR 1.1 APTT 28.3 Anion Gap 12 Estim Creat Clear Calc 37.9 Estimated GFR > 60 POC Glucose 110 Random Glucose 100 Calcium 8.1 L D Troponin I High Sens 12.9 D Triglycerides 92 Cholesterol 113 LDL Cholesterol, Calc 69 HDL Cholesterol 26 L 01/29/25 18:01 MCV MCH MCHC RDW Plt Count MPV Immature Gran % (Auto) Neut % (Auto) Lymph % (Auto) [place] % (Auto) Eos % (Auto) Baso % (Auto) Lymph # (Auto) [place] # (Auto) Eos # (Auto) Baso # (Auto) Abs Immat Gran (auto) Absolute Neuts (auto) Absolute Nucleated RBC Nucleated RBC % (auto) PT Whole Blood PT INR Whole Blood INR APTT Anion Gap Estim Creat Clear Calc Estimated GFR POC Glucose 92 Random Glucose Calcium Troponin I High Sens Triglycerides Cholesterol LDL Cholesterol, Calc HDL Cholesterol Imaging Radiologist's Impressions: HEAD CT, HEAD NECK CTA IMPRESSION: 1. Atherosclerotic vascular disease in the neck appears stable with no hemodynamically significant stenosis. 2. CT angiography head demonstrates focal hemodynamically significant stenosis/occlusion of posterior cerebral arteries bilaterally with reconstitution similar to previous examination. 3. Interval worsening of stenosis involving right M1 segment middle cerebral artery. Otherwise stable findings. CT ABD IMPRESSION: 1. Distended gallbladder with multiple small stones in the gallbladder with no definite CT findings to suggest acute cholecystitis. If indicated follow-up ultrasound should be obtained. 2. Common bile duct is dilated with a 9 mm suspected stone in the common bile duct. Correlate with LFTs. If clinically indicated follow-up MRCP or ERCP could be obtained. 3. Diverticulosis, hiatal hernia and additional nonacute findings in the abdomen pelvis. 4. Diffuse demineralization with moderate compression fracture of T12 vertebral body could be nonacute. Correlate clinically. 5. Additional nonacute findings as described. CT CHeST IMPRESSION: 1. No acute findings in the chest on noncontrast study. 2. Moderate compression fracture of T12 vertebral body and diffuse demineralization. This could be nonacute but clinical correlation is recommended. Assessment and Plan (1) TIA (transient ischemic attack): Status: Acute (2) Fever: Qualifiers: Fever type: unspecified Qualified Code(s): R50.9 - Fever, unspecified Status: Acute (3) Choledocholithiasis: Status: Acute (4) Diverticulosis: Status: Acute (5) T12 compression fracture: Qualifiers: Encounter type: initial encounter Qualified Code(s): S22.080A - Wedge compression fracture of T11-T12 vertebra, initial encounter for closed fracture Status: Acute Plan Patient is an 89 Old female with past medical history GERD, psoriatic arthritis, osteoarthritis, bilateral knee replacements, first degree AVB. CVA, LLE DVT, UTI, Seizure Disorder, basal cell skin cancer on the forehead, hypothyroidism, allergic rhinitis, anxiety, hypertension, urinary incontinence was brought in by ambulance for complaints of weakness to the point that patient can no longer walk with her walker, with 2 episodes of vomiting 1 on Sunday and then last evening. Patient did attend a wedding of 250 people this past Sunday and then by Sunday was only able to attend a half day of her [employer] day program. Per ED provider patient initially had slurred speech with possible left-sided deficits which are currently resolved. TIA vs CVA MRI ordered for AM Symptoms currently resolved LIPID, AIC ordered Neurology consulted Echo ordered PT/OT Fever/ chills/ rigors Rectal temp 103 post admission while in the ED CT abd positive for choledolithiasus, 9 mm stone, CBD dilatation 1cm, no cholecystitis (see below), no colitis CT chest negative for PNA, other acute findings, unable to use contrast due to recent CT head and CTA head and neck BC X2 pending, UA neg for UTI COVID, FLU and RSV pending - pt attended wedding this past Sunuday with 250 people, 2 episodes of vomiting since Sunday, no diarrhea VBG 7.45, 32, 54, 22 No leukocytosis, LA 2.4 - 1.2 after fluids UA pending Pt started on ceftriaxone in ED, changed to zosyn noting high rectal temp after admission LR at 125 mls per hour, bolus 1 L Tylenol prn Choledolithiasis, 9 mm bile duct stone with CBD dilatation 1 mm LFTs added GI consulted Pt may need MRCP No evidence of acute cholecystitis T12 moderate compression fracture Likely not acute as pt was dancing at wedding this past Sunday Pt has known osteoporosis Consider further work up if indicated PT eval ordered No pain issues with back at this time Generalized weakness May be secondary to neurological event vs bacterial/ viral illness PT/OT evals ordered Fall prevention measures needed Elevated BNP 859, Trop 12.9 CXR neg for acute findings CT chest pending Echo in AM May be secondary to viral illness Troponin pending Cardiology consult if indicated via work up Hypothyroidism TSH pending Continue levothyroxine Seizure D/O Continue Kepra Pt denies any recent seizure activity Anxiety PRN Ativan GERD Protonix IV Incidental findings via CT scan: diverticulosis and small hiatal hernia. This movie writer did reach out to pt's HCP, pt's son and he confirmed that pt is a full code and is aware of CT ABD findings. DVT prophylaxis: Lovenox MED REC PENDING FULL CODE Quality Stroke Does the patient have a stroke diagnosis?: No Reason for No Anti-thrombotic by Day Two: N/A - Med Ordered VTE Prior VTE?: Yes VTE Risk Level:: Medical - moderate - high VTE Device Contraindication: N/A - Device Ordered VTE Drug Contraindication: N/A - Med Ordered
--- NOTE | 2025-01-29 20:35 | PHA.MEDREC ---
Addendum entered by Alesia Piña RPh 01/29/25 21:30: Reviewed by [facility] Original Note: Pharmacy Consult ? Medication Reconciliation Pharmacy has completed the medication reconciliation. Spoke to patient daughter at bedside to confirm med list. Daughter had a list of patient medications and was able to confirm med list. Patient is no longer taking Mirabegron 25 mg. Patient had all her morning medications today.
[2025-01-29 20:40] LABS: NT Pro B Type Natriuretic Pept 892.1 pg/mL (<300)
[2025-01-29 20:46] LABS: Magnesium 2.0 mg/dL (1.6-2.6)
[2025-01-29 21:27] LABS: Resp Syncy Virus RNA Qual PCR NEGATIVE (Negative); SARS COV2 PCR INHOUSE NEGATIVE (Negative)
[2025-01-29 21:44] LABS: Free T4 (Free Thyroxine) 1.31 ng/dL (0.71-1.85)
[2025-01-29 21:44] LABS: VBG HCO3 22 mmol/L (22-26); VBG O2 % Saturation 82.0 %
[2025-01-29 21:45] LABS: Venous Blood Gas Refer to POC result
[2025-01-29 22:20] VITALS: BP 122/54; PULSE 97; RESP 17; TEMP 39.4; O2SAT 95
[2025-01-29 22:37] LABS: Appearance Urine Clear; Glucose Urine UA Negative (Negative); PH 6.0 (5.0-9.0); Specific Gravity - Urine >= 1.030 (1.005-1.025); UMIC TRIGGER UA YES
--- NOTE | 2025-01-29 22:41 | PC.NURSE ---
cooling blanket applied d/t patient temp elevated 103 per rectal therm. when probe inserted reading is 101.0
[2025-01-29 23:01] LABS: Reflex Lactate? Lactic Acid Added
[2025-01-29 23:38] LABS: ~Lactic Acid-LAB USE ONLY 1.1 mmol/L (0.5-2.0)
[2025-01-30] VITALS (12 sets, daily range): BP systolic 109–170; BP diastolic 61–81; PULSE 71–85; RESP 14–97; TEMP 36.2–37.2; O2SAT 95–97; BMI 22.7; BMI 21.6
[2025-01-30 03:05] LABS: Hematocrit 35.2 % (37.0-47.0); Hemoglobin 11.7 g/dl (12.0-16.0); Imm Gran Abs Auto 0.03 X10*3/uL (0.00-0.03); Imm Gran Pct Auto 0.4 % (0.0-0.4); Lymphocytes Absolute Auto 0.2 X10*3/uL (1.2-4.9); MANUAL DIFF FLAG SCAN; Mean Corpuscular HGB Conc 33.2 g/dl (31.0-35.0); Mean Corpuscular Hemoglobin 30.4 pg (27.0-33.0); Mean Corpuscular Volume 91.4 fL (80.0-98.0); NRBC Abs Auto 0.000 X10*3/uL (0.0-0.012); NRBC Pct Auto 0.0 /100WBC (0.0-0.2); PLT CLUMP 1; Platelet Count 98 X10*3/uL (160-400); Red Blood Count 3.85 X10*6/uL (4.20-5.50); SCAN SMEAR FLAG 1; White Blood Count 6.8 X10*3/uL (4.8-10.8)
[2025-01-30 03:10] LABS: Alanine Aminotransferase 8 U/L (0-31); Albumin Level 3.0 g/dL (3.5-5.0); Alkaline Phosphatase 55 U/L (39-117); Aspartate Amino Transferase 23 U/L (5-31); Lipase 11 U/L (8-78); Total Protein 5.4 g/dL (6.5-8.0)
[2025-01-30 03:13] LABS: Alanine Aminotransferase 13 U/L (0-31); Albumin Level 3.1 g/dL (3.5-5.0); Alkaline Phosphatase 57 U/L (39-117); Anion Gap 11 (12-20); Aspartate Amino Transferase 32 U/L (5-31); Blood Urea Nitrogen 18 mg/dL (9-16); Calcium 8.2 mg/dL (8.4-10.2); Carbon Dioxide 23 mmol/L (22-29); Chloride 104 mmol/L (96-108); Cholesterol 117 mg/dL (<200); Creatinine Clr Calc Pharmacy 41.0; Estimated Glomerular Filt Rate > 60; HDL Cholesterol 24 mg/dL (>40); Potassium 3.2 mmol/L (3.3-5.1); Sodium 135 mmol/L (135-145); Total Protein 5.5 g/dL (6.5-8.0); Triglycerides 100 mg/dL (<150)
--- NOTE | 2025-01-30 04:35 | PC.NURSE ---
pt son at bedside visiting w/her at this time. Attending MD spoke with him on phone and she was notified of his arrival and will come down to speak with him
[2025-01-30] MEDS: Potassium Chloride Packet 20 MEQ PACKET PO (06:40)
--- NOTE | 2025-01-30 07:00 | CA_ITS ---
Transthoracic Echocardiogram Patient (Last, First, Middle): Ankita Dorado M Gender: F Date of : 1935 Age: 89 Procedure Date: 01/30/2025 Procedure Type: Transthoracic Echocardiogram Location: ER Height: 157.48 cm Weight: 56.7 kg BSA: 1.57 m2 Heart Rate: bpm BP: 137 / 68 mmHg Pharmacy General Manager: Referring MD: Liudmila Purdy [employer]- Symptoms: possible CVA, elevated BNP Study Quality: Adequate ECG Rhythm: Sinus Conclusions: - The left ventricular systolic function is normal. The calculated ejection fraction is 61% by biplane method. - There is moderate mitral annular calcification. Findings Left Ventricle Normal left ventricular cavity size. There is mildly increased left ventricular wall thickness. The left ventricular systolic function is normal. The calculated ejection fraction is 61% by biplane method. There is no evidence of regional wall motion abnormalities. Evidence suggests grade I (mild) diastolic dysfunction. Right Ventricle Normal right ventricular cavity size and systolic function. Atria Both atria are normal in size. Aortic Valve The aortic valve was not well visualized. There is no aortic valve stenosis. There is no aortic valve regurgitation. Mitral Valve There is moderate mitral annular calcification. There is mild mitral valve regurgitation. There is no mitral valve stenosis. Pulmonic Valve The pulmonic valve is likely normal. Tricuspid Valve There is trace tricuspid valve regurgitation. There is no evidence of pulmonary hypertension. Great Vessels The asc aorta is normal in size. Venous The inferior vena cava is normal in size and collapses greater than 50% with inspiration. Pericardium/Pleural There is no evidence of pericardial effusion. Prior Study Comparison No significant change compared to prior study dated: 12/03/2023. Measurements 2D Linear Measurements IVSd: 1.36 0.6-0.9/0.6-1.0 cm LVIDd: 3.23 3.9-5.3/4.2-5.9 cm LVIDd Index: 2.06 2.4-3.2/2.2-3.1 cm/m2 LVIDs: 2.05 2.0-3.6 cm LVPWd: 1.30 0.7-1.1 cm Ao Root: 3.00 2.1-3.5 cm LA Diam: 3.40 2.7-3.8/3.0-4.0 cm LAIDs Index: 2.17 1.5-2.3 cm/m2 LV Mass: 177.46 67-162/88-224 g LV Mass Index: 113.03 43-95/49-115 g/m2 LVOT Diam: 1.80 3.0+(-)1.3 cm 2D Systolic Function EF 4C: 69.00 >55% EF 2C: 58.00 >55% EF BiP: 61.30 >55% Mitral Valve MV VTI: 0.26 MV Pk Gary: 1.22 MV Mn Gary: 0.70 MV Pk Grad: 6.00 MV Mn Grad: 2.00 MV Pk E: 0.75 MV PK A: 1.18 MV Decel Time: 87.00 E/A: 0.60 E'Lateral: 4.68 E'Medial: 3.48 E/E' Med: 21.60 E/E' Lat: 16.10 PHT: 26.00 MVA PHT: 8.46 MVA Continuity: 2.56 Decel [place]: 8.64 Aortic Valve AoV Pk Gary: 1.44 AoV Mn Gary: 0.95 AoV VTI: 0.31 AoV Pk Grad: 8.00 Aov Mn Grad: 5.00 TREVER Cont.VTI: 2.10 LVOT LVOT Pk Gary: 1.05 LVOT Mn Gary: 0.74 LVOT VTI: 0.26 LVOT Pk Grad: 4.00 LVOT Mn Grad: 3.00 LVOT Diam: 1.80 LVOT Area: 2.54 Diastolic Function MV Pk E: 0.75 MV Pk A: 1.18 E/A: 0.60 E'Medial: 3.48 E/E' Med: 21.60 E' Laterial: 4.68 E/E' Lat: 16.10 Right Ventricle TAPSE (mm): 26.00 TVS' Gary: 14.00 Tricuspid Valve TR Pk Gary: 2.29 TR Pk Grad: 21.00 RA Press: 3.00 RVSP: 24.00 Great Vessels Aorta Ao Root-2D: 3.00 2.0-3.7 cm Ao Asc: 2.50 2.1-3.4 cm Updated in Other Vendor System with Status of Final Kirk Del Valle MD electronically signed on 01/30/2025 2:56:32 PM with status of Final
--- NOTE | 2025-01-30 07:15 | PC.NURSE ---
patient to MRI
--- NOTE | 2025-01-30 07:32 | PC.NURSE ---
assumed care of patient at 0700, patient is awake and alert, sent to MRI at 0715
[2025-01-30] MEDS: Metoprolol Succinate ER 50 MG TAB.ER.24H PO (09:14)
--- NOTE | 2025-01-30 09:31 | PC.NURSE ---
patient is currently resting quietly in bed, resp even and unlabored. patient palced back on tele monitor after mri. patient son tre is at bedside. patient is alert to self, situation and place, knows the month and day unsure of year. knows her son tre is at bedside. patient takes meds whole with water one at a time. plan of care is on going
--- NOTE | 2025-01-30 09:33 | HO.NURTONUR ---
Ankita brooks) is a pleasant 89F full code who presented to the ED with increased weakness and vomiting. patient was stroke work up due to weakness CT head and neck ruled out stroke, patient worked up for sepsis. patient CT abd showed dilated with 9mm density. patient ambulates at baseline with walker, has not been able to ambulate due to weakness. plan for patient is admit for Tia vs CVA mri, neuro consult, echo, pt/ot Fever virals neg iv abx Choledolithaisis GI consult, possible MRCP. no acute yoshi noted. Gen weakness ? neuro event vs illness. patient has IV access
--- NOTE | 2025-01-30 12:11 | P.CNGI_ITS ---
History of Present Illness Data of Consult Service Date: 01/30/25 Requesting physician: Liudmila Purdy Primary Care Provider: Marie Villanueva MD [facility] Reason for consult: CBD stone This is an 89-year-old female with past medical history of psoriatic arthritis, GERD, first-degree AV block, history of DVT, seizure disorder, history of basal cell cancer status post resection on forehead, hypothyroidism, who was brought to the hospital for weakness and rigors. Patient was seen at bedside along with her daughter who report that she was doing fine up until Sunday when she was sent back from her adult daycare program for having shakes and confusion. She was noted to have subjective fever but it was not measured at home. Family was concerned about possible stroke as patient started slurring her words, appeared more confused, and also had involuntary movement of her left upper extremity. When she came to the hospital, initial assessment ruled out acute stroke. She was noted to be febrile with T-max of 103. Initial CT abdomen pelvis with CBD stone in distal CBD with upstream dilation. However LFTs nonobstructive with normal bili and ALP. Patient herself reports no abdominal pain, nausea, vomiting, she still endorses loss of appetite and weakness. Lives at home with daughter. Intact ADLs and most of IADLs. 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 Facial droop Cerebral infarction Left leg DVT Upper respiratory infection COVID-19 virus infection Burning with urination Buttock pain Status post fall Dog bite of right arm Adult general medical exam Screening for diabetes mellitus Impacted cerumen of both ears Facial lesion Overweight (BMI 25.0-29.9) Hip osteoarthritis T12 vertebral fracture Reactive airways dysfunction syndrome Pneumonia Cholelithiasis CVA (cerebral vascular accident) Obesity (BMI 30-39.9) Hypercholesterolemia Vitamin D deficiency Hypothyroid Seizure disorder Anxiety Gout GERD (gastroesophageal reflux disease) Psoriatic arthritis Hypertension Family History Family History Father No problems noted. Mother Acute CVA (cerebrovascular accident) Diabetes Brother Cancer Daughter History of nephrectomy Son Heart disease Surgical History Surgical History History of Mohs surgery for squamous cell carcinoma of skin History of cataract surgery History of colonoscopy History of knee replacement procedure of right knee History of left knee replacement Social History Social History Household Members: Family Household Members Other:: Daughter (Katie) and son-in-law Housing: House Alcohol intake: never Patient Tobacco Use Status: Never used Tobacco Tobacco use type: Cigarette Smoked in Last 30 Days: No e-Cigarette/Vaping Use: Never Used Second Hand Smoke Exposure: No Use of substances other than those prescribed or required for medical reasons: No Advance Directives: Yes Advance Directives on File: Yes Advance Directives Date on File: 12/04/23 Do you have a plan to hurt others: No Plan Patient : No service: No Current occupational status: retired Cognitive needs: No Hearing needs: Yes (hearing aides) Vision needs: No Travel History Ebola Risk: Travel/Contact With Anyone From Affected Area/s: No Has Patient Experienced Ebola Symptoms: No Meds Allergies Allergy/AdvReac Type Severity Reaction Status Date / Time hydrochlorothiazide Allergy Unknown Electrolyte Verified 01/29/25 17:50 abnormality oxycodone (OXYCODONE) Allergy Unknown VOMITTING,C Verified 01/29/25 17:50 ONFUSION amlodipine AdvReac Intermediate leg Verified 01/29/25 17:50 swelling lisinopril AdvReac Intermediate cough Verified 01/29/25 17:50 losartan AdvReac Intermediate hyponatremi Verified 01/29/25 17:50 a Active Medications: Current Medications Acetaminophen (Acetaminophen 325 Mg Tablet) 650 mg PO Q6H PRN PRN Reason: Pain, Mild 1-3,fever,headache Acetaminophen (Acetaminophen Supp 650 Mg Supp.Rect) 650 mg IN Q6H PRN PRN Reason: Pain, Mild 1-3,fever,headache Albuterol/Ipratropium (Albuterol/Iprat 2.5/0.5mg 3 Ml Ampul.Neb) 3 ml INHALE Q4H PRN PRN Reason: Shortness of Breath/Wheezing Calcium Carbonate (Calcium Carbonate 750 Mg Tab.Chew) 750 mg PO Q4H PRN PRN Reason: Heartburn Enoxaparin Sodium (Enoxaparin Sodium 40 Mg/0.4 Ml Syringe) 40 mg SUBCUT Q24H [facility] Last Admin: 01/29/25 20:38 Dose: 40 mg Guaifenesin (Guaifenesin 200 Mg/10 Ml 10 Ml Liquid) 10 ml PO Q4H PRN PRN Reason: Cough Piperacillin Sod/Tazobactam (Sod 3.375 gm/ Sodium Chloride) 50 mls @ 100 mls/hr IV Q6H [facility] Last Infusion: 01/30/25 06:27 Dose: Infused Levetiracetam (Levetiracetam 1,000 Mg Tablet) 1,000 mg PO BID [facility] Last Admin: 01/30/25 09:13 Dose: 1,000 mg Levothyroxine Sodium (Levothyroxine Sodium 88 Mcg Tablet) 88 mcg PO DAILY@0600 [facility] Last Admin: 01/30/25 09:14 Dose: 88 mcg Lorazepam (Lorazepam 0.5 Mg Tablet) 0.5 mg PO DAILY@1700 [facility] Magnesium Hydroxide (Milk Of Magnesia 30 Ml Oral.Susp) 30 ml PO DAILY PRN PRN Reason: Constipation Magnesium Oxide (Magnesium Oxide 400 Mg Tablet) 400 mg PO DAILY [facility] Last Admin: 01/30/25 09:14 Dose: 400 mg Melatonin (Melatonin 3 Mg Tablet) 6 mg PO BEDTIME PRN PRN Reason: Insomnia Metoprolol Succinate (Metoprolol Succinate Er 50 Mg Tab.Er.24h) 50 mg PO DAILY [facility]; Protocol Last Admin: 01/30/25 09:14 Dose: 50 mg Ondansetron HCl (Ondansetron Hcl 4 Mg/2 Ml Vial) 4 mg IVPUSH Q8H PRN PRN Reason: Nausea and Vomiting Pantoprazole Sodium (Pantoprazole Sodium 40 Mg/10 Ml Vial) 40 mg IVPUSH DAILY@0630 [facility] Last Admin: 01/30/25 06:27 Dose: 40 mg Polyethylene Glycol (Polyethylene Glycol 3350 17 Gm Powd.Pack) 17 gm PO DAILY PRN PRN Reason: Constipation Senna (Sennosides 8.6 Mg Tablet) 17.2 mg PO BEDTIME [facility] Last Admin: 01/29/25 20:38 Dose: 17.2 mg Sodium Chloride (0.9 % Sodium Chloride Flush 3 Ml Syringe) 3 ml IVFLUSH QSHIFT [facility] Last Admin: 01/30/25 07:12 Dose: Not Given Home Medications ?Medication ?Instructions ?Recorded ?Confirmed ?Last Taken ?Type acetaminophen 500 mg tablet 1,000 mg PO DAILY PRN Pain 12/03/23 01/29/25 Unknown History loratadine 10 mg tablet 10 mg PO DAILY PRN Allergy S ymptoms 01/29/25 01/29/25 Unknown History omeprazole 20 mg capsule,delayed 20 mg PO BID@0630,163 0 01/29/25 01/29/25 01/29/25 History release Physical Exam 2 Exam: Exam: Elderly female Scar on forehead abd soft, nontender, nondistended, no rebound or guarding mild lower extremity edema A/Ox3 able to answer most questions appropriately. Vital Signs: Vital Signs: Last Vital Signs Temp 99 F 01/30/25 11:47 Pulse 81 01/30/25 11:47 Resp 26 H 01/30/25 11:47 BP 151/71 H 01/30/25 11:47 Pulse Ox 96 01/30/25 11:47 O2 Del Method Room Air 01/30/25 11:47 BMI result Body Mass Index 23.0 Results Labs 01/30/25 02:37 01/30/25 02:37 Labs: Short CBC 01/29/25 01/30/25 Range/Units 17:39 02:37 WBC 5.9 6.8 (4.8-10.8) X10*3/uL Hgb 10.7 L 11.7 L (12.0-16.0) g/dl Hct 32.8 L 35.2 L (37.0-47.0) % Plt Count 99 L D 98 L (160-400) X10*3/uL BMP 01/29/25 01/30/25 17:39 02:37 Sodium 132 L 135 Potassium 3.5 3.2 L Chloride 100 104 Carbon Dioxide 24 23 BUN 19 H 18 H Creatinine 0.81 0.75 Calcium 8.1 L D 8.2 L Liver Function 01/29/25 01/30/25 Range/Units 17:39 02:37 Total Bilirubin 0.6 0.5 (0.0-1.0) mg/dL Direct Bilirubin 0.2 (0.0-0.5) mg/dL AST 23 32 H (5-31) U/L ALT 8 13 (0-31) U/L Alkaline Phosphatase 55 57 (39-117) U/L Albumin 3.0 L 3.1 L (3.5-5.0) g/dL Urine 01/29/25 Range/Units 22:23 Urine Color Yellow Urine Appearance Clear Urine pH 6.0 (5.0-9.0) Ur Specific [place] >= 1.030 H (1.005-1.025) Urine Protein 300 (3+) H (Neg-Trace) mg/dL Urine Glucose (UA) Negative (Negative) mg/dL Assessment and Plan (1) Choledocholithiasis: Status: Acute (2) Cholelithiasis: Qualifiers: Cholelithiasis location: gallbladder Cholecystitis presence: without cholecystitis Biliary obstruction: without biliary obstruction Qualified Code(s): K80.20 - Calculus of gallbladder without cholecystitis without obstruction Status: Acute (3) Sepsis: Status: Acute Plan Pt presenting with altered mental status and fever consistent with underlying sepsis. At this time source appears to be possible cholangitis despite no abd pain or jaundice. Plan: - MRCP pending - Keep NPO until then - IVF and Abx as per sepsis protocol - Will likely need ERCP for biliary clearance UPDATE: MRCP reviewed. ER[place] [facility] [place], possibly Sunday. Recommend transfer to tertiary care hospital for ERCP for source control and biliary drainage. Procedures Date of Service Date of Service: 01/30/25
--- NOTE | 2025-01-30 12:25 | MHC.CM.PN ---
CM met with Patient and her Daughter/Caregiver/Katie at bedside, in the ED, and addressed IMM with them, providing Patient with the original and a copy will be placed on the chart. Patient lives in a house with her Daughter/Caregiver and she uses a walker to assist with mobility. PT is recommending home with services and CM awaits a return call from Katie to discuss VNA choice. CM has initiated and will follow for dc planning. PCP is Dr. Villanueva and HCP is Son/Paul. Daughter will transport to home at dc.
--- NOTE | 2025-01-30 15:41 | PC.NURSE ---
per Hospitalist, pt can now have clear liquids, pt with no pain, no n/v, drinking nya eloy, family at bedside
--- NOTE | 2025-01-30 15:43 | PM.NEUROCN ---
History of Present Illness Data of Consult Service Date: 01/30/25 Primary Care Provider: Marie Villanueva MD [facility] Reason for consult: Stroke 89 years old woman with complicated underlying medical history was brought to hospital after she was found to be generally weak would also had some nausea and vomiting. Emergency room review me acute signs of stroke that was consideration. She was also febrile and had complaints of chills and being cold and weak prompting diagnosis of sepsis. her blood pressure fluctuated but it was not low enough to suggest that it might have cause cerebral ischemia. An MRI of brain was done that revealed border zone area infarct and this consultation was requested. When I saw her she was still in emergency room. There was no sign of any recent seizure. Review of Systems Review of Systems: Complain of generally weak with chills and being cold. She also had nausea and vomiting. 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 Facial droop Cerebral infarction Left leg DVT Upper respiratory infection COVID-19 virus infection Burning with urination Buttock pain Status post fall Dog bite of right arm Adult general medical exam Screening for diabetes mellitus Impacted cerumen of both ears Facial lesion Overweight (BMI 25.0-29.9) Hip osteoarthritis T12 vertebral fracture Reactive airways dysfunction syndrome Pneumonia Cholelithiasis CVA (cerebral vascular accident) Obesity (BMI 30-39.9) Hypercholesterolemia Vitamin D deficiency Hypothyroid Seizure disorder Anxiety Gout GERD (gastroesophageal reflux disease) Psoriatic arthritis Hypertension Family History Family History Father No problems noted. Mother Acute CVA (cerebrovascular accident) Diabetes Brother Cancer Daughter History of nephrectomy Son Heart disease Surgical History Surgical History History of Mohs surgery for squamous cell carcinoma of skin History of cataract surgery History of colonoscopy History of knee replacement procedure of right knee History of left knee replacement Social History Social History Household Members: Family Household Members Other:: Daughter (Katie) and son-in-law Housing: House Alcohol intake: never Patient Tobacco Use Status: Never used Tobacco Tobacco use type: Cigarette Smoked in Last 30 Days: No e-Cigarette/Vaping Use: Never Used Second Hand Smoke Exposure: No Use of substances other than those prescribed or required for medical reasons: No Advance Directives: Yes Advance Directives on File: Yes Advance Directives Date on File: 12/04/23 Do you have a plan to hurt others: No Plan Patient : No service: No Current occupational status: retired Cognitive needs: No Hearing needs: Yes (hearing aides) Vision needs: No Travel History Ebola Risk: Travel/Contact With Anyone From Affected Area/s: No Has Patient Experienced Ebola Symptoms: No Meds Allergies Allergy/AdvReac Type Severity Reaction Status Date / Time hydrochlorothiazide Allergy Unknown Electrolyte Verified 01/29/25 17:50 abnormality oxycodone (OXYCODONE) Allergy Unknown VOMITTING,C Verified 01/29/25 17:50 ONFUSION amlodipine AdvReac Intermediate leg Verified 01/29/25 17:50 swelling lisinopril AdvReac Intermediate cough Verified 01/29/25 17:50 losartan AdvReac Intermediate hyponatremi Verified 01/29/25 17:50 a Active Medications: Current Medications Acetaminophen (Acetaminophen 325 Mg Tablet) 650 mg PO Q6H PRN PRN Reason: Pain, Mild 1-3,fever,headache Acetaminophen (Acetaminophen Supp 650 Mg Supp.Rect) 650 mg IA Q6H PRN PRN Reason: Pain, Mild 1-3,fever,headache Albuterol/Ipratropium (Albuterol/Iprat 2.5/0.5mg 3 Ml Ampul.Neb) 3 ml INHALE Q4H PRN PRN Reason: Shortness of Breath/Wheezing Calcium Carbonate (Calcium Carbonate 750 Mg Tab.Chew) 750 mg PO Q4H PRN PRN Reason: Heartburn Enoxaparin Sodium (Enoxaparin Sodium 40 Mg/0.4 Ml Syringe) 40 mg SUBCUT Q24H [facility] Last Admin: 01/29/25 20:38 Dose: 40 mg Guaifenesin (Guaifenesin 200 Mg/10 Ml 10 Ml Liquid) 10 ml PO Q4H PRN PRN Reason: Cough Piperacillin Sod/Tazobactam (Sod 3.375 gm/ Sodium Chloride) 50 mls @ 100 mls/hr IV Q6H [facility] Last Admin: 01/30/25 12:27 Dose: 100 mls/hr Levetiracetam (Levetiracetam 1,000 Mg Tablet) 1,000 mg PO BID [facility] Last Admin: 01/30/25 09:13 Dose: 1,000 mg Levothyroxine Sodium (Levothyroxine Sodium 88 Mcg Tablet) 88 mcg PO DAILY@0600 [facility] Last Admin: 01/30/25 09:14 Dose: 88 mcg Lorazepam (Lorazepam 0.5 Mg Tablet) 0.5 mg PO DAILY@1700 [facility] Magnesium Hydroxide (Milk Of Magnesia 30 Ml Oral.Susp) 30 ml PO DAILY PRN PRN Reason: Constipation Magnesium Oxide (Magnesium Oxide 400 Mg Tablet) 400 mg PO DAILY [facility] Last Admin: 01/30/25 09:14 Dose: 400 mg Melatonin (Melatonin 3 Mg Tablet) 6 mg PO BEDTIME PRN PRN Reason: Insomnia Metoprolol Succinate (Metoprolol Succinate Er 50 Mg Tab.Er.24h) 50 mg PO DAILY [facility]; Protocol Last Admin: 01/30/25 09:14 Dose: 50 mg Ondansetron HCl (Ondansetron Hcl 4 Mg/2 Ml Vial) 4 mg IVPUSH Q8H PRN PRN Reason: Nausea and Vomiting Pantoprazole Sodium (Pantoprazole Sodium 40 Mg/10 Ml Vial) 40 mg IVPUSH DAILY@0630 [facility] Last Admin: 01/30/25 06:27 Dose: 40 mg Polyethylene Glycol (Polyethylene Glycol 3350 17 Gm Powd.Pack) 17 gm PO DAILY PRN PRN Reason: Constipation Senna (Sennosides 8.6 Mg Tablet) 17.2 mg PO BEDTIME [facility] Last Admin: 01/29/25 20:38 Dose: 17.2 mg Sodium Chloride (0.9 % Sodium Chloride Flush 3 Ml Syringe) 3 ml IVFLUSH QSHIFT [facility] Last Admin: 01/30/25 07:12 Dose: Not Given Home Medications ?Medication ?Instructions ?Recorded ?Confirmed ?Last Taken ?Type acetaminophen 500 mg tablet 1,000 mg PO DAILY PRN Pain 12/03/23 01/29/25 Unknown History loratadine 10 mg tablet 10 mg PO DAILY PRN Allergy Symptoms 01/29/25 01/29/25 Unknown History omeprazole 20 mg capsule,delayed 20 mg PO BID@0630,1630 01/29/25 01/29/25 01/29/25 History release Physical Exam Vital Signs: Vital Signs: Last Vital Signs Temp 99 F 01/30/25 11:47 Pulse 81 01/30/25 11:47 Resp 18 01/30/25 13:46 BP 151/71 H 01/30/25 11:47 Pulse Ox 96 01/30/25 11:47 O2 Del Method Room Air 01/30/25 11:47 BMI result Body Mass Index 23.0 Neuro: Other: Mental Status: Alert weight finding of problem with a mouth in especially dry mouth. Spontaneity and fluency of speech were intact. Comprehens Cranial Nerves: extraocular muscles were intact. Visual espinoza are full. Face was pendulous. Throat was dry and many teeth were missing. She has difficulty lifting a left arm against gravity. Right arm strength was better. She was able to lift both legs against gravity. Plantars were flat cerebral done speech was slightly slurred. Results Labs 01/30/25 02:37 01/30/25 02:37 Labs: Short CBC 01/29/25 01/30/25 Range/Units 17:39 02:37 WBC 5.9 6.8 (4.8-10.8) X10*3/uL Hgb 10.7 L 11.7 L (12.0-16.0) g/dl Hct 32.8 L 35.2 L (37.0-47.0) % Plt Count 99 L D 98 L (160-400) X10*3/uL BMP 01/29/25 01/30/25 17:39 02:37 Sodium 132 L 135 Potassium 3.5 3.2 L Chloride 100 104 Carbon Dioxide 24 23 BUN 19 H 18 H Creatinine 0.81 0.75 Calcium 8.1 L D 8.2 L Liver Function 01/29/25 01/30/25 Range/Units 17:39 02:37 Total Bilirubin 0.6 0.5 (0.0-1.0) mg/dL Direct Bilirubin 0.2 (0.0-0.5) mg/dL AST 23 32 H (5-31) U/L ALT 8 13 (0-31) U/L Alkaline Phosphatase 55 57 (39-117) U/L Albumin 3.0 L 3.1 L (3.5-5.0) g/dL Urine 01/29/25 Range/Units 22:23 Urine Color Yellow Urine Appearance Clear Urine pH 6.0 (5.0-9.0) Ur Specific [place] >= 1.030 H (1.005-1.025) Urine Protein 300 (3+) H (Neg-Trace) mg/dL Urine Glucose (UA) Negative (Negative) mg/dL [address] [address] Magnetic Resonance Report Signed Patient: Ankita Dorado MR#: [id number] : 1935 Acct:[id number] Age/Sex: 89 / F ADM Date: 01/29/25 Loc: [facility] [place]: Mariama Ortiz MD Ordering Physician: Liudmila Purdy Date of Service: 01/30/25 Procedure(s): MR head/brain wo con Accession Number(s): [id number] cc: Liudmila Purdy; Marie Villanueva MD~ Reason for Exam: rule out CVA EXAMINATION: MR BRAIN WITHOUT CONTRAST CLINICAL INFORMATION: Concerning stroke. COMPARISON: December 03, 2023. Correlated to recent CT dated January 29, 2025. TECHNIQUE: MRI of the brain was obtained using routine sequences without contrast. FINDINGS: There are punctate hyperintense T2 FLAIR restricted diffusion signal abnormality in the left frontoparietal huang radiata white matter/centrum semiovale involving the medial aspect of the left postcentral gyrus. There is a subtle restricted diffusion signal in the right frontal centrum semiovale. No acute intracranial hemorrhage, mass effect, midline shift, hydrocephalus or herniation. Bilateral multifocal patchy and punctate deep periventricular white matter subcortical and deep white matter hyperintense T2 FLAIR signal involving centrum semiovale and huang radiata. Old lacunar infarcts with the cribriform pattern in the basal ganglia. Old lacunar infarct in the left thalamus. Macrocystic encephalomalacia, left: Views/calcarine fissure. Old lacunar infarcts in the cerebellar hemispheres. Flow-void signal within the main cerebral vessels is normal. Prominence of the extra-axial CSF spaces cerebral sulci and ventricles involving mostly frontotemporal lobes. Sellar/suprasellar region demonstrated no signal abnormality or masses. Normal position of the cerebellar tonsils. MR/MR head/brain wo con IMPRESSION: Acute nonhemorrhagic likely embolic watershed distribution ischemia involving mostly the left centrum semiovale and huang radiata and to a lesser extent on the right, the most conspicuous in the medial left postcentral gyrus. Prior vascular insult left [employer] territory. Small vessel occlusive disease. Bifrontal lobe and temporal lobe atrophy. [address] [address] [address] Scan Report Signed Patient: Ankita Dorado MR#: [id number] : 1935 Acct:[id number] Age/Sex: 89 / F ADM Date: 01/29/25 Loc: [facility].ED Attending Dr: Ordering Physician: Alexander Go MD Date of Service: 01/29/25 Procedure(s): CT angio head neck STROKE Accession Number(s): [id number] cc: Alexander Go MD; Po,Marie Renner MD~ Report Number: [id number]: Total DLP = 593.00 mGy-cm Reason for Exam: Stroke Protocol CLINICAL HISTORY: Stroke Protocol CT angiography head and neck with contrast. 3D Postprocessing. Comparison: CT/SR - CT ANGIO HEAD NECK STROKE - 12/08/23 18:45 EDT Findings: Atherosclerotic vascular disease. The arch vessels are patent. Left common carotid artery slightly larger than the right. No hemodynamically significant stenosis. Atherosclerotic vascular disease at left carotid bifurcation and origin of left internal carotid artery with no hemodynamically significant stenosis. No hemodynamically significant stenosis on the right. Bilateral internal carotid arteries are patent in the right appears somewhat larger than the left. Bilateral external carotid arteries are patent. Bilateral vertebral arteries are patent. There is focal stable stenosis of left vertebral artery proximal to vertebral basilar junction. Bilateral intracranial internal carotid arteries are patent. Atherosclerotic vascular disease of bilateral cavernous segments Vertebral basilar junction is unremarkable and basilar artery appears unremarkable. Bilateral anterior cerebral arteries are patent. Bilateral middle cerebral arteries are patent with interval worsening of stenosis involving the right M1 segment. Significant focal stenosis/occlusion short segments of posterior cerebral arteries bilaterally similar to previous examination with reconstitution no aneurysm. Thyroid is small. Prevertebral soft tissues within normal limits. No fluid collection in the neck. Lung apices are grossly clear. No acute fracture. Degenerative changes cervical spine. IMPRESSION: 1. Atherosclerotic vascular disease in the neck appears stable with no hemodynamically significant stenosis. 2. CT angiography head demonstrates focal hemodynamically significant stenosis/occlusion of posterior cerebral arteries bilaterally with reconstitution similar to previous examination. 3. Interval worsening of stenosis involving right M1 segment middle cerebral artery. Otherwise stable findings. Assessment and Plan (1) Cerebral infarction: Qualifiers: Cerebral infarction mechanism: unspecified mechanism Qualified Code(s): I63.9 - Cerebral infarction, unspecified Status: Acute 89 years old woman who probably was suffering from an infectious process and has multiple symptoms related to that including generalized weakness. Initial head CT did not reveal any acute problem while MRI of brain revealed couple of punctate areas of restricted diffusion in left MCA/ DREW territory. Underneath, there were evidence of moderately severe similar chronic ischemic infarctions. She had posterior cerebral artery stenosis on CTA but not in anterior circulation. Also, blood pressure was not to low to suggest that this was hypotension related border zone ischemia. This is probably embolism and with fever, raises possibility of endocarditis. without contrast MRI, 1 could not rule that out. Aggressive treatment of infection based upon cultures is recommended. Procedures Date of Service Date of Service: 01/30/25
--- NOTE | 2025-01-30 16:14 | P.PNIM_ITS ---
Subjective Subjective Date of Service: 01/30/25 Interval History: Patient is lying in bed comfortable. She reports no new complaints or issues today. She is eager to be discharged home- counseled the patient with son by bedside that she is not ready for home yet given multiple medical issues. Patient is in agreement. Review of Systems Review of Systems: Yes all other systems are reviewed and are negative Physical Exam 2 Exam: Exam: General: A&O x3, oriented to time place person and situation. Cardiac: S1, S2 auscultated with no S3/4, no MRG. Well perfused. Respiratory: Normal breath sounds auscultated throughout all lung zones, without wheezing, rales. Normal rate. GI/ : No abdominal pain on light and deep palpation. +ve McBurney's point right upper quadrant. Otherwise no abdominal distention, masses palpated, -ve renal ballottement, no hepatosplenomegaly. No jaundice or scleral icterus MSK: Normal ambulation without pain at bony prominences or musculature,. Frail, cachectic, bitemporal wasting Neurological: No focal neurological deficit identified on physical examination. Normal neurological examination on overview, without obvious CN II-XII abnormalities. Vital Signs: Vital Signs: Last Vital Signs Temp 99 F 01/30/25 11:47 Pulse 81 01/30/25 11:47 Resp 18 01/30/25 13:46 BP 151/71 H 01/30/25 11:47 Pulse Ox 96 01/30/25 11:47 O2 Del Method Room Air 01/30/25 11:47 BMI result Body Mass Index 23.0 Objective Data Active Medications Acetaminophen (Acetaminophen 325 Mg Tablet) 650 mg PO Q6H PRN PRN Reason: Pain, Mild 1-3,fever,headache Acetaminophen (Acetaminophen Supp 650 Mg Supp.Rect) 650 mg RI Q6H PRN PRN Reason: Pain, Mild 1-3,fever,headache Albuterol/Ipratropium (Albuterol/Iprat 2.5/0.5mg 3 Ml Ampul.Neb) 3 ml INHALE Q4H PRN PRN Reason: Shortness of Breath/Wheezing Calcium Carbonate (Calcium Carbonate 750 Mg Tab.Chew) 750 mg PO Q4H PRN PRN Reason: Heartburn Enoxaparin Sodium (Enoxaparin Sodium 40 Mg/0.4 Ml Syringe) 40 mg SUBCUT Q24H [facility] Last Admin: 01/29/25 20:38 Dose: 40 mg Documented By: EDMAR Guaifenesin (Guaifenesin 200 Mg/10 Ml 10 Ml Liquid) 10 ml PO Q4H PRN PRN Reason: Cough Piperacillin Sod/Tazobactam (Sod 3.375 gm/ Sodium Chloride) 50 mls @ 100 mls/hr IV Q6H [facility] Last Admin: 01/30/25 12:27 Dose: 100 mls/hr Documented By: THAIS Levetiracetam (Levetiracetam 1,000 Mg Tablet) 1,000 mg PO BID [facility] Last Admin: 01/30/25 09:13 Dose: 1,000 mg Documented By: SABI Levothyroxine Sodium (Levothyroxine Sodium 88 Mcg Tablet) 88 mcg PO DAILY@0600 [facility] Last Admin: 01/30/25 09:14 Dose: 88 mcg Documented By: SABI Lorazepam (Lorazepam 0.5 Mg Tablet) 0.5 mg PO DAILY@1700 [facility] Magnesium Hydroxide (Milk Of Magnesia 30 Ml Oral.Susp) 30 ml PO DAILY PRN PRN Reason: Constipation Magnesium Oxide (Magnesium Oxide 400 Mg Tablet) 400 mg PO DAILY [facility] Last Admin: 01/30/25 09:14 Dose: 400 mg Documented By: SABI Melatonin (Melatonin 3 Mg Tablet) 6 mg PO BEDTIME PRN PRN Reason: Insomnia Metoprolol Succinate (Metoprolol Succinate Er 50 Mg Tab.Er.24h) 50 mg PO DAILY [facility]; Protocol Last Admin: 01/30/25 09:14 Dose: 50 mg Documented By: SABI Ondansetron HCl (Ondansetron Hcl 4 Mg/2 Ml Vial) 4 mg IVPUSH Q8H PRN PRN Reason: Nausea and Vomiting Pantoprazole Sodium (Pantoprazole Sodium 40 Mg/10 Ml Vial) 40 mg IVPUSH DAILY@0630 [facility] Last Admin: 01/30/25 06:27 Dose: 40 mg Documented By: EDMAR Polyethylene Glycol (Polyethylene Glycol 3350 17 Gm Powd.Pack) 17 gm PO DAILY PRN PRN Reason: Constipation Senna (Sennosides 8.6 Mg Tablet) 17.2 mg PO BEDTIME [facility] Last Admin: 01/29/25 20:38 Dose: 17.2 mg Documented By: EDMAR Sodium Chloride (0.9 % Sodium Chloride Flush 3 Ml Syringe) 3 ml IVFLUSH QSHIFT [facility] Last Admin: 01/30/25 07:12 Dose: Not Given Documented By: SABI Non-Admin Reason: See Note Labs 01/30/25 02:37 01/30/25 02:37 Labs: Laboratory Results - last 24 hr 01/29/25 01/29/25 01/29/25 17:12 17:13 17:39 MCV 91.6 MCH 29.9 MCHC 32.6 RDW 12.0 Plt Count 99 L D MPV Not Reportable Immature Gran % (Auto) 0.3 Neut % (Auto) 85.9 H Lymph % (Auto) 4.2 L Towner % (Auto) 9.1 Eos % (Auto) 0.3 Baso % (Auto) 0.2 Lymph # (Auto) 0.3 L Towner # (Auto) 0.5 Eos # (Auto) 0.0 Baso # (Auto) 0.0 Abs Immat Gran (auto) 0.02 Absolute Neuts (auto) 5.1 Absolute Nucleated RBC 0.000 Nucleated RBC % (auto) 0.0 Smear Tech's Comments PT 13.3 H Whole Blood PT 13.5 INR 1.2 H Whole Blood INR 1.1 APTT 28.3 VBG pH VBG pCO2 VBG pO2 VBG HCO3 VBG O2 Saturation VBG Base Excess Anion Gap 12 Estim Creat Clear Calc 37.9 Estimated GFR > 60 POC Glucose 110 Random Glucose 100 Estimat Average Glucose Hemoglobin A1c % Lactic Acid Lactic Acid F/U @ 2Hr Calcium 8.1 L D Phosphorus 2.6 L Magnesium 2.0 Total Bilirubin 0.6 Direct Bilirubin 0.2 AST 23 ALT 8 Alkaline Phosphatase 55 Troponin I High Sens 12.9 D NT-Pro-B Natriuret Pep 892.1 H Total Protein 5.4 L Albumin 3.0 L Triglycerides 92 Cholesterol 113 LDL Cholesterol, Calc 69 HDL Cholesterol 26 L Lipase 11 TSH 0.30 L Free T4 1.31 Urine Color Urine Appearance Urine pH Ur Specific [place] Urine Protein Urine Glucose (UA) Urine Ketones Urine Blood Urine Nitrite Ur Leukocyte Esterase Urine RBC Urine WBC Ur Squamous Epith Cells Urine Bacteria Hyaline Casts Influenza Type A (PCR) Influenza Type B (PCR) RSV RNA Qual (PCR) SARS-CoV-2 RNA (RT-PCR) 01/29/25 01/29/25 01/29/25 18:01 20:45 20:57 MCV MCH MCHC RDW Plt Count MPV Immature Gran % (Auto) Neut % (Auto) Lymph % (Auto) Towner % (Auto) Eos % (Auto) Baso % (Auto) Lymph # (Auto) Towner # (Auto) Eos # (Auto) Baso # (Auto) Abs Immat Gran (auto) Absolute Neuts (auto) Absolute Nucleated RBC Nucleated RBC % (auto) Smear Tech's Comments PT Whole Blood PT INR Whole Blood INR APTT VBG pH VBG pCO2 VBG pO2 VBG HCO3 VBG O2 Saturation VBG Base Excess Anion Gap Estim Creat Clear Calc Estimated GFR POC Glucose 92 Random Glucose Estimat Average Glucose Hemoglobin A1c % Lactic Acid 2.4 H* Lactic Acid F/U @ 2Hr Calcium Phosphorus Magnesium Total Bilirubin Direct Bilirubin AST ALT Alkaline Phosphatase Troponin I High Sens NT-Pro-B Natriuret Pep Total Protein Albumin Triglycerides Cholesterol LDL Cholesterol, Calc HDL Cholesterol Lipase TSH Free T4 Urine Color Urine Appearance Urine pH Ur Specific [place] Urine Protein Urine Glucose (UA) Urine Ketones Urine Blood Urine Nitrite Ur Leukocyte Esterase Urine RBC Urine WBC Ur Squamous Epith Cells Urine Bacteria Hyaline Casts Influenza Type A (PCR) NEGATIVE Influenza Type B (PCR) NEGATIVE RSV RNA Qual (PCR) NEGATIVE SARS-CoV-2 RNA (RT-PCR) NEGATIVE 01/29/25 01/29/25 01/29/25 21:35 22:23 23:17 MCV MCH MCHC RDW Plt Count MPV Immature Gran % (Auto) Neut % (Auto) Lymph % (Auto) Towner % (Auto) Eos % (Auto) Baso % (Auto) Lymph # (Auto) Towner # (Auto) Eos # (Auto) Baso # (Auto) Abs Immat Gran (auto) Absolute Neuts (auto) Absolute Nucleated RBC Nucleated RBC % (auto) Smear Tech's Comments PT Whole Blood PT INR Whole Blood INR APTT VBG pH 7.45 H VBG pCO2 32 VBG pO2 54 VBG HCO3 22 VBG O2 Saturation 82.0 VBG Base Excess -0.4 Anion Gap Estim Creat Clear Calc Estimated GFR POC Glucose Random Glucose Estimat Average Glucose Hemoglobin A1c % Lactic Acid Lactic Acid F/U @ 2Hr 1.1 Calcium Phosphorus Magnesium Total Bilirubin Direct Bilirubin AST ALT Alkaline Phosphatase Troponin I High Sens NT-Pro-B Natriuret Pep Total Protein Albumin Triglycerides Cholesterol LDL Cholesterol, Calc HDL Cholesterol Lipase TSH Free T4 Urine Color Yellow Urine Appearance Clear Urine pH 6.0 Ur Specific [place] >= 1.030 H Urine Protein 300 (3+) H Urine Glucose (UA) Negative Urine Ketones Trace Urine Blood Moderate (2+) H Urine Nitrite Negative Ur Leukocyte Esterase Trace H Urine RBC 0-2 Urine WBC 11-20 Ur Squamous Epith Cells 0-2 Urine Bacteria None Seen Hyaline Casts 3-5 Influenza Type A (PCR) Influenza Type B (PCR) RSV RNA Qual (PCR) SARS-CoV-2 RNA (RT-PCR) 01/30/25 02:37 MCV 91.4 MCH 30.4 MCHC 33.2 RDW 12.2 Plt Count 98 L MPV 10.5 Immature Gran % (Auto) 0.4 Neut % (Auto) 82.3 H Lymph % (Auto) 3.1 L Towner % (Auto) 11.5 H Eos % (Auto) 2.4 Baso % (Auto) 0.3 Lymph # (Auto) 0.2 L Towner # (Auto) 0.8 Eos # (Auto) 0.2 Baso # (Auto) 0.0 Abs Immat Gran (auto) 0.03 Absolute Neuts (auto) 5.6 Absolute Nucleated RBC 0.000 Nucleated RBC % (auto) 0.0 Smear Tech's Comments VERIFIED PT Whole Blood PT INR Whole Blood INR APTT VBG pH VBG pCO2 VBG pO2 VBG HCO3 VBG O2 Saturation VBG Base Excess Anion Gap 11 L Estim Creat Clear Calc 41.0 Estimated GFR > 60 POC Glucose Random Glucose 95 Estimat Average Glucose 94 Hemoglobin A1c % 4.9 Lactic Acid Lactic Acid F/U @ 2Hr Calcium 8.2 L Phosphorus Magnesium Total Bilirubin 0.5 Direct Bilirubin AST 32 H ALT 13 Alkaline Phosphatase 57 Troponin I High Sens NT-Pro-B Natriuret Pep Total Protein 5.5 L Albumin 3.1 L Triglycerides 100 Cholesterol 117 LDL Cholesterol, Calc 73 HDL Cholesterol 24 L Lipase TSH Free T4 Urine Color Urine Appearance Urine pH Ur Specific [place] Urine Protein Urine Glucose (UA) Urine Ketones Urine Blood Urine Nitrite Ur Leukocyte Esterase Urine RBC Urine WBC Ur Squamous Epith Cells Urine Bacteria Hyaline Casts Influenza Type A (PCR) Influenza Type B (PCR) RSV RNA Qual (PCR) SARS-CoV-2 RNA (RT-PCR) Assessment and Plan (1) Sepsis: Status: Acute (2) Choledocholithiasis: Status: Acute (3) Cholelithiasis: Status: Acute (4) GEGE (acute kidney injury): Status: Acute (5) Cerebral infarction: Status: Acute (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 Sepsis Acute cholecystitis with choledocholithiasis Pyrexia 103F post admission CT abdomen and pelvis revealing choledocholithiasis Blood cultures x2 obtained Lactic acid elevated, and resolved Viral panel -ve Patient has leukopenia at baseline, and normalization of white cells, with neutrophilic shift and monocytic shift Currently receiving Zosyn. Received LR 125 per hour and bolus 1 L Gastroenterology recommendations greatly appreciated MRCP pursued, confirming acute cholecystitis with choledocholithiasis. 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 Neurology consulted, recommendations appreciated Aspirin start 81 mg OD p.o. Pravastatin 80 mg OD p.o. started Passed bedside swallow Speech and language therapy ordered PT and OT ordered ECHO ordered Cardiac telemetry May require apixaban T12 moderate compression fracture Likely not acute as pt was dancing at wed this past Sunday Pt has known osteoporosis Consider further work up if indicated PT eval ordered No pain issues with back at this time Generalized weakness May be secondary to neurological event vs bacterial/ viral illness PT/OT evals ordered Fall prevention measures needed Hypothyroidism TSH pending Continue levothyroxine Seizure D/O Continue Kepra Pt denies any recent seizure activity Anxiety PRN Ativan GERD Protonix IV QUALITY METRICS - VTE: Enoxaparin 40 mg - CODE STATUS: Full code - DIET: Clear liquid Total time managing care of this patient today: 45 minutes. Quality Stroke Does the patient have a stroke diagnosis?: No Reason for No Anti-thrombotic by Day Two: N/A - Med Ordered VTE Prior VTE?: Yes VTE Risk Level:: Medical - moderate - high VTE Device Contraindication: N/A - Device Ordered VTE Drug Contraindication: N/A - Med Ordered
--- NOTE | 2025-01-30 16:47 | HO.NURTONUR ---
pt is oriented to person and place but confused to date, family has been with her most of the day. pt denies pain, no abd discomfort or n/v, just switched from npo to clears and tolerating well, needs an ERCP but wont be able to be done till Sunday , does well with assist x 1 to commode, iv r forearm 18, came in with gen weakness and got a stroke workup, has a hx of previous stroke but no deficits
[2025-01-30] MEDS: 0.9 % Sodium Chloride Flush 3 ML SYRINGE IVFLUSH ×2 (16:57→21:30)
[2025-01-31] MEDS: OLANZapine 10 MG VIAL 5 MG IM (00:04)
[2025-01-31 02:57] VITALS: BP 126/77; PULSE 79; RESP 18; TEMP 36.6; O2SAT 96
[2025-01-31 08:00] VITALS: BP 170/72; PULSE 78; RESP 20; TEMP 36.4; O2SAT 98
--- NOTE | 2025-01-31 09:11 | MHC.CM.PN ---
PT and OT evaluations recommend home with services. [facility] has been referred in the past. Clinical information has been sent to the agency. DP home with services private transport.
[2025-01-31] MEDS: Metoprolol Succinate ER 50 MG TAB.ER.24H PO (09:35)
[2025-01-31] MEDS: 0.9 % Sodium Chloride Flush 3 ML SYRINGE IVFLUSH ×3 (09:35→20:50)
[2025-01-31 10:44] LABS: MANUAL DIFF FLAG NO
[2025-01-31 10:50] LABS: Hematocrit 34.6 % (37.0-47.0); Hemoglobin 11.5 g/dl (12.0-16.0); Imm Gran Abs Auto 0.02 X10*3/uL (0.00-0.03); Imm Gran Pct Auto 0.5 % (0.0-0.4); Lymphocytes Absolute Auto 0.2 X10*3/uL (1.2-4.9); Mean Corpuscular HGB Conc 33.2 g/dl (31.0-35.0); Mean Corpuscular Hemoglobin 30.3 pg (27.0-33.0); Mean Corpuscular Volume 91.1 fL (80.0-98.0); NRBC Abs Auto 0.000 X10*3/uL (0.0-0.012); NRBC Pct Auto 0.0 /100WBC (0.0-0.2); Platelet Count 122 X10*3/uL (160-400); Red Blood Count 3.80 X10*6/uL (4.20-5.50); White Blood Count 4.1 X10*3/uL (4.8-10.8)
[2025-01-31 11:17] LABS: Alanine Aminotransferase 12 U/L (0-31); Albumin Level 3.2 g/dL (3.5-5.0); Alkaline Phosphatase 53 U/L (39-117); Anion Gap 11 (12-20); Aspartate Amino Transferase 39 U/L (5-31); Blood Urea Nitrogen 13 mg/dL (9-16); Calcium 8.5 mg/dL (8.4-10.2); Carbon Dioxide 25 mmol/L (22-29); Chloride 105 mmol/L (96-108); Creatinine Clr Calc Pharmacy 47.3; Estimated Glomerular Filt Rate > 60; Potassium 2.9 mmol/L (3.3-5.1); Sodium 138 mmol/L (135-145); Total Protein 5.8 g/dL (6.5-8.0)
[2025-01-31 11:29] VITALS: BP 158/76; PULSE 80; RESP 18; TEMP 36; O2SAT 96
[2025-01-31] MEDS: Potassium Chloride/H20 10 MEQ/100 ML PIGGYBACK 100 MEQ IV ×4 (13:15→16:43)
[2025-01-31 16:00] VITALS: BP 136/96; PULSE 74; RESP 18; TEMP 36.8; O2SAT 100
--- NOTE | 2025-01-31 16:32 | HO.PM.IMPN ---
Subjective Subjective Date of Service: 01/31/25 Interval History: Feels well today. She is confused today. Discussed case with collaterals including the patient's son and daughter. Patient's family are amenable remaining in hospital pending ERCP that can be performed on Sunday. They are less eager to have the patient transferred to another facility to have the procedure done sooner. Shared decision-making to keep the patient here, with close monitoring. If the patient were to develop worsening sepsis or acute decompensation, she would be transferred to another facility to receive ERCP sooner. Currently, patient is asymptomatic. Review of Systems Review of Systems: Yes all other systems are reviewed and are negative Physical Exam Exam: Exam: General: A&O x3, oriented to time place person and situation. Cardiac: S1, S2 auscultated with no S3/4, no MRG. Well perfused. Respiratory: Normal breath sounds auscultated throughout all lung zones, without wheezing, rales. Normal rate. GI/ : No abdominal pain on light and deep palpation. +ve McBurney's point right upper quadrant. Otherwise no abdominal distention, masses palpated, -ve renal ballottement, no hepatosplenomegaly. No jaundice or scleral icterus MSK: Normal ambulation without pain at bony prominences or musculature,. Frail, cachectic, bitemporal wasting Neurological: No focal neurological deficit identified on physical examination. Normal neurological examination on overview, without obvious CN II-XII abnormalities. Vital Signs: Vital Signs: Last Vital Signs Temp 98.2 F 01/31/25 16:00 Pulse 74 01/31/25 16:00 Resp 18 01/31/25 16:00 BP 136/96 H 01/31/25 16:00 Pulse Ox 100 01/31/25 16:00 O2 Del Method Room Air 01/31/25 16:00 BMI result Body Mass Index 21.6 Objective Data Active Medications Acetaminophen (Acetaminophen 325 Mg Tablet) 650 mg PO Q6H PRN PRN Reason: Pain, Mild 1-3,fever,headache Acetaminophen (Acetaminophen Supp 650 Mg Supp.Rect) 650 mg [place] Q6H PRN PRN Reason: Pain, Mild 1-3,fever,headache Albuterol/Ipratropium (Albuterol/Iprat 2.5/0.5mg 3 Ml Ampul.Neb) 3 ml INHALE Q4H PRN PRN Reason: Shortness of Breath/Wheezing Calcium Carbonate (Calcium Carbonate 750 Mg Tab.Chew) 750 mg PO Q4H PRN PRN Reason: Heartburn Enoxaparin Sodium (Enoxaparin Sodium 40 Mg/0.4 Ml Syringe) 40 mg SUBCUT Q24H [facility] Last Admin: 01/30/25 21:28 Dose: 40 mg Documented By: MOE Guaifenesin (Guaifenesin 200 Mg/10 Ml 10 Ml Liquid) 10 ml PO Q4H PRN PRN Reason: Cough Piperacillin Sod/Tazobactam (Sod 3.375 gm/ Sodium Chloride) 50 mls @ 100 mls/hr IV Q6H [facility] Last Infusion: 01/31/25 10:18 Dose: Infused Documented By: PK Levetiracetam (Levetiracetam 500 Mg Tablet) 1,000 mg PO BID [facility] Last Admin: 01/31/25 09:35 Dose: 1,000 mg Documented By: PK Levothyroxine Sodium (Levothyroxine Sodium 88 Mcg Tablet) 88 mcg PO DAILY@0600 [facility] Last Admin: 01/31/25 06:05 Dose: 88 mcg Documented By: MOE Lorazepam (Lorazepam 0.5 Mg Tablet) 0.5 mg PO DAILY@1700 [facility] Last Admin: 01/30/25 16:54 Dose: 0.5 mg Documented By: THAIS Magnesium Hydroxide (Milk Of Magnesia 30 Ml Oral.Susp) 30 ml PO DAILY PRN PRN Reason: Constipation Magnesium Oxide (Magnesium Oxide 400 Mg Tablet) 400 mg PO DAILY [facility] Last Admin: 01/31/25 09:35 Dose: 400 mg Documented By: PK Melatonin (Melatonin 3 Mg Tablet) 6 mg PO BEDTIME PRN PRN Reason: Insomnia Metoprolol Succinate (Metoprolol Succinate Er 50 Mg Tab.Er.24h) 50 mg PO DAILY [facility]; Protocol Last Admin: 01/31/25 09:35 Dose: 50 mg Documented By: PK Olanzapine (Olanzapine 10 Mg Vial) 5 mg IM ONCE PRN PRN Reason: agitation Last Admin: 01/31/25 00:04 Dose: 5 mg Documented By: MOE Ondansetron HCl (Ondansetron Hcl 4 Mg/2 Ml Vial) 4 mg IVPUSH Q8H PRN PRN Reason: Nausea and Vomiting Pantoprazole Sodium (Pantoprazole Sodium 40 Mg/10 Ml Vial) 40 mg IVPUSH DAILY@0630 [facility] Last Admin: 01/31/25 06:06 Dose: 40 mg Documented By: MOE Polyethylene Glycol (Polyethylene Glycol 3350 17 Gm Powd.Pack) 17 gm PO DAILY PRN PRN Reason: Constipation Senna (Sennosides 8.6 Mg Tablet) 17.2 mg PO BEDTIME [facility] Last Admin: 01/30/25 18:23 Dose: Not Given Documented By: KEELY Non-Admin Reason: pt had loose stool x2 Sodium Chloride (0.9 % Sodium Chloride Flush 3 Ml Syringe) 3 ml IVFLUSH QSHIFT [facility] Last Admin: 01/31/25 09:35 Dose: 3 ml Documented By: TANOSCLEIA Labs 01/31/25 10:19 01/31/25 10:19 Labs: Laboratory Results - last 24 hr 01/31/25 10:19 MCV 91.1 MCH 30.3 MCHC 33.2 RDW 12.0 Plt Count 122 L MPV 10.5 Immature Gran % (Auto) 0.5 H Neut % (Auto) 81.9 H Lymph % (Auto) 4.9 L Garrett % (Auto) 11.2 H Eos % (Auto) 1.0 Baso % (Auto) 0.5 Lymph # (Auto) 0.2 L Garrett # (Auto) 0.5 Eos # (Auto) 0.0 Baso # (Auto) 0.0 Abs Immat Gran (auto) 0.02 Absolute Neuts (auto) 3.4 Absolute Nucleated RBC 0.000 Nucleated RBC % (auto) 0.0 Anion Gap 11 L Estim Creat Clear Calc 47.3 Estimated GFR > 60 Random Glucose 141 H Calcium 8.5 Total Bilirubin 0.5 AST 39 H ALT 12 Alkaline Phosphatase 53 Total Protein 5.8 L Albumin 3.2 L Microbiology Microbiology Results: Microbiology 01/29/25 21:30 Blood Culture - Preliminary Blood - Venous No growth after 24 hours. 01/29/25 20:57 Blood Culture - Preliminary Blood - Venous No growth after 24 hours. 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 Sepsis Acute cholecystitis with choledocholithiasis Pyrexia 103F post admission CT abdomen and pelvis revealing choledocholithiasis Blood cultures x2 obtained Lactic acid elevated, and resolved Viral panel -ve Patient has leukopenia at baseline, and normalization of white cells, with neutrophilic shift and monocytic shift Currently receiving Zosyn. Received LR 125 per hour and bolus 1 L Gastroenterology recommendations greatly appreciated MRCP pursued, confirming acute cholecystitis with choledocholithiasis. 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 Neurology consulted, recommendations appreciated Aspirin start 81 mg OD p.o. Pravastatin 80 mg OD p.o. started Passed bedside swallow Speech and language therapy ordered PT and OT ordered ECHO ordered Cardiac telemetry May require apixaban T12 moderate compression fracture Likely not acute as pt was dancing at wedding this past Sunday Pt has known osteoporosis Consider further work up if indicated PT eval ordered No pain issues with back at this time Generalized weakness May be secondary to neurological event vs bacterial/ viral illness PT/OT evals ordered Fall prevention measures needed Hypothyroidism TSH pending Continue levothyroxine Seizure D/O Continue Kepra Pt denies any recent seizure activity Anxiety PRN Ativan GERD Protonix IV QUALITY METRICS - VTE: Enoxaparin 40 mg - CODE STATUS: Full code - DIET: Clear liquid Total time managing care of this patient today: 45 minutes. Quality Stroke Does the patient have a stroke diagnosis?: No Reason for No Anti-thrombotic by Day Two: N/A - Med Ordered VTE Prior VTE?: Yes VTE Risk Level:: Medical - moderate - high VTE Device Contraindication: N/A - Device Ordered VTE Drug Contraindication: N/A - Med Ordered
[2025-01-31] MEDS: Flu Vacc TS2025-26(6mo up)/PF 0.5 ML SYRINGE IM (16:43)
[2025-01-31 19:13] VITALS: BP 127/82; PULSE 90; RESP 16; TEMP 36.6; O2SAT 94
--- NOTE | 2025-01-31 19:52 | MHC.STROKE ---
01/30/2025 1700 Met with patient and family member at bedside. Pt awake, alert, sitting on commode initially on my arrival. Once patient settled into bed, she was pleasant and engaged in conversation. Pt is oriented to person, place. Some confusion to details surrounding events. Pt was at family wedding this past weekend, dancing. Stroke Education reviewed with patient and family member. We discussed patient's medical history, medications, activity, and social history. All questions answered.
[2025-01-31 23:08] VITALS: BP 153/79; PULSE 81; RESP 18; TEMP 36.4; O2SAT 97
[2025-02-01] VITALS (8 sets, daily range): BP systolic 141–188; BP diastolic 72–89; PULSE 63–86; RESP 16–20; TEMP 36.1–36.9; O2SAT 96–100
[2025-02-01] MEDS: Metoprolol Succinate ER 50 MG TAB.ER.24H PO (04:04)
[2025-02-01] MEDS: levETIRAcetam Oral Soln 500 MG/5 ML 1000 MG PO ×2 (08:54→20:10)
[2025-02-01] MEDS: 0.9 % Sodium Chloride Flush 3 ML SYRINGE IVFLUSH ×3 (08:59→20:10)
--- NOTE | 2025-02-01 15:40 | HO.PM.IMPN ---
Subjective Subjective Date of Service: 02/01/25 Interval History: No new complaints today. Pleasantly confused. No abdominal pain, eating well. Review of Systems Review of Systems: Yes all other systems are reviewed and are negative Physical Exam Exam: Exam: General: A&O x3, oriented to time place person and situation. Cardiac: S1, S2 auscultated with no S3/4, no MRG. Well perfused. Respiratory: Normal breath sounds auscultated throughout all lung zones, without wheezing, rales. Normal rate. GI/ : No abdominal pain on light and deep palpation. +ve McBurney's point right upper quadrant. Otherwise no abdominal distention, masses palpated, -ve renal ballottement, no hepatosplenomegaly. No jaundice or scleral icterus MSK: Normal ambulation without pain at bony prominences or musculature,. Frail, cachectic, bitemporal wasting Neurological: No focal neurological deficit identified on physical examination. Normal neurological examination on overview, without obvious CN II-XII abnormalities. Vital Signs: Vital Signs: Last Vital Signs Temp 98.4 F 02/01/25 11:56 Pulse 72 02/01/25 11:56 Resp 18 02/01/25 11:56 BP 187/85 H 02/01/25 11:56 Pulse Ox 97 02/01/25 11:56 O2 Del Method Room Air 02/01/25 11:56 BMI result Body Mass Index 21.6 Objective Data Active Medications Acetaminophen (Acetaminophen 325 Mg Tablet) 650 mg PO Q6H PRN PRN Reason: Pain, Mild 1-3,fever,headache Acetaminophen (Acetaminophen Supp 650 Mg Supp.Rect) 650 mg [place] Q6H PRN PRN Reason: Pain, Mild 1-3,fever,headache Albuterol/Ipratropium (Albuterol/Iprat 2.5/0.5mg 3 Ml Ampul.Neb) 3 ml INHALE Q4H PRN PRN Reason: Shortness of Breath/Wheezing Amlodipine Besylate (Amlodipine Besylate 5 Mg Tablet) 5 mg PO ONCE ONE; Protocol Stop: 02/01/25 15:38 Amlodipine Besylate (Amlodipine Besylate 10 Mg Tablet) 10 mg PO DAILY [facility]; Protocol Calcium Carbonate (Calcium Carbonate 750 Mg Tab.Chew) 750 mg PO Q4H PRN PRN Reason: Heartburn Enoxaparin Sodium (Enoxaparin Sodium 40 Mg/0.4 Ml Syringe) 40 mg SUBCUT Q24H [facility] Last Admin: 01/31/25 20:43 Dose: 40 mg Documented By: MOE Guaifenesin (Guaifenesin 200 Mg/10 Ml 10 Ml Liquid) 10 ml PO Q4H PRN PRN Reason: Cough Piperacillin Sod/Tazobactam (Sod 3.375 gm/ Sodium Chloride) 50 mls @ 100 mls/hr IV Q6H [facility] Last Infusion: 02/01/25 11:21 Dose: Infused Documented By: PK Levetiracetam (Levetiracetam Oral Soln 500 Mg/5 Ml) 1,000 mg PO BID [facility] Last Admin: 02/01/25 08:54 Dose: 1,000 mg Documented By: PK Levothyroxine Sodium (Levothyroxine Sodium 88 Mcg Tablet) 88 mcg PO DAILY@0600 [facility] Last Admin: 02/01/25 06:54 Dose: 88 mcg Documented By: MOE Lorazepam (Lorazepam 0.5 Mg Tablet) 0.5 mg PO DAILY@1700 [facility] Last Admin: 01/31/25 16:43 Dose: 0.5 mg Documented By: PK Magnesium Hydroxide (Milk Of Magnesia 30 Ml Oral.Susp) 30 ml PO DAILY PRN PRN Reason: Constipation Magnesium Oxide (Magnesium Oxide 400 Mg Tablet) 400 mg PO DAILY [facility] Last Admin: 02/01/25 08:54 Dose: 400 mg Documented By: PK Melatonin (Melatonin 3 Mg Tablet) 6 mg PO BEDTIME PRN PRN Reason: Insomnia Last Admin: 01/31/25 20:43 Dose: 6 mg Documented By: MOE Metoprolol Succinate (Metoprolol Succinate Er 50 Mg Tab.Er.24h) 50 mg PO DAILY [facility]; Protocol Last Admin: 02/01/25 04:04 Dose: 50 mg Documented By: MOE Comments: Early administration per MD [employer]co Zavala d/t high BP Olanzapine (Olanzapine 10 Mg Vial) 5 mg IM ONCE PRN PRN Reason: agitation Last Admin: 01/31/25 00:04 Dose: 5 mg Documented By: MOE Ondansetron HCl (Ondansetron Hcl 4 Mg/2 Ml Vial) 4 mg IVPUSH Q8H PRN PRN Reason: Nausea and Vomiting Pantoprazole Sodium (Pantoprazole Sodium 40 Mg/10 Ml Vial) 40 mg IVPUSH DAILY@0630 [facility] Last Admin: 02/01/25 06:54 Dose: 40 mg Documented By: MOE Polyethylene Glycol (Polyethylene Glycol 3350 17 Gm Powd.Pack) 17 gm PO DAILY PRN PRN Reason: Constipation Senna (Sennosides 8.6 Mg Tablet) 17.2 mg PO BEDTIME [facility] Last Admin: 01/31/25 20:50 Dose: Not Given Documented By: MOE Non-Admin Reason: Loose stool x2 during day Sodium Chloride (0.9 % Sodium Chloride Flush 3 Ml Syringe) 3 ml IVFLUSH QSHIFT [facility] Last Admin: 02/01/25 08:59 Dose: 3 ml Documented By: RIOSCEL Labs 01/31/25 10:19 01/31/25 10:19 Microbiology Microbiology Results: Microbiology 01/29/25 21:30 Blood Culture - Preliminary Blood - Venous No growth after 48 hours. 01/29/25 20:57 Blood Culture - Preliminary Blood - Venous No growth after 48 hours. 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 Sepsis Acute cholecystitis with choledocholithiasis Pyrexia 103F post admission CT abdomen and pelvis revealing choledocholithiasis Blood cultures x2 obtained Lactic acid elevated, and resolved Viral panel -ve Patient has leukopenia at baseline, and normalization of white cells, with neutrophilic shift and monocytic shift Currently receiving Zosyn. Received LR 125 per hour and bolus 1 L Gastroenterology recommendations greatly appreciated MRCP pursued, confirming acute cholecystitis with choledocholithiasis. 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 Neurology consulted, recommendations appreciated Aspirin start 81 mg OD p.o. Pravastatin 80 mg OD p.o. started Passed bedside swallow Speech and language therapy ordered PT and OT ordered ECHO ordered Cardiac telemetry May require apixaban T12 moderate compression fracture Likely not acute as pt was dancing at this past Sunday Pt has known osteoporosis Consider further work up if indicated PT eval ordered No pain issues with back at this time Hypertensive urgency Significantly elevated blood pressure. Multiple medication allergies Starting amlodipine 5 mg We will increase by increments of 5 to adjust blood pressure Generalized weakness May be secondary to neurological event vs bacterial/ viral illness PT/OT evals ordered Fall prevention measures needed Hypothyroidism TSH pending Continue levothyroxine Seizure D/O Continue Kepra Pt denies any recent seizure activity Anxiety PRN Ativan GERD Protonix IV QUALITY [employer]RICS - VTE: Enoxaparin 40 mg - CODE STATUS: Full code - DIET: Clear liquid Total time managing care of this patient today: 45 minutes. Quality Stroke Does the patient have a stroke diagnosis?: No Reason for No Anti-thrombotic by Day Two: N/A - Med Ordered VTE Prior VTE?: Yes VTE Risk Level:: Medical - moderate - high VTE Device Contraindication: N/A - Device Ordered VTE Drug Contraindication: N/A - Med Ordered
[2025-02-02 04:00] VITALS: BP 154/74; PULSE 75; RESP 16; TEMP 36.8; O2SAT 99
[2025-02-02] MEDS: Metoprolol Succinate ER 50 MG TAB.ER.24H PO (07:56)
[2025-02-02] MEDS: levETIRAcetam Oral Soln 500 MG/5 ML 1000 MG PO ×2 (07:56→20:12)
[2025-02-02 08:00] VITALS: BP 149/88; PULSE 79; RESP 18; TEMP 36.4; O2SAT 92
[2025-02-02] MEDS: 0.9 % Sodium Chloride Flush 3 ML SYRINGE IVFLUSH ×2 (08:06→16:35)
--- NOTE | 2025-02-02 09:05 | P.PNIM_ITS ---
Subjective Subjective Date of Service: 02/02/25 Interval History: likely has baseline cognitive disability - she is AXOX3, however unable to comprehend her illness , goes on tangential talk , not able to be redirected LFTs normalized, will repeat MRCP per GI recs and she is a tentative add-on for ERCP tomorrow Pt and family state that no one is telling them whats going on , however today 1st day I took over care - Its been documented by GI physician that she had spoken at length to HCP , and son. Pt states When will I go home? I've a lot of kids, but no one has come to visit me Review of Systems Review of Systems: Yes all other systems are reviewed and are negative, Unobtainable due to mental condition and Unobtainable due to mental status Physical Exam 2 Exam: Exam: General: AOx3, no acute distress, however, appears to be cognitively impaired, unable to verbalize her clinical acuity Resp: CTA bilaterally CVS: S1, S2, RRR GI: +BS, NT, no distention Vital Signs: Vital Signs: Last Vital Signs Temp 98.2 F 02/02/25 04:00 Pulse 75 02/02/25 04:00 Resp 16 02/02/25 04:00 BP 154/74 H 02/02/25 04:00 Pulse Ox 99 02/02/25 04:00 O2 Del Method Room Air 02/02/25 04:00 BMI result Body Mass Index 21.6 Objective Data Active Medications Acetaminophen (Acetaminophen 325 Mg Tablet) 650 mg PO Q6H PRN PRN Reason: Pain, Mild 1-3,fever,headache Acetaminophen (Acetaminophen Supp 650 Mg Supp.Rect) 650 mg [place] Q6H PRN PRN Reason: Pain, Mild 1-3,fever,headache Albuterol/Ipratropium (Albuterol/Iprat 2.5/0.5mg 3 Ml Ampul.Neb) 3 ml INHALE Q4H PRN PRN Reason: Shortness of Breath/Wheezing Amlodipine Besylate (Amlodipine Besylate 10 Mg Tablet) 10 mg PO DAILY [facility]; Protocol Last Admin: 02/02/25 08:00 Dose: 10 mg Documented By: RELL Calcium Carbonate (Calcium Carbonate 750 Mg Tab.Chew) 750 mg PO Q4H PRN PRN Reason: Heartburn Enoxaparin Sodium (Enoxaparin Sodium 40 Mg/0.4 Ml Syringe) 40 mg SUBCUT Q24H [facility] Last Admin: 02/01/25 20:10 Dose: 40 mg Documented By: GÉNESIS Guaifenesin (Guaifenesin 200 Mg/10 Ml 10 Ml Liquid) 10 ml PO Q4H PRN PRN Reason: Cough Piperacillin Sod/Tazobactam (Sod 3.375 gm/ Sodium Chloride) 50 mls @ 100 mls/hr IV Q6H [facility] Last Infusion: 02/02/25 05:53 Dose: Infused Documented By: GÉNESIS Levetiracetam (Levetiracetam Oral Soln 500 Mg/5 Ml) 1,000 mg PO BID [facility] Last Admin: 02/02/25 07:56 Dose: 1,000 mg Documented By: RELL Levothyroxine Sodium (Levothyroxine Sodium 88 Mcg Tablet) 88 mcg PO DAILY@0600 [facility] Last Admin: 02/02/25 06:31 Dose: 88 mcg Documented By: GÉNESIS Lorazepam (Lorazepam 0.5 Mg Tablet) 0.5 mg PO DAILY@1700 [facility] Last Admin: 02/01/25 17:01 Dose: 0.5 mg Documented By: PK Magnesium Hydroxide (Milk Of Magnesia 30 Ml Oral.Susp) 30 ml PO DAILY PRN PRN Reason: Constipation Magnesium Oxide (Magnesium Oxide 400 Mg Tablet) 400 mg PO DAILY [facility] Last Admin: 02/02/25 08:01 Dose: 400 mg Documented By: RELL Melatonin (Melatonin 3 Mg Tablet) 6 mg PO BEDTIME PRN PRN Reason: Insomnia Last Admin: 02/01/25 20:09 Dose: 6 mg Documented By: GÉNESIS Metoprolol Succinate (Metoprolol Succinate Er 50 Mg Tab.Er.24h) 50 mg PO DAILY [facility]; Protocol Last Admin: 02/02/25 07:56 Dose: 50 mg Documented By: RELL Olanzapine (Olanzapine 10 Mg Vial) 5 mg IM ONCE PRN PRN Reason: agitation Last Admin: 01/31/25 00:04 Dose: 5 mg Documented By: MOE Ondansetron HCl (Ondansetron Hcl 4 Mg/2 Ml Vial) 4 mg IVPUSH Q8H PRN PRN Reason: Nausea and Vomiting Polyethylene Glycol (Polyethylene Glycol 3350 17 Gm Powd.Pack) 17 gm PO DAILY PRN PRN Reason: Constipation Senna (Sennosides 8.6 Mg Tablet) 17.2 mg PO BEDTIME [facility] Last Admin: 02/01/25 20:09 Dose: 17.2 mg Documented By: GÉNESIS Sodium Chloride (0.9 % Sodium Chloride Flush 3 Ml Syringe) 3 ml IVFLUSH QSHIFT [facility] Last Admin: 02/02/25 08:06 Dose: 3 ml Documented By: RELL Labs 02/03/25 06:20 02/03/25 06:20 Assessment and Plan (1) Dementia: Status: Acute (2) Seizure disorder: Status: Acute (3) T12 compression fracture: Status: Acute Plan Sepsis 2/2 Acute cholecystitis with choledocholithiasis 89-year-old female with a 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 Unclear etiology of 1 time febrile episode-could be post stroke sequelae versus sepsis secondary to acute cholecystitis with choledocholithiasis. She underwent MRCP choledocholithiasis. She was treated with 5 day course of IV antibiotics, given fluids with no further febrile episodes. Also her LFTs normalized and she likely had passed the stone, with benign abdomen and was able to tolerate p.o. diet without any issues. GI was consulted POA, and the patient was to undergo ERCP on Sunday or Sunday, hence the hold up. However, her LFTs normalized and with a benign abdomen risks versus benefits were being reviewed. GI was consulted and given risks versus benefits, anesthesia and the risk of hypotension delirium and anesthesia related complications, coordinated decision was made with multiple subspecialty and the patient's family and the patient herself (she has been verbalizing she does not want surgery ?opened up ?), that she should defer ERCP if needed to patient. HDS at the time of DC. 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 Neurology consulted, recommendations appreciated Aspirin start 81 mg OD p.o. Pravastatin 80 mg OD p.o. started Passed bedside swallow Speech and language therapy ordered PT and OT ordered ECHO ordered Cardiac telemetry May require apixaban which will be initiated post surgical management-ERCP T12 moderate compression fracture Likely not acute as pt was dancing at wed this past Sunday Pt has known osteoporosis Consider further work up if indicated PT eval ordered No pain issues with back at this time Hypertensive urgency Significantly elevated blood pressure. Multiple medication allergies Starting amlodipine 5 mg We will increase by increments of 5 to adjust blood pressure Generalized weakness May be secondary to neurological event vs bacterial/ viral illness PT/OT evals ordered Fall prevention measures needed Hypothyroidism TSH pending Continue levothyroxine Seizure D/O Continue Kepra Pt denies any recent seizure activity Anxiety PRN Ativan GERD Protonix IV - VTE: Enoxaparin 40 mg - CODE STATUS: Full code - DIET: Clear liquid This note is constructed using voice recognition software. While every effort has been made to ensure accuracy, program evaluation consultant errors may have been included. Patient needs ongoing hospitalization as we need to check if the patient needs ERCP pending MRCP tomorrow a.m. Total time managing care of this patient today: 45 minutes. Quality Stroke Does the patient have a stroke diagnosis?: No Reason for No Anti-thrombotic by Day Two: N/A - Med Ordered VTE Prior VTE?: Yes VTE Risk Level:: Medical - moderate - high VTE Device Contraindication: N/A - Device Ordered VTE Drug Contraindication: N/A - Med Ordered
--- NOTE | 2025-02-02 09:17 | P.CONAN_ITS ---
HPI - Anesthesia Eval Consult details Narrative: *canceled by Dr. 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 H/O seizures: per pt no recent seizures, on Keppra Low potassium: K+ 2.9 on 01/31, repeat labs 3.9 on 02/03/25 [facility] Active Problems Active Problems: All Active Problems Sepsis (Acute) Cerebral infarction (Acute) Fever (Acute) Dysarthria (Acute) T12 compression fracture (Acute) Diverticulosis (Acute) Choledocholithiasis (Acute) Fever (Acute) Hyperkalemia (Acute) Bloating (Acute) GEGE (acute kidney injury) (Acute) Mass of skin of left shoulder (Acute) Shoulder mass (Acute) Dementia (Acute) Hyponatremia (Acute) Medicare annual wellness visit, subsequent (Acute) Hypertension (Acute) Altered mental status (Acute) Speech disorder (Acute) TIA (transient ischemic attack) (Acute) Combined receptive and expressive aphasia (Acute) Abrasion (Acute) Stenosis of cerebral artery (Acute) Involuntary movements (Acute) Chorea (Acute) Cognitive impairment (Acute) Fall (Acute) Acute hyponatremia (Acute) Synovial cyst of popliteal space [Wilburn], left knee (Acute) Dysuria (Acute) Leg cramps (Acute) Adult general medical exam (Acute) Neck pain (Acute) Plantar fasciitis of right foot (Acute) Calcification of both carotid arteries (Acute) Hip pain (Acute) Atopic dermatitis (Acute) Generalized anxiety disorder (Acute) Headache (Acute) Overweight (BMI 25.0-29.9) (Acute) Constipation (Acute) Sciatica of left side (Acute) Urinary incontinence (Acute) Hip osteoarthritis (Acute) Lumbar degenerative disc disease (Acute) Pulmonary nodule (Acute) Cholelithiasis (Acute) Reactive airways dysfunction syndrome (Acute) Chronic cough (Acute) Urinary incontinence (Acute) Eczema (Acute) Hypercholesterolemia (Acute) Hypothyroid (Acute) Seizure disorder (Acute) Anxiety (Acute) Gout (Acute) GERD (gastroesophageal reflux disease) (Acute) Hypertension (Acute) Past Medical History Medical History 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 Facial droop Cerebral infarction Left leg DVT Upper respiratory infection COVID-19 virus infection Burning with urination Buttock pain Status post fall Dog bite of right arm Adult general medical exam Screening for diabetes mellitus Impacted cerumen of both ears Facial lesion Overweight (BMI 25.0-29.9) Hip osteoarthritis T12 vertebral fracture Reactive airways dysfunction syndrome Pneumonia Cholelithiasis CVA (cerebral vascular accident) Obesity (BMI 30-39.9) Hypercholesterolemia Vitamin D deficiency Hypothyroid Seizure disorder Anxiety Gout GERD (gastroesophageal reflux disease) Psoriatic arthritis Hypertension Functional capacity: uses cane/walker Family History Family History Father No problems noted. Mother Acute CVA (cerebrovascular accident) Diabetes Brother Cancer Daughter History of nephrectomy Son Heart disease Surgical History Surgical History History of Mohs surgery for squamous cell carcinoma of skin History of cataract surgery History of colonoscopy History of knee replacement procedure of right knee History of left knee replacement Social History Social History Household Members: Other Household Members Other:: daughter Housing: House Do you presently have visiting nurse or other home services: No Alcohol intake: never Patient Tobacco Use Status: Never used Tobacco Tobacco use type: Cigarette e-Cigarette/Vaping Use: Never Used Second Hand Smoke Exposure: No Advance Directives Date on File: 12/04/23 service: No Current occupational status: retired Cognitive needs: No Hearing needs: Yes (hearing aides) Vision needs: No Meds Allergies Allergy/AdvReac Type Severity Reaction Status Date / Time hydrochlorothiazide Allergy Unknown Electrolyte Verified 01/29/25 17:50 abnormality oxycodone (OXYCODONE) Allergy Unknown VOMITTING,C Verified 01/29/25 17:50 ONFUSION amlodipine AdvReac Intermediate leg Verified 01/29/25 17:50 swelling lisinopril AdvReac Intermediate cough Verified 01/29/25 17:50 losartan AdvReac Intermediate hyponatremi Verified 01/29/25 17:50 a Active Medications: Current Medications Acetaminophen (Acetaminophen 325 Mg Tablet) 650 mg PO Q6H PRN PRN Reason: Pain, Mild 1-3,fever,headache Acetaminophen (Acetaminophen Supp 650 Mg Supp.Rect) 650 mg GA Q6H PRN PRN Reason: Pain, Mild 1-3,fever,headache Albuterol/Ipratropium (Albuterol/Iprat 2.5/0.5mg 3 Ml Ampul.Neb) 3 ml INHALE Q4H PRN PRN Reason: Shortness of Breath/Wheezing Amlodipine Besylate (Amlodipine Besylate 10 Mg Tablet) 10 mg PO DAILY [facility]; Protocol Last Admin: 02/02/25 08:00 Dose: 10 mg Calcium Carbonate (Calcium Carbonate 750 Mg Tab.Chew) 750 mg PO Q4H PRN PRN Reason: Heartburn Enoxaparin Sodium (Enoxaparin Sodium 40 Mg/0.4 Ml Syringe) 40 mg SUBCUT Q24H [facility] Last Admin: 02/01/25 20:10 Dose: 40 mg Guaifenesin (Guaifenesin 200 Mg/10 Ml 10 Ml Liquid) 10 ml PO Q4H PRN PRN Reason: Cough Piperacillin Sod/Tazobactam (Sod 3.375 gm/ Sodium Chloride) 50 mls @ 100 mls/hr IV Q6H [facility] Last Infusion: 02/02/25 05:53 Dose: Infused Levetiracetam (Levetiracetam Oral Soln 500 Mg/5 Ml) 1,000 mg PO BID [facility] Last Admin: 02/02/25 07:56 Dose: 1,000 mg Levothyroxine Sodium (Levothyroxine Sodium 88 Mcg Tablet) 88 mcg PO DAILY@0600 [facility] Last Admin: 02/02/25 06:31 Dose: 88 mcg Lorazepam (Lorazepam 0.5 Mg Tablet) 0.5 mg PO DAILY@1700 [facility] Last Admin: 02/01/25 17:01 Dose: 0.5 mg Magnesium Hydroxide (Milk Of Magnesia 30 Ml Oral.Susp) 30 ml PO DAILY PRN PRN Reason: Constipation Magnesium Oxide (Magnesium Oxide 400 Mg Tablet) 400 mg PO DAILY [facility] Last Admin: 02/02/25 08:01 Dose: 400 mg Melatonin (Melatonin 3 Mg Tablet) 6 mg PO BEDTIME PRN PRN Reason: Insomnia Last Admin: 02/01/25 20:09 Dose: 6 mg Metoprolol Succinate (Metoprolol Succinate Er 50 Mg Tab.Er.24h) 50 mg PO DAILY [facility]; Protocol Last Admin: 02/02/25 07:56 Dose: 50 mg Olanzapine (Olanzapine 10 Mg Vial) 5 mg IM ONCE PRN PRN Reason: agitation Last Admin: 01/31/25 00:04 Dose: 5 mg Ondansetron HCl (Ondansetron Hcl 4 Mg/2 Ml Vial) 4 mg IVPUSH Q8H PRN PRN Reason: Nausea and Vomiting Polyethylene Glycol (Polyethylene Glycol 3350 17 Gm Powd.Pack) 17 gm PO DAILY PRN PRN Reason: Constipation Senna (Sennosides 8.6 Mg Tablet) 17.2 mg PO BEDTIME [facility] Last Admin: 02/01/25 20:09 Dose: 17.2 mg Sodium Chloride (0.9 % Sodium Chloride Flush 3 Ml Syringe) 3 ml IVFLUSH QSHIFT [facility] Last Admin: 02/02/25 08:06 Dose: 3 ml Home Medications ?Medication ?Instructions ?Recorded ?Confirmed ?Last Taken ?Type acetaminophen 500 mg tablet 1,000 mg PO DAILY PRN Pain 12/03/23 01/29/25 Unknown History loratadine 10 mg tablet 10 mg PO DAILY PRN Allergy S ymptoms 01/29/25 01/29/25 Unknown History omeprazole 20 mg capsule,delayed 20 mg PO BID@0630,163 0 01/29/25 01/29/25 01/29/25 History release Exam Height,Weight and Vital Signs: Height 5 ft 2 in Weight 53.6 kg Last Vital Signs Temp 98.2 F 02/02/25 04:00 Pulse 75 02/02/25 04:00 Resp 16 02/02/25 04:00 BP 154/74 H 02/02/25 04:00 Pulse Ox 99 02/02/25 04:00 O2 Del Method Room Air 02/02/25 04:00 Pertinent Lab Results Pertinent Lab Results: Laboratory Tests 01/29/25 01/29/25 01/29/25 17:12 17:13 17:39 WBC 5.9 RBC 3.58 L Hgb 10.7 L Hct 32.8 L MCV 91.6 MCH 29.9 MCHC 32.6 RDW 12.0 Plt Count 99 L D MPV Not Reportable Immature Gran % (Auto) 0.3 Neut % (Auto) 85.9 H Lymph % (Auto) 4.2 L [place] % (Auto) 9.1 Eos % (Auto) 0.3 Baso % (Auto) 0.2 Lymph # (Auto) 0.3 L [place] # (Auto) 0.5 Eos # (Auto) 0.0 Baso # (Auto) 0.0 Abs Immat Gran (auto) 0.02 Absolute Neuts (auto) 5.1 Absolute Nucleated RBC 0.000 Nucleated RBC % (auto) 0.0 Smear Tech's Comments PT 13.3 H Whole Blood PT 13.5 INR 1.2 H Whole Blood INR 1.1 APTT 28.3 VBG pH VBG pCO2 VBG pO2 VBG HCO3 VBG O2 Saturation VBG Base Excess Sodium 132 L Potassium 3.5 Chloride 100 Carbon Dioxide 24 Anion Gap 12 BUN 19 H Creatinine 0.81 Estim Creat Clear Calc 37.9 Estimated GFR > 60 POC Glucose 110 Random Glucose 100 Estimat Average Glucose Hemoglobin A1c % Lactic Acid Lactic Acid F/U @ 2Hr Calcium 8.1 L D Phosphorus 2.6 L Magnesium 2.0 Total Bilirubin 0.6 Direct Bilirubin 0.2 AST 23 ALT 8 Alkaline Phosphatase 55 Troponin I High Sens 12.9 D NT-Pro-B Natriuret Pep 892.1 H Total Protein 5.4 L Albumin 3.0 L Triglycerides 92 Cholesterol 113 LDL Cholesterol, Calc 69 HDL Cholesterol 26 L Lipase 11 TSH 0.30 L Free T4 1.31 Urine Color Urine Appearance Urine pH Ur Specific [place] Urine Protein Urine Glucose (UA) Urine Ketones Urine Blood Urine Nitrite Ur Leukocyte Esterase Urine RBC Urine WBC Ur Squamous Epith Cells Urine Bacteria Hyaline Casts Influenza Type A (PCR) Influenza Type B (PCR) RSV RNA Qual (PCR) SARS-CoV-2 RNA (RT-PCR) 01/29/25 01/29/25 01/29/25 18:01 20:45 20:57 WBC RBC Hgb Hct MCV MCH MCHC RDW Plt Count MPV Immature Gran % (Auto) Neut % (Auto) Lymph % (Auto) [place] % (Auto) Eos % (Auto) Baso % (Auto) Lymph # (Auto) [place] # (Auto) Eos # (Auto) Baso # (Auto) Abs Immat Gran (auto) Absolute Neuts (auto) Absolute Nucleated RBC Nucleated RBC % (auto) Smear Tech's Comments PT Whole Blood PT INR Whole Blood INR APTT VBG pH VBG pCO2 VBG pO2 VBG HCO3 VBG O2 Saturation VBG Base Excess Sodium Potassium Chloride Carbon Dioxide Anion Gap BUN Creatinine Estim Creat Clear Calc Estimated GFR POC Glucose 92 Random Glucose Estimat Average Glucose Hemoglobin A1c % Lactic Acid 2.4 H* Lactic Acid F/U @ 2Hr Calcium Phosphorus Magnesium Total Bilirubin Direct Bilirubin AST ALT Alkaline Phosphatase Troponin I High Sens NT-Pro-B Natriuret Pep Total Protein Albumin Triglycerides Cholesterol LDL Cholesterol, Calc HDL Cholesterol Lipase TSH Free T4 Urine Color Urine Appearance Urine pH Ur Specific [place] Urine Protein Urine Glucose (UA) Urine Ketones Urine Blood Urine Nitrite Ur Leukocyte Esterase Urine RBC Urine WBC Ur Squamous Epith Cells Urine Bacteria Hyaline Casts Influenza Type A (PCR) NEGATIVE Influenza Type B (PCR) NEGATIVE RSV RNA Qual (PCR) NEGATIVE SARS-CoV-2 RNA (RT-PCR) NEGATIVE 01/29/25 01/29/25 01/29/25 21:35 22:23 23:17 WBC RBC Hgb Hct MCV MCH MCHC RDW Plt Count MPV Immature Gran % (Auto) Neut % (Auto) Lymph % (Auto) [place] % (Auto) Eos % (Auto) Baso % (Auto) Lymph # (Auto) [place] # (Auto) Eos # (Auto) Baso # (Auto) Abs Immat Gran (auto) Absolute Neuts (auto) Absolute Nucleated RBC Nucleated RBC % (auto) Smear Tech's Comments PT Whole Blood PT INR Whole Blood INR APTT VBG pH 7.45 H VBG pCO2 32 VBG pO2 54 VBG HCO3 22 VBG O2 Saturation 82.0 VBG Base Excess -0.4 Sodium Potassium Chloride Carbon Dioxide Anion Gap BUN Creatinine Estim Creat Clear Calc Estimated GFR POC Glucose Random Glucose Estimat Average Glucose Hemoglobin A1c % Lactic Acid Lactic Acid F/U @ 2Hr 1.1 Calcium Phosphorus Magnesium Total Bilirubin Direct Bilirubin AST ALT Alkaline Phosphatase Troponin I High Sens NT-Pro-B Natriuret Pep Total Protein Albumin Triglycerides Cholesterol LDL Cholesterol, Calc HDL Cholesterol Lipase TSH Free T4 Urine Color Yellow Urine Appearance Clear Urine pH 6.0 Ur Specific [place] >= 1.030 H Urine Protein 300 (3+) H Urine Glucose (UA) Negative Urine Ketones Trace Urine Blood Moderate (2+) H Urine Nitrite Negative Ur Leukocyte Esterase Trace H Urine RBC 0-2 Urine WBC 11-20 Ur Squamous Epith Cells 0-2 Urine Bacteria None Seen Hyaline Casts 3-5 Influenza Type A (PCR) Influenza Type B (PCR) RSV RNA Qual (PCR) SARS-CoV-2 RNA (RT-PCR) 01/30/25 01/31/25 02:37 10:19 WBC 6.8 4.1 L RBC 3.85 L 3.80 L Hgb 11.7 L 11.5 L Hct 35.2 L 34.6 L MCV 91.4 91.1 MCH 30.4 30.3 MCHC 33.2 33.2 RDW 12.2 12.0 Plt Count 98 L 122 L MPV 10.5 10.5 Immature Gran % (Auto) 0.4 0.5 H Neut % (Auto) 82.3 H 81.9 H Lymph % (Auto) 3.1 L 4.9 L [place] % (Auto) 11.5 H 11.2 H Eos % (Auto) 2.4 1.0 Baso % (Auto) 0.3 0.5 Lymph # (Auto) 0.2 L 0.2 L [place] # (Auto) 0.8 0.5 Eos # (Auto) 0.2 0.0 Baso # (Auto) 0.0 0.0 Abs Immat Gran (auto) 0.03 0.02 Absolute Neuts (auto) 5.6 3.4 Absolute Nucleated RBC 0.000 0.000 Nucleated RBC % (auto) 0.0 0.0 Smear Tech's Comments VERIFIED PT Whole Blood PT INR Whole Blood INR APTT VBG pH VBG pCO2 VBG pO2 VBG HCO3 VBG O2 Saturation VBG Base Excess Sodium 135 138 Potassium 3.2 L 2.9 L* Chloride 104 105 Carbon Dioxide 23 25 Anion Gap 11 L 11 L BUN 18 H 13 Creatinine 0.75 0.65 Estim Creat Clear Calc 41.0 47.3 Estimated GFR > 60 > 60 POC Glucose Random Glucose 95 141 H Estimat Average Glucose 94 Hemoglobin A1c % 4.9 Lactic Acid Lactic Acid F/U @ 2Hr Calcium 8.2 L 8.5 Phosphorus Magnesium Total Bilirubin 0.5 0.5 Direct Bilirubin AST 32 H 39 H ALT 13 12 Alkaline Phosphatase 57 53 Troponin I High Sens NT-Pro-B Natriuret Pep Total Protein 5.5 L 5.8 L Albumin 3.1 L 3.2 L Triglycerides 100 Cholesterol 117 LDL Cholesterol, Calc 73 HDL Cholesterol 24 L Lipase TSH Free T4 Urine Color Urine Appearance Urine pH Ur Specific [place] Urine Protein Urine Glucose (UA) Urine Ketones Urine Blood Urine Nitrite Ur Leukocyte Esterase Urine RBC Urine WBC Ur Squamous Epith Cells Urine Bacteria Hyaline Casts Influenza Type A (PCR) Influenza Type B (PCR) RSV RNA Qual (PCR) SARS-CoV-2 RNA (RT-PCR) Narrative Narrative: ECHO 01/30/25 Conclusions: - The left ventricular systolic function is normal. The calculated ejection fraction is 61% by biplane method. - There is moderate mitral annular calcification. EKG 01/29/25 Vent. Rate : 83 BPM Atrial Rate : 83 BPM P-R Int : 210 ms QRS Dur : 96 ms QT Int : 386 ms P-R-T Axes : 5 -28 2 degrees QTcB Int : 453 ms Sinus rhythm with 1st degree A-V block Moderate voltage criteria for LVH, may be normal variant ( R in aVL , Luis Carlos product ) Nonspecific ST abnormality Abnormal ECG When compared with ECG of 29-Jan-2025 17:36, No significant changes seen CT angio head/neck IMPRESSION: 1. Atherosclerotic vascular disease in the neck appears stable with no hemodynamically significant stenosis. 2. CT angiography head demonstrates focal hemodynamically significant stenosis/occlusion of posterior cerebral arteries bilaterally with reconstitution similar to previous examination. 3. Interval worsening of stenosis involving right M1 segment middle cerebral artery. Otherwise stable findings.
[2025-02-02 09:59] LABS: MANUAL DIFF FLAG NO
[2025-02-02 10:04] LABS: Hematocrit 39.3 % (37.0-47.0); Hemoglobin 12.9 g/dl (12.0-16.0); Imm Gran Abs Auto 0.01 X10*3/uL (0.00-0.03); Imm Gran Pct Auto 0.3 % (0.0-0.4); Lymphocytes Absolute Auto 0.3 X10*3/uL (1.2-4.9); Mean Corpuscular HGB Conc 32.8 g/dl (31.0-35.0); Mean Corpuscular Hemoglobin 29.5 pg (27.0-33.0); Mean Corpuscular Volume 89.7 fL (80.0-98.0); NRBC Abs Auto 0.000 X10*3/uL (0.0-0.012); NRBC Pct Auto 0.0 /100WBC (0.0-0.2); Platelet Count 145 X10*3/uL (160-400); Red Blood Count 4.38 X10*6/uL (4.20-5.50); White Blood Count 3.6 X10*3/uL (4.8-10.8)
[2025-02-02 10:31] LABS: Alanine Aminotransferase 10 U/L (0-31); Albumin Level 3.6 g/dL (3.5-5.0); Alkaline Phosphatase 55 U/L (39-117); Anion Gap 11 (12-20); Aspartate Amino Transferase 20 U/L (5-31); Blood Urea Nitrogen 6 mg/dL (9-16); Calcium 9.1 mg/dL (8.4-10.2); Carbon Dioxide 30 mmol/L (22-29); Chloride 102 mmol/L (96-108); Creatinine Clr Calc Pharmacy 49.6; Estimated Glomerular Filt Rate > 60; Potassium 3.7 mmol/L (3.3-5.1); Sodium 139 mmol/L (135-145); Total Protein 6.5 g/dL (6.5-8.0)
[2025-02-02 12:00] VITALS: BP 120/78; PULSE 88; RESP 18; TEMP 36.4; O2SAT 99
--- NOTE | 2025-02-02 14:48 | PC.NURSE ---
Healthcare Proxy and son, Paul, , says he has not been given explanation of risks vs benefits ERCP. He would like to speak with MD before giving consent. Pt reports that she does not want the procedure.
--- NOTE | 2025-02-02 14:49 | PC.NURSE ---
Pt oriented to self, place, somewhat oriented to situation. She does not seem to have any left sided deficits. Denies pain. Poor appetite. She is very talkative, but speaks slowly. She is forgetful and confused. She burgess not have her hearing aids. She has been up to chair for much of the day. One person assist with walker.
--- NOTE | 2025-02-02 14:49 | MHC.CM.PN ---
Per rounds, pt. to have ERCP tomorrow, neuro to see. Pt told RN that she does not want procedure, RN to request that MD discuss with pt. and HCP, tre. [facility] accepting, updated.
[2025-02-02] MEDS: Aspirin Enteric Coated 81 MG TABLET.DR PO (15:00)
[2025-02-02 16:00] VITALS: BP 138/68; PULSE 79; RESP 18; TEMP 36.2; O2SAT 97
--- NOTE | 2025-02-02 16:13 | PC.NURSE ---
Liquid, brown, incontinent bowel movement. No appreciable odor.
[2025-02-02 19:29] VITALS: BP 160/77; PULSE 90; RESP 16; TEMP 36.7; O2SAT 97
[2025-02-02 23:54] VITALS: BP 141/66; PULSE 81; RESP 16; TEMP 37.3; O2SAT 94
[2025-02-03 03:31] VITALS: BP 132/83; PULSE 73; RESP 16; TEMP 36.8; O2SAT 99
[2025-02-03 07:07] LABS: MANUAL DIFF FLAG NO
[2025-02-03 07:22] LABS: Hematocrit 37.8 % (37.0-47.0); Hemoglobin 12.5 g/dl (12.0-16.0); Imm Gran Abs Auto 0.03 X10*3/uL (0.00-0.03); Imm Gran Pct Auto 0.8 % (0.0-0.4); Lymphocytes Absolute Auto 0.4 X10*3/uL (1.2-4.9); Mean Corpuscular HGB Conc 33.1 g/dl (31.0-35.0); Mean Corpuscular Hemoglobin 29.6 pg (27.0-33.0); Mean Corpuscular Volume 89.6 fL (80.0-98.0); NRBC Abs Auto 0.000 X10*3/uL (0.0-0.012); NRBC Pct Auto 0.0 /100WBC (0.0-0.2); Platelet Count 194 X10*3/uL (160-400); Red Blood Count 4.22 X10*6/uL (4.20-5.50); White Blood Count 4.0 X10*3/uL (4.8-10.8)
[2025-02-03 07:57] LABS: Alanine Aminotransferase 9 U/L (0-31); Albumin Level 3.6 g/dL (3.5-5.0); Alkaline Phosphatase 52 U/L (39-117); Anion Gap 13 (12-20); Aspartate Amino Transferase 18 U/L (5-31); Blood Urea Nitrogen 10 mg/dL (9-16); Calcium 9.0 mg/dL (8.4-10.2); Carbon Dioxide 28 mmol/L (22-29); Chloride 103 mmol/L (96-108); Creatinine Clr Calc Pharmacy 49.6; Estimated Glomerular Filt Rate > 60; Potassium 3.9 mmol/L (3.3-5.1); Sodium 140 mmol/L (135-145); Total Protein 6.4 g/dL (6.5-8.0)
[2025-02-03 08:00] VITALS: BP 175/80; PULSE 81; RESP 20; TEMP 36.7; O2SAT 98
[2025-02-03] MEDS: levETIRAcetam Oral Soln 500 MG/5 ML 1000 MG PO ×2 (08:50→19:24)
[2025-02-03] MEDS: Aspirin Enteric Coated 81 MG TABLET.DR PO (08:50)
[2025-02-03] MEDS: 0.9 % Sodium Chloride Flush 3 ML SYRINGE IVFLUSH ×2 (08:50→19:32)
[2025-02-03] MEDS: Metoprolol Succinate ER 50 MG TAB.ER.24H PO (08:51)
--- NOTE | 2025-02-03 10:37 | HO.HCP ---
Health Care Proxy Invocation Health Care Proxy Declaration: I, __Dr. Link____, on the date cited below, have determined that, __Ankita Dorado___, lacks the capacity to make or communicate, informed health care decision. This determination is made in accordance with accepted standards of medical judgment and pursuant to [place] 201[place], the [place] Health Care Proxy Law. The cause, nature, extent and probable duration of the patient's inapacity are described below: Cause: Cognitive disability Nature: Natural Extent: Mild= Moderate Probable Duration of Patient's Incapacity: Indefinite
--- NOTE | 2025-02-03 10:40 | PM.DS ---
DS: Providers Provider Date of Service: 02/04/25 Date of admission: 01/29/25 19:27 Date of discharge: 02/04/25 Primary care physician: Marie Villanueva MD Consults: 01/29/25 20:42 Consult to Neurology Routine Consulting Provider: [facility] Reason for consultation: rule out CVA Has provider been notified: No 01/30/25 02:53 Consult to Gastroenterology Routine Consulting Provider: Meeta Jhaveri Reason for consultation: choledolithiasis, 9 mm stone, CBD dil 1mm, fever Has provider been notified: No 01/30/25 10:17 Consult to Neurology Stat Consulting Provider: [facility] Reason for consultation: watershed injury isch. 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 Unclear etiology of 1 time febrile episode-could be post stroke sequelae versus sepsis secondary to acute cholecystitis with choledocholithiasis. She underwent MRCP choledocholithiasis. She was treated with 5 day course of IV antibiotics, given fluids with no further febrile episodes. MRCP was repeated given normalization of LFTs and revealed a benign/resolved choledocholithiasis. Patient was hemodynamically stable. GI was consulted POA, and the patient was to undergo ERCP on Sunday or Sunday, hence the hold up. However, her LFTs normalized and with a benign abdomen risks versus benefits were being reviewed. GI was consulted and given risks versus benefits, anesthesia and the risk of hypotension delirium and anesthesia related complications, coordinated decision was made with multiple subspecialty and the patient's family and the patient herself (she has been verbalizing she does not want surgery ?opened up ?), that she should defer ERCP if needed to outpatient settings. To ensure resolution, with GI input, MRCP was repeated and it revealed resolved biliary duct obstruction. She will follow up with GI outpatient settings in 3 weeks or sooner if needed. 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 TTE, TSH, telemetry unremarkable. PTOT evaluated-patient safe for discharge home with VNA. Given high CHADS-VASc score-patient started on Eliquis 5mg po bid T12 moderate compression fracture likely age-related osteoporosis, chronic-PTOT, outpatient management Hypertensive urgency patient was initiated on amlodipine, metoprolol with good effect. Further management will likely be deferred outpatient. Hypothyroidism-continue levothyroxine History of seizures-continue Keppra Anxiety- continue PRN Ativan GERD- continue Protonix IV Healthcare proxy invoked- luh Miller is the healthcare proxy Code status changed to DNR DNI per patient's wishes and the son's wishes who is the healthcare proxy DVT prophylaxis with Eliquis I have spent more than 1 hour today coordinating care with the patient's family, subspecialty and ensuring a safe discharge home. This note is constructed using voice recognition software. While every effort has been made to ensure accuracy, inspector balance wheel motion errors may have been included. Total time managing care of this patient today: 45 minutes. Time spent discussing smoking cessation with patient: more than 10 minutes Status at Discharge Functional status at discharge: uses cane/walker Overall status at discharge: patient is progressing back to baseline Time Attestation Discharge Coordination Time (in mins): 45 Quality: Safe Use of Opioids Does Pt have an Active Cancer Diagnosis on the Problem List?: No Quality: Stroke Does the patient have a stroke diagnosis?: Yes Reason for No Anti-thrombotic at DC: N/A - Med Ordered Reason for No Anticoagulant at DC: N/A - Med Ordered Reason Not Initiating IV-Tpa: Not indicated Reason for No Anti-thrombotic by Day Two: Not indicated Reason for No Statin at DC: N/A - Med Ordered Physical Exam Vital Signs: Vital Signs: Last Vital Signs Temp 98.0 F 02/03/25 08:00 Pulse 81 02/03/25 08:00 Resp 20 02/03/25 08:00 BP 175/80 H 02/03/25 08:00 Pulse Ox 98 02/03/25 08:00 O2 Del Method Room Air 02/03/25 08:00 BMI result Body Mass Index 21.6 DS: Data Data Completed and Pending Labs on day of discharge: Laboratory Results - last 24 hr 02/03/25 06:20 WBC 4.0 L RBC 4.22 Hgb 12.5 Hct 37.8 MCV 89.6 MCH 29.6 MCHC 33.1 RDW 12.0 Plt Count 194 D MPV 10.3 Immature Gran % (Auto) 0.8 H Neut % (Auto) 74.6 H Lymph % (Auto) 10.3 L [place] % (Auto) 11.3 H Eos % (Auto) 2.5 Baso % (Auto) 0.5 Lymph # (Auto) 0.4 L [place] # (Auto) 0.5 Eos # (Auto) 0.1 Baso # (Auto) 0.0 Abs Immat Gran (auto) 0.03 Absolute Neuts (auto) 3.0 Absolute Nucleated RBC 0.000 Nucleated RBC % (auto) 0.0 Sodium 140 Potassium 3.9 Chloride 103 Carbon Dioxide 28 Anion Gap 13 BUN 10 Creatinine 0.62 Estim Creat Clear Calc 49.6 Estimated GFR > 60 Random Glucose 107 Calcium 9.0 Total Bilirubin 0.6 AST 18 ALT 9 Alkaline Phosphatase 52 Total Protein 6.4 L Albumin 3.6 Preliminary micro results at discharge 01/29/25 21:30 Blood Culture - Preliminary Blood - Venous No growth after 48 hours. 01/29/25 20:57 Blood Culture - Preliminary Blood - Venous No growth after 48 hours. Discharge Plan Discharge Anticipated Discharge Date/Time: 02/04/25 12:11 Patient Disposition: Home Health Service Discharge Diagnosis: Sepsis 2/2 Acute cholecystitis with choledocholithiasis- resolved Referrals: Po,Marie Renner MD [Primary Care Provider, Internal Medicine] - 1 Week Discharge Medications: New Eliquis 5 mg Tablet 5 mg PO BID 30 Days Qty: 60 3RF amlodipine 10 mg Tablet 10 mg PO DAILY 30 Days Qty: 30 3RF Protocol: Hold for SBP< HOLD for SBP < : 90 pravastatin 40 mg Tablet 40 mg PO DAILY 30 Days Qty: 30 3RF Continued (DME) low height rollator See Rx Instructions .Route .MEDSUPPLY Qty: 1 0RF Rx Instructions: As directed magnesium oxide 400 mg magnesium capsule 400 mg PO DAILY Qty: 90 1RF levothyroxine 88 mcg tablet 88 mcg PO DAILY@0600 90 Days Qty: 90 1RF levetiracetam 1,000 mg tablet 1,000 mg PO BID Qty: 180 0RF lorazepam 1 mg tablet 0.5 mg PO DAILY@1700 Qty: 45 0RF omeprazole 20 mg capsule,delayed release(DR/EC) 20 mg PO BID@0630,1630 loratadine 10 mg tablet 10 mg PO DAILY PRN (Reason: Allergy Symptoms) aspirin 81 mg Tablet,Delayed Release (Dr/Ec) 81 mg PO DAILY Qty: 30 0RF acetaminophen 500 mg Tablet 1,000 mg PO DAILY PRN (Reason: Pain) metoprolol succinate 50 mg tablet extended release 24 hr 50 mg PO DAILY Qty: 90 3RF Discharge Orders: Discharge Order (Routine); Ordered 02/04/25 Ordered By: Lindy Link Diet: Low salt diet Activity on Discharge: As tolerated Stand Alone Forms: Patient Portal Discharge page Print Language: [place]i Care Plan Goals: Follow-up with PCP/Neurology within a post discharge Follow up with GI outpatient for follow-up cholelithiasis to see if she requires ERCP or not Please continue to take aspirin, statin, Eliquis which has been initiated during this admission. It is very important you do not receive medications to prevent any further strokes He were noted to have osteoporosis-follow up with the PCP You were also noted to have high blood pressure we have started you on amlodipine-we will request due to follow up with your PCP for further initiation of meds based on hemodynamics status. Follow with VNA, PTOT Health Concerns: See above Plan of Treatment: See above Assessment: See above
--- NOTE | 2025-02-03 10:46 | P.ACPN_ITS ---
Advanced Care Planning Note Advanced Care Planning Note Discussed with: family member(s) (Paul - [phone]) Time spent (in minutes): 55 Narrative: Spoke to the patient's son Paul on 02/03/2025 ([phone]) and given her gradual but significant decline in cognitive abilities. Paul decided that she never wanted aggressive resuscitation measures and she would like to be DNR DNI. Explained to him that a DNR/DNI essentially means that the patient would get all the treatment except in the unlikely event that despite all aggressive medical management she were to have a cardiac arrest or respiratory arrest, we would not be performing CPR or intubating her. Paul stated that this is in line with what she always wanted. She also did not want any aggressive surgeries/life prolonging measures. She has also stated to multiple physicians including GI physician that she did not want open surgeries. I have invoked healthcare proxy as of 02/03/2025 as the patient is unable to vocalize/verbalize her medical conditions. Although she is A&O x3, she likely has cognitive impairment. Son Paul is in agreement and has noticed the same when he visited her at bedside. She would likely need an official diagnosis outpatient with her primary care. My witnesses were my colleagues in the hospitalist room - , FRANCIS eRed and BC Garcia. Given this, I am changing her code status to DNR DNI based on my clinical judgment. Please do not hesitate to call for any further clarification. This note is constructed using voice recognition software. While every effort has been made to ensure accuracy, smelting engineer errors may have been included. Problems Discussed (1) Dementia: (2) Seizure disorder: (3) T12 compression fracture:
--- NOTE | 2025-02-03 11:09 | W.MHC.F2F ---
Service Date Service Date: 02/03/25 Encounter Date of encounter: 02/03/25 Reasons for Services Signs and symptoms assessed: PT/OT notes Reason for correction: medication management Reason for physical therapy: home safety and mobility, therapeutic exercises, gait/transfer training and ADL training Reason for occupational therapy: home safety and mobility, therapeutic exercises, gait/transfer training and ADL training Reason for speech therapy: speech impairment and cognitive impairment Homebound: Leaving the home is medically contraindicated at this time without the asist of a device and/or another person due th the listed conditions above and below. Reason homebound: unsteady gait / fall risk, poor balance / fall risk, psychologically impaired / unsafe and cognitively impaired / unsafe Certification: Based on the above findings, I certify that this patient is confined to the home and needs intermittent correction care, physical therapy and/or speech therapy, or continues to need occupational therapy. The patient is under my care, and I have initiated the establishment of the plan of care. The patient will be followed by a physician who will periodically review the plan of care. Time Spent With Patient Time: Total time managing care of this patient today ____ minutes.
[2025-02-03 11:44] VITALS: BP 137/69; PULSE 88; RESP 18; TEMP 36.3; O2SAT 97
--- NOTE | 2025-02-03 14:53 | PM.GIPN ---
Subjective Subjective Date of Service: 02/03/25 Interval History: denies abdominal pain no n/v feels hungry LFT nml Critical Care Time (minutes): 0 Physical Exam Exam: Exam: EXAM: GENERAL: The patient is relaxed, poor dentition VITAL SIGNS:see workflow HEENT: Nonicteric sclerae, PERRLA, EOMI. Oropharynx clear. Moist mucous membranes. Conjunctivae appear well perfused. No thyroid mass. CHEST: Chest wall is nontender. HEART: Regular rate and rhythm without murmurs. LUNGS: Clear to auscultation bilaterally. ABDOMEN: Soft, positive bowel sounds, nontender, no organomegaly.no flank tenderness SKIN: No rash, no excessive bruising, petechiae, or purpura. NEUROLOGIC: Cranial nerves II-XII intact without motor/sensory deficit. Psych: AAO x 3--but seems to lack insight Vital Signs: Vital Signs: Last Vital Signs Temp 97.3 F 02/03/25 11:44 Pulse 88 02/03/25 11:44 Resp 18 02/03/25 11:44 BP 137/69 02/03/25 11:44 Pulse Ox 97 02/03/25 11:44 O2 Del Method Room Air 02/03/25 11:44 BMI result Body Mass Index 21.6 Objective Data Labs 02/03/25 06:20 02/03/25 06:20 Labs: Laboratory Results - last 24 hr 02/03/25 06:20 WBC 4.0 L RBC 4.22 Hgb 12.5 Hct 37.8 MCV 89.6 MCH 29.6 MCHC 33.1 RDW 12.0 Plt Count 194 D MPV 10.3 Immature Gran % (Auto) 0.8 H Neut % (Auto) 74.6 H Lymph % (Auto) 10.3 L [place] % (Auto) 11.3 H Eos % (Auto) 2.5 Baso % (Auto) 0.5 Lymph # (Auto) 0.4 L [place] # (Auto) 0.5 Eos # (Auto) 0.1 Baso # (Auto) 0.0 Abs Immat Gran (auto) 0.03 Absolute Neuts (auto) 3.0 Absolute Nucleated RBC 0.000 Nucleated RBC % (auto) 0.0 Sodium 140 Potassium 3.9 Chloride 103 Carbon Dioxide 28 Anion Gap 13 BUN 10 Creatinine 0.62 Estim Creat Clear Calc 49.6 Estimated GFR > 60 Random Glucose 107 Calcium 9.0 Total Bilirubin 0.6 AST 18 ALT 9 Alkaline Phosphatase 52 Total Protein 6.4 L Albumin 3.6 Microbiology Microbiology Results: Microbiology 01/29/25 21:30 Blood - Venous Blood Culture - Preliminary No growth after 48 hours. 01/29/25 20:57 Blood - Venous Blood Culture - Preliminary No growth after 48 hours. Procedures Date of Service Date of Service: 02/03/25 Progress Note: A&P Assessment and plan (1) Choledocholithiasis: Status: Acute Plan 1/ Choledocholithiasis, without any pain, and nml LFT. Benign abdominal exam. She may have passed stone or it is not obstructing at this time. PLAN: 1/ repeat MRCP--if neg then no need for ERCP, if pos then can plan for o/p ERCP in 3-4 weeks which will also allow time for recovery from her acute stroke-spoke with hospitalist and son, in agreement, 2/ ok for anticoagulation at this time Time Spent With Patient Time: Total time managing care of this patient today ____ minutes. Quality Stroke Does the patient have a stroke diagnosis?: No Reason for No Anti-thrombotic by Day Two: N/A - Med Ordered VTE Prior VTE?: Yes VTE Risk Level:: Medical - moderate - high VTE Device Contraindication: N/A - Device Ordered VTE Drug Contraindication: N/A - Med Ordered
[2025-02-03 15:57] VITALS: BP 144/64; PULSE 78; RESP 18; TEMP 36.4; O2SAT 98
--- NOTE | 2025-02-03 17:58 | P.PNIM_ITS ---
Subjective Subjective Date of Service: 02/03/25 Interval History: Patient underwent repeat MRCP which is suggestive of the obstruction likely having been relieved Spoke to the son Paul at length and he is agreeable that she would like to defer procedure Healthcare proxy invoked Advanced care planning-DNR DNI-witnesses were hospital staff as documented Given her high CHADS-VASc score, and no ERCP, and recent stroke, likely embolic in nature we will initiate Eliquis Review of Systems Review of Systems: Yes all other systems are reviewed and are negative Physical Exam 2 Exam: Exam: General: AOx3, no acute distress, however, appears to be cognitively impaired, unable to verbalize her clinical acuity Slurring of speech-likely residual effects of the stroke Poor dentition-partially edentulous Resp: CTA bilaterally CVS: S1, S2, RRR GI: +BS, NT, no distention Vital Signs: Vital Signs: Last Vital Signs Temp 97.6 F 02/03/25 15:57 Pulse 78 02/03/25 15:57 Resp 18 02/03/25 15:57 BP 144/64 H 02/03/25 15:57 Pulse Ox 98 02/03/25 15:57 O2 Del Method Room Air 02/03/25 15:57 BMI result Body Mass Index 21.6 Objective Data Active Medications Acetaminophen (Acetaminophen 325 Mg Tablet) 650 mg PO Q6H PRN PRN Reason: Pain, Mild 1-3,fever,headache Acetaminophen (Acetaminophen Supp 650 Mg Supp.Rect) 650 mg CO Q6H PRN PRN Reason: Pain, Mild 1-3,fever,headache Albuterol/Ipratropium (Albuterol/Iprat 2.5/0.5mg 3 Ml Ampul.Neb) 3 ml INHALE Q4H PRN PRN Reason: Shortness of Breath/Wheezing Amlodipine Besylate (Amlodipine Besylate 10 Mg Tablet) 10 mg PO DAILY [facility]; Protocol Last Admin: 02/03/25 08:51 Dose: 10 mg Documented By: JUANIS Aspirin (Aspirin Enteric Coated 81 Mg Tablet.) 81 mg PO DAILY [facility] Last Admin: 02/03/25 08:50 Dose: 81 mg Documented By: JUANIS Calcium Carbonate (Calcium Carbonate 750 Mg Tab.Chew) 750 mg PO Q4H PRN PRN Reason: Heartburn Enoxaparin Sodium (Enoxaparin Sodium 40 Mg/0.4 Ml Syringe) 40 mg SUBCUT Q24H [facility] Last Admin: 02/02/25 20:12 Dose: 40 mg Documented By: GÉNESIS Guaifenesin (Guaifenesin 200 Mg/10 Ml 10 Ml Liquid) 10 ml PO Q4H PRN PRN Reason: Cough Levetiracetam (Levetiracetam Oral Soln 500 Mg/5 Ml) 1,000 mg PO BID [facility] Last Admin: 02/03/25 08:50 Dose: 1,000 mg Documented By: JUANIS Levothyroxine Sodium (Levothyroxine Sodium 88 Mcg Tablet) 88 mcg PO DAILY@0600 [facility] Last Admin: 02/03/25 05:39 Dose: 88 mcg Documented By: GÉNESIS Lorazepam (Lorazepam 0.5 Mg Tablet) 0.5 mg PO DAILY@1700 [facility] Last Admin: 02/03/25 16:52 Dose: 0.5 mg Documented By: JUANIS Magnesium Hydroxide (Milk Of Magnesia 30 Ml Oral.Susp) 30 ml PO DAILY PRN PRN Reason: Constipation Magnesium Oxide (Magnesium Oxide 400 Mg Tablet) 400 mg PO DAILY [facility] Last Admin: 02/03/25 08:51 Dose: 400 mg Documented By: JUANIS Melatonin (Melatonin 3 Mg Tablet) 6 mg PO BEDTIME PRN PRN Reason: Insomnia Last Admin: 02/02/25 20:12 Dose: 6 mg Documented By: GÉNESIS Metoprolol Succinate (Metoprolol Succinate Er 50 Mg Tab.Er.24h) 50 mg PO DAILY [facility]; Protocol Last Admin: 02/03/25 08:51 Dose: 50 mg Documented By: JUANIS Olanzapine (Olanzapine 10 Mg Vial) 5 mg IM ONCE PRN PRN Reason: agitation Last Admin: 01/31/25 00:04 Dose: 5 mg Documented By: MOE Ondansetron HCl (Ondansetron Hcl 4 Mg/2 Ml Vial) 4 mg IVPUSH Q8H PRN PRN Reason: Nausea and Vomiting Polyethylene Glycol (Polyethylene Glycol 3350 17 Gm Powd.Pack) 17 gm PO DAILY PRN PRN Reason: Constipation Pravastatin Sodium (Pravastatin Sodium 20 Mg Tablet) 20 mg PO DAILY [facility] Last Admin: 02/03/25 14:50 Dose: 20 mg Documented By: JUANIS Senna (Sennosides 8.6 Mg Tablet) 17.2 mg PO BEDTIME [facility] Last Admin: 02/02/25 20:10 Dose: Not Given Documented By: GÉNESIS Non-Admin Reason: loose BMs today Sodium Chloride (0.9 % Sodium Chloride Flush 3 Ml Syringe) 3 ml IVFLUSH QSHIFT [facility] Last Admin: 02/03/25 15:36 Dose: Not Given Documented By: JUANIS Non-Admin Reason: Previously Administered Labs 02/03/25 06:20 02/03/25 06:20 Labs: Laboratory Results - last 24 hr 02/03/25 06:20 MCV 89.6 MCH 29.6 MCHC 33.1 RDW 12.0 Plt Count 194 D MPV 10.3 Immature Gran % (Auto) 0.8 H Neut % (Auto) 74.6 H Lymph % (Auto) 10.3 L [place] % (Auto) 11.3 H Eos % (Auto) 2.5 Baso % (Auto) 0.5 Lymph # (Auto) 0.4 L [place] # (Auto) 0.5 Eos # (Auto) 0.1 Baso # (Auto) 0.0 Abs Immat Gran (auto) 0.03 Absolute Neuts (auto) 3.0 Absolute Nucleated RBC 0.000 Nucleated RBC % (auto) 0.0 Anion Gap 13 Estim Creat Clear Calc 49.6 Estimated GFR > 60 Random Glucose 107 Calcium 9.0 Total Bilirubin 0.6 AST 18 ALT 9 Alkaline Phosphatase 52 Total Protein 6.4 L Albumin 3.6 Assessment and Plan (1) Dementia: Status: Acute (2) Seizure disorder: Status: Acute (3) T12 compression fracture: Status: Acute Plan Sepsis 2/2 Acute cholecystitis with choledocholithiasis- resolved 89-year-old female with a 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 Unclear etiology of 1 time febrile episode-could be post stroke sequelae versus sepsis secondary to acute cholecystitis with choledocholithiasis. She underwent MRCP choledocholithiasis. She was treated with 5 day course of IV antibiotics, given fluids with no further febrile episodes. MRCP was repeated given normalization of LFTs and revealed a benign/resolved choledocholithiasis. Patient was hemodynamically stable. GI was consulted POA, and the patient was to undergo ERCP on Sunday or Sunday, hence the hold up. However, her LFTs normalized and with a benign abdomen risks versus benefits were being reviewed. GI was consulted and given risks versus benefits, anesthesia and the risk of hypotension delirium and anesthesia related complications, coordinated decision was made with multiple subspecialty and the patient's family and the patient herself (she has been verbalizing she does not want surgery ?opened up ?), that she should defer ERCP if needed to outpatient settings. To ensure resolution, with GI input, MRCP was repeated and it revealed resolved biliary duct obstruction. She will follow up with GI outpatient settings in 3 weeks or sooner if needed. 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 TTE, TSH, telemetry unremarkable. PTOT evaluated-patient safe for discharge home with VNA. Given high CHADS-VASc score-patient started on Eliquis T12 moderate compression fracture likely age-related osteoporosis, chronic-PTOT, outpatient management Hypertensive urgency patient was initiated on amlodipine, metoprolol with good effect. Further management will likely be deferred outpatient. Hypothyroidism-continue levothyroxine History of seizures-continue Keppra Anxiety- continue PRN Ativan GERD- continue Protonix IV Healthcare proxy invoked- corby Miller is the healthcare proxy Code status changed to DNR DNI per patient's wishes and the son's wishes who is the healthcare proxy DVT prophylaxis with Eliquis-discontinued Lovenox Disposition: Patient being optimized medically, patient's son stated he is ready to take the patient home and has everything set up as he had to take care of his mother. Patient likely to be discharged tomorrow. I have spent more than 1 hour today coordinating care with the patient's family, subspecialty and ensuring a safe discharge home. This note is constructed using voice recognition software. While every effort has been made to ensure accuracy, public safety police errors may have been included. Total time managing care of this patient today: 45 minutes. Quality Stroke Does the patient have a stroke diagnosis?: No Reason for No Anti-thrombotic by Day Two: N/A - Med Ordered VTE Prior VTE?: Yes VTE Risk Level:: Medical - moderate - high VTE Device Contraindication: N/A - Device Ordered VTE Drug Contraindication: N/A - Med Ordered
[2025-02-03 19:47] VITALS: BP 143/75; PULSE 95; RESP 18; O2SAT 98
[2025-02-03 23:48] VITALS: BP 135/84; PULSE 91; RESP 18; TEMP 36.6; O2SAT 93
[2025-02-04 03:19] VITALS: BP 142/92; PULSE 79; RESP 18; TEMP 36.6; O2SAT 93
--- NOTE | 2025-02-04 07:22 | HO.PM.IMPN ---
Subjective Subjective Date of Service: 02/04/25 Physical Exam Vital Signs: Vital Signs: Last Vital Signs Temp 97.9 F 02/04/25 03:19 Pulse 79 02/04/25 03:19 Resp 18 02/04/25 03:19 BP 142/92 H 02/04/25 03:19 Pulse Ox 93 02/04/25 03:19 O2 Del Method Room Air 02/04/25 03:19 BMI result Body Mass Index 21.6 Objective Data Active Medications Acetaminophen (Acetaminophen 325 Mg Tablet) 650 mg PO Q6H PRN PRN Reason: Pain, Mild 1-3,fever,headache Last Admin: 02/04/25 05:02 Dose: 650 mg Documented By: BUZZ Acetaminophen (Acetaminophen Supp 650 Mg Supp.Rect) 650 mg NM Q6H PRN PRN Reason: Pain, Mild 1-3,fever,headache Albuterol/Ipratropium (Albuterol/Iprat 2.5/0.5mg 3 Ml Ampul.Neb) 3 ml INHALE Q4H PRN PRN Reason: Shortness of Breath/Wheezing Amlodipine Besylate (Amlodipine Besylate 10 Mg Tablet) 10 mg PO DAILY [facility]; Protocol Last Admin: 02/03/25 08:51 Dose: 10 mg Documented By: JUANIS Apixaban (Apixaban 5 Mg Tablet) 5 mg PO BID [facility] Last Admin: 02/03/25 19:45 Dose: 5 mg Documented By: BUZZ Aspirin (Aspirin Enteric Coated 81 Mg Tablet.Dr) 81 mg PO DAILY [facility] Last Admin: 02/03/25 08:50 Dose: 81 mg Documented By: JUANIS Calcium Carbonate (Calcium Carbonate 750 Mg Tab.Chew) 750 mg PO Q4H PRN PRN Reason: Heartburn Guaifenesin (Guaifenesin 200 Mg/10 Ml 10 Ml Liquid) 10 ml PO Q4H PRN PRN Reason: Cough Levetiracetam (Levetiracetam Oral Soln 500 Mg/5 Ml) 1,000 mg PO BID [facility] Last Admin: 02/03/25 19:24 Dose: 1,000 mg Documented By: BUZZ Levothyroxine Sodium (Levothyroxine Sodium 88 Mcg Tablet) 88 mcg PO DAILY@0600 [facility] Last Admin: 02/04/25 04:43 Dose: 88 mcg Documented By: BUZZ Lorazepam (Lorazepam 0.5 Mg Tablet) 0.5 mg PO DAILY@1700 [facility] Last Admin: 02/03/25 16:52 Dose: 0.5 mg Documented By: JUANIS Magnesium Hydroxide (Milk Of Magnesia 30 Ml Oral.Susp) 30 ml PO DAILY PRN PRN Reason: Constipation Magnesium Oxide (Magnesium Oxide 400 Mg Tablet) 400 mg PO DAILY [facility] Last Admin: 02/03/25 08:51 Dose: 400 mg Documented By: JUANIS Melatonin (Melatonin 3 Mg Tablet) 6 mg PO BEDTIME PRN PRN Reason: Insomnia Last Admin: 02/03/25 19:25 Dose: 6 mg Documented By: BUZZ Metoprolol Succinate (Metoprolol Succinate Er 50 Mg Tab.Er.24h) 50 mg PO DAILY [facility]; Protocol Last Admin: 02/03/25 08:51 Dose: 50 mg Documented By: JUANIS Olanzapine (Olanzapine 10 Mg Vial) 5 mg IM ONCE PRN PRN Reason: agitation Last Admin: 01/31/25 00:04 Dose: 5 mg Documented By: MOE Ondansetron HCl (Ondansetron Hcl 4 Mg/2 Ml Vial) 4 mg IVPUSH Q8H PRN PRN Reason: Nausea and Vomiting Polyethylene Glycol (Polyethylene Glycol 3350 17 Gm Powd.Pack) 17 gm PO DAILY PRN PRN Reason: Constipation Pravastatin Sodium (Pravastatin Sodium 40 Mg Tablet) 40 mg PO DAILY [facility] Senna (Sennosides 8.6 Mg Tablet) 17.2 mg PO BEDTIME [facility] Last Admin: 02/03/25 19:50 Dose: Not Given Documented By: BUZZ Non-Admin Reason: Patient Refused Sodium Chloride (0.9 % Sodium Chloride Flush 3 Ml Syringe) 3 ml IVFLUSH QSHIFT [facility] Last Admin: 02/03/25 19:32 Dose: 3 ml Documented By: BUZZ Labs 02/03/25 06:20 02/03/25 06:20 Labs: Laboratory Results - last 24 hr 02/03/25 06:20 MCV 89.6 MCH 29.6 MCHC 33.1 RDW 12.0 Plt Count 194 D MPV 10.3 Immature Gran % (Auto) 0.8 H Neut % (Auto) 74.6 H Lymph % (Auto) 10.3 L [place] % (Auto) 11.3 H Eos % (Auto) 2.5 Baso % (Auto) 0.5 Lymph # (Auto) 0.4 L [place] # (Auto) 0.5 Eos # (Auto) 0.1 Baso # (Auto) 0.0 Abs Immat Gran (auto) 0.03 Absolute Neuts (auto) 3.0 Absolute Nucleated RBC 0.000 Nucleated RBC % (auto) 0.0 Anion Gap 13 Estim Creat Clear Calc 49.6 Estimated GFR > 60 Random Glucose 107 Calcium 9.0 Total Bilirubin 0.6 AST 18 ALT 9 Alkaline Phosphatase 52 Total Protein 6.4 L Albumin 3.6 Microbiology Microbiology Results: Microbiology 01/29/25 21:30 Blood Culture - Final Blood - Venous No growth after 5 days. 01/29/25 20:57 Blood Culture - Final Blood - Venous No growth after 5 days. Quality Stroke Does the patient have a stroke diagnosis?: No Reason for No Anti-thrombotic by Day Two: N/A - Med Ordered VTE Prior VTE?: Yes VTE Risk Level:: Medical - moderate - high VTE Device Contraindication: N/A - Device Ordered VTE Drug Contraindication: N/A - Med Ordered
[2025-02-04 07:58] VITALS: BP 145/68; PULSE 84; RESP 18; TEMP 36.5; O2SAT 97
[2025-02-04] MEDS: levETIRAcetam Oral Soln 500 MG/5 ML 1000 MG PO (08:17)
[2025-02-04] MEDS: Metoprolol Succinate ER 50 MG TAB.ER.24H PO (08:18)
[2025-02-04] MEDS: Aspirin Enteric Coated 81 MG TABLET.DR PO (08:18)
[2025-02-04] MEDS: 0.9 % Sodium Chloride Flush 3 ML SYRINGE IVFLUSH (10:31)
[2025-02-04 12:00] VITALS: BP 123/65; PULSE 79; RESP 18; TEMP 36.9; O2SAT 97
--- NOTE | 2025-02-04 12:00 | MHC.CM.PN ---
SECOND IMM GIVEN 02/04. PATIENT IS MEDICALLY CLEARED FOR DISCHARGE HOME WITH [facility], PATIENTS [facility] WILL TRANSPORT HER HOME TODAY.
--- NOTE | 2025-02-04 15:13 | P.PNGI_ITS ---
Subjective Subjective Date of Service: 02/04/25 Interval History: tolerating PO, no abdominal pain, no headaches no nausea Critical Care Time (minutes): 0 Physical Exam 2 Exam: Exam: EXAM: GENERAL: The patient is frail VITAL SIGNS:see workflow HEENT: Nonicteric sclerae, PERRLA, EOMI. Oropharynx clear. Moist mucous membranes. Conjunctivae appear well perfused. No thyroid mass. CHEST: Chest wall is nontender. HEART: Regular rate and rhythm without murmurs. LUNGS: Clear to auscultation bilaterally. ABDOMEN: Soft, positive bowel sounds, nontender, no organomegaly.no flank tenderness SKIN: No rash, no excessive bruising, petechiae, or purpura. NEUROLOGIC: Cranial nerves II-XII intact without motor/sensory deficit. Psych: normal affect but poor insight Vital Signs: Vital Signs: Last Vital Signs Temp 98.4 F 02/04/25 12:00 Pulse 79 02/04/25 12:00 Resp 18 02/04/25 12:00 BP 123/65 02/04/25 12:00 Pulse Ox 97 02/04/25 12:00 O2 Del Method Room Air 02/04/25 12:00 BMI result Body Mass Index 21.6 Objective Data Labs 02/03/25 06:20 02/03/25 06:20 Microbiology Microbiology Results: Microbiology 01/29/25 21:30 Blood - Venous Blood Culture - Final No growth after 5 days. 01/29/25 20:57 Blood - Venous Blood Culture - Final No growth after 5 days. Procedures Date of Service Date of Service: 02/04/25 Progress Note: A&P Assessment and plan (1) Choledocholithiasis: Status: Acute Plan 1/ Choledocholithiasis - normal LFT, and no symptoms PLAN: 1/ Re discuss with son about o/p ERCP in 2-3 weeks vs IR consult for spyglass Time Spent With Patient Time: Total time managing care of this patient today ____ minutes. Quality Stroke Does the patient have a stroke diagnosis?: Yes Reason for No Anti-thrombotic by Day Two: Not indicated VTE Prior VTE?: Yes VTE Risk Level:: Medical - moderate - high VTE Device Contraindication: N/A - Device Ordered VTE Drug Contraindication: N/A - Med Ordered
[2025-02-04 16:00] VITALS: BP 134/71; PULSE 83; RESP 18; TEMP 36.7; O2SAT 94
== END 2025-02-04 16:17 | disposition home health service (06) | DRG 871 ==
LOC: HO.ED 17:36 → HO.EDOVER 19:27 → HO.IMC 01-30 16:40
PROVIDERS: Hospitalist; Nurse Practitioner Family; Admitting Provider Internal Medicine; Emergency Provider Emergency Medicine; PCP Internal Medicine; Visit Provider Student in an Organized Health Care Education/Training Program
DX: A41.9 Sepsis, unspecified organism (principal); I63.40 Cerebral infarction due to embolism of unspecified cerebral artery; M80.08XA Age-related osteoporosis with current pathological fracture, vertebra(e), initial encounter for fracture; K80.00 Calculus of gallbladder with acute cholecystitis without obstruction; R47.81 Slurred speech; I16.0 Hypertensive urgency; R29.706 NIHSS score 6; E03.9 Hypothyroidism, unspecified; Z66 Do not resuscitate; F41.9 Anxiety disorder, unspecified; L40.50 Arthropathic psoriasis, unspecified; G40.909 Epilepsy, unspecified, not intractable, without status epilepticus; I10 Essential (primary) hypertension; Z85.828 Personal history of other malignant neoplasm of skin; K21.9 Gastro-esophageal reflux disease without esophagitis; Z23 Encounter for immunization; Z20.822 Contact with and (suspected) exposure to COVID-19; Z79.82 Long term (current) use of aspirin; Z79.890 Hormone replacement therapy; Z79.899 Other long term (current) drug therapy
CPT/HCPCS: 36415; 70450; 70496; 70498; 70551; 71046; 71250; 74176; 74181; 80048; 80053; 80061; 80076; 81001; 82803; 82947; 83036; 83605; 83690; 83735; 83880; 84100; 84439; 84443; 84484; 85025; 85610; 85730; 87040; 87637; 90656; 93005; 93306; 97110; 97116; 97162; 97166; 97530; 97535; 99285; J0696; J1650; J1885; J2359; J2470; J2543; J3480; Q9957; Q9967

== ENCOUNTER → 2025-01-29 17:13 | Outpatient (BNV) | payer MEDICARE, SELFPAY | PROVIDERS: Admitting Provider Internal Medicine; Emergency Provider Emergency Medicine; PCP Internal Medicine; Visit Provider Internal Medicine | DX: I44.0 Atrioventricular block, first degree (principal); R94.31 Abnormal electrocardiogram [ECG] [EKG]; I63.9 Cerebral infarction, unspecified | CPT/HCPCS: 93010 ==

== ENCOUNTER → 2025-01-29 17:13 | Outpatient (BNV) | payer MEDICARE, SELFPAY | PROVIDERS: Admitting Provider Internal Medicine; Emergency Provider Emergency Medicine; PCP Internal Medicine; Visit Provider Specialist | DX: R47.81 Slurred speech (principal); I66.01 Occlusion and stenosis of right middle cerebral artery; R05.9 Cough, unspecified | CPT/HCPCS: 70450; 70496; 70498; 71046 ==

== ENCOUNTER 2025-01-29 19:27 | Outpatient (BNV) | payer MEDICARE, SELFPAY | END 2025-01-30 07:00 | PROVIDERS: Admitting Provider Internal Medicine; Emergency Provider Emergency Medicine; PCP Internal Medicine; Visit Provider Internal Medicine | DX: I34.81 Nonrheumatic mitral (valve) annulus calcification (principal) | CPT/HCPCS: 93306 ==

== ENCOUNTER 2025-01-29 19:27 | Outpatient (BNV) | payer MEDICARE, SELFPAY | END 2025-02-03 15:08 | PROVIDERS: Admitting Provider Internal Medicine; Emergency Provider Emergency Medicine; PCP Internal Medicine; Visit Provider Radiology Diagnostic Radiology | DX: K80.42 Calculus of bile duct with acute cholecystitis without obstruction (principal); N28.9 Disorder of kidney and ureter, unspecified | CPT/HCPCS: 74181 ==

== ENCOUNTER 2025-01-29 19:27 | Outpatient (BNV) | payer MEDICARE, SELFPAY | END 2025-01-30 | PROVIDERS: Admitting Provider Internal Medicine; Emergency Provider Emergency Medicine; PCP Internal Medicine; Visit Provider Specialist | DX: R50.9 Fever, unspecified (principal) | CPT/HCPCS: 74181 ==

== ENCOUNTER → 2025-01-29 19:27 | Outpatient (BNV) | payer MEDICARE, SELFPAY | PROVIDERS: Admitting Provider Internal Medicine; Emergency Provider Emergency Medicine; PCP Internal Medicine; Visit Provider Psychiatry & Neurology Neurology | DX: I63.9 Cerebral infarction, unspecified (principal) | CPT/HCPCS: 99222 ==

== ENCOUNTER → 2025-01-29 19:27 | Outpatient (BNV) | payer MEDICARE, SELFPAY | PROVIDERS: Admitting Provider Internal Medicine; Emergency Provider Emergency Medicine; PCP Internal Medicine; Visit Provider Internal Medicine | DX: K80.50 Calculus of bile duct without cholangitis or cholecystitis without obstruction (principal) | CPT/HCPCS: 99232 ==

== ENCOUNTER → 2025-01-29 19:27 | Outpatient (BNV) | payer MEDICARE, SELFPAY | PROVIDERS: Admitting Provider Internal Medicine; Emergency Provider Emergency Medicine; PCP Internal Medicine; Visit Provider Nurse Practitioner Family | DX: F01.B0 Vascular dementia, moderate, without behavioral disturbance, psychotic disturbance, mood disturbance, and anxiety (principal); G40.909 Epilepsy, unspecified, not intractable, without status epilepticus; S22.080A Wedge compression fracture of T11-T12 vertebra, initial encounter for closed fracture | CPT/HCPCS: 99233; 99239; 99497; G0180 ==

== ENCOUNTER 2025-02-17 12:40 | Inpatient (IN) | payer MEDICARE, SELFPAY ==
--- NOTE | ~2025-02-17 | CT_ITS ---
CLINICAL HISTORY: DECLINING MENTAL STATUS CT HEAD WITHOUT CONTRAST Comparison: CT/REG/SR - CT HEAD FOR STROKE - 01/29/25 17:16 EDT Findings: No acute intracranial hemorrhage, extra-axial fluid collection, hydrocephalus or midline shift. Age appropriate generalized parenchymal atrophy. There are periventricular and subcortical white matter hypodensities which are most likely related to microangiopathic gliosis. Intracranial arteriosclerosis. No evidence for acute large territorial infarct. Old left WARP KNITTER HELPER territory infarct. Remote lacunar infarcts in the right basal ganglia and left thalamus. No sinus or mastoid fluid. Visualized orbits: Bilateral aphakia. There is no acute fracture. IMPRESSION: No acute intracranial process. This document has been electronically signed by: Xena Barahona DO on 02/17/2025 17:15:38
--- NOTE | ~2025-02-17 | XR_ITS ---
EXAMINATION: XR CHEST CLINICAL INFORMATION: AMS COMPARISON: 01/29/2025 TECHNIQUE: AP view of the chest was obtained. FINDINGS: The cardiac, hilar, and mediastinal contours are normal. The lungs appear clear bilaterally. No pneumothorax or effusion. No focal osseous or soft tissue abnormality. Severe degenerative changes of both shoulder joints and the spine with associated scoliosis. XR/XR chest 1V IMPRESSION: No active pulmonary disease. Electronically signed by: Amadeo Laguerre MD 02/17/2025 01:38 PM [facility]
[2025-02-17 12:53] VITALS: BP 122/64; PULSE 77; RESP 18; TEMP 36.6; O2SAT 99; BMI 23.4
--- NOTE | 2025-02-17 12:53 | ED_ITS ---
HPI - General Adult General Chief complaint: General Medical Stated complaint: General Medical Time Seen by Provider: 02/17/25 13:14 Source: family (son), RN notes reviewed and old records reviewed Mode of arrival: wheelchair Limitations: altered mental status History of Present Illness ED Provider: Lindy HPI narrative: Patient is an 89-year-old female with history of dementia, dysarthria, aphasia, HTN, seizure disorder, CVA, DVT, 1st degree AV block, UTIs, hypothyroidism, GERD presenting to the emergency department with son who reports that patient lives with her daughter and over the past 5 days has had a progressive decline in mental status. He states that patient is typically not oriented but is verbal. Over the past few days has had decreased alertness and is not really speaking, only providing one-word answers to questions. He notes that in the past these symptoms typically occur when she has a UTI. He denies fevers. Notes that she was recently admitted with similar symptoms. Reports that altered mental status has been gradual over the past 5 days and progressively worsening. Patient unable to provide HPI. MD complaint: altered mental status Onset (ago): day(s) Related Data Home Medications ?Medication ?Instructions ?Recorded ?Confirmed acetaminophen 500 mg tablet 1,000 mg PO DAILY PRN Pain 12/03/23 02/17/25 loratadine 10 mg tablet 10 mg PO DAILY PRN Allergy S ymptoms 01/29/25 02/17/25 omeprazole 20 mg capsule,delayed 20 mg PO BID@0630,163 0 01/29/25 02/17/25 release Previous Rx's ?Medication ?Instructions ?Recorded aspirin 81 mg tablet,delayed 81 mg PO DAILY #30 tabs 0 10/01/23 release low height rollator #1 ea 10/26/23 magnesium oxide 400 mg PO DAILY #90 caps metoprolol succinate 50 mg 50 mg PO DAILY #90 tabs 06/24 tablet,extended release 24 hr levothyroxine 88 mcg tablet 88 mcg PO DAILY@0600 90 da ys #90 10/28/24 tabs lorazepam 1 mg tablet 0.5 mg (1/2 x 1 mg) PO DAILY @1700 01/24/25 anxiety #45 tabs amlodipine 10 mg tablet 10 mg PO DAILY 30 days #30 t abs 02/04/25 apixaban 5 mg tablet (Eliquis) 5 mg PO BID 30 days #60 tabs 02/04/25 pravastatin 40 mg tablet 40 mg PO DAILY 30 days #30 t abs 02/04/25 levetiracetam 1,000 mg tablet 1,000 mg PO BID #180 tab s 02/08/25 cefuroxime axetil 250 mg tablet 250 mg PO BID 5 days # 10 tabs 02/20/25 Allergies Allergy/AdvReac Type Severity Reaction Status Date / Time hydrochlorothiazide Allergy Unknown Electrolyte Verified 02/17/25 12:57 abnormality oxycodone (OXYCODONE) Allergy Unknown VOMITTING,C Verified 02/17/25 12:57 ONFUSION amlodipine AdvReac Intermediate leg Verified 02/17/25 12:57 swelling lisinopril AdvReac Intermediate cough Verified 02/17/25 12:57 losartan AdvReac Intermediate hyponatremi Verified 02/17/25 12:57 a Review of Systems 2 Review of Systems: As per HPI Yes all other systems are reviewed and are negative Constitutional: Constitutional: Reports as per HPI PMFSH Past Medical History Medical History 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 Facial droop Cerebral infarction Left leg DVT Upper respiratory infection COVID-19 virus infection Burning with urination Buttock pain Status post fall Dog bite of right arm Adult general medical exam Screening for diabetes mellitus Impacted cerumen of both ears Facial lesion Overweight (BMI 25.0-29.9) Hip osteoarthritis T12 vertebral fracture Reactive airways dysfunction syndrome Pneumonia Cholelithiasis CVA (cerebral vascular accident) Obesity (BMI 30-39.9) Hypercholesterolemia Vitamin D deficiency Hypothyroid Seizure disorder Anxiety Gout GERD (gastroesophageal reflux disease) Psoriatic arthritis Hypertension Surgical History History of Mohs surgery for squamous cell carcinoma of skin History of cataract surgery History of colonoscopy History of knee replacement procedure of right knee History of left knee replacement Family History Family History Father No problems noted. Mother Acute CVA (cerebrovascular accident) Diabetes Brother Cancer Daughter History of nephrectomy Son Heart disease Social History Social History Household Members: Family Household Members Other:: daughter Housing: House Do you presently have visiting nurse or other home services: No (goes to adult daycare) Alcohol intake: never Patient Tobacco Use Status: Never used Tobacco Tobacco use type: Cigarette e-Cigarette/Vaping Use: Never Used Second Hand Smoke Exposure: No Advance Directives Date on File: 12/04/23 service: No Current occupational status: retired Cognitive needs: No Hearing needs: Yes (hearing aides) Vision needs: No Physical Exam ED Vital Signs: Vital Signs - 24 hr 02/17/25 12:53 02/17/25 16:00 Temperature 98 F Pulse Rate 77 72 Respiratory Rate 18 18 Blood Pressure 122/64 122/64 Pulse Oximetry 99 95 Oxygen Delivery Method Room Air Room Air BMI result Body Mass Index 23.4 Vital signs have been reviewed and appear to be correct. Blood pressure normal. Heart rate normal. Respiratory rate normal. Temperature normal. Oxygen saturation normal. Const General: cooperative and no acute distress Orientation/consciousness: oriented to person Limitations: altered mental status HENOH Head: Yes normocephalic and Yes atraumatic Ears: external ears normal General nose exam: Normal external nose present Face and sinus: Yes face symmetric Mouth: oropharynx normal and moist mucous membranes Throat: Yes uvula midline Eyes Pupils: Equal, round and reactive pupils present Neck Neck: Yes normal visual inspection and Yes supple Resp Effort & Inspection: normal respiratory effort and able to speak in complete sentences Auscultation: clear to auscultation bilaterally Cardio Rate: regular rate Rhythm: regular rhythm Heart sounds: S1 normal heart sound present and S2 normal heart sound present GI Palpation (GI): Soft to palpation and nontender Auscultation: normoactive bowel sounds General: Yes no CVA tenderness Back/Spine/Pelvis Back: no CVA tenderness Skin General skin exam: elasticity normal and turgor normal Neuro General: oriented to person, moves all extremities, no focal motor deficits and CN's II-XI intact bilaterally Cranial nerves: Yes Equal, round and reactive pupils present Cognition (Neuro): abnormal cognition Speech: Expressive aphasia present Motor exam (neuro): Normal motor muscle tone present throughout Extrem General: Yes full ROM, Yes no pedal edema and Yes no calf tenderness Psych Mental Status: mental status grossly normal Affect: normal affect Thought process: Normal thought process present Course Course Course Narrative: This is an RME: Additional HPI, ROS, PE not included below will be deferred to primary provider. RME assessment and note performed by: Debra Barrett PA-C This is a [id number]-female, with a hx of GERD, psoriatic arthritis, osteoarthritis, bilateral knee replacements, first degree AVB. 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 recent admission for sepsis due to acute cholecystitis with choledocholithiasis, acute embolic watershed ischemia of the left semiovale and huang radiata. After discharge she was not back to her baseline. On she was able to complain of headache, at times she has times where she is verbal, other times she is not. Plan: pt to be brought back 02/17/20251850 Christiana Ray PA-C ----> Received this patient on sign out pending CT head read. CT head got read as no acute process. I went and examined the patient and spoke with the patient's family. They are adamant the patient was able to get herself onto the day program bus herself just 4 days ago and was able to feed herself but has continually declined since. Patient's urine showed a possible UTI. Given her history of UTI and delirium with UTI, I ordered 2 grams of IV ceftriaxone. Will admit to the hospitalist team for acute encephalopathy with possible UTI. Medications Administered Discontinued Medications Generic Name Dose Route Start Last Admin Trade Name Freq PRN Reason Stop Dose Admin Apixaban 5 mg 02/17/25 21:00 02/20/25 08:29 Apixaban 5 Mg Tablet PO 5 mg BID M[facility]ENO Administration Aspirin 81 mg 02/18/25 09:00 02/20/25 08:29 Aspirin Enteric Coated 81 Mg Tablet. PO 81 mg DAILY [facility] Administration Ceftriaxone Sodium 2 gm/ 50 mls @ 100 mls/hr 02/17/25 18:36 02/17/25 20:00 Sodium Chloride IV 02/17/25 19:05 Infused ONCE ONE Infusion Lactated Ringer's 1,000 mls @ 50 mls/hr 02/17/25 19:45 02/19/25 21:29 Lr IVCONT Infused .Q20H [facility] Infusion Ceftriaxone Sodium 1 gm/ 50 mls @ 100 mls/hr 02/18/25 19:45 02/19/25 22:05 Sodium Chloride IV Infused Q24H [facility] Infusion Levetiracetam 1,000 mg 02/17/25 21:00 02/20/25 08:29 Levetiracetam 1,000 Mg Tablet PO 1,000 mg BID [facility] Administration Levothyroxine Sodium 88 mcg 02/18/25 06:00 02/20/25 06:06 Levothyroxine Sodium 88 Mcg Tablet PO 88 mcg DAILY@0600 [facility] Administration Lorazepam 0.5 mg 02/18/25 17:00 02/20/25 16:03 Lorazepam 0.5 Mg Tablet PO 0.5 mg DAILY@1700 [facility] Administration Metoprolol Succinate 50 mg 02/18/25 09:00 02/20/25 08:29 Metoprolol Succinate Er 50 Mg Tab.Er.24h PO 50 mg DAILY [facility] Administration Protocol Omeprazole 20 mg 02/19/25 16:30 02/20/25 16:03 Omeprazole 20 Mg Capsule. PO 20 mg BID@0630,1630 [facility] Administration Pravastatin Sodium 40 mg 02/18/25 09:00 02/20/25 08:29 Pravastatin Sodium 40 Mg Tablet PO 40 mg DAILY [facility] Administration Sodium Chloride 3 ml 02/18/25 00:00 02/20/25 16:03 0.9 % Sodium Chloride Flush 3 Ml Syringe IVFLUSH Not Given QSHIFT [facility] Medical Decision Making Medical Decision Making MDM Narrative: Patient is an 89-year-old female with history of dementia, dysarthria, aphasia, HTN, seizure disorder, CVA, DVT, 1st degree AV block, UTIs, hypothyroidism, GERD presenting to the emergency department with son who reports that patient lives with her daughter and over the past 5 days has had a progressive decline in mental status. On exam patient is awake, A+Ox1, minimally verbal but attempts to answer questions, VS WNL, afebrile, neurological exam without focal deficits, physical exam findings as above. Given reported symptoms and physical exam findings, initial differential includes but is not limited to UTI, viral illness, pneumonia, dementia, failure to thrive. Labs notable for slight decline in H&H since recent visit, not at transfusable level. Viral serology negative. No significant EKG changes from prior. X-ray chest without evidence of pneumonia. CT head notable for . My interpretation is in agreement with the radiologist's interpretation. UA notable for moderate leukocytes, 21-50 WBCs, negative nitrites, negative blood, no bacteria, 6-10 epithelials. Urine that this could represent contamination, will wait for urine culture prior to treatment with antibiotics. Patient signed out to [facility] pending CT head. PT/CM evaluation ordered as son states she may need more assistance at home. He also notes that she attends a day program and they were requesting a medical evaluation and clearance prior to her return which is why he brought her into the emergency department today. Differential Diagnosis Differential Diagnoses: The differential diagnosis associated with the presentation includes As per [facility] Admission/Observation Consideration of admission/observation: Escalation of care including admission/observation considered Lab Data [facility] Lab Attestation statement: I reviewed the patient's lab results. as per [facility] 02/18/25 08:06 02/18/25 08:06 Labs: Lab Results 02/17/25 02/17/25 Range/Units 14:11 15:55 WBC 4.4 L (4.8-10.8) X10*3/uL RBC 3.92 L (4.20-5.50) X10*6/uL Hgb 11.6 L (12.0-16.0) g/dl Hct 35.2 L (37.0-47.0) % MCV 89.8 (80.0-98.0) fL MCH 29.6 (27.0-33.0) pg MCHC 33.0 (31.0-35.0) g/dl RDW 12.8 (11.0-16.0) % Plt Count 171 (160-400) X10*3/uL MPV 10.6 (9.4-12.3) fL Immature Gran % (Auto) 0.2 (0.0-0.4) % Neut % (Auto) 76.0 H (45-73) % Lymph % (Auto) 10.1 L (20-40) % [place] % (Auto) 9.2 (2-11) % Eos % (Auto) 2.9 (0-4) % Baso % (Auto) 1.6 (0-2) % Lymph # (Auto) 0.5 L (1.2-4.9) X10*3/uL [place] # (Auto) 0.4 (0.1-1.2) X10*3/uL Eos # (Auto) 0.1 (0.0-0.4) X10*3/uL Baso # (Auto) 0.1 (0.0-0.2) X10*3/uL Abs Immat Gran (auto) 0.01 (0.00-0.03) X10*3/uL Absolute Neuts (auto) 3.4 (2.0-8.3) x10*3/uL Absolute Nucleated RBC 0.000 (0.0-0.012) X10*3/uL Nucleated RBC % (auto) 0.0 (0.0-0.2) /100WBC Sodium 139 (135-145) mmol/L Potassium 3.5 (3.3-5.1) mmol/L Chloride 103 (96-108) mmol/L Carbon Dioxide 28 (22-29) mmol/L Anion Gap 12 (12-20) BUN 10 (9-16) mg/dL Creatinine 0.65 (0.5-1.4) mg/dL Estim Creat Clear Calc 42.9 Estimated GFR > 60 Random Glucose 114 (60-115) mg/dL Calcium 8.8 (8.4-10.2) mg/dL Magnesium 1.9 (1.6-2.6) mg/dL Total Bilirubin 0.3 (0.0-1.0) mg/dL Direct Bilirubin 0.1 (0.0-0.5) mg/dL AST 16 (5-31) U/L ALT 8 (0-31) U/L Alkaline Phosphatase 64 (39-117) U/L Troponin I High Sens 6.9 (<3.5-17.0) ng/L Total Protein 6.1 L (6.5-8.0) g/dL Albumin 3.6 (3.5-5.0) g/dL Urine Color Yellow Urine Appearance Clear Urine pH 7.5 (5.0-9.0) Ur Specific [place] 1.015 (1.005-1.025) Urine Protein Negative (Neg-Trace) mg/dL Urine Glucose (UA) Negative (Negative) mg/dL Urine Ketones Negative (Negative) mg/dL Urine Blood Negative (Negative) Urine Nitrite Negative (Negative) Ur Leukocyte Esterase Moderate (2+) H (Negative) Urine RBC 0-2 (0-2) /HPF Urine WBC 21-50 H (0-5) /HPF Ur Squamous Epith Cells 6-10 (0-2) /HPF Urine Bacteria None Seen (None Seen) Hyaline Casts 3-5 (0-2) /LPF Influenza Type A (PCR) NEGATIVE (Negative) Influenza Type B (PCR) NEGATIVE (Negative) RSV RNA Qual (PCR) NEGATIVE (Negative) SARS-CoV-2 RNA (RT-PCR) NEGATIVE (Negative) Independent Interpretation I performed an independent interpretation of an: EKG ( Sinus rhythm with first- degree AV block, rate 72 beats per minute, slightly prolonged MO interval, normal QTC, no significant change from prior), Plain X-Ray and CT Scan Interpretation: No evidence of pneumonia on chest x-ray. Radiology Impression Discussion of test interpretation with radiology: I have reviewed the radiologist's reading. Radiologist Impression: XR/XR chest 1V IMPRESSION: No active pulmonary disease. Independent Historian Clinical information obtained from an independent historian. History obtained from or confirmed by: Other (son) External Record Review External record reviewed: Inpatient record, Office record and Outpatient record Discharge Plan Discharge Clinical Impression: Confusion Patient Disposition: Admitted As Inpatient Interventions: Admission Worksheet (ED) Last Done: 02/18/25 02:51 Discharge Date/Time: 02/18/25 02:51
--- NOTE | 2025-02-17 13:00 | ECG_ITS ---
Test Reason : AMS Blood Pressure : */* mmHG Vent. Rate : 72 BPM Atrial Rate : 72 BPM P-R Int : 214 ms QRS Dur : 96 ms QT Int : 390 ms P-R-T Axes : 6 -30 15 degrees QTcB Int : 427 ms Sinus rhythm with 1st degree A-V block Left axis deviation Incomplete right bundle branch block Moderate voltage criteria for LVH, may be normal variant ( R in aVL , [place] product ) Possible Anterior infarct , age undetermined Abnormal ECG When compared with ECG of 29-Jan-2025 17:37, No significant change was found Referred By: Debra Barrett Electronically Signed By: BABAK GOERGE
[2025-02-17 14:18] LABS: MANUAL DIFF FLAG NO
[2025-02-17 14:27] LABS: Hematocrit 35.2 % (37.0-47.0); Hemoglobin 11.6 g/dl (12.0-16.0); Imm Gran Abs Auto 0.01 X10*3/uL (0.00-0.03); Imm Gran Pct Auto 0.2 % (0.0-0.4); Lymphocytes Absolute Auto 0.5 X10*3/uL (1.2-4.9); Mean Corpuscular HGB Conc 33.0 g/dl (31.0-35.0); Mean Corpuscular Hemoglobin 29.6 pg (27.0-33.0); Mean Corpuscular Volume 89.8 fL (80.0-98.0); NRBC Abs Auto 0.000 X10*3/uL (0.0-0.012); NRBC Pct Auto 0.0 /100WBC (0.0-0.2); Platelet Count 171 X10*3/uL (160-400); Red Blood Count 3.92 X10*6/uL (4.20-5.50); White Blood Count 4.4 X10*3/uL (4.8-10.8)
[2025-02-17 14:34] LABS: Alanine Aminotransferase 8 U/L (0-31); Albumin Level 3.6 g/dL (3.5-5.0); Alkaline Phosphatase 64 U/L (39-117); Anion Gap 12 (12-20); Aspartate Amino Transferase 16 U/L (5-31); Blood Urea Nitrogen 10 mg/dL (9-16); Calcium 8.8 mg/dL (8.4-10.2); Carbon Dioxide 28 mmol/L (22-29); Chloride 103 mmol/L (96-108); Creatinine Clr Calc Pharmacy 42.9; Estimated Glomerular Filt Rate > 60; Magnesium 1.9 mg/dL (1.6-2.6); Potassium 3.5 mmol/L (3.3-5.1); Sodium 139 mmol/L (135-145); Total Protein 6.1 g/dL (6.5-8.0)
[2025-02-17 14:41] LABS: Troponin-I High Sensitivity 6.9 ng/L (<3.5-17.0)
[2025-02-17 14:57] LABS: Resp Syncy Virus RNA Qual PCR NEGATIVE (Negative); SARS COV2 PCR INHOUSE NEGATIVE (Negative)
[2025-02-17 16:00] VITALS: BP 122/64; PULSE 72; RESP 18; O2SAT 95
[2025-02-17 16:11] LABS: Appearance Urine Clear; Glucose Urine UA Negative (Negative); PH 7.5 (5.0-9.0); Specific Gravity - Urine 1.015 (1.005-1.025); UMIC TRIGGER UACC YES
[2025-02-17 16:31] LABS: UACC Culture Trigger YES
--- NOTE | 2025-02-17 18:33 | HO.NURTONUR ---
Addendum entered by Yanira Cuello RN 02/17/25 21:22: Diet order is npo x sips w/ meds. Pt is unable use straw because she seems to lack the ability to suck. Pt swallows small pills w/ sips without problems, but the big ones, like Keppra, she will spit out or pocket in cheek. Pt has swallow eval pending. Addendum entered by Yanira Cuello RN 02/17/25 19:14: Pt urine shows uti, pt tx'd w/ rocephin Original Note: Pt BIBA per son, pt had recent admission to [facility] for uti and hypokalemia. Pt was evaluated by PT and sent home w/ home PT. Pt continued to go to her Day program for the past two days without incident. Today family was called because pt was behaving not herself but has stopped talking and requiring to be fed; both unlike pt at baseline. Labs seem to be wnl, CT neg.
[2025-02-17 18:57] VITALS: BP 122/62; PULSE 69; RESP 15; TEMP 36.4; O2SAT 98
--- NOTE | 2025-02-17 19:37 | P.HPHOSP_ITS ---
History of Present Illness Date of Service: 02/17/25 Chief Complaint: Gen weakness 89-YEAR-OLD FEMALE PAST MEDICAL HISTORY OF history, seizure disorder, DVT, first-degree AV block, recurrent UTIs, hypothyroidism, GERD, recent CVA with resultant aphasia, dysarthria; presented to the hospital today with a chief complaint of confusion. Reportedly patient had a recent CVA and was discharged from the rehab about a week ago; initially patient was doing okay over the past 4-5 days patient has been gradually declining; unable to manage her ADLs; appears to be slightly more confused; not really speaking much; hence family brought her to the hospital for further evaluation. Also reported that patient has been generally weak and tired and has been not eating. Review of all other systems is limited ER course: Per ER team, patient was able to stand up and walk to the bed; patient was less communicative but common cooperative; CT head showed no acute change. Urinalysis abnormal consistent with UTI. Chest x-ray showed no evidence of pneumonia. 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 Facial droop Cerebral infarction Left leg DVT Upper respiratory infection COVID-19 virus infection Burning with urination Buttock pain Status post fall Dog bite of right arm Adult general medical exam Screening for diabetes mellitus Impacted cerumen of both ears Facial lesion Overweight (BMI 25.0-29.9) Hip osteoarthritis T12 vertebral fracture Reactive airways dysfunction syndrome Pneumonia Cholelithiasis CVA (cerebral vascular accident) Obesity (BMI 30-39.9) Hypercholesterolemia Vitamin D deficiency Hypothyroid Seizure disorder Anxiety Gout GERD (gastroesophageal reflux disease) Psoriatic arthritis Hypertension Family History Father No problems noted. Mother Acute CVA (cerebrovascular accident) Diabetes Brother Cancer Daughter History of nephrectomy Son Heart disease Surgical History History of Mohs surgery for squamous cell carcinoma of skin History of cataract surgery History of colonoscopy History of knee replacement procedure of right knee History of left knee replacement Social History Household Members: Family Household Members Other:: daughter Housing: House Do you presently have visiting nurse or other home services: No (goes to adult daycare) Alcohol intake: never Patient Tobacco Use Status: Never used Tobacco Tobacco use type: Cigarette Smoked in Last 30 Days: No e-Cigarette/Vaping Use: Never Used Second Hand Smoke Exposure: No Use of substances other than those prescribed or required for medical reasons: No Advance Directives: Yes Advance Directives on File: Yes Advance Directives Date on File: 12/04/23 Do you have a plan to hurt others: No Plan Patient : No : No Poor oral hygiene: No service: No Current occupational status: retired Cognitive needs: No Hearing needs: Yes (hearing aides) Vision needs: No Meds Allergies Allergy/AdvReac Type Severity Reaction Status Date / Time hydrochlorothiazide Allergy Unknown Electrolyte Verified 02/17/25 12:57 abnormality oxycodone (OXYCODONE) Allergy Unknown VOMITTING,C Verified 02/17/25 12:57 ONFUSION amlodipine AdvReac Intermediate leg Verified 02/17/25 12:57 swelling lisinopril AdvReac Intermediate cough Verified 02/17/25 12:57 losartan AdvReac Intermediate hyponatremi Verified 02/17/25 12:57 a Active Medications: Current Medications Albuterol/Ipratropium (Albuterol/Iprat 2.5/0.5mg 3 Ml Ampul.Neb) 3 ml INHALE Q4H PRN PRN Reason: Shortness of Breath/Wheezing Heparin Sodium (Porcine) (Heparin Sodium,Porcine 5,000 Unit/Ml Vial) 5,000 unit SUBCUT Q12H [place] Lactated Ringer's (Lr) 1,000 mls @ 50 mls/hr IVCONT .Q20H [place] Ceftriaxone Sodium 1 gm/ (Sodium Chloride) 50 mls @ 100 mls/hr IV Q24H [facility] Sodium Chloride (0.9 % Sodium Chloride Flush 3 Ml Syringe) 3 ml IVFLUSH QSHIFT [facility] Home Medications ?Medication ?Instructions ?Recorded ?Confirmed ?Last Taken ?Type acetaminophen 500 mg tablet 1,000 mg PO DAILY PRN Pain 12/03/23 02/17/25 Unknown History loratadine 10 mg tablet 10 mg PO DAILY PRN Allergy S ymptoms 01/29/25 02/17/25 Unknown History omeprazole 20 mg capsule,delayed 20 mg PO BID@0630,163 0 01/29/25 02/17/25 01/29/25 History release Physical Exam 2 Vital Signs and Narrative: Vital Signs: Last Vital Signs Temp 97.5 F 02/17/25 18:57 Pulse 69 02/17/25 18:57 Resp 15 02/17/25 18:57 BP 122/62 02/17/25 18:57 Pulse Ox 98 02/17/25 18:57 O2 Del Method Room Air 02/17/25 18:57 BMI result Body Mass Index 23.4 Gen: Appears be in no acute distress HEENT: NCAT, Moist mucosa. Pulmonary: Vesicular breath sounds, fair air entry CVS: Normal S1-S2 Abdomen: BS+, Soft, Nontender Extremities: Warm well perfused Neuro: Alert and awake. Results Labs 02/17/25 14:11 02/17/25 14:11 Labs: Laboratory Results - last 24 hr 02/17/25 02/17/25 14:11 15:55 MCV 89.8 MCH 29.6 MCHC 33.0 RDW 12.8 Plt Count 171 MPV 10.6 Immature Gran % (Auto) 0.2 Neut % (Auto) 76.0 H Lymph % (Auto) 10.1 L [place] % (Auto) 9.2 Eos % (Auto) 2.9 Baso % (Auto) 1.6 Lymph # (Auto) 0.5 L [place] # (Auto) 0.4 Eos # (Auto) 0.1 Baso # (Auto) 0.1 Abs Immat Gran (auto) 0.01 Absolute Neuts (auto) 3.4 Absolute Nucleated RBC 0.000 Nucleated RBC % (auto) 0.0 Anion Gap 12 Estim Creat Clear Calc 42.9 Estimated GFR > 60 Random Glucose 114 Calcium 8.8 Magnesium 1.9 Total Bilirubin 0.3 Direct Bilirubin 0.1 AST 16 ALT 8 Alkaline Phosphatase 64 Troponin I High Sens 6.9 Total Protein 6.1 L Albumin 3.6 Urine Color Yellow Urine Appearance Clear Urine pH 7.5 Ur Specific [place] 1.015 Urine Protein Negative Urine Glucose (UA) Negative Urine Ketones Negative Urine Blood Negative Urine Nitrite Negative Ur Leukocyte Esterase Moderate (2+) H Urine RBC 0-2 Urine WBC 21-50 H Ur Squamous Epith Cells 6-10 Urine Bacteria None Seen Hyaline Casts 3-5 Influenza Type A (PCR) NEGATIVE Influenza Type B (PCR) NEGATIVE RSV RNA Qual (PCR) NEGATIVE SARS-CoV-2 RNA (RT-PCR) NEGATIVE Imaging Radiologist's Impressions: Impressions Chest X-Ray 02/17/25 13:27 IMPRESSION: No active pulmonary disease. Electronically signed by: Amadeo Laguerre MD 02/17/2025 01:38 PM [facility] Assessment and Plan (1) Confusion: Status: Acute Plan 89-YEAR-OLD FEMALE PAST MEDICAL HISTORY OF history, seizure disorder, DVT, first-degree AV block, recurrent UTIs, hypothyroidism, GERD, recent CVA with resultant aphasia, dysarthria; presented to the hospital today with a chief complaint of confusion. Altered mental status: Toxic metabolic encephalopathy: Supportive care Aspiration precautions Speech and swallow eval P.T./OT when ready for discharge UTI: Continue ceftriaxone. Follow up cultures. Recent CVA: Patient has dysarthria/aphasia. Continue home aspirin, statin HX seizure: Continue home Keppra HX hypothyroidism: Continue levothyroxine HX DVT: Continue Eliquis Hypertension: Continue home metoprolol DVT prophylaxis: Patient on Eliquis Code status: DNR/DNI Quality Stroke Does the patient have a stroke diagnosis?: No VTE Prior VTE?: No VTE Risk Level:: Medical - moderate - high VTE Device Contraindication: Treatment Not Indicated VTE Drug Contraindication: N/A - Med Ordered
--- NOTE | 2025-02-17 19:54 | MHC.CM.ED ---
Addendum entered by Terri Leiva 02/17/25 20:03: HCP on file. HCP #1 Paul Dorado ([phone]) and HCP #2 Katie Melendrez ([phone]). Original Note: CM met with patient and family. Pt is non-verbal. Pt was admitted to [facility] [place] 01/29-02/04 with stroke like symptoms. Her HCP was invoked on 02/03. Pt was speaking, could feed herself. PT at that time recommended home with services. [facility] accepted patient. They came once, as patient was attending adult day care this past Sunday and Sunday, she was not considered homebound. Family tells CM she was taking the bus to day care and ambulating with her walker. Day care called her son, Paul ([phone]) to come and pick her up, as she was not acting herself. They told the family she could not return to day care without a doctors note clearing her to attend. Pt has progressively worsened since. She is now non-verbal, cannot feed herself or hold a cup.Pt lives with her daughter, Katie ([phone]). She uses a walker. PCP is Dr. Villanueva. Insurance is verified. Pt has a qualifying stay. PT pending. STR requests are #1 Candace Lujan and #2 RAYNA. CM voiced concerns to provider regarding above. Provider examined patient. Pt will be admitted. Awaiting hospitalist
--- NOTE | 2025-02-17 20:10 | PHA.MEDREC ---
Pharmacy Consult ? Medication Reconciliation Pharmacy has completed the medication reconciliation.
--- NOTE | 2025-02-17 20:11 | PHA.MEDREC ---
Pharmacy Consult ? Medication Reconciliation Pharmacy has completed the medication reconciliation.
[2025-02-17] MEDS: Lactated Ringers 1,000 ML 50 ML IVCONT (20:48)
--- NOTE | 2025-02-18 00:34 | PC.NURSE ---
This RN assumed pt care @ 2300. Pt resting quietly in bed, no signs of distress. Plan of care ongoing.
[2025-02-18 01:37] VITALS: BP 128/71; PULSE 75; RESP 15; TEMP 36.7; O2SAT 96
[2025-02-18 03:05] VITALS: BMI 22.2
[2025-02-18 03:06] VITALS: BP 97/56; PULSE 75; RESP 18; TEMP 36.4; O2SAT 95
--- NOTE | 2025-02-18 04:22 | PC.NURSE ---
Upon initial assessment, patient sleeping comfortably. Attmepted to wake patient to perform nursing swallow eval. Patient drowsy, unable to follow directions. Holding off on swallow eval as of this writing.
[2025-02-18 07:45] VITALS: BP 130/61; PULSE 72; RESP 16; TEMP 36.1; O2SAT 97
[2025-02-18 08:28] LABS: MANUAL DIFF FLAG NO
[2025-02-18 08:31] LABS: Hematocrit 39.1 % (37.0-47.0); Hemoglobin 13.1 g/dl (12.0-16.0); Imm Gran Abs Auto 0.03 X10*3/uL (0.00-0.03); Imm Gran Pct Auto 0.6 % (0.0-0.4); Lymphocytes Absolute Auto 0.5 X10*3/uL (1.2-4.9); Mean Corpuscular HGB Conc 33.5 g/dl (31.0-35.0); Mean Corpuscular Hemoglobin 30.1 pg (27.0-33.0); Mean Corpuscular Volume 89.9 fL (80.0-98.0); NRBC Abs Auto 0.000 X10*3/uL (0.0-0.012); NRBC Pct Auto 0.0 /100WBC (0.0-0.2); Platelet Count 153 X10*3/uL (160-400); Red Blood Count 4.35 X10*6/uL (4.20-5.50); White Blood Count 5.3 X10*3/uL (4.8-10.8)
[2025-02-18 08:46] VITALS: BP 130/61; PULSE 72
[2025-02-18 08:46] LABS: Anion Gap 13 (12-20); Blood Urea Nitrogen 6 mg/dL (9-16); Calcium 9.0 mg/dL (8.4-10.2); Carbon Dioxide 24 mmol/L (22-29); Chloride 103 mmol/L (96-108); Creatinine Clr Calc Pharmacy 52.7; Estimated Glomerular Filt Rate > 60; Potassium 3.5 mmol/L (3.3-5.1); Sodium 136 mmol/L (135-145)
[2025-02-18] MEDS: Metoprolol Succinate ER 50 MG TAB.ER.24H PO (08:46)
[2025-02-18] MEDS: Aspirin Enteric Coated 81 MG TABLET.DR PO (08:47)
[2025-02-18] MEDS: 0.9 % Sodium Chloride Flush 3 ML SYRINGE IVFLUSH ×3 (08:58→20:33)
--- NOTE | 2025-02-18 11:58 | MHC.CM.PN ---
Addendum entered by Ashley Harris 02/18/25 15:31: IMM 02/18/25 Original Note: DX UTI Lives with her dtr. Dtr assists with ADLS ect Son is HCP, on file PT evaluation performed, recommendation is for STR. Per P.T. a decline since prior admit <30 days ago DP Home with [facility] vs str. HCP is on file PCP is Dr CLAY
--- NOTE | 2025-02-18 12:45 | HO.PM.IMPN ---
Subjective Subjective Date of Service: 02/18/25 Interval History: Patient seen and examined at bedside this morning, patient pleasantly demented at this time, oriented only to self. Currently being treated for UTI. Review of Systems Review of Systems: Yes all other systems are reviewed and are negative Physical Exam Exam: Exam: General: AxOx1, No acute distress Head: AT/NC ENT: Moist mucous membranes Neck: supple CVS; RRR, S1 S2 normal Lungs: Clear bilateral breath sounds, no wheezes or crackles Abd: Soft non tender, non distended Ext: No edema and no calf tenderness MSK: moving all 4 limbs Skin: No cyanosis or edema Psych: Cooperative with exam Neurology: dysarthria and aphasia Vital Signs: Vital Signs: Last Vital Signs Temp 97.0 F 02/18/25 07:45 Pulse 72 02/18/25 08:46 Resp 16 02/18/25 07:45 BP 130/61 02/18/25 08:46 Pulse Ox 97 02/18/25 07:45 O2 Del Method Room Air 02/18/25 07:45 BMI result Body Mass Index 22.2 Objective Data Active Medications Albuterol/Ipratropium (Albuterol/Iprat 2.5/0.5mg 3 Ml Ampul.Neb) 3 ml INHALE Q4H PRN PRN Reason: Shortness of Breath/Wheezing Apixaban (Apixaban 5 Mg Tablet) 5 mg PO BID [facility] Last Admin: 02/18/25 08:47 Dose: 5 mg Documented By: LIZANDRO Aspirin (Aspirin Enteric Coated 81 Mg Tablet.) 81 mg PO DAILY [facility] Last Admin: 02/18/25 08:47 Dose: 81 mg Documented By: LIZANDRO Lactated Ringer's (Lr) 1,000 mls @ 50 mls/hr IVCONT .Q20H [facility] Last Admin: 02/17/25 20:48 Dose: 50 mls/hr Documented By: ABDELRAHMAN Ceftriaxone Sodium 1 gm/ (Sodium Chloride) 50 mls @ 100 mls/hr IV Q24H [facility] Levetiracetam (Levetiracetam 1,000 Mg Tablet) 1,000 mg PO BID [facility] Last Admin: 02/18/25 08:46 Dose: 1,000 mg Documented By: LIZANDRO Levothyroxine Sodium (Levothyroxine Sodium 88 Mcg Tablet) 88 mcg PO DAILY@0600 [facility] Last Admin: 02/18/25 05:13 Dose: 88 mcg Documented By: BUSRADHA Lorazepam (Lorazepam 0.5 Mg Tablet) 0.5 mg PO DAILY@1700 [facility] Metoprolol Succinate (Metoprolol Succinate Er 50 Mg Tab.Er.24h) 50 mg PO DAILY [facility]; Protocol Last Admin: 02/18/25 08:46 Dose: 50 mg Documented By: LIZANDRO Pravastatin Sodium (Pravastatin Sodium 40 Mg Tablet) 40 mg PO DAILY [facility] Last Admin: 02/18/25 08:46 Dose: 40 mg Documented By: LIZANDRO Sodium Chloride (0.9 % Sodium Chloride Flush 3 Ml Syringe) 3 ml IVFLUSH QSHIFT [facility] Last Admin: 02/18/25 08:58 Dose: 3 ml Documented By: LIZANDRO Labs 02/18/25 08:06 02/18/25 08:06 Labs: Laboratory Results - last 24 hr 02/17/25 02/17/25 02/18/25 14:11 15:55 08:06 MCV 89.8 89.9 MCH 29.6 30.1 MCHC 33.0 33.5 RDW 12.8 12.4 Plt Count 171 153 L MPV 10.6 10.1 Immature Gran % (Auto) 0.2 0.6 H Neut % (Auto) 76.0 H 78.1 H Lymph % (Auto) 10.1 L 10.0 L [place] % (Auto) 9.2 8.3 Eos % (Auto) 2.9 1.9 Baso % (Auto) 1.6 1.1 Lymph # (Auto) 0.5 L 0.5 L [place] # (Auto) 0.4 0.4 Eos # (Auto) 0.1 0.1 Baso # (Auto) 0.1 0.1 Abs Immat Gran (auto) 0.01 0.03 Absolute Neuts (auto) 3.4 4.1 Absolute Nucleated RBC 0.000 0.000 Nucleated RBC % (auto) 0.0 0.0 Anion Gap 12 13 Estim Creat Clear Calc 42.9 52.7 Estimated GFR > 60 > 60 Random Glucose 114 86 Calcium 8.8 9.0 Magnesium 1.9 Total Bilirubin 0.3 Direct Bilirubin 0.1 AST 16 ALT 8 Alkaline Phosphatase 64 Troponin I High Sens 6.9 Total Protein 6.1 L Albumin 3.6 Urine Color Yellow Urine Appearance Clear Urine pH 7.5 Ur Specific [place] 1.015 Urine Protein Negative Urine Glucose (UA) Negative Urine Ketones Negative Urine Blood Negative Urine Nitrite Negative Ur Leukocyte Esterase Moderate (2+) H Urine RBC 0-2 Urine WBC 21-50 H Ur Squamous Epith Cells 6-10 Urine Bacteria None Seen Hyaline Casts 3-5 Influenza Type A (PCR) NEGATIVE Influenza Type B (PCR) NEGATIVE RSV RNA Qual (PCR) NEGATIVE SARS-CoV-2 RNA (RT-PCR) NEGATIVE Assessment and Plan (1) Toxic metabolic encephalopathy: Status: Acute (2) Urinary tract infection: Status: Acute (3) Seizure disorder: Status: Acute (4) Senile purpura: Status: Acute Plan 89-YEAR-OLD FEMALE PAST MEDICAL HISTORY OF history, seizure disorder, DVT, first-degree AV block, recurrent UTIs, hypothyroidism, GERD, recent CVA with resultant aphasia, dysarthria; presented to the hospital today with a chief complaint of confusion. Toxic metabolic encephalopathy, likely secondary to Urinary tract infection Urinary tract infection, pending cultures -labs and imaging reviewed -continue w/ ceftriaxone, will adjust based on culture results -continue supportive care and aspiration precautions Senile purpura Will continue ASA and eliquis as benefits outweight risks at this time monitor for any bleeding history of recent nonhemorrhagic embolic CVA seen on MRI on 01/30 -Continue home aspirin, statin for secondary stroke prevention HX seizure: Continue home Keppra HX hypothyroidism: Continue levothyroxine HX DVT: Continue Eliquis Hypertension: Continue home metoprolol DVT prophylaxis: Patient on Eliquis Code status: DNR/DNI Total time managing care of this patient today: 35 minutes. Quality Stroke Does the patient have a stroke diagnosis?: No VTE Prior VTE?: No VTE Risk Level:: Medical - moderate - high VTE Device Contraindication: Treatment Not Indicated VTE Drug Contraindication: N/A - Med Ordered
--- NOTE | 2025-02-18 14:02 | MHC.SL.SWA ---
Speech Pathologist Impression: Risk of Aspiration, Oropharyngeal Dysphagia Risk of Aspiration Due to: Confusion, missing dentition Dysphasia Diet Status: Start on NDD2/THIN Liquid Consistency and Strategies for Safe Swallow: Liquid Intake Recommendation: Thin Solid Food Consistency: Dietary Recommendations: Grnd/Mech Altered (NDD2) Additional Modifications to Solid Foods: Patient seen this a.m. for swallow eval. Patient is confused and not following commands or answering questions. Slow mastication with solids and mild oral residue which cleared with dry swallow, no s/s aspiration on trials of thin, puree, and ground consistencies. Recommend start on GROUND/MECH ALTERED diet (NDD2) for ease of mastication and THIN liquids, pills CRUSHED in PUREE. Patient will need 1:1 assistance feeding d/t confusion and need for cuing. Notified MD, RN, and RD of recommendations via secure text. COPY LATHE OPERATOR requested MD enter diet order for patient to receive meals. Oral Medication Intake: Crushed with Puree Please contact the pharmacy regarding appropriate crushable or liquid drug formulations that are available whenever modified delivery is recommended. Supervision While Eating and Drinking for Safe Swallow: Total Assistance (1:1) Foods to Avoid: Difficult to chew solids. Recommendation for Speech: Inpatient Speech Therapy Speech Therapy through Rehab Facility Comment: Continue ST for dysphagia tx during inpatient stay and likely at the next level of care as well. Frequency/Duration: Date Range for Service Req: Timeline to reassess: Water Service Dispatcher Clinican/Clinical Fellow: No Supervisory Statement: I have reviewed and agree with the student/clinical fellow's documentation: N/A Speech Language Pathologist: Savannah Louis M.A., CCC-COPY LATHE OPERATOR
[2025-02-18 14:57] VITALS: BP 128/58; PULSE 71; RESP 16; TEMP 36.2; O2SAT 97
[2025-02-18] MEDS: Lactated Ringers 1,000 ML 50 ML IVCONT (15:05)
[2025-02-18 20:00] VITALS: BP 140/62; PULSE 75; RESP 17; TEMP 35.7; O2SAT 95
[2025-02-19 04:00] VITALS: BP 122/72; PULSE 71; RESP 17; TEMP 36.7; O2SAT 96
[2025-02-19 07:31] VITALS: BP 151/72; PULSE 75; RESP 16; TEMP 36.1; O2SAT 96
[2025-02-19] MEDS: Aspirin Enteric Coated 81 MG TABLET.DR PO (09:45)
[2025-02-19] MEDS: Lactated Ringers 1,000 ML 50 ML IVCONT (09:45)
[2025-02-19] MEDS: Metoprolol Succinate ER 50 MG TAB.ER.24H PO (09:45)
--- NOTE | 2025-02-19 10:33 | MHC.SL.SWA ---
Speech Pathologist Impression: Risk of Aspiration Due to: Dysphasia Diet Status: Recommend continue on current diet of Ground Mechanical (NDD2) with thin liquids, pills crushed in puree. Patient requires full assistance/1-1 feeding at all meals. Liquid Consistency and Strategies for Safe Swallow: Liquid Intake Recommendation: Thin Liquid Intake Strategies: Small Sips No Straws Solid Food Consistency: Dietary Recommendations: Grnd/Mech Altered (NDD2) Additional Modifications to Solid Foods: Mildly slowed and prolonged mastication, otherwise swallow deemed mostly WFL. Note good oral control, timely swallow, good oral clearance, and no overt s/s of aspiration. Patient presents with some confusion and scattered dentition is noted. Recommend START on Chopped/Advanced (NDD3) diet and Thin liquids, pills to be administered Whole in Puree or Liquid. Patient will need assistance with set up of tray, supervise and re-orient to feeding as needed. Oral Medication Intake: Crushed with Puree Please contact the pharmacy regarding appropriate crushable or liquid drug formulations that are available whenever modified delivery is recommended. Compensatory Strategies and Precautions to be Taken for Safe Swallow: Sitting Upright (90 deg) No Straw Liquids from Cup Small Bites and Sips Alternate Liquids/Solids Supervision While Eating and Drinking for Safe Swallow: Total Assistance (1:1) Foods to Avoid: Difficult to chew solids. Swallowing Recommended Treatments: Compens. Strategy Educat. Recommendation for Speech: Inpatient Speech Therapy Speech Therapy through Rehab Facility Comment: Patient seen this morning at breakfast for toleration of diet. Therapist is familiar with patient from outpatient assessment last year, presents as having had marked cognitive decline. Noted, for example, patient could not retrieve son's name (Paul), and was minimally verbal throughout. Patient, however, was non-verbally expressive and engaged in the meal. Patient took bites of oatmeal and banana, produced a timely munch for oral phase and timely swallow with complete oral clearance after swallow. Patient also took sips of juice by controlled cup sip, producing a timely oral phase and mild delay/absent trigger on swallow. ELECTRICAL FOREMAN attempted to encourage independence, e.g. handed milk container with straw to patient, patient clearly confused by straw. Patient handed cup, which she held but did not initiate. Patient also handed yogurt with spoon, and again patient did not initiate, ultimately requiring full support for the entirety of the meal. Patient is tolerating current diet of Ground Mechanical (NDD2) with thin liquids, pills crushed in puree. Patient clearly requires full assistance/1-1 feeding at all meals. ELECTRICAL FOREMAN will continue to follow. Frequency/Duration: Date Range for Service Req: Timeline to reassess: Honeycomb Blanket Maker Clinican/Clinical Fellow: No Supervisory Statement: I have reviewed and agree with the student/clinical fellow's documentation: N/A Speech Language Pathologist: Rafaela Todd M.A., CCC-ELECTRICAL FOREMAN
--- NOTE | 2025-02-19 10:57 | HO.PM.IMPN ---
Subjective Subjective Date of Service: 02/19/25 Interval History: Patient at bedside this morning, pleasantly demented, denies any chest pain, shortness of breath, awaiting urine cultures, continue with IV antibiotics. Review of Systems Review of Systems: Yes Unobtainable due to mental status Physical Exam Exam: Exam: General: AxOx1, No acute distress Head: AT/NC ENT: Moist mucous membranes Neck: supple CVS; RRR, S1 S2 normal Lungs: Clear bilateral breath sounds, no wheezes or crackles Abd: Soft non tender, non distended Ext: No edema and no calf tenderness MSK: moving all 4 limbs Skin: No cyanosis or edema Psych: Cooperative with exam Neurology: no focal deficit Vital Signs: Vital Signs: Last Vital Signs Temp 96.9 F 02/19/25 07:31 Pulse 75 02/19/25 07:31 Resp 16 02/19/25 07:31 BP 151/72 H 02/19/25 07:31 Pulse Ox 96 02/19/25 07:31 O2 Del Method Room Air 02/19/25 07:31 BMI result Body Mass Index 22.2 Objective Data Active Medications Albuterol/Ipratropium (Albuterol/Iprat 2.5/0.5mg 3 Ml Ampul.Neb) 3 ml INHALE Q4H PRN PRN Reason: Shortness of Breath/Wheezing Apixaban (Apixaban 5 Mg Tablet) 5 mg PO BID [facility] Last Admin: 02/19/25 09:45 Dose: 5 mg Documented By: BENOIT Aspirin (Aspirin Enteric Coated 81 Mg Tablet.Dr) 81 mg PO DAILY [facility] Last Admin: 02/19/25 09:45 Dose: 81 mg Documented By: BENOIT Lactated Ringer's (Lr) 1,000 mls @ 50 mls/hr IVCONT .Q20H [facility] Last Admin: 02/19/25 09:45 Dose: 50 mls/hr Documented By: BENOIT Ceftriaxone Sodium 1 gm/ (Sodium Chloride) 50 mls @ 100 mls/hr IV Q24H [facility] Last Infusion: 02/18/25 21:11 Dose: Infused Documented By: LIAM Levetiracetam (Levetiracetam 1,000 Mg Tablet) 1,000 mg PO BID [facility] Last Admin: 02/19/25 09:45 Dose: 1,000 mg Documented By: BENOIT Levothyroxine Sodium (Levothyroxine Sodium 88 Mcg Tablet) 88 mcg PO DAILY@0600 [facility] Last Admin: 02/19/25 05:20 Dose: 88 mcg Documented By: LIAM Lorazepam (Lorazepam 0.5 Mg Tablet) 0.5 mg PO DAILY@1700 [facility] Last Admin: 02/18/25 17:38 Dose: 0.5 mg Documented By: LIZANDRO Metoprolol Succinate (Metoprolol Succinate Er 50 Mg Tab.Er.24h) 50 mg PO DAILY [facility]; Protocol Last Admin: 02/19/25 09:45 Dose: 50 mg Documented By: BENOIT Pravastatin Sodium (Pravastatin Sodium 40 Mg Tablet) 40 mg PO DAILY [facility] Last Admin: 02/19/25 09:45 Dose: 40 mg Documented By: BENOIT Sodium Chloride (0.9 % Sodium Chloride Flush 3 Ml Syringe) 3 ml IVFLUSH QSHIFT [facility] Last Admin: 02/19/25 09:46 Dose: Not Given Documented By: BENOIT Non-Admin Reason: IV Running Labs 02/18/25 08:06 02/18/25 08:06 Microbiology Microbiology Results: Microbiology 02/17/25 17:03 Urine Culture - Preliminary Urine Catheterized - Straight Catheter Culture too young to evaluate. Assessment and Plan (1) Urinary tract infection: Status: Acute (2) Senile purpura: Status: Acute (3) Seizure disorder: Status: Acute Plan 89-YEAR-OLD FEMALE PAST MEDICAL HISTORY OF history, seizure disorder, DVT, first-degree AV block, recurrent UTIs, hypothyroidism, GERD, recent CVA with resultant aphasia, dysarthria; presented to the hospital today with a chief complaint of confusion. Toxic metabolic encephalopathy, likely secondary to Urinary tract infection Urinary tract infection, pending cultures -labs and imaging reviewed -continue w/ ceftriaxone, will adjust based on culture results -continue supportive care and aspiration precautions Senile purpura Will continue ASA and eliquis as benefits outweight risks at this time monitor for any bleeding history of recent nonhemorrhagic embolic CVA seen on MRI on 01/30 -Continue home aspirin, statin for secondary stroke prevention HX seizure: Continue home Keppra HX hypothyroidism: Continue levothyroxine HX DVT: Continue Eliquis Hypertension: Continue home metoprolol DVT prophylaxis: Patient on Eliquis Code status: DNR/DNI Total time managing care of this patient today: 35 minutes. Quality Stroke Does the patient have a stroke diagnosis?: No VTE Prior VTE?: No VTE Risk Level:: Medical - moderate - high VTE Device Contraindication: Treatment Not Indicated VTE Drug Contraindication: N/A - Med Ordered
[2025-02-19 15:17] VITALS: BP 146/74; PULSE 87; RESP 16; TEMP 36.1; O2SAT 94
[2025-02-19] MEDS: 0.9 % Sodium Chloride Flush 3 ML SYRINGE IVFLUSH ×2 (17:19→21:25)
[2025-02-19 19:54] VITALS: BP 136/65; PULSE 79; RESP 18; TEMP 36.2; O2SAT 98
[2025-02-20 03:38] VITALS: BP 162/74; PULSE 78; RESP 18; TEMP 36; O2SAT 100
[2025-02-20 07:37] VITALS: BP 127/57; PULSE 75; RESP 18; TEMP 36.1; O2SAT 99
[2025-02-20] MEDS: Metoprolol Succinate ER 50 MG TAB.ER.24H PO (08:29)
[2025-02-20] MEDS: Aspirin Enteric Coated 81 MG TABLET.DR PO (08:29)
[2025-02-20] MEDS: 0.9 % Sodium Chloride Flush 3 ML SYRINGE IVFLUSH (08:29)
[2025-02-20 11:20] VITALS: BP 127/57; PULSE 75; O2SAT 99
--- NOTE | 2025-02-20 11:56 | MHC.SL.SWA ---
Speech Pathologist Impression:Risk of Aspiration, Oropharyngeal Dysphagia, Aphasia, Cognitive Impairment Risk of Aspiration Due to: Confusion, Scattered Dentition Dysphasia Diet Status: Recommend continue on current diet of Ground Mechanical (NDD2) with thin liquids, pills crushed in puree. Patient requires full assistance/1-1 feeding at all meals. Liquid Consistency and Strategies for Safe Swallow: Liquid Intake Recommendation: Thin Liquid Intake Strategies: Small Sips No Straws Solid Food Consistency: Dietary Recommendations: Grnd/Mech Altered (NDD2) Oral Medication Intake: Crushed with Puree Please contact the pharmacy regarding appropriate crushable or liquid drug formulations that are available whenever modified delivery is recommended. Compensatory Strategies and Precautions to be Taken for Safe Swallow: Sitting Upright (90 deg) Liquids from Cup Small Bites and Sips Alternate Liquids/Solids Supervision While Eating and Drinking for Safe Swallow: Total Assistance (1:1) Foods to Avoid: Difficult to chew solids. Swallowing Recommended Treatments: Compens. Strategy Educat. Recommendation for Speech: Inpatient Speech Therapy Speech Therapy through Rehab Facility Spike Machine Operator Clinican/Clinical Fellow: No Supervisory Statement: I have reviewed and agree with the student/clinical fellow's documentation: N/A Speech Language Pathologist: Savannah Louis M.A., [facility] SEWING MACHINE OPERATOR
--- NOTE | 2025-02-20 13:39 | P.DS_ITS ---
DS: Providers Provider Date of Service: 02/20/25 Date of admission: 02/17/25 19:34 Date of discharge: 02/20/25 Primary care physician: Marie Villanueva MD Consults: 02/17/25 17:49 Consult to Case Management Routine Comment: DS: Diagnosis Discharge Diagnosis (1) Urinary tract infection: Status: Acute (2) Senile purpura: Status: Acute (3) Seizure disorder: Status: Acute DS: Summary Hospital Course Hospital Course: 89-YEAR-OLD FEMALE PAST MEDICAL HISTORY OF history, seizure disorder, DVT, first-degree AV block, recurrent UTIs, hypothyroidism, GERD, recent CVA with resultant aphasia, dysarthria; presented to the hospital today with a chief complaint of confusion. found to have urinary tract infection, with improvement of symptoms after initiating antibiotics. Toxic metabolic encephalopathy, likely secondary to Urinary tract infection, improving Urinary tract infection, w/ urine culture showing contamination -labs and imaging reviewed -will transition from ceftriaxone to PO cefpodoxime based on prior cultures to complete additional 5 days -continue supportive care Senile purpura Will continue ASA and eliquis as benefits outweight risks at this time monitor for any bleeding history of recent nonhemorrhagic embolic CVA seen on MRI on 01/30 Aphasia secondary to above -Continue home aspirin, statin for secondary stroke prevention HX seizure: Continue home Keppra HX hypothyroidism: Continue levothyroxine HX DVT: Continue Eliquis Hypertension: Continue home metoprolol Time Attestation Discharge Coordination Time (in mins): 35 minutes Quality: Safe Use of Opioids Does Pt have an Active Cancer Diagnosis on the Problem List?: No Quality: Stroke Does the patient have a stroke diagnosis?: No Physical Exam Exam: Exam: General: AxOx2, No acute distress Head: AT/NC ENT: Moist mucous membranes Neck: supple CVS; RRR, S1 S2 normal Lungs: Clear bilateral breath sounds, no wheezes or crackles Abd: Soft non tender, non distended Ext: No edema and no calf tenderness MSK: moving all 4 limbs Skin: No cyanosis or edema Psych: Cooperative with exam Neurology: aphasia and dysarthria Vital Signs: Vital Signs: Last Vital Signs Temp 96.9 F 02/20/25 07:37 Pulse 75 02/20/25 11:20 Resp 18 02/20/25 07:37 BP 127/57 L 02/20/25 11:20 Pulse Ox 99 02/20/25 11:20 O2 Del Method Room Air 02/20/25 07:37 BMI result Body Mass Index 22.2 Discharge Plan Discharge Anticipated Discharge Date/Time: 02/20/25 15:30 Patient Disposition: Xfer SNF Discharge Diagnosis: Encephalopathy UTI Stroke Referrals: [facility] [Outside] - 1 Week Po,Marie Renner MD [Primary Care Provider, Internal Medicine] - 1 Week Discharge Medications: New cefuroxime axetil 250 mg tablet 250 mg PO BID 5 Days Qty: 10 0RF Continued (DME) low height rollator See Rx Instructions .Route .MEDSUPPLY Qty: 1 0RF Rx Instructions: As directed magnesium oxide 400 mg magnesium capsule 400 mg PO DAILY Qty: 90 1RF levothyroxine 88 mcg tablet 88 mcg PO DAILY@0600 90 Days Qty: 90 1RF lorazepam 1 mg tablet 0.5 mg PO DAILY@1700 Qty: 45 0RF levetiracetam 1,000 mg tablet 1,000 mg PO BID Qty: 180 0RF omeprazole 20 mg capsule,delayed release(DR/EC) 20 mg PO BID@0630,1630 loratadine 10 mg tablet 10 mg PO DAILY PRN (Reason: Allergy Symptoms) Eliquis 5 mg Tablet 5 mg PO BID 30 Days Qty: 60 3RF amlodipine 10 mg Tablet 10 mg PO DAILY 30 Days Qty: 30 3RF Protocol: Hold for SBP< HOLD for SBP < : 90 pravastatin 40 mg Tablet 40 mg PO DAILY 30 Days Qty: 30 3RF aspirin 81 mg Tablet,Delayed Release (Dr/Ec) 81 mg PO DAILY Qty: 30 0RF acetaminophen 500 mg Tablet 1,000 mg PO DAILY PRN (Reason: Pain) metoprolol succinate 50 mg tablet extended release 24 hr 50 mg PO DAILY Qty: 90 3RF Discharge Orders: Discharge Order (Routine); Ordered 02/20/25 Ordered By: Billy Mayes Activity on Discharge: As tolerated Stand Alone Forms: Patient Portal Discharge page Print Language: Mohawk Care Plan Goals: continue with physical therapy and occupational therapy continue with cefuroxime 250mg BID to complete an extra 5 days Health Concerns: encephalopathy likely from infection and with recent stroke, may worsen symptoms Urinary tract infection, continue with medications for an extra 5 days Stroke continue with aspirin, eliquis and statin Plan of Treatment: continue antibiotics physical therapy and occupational therapy at [facility] Assessment: 89-YEAR-OLD FEMALE PAST MEDICAL HISTORY OF history, seizure disorder, DVT, first-degree AV block, recurrent UTIs, hypothyroidism, GERD, recent CVA with resultant aphasia, dysarthria; presented to the hospital today with a chief complaint of confusion. Patient Instructions: Global Aphasia Exercises (DC), Stroke (DC), Encephalopathy (DC)
--- NOTE | 2025-02-20 14:26 | MHC.CM.PN ---
IMM 02/18/25 Patient has been accepted for STR at [facility]. Her family has accepted the bed offer. 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
[2025-02-20 15:09] VITALS: BP 121/60; PULSE 80; RESP 16; TEMP 36.1; O2SAT 98
[2025-02-20 16:46] VITALS: BP 155/69; PULSE 84; RESP 20; TEMP 36.6; O2SAT 97
== END 2025-02-20 17:00 | disposition skilled nursing facility (03) | DRG 689 ==
LOC: HO.ED 13:19 → HO.EDOVER 19:42 → HO.S3 02-18 01:31
PROVIDERS: Physician Assistant Medical; Admitting Provider Hospitalist; Emergency Provider Emergency Medicine; PCP Internal Medicine; Visit Provider Student in an Organized Health Care Education/Training Program
DX: N39.0 Urinary tract infection, site not specified (principal); G92.8 Other toxic encephalopathy; G40.909 Epilepsy, unspecified, not intractable, without status epilepticus; F03.90 Unspecified dementia, unspecified severity, without behavioral disturbance, psychotic disturbance, mood disturbance, and anxiety; I10 Essential (primary) hypertension; D69.2 Other nonthrombocytopenic purpura; Z66 Do not resuscitate; Z20.822 Contact with and (suspected) exposure to COVID-19; I69.322 Dysarthria following cerebral infarction; I69.320 Aphasia following cerebral infarction; Z86.718 Personal history of other venous thrombosis and embolism; Z87.440 Personal history of urinary (tract) infections; Z79.01 Long term (current) use of anticoagulants; Z79.890 Hormone replacement therapy; Z79.899 Other long term (current) drug therapy
CPT/HCPCS: 36415; 70450; 71045; 80048; 80076; 81001; 83735; 84484; 85025; 87086; 87637; 92526; 92610; 93005; 97116; 97162; 99285; J0696; J7120

== ENCOUNTER → 2025-02-17 12:59 | Outpatient (BNV) | payer MEDICARE, SELFPAY | PROVIDERS: Emergency Provider Emergency Medicine; PCP Internal Medicine; Visit Provider Radiology Diagnostic Radiology | DX: R41.82 Altered mental status, unspecified (principal) | CPT/HCPCS: 70450; 71045 ==

== ENCOUNTER → 2025-02-17 13:00 | Outpatient (BNV) | payer MEDICARE, SELFPAY | PROVIDERS: Emergency Provider Emergency Medicine; PCP Internal Medicine; Visit Provider Internal Medicine | DX: I44.0 Atrioventricular block, first degree (principal); I45.10 Unspecified right bundle-branch block | CPT/HCPCS: 93010 ==

== ENCOUNTER → 2025-02-17 19:34 | Outpatient (BNV) | payer MEDICARE, SELFPAY | PROVIDERS: Admitting Provider Hospitalist; Emergency Provider Emergency Medicine; PCP Internal Medicine; Visit Provider Student in an Organized Health Care Education/Training Program | DX: G92.8 Other toxic encephalopathy (principal); N39.0 Urinary tract infection, site not specified; G40.909 Epilepsy, unspecified, not intractable, without status epilepticus; D69.2 Other nonthrombocytopenic purpura | CPT/HCPCS: 99223; 99232 ==

== ENCOUNTER 2025-03-13 08:49 | Outpatient (AMB) | payer MEDICARE, SELFPAY ==
[2025-03-13 08:52] VITALS: BP 102/62; PULSE 70; O2SAT 96; BMI 23.4
--- NOTE | 2025-03-13 08:52 | MHC.PC.OV ---
Vital Signs 03/13/25 08:52 Height 5 ft Weight 119 lb 11.376 oz BMI 23.4 BP 102/62 Blood Pressure Location Lt brachial Position Sitting Pulse 70 Pulse Source Pulse Oximeter Pulse Oximetry (%) 96 Oxygen Delivery Method Room Air Intake Visit Reasons: [facility] 03/06 Allergies hydrochlorothiazide Allergy (Unknown, Verified 03/13/25 08:53) Electrolyte abnormality oxycodone (OXYCODONE) Allergy (Unknown, Verified 03/13/25 08:53) VOMITTING,CONFUSION amlodipine Adverse Reaction (Intermediate, Verified 03/13/25 08:53) leg swelling lisinopril Adverse Reaction (Intermediate, Verified 03/13/25 08:53) cough losartan Adverse Reaction (Intermediate, Verified 03/13/25 08:53) hyponatremia Medication List - Last Reconciled 03/13/25 by Nimo Pearson NP [low height rollator As directed] acetaminophen 1,000 mg PO DAILY PRN amlodipine 10 mg See Protocol PO DAILY 30 days apixaban (Eliquis) 5 mg PO BID 30 days aspirin 81 mg PO DAILY levetiracetam 1,000 mg PO BID levothyroxine 88 mcg PO DAILY@0600 90 days loratadine 10 mg PO DAILY PRN lorazepam 0.5 mg (1/2 x 1 mg) PO DAILY@1700 magnesium oxide 400 mg PO DAILY metoprolol succinate ER 50 mg PO DAILY omeprazole 20 mg PO BID@0630,1630 pravastatin 40 mg PO DAILY 30 days Tobacco use date assessed: 05/05/24 Fall risk assessment: No Falls in past year Last assessed Fall Risk: 03/13/25 Dental Screening Dental Screen Date: 05/05/24 HPI HPI Comments History of Present Illness Details 89 y/o female presents today for HDF. PMH significant for seizure disorder, DVT, first-degree AV block, recurrent UTIs, hypothyroidism, GERD, and recent CVA with residual aphasia and dysarthria. She was admitted at [facility]17[facility]02/[facility] for evaluation and treatment of a urinary tract infection, with improvement after initiation of antibiotics. Following hospital discharge, she was transferred to [facility] from 02/22?03/06 for PT/OT rehabilitation. No additional subjective complaints reported today due to expressive limitations from aphasia. 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 Facial droop Cerebral infarction Left leg DVT Upper respiratory infection COVID-19 virus infection Burning with urination Buttock pain Status post fall Dog bite of right arm Adult general medical exam Screening for diabetes mellitus Impacted cerumen of both ears Facial lesion Overweight (BMI 25.0-29.9) Hip osteoarthritis T12 vertebral fracture Reactive airways dysfunction syndrome Pneumonia Cholelithiasis CVA (cerebral vascular accident) Obesity (BMI 30-39.9) Hypercholesterolemia Vitamin D deficiency Hypothyroid Seizure disorder Anxiety Gout GERD (gastroesophageal reflux disease) Psoriatic arthritis Hypertension Surgical History History of Mohs surgery for squamous cell carcinoma of skin History of cataract surgery History of colonoscopy History of knee replacement procedure of right knee History of left knee replacement Family History Father No problems noted. Mother Acute CVA (cerebrovascular accident) Diabetes Brother Cancer Daughter History of nephrectomy Son Heart disease Social History Household Members: Family Household Members Other:: daughter Housing: House Do you presently have visiting nurse or other home services: No (goes to adult daycare) Alcohol intake: never Patient Tobacco Use Status: Never used Tobacco Tobacco use type: Cigarette e-Cigarette/Vaping Use: Never Used Second Hand Smoke Exposure: No Advance Directives Date on File: 12/04/23 service: No Current occupational status: retired Cognitive needs: No Hearing needs: Yes (hearing aides) Vision needs: No Questionnaire Thrive Questionnaire Date Thrive assessed: 08/06/24 I am a: Parent/Caregiver What is your living situation today?: I have a steady place to live Within the past 12 months, did the food you bought not last and you didn't have the money to get more?: I choose not to answer this question Within the past 12 months, did you worry whether your food would run out before you got money to buy more?: I choose not to answer this question Do you have trouble paying for medicines?: I choose not to answer this question Do you have trouble getting transportation to medical appointments?: I choose not to answer this question Do you have trouble paying your heating and electricity bill?: I choose not to answer this question Do you have trouble taking care of your child, family member or friend?: I choose not to answer this question Do you have trouble with day-to-day activities such as bathing, preparing meals, shopping, managing finances, etc.?: I choose not to answer this question Are you currently unemployed and looking for a job?: I choose not to answer this question Are you interested in more education?: I choose not to answer this question Please select the resources that you would like help with: None Currently or been in a relationship where the following occur: No concerns reported THRIVE Score: 0 HAZEL-7 AMB Questionnaire HAZEL-7 Date HAZEL - 7 assessed: 05/05/24 Source: Developed by Drs. Satish Summers, Radha Honeycutt, Tani Gonzales and colleagues, with an educational milton from [employer]. Review of Systems Const All systems reviewed & are unremarkable except as noted in HPI and below Physical exam (Primary Care) Vital Signs: Last Vital Signs Pulse 70 03/13/25 08:52 BP 102/62 03/13/25 08:52 Pulse Ox 96 03/13/25 08:52 Oxygen Delivery Method Room Air 03/13/25 08:52 BMI result Body Mass Index 23.4 Tobacco/Smoking Status: Tobacco use Status Tobacco use date assessed 05/05/24 03/13/25 08:59 Patient Tobacco Use Status Never used Tobacco 03/13/25 08:59 Tobacco use type Cigarette 03/13/25 08:59 e-Cigarette/Vaping Use Never Used 03/13/25 08:59 Thrive Assessment: Date of Thrive Assessment Date Thrive assessed 08/06/24 03/13/25 08:59 Currently or been in a relationship where the following occur: No concerns reported Const General: no acute distress and awake Nutritional Appearance: well nourished Limitations: wheelchair Resp Effort & Inspection: normal respiratory effort Auscultation: clear to auscultation bilaterally Cardio Heart sounds: S1 normal heart sound present and S2 normal heart sound present Neuro Other: Baseline Aphasia/dysarthria present. No new focal deficits appreciated. Coding Level of Care Code Est Pt Level 4 (84624) Diagnoses Acute cystitis without hematuria N30.00 Urinary tract infection type: acute cystitis Hematuria presence: without hematuria Time Spent (min) 25 Assessment & Plan Assessment & Plan (1) Urinary tract infection: Code(s): N39.0 - Urinary tract infection, site not specified Category: Medical Qualifiers: Urinary tract infection type: acute cystitis Hematuria presence: without hematuria Qualified Code(s): N30.00 - Acute cystitis without hematuria Plan: Resolved. Continue monitoring for recurrent UTI symptoms; reinforce hydration and incontinence care as appropriate. Maintain current seizure disorder management and medications. Continue chronic disease management F/U with PCP as scheduled.
== END 2025-03-13 09:34 | disposition home or self-care (01) ==
LOC: HO.HMCH 08:50
PROVIDERS: PCP Internal Medicine; Visit Provider Nurse Practitioner Family
DX: N30.00 Acute cystitis without hematuria (principal)

== ENCOUNTER → 2025-03-13 08:49 | Outpatient (BNVA) | payer MEDICARE, SELFPAY | PROVIDERS: PCP Internal Medicine; Visit Provider Nurse Practitioner Family | DX: N30.00 Acute cystitis without hematuria (principal) | CPT/HCPCS: 99212 ==

== ENCOUNTER 2025-03-27 09:41 | Outpatient (AMB) | payer MEDICARE, SELFPAY ==
--- OUTSIDE RECORDS SUMMARY | 2025-03-27 09:44 | XMS_ITS | Patient Health Record ---
Author Organization [facility] Address [address] [place] [address] Care Team Providers Care Cylinder Checker Name Role Phone Po Marie STACK Primary Care Provider Satish Villagran [phone] Reason For Referral No Information Problems Problem Type SNOMED Code ICD Code Onset Dates Problem Status W/U Status Risk Notes Problem Dysphagia (78581666) Dysphagia (R13.10) Active confirmed Plan Of Treatment No Information Insurance Providers Payer Name Payer Address Payer Phone Subscriber Number Group Number Insured Name Patient Relationship to Insured Coverage Start Date Coverage End Date MEDICARE OF [place] [address] [place] [address] [phone] [id number] JANETH WELDON Self - patient is the insured [employer] ATT[employer] CLAIMS [address] [place] [phone] [id number] JANETH WELDON Self - patient is the insured
--- OUTSIDE RECORDS SUMMARY | 2025-03-27 09:44 | XMS_ITS | Encounter Summary ---
Author Organization [employer] Address [address] [place] [address] Care Team Providers Care Mason Apprentice Name Role Phone Atul Fuentes MD Primary Care Provider [phone] Encounter Details Date Type Department Care Team (Latest Contact Info) Description 03/04/2025 Lab Requisition [facility] - Main Lab [address] [place] [address] Atul Fuentes MD [address] [place], [place] [id number] Urinary tract infection, site not specified; Atrioventricular block, first degree; Other nonthrombocytopenic purpura (CMS/HCC V24); Other toxic encephalopathy; Aphasia following cerebral infarction; Chronic embolism and thrombosis of unspecified vein; Epilepsy, unspecified, not intractable, without status epilepticus (CMS/HCC V24, CMS/HCC V28); Hypothyroidism, unspecified Social History Tobacco Use Types Packs/Day Years Used Date Smoking Tobacco: Never Assessed Comments Unknown Sex and Gender Information Value Date Recorded Sex Assigned at Not on file Legal Sex Female 11:47 PM EST Gender Identity Not on file Sexual Orientation Not on file documented as of this encounter Plan of Treatment Not on file documented as of this encounter Procedures Procedure Name Priority Date/Time Associated Diagnosis Comments LIPID PANEL WITH REFLEX TO DIRECT LDL Routine 03/04/2025 7:47 AM EST Urinary tract infection, site not specified Atrioventricular block, 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 Epilepsy, unspecified, not intractable, without status epilepticus (CMS/HCC V24, CMS/HCC V28) Hypothyroidism, unspecified CBC WITH AUTO DIFFERENTIAL Routine 03/04/2025 7:47 AM EST Urinary tract infection, site not specified Atrioventricular block, 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 Epilepsy, unspecified, not intractable, without status epilepticus (CMS/HCC V24, CMS/HCC V28) Hypothyroidism, unspecified CBC AND DIFFERENTIAL Routine 03/04/2025 7:47 AM EST Urinary tract infection, site not specified Atrioventricular block, 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 Epilepsy, unspecified, not intractable, without status epilepticus (CMS/HCC V24, CMS/HCC V28) Hypothyroidism, unspecified THYROID STIMULATING HORMONE Routine 03/04/2025 7:47 AM EST Urinary tract infection, site not specified Atrioventricular block, 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 Epilepsy, unspecified, not intractable, without status epilepticus (CMS/HCC V24, CMS/HCC V28) Hypothyroidism, unspecified COMPREHENSIVE METABOLIC PANEL Routine 03/04/2025 7:47 AM EST Urinary tract infection, site not specified Atrioventricular block, 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 Epilepsy, unspecified, not intractable, without status epilepticus (CMS/HCC V24, CMS/HCC V28) Hypothyroidism, unspecified documented in this encounter Results * (ABNORMAL) CBC auto differential (03/04/2025 7:47 AM EST) WBC 7.8 4.8 - 10.8 K/mcL LAB HEMETOLOGY METHOD 03/04/2025 12:24 PM EST [facility] RBC 4.20 3.80 - 4.80 M/mcL LAB HEMETOLOGY METHOD 03/04/2025 12:24 PM EST [facility] Hemoglobin 12.9 11.5 - 16.0 g/dL LAB HEMETOLOGY METHOD 03/04/2025 12:24 PM [facility] Hematocrit 38.4 35.0 - 47.0 % LAB HEMETOLOGY METHOD 03/04/2025 12:24 PM [facility] MCV 90.8 79.0 - 98.0 FL LAB HEMETOLOGY METHOD 03/04/2025 12:24 PM [facility] MCH 30.5 27.0 - 32.0 pcg LAB HEMETOLOGY METHOD 03/04/2025 12:24 PM [facility] MCHC 33.6 32.0 - 37.0 g/dL LAB HEMETOLOGY METHOD 03/04/2025 12:24 PM [facility] RDW 13.3 11.0 - 15.0 % LAB HEMETOLOGY METHOD 03/04/2025 12:24 PM [facility] Platelets 299 130 - 400 K/mcL LAB HEMETOLOGY METHOD 03/04/2025 12:24 PM [facility] MPV 10.6 7.0 - 11.0 FL LAB HEMETOLOGY METHOD 03/04/2025 12:24 PM [facility] NRBC 0.0 <1.0 % LAB HEMETOLOGY METHOD 03/04/2025 12:24 PM [facility] NRBC Absolute 0.00 <0.10 K/mcL LAB HEMETOLOGY METHOD 03/04/2025 12:24 PM [facility] Neutrophils Relative 81.1 % LAB HEMETOLOGY METHOD 03/04/2025 12:24 PM [facility] Lymphocytes Relative 9.4 % LAB HEMETOLOGY METHOD 03/04/2025 12:24 PM [facility] Monocytes Relative 6.0 % LAB HEMETOLOGY METHOD 03/04/2025 12:24 PM [facility] Eosinophils Relative 2.4 % LAB HEMETOLOGY METHOD 03/04/2025 12:24 PM EST [facility] Basophils Relative 0.8 % LAB HEMETOLOGY METHOD 03/04/2025 12:24 PM [facility] Immature Granulocytes Relative 0.3 % LAB HEMETOLOGY METHOD 03/04/2025 12:24 PM [facility] Neutrophils Absolute 6.31 1.50 - 7.00 K/mcL LAB HEMETOLOGY METHOD 03/04/2025 12:24 PM [facility] Lymphocytes Absolute 0.73(L) 1.00 - 5.00 K/mcL LAB HEMETOLOGY METHOD 03/04/2025 12:24 PM [facility] Monocytes Absolute 0.47 0.20 - 1.00 K/mcL LAB HEMETOLOGY METHOD 03/04/2025 12:24 PM [facility] Eosinophils Absolute 0.19 0.00 - 0.50 K/mcL LAB HEMETOLOGY METHOD 03/04/2025 12:24 PM EST [facility] Basophils Absolute 0.06 0.00 - 0.20 K/mcL LAB HEMETOLOGY METHOD 03/04/2025 12:24 PM [facility] Immature Granulocytes Absolute 0.02 0.00 - 0.03 K/mcL LAB HEMETOLOGY METHOD 03/04/2025 12:24 PM [facility] Blood Venous blood specimen / Unknown Venipuncture / Unknown 03/04/2025 7:47 AM EST 03/04/2025 11:27 AM EST us Atul Fuentes MD LAB BLOOD ORDERABLES Final Resul t [facility] [address] [place] [address], * (ABNORMAL) Thyroid stimulating hormone (03/04/2025 7:47 AM EST) TSH 8.71(H) 0.40 - 4.00 mcIU/mL 03/04/2025 3:12 PM [facility] Blood Venous blood specimen / Unknown Venipuncture / Unknown 03/04/2025 7:47 AM EST 03/04/2025 11:27 AM EST Atul Fuentes MD LAB BLOOD ORDERABLES Final Resul t [facility] [address] [place] [address], * Lipid panel with reflex to direct LDL (03/04/2025 7:47 AM EST) Cholesterol 139 0 - 200 mg/dL 03/04/2025 12:52 PM [facility] Triglycerides 102 0 - 150 mg/dL 03/04/2025 12:52 PM [facility] HDL 52 >=40 mg/dL 03/04/2025 12:52 PM [facility] LDL Calculated 67 0 - 100 mg/dL 03/04/2025 12:52 PM [facility] Comment:Estimated LDL Calcul ated using equation: Total cholesterol - HDL cholesterol - (Triglycerides/5) VLDL Cholesterol Fady 20.4 mg/dL 03/04/2025 12:52 PM [facility] Non HDL Chol. (LDL+VLDL) 87 <145 mg/dL 03/04/2025 12:52 PM [facility] Chol/HDL Ratio 2.7 0.0 - 4.4 03/04/2025 12:52 PM [facility] Blood Venous blood specimen / Unknown Venipuncture / Unknown 03/04/2025 7:47 AM EST 03/04/2025 11:27 AM EST us Atul Fuentes MD LAB BLOOD ORDERABLES Final Resul t [facility] [address] [place] [address], * (ABNORMAL) Comprehensive metabolic panel (03/04/2025 7:47 AM EST) Sodium 137 133 - 145 mmol/L 03/04/2025 12:52 PM [facility] Potassium 4.4 3.5 - 5.5 mmol/L 03/04/2025 12:52 PM [facility] Chloride 97 96 - 110 mmol/L 03/04/2025 12:52 PM [facility] CO2 26 21 - 32 mmol/L 03/04/2025 12:52 PM [facility] Anion Gap 14(H) 3 - 11 03/04/2025 12:52 PM [facility] Glucose 89 70 - 100 mg/dL 03/04/2025 12:52 PM [facility] BUN 8 5 - 25 mg/dL 03/04/2025 12:52 PM [facility] Creatinine 0.73 0.50 - 1.10 mg/dL 03/04/2025 12:52 PM [facility] eGFR 79 >=60 mL/min/1. 73m2 03/04/2025 12:52 PM [facility] Comment:Calculation based on the Chronic Kidney Disease Epidemiology Collaboration (CKD-EPI) equation refit without adjustment for race. BUN/Creatinine Ratio 11.0 03/04/2025 12:52 PM [facility] Calcium 9.4 8.5 - 10.5 mg/dL 03/04/2025 12:52 PM [facility] AST (SGOT) 21 10 - 42 unit/L 03/04/2025 12:52 PM [facility] ALT (SGPT) 60 10 - 60 unit/L 03/04/2025 12:52 PM [facility] Alkaline Phosphatase 132(H) 42 - 121 unit/L 03/04/2025 12:52 PM [facility] Total Protein 6.8 6.0 - 8.0 g/dL 03/04/2025 12:52 PM [facility] Albumin 4.1 3.2 - 5.0 g/dL 03/04/2025 12:52 PM [facility] Total Bilirubin 0.4 0.0 - 1.4 mg/dL 03/04/2025 12:52 PM [facility] Blood Venous blood specimen / Unknown Venipuncture / Unknown 03/04/2025 7:47 AM EST 03/04/2025 11:27 AM EST Atul Fuentes MD LAB BLOOD ORDERABLES Final Resul t [facility] [address] [place] [address], documented in this encounter Visit Diagnoses Diagnosis Urinary tract infection, site not specified Atrioventricular block, first degree First degree atrioventricular block 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
--- OUTSIDE RECORDS SUMMARY | 2025-03-27 09:44 | XMS_ITS | Clinical Summary ---
Author Organization [address] [facility] Address [address] [place] [address] Phone Care Team Providers Care Corrugator Name Role Phone Atul Fuentes MD Primary Care Provider [phone] Encounters Date Type Department Care Team Description 03/04/2025 Lab Requisition [facility] - Main Lab [address] [facility] [place] [address] Atul Fuentes MD Urinary tract infection, site not specified; Atrioventricular block, first degree; Other nonthrombocytopenic purpura (CMS/HCC V24); Other toxic encephalopathy; Aphasia following cerebral infarction; Chronic embolism and thrombosis of unspecified vein; Epilepsy, unspecified, not intractable, without status epilepticus (CMS/HCC V24, CMS/HCC V28); Hypothyroidism, unspecified from Last 3 Months Social History Tobacco Use Types Packs/Day Years Used Date Smoking Tobacco: Never Assessed Comments Unknown Sex and Gender Information Value Date Recorded Sex Assigned at Not on file Legal Sex Female 11:47 PM EST Gender Identity Not on file Sexual Orientation Not on file Plan of Treatment Health Maintenance Due Date Last Done Comments DTaP,Tdap,and Td Vaccines (1 - Tdap) [birth year]19/1954 Pneumococcal Vaccine: 50+ Ye ars (1 of 1 - PCV) 1986 Zoster Vaccines (1 of 2) 1986 RSV Immunization Adult Patie nts (1 - 1-dose 75+ series) 12/19/2011 Depression Screening 04/02/2024 COVID-19 Vaccine (1 - 2024-2 6 season) 2024 Influenza Vaccine (#1) 2024 Falls Risk Assessment 03/04/2025 Medicare Annual Wellness Visit 03/04/2025 Osteoporosis Screening (Bone Density Screening) 03/04/2025 Social Influencers of Health Screening 03/04/2025 Cholesterol Screening (Lipid Panel) 03/04/2030 03/04/2025 HIB Vaccines Aged Out No longer eligi ble based on patient's age to complete this topic HPV Vaccines Aged Out No longer eligi ble based on patient's age to complete this topic Hepatitis A Vaccines Aged Out No long er eligible based on patient's age to complete this topic Hepatitis B Vaccines Aged Out No long er eligible based on patient's age to complete this topic IPV Vaccines Aged Out No longer eligi ble based on patient's age to complete this topic MMR Vaccines Aged Out No longer eligi ble based on patient's age to complete this topic Meningococcal ACWY Vaccine Aged Out N o longer eligible based on patient's age to complete this topic Meningococcal B Vaccine Aged Out No l onger eligible based on patient's age to complete this topic RSV Immunization Patients Un brenda 20 months Aged Out No longer eligible b ased on patient's age to complete this topic Varicella Vaccines Aged Out No longer eligible based on patient's age to complete this topic Procedures Procedure Name Priority Date/Time Associated Diagnosis Comments CBC WITH AUTO DIFFERENTIAL Routine 03/04/2025 7:47 [...] epilepticus (CMS/HCC V24, CMS/HCC V28) Hypothyroidism, unspecified LIPID PANEL WITH REFLEX TO DIRECT LDL [...] epilepticus (CMS/HCC V24, CMS/HCC V28) Hypothyroidism, unspecified from Last 3 Months Results * Lipid panel with reflex to direct LDL (03/04/2025 7:47 AM EST) Cholesterol 139 0 - 200 mg/dL 03/04/2025 12:52 PM [facility] Triglycerides 102 0 - 150 mg/dL 03/04/2025 12:52 PM [facility] HDL 52 >=40 mg/dL 03/04/2025 12:52 PM [facility] LDL Calculated 67 0 - 100 mg/dL 03/04/2025 12:52 PM [facility] Comment:Estimated LDL Calcul ated using equation: Total cholesterol - HDL cholesterol - (Triglycerides/5) VLDL Cholesterol Fady 20.4 mg/dL 03/04/2025 12:52 PM [facility] Non HDL Chol. (LDL+VLDL) 87 <145 mg/dL 03/04/2025 12:52 PM [facility] Chol/HDL Ratio 2.7 0.0 - 4.4 03/04/2025 12:52 PM [facility] Blood Venous blood specimen / Unknown Venipuncture / Unknown 03/04/2025 7:47 AM EST 03/04/2025 11:27 AM EST Atul Fuentes MD LAB BLOOD ORDERABLES Final Resul t [facility] [address] [place] [address], * (ABNORMAL) CBC auto differential (03/04/2025 7:47 AM EST) WBC 7.8 4.8 - 10.8 K/mcL LAB HEMETOLOGY METHOD 03/04/2025 12:24 PM [facility] RBC 4.20 3.80 - 4.80 M/mcL LAB HEMETOLOGY METHOD 03/04/2025 12:24 PM [facility] Hemoglobin 12.9 11.5 - 16.0 g/dL LAB HEMETOLOGY METHOD 03/04/2025 12:24 PM [facility] Hematocrit 38.4 35.0 - 47.0 % LAB HEMETOLOGY METHOD 03/04/2025 12:24 PM [facility] MCV 90.8 79.0 - 98.0 FL LAB HEMETOLOGY METHOD 03/04/2025 12:24 PM [facility] MCH 30.5 27.0 - 32.0 pcg LAB HEMETOLOGY METHOD 03/04/2025 12:24 PM [facility] MCHC 33.6 32.0 - 37.0 g/dL LAB HEMETOLOGY METHOD 03/04/2025 12:24 PM [facility] RDW 13.3 11.0 - 15.0 % LAB HEMETOLOGY METHOD 03/04/2025 12:24 PM [facility] Platelets 299 130 - 400 K/mcL LAB HEMETOLOGY METHOD 03/04/2025 12:24 PM [facility] MPV 10.6 7.0 - 11.0 FL LAB HEMETOLOGY METHOD 03/04/2025 12:24 PM [facility] NRBC 0.0 <1.0 % LAB HEMETOLOGY METHOD 03/04/2025 12:24 PM [facility] NRBC Absolute 0.00 <0.10 K/mcL LAB HEMETOLOGY METHOD 03/04/2025 12:24 PM [facility] Neutrophils Relative 81.1 % LAB HEMETOLOGY METHOD 03/04/2025 12:24 PM [facility] Lymphocytes Relative 9.4 % LAB HEMETOLOGY METHOD 03/04/2025 12:24 PM [facility] Monocytes Relative 6.0 % LAB HEMETOLOGY METHOD 03/04/2025 12:24 PM [facility] Eosinophils Relative 2.4 % LAB HEMETOLOGY METHOD 03/04/2025 12:24 PM [facility] Basophils Relative 0.8 % LAB HEMETOLOGY METHOD 03/04/2025 12:24 PM [facility] Immature Granulocytes Relative 0.3 % LAB HEMETOLOGY METHOD 03/04/2025 12:24 PM [facility] Neutrophils Absolute 6.31 1.50 - 7.00 K/mcL LAB HEMETOLOGY METHOD 03/04/2025 12:24 PM [facility] Lymphocytes Absolute 0.73(L) 1.00 - 5.00 K/mcL LAB HEMETOLOGY METHOD 03/04/2025 12:24 PM [facility] Monocytes Absolute 0.47 0.20 - 1.00 K/mcL LAB HEMETOLOGY METHOD 03/04/2025 12:24 PM [facility] Eosinophils Absolute 0.19 0.00 - 0.50 K/mcL LAB HEMETOLOGY METHOD 03/04/2025 12:[address] [facility] Basophils Absolute 0.06 0.00 - 0.20 K/[facility] LAB HEMETOLOGY METHOD 03/04/2025 12:[address] [facility] Immature Granulocytes Absolute 0.02 0.00 - 0.03 K/[facility] LAB HEMETOLOGY METHOD 03/04/2025 12:[address] [facility] Blood Venous blood specimen / Unknown Venipuncture / Unknown 03/04/2025 7:47 AM EST 03/04/2025 11:27 AM EST us Atul Fuentes MD LAB BLOOD ORDERABLES Final Resul t Performing Organization Address City/[facility]/ZIP Co de Phone Number [facility] [address] [place] [address], [place] [phone] * (ABNORMAL) Thyroid stimulating hormone (03/04/2025 7:47 AM EST) TSH 8.71(H) 0.40 - 4.00 mcIU/mL 03/04/2025 3:[address] [facility] Blood Venous blood specimen / Unknown Venipuncture / Unknown 03/04/2025 7:47 AM EST 03/04/2025 11:27 AM EST us Atul Fuentes MD LAB BLOOD ORDERABLES Final Resul t [facility] [address] [place] [address], [place] [phone] * (ABNORMAL) Comprehensive metabolic panel (03/04/2025 7:47 AM EST) Sodium 137 133 - 145 mmol/L 03/04/2025 12:[address] [facility] Potassium 4.4 3.5 - 5.5 mmol/L 03/04/2025 12:52 PM [facility] Chloride 97 96 - 110 mmol/L 03/04/2025 12:52 PM [facility] CO2 26 21 - 32 mmol/L 03/04/2025 12:52 PM [facility] Anion Gap 14(H) 3 - 11 03/04/2025 12:52 PM [facility] Glucose 89 70 - 100 mg/dL 03/04/2025 12:52 PM [facility] BUN 8 5 - 25 mg/dL 03/04/2025 12:52 PM [facility] Creatinine 0.73 0.50 - 1.10 mg/dL 03/04/2025 12:52 PM [facility] eGFR 79 >=60 mL/min/1. 73m2 03/04/2025 12:52 PM [facility] Comment:Calculation based on the Chronic Kidney Disease Epidemiology Collaboration (CKD-EPI) equation refit without adjustment for race. BUN/Creatinine Ratio 11.0 03/04/2025 12:52 PM [facility] Calcium 9.4 8.5 - 10.5 mg/dL 03/04/2025 12:52 PM [facility] AST (SGOT) 21 10 - 42 unit/L 03/04/2025 12:52 PM [facility] ALT (SGPT) 60 10 - 60 unit/L 03/04/2025 12:52 PM [facility] Alkaline Phosphatase 132(H) 42 - 121 unit/L 03/04/2025 12:52 PM [facility] Total Protein 6.8 6.0 - 8.0 g/dL 03/04/2025 12:52 PM [facility] Albumin 4.1 3.2 - 5.0 g/dL 03/04/2025 12:52 PM [facility] Total Bilirubin 0.4 0.0 - 1.4 mg/dL 03/04/2025 12:[address] [facility] Blood Venous blood specimen / Unknown Venipuncture / Unknown 03/04/2025 7:47 AM EST 03/04/2025 11:27 AM EST Atul Fuentes MD LAB BLOOD ORDERABLES Final Resul t [facility] [address] [place] [address], [place] [phone] from Last 3 Months Insurance MEDICARE [facility] Care Teams Corrugator Relationship Specialty Start Date End Date Atul Fuentes MD [address] [place] [address] [address] [place] [address] PCP - General Geriatric Medicine 03/04/25
--- OUTSIDE RECORDS SUMMARY | 2025-03-27 09:44 | XMS_ITS | Clinical Summary ---
Author Organization [facility] Facility Address [address] [address] Care Team Providers Care Cell Preparer Name Role Phone Marie Villanueva MD Primary Care Provider [phone] Social History Tobacco Use Types Packs/Day Years [...] age to complete this topic Insurance Medicare [facility] Medicare [facility] Care Teams Cell Preparer Relationship Specialty Start Date End Date Marie Villanueva MD [facility] [address] [place], [place] PCP - General 04/12/20
--- OUTSIDE RECORDS SUMMARY | 2025-03-27 09:44 | XMS_ITS | Clinical Summary ---
Author Organization [facility] Address [address] [place] [address] Phone Care Team Providers Care Refinery Operator Helper Cracking Unit Name Role Phone Tod Goncalves MD Primary [...] Payer (Ef fective 2001-Present) Name:Janeth Dorado Member ID:[id number] Relation to Subscriber:Self Name:Janeth Dorado Subscriber ID:[id number] Payer ID:[id number] Group ID:Not on file Type:Medicare Address: [place] [address] [employer] MEDEX SUPPLEMENT MEDICARE PART A & B [employer] MED[employer] SUPPLEMENT MEDICARE PART A & B [employer] MEDEX SUPPLEMENT MEDICARE PART A & B [employer] MEDEX SUPPLEMENT MEDICARE PART A & B [employer] MED[employer] SUPPLEMENT MEDICARE PART A & B [employer] MED[employer] SUPPLEMENT MEDICARE PART A & B [employer] MEDEX SUPPLEMENT MEDICARE PART A & B [employer] MEDEX SUPPLEMENT Care Teams Refinery Operator Helper Cracking Unit Relationship Specialty Start Date End Date Tod Goncalves MD [address] [place] [address] PCP - General 04/05/17 Additional Source Comments The information contained in this document represents components of the legal health record. It is not the complete legal health record.[facility]
--- NOTE | 2025-03-27 09:46 | A.OFFPC_ITS ---
Vital Signs 03/27/25 09:47 Height 5 ft Weight 122 lb 9.232 oz BMI 23.9 BP 118/66 Blood Pressure Location Rt brachial Position Sitting Pulse 68 Pulse Source Pulse Oximeter Temp 97 F Temp Source Temporal Artery Scan Pulse Oximetry (%) 92 Oxygen Delivery Method Room Air Intake Visit Reasons: Hypothyroid Accompanied by: Son Allergies hydrochlorothiazide Allergy (Unknown, Verified 03/27/25 09:47) Electrolyte abnormality oxycodone (OXYCODONE) Allergy (Unknown, Verified 03/27/25 09:47) VOMITTING,CONFUSION amlodipine Adverse Reaction (Intermediate, Verified 03/27/25 09:47) leg swelling lisinopril Adverse Reaction (Intermediate, Verified 03/27/25 09:47) cough losartan Adverse Reaction (Intermediate, Verified 03/27/25 09:47) hyponatremia Medication List - Last Reconciled 03/27/25 by Marie Villanueva MD [low height rollator As directed] acetaminophen 1,000 mg PO DAILY PRN amlodipine 10 mg See Protocol PO DAILY 30 days apixaban (Eliquis) 5 mg PO BID 30 days aspirin 81 mg PO DAILY levetiracetam 1,000 mg PO BID levothyroxine 88 mcg PO DAILY@0600 90 days loratadine 10 mg PO DAILY PRN lorazepam 0.5 mg (1/2 x 1 mg) PO DAILY@1700 magnesium oxide 400 mg PO DAILY metoprolol succinate ER 50 mg PO DAILY omeprazole 20 mg PO BID@0630,1630 pravastatin 40 mg PO DAILY 30 days Tobacco use date assessed: 03/27/25 Fall risk assessment: No Falls in past year Last assessed Fall Risk: 03/27/25 Dental Screening Dental Screen Date: 03/27/25 Did you have a dental visit in the last 12 months?: Yes Did you have a dental problem in the last 6 months where you did not have access to dental care?: No Was dental information given to patient?: Patient has dentist HPI HPI Comments History of Present Illness Details History of Present Illness The patient is an 89 year old female presenting for a follow-up visit for management of hypertension and other chronic conditions. She has a past medical history of hypertension, GERD, hypothyroidism, seizures, hypercholesterolemia, lumbar degenerative disc disease, generalized anxiety disorder, and a thoracic compression fracture. She was last seen in the office in December. The patient has had two recent hospitalizations. She was hospitalized in December for sepsis and acute cholecystitis, where an MRCP showed choledocholithiasis. The gallstones reportedly passed spontaneously, and surgery was deferred as she was considered to be in too rough a shape. She was not complaining of pain from the gallbladder issue, which was found incidentally on scans. In January, she was hospitalized for confusion secondary to a urinary tract infection. She received IV antibiotics, and after discharge, she went to a rehab facility for two weeks. There have been no urinary issues since. 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 She reports sometimes losing feeling in her hands but has not had any falls. Regarding her generalized anxiety disorder, she reports experiencing a lot of anxiety lately and almost had a panic attack. She takes lorazepam as needed, which is almost every day. Her last blood work from February 18 revealed a normal blood count with mild thrombocytopenia, as well as normal electrolytes and renal function. A urine test from February 17 showed a large amount of white blood cells. Health Maintenance - Secondary stroke prevention: The patie nt is on a blood thinner medication to prevent stroke. - Cardiovascular risk reduction: The pat ient is on medications for hypertension and hypercholesterolemia, with a stated LDL goal of less than 100 mg/dL and a triglyceride goal of less than 150 mg/dL. - Fall precautions: The patient was advi sed that if she falls, she must go to the emergency room due to being on a blood thinner. Social History - Functional status: The patient attends a day program where her blood pressure is monitored. - Ambulation: The patient has not had an y recent falls. Results - Laboratory: - Blood work (February 18): Showed a nor mal blood count with mild thrombocytopenia, and normal electrolytes and renal function. - Urinalysis (February 17): Revealed a l arge number of white blood cells. - Imaging: - MRCP (December): Showed choledocholithi asis. - MRI (date unspecified): Revealed ische keena of the left centrum semiovale and huang radiata. [facility] Medical History (Updated 03/27/25 @ 10:21 by Marie Villanueva MD) Hypertension 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 Facial droop Cerebral infarction Left leg DVT Upper respiratory infection COVID-19 virus infection Burning with urination Buttock pain Status post fall Dog bite of right arm Adult general medical exam Screening for diabetes mellitus Impacted cerumen of both ears Facial lesion Overweight (BMI 25.0-29.9) Hip osteoarthritis T12 vertebral fracture Reactive airways dysfunction syndrome Pneumonia Cholelithiasis CVA (cerebral vascular accident) Obesity (BMI 30-39.9) Hypercholesterolemia Vitamin D deficiency Hypothyroid Seizure disorder Anxiety Gout GERD (gastroesophageal reflux disease) Psoriatic arthritis Surgical History History of Mohs surgery for squamous cell carcinoma of skin History of cataract surgery History of colonoscopy History of knee replacement procedure of right knee History of left knee replacement Family History Father No problems noted. Mother Acute CVA (cerebrovascular accident) Diabetes Brother Cancer Daughter History of nephrectomy Son Heart disease Social History Household Members: Family Household Members Other:: daughter Housing: House Do you presently have visiting nurse or other home services: No (goes to adult daycare) Alcohol intake: never Patient Tobacco Use Status: Never used Tobacco Tobacco use type: Cigarette e-Cigarette/Vaping Use: Never Used Second Hand Smoke Exposure: No Advance Directives Date on File: 12/04/23 service: No Current occupational status: retired Cognitive needs: No Hearing needs: Yes (hearing aides) Vision needs: No Questionnaire PHQ-9 Over the last 2 weeks, how often have you been bothered by any of the following problems? 1. Little interest or pleasure in doing things: not at all 2. Feeling down, depressed, or hopeless: not at all 3. Trouble falling or staying asleep, or sleeping too much: not at all 4. Feeling tired or having little energy: not at all 5. Poor appetite or overeating: not at all 6. Feeling bad about yourself - or that you are a failure or have let yourself o r your family down: not at all 7. Trouble concentrating on things, such as reading the newspaper or watching television: not at all 8. Moving or speaking so slowly that other people could have noticed. Or the opposite - being so fidgety or restless that you have been moving around a lot more than usual: not at all 9. Thoughts that you would be better off or of hurting yourself in some way: not at all Total score: 0 Depression Screening Interpretation: Negative Depression Screening Done: Yes Source: Developed by Drs. Satish Summers, Radha Honeycutt, Tani Gonzales and colleagues, with an educational milton from [employer]. Thrive Questionnaire Date Thrive assessed: 08/06/24 I am a: Parent/Caregiver What is your living situation today?: I have a steady place to live Within the past 12 months, did the food you bought not last and you didn't have the money to get more?: I choose not to answer this question Within the past 12 months, did you worry whether your food would run out before you got money to buy more?: I choose not to answer this question Do you have trouble paying for medicines?: I choose not to answer this question Do you have trouble getting transportation to medical appointments?: I choose not to answer this question Do you have trouble paying your heating and electricity bill?: I choose not to answer this question Do you have trouble taking care of your child, family member or friend?: I choose not to answer this question Do you have trouble with day-to-day activities such as bathing, preparing meals, shopping, managing finances, etc.?: I choose not to answer this question Are you currently unemployed and looking for a job?: I choose not to answer this question Are you interested in more education?: I choose not to answer this question Currently or been in a relationship where the following occur: No concerns reported THRIVE Score: 0 AUDIT C Alcohol Use Questionnaire (AUDIT-C) 1. How often do you have a drink containing alcohol?: Never 3. How often do you have six or more drinks on one occasion?: Never Total Score: 0 HAZEL-7 AMB Questionnaire HAZEL-7 Date HAZEL - 7 assessed: 05/05/24 Feeling nervous, anxious, or on edge: 1 = Several days Not being able to stop or control worryin = Several days Worrying too much about different things: 1 = Several days Trouble relaxin = Several days Being so restless that it is hard to sit still: 0 = Not at all Becoming easily annoyed or irritable: 0 = Not at all Feeling afraid as if something awful might happen: 0 = Not at all Total HAZEL-7 score (0-4 normal; 5-9 mild; 10-14 moderate; 15-21 severe): 4 Source: Developed by Drs. Satish Summers, Radha Honeycutt, Tani Gonzales and colleagues, with an educational milton from [employer]. Review of Systems Narrative Review of Systems - Constitutional: Denies nausea and vomiting. - Respiratory: Reports a chronic cough and sneezing. - Denies shortness of breath. - Psychiatric: Reports increased anxiety with a near panic attack. - Neurological: Reports occasional loss of sensation in her hands. Physical exam (Primary Care) Vital Signs: Last Vital Signs Temp 97 F 03/27/25 09:47 Pulse 68 03/27/25 09:47 BP 118/66 03/27/25 09:47 Pulse Ox 92 03/27/25 09:47 Oxygen Delivery Method Room Air 03/27/25 09:47 BMI result Body Mass Index 23.9 Tobacco/Smoking Status: Tobacco use Status Tobacco use date assessed 03/27/25 03/27/25 09:56 Patient Tobacco Use Status Never used Tobacco 03/27/25 09:56 Tobacco use type Cigarette 03/27/25 09:56 e-Cigarette/Vaping Use Never Used 03/27/25 09:56 PHQ-9: PHQ-9 Score PHQ-9: Total score 0 03/27/25 10:22 Depression Screening Interpretation: Negative Thrive Assessment: Date of Thrive Assessment Date Thrive assessed 08/06/24 03/27/25 09:56 Currently or been in a relationship where the following occur: No concerns reported Narrative Physical Exam - General: Patient is alert and oriented, appears giddy. - Vital Signs: Blood pressure is noted to be good. - Respiratory: Lungs were auscultated with no documented findings. 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 Const General: alert; No acute distress Eyes Conjunctivae: conjunctivae normal Resp Auscultation: clear to auscultation bilaterally Cardio Rate: regular rate Rhythm: regular rhythm GI Inspection: Yes normal to inspection Extrem General: Yes normal to inspection and No edema Coding Level of Care Code Est Pt Level 4 (46005) Add On Problem Visit Only Diagnoses Primary hypertension I10 Hypertension type: primary hypertension Hypercholesterolemia E78.00 Acquired hypothyroidism E03.9 Hypothyroidism type: acquired Gastroesophageal reflux disease without esophagitis K21.9 Esophagitis presence: without esophagitis 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 Decrease salt intake and exercise on amlodipine 10 mg once a day metoprolol 50 mg once a day (2) Hypercholesterolemia: Code(s): E78.00 - Pure hypercholesterolemia, unspecified Category: Medical Plan: Avoid fried foods, chicken skin, eggs, butter margarine, pastries and meat. Be it pork or beef they have a lot of cholesterol LDL goal of less than 100 and triglyceride of less than 150 (3) Hypothyroid: Code(s): E03.9 - Hypothyroidism, unspecified Category: Medical Qualifiers: Hypothyroidism type: acquired Qualified Code(s): E03.9 - Hypothyroidism, unspecified Plan: Continue with thyroid medication (4) GERD (gastroesophageal reflux disease): Comment: EGLeanna Mireles April 2018 erosive esophagitis Code(s): K21.9 - Gastro-esophageal reflux disease without esophagitis Category: Medical Qualifiers: Esophagitis presence: without esophagitis Qualified Code(s): K21.9 - Gastro-esophageal reflux disease without esophagitis Plan: Avoid the foods that causes that usually spicy foods, tomato products, juices, coffee, soda and foods that your sensitive to. After eating do not lie down, allow 3-4 hours before in lie down. And keep the head of bed above 30 degrees to avoid the acid from going up. (5) Dementia: Code(s): F03.90 - Unspecified dementia, unspecified severity, without behavioral disturbance, psychotic disturbance, mood disturbance, and anxiety Category: Medical Qualifiers: Dementia behavioral or psychological symptom: without behavioral, psychotic, or mood disturbance or anxiety Dementia severity: moderate Dementia type: vascular dementia Qualified Code(s): F01.B0 - Vascular dementia, moderate, without behavioral disturbance, psychotic disturbance, mood disturbance, and anxiety Plan: Supportive treatment Plan Plan Patient was informed and verbally consented to the use of an ambient scribe for clinic note documentation during this visit. 1. Hypertension Continue current antihypertensive regimen including amlodipine 10 mg and metoprolol 50 mg once daily. The patient's blood pressure is monitored at her day program, and there is a concern to avoid hypotension, as it could contribute to confusion. 2. Hypercholesterolemia Continue current cholesterol medication. The lipid panel goals are an LDL less than 100 mg/dL and triglycerides less than 150 mg/dL as part of secondary stroke prevention. 3. Generalized Anxiety Disorder The patient reports increased anxiety and almost daily use of as-needed lorazepam. The plan is to change the lorazepam to a scheduled dose of half a pill every morning to improve baseline anxiety control. This medication will be continued as it is effective for her, and caregivers will be in touch if refills are needed. 4. History Of Cerebral Ischemia For secondary stroke prevention, the patient will continue on a blood thinner. She has been counseled on fall precautions, including the need to go to the emergency room if a fall occurs. It was determined that a follow-up with neurology may not be necessary if their role is only medication management, as this can be taken over by primary care. 5. History Of Cholelithiasis The patient has a recent history of cholelithiasis that reportedly passed spontaneously. A follow-up appointment with a barista is recommended to ensure the issue is resolved, as was suggested following her hospitalization. 6. Chronic Medical Condition Management Continue current medications for hypothyroidism and GERD. The patient will follow-up with Dr. Lo and will continue to monitor kidney function. Discussion Notes I reviewed the patient's two recent hospitalizations, one for a urinary tract infection and another for sepsis secondary to a gallbladder issue. I explained that the records suggest the gallstone passed spontaneously, but recommended a follow-up with a barista for confirmation, as was previously advised. We discussed the comprehensive strategy for secondary stroke prevention, which includes continuing her blood thinner, maintaining blood pressure control, and managing her cholesterol. I emphasized the risk of bleeding while on a blood thinner and instructed that she must go to the emergency room if she falls. I addressed her increasing anxiety and agreed to continue her lorazepam, as it helps calm her down. We discussed a plan to transition her from as-needed use to a scheduled daily morning dose to see if this provides better and more consistent anxiety control throughout the day. I also noted that follow-up with neurology may no longer be necessary if they are simply refilling medications without making changes, as I can take over this management. Caregivers were informed to contact my office if more medication is needed. Patient Instructions - Continue to take your medications for blood pressure, cholesterol, thyroid, and acid reflux as prescribed. - We will change how you take your anxiety medication, lorazepam. - Please start taking half a pill every morning to help keep you calm throughout the day. - You are on a blood thinner medication. Because of this, if you fall, you must go to the emergency room right away. - Please make an appointment with a stomach specialist (barista) to make sure your gallbladder issue is fully resolved. - If you are running out of your anxiety medication, please have your caregiver or pharmacy contact our office.
[2025-03-27 09:47] VITALS: BP 118/66; PULSE 68; TEMP 36.1; O2SAT 92; BMI 23.9
== END 2025-03-27 10:38 | disposition home or self-care (01) ==
LOC: HO.HMCH 09:42
PROVIDERS: PCP Internal Medicine; Visit Provider Internal Medicine
DX: I10 Essential (primary) hypertension (principal); E78.00 Pure hypercholesterolemia, unspecified; E03.9 Hypothyroidism, unspecified; K21.9 Gastro-esophageal reflux disease without esophagitis; F01.B0 Vascular dementia, moderate, without behavioral disturbance, psychotic disturbance, mood disturbance, and anxiety

== ENCOUNTER → 2025-03-27 09:41 | Outpatient (BNVA) | payer MEDICARE, SELFPAY | PROVIDERS: PCP Internal Medicine; Visit Provider Internal Medicine | DX: F01.B4 Vascular dementia, moderate, with anxiety (principal); I67.82 Cerebral ischemia; I10 Essential (primary) hypertension; E78.00 Pure hypercholesterolemia, unspecified; E03.9 Hypothyroidism, unspecified; K21.9 Gastro-esophageal reflux disease without esophagitis; Z13.31 Encounter for screening for depression; Z86.19 Personal history of other infectious and parasitic diseases; Z86.73 Personal history of transient ischemic attack (TIA), and cerebral infarction without residual deficits; Z87.440 Personal history of urinary (tract) infections; Z87.19 Personal history of other diseases of the digestive system; Z79.01 Long term (current) use of anticoagulants; Z79.82 Long term (current) use of aspirin; Z79.890 Hormone replacement therapy; Z79.899 Other long term (current) drug therapy | CPT/HCPCS: 96127; 99212 ==

== ENCOUNTER 2025-04-01 12:28 | Outpatient (AMB) | payer MEDICARE, SELFPAY ==
--- NOTE | 2025-04-01 12:29 | HO.NEPHOV ---
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 She recently had 2 hospitalizations. Her BP is at goal on metoprolol. She recently had CVA and later AMS, from which she has improved. She was accompanied by her son. She does not have any urinary symptoms now. Her Na has been stable. She has no SOB, weakness, edema. Her recent sodium and creatinine has been stable. [facility] Medical History (Updated 03/27/25 @ 10:21 by Marie Villanueva MD) Hypertension 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 Facial droop Cerebral infarction Left leg DVT Upper respiratory infection COVID-19 virus infection Burning with urination Buttock pain Status post fall Dog bite of right arm Adult general medical exam Screening for diabetes mellitus Impacted cerumen of both ears Facial lesion Overweight (BMI 25.0-29.9) Hip osteoarthritis T12 vertebral fracture Reactive airways dysfunction syndrome Pneumonia Cholelithiasis CVA (cerebral vascular accident) Obesity (BMI 30-39.9) Hypercholesterolemia Vitamin D deficiency Hypothyroid Seizure disorder Anxiety Gout GERD (gastroesophageal reflux disease) Psoriatic arthritis Surgical History History of Mohs surgery for squamous cell carcinoma of skin History of cataract surgery History of colonoscopy History of knee replacement procedure of right knee History of left knee replacement Family History Father No problems noted. Mother Acute CVA (cerebrovascular accident) Diabetes Brother Cancer Daughter History of nephrectomy Son Heart disease Social History (Reviewed 04/01/25 @ 12:32 by DORIS Null Household Members: Family Household Members Other:: daughter Housing: House Do you presently have visiting nurse or other home services: No (goes to adult daycare) Alcohol intake: never Patient Tobacco Use Status: Never used Tobacco Tobacco use type: Cigarette e-Cigarette/Vaping Use: Never Used Second Hand Smoke Exposure: No Advance Directives Date on File: 12/04/23 service: No Current occupational status: retired Cognitive needs: No Hearing needs: Yes (hearing aides) Vision needs: No Review of Systems Const All systems reviewed & are unremarkable except as noted in HPI and below Physical Exam Const General: comfortable and no acute distress Orientation/consciousness: patient oriented x3 HEENT Head: Yes normocephalic Mouth: Normal oral and palatal mucosa present Eyes EOM: EOMs intact bilaterally Neck Neck: Yes supple Resp Auscultation: clear to auscultation bilaterally Cardio Jugular venous distension: no JVD Rate: regular rate GI Palpation (GI): Soft to palpation Auscultation: normal bowel sounds General: Yes no CVA tenderness Back/Spine/Pelvis Back: no CVA tenderness Skin General skin exam: no rashes or lesions noted Neuro General: patient oriented x3 and moves all extremities Extrem General: Yes no pedal edema Results Reviewed Nephrology Results: Hgb, (12.0-16.0) 13.1 g/dl 02/18/25 WBC, (4.8-10.8) 5.3 X10*3/uL 02/18/25 Plt Count, (160-400) 153 X10*3/uL L 02/18/25 Sodium, (135-145) 136 mmol/L 02/18/25 Potassium, (3.3-5.1) 3.5 mmol/L 02/18/25 Chloride, (96-108) 103 mmol/L 02/18/25 Carbon Dioxide, (22-29) 24 mmol/L 02/18/25 BUN, (9-16) 6 mg/dL L 02/18/25 Creatinine, (0.5-1.4) 0.53 mg/dL 02/18/25 Calcium, (8.4-10.2) 9.0 mg/dL 02/18/25 Urine Protein, (Neg-Trace) Negative mg/dL 02/17/25 Assessment & Plan Assessment & Plan (1) Hypertension: Code(s): I10 - Essential (primary) hypertension Category: Medical Qualifiers: Hypertension type: primary hypertension Qualified Code(s): I10 - Essential (primary) hypertension Plan Dulce has H/O euvolemic hyponatremia. She had mental status changes which is resolved. Her weakness and mentation is back to baseline. She does not taking excessive amount of free water. Her serum sodium is normal now. Her BP is at goal on current medications. I did not make any medication changes today. Follow up given Orders: Orders Blood Urea Nitrogen 8 Months I10 - Essential (primary) hypertension Creatinine 8 Months I10 - Essential (primary) hypertension Electrolytes 8 Months I10 - Essential (primary) hypertension Coding Level of Care Code Est Pt Level 4 (37676) Diagnoses Primary hypertension I10 Hypertension type: primary hypertension
[2025-04-01 12:32] VITALS: BP 100/56
--- OUTSIDE RECORDS SUMMARY | 2025-04-01 14:06 | XMS_ITS | Clinical Summary ---
Author Organization [facility] Address [address] [place] [address] Phone Care Team Providers Care Slicer Machine Operator Name Role Phone Tod Goncalves MD Primary [...] Payer (Ef fective 2001-Present) Name:Janeth Dorado Member ID:[id number] Relation to Subscriber:Self Name:Janeth Dorado Subscriber ID:[id number] Payer ID:[id number] Group ID:Not on file Type:Medicare Address: [employer] [id number] [email or web address] SUPPLEMENT MEDICARE PART A & B [employer] SUPPLEMENT MEDICARE PART A & B [employer] SUPPLEMENT MEDICARE PART A & B [employer] SUPPLEMENT MEDICARE PART A & B [employer] SUPPLEMENT MEDICARE PART A & B [employer] SUPPLEMENT MEDICARE PART A & B [employer] SUPPLEMENT MEDICARE PART A & B [employer] SUPPLEMENT Care Teams Slicer Machine Operator Relationship Specialty Start Date End Date Tod Goncalves MD [address] [place] [address] PCP - General 04/05/17 Additional Source Comments The information contained in this document represents components of the legal health record. It is not the complete legal health record.[facility]
--- OUTSIDE RECORDS SUMMARY | 2025-04-01 14:07 | XMS_ITS | Clinical Summary ---
Author Organization [address] [facility] Address [address] [place] [address] Phone Care Team Providers Care Net Coordinator Name Role Phone Atul Fuentes MD Primary Care Provider [phone] Encounters Date Type Department Care Team Description 03/04/2025 Lab Requisition [facility] - Main Lab [address] [facility] [place] [place] [address] Atul Fuentes MD Urinary tract [...] 0 - 200 mg/dL 03/04/2025 12:52 PM [facility] Triglycerides 102 0 - 150 mg/dL 03/04/2025 12:52 PM [facility] HDL 52 >=40 mg/dL 03/04/2025 12:52 PM [facility] LDL Calculated 67 0 - 100 mg/dL 03/04/2025 12:52 PM [facility] Comment:Estimated LDL Calcul ated using equation: Total cholesterol - HDL cholesterol - (Triglycerides/5) VLDL Cholesterol Fady 20.4 mg/dL 03/04/2025 12:52 PM [facility] Non HDL Chol. (LDL+VLDL) 87 <145 mg/dL 03/04/2025 12:52 PM [facility] Chol/HDL Ratio 2.7 0.0 - 4.4 03/04/2025 12:52 PM [facility] Blood Venous blood specimen / Unknown Venipuncture / Unknown 03/04/2025 7:47 AM EST 03/04/2025 11:27 AM EST Atul Fuentes MD LAB BLOOD ORDERABLES Final Resul t [facility] [address] [place] [address], * (ABNORMAL) CBC auto differential (03/04/2025 7:47 AM EST) WBC 7.8 4.8 - 10.8 K/mcL LAB HEMETOLOGY METHOD 03/04/2025 12:24 PM [facility] RBC 4.20 3.80 - 4.80 M/mcL LAB HEMETOLOGY METHOD 03/04/2025 12:24 PM [facility] Hemoglobin 12.9 11.5 - 16.0 g/dL LAB HEMETOLOGY METHOD 03/04/2025 12:24 PM [facility] Hematocrit 38.4 35.0 - 47.0 % LAB HEMETOLOGY METHOD 03/04/2025 12:24 PM [facility] MCV 90.8 79.0 - 98.0 FL LAB HEMETOLOGY METHOD 03/04/2025 12:24 PM [facility] MCH 30.5 27.0 - 32.0 pcg LAB HEMETOLOGY METHOD 03/04/2025 12:24 PM [facility] MCHC 33.6 32.0 - 37.0 g/dL LAB HEMETOLOGY METHOD 03/04/2025 12:24 PM [facility] RDW 13.3 11.0 - 15.0 % LAB HEMETOLOGY METHOD 03/04/2025 12:24 PM [facility] Platelets 299 130 - 400 K/mcL LAB HEMETOLOGY METHOD 03/04/2025 12:24 PM [facility] MPV 10.6 7.0 - 11.0 FL LAB HEMETOLOGY METHOD 03/04/2025 12:24 PM [facility] NRBC 0.0 <1.0 % LAB HEMETOLOGY METHOD 03/04/2025 12:24 PM [facility] NRBC Absolute 0.00 <0.10 K/mcL LAB HEMETOLOGY METHOD 03/04/2025 12:24 PM [facility] Neutrophils Relative 81.1 % LAB HEMETOLOGY METHOD 03/04/2025 12:24 PM [facility] Lymphocytes Relative 9.4 % LAB HEMETOLOGY METHOD 03/04/2025 12:24 PM [facility] Monocytes Relative 6.0 % LAB HEMETOLOGY METHOD 03/04/2025 12:24 PM [facility] Eosinophils Relative 2.4 % LAB HEMETOLOGY METHOD 03/04/2025 12:24 PM [facility] Basophils Relative 0.8 % LAB HEMETOLOGY METHOD 03/04/2025 12:24 PM [facility] Immature Granulocytes Relative 0.3 % LAB HEMETOLOGY METHOD 03/04/2025 12:24 PM [facility] Neutrophils Absolute 6.31 1.50 - 7.00 K/mcL LAB HEMETOLOGY METHOD 03/04/2025 12:24 PM [facility] Lymphocytes Absolute 0.73(L) 1.00 - 5.00 K/mcL LAB HEMETOLOGY METHOD 03/04/2025 12:24 PM [facility] Monocytes Absolute 0.47 0.20 - 1.00 K/mcL LAB HEMETOLOGY METHOD 03/04/2025 12:24 PM [facility] Eosinophils Absolute 0.19 0.00 - 0.50 K/mcL LAB HEMETOLOGY METHOD 03/04/2025 12:24 PM EST [facility] Basophils Absolute 0.06 0.00 - 0.20 K/[facility] LAB HEMETOLOGY METHOD 03/04/2025 12:24 PM EST [facility] Immature Granulocytes Absolute 0.02 0.00 - 0.03 K/[facility] LAB HEMETOLOGY METHOD 03/04/2025 12:24 PM EST [facility] Blood Venous blood specimen / Unknown Venipuncture / Unknown 03/04/2025 7:47 AM EST 03/04/2025 11:27 AM EST us Atul Fuentes MD LAB BLOOD ORDERABLES Final Resul t Performing Organization Address City/[facility]/ZIP Co de Phone Number [facility] [address] [place] [address], [place] [phone] * (ABNORMAL) Thyroid stimulating hormone (03/04/2025 7:47 AM EST) TSH 8.71(H) 0.40 - 4.00 mcIU/mL 03/04/2025 3:12 PM EST [facility] Blood Venous blood specimen / Unknown Venipuncture / Unknown 03/04/2025 7:47 AM EST 03/04/2025 11:27 AM EST us Atul Fuentes MD LAB BLOOD ORDERABLES Final Resul t [facility] [address] [place] [address], [place] [phone] * (ABNORMAL) Comprehensive metabolic panel (03/04/2025 7:47 AM EST) Sodium 137 133 - 145 mmol/L 03/04/2025 12:52 PM EST [facility] Potassium 4.4 3.5 - 5.5 mmol/L 03/04/2025 12:52 PM [facility] Chloride 97 96 - 110 mmol/L 03/04/2025 12:52 PM [facility] CO2 26 21 - 32 mmol/L 03/04/2025 12:52 PM [facility] Anion Gap 14(H) 3 - 11 03/04/2025 12:52 PM [facility] Glucose 89 70 - 100 mg/dL 03/04/2025 12:52 PM [facility] BUN 8 5 - 25 mg/dL 03/04/2025 12:52 PM [facility] Creatinine 0.73 0.50 - 1.10 mg/dL 03/04/2025 12:52 PM [facility] eGFR 79 >=60 mL/min/1. 73m2 03/04/2025 12:52 PM [facility] Comment:Calculation based on the Chronic Kidney Disease Epidemiology Collaboration (CKD-EPI) equation refit without adjustment for race. BUN/Creatinine Ratio 11.0 03/04/2025 12:52 PM [facility] Calcium 9.4 8.5 - 10.5 mg/dL 03/04/2025 12:52 PM [facility] AST (SGOT) 21 10 - 42 unit/L 03/04/2025 12:52 PM [facility] ALT (SGPT) 60 10 - 60 unit/L 03/04/2025 12:52 PM [facility] Alkaline Phosphatase 132(H) 42 - 121 unit/L 03/04/2025 12:52 PM [facility] Total Protein 6.8 6.0 - 8.0 g/dL 03/04/2025 12:52 PM [facility] Albumin 4.1 3.2 - 5.0 g/dL 03/04/2025 12:52 PM [facility] Total Bilirubin 0.4 0.0 - 1.4 mg/dL 03/04/2025 12:52 PM EST [facility] Blood Venous blood specimen / Unknown Venipuncture / Unknown 03/04/2025 7:47 AM EST 03/04/2025 11:27 AM EST Atul Fuentes MD LAB BLOOD ORDERABLES Final Resul t [facility] ([facility]) [facility] [address] [place] [address], [place] [phone] from Last 3 Months Insurance MEDICARE [facility] Care Teams Net Coordinator Relationship Specialty Start Date End Date Atul Fuentes MD [address] [place] [address] [address] [place] [address] PCP - General Geriatric Medicine 03/04/25
--- OUTSIDE RECORDS SUMMARY | 2025-04-01 14:07 | XMS_ITS | Encounter Summary ---
Author Organization [employer] Address [address] [place] [address] Care Team Providers Care Manager Psychology Name Role Phone Atul Fuentes MD Primary Care Provider [phone] Encounter Details Date Type Department Care Team (Latest Contact Info) Description 03/04/2025 Lab Requisition [facility] - Main Lab [address] [facility] [address] [facility] [place] [address] Atul Fuentes MD [address] [place], [place] [id number] Urinary tract infection, site not specified; Atrioventricular [...] 12:[address] [facility] RBC 4.20 3.80 - 4.80 M/mcL LAB HEMETOLOGY METHOD 03/04/2025 12:[address] [facility] Hemoglobin 12.9 11.5 - 16.0 g/dL LAB HEMETOLOGY METHOD 03/04/2025 12:[address] [facility] Hematocrit 38.4 35.0 - 47.0 % LAB HEMETOLOGY METHOD 03/04/2025 12:[address] [facility] MCV 90.8 79.0 - 98.0 FL LAB HEMETOLOGY METHOD 03/04/2025 12:[address] [facility] MCH 30.5 27.0 - 32.0 pcg LAB HEMETOLOGY METHOD 03/04/2025 12:[address] [facility] MCHC 33.6 32.0 - 37.0 g/dL LAB HEMETOLOGY METHOD 03/04/2025 12:[address] [facility] RDW 13.3 11.0 - 15.0 % LAB HEMETOLOGY METHOD 03/04/2025 12:[address] [facility] Platelets 299 130 - 400 K/mcL LAB HEMETOLOGY METHOD 03/04/2025 12:[address] [facility] MPV 10.6 7.0 - 11.0 FL LAB HEMETOLOGY METHOD 03/04/2025 12:[address] [facility] NRBC 0.0 <1.0 % LAB HEMETOLOGY METHOD 03/04/2025 12:[address] [facility] NRBC Absolute 0.00 <0.10 K/mcL LAB HEMETOLOGY METHOD 03/04/2025 12:[address] [facility] Neutrophils Relative 81.1 % LAB HEMETOLOGY METHOD 03/04/2025 12:[address] [facility] Lymphocytes Relative 9.4 % LAB HEMETOLOGY METHOD 03/04/2025 12:[address] [facility] Monocytes Relative 6.0 % LAB HEMETOLOGY METHOD 03/04/2025 12:[address] [facility] Eosinophils Relative 2.4 % LAB HEMETOLOGY METHOD 03/04/2025 12:[address] [facility] Basophils Relative 0.8 % LAB HEMETOLOGY METHOD 03/04/2025 12:[address] [facility] Immature Granulocytes Relative 0.3 % LAB HEMETOLOGY METHOD 03/04/2025 12:[address] [facility] Neutrophils Absolute 6.31 1.50 - 7.00 K/mcL LAB HEMETOLOGY METHOD 03/04/2025 12:[address] [facility] Lymphocytes Absolute 0.73(L) 1.00 - 5.00 K/mcL LAB HEMETOLOGY METHOD 03/04/2025 12:[address] [facility] Monocytes Absolute 0.47 0.20 - 1.00 K/mcL LAB HEMETOLOGY METHOD 03/04/2025 12:[address] [facility] Eosinophils Absolute 0.19 0.00 - 0.50 K/mcL LAB HEMETOLOGY METHOD 03/04/2025 12:[address] [facility] Basophils Absolute 0.06 0.00 - 0.20 K/mcL LAB HEMETOLOGY METHOD 03/04/2025 12:[address] [facility] Immature Granulocytes Absolute 0.02 0.00 - 0.03 K/mcL LAB HEMETOLOGY METHOD 03/04/2025 12:[address] [facility] Blood Venous blood specimen / Unknown Venipuncture / Unknown 03/04/2025 7:47 AM EST 03/04/2025 11:27 AM EST us Atul Fuentes MD LAB BLOOD ORDERABLES Final Resul t [facility] [address] [place] [address], * (ABNORMAL) Thyroid stimulating hormone (03/04/2025 7:47 AM EST) TSH 8.71(H) 0.40 - 4.00 mcIU/mL 03/04/2025 3:[address] [facility] Blood Venous blood specimen / Unknown Venipuncture / Unknown 03/04/2025 7:47 AM EST 03/04/2025 11:27 AM EST Atul Fuentes MD LAB BLOOD ORDERABLES Final Resul t [facility] [address] [place] [address], * Lipid panel with reflex to direct LDL (03/04/2025 7:47 AM EST) Cholesterol 139 0 - 200 mg/dL 03/04/2025 12:[address] [facility] Triglycerides 102 0 - 150 mg/dL 03/04/2025 12:[address] [facility] HDL 52 >=40 mg/dL 03/04/2025 12:[address] [facility] LDL Calculated 67 0 - 100 mg/dL 03/04/2025 12:[address] [facility] Comment:Estimated LDL Calcul ated using equation: Total cholesterol - HDL cholesterol - (Triglycerides/5) VLDL Cholesterol Fady 20.4 mg/dL 03/04/2025 12:[address] [facility] Non HDL Chol. (LDL+VLDL) 87 <145 mg/dL 03/04/2025 12:[address] [facility] Chol/HDL Ratio 2.7 0.0 - 4.4 03/04/2025 12:[address] [facility] Blood Venous blood specimen / Unknown Venipuncture / Unknown 03/04/2025 7:47 AM EST 03/04/2025 11:27 AM EST us Atul Fuentes MD LAB BLOOD ORDERABLES Final Resul t [facility] [address] [place] [address], * (ABNORMAL) Comprehensive metabolic panel (03/04/2025 7:47 AM EST) Sodium 137 133 - 145 mmol/L 03/04/2025 12:[address] [facility] Potassium 4.4 3.5 - 5.5 mmol/L 03/04/2025 12:[address] [facility] Chloride 97 96 - 110 mmol/L 03/04/2025 12:[address] [facility] CO2 26 21 - 32 mmol/L 03/04/2025 12:[address] [facility] Anion Gap 14(H) 3 - 11 03/04/2025 12:[address] [facility] Glucose 89 70 - 100 mg/dL 03/04/2025 12:[address] [facility] BUN 8 5 - 25 mg/dL 03/04/2025 12:[address] [facility] Creatinine 0.73 0.50 - 1.10 mg/dL 03/04/2025 12:[address] [facility] eGFR 79 >=60 mL/min/1. 73m2 03/04/2025 12:[address] [facility] Comment:Calculation based on the Chronic Kidney Disease Epidemiology Collaboration (CKD-EPI) equation refit without adjustment for race. BUN/Creatinine Ratio 11.0 03/04/2025 12:[address] [facility] Calcium 9.4 8.5 - 10.5 mg/dL 03/04/2025 12:[address] [facility] AST (SGOT) 21 10 - 42 unit/L 03/04/2025 12:[address] [facility] ALT (SGPT) 60 10 - 60 unit/L 03/04/2025 12:[address] [facility] Alkaline Phosphatase 132(H) 42 - 121 unit/L 03/04/2025 12:[address] [facility] Total Protein 6.8 6.0 - 8.0 g/dL 03/04/2025 12:[address] [facility] Albumin 4.1 3.2 - 5.0 g/dL 03/04/2025 12:[address] [facility] Total Bilirubin 0.4 0.0 - 1.4 mg/dL 03/04/2025 12:[address] [facility] Blood Venous blood specimen / Unknown Venipuncture / Unknown 03/04/2025 7:47 AM EST 03/04/2025 11:27 AM EST Atul Fuentes MD LAB BLOOD ORDERABLES Final Resul t [facility] [address] [place] [address], documented in this encounter Visit Diagnoses Diagnosis Urinary tract infection, site not specified Atrioventricular block, first degree First degree atrioventricular block 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
--- OUTSIDE RECORDS SUMMARY | 2025-04-01 14:07 | XMS_ITS | Patient Health Record ---
Author Organization [facility] Address [address] [place] [address] Care Team Providers Care Director Of User Experience Name Role Phone Po Marie STACK Primary Care Provider Satish Villagran [phone] Reason For Referral No Information Problems Problem Type SNOMED Code ICD Code Onset Dates Problem Status W/U Status Risk Notes Problem Dysphagia (39433903) Dysphagia (R13.10) Active confirmed Plan Of Treatment No Information Insurance Providers Payer Name Payer Address Payer Phone Subscriber Number Group Number Insured Name Patient Relationship to Insured Coverage Start Date Coverage End Date MEDICARE OF [place] [address] [place] [address] [id number] JANETH WELDON Self - patient is the insured [employer] CLAIMS [address] [place] [address] [id number] JANETH WELDON Self - patient is the insured
--- OUTSIDE RECORDS SUMMARY | 2025-04-01 14:07 | XMS_ITS | Clinical Summary ---
Author Organization [facility] Address [address] [address] Care Team Providers Care Loftsman Name Role Phone Marie Villanueva MD Primary Care Provider [phone] Social History Tobacco Use Types Packs/Day Years [...] age to complete this topic Insurance Medicare [facility] Medicare [facility] Care Teams Loftsman Relationship Specialty Start Date End Date Marie Villanueva MD [facility] [address] [place], [place] PCP - General 04/12/20
== END 2025-04-01 12:54 | disposition home or self-care (01) ==
LOC: HO.HKA 12:28
PROVIDERS: PCP Internal Medicine; Visit Provider Internal Medicine Nephrology
DX: I10 Essential (primary) hypertension (principal)
CPT/HCPCS: 99214

== ENCOUNTER → 2025-04-01 12:28 | Outpatient (BNVA) | payer MEDICARE, SELFPAY | PROVIDERS: PCP Internal Medicine; Visit Provider Internal Medicine Nephrology | DX: I10 Essential (primary) hypertension (principal) | CPT/HCPCS: 99212 ==